=== PATIENT | male | born 1945 | race Caucasian/White ===

== ENCOUNTER → 2016-10-13 | Outpatient (CLI) | payer MEDICARE, OTHER ==
[~2016-10-13] MED LIST: AMIODARONE 200200 MG PO; AMLODIPINE BESY10 MG PO; AMLODIPINE10 MG PO; ASPIRIN 81MG TA81 MG PO; BACTRIM DS 8001 TAB PO; CHEWABLE ASPIRI81 MG PO; CIPROFLOXACIN500 MG PO; CLONIDINE 0.2M0.2 MG PO; CLONIDINE0.2 MG PO; CORICIDIN COUGH1 TAB PO; FERROUS SULFAT325 M2 PO; FLAGYL 500MG.500 MG PO; HYOSCYAMINE0.125 M1 PO; LABETALOL200 MG PO; LISINOPRIL40 MG PO; LOVASTATIN40 MG PO; METOPROLOL25 MG PO; NEXIUM40 MG PO; OPTIMUM VITAMIN1 TAB PO; PLAVIX75 M1 PO; PLAVIX75 MG PO; POTASSIUM CHLO20 ME2 PO; PROMETHAZINE HC25 M1 PO; RISPERDAL 0.50.5 MG NG; RISPERIDONE0.5 MG PO; TAMSULOSIN HYD0.4 MG PO; VISTARIL25 M1 PO; VITAMIN D1 TAB PO; WARFARIN SODIU7.5 MG PO; WARFARIN SODIUM5 MG PO; ZETIA10 MG PO
[2016-10-13 11:14] LABS: URINE BILIRUBIN - DIPSTICK NEGATIVE (NEG); URINE BLOOD NEGATIVE (NEG)
== END ==
LOC: LAB 10:41
PROVIDERS: Family Medicine
DX: N39.0 Urinary tract infection, site not specified (principal)

== ENCOUNTER → 2016-11-07 | Outpatient (CLI) | payer MEDICARE, OTHER ==
[2016-11-08 18:07] LABS: URINE BILIRUBIN - DIPSTICK NEGATIVE (NEG); URINE BLOOD TRACE-INTACT (NEG)
[2016-11-08 18:20] LABS: URINE SQUAMOUS CELLS OCC #/hpf (OCC)
== END ==
LOC: LAB 15:06
PROVIDERS: Family Medicine
DX: N39.0 Urinary tract infection, site not specified (principal)

== ENCOUNTER 2016-11-21 10:54 | Inpatient (IN) | payer MEDICARE, OTHER ==
[~2016-11-21] VITALS: Ht 195.6 cm; Wt 100.3 kg
[2016-11-21 10:55] VITALS: BP 123/90
--- NOTE | 2016-11-21 11:04 | Emergency Room Report ---
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 PT FAMILY REPORTED TO EMS PT HAS BEEN HAVING GENERALIZED WEAKNESS AND NOT MOVING AROUND MUCH NORMAL. 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 N Clinical Suspician of Infection? N Mental Status: 1 - Regular (Normal Baseline) Sepsis Risk:Possible Sepsis Risk Have you (or family members/close friends) recently traveled outside the [place]? N If Yes, where/when: Have you had exposure to infectious disease within the past month? N TB? Other? Specify: Comment History obtained from the patient and family. He is brought in by ambulance. Family states he was [facility] from a [facility] a week ago and was doing okay, ambulatory with assistance, until 2 days ago. Since then he has been very weak and complaining of pain and tenderness, pain with movement in his LEFT shoulder. The patient is a poor historian and inconsistent. He variously complains of pain in his LEFT shoulder, his back, and his LEFT lower quadrant of his abdomen which she calls "my side". Family says that yesterday he seemed to be having some trouble breathing, but seemed better today. In the emergency department they say he is again having some labored respirations. Home health nurse yesterday thought he might have a UTI and collected a urine specimen. Results not available yet. ALLERGIES Coded Allergies: No Known Allergies (07/18/15) Home Medications Active Scripts Ferrous Sulfate (Ferrous Sulfate 325MG) 325 MG PO BID #30 TAB Ref 4 Prov: 09/04/15 Lovastatin 40 MG PO QHS #30 TAB Ref 3 Prov: 09/04/15 ASPIRIN (Aspirin) 81 MG PO DAILY #30 TABLET Ref 2 Prov: 09/04/15 Reported Medications Clopidogrel Bisulfate (Plavix) 75 MG PO #30 Ref 2 Amlodipine Besylate 2.5 MG PO DAILY OXYCODONE HCL (Oxycodone Hydrochloride) 5 MG PO Q4HP PRN PAIN Acetaminophen (Acetaminophen Extra Strength) 1,000 MG PO Q6HP PRN PAIN Cyanocobalamin (Vitamin B-12) (B-12) 500 MCG PO DAILY Famotidine (Pepcid 20MG) 20 MG PO DAILY Metoprolol Tartrate 25 MG PO BID CHOLECALCIFEROL (VITAMIN D3) (Vitamin D) 1 TAB PO DAILY Metoprolol Tartrate (Metoprolol 25MG) 25 MG PO BID Furosemide (Lasix 40MG) 40 MG PO BID Metolazone (Metolazone 5MG Tablet) 5 MG PO DAILY POTASSIUM CHL (Potassium Chloride) 20 MEQ PO TID Risperidone (Risperdal 0.5 Mg Tablet) 0.5 MG PO BID Lorazepam (Ativan) 0.5 MG PO QID PRN ANXIETY Ezetimibe 10 MG PO QHS History Medical History General CAD? No Angina: Yes [place]: No Hypertension? Yes Hyperlipidemia? Yes CHF? No COPD? No Asthma? No Anemia? Yes GERD? Yes Hernia? No Thyroid Problems? Yes Hypothyroidism? No CVA? Yes Seizures? No Diabetes? No End Stage Renal Disease? No UTI? No Stones? No GB Disease: No Nephritic Syndrome? No Asplenia? No Hepatitis? No Sickle Cell Disease? No Arthritis? No Cataracts? Yes Glaucoma? No MRSA? No TB? No Cancer? No More? Yes Additional hx: SHARKO FOOT, AFIB Immunization Hx DT/Tetanus 5-10 YRS Flu REFUSES Pneumonia Refuses Surgical Hx Previous Surgery?Y RIGHT KNEE APPY DULCE CATARACTS CARDIAC CATH WITH STENT Family History Family Hx Diabetes No CAD No Hypertension Yes Hyperlipidemia No Cancer No TB No Social History Smoking Hx Smoker: Never Smoker Tobacco: No Packs/day N/A Alcohol Alcohol: No Review of Systems All Other Systems Reviewed and Negative Constitutional denies fever, malaise, weakness Respiratory shortness of breath Gastrointestinal abdominal pain Musculoskeletal see HPI, back pain, joint pain Physical Exam Vital Signs Vital Signs Date Time Temp Pulse Resp B/P Pulse O2 O2 Flow FiO2 Ox Delivery Rate 11/21 1429 97.4 110 20 141/85 94 11/21 1347 106 20 135/90 96 11/21 1245 103 20 132/81 96 11/21 1140 106 20 124/86 95 11/21 1055 97.8 103 20 123/90 94 General Appearance debilitated Eye Exam - bilateral eye normal exam, bilateral eye PERRL, bilateral eye EOMI Ear, Nose, Throat hearing grossly normal, normal ENT inspection Neck normal inspection, non-tender, supple, full range of motion Respiratory Status Yes: trachea midline, chest symmetrical, tender on palpation (LEFT). No: respiratory distress. Lung Sounds bilateral: normal breath sounds, lungs clear. Cardiovascular normal exam, regular rate/rhythm, no peripheral edema, no gallop, no JVD, no murmur, no rub, normal peripheral pulses Peripheral Pulses Pulses normal Yes Gastrointestinal normal bowel sounds, soft, no organomegaly, tenderness (mild generalized) Extremities tender LEFT shoulder. No erythema, edema, ecchymosis, or deformity. 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 No Results/Orders Laboratory Tests 11/21/16 1140: Lactic Acid 1.6 11/21/16 1055: Urine Color DK YELLOW, Urine Appearance TURBID, Urine pH 7.5, Ur Specific [place] 1.010, Urine Protein 1+ H, Urine Ketones NEGATIVE, Urine Blood 3+ H, Urine Nitrate POSITIVE H, Urine Bilirubin NEGATIVE, Urine Urobilinogen 4.0, Ur Leukocyte Esterase 1+ H, Urine RBC 20-50, Urine WBC 20-50, Ur Squamous Epith Cells 3-5, Urine Bacteria 4+, Urine Glucose NEGATIVE 11/21/16 1050: Creatine Kinase 32 L, CK-MB (CK-2) Rel Index 1.6, CK and CKMB Interp < 0.5, Troponin I < 0.02 11/21/16 1050: Sodium 134 L, Potassium 4.7, Chloride 100, Carbon Dioxide 27, BUN 41 H, Creatinine 1.5 H, Estimated Creat Clear 70, Estimated GFR (MDRD) 46, Glucose 108 H, Calcium 8.7, Total Bilirubin 1.5 H, AST 39 H, ALT 35, Alkaline Phosphatase 405 H, Total Protein 8.4 H, Albumin 2.0 L, Globulin 6.4 H, Albumin/Globulin Ratio 0.3 L, WBC 13.3 H, RBC 4.35 L, Hgb 11.1 L, Hct 37.8 L, MCV 86.9, RDW 17.2, Plt Count 267, MPV 7.3 L, Gran % 88.9 H, Gran # 11.9 H , Total Counted 100, Lymphocytes % 5.5 L, Monocytes % 5.3, Eosinophils % 0.1, Basophils % 0.2, Neutrophils 89 H, Band Neutrophils 2, Lymphocytes (Manual) 6 L, Lymphocytes # 0.7, Monocytes (Manual) 2, Monocytes # 0.7, Eosinophils # 0.0, Eosinophils # (Manual) 1, Basophils # 0.0, Platelet Estimate NORMAL, Hypochromasia 1+, Anisocytosis 1+, PUBS MCHC 29.3 L, MCH 25.5 L Current Medication Orders Sig/Oleg Start time Last Medication Dose Route Stop Time Status Admin Amlodipine Besylate 10 MG DAILY 11/22 0900 AC PO Aspirin 81 MG DAILY 11/22 09 AC PO Ceftriaxone Sodium 1 GM 0900 11/22 0900 AC Sodium Chloride 50 ML IV Clopidogrel Bisulfate 75 MG DAILY 11/22 0900 AC PO Ferrous Sulfate 325 MG BID 11/21 2099 AC PO Metoprolol Tartrate 25 MG BID 11/21 2100 AC PO Potassium Chloride 20 MEQ TID 11/21 2100 AC PO Risperidone 0.5 MG BID 11/21 2100 AC PO Ceftriaxone Sodium 1 GM 0900 11/21 1330 DC Sodium Chloride 50 ML IV Lorazepam 0.5 MG QIDP PRN 11/21 1330 AC PO Sodium Chloride 10 ML PRN PRN 11/21 1330 AC IV Influenza Virus 0.5 ML PRN PRN 11/21 1315 AC Vaccine Quadrival IM Nicotine 21 MG DAILYP PRN 11/21 1315 AC TD Sodium Chloride 1,000 ML .[id number] 11/21 1315 AC IV Ceftriaxone Sodium 0 .STK-MED ONE 11/21 1235 DC IV Sodium Chloride 50 ML .STK-MED ONE 11/21 1235 DC IV Ceftriaxone Sodium 1 GM ONCE ONE 11/21 1145 DC 11/21 Sodium Chloride 50 ML IV 11/21 1214 1237 Sodium Chloride 10 ML PRN PRN 11/21 1100 AC IV 11/22 1055 Orders Procedure Date/time Status CBC WITH AUTO DIFF 11/22 0600 Active BASIC METABOLIC PROFILE 11/22 0600 Active [id number] FAT/LO CHO/ALEENA 11/21 D Active Decision to admit 11/[address] ABD/PELVIS REQ 11/21 1129 Complete CULTURE, BLOOD 11/21 1116 Active LACTIC ACID 11/21 1116 Complete ELECTROCARDIOGRAM REQUEST 11/21 1103 Active CARDIAC ENZYMES 11/21 1103 Complete URINALYSIS/COMPLETE 11/21 1056 Complete IV SALINE LOCK 11/21 1055 Active CULTURE, URINE 11/21 1055 Active CBC WITH AUTO DIFF 11/21 1055 Complete CHEM 12 PROFILE 11/21 1055 Complete DIFFERENTIAL-WBC 11/21 1050 Complete ADMIT PATIENT 11/21 UNK Active 12 LEAD EKG-BESSON (INITIAL) 11/21 UNK Active OXYGEN REQUEST 11/21 UNK Active VITAL SIGNS 11/21 UNK Active 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 Negative for fracture, dislocation, or foreign body. Chest x-ray interpreted by Darius Hernandez M.D. poor inspiration, low lung volumes CT abdomen, pelvis Comment CT scan interpreted by radiologist: Cirrhosis, ascites, small effusions. Progress - 12:59 PM: I have discussed the case with Dr. Carrillo for Dr. Husain who agrees to admit the patient to the hospital. We discussed the patient's clinical information, including history, exam, laboratory and radiology results and ED course. Per hospital procedure, I will write temporary bridge inpatient orders on the patient. Specific orders requested by the admitting physician: Rocephin, normal saline at 75 mL per hour Departure Departure Disposition Still a Patient Clinical Impression Primary Impression: Pyelonephritis Secondary Impressions: Acute renal insufficiency Anasarca Cirrhosis Qualifiers: Hepatic cirrhosis type: unspecified hepatic cirrhosis Ascites presence: with ascites Qualified Code: K74.60 - Unspecified cirrhosis of liver Weakness Condition STABLE Referrals Harinder Husain MD (Family) ED Critical Care Critical Care No at [id number]
[2016-11-21 11:05] LABS: URINE BILIRUBIN - DIPSTICK NEGATIVE (NEG); URINE BLOOD 3+ (NEG)
[2016-11-21 11:08] LABS: LYMPH # 0.7 K/mm3 (0.7-4.5); LYMPH % 5.5 % (10-50)
[2016-11-21 11:15] LABS: HEMOGLOBIN 11.1 g/dL (14.1-18.0)
[2016-11-21] MEDS ORDERED: METOPROLOL 25 M25 MG PO (11:20)
[2016-11-21] MEDS ORDERED: LASIX 40MG. TAB40 MG PO (11:21)
[2016-11-21] MEDS ORDERED: METOLAZONE 5MG T5 MG PO (11:22)
[2016-11-21] MEDS ORDERED: POTASSIUM CHLO20 ME2 PO (11:23)
[2016-11-21] MEDS ORDERED: RISPERDAL 0.50.5 MG PO (11:25)
[2016-11-21] MEDS ORDERED: EZETIMIBE10 M1 PO (11:26)
[2016-11-21] MEDS ORDERED: ATIVAN GENERIC0.5 MG PO (11:26)
--- NOTE | 2016-11-21 11:41 | RADIOLOGY REPORT PS360 ---
[id number] [id number] HISTORY: Left shoulder pain PAINFUL TO TOUCH ORDERING PHYSICIAN: Darius Hernandez MD PATIENT AGE: 71 years COMPARISON: None FINDINGS: No fracture or dislocation. No lytic or blastic change. There is normal mineralization. The joint spaces are well-preserved. No significant degenerative/arthritic changes. No erosive changes evident. There is mild subacromial stenosis with narrowing of the subacromial space. IMPRESSION: No acute finding. Mild subacromial stenosis
--- NOTE | 2016-11-21 11:44 | RADIOLOGY REPORT PS360 ---
CHEST-PORTABLE HISTORY: weak ORDERING PHYSICIAN: Darius Hernandez MD PATIENT AGE: 71 years COMPARISON: 04/01/2016 FINDINGS: There are low lung volumes. Increased density is present in the lung bases and may be related to combination of low lung volumes with vascular crowding along with atelectasis and/or infiltrate. There is minimal blunting of the right CP angle. The remaining lungs are clear. No acute bony anomalies. IMPRESSION: Poor inspiration with vascular crowding in the lung bases with suspected atelectasis or infiltrate in the lung bases more prominent on the right with small right effusion
[2016-11-21 11:59] LABS: NEUTROPHILS 89 % (42-76)
--- NOTE | 2016-11-21 12:47 | RADIOLOGY REPORT PS360 ---
CT ABD PELVIS W/O CONTRAST CLINICAL INDICATION: Left lower quadrant pain with abdominal distention LLQ ABD PAIN ORDERING PHYSICIAN: Darius Hernandez MD PATIENT AGE: 71 years COMPARISON: 03-26 TECHNIQUE: Axial images obtained with sagittal and coronal reformats. PROCEDURE: Oral Contrast: None IV Contrast: None . FINDINGS: Lung base images show bilateral pleural effusions with bibasilar airspace disease right more extensive than left. There is cardiomegaly with coronary artery calcification There is prominent beam hardening artifact overlying the upper abdomen from the patient's arms. Study is limited secondary to lack of IV and oral contrast and due to motion artifact.. Cirrhotic appearing liver. Moderate amount of ascites in the abdomen and pelvis. Mild splenomegaly at 15 cm. No hydronephrosis or obstructing ureteral calculus. Unremarkable appearing pancreas. No obvious radio opaque gallstone. Atherosclerotic calcification involves the aorta and its branches. No evidence of aneurysm or acute retroperitoneal hemorrhage.. Urinary bladder decompressed with slightly thickened wall No intestinal obstruction or free air. No evidence of diverticulitis or appendicitis IMPRESSION: Cirrhosis with a moderate amount of ascites and mild splenomegaly.
[2016-11-21] MEDS ORDERED: AMLO2.5T PO (14:45)
[2016-11-21] MEDS ORDERED: ACETAMINOPHEN500 M5 PO (14:46)
[2016-11-21] MEDS ORDERED: OXYCODONE HYDROC5 MG PO (14:46)
[2016-11-21] MEDS ORDERED: B-12500 MC1 PO (14:47)
[2016-11-21] MEDS ORDERED: Pepcid20 MG PO (14:47)
[2016-11-21 15:11] VITALS: BP 132/70
[2016-11-21] MEDS ORDERED: METOPROLOL TART25 MG PO (15:33)
[2016-11-21] MEDS ORDERED: KLOR-CON M2020 MEQ PO (16:37)
--- NOTE | 2016-11-21 16:52 | HISTORY AND PHYSICAL REPORT ---
History and Physical ([facility]) Date of admission: 11/21/16 Chief complaint: AMS, Weakness, Left shoulder pain History: History of Present Illness: Mr. Wu is a 71yo male who was a patient at [facility] but recently left stating that being home made him feel better. His family called the office yesterday to report he was generally not feeling well. He was SOA and lethargic /confused and had some left arm pain. They were instructed to give him an extra dose of lasix and bring him to the ER if he was not any better. He presented to the ER today by ambulance. He had been ambulatory with assistance until 2 days ago when he became weak and could no longer walk. He is still c/o pain with movement in his LEFT shoulder. He also c/o some generalized abdominal pain. His breathing had improved slightly but according to the ER note, he began having labored breathing while in the ER and this has continued. The home health nurse had thought he may have a UTI and did a U/A yesterday but results are not back. He had a U/A in the ER and it appears he has a UTI. He was admitted for further evaluation and treatment. His POA also states that he had some facial drooping on the right yesterday and she was worried he was having a stroke, however that has improved today. Past Medical History: Medical History: CAD? No Angina: Yes VA: No Hypertension? Yes Hyperlipidemia? Yes CHF? Yes DVT? No PE? No COPD? No Asthma? No Anemia? Yes GERD? Yes Hernia? No Thyroid Problems? Yes Hypothyroidism? No CVA? No Seizures? No Diabetes? No Renal Insuffiency? No UTI? No Stones? No GB Disease: No Nephritic Syndrome? No Asplenia? No Hepatitis? No Sickle Cell Disease? No Arthritis? No Cataracts? Yes Glaucoma? No MRSA? No TB? No Anxiety? No Depression? No Cancer? No More? Yes Additional hx: 1. SHARKO FOOT 2. AFIB 3. TIA 4. MENTAL RETARDATION Surgical history: Previous Surgery?Y 1. RIGHT KNEE 2. APPENDECTOMY 3. DULCE CATARACTS 4. CARDIAC CATH WITH STENT 5. KNEE ASPIRATION 6. WISDOM TEETH 7. C-SCOPE 8. CARDIOVERSION X 2 9. RIGHT TKA 10. OPEN REDUCTION AND INTERNAL FIXATION OF RIGHT PERIPROSTHETIC PATELLAR FX Medications: Active Scripts Ferrous Sulfate (Ferrous Sulfate 325MG) 325 MG PO BID #30 TAB Ref 4 Prov: 09/04/15 Lovastatin 40 MG PO QHS #30 TAB Ref 3 Prov: 09/04/15 ASPIRIN (Aspirin) 81 MG PO DAILY #30 TABLET Ref 2 Prov: 09/04/15 Reported Medications Clopidogrel Bisulfate (Plavix) 75 MG PO #30 Ref 2 Amlodipine Besylate 2.5 MG PO DAILY OXYCODONE HCL (Oxycodone Hydrochloride) 5 MG PO Q4HP PRN PAIN Acetaminophen (Acetaminophen Extra Strength) 1,000 MG PO Q6HP PRN PAIN Cyanocobalamin (Vitamin B-12) (B-12) 500 MCG PO DAILY Famotidine (Pepcid 20MG) 20 MG PO DAILY Potassium Chloride (Klor-Con M20) 40 MEQ PO TID Metoprolol Tartrate 25 MG PO BID CHOLECALCIFEROL (VITAMIN D3) (Vitamin D) 1 TAB PO DAILY Furosemide (Lasix 40MG) 40 MG PO BID Metolazone (Metolazone 5MG Tablet) 5 MG PO DAILY Risperidone (Risperdal 0.5 Mg Tablet) 0.5 MG PO BID Lorazepam (Ativan) 0.5 MG PO QID PRN ANXIETY Ezetimibe 10 MG PO QHS Allergies: Coded Allergies: No Known Allergies (07/18/15) Family History: Family history: Postive for: CAD, HTN, cancer, stroke. Social History: Smoking Hx Tobacco: No Smoker: Never Smoker Type: N/A Packs/day: N/A Are you exposed to second hand No Alcohol: Alcohol: No Hx of Drug Use: Drug Use? No Review of Systems: Constitutional Positive for: fatigue, lethargy, malaise, weak. ENT No: nasal congestion, sore throat. Cardiovascular Positive for: edema. No: chest pain, palpitations. Respiratory Positive for: dyspnea on exertion, shortness of air. No: productive cough ( sputum), wheezing. GI Positive for: abdominal pain. No: diarrhea, nausea, vomitting. (male) No: frequency, hematuria. Neurological Positive for: confusion, weakness. No: headache, syncope. Musculoskeletal Positive for: joint pain (left shoulder). No: lumbar pain. Physical Exam: Vital signs: 1ST Vital Signs Result Date Time Pulse Ox 94 10/13 1055 B/P 123/90 11/21 1054 Temp 97.8 11/21 1054 Pulse 103 11/21 1054 Resp 20 11/21 1054 Exam: General appearance: lethargic, Able to answer questions but very drowsy, can follow some commands Eyes: EOM's w/normal ROM, PERRLA ENT: nose normal, pharynx normal, dry mucous membranes Neck: non-tender, full range of motion, supple Cardiovascular: irregularly irregular Respiratory: clear to auscultation, breathing is labored ABD: distended, BS present, diffusely ttp Extremities: 2+ pretibial edema bilaterally Musculoskeletal: equal muscle strength, motor intact, sensation intact, pain with palpation of the AC joint on the left and pain with flexion and extension of the shoulder Skin: jaundice, pale Neuro: lethargic, can answer questions and follow some commands, CN 2-12 intact, strength equal bilaterally Lab data: Labs: Laboratory Tests 11/21/16 1140: Lactic Acid 1.6 11/21/16 105: Urine Color DK YELLOW, Urine Appearance TURBID, Urine pH 7.5, Ur Specific [place] 1.010, Urine Protein 1+ H, Urine Ketones NEGATIVE, Urine Blood 3+ H, Urine Nitrate POSITIVE H, Urine Bilirubin NEGATIVE, Urine Urobilinogen 4.0, Ur Leukocyte Esterase 1+ H, Urine RBC 20-50, Urine WBC 20-50, Ur Squamous Epith Cells 3-5, Urine Bacteria 4+, Urine Glucose NEGATIVE 11/21/16 1050: Creatine Kinase 32 L, CK-MB (CK-2) Rel Index 1.6, CK and CKMB Interp < 0.5, Troponin I < 0.02 11/21/16 1050: Sodium 134 L, Potassium 4.7, Chloride 100, Carbon Dioxide 27, BUN 41 H, Creatinine 1.5 H, Estimated Creat Clear 70, Estimated GFR (MDRD) 46, Glucose 108 H, Calcium 8.7, Total Bilirubin 1.5 H, AST 39 H, ALT 35, Alkaline Phosphatase 405 H, Total Protein 8.4 H, Albumin 2.0 L, Globulin 6.4 H, Albumin/Globulin Ratio 0.3 L, WBC 13.3 H, RBC 4.35 L, Hgb 11.1 L, Hct 37.8 L, MCV 86.9, RDW 17.2, Plt Count 267, MPV 7.3 L, Gran % 88.9 H, Gran # 11.9 H , Total Counted 100, Lymphocytes % 5.5 L, Monocytes % 5.3, Eosinophils % 0.1, Basophils % 0.2, Neutrophils 89 H, Band Neutrophils 2, Lymphocytes (Manual) 6 L, Lymphocytes # 0.7, Monocytes (Manual) 2, Monocytes # 0.7, Eosinophils # 0.0, Eosinophils # (Manual) 1, Basophils # 0.0, Platelet Estimate NORMAL, Hypochromasia 1+, Anisocytosis 1+, PUBS MCHC 29.3 L, MCH 25.5 L Microbiology 11/21 1140 BLOOD: Anaerobic Blood Culture - RECD 11/21 1140 BLOOD: Aerobic Blood Culture - RECD 11/21 1140 BLOOD: Anaerobic Blood Culture - RECD 11/21 1140 BLOOD: Aerobic Blood Culture - RECD 11/21 1055 URINE CC: Urine Culture - RECD Radiology results: Results: Left Shoulder X-ray - No acute finding. Mild subacromial stenosis CXR - Poor inspiration with vascular crowding in the lung bases with suspected atelectasis or infiltrate in the lung bases more prominent on the right with small right effusion CT Abdomen/Pelvis Cirrhosis with a moderate amount of ascites and mild splenomegaly. Diagnosis(es): 1. Urinary tract infection Status: Acute 2. Acute renal insufficiency Status: Acute 3. Cirrhosis Status: Acute 4. Weakness Status: Acute 5. Liver failure Status: Acute 6. Elevated LFTs Status: Acute 7. Leukocytosis Status: Acute 8. Hyperbilirubinemia Status: Acute 9. Left shoulder pain Status: Acute 10. Essential hypertension Status: Chronic 11. Anemia Status: Chronic 12. Lower extremity edema Status: Chronic 13. Atrial fibrillation Status: Chronic Plan: Patient has been started on abx and IVF's. Will get a RUQ U/S and an amylase and lipase d/t new onset jaundice and cirrhosis. Will restart some of his home medications but will hold his cholesterol medication for now d/t elevated LFT's. Will await blood and urine cultures. (Leilani Clark) Diagnosis(es): 1. Urinary tract infection Status: Acute 2. Acute renal insufficiency Status: Acute 3. Cirrhosis Status: Acute 4. Weakness Status: Acute 5. Liver failure Status: Acute 6. Elevated LFTs Status: Acute 7. Leukocytosis Status: Acute 8. Hyperbilirubinemia Status: Acute 9. Left shoulder pain Status: Acute 10. Essential hypertension Status: Chronic 11. Anemia Status: Chronic 12. Lower extremity edema Status: Chronic 13. Atrial fibrillation Status: Chronic Plan: Patient seen and agree with above note. (Tanmay Carrillo MD) at 1651 at 1704
[2016-11-21 19:28] VITALS: BP 133/86
[2016-11-21 19:50] VITALS: BP 117/70
[2016-11-22] VITALS (8 sets, daily range): BP systolic 115–144; BP diastolic 70–96
[2016-11-22 06:34] LABS: LYMPH # 0.9 K/mm3 (0.7-4.5); LYMPH % 8.3 % (10-50)
[2016-11-22 06:48] LABS: HEMOGLOBIN 9.1 g/dL (14.1-18.0)
--- NOTE | 2016-11-22 07:46 | RADIOLOGY REPORT PS360 ---
US RUQ-(ABD LTD)1ORGAN/QUAD/FU HISTORY: jaundice, hyperbilirubinemia, cirrhosis new onset ORDERING PHYSICIAN: Harinder Husain MD PATIENT AGE: 71 years COMPARISON: None FINDINGS: PANCREAS:Not well delineated LIVER:Liver is small with some increased echogenicity. No focal liver lesion evident. RIGHT KIDNEY:No hydronephrosis. 2 cm cyst upper pole right kidney GALLBLADDER:No gallstones, gallbladder wall thickening, pericholecystic fluid, or biliary dilatation. Mild gallbladder distention. There is a moderate to large amount of ascites. IMPRESSION: 1. No evidence of cholelithiasis or biliary distention 2. Cirrhotic appearing liver with ascites
--- NOTE | 2016-11-22 08:20 | ACUTE CARE PROGRESS NOTE (QUA) ---
Progress Notes Subjective Date 11/22/16 Time 0815 Note Patient was agitated several times overnight. He received two doses of Lorazepam but really only calmed down after a family member was called in from home to sit with him. Patient is calm this morning and says he feels tired, ate a little of his breakfast. Objective Findings Laboratory Tests 11/22/16 0550: Sodium 137, Potassium 4.6, Chloride 104, Carbon Dioxide 25, BUN 39 H, Creatinine 1.3, Estimated Creat Clear 85, Estimated GFR (MDRD) 54, Glucose 107 H, Calcium 7.7 L, Total Bilirubin 1.0, AST 29, ALT 25, Alkaline Phosphatase 326 H, Total Protein 6.0 L, Albumin 1.5 L, Globulin 4.5 H, Albumin/Globulin Ratio 0.3 L, WBC 10.9 H, RBC 3.62 L, Hgb 9.1 L, Hct 31.1 L, MCV 85.9, RDW 17.4, Plt Count 199, MPV 7.7, Gran % 84.5 H, Gran # 9.2 H, Lymphocytes % 8.3 L, Monocytes % 6.9, Eosinophils % 0.1, Basophils % 0.2, Lymphocytes # 0.9, Monocytes # 0.8, Eosinophils # 0.0, Basophils # 0.0, PUBS MCHC 29.2 L, MCH 25.1 L 11/21/16 1140: Lactic Acid 1.6 11/21/16 1055: Urine Color DK YELLOW, Urine Appearance TURBID, Urine pH 7.5, Ur Specific [place]uit[place] 1.010, Urine Protein 1+ H, Urine Ketones NEGATIVE, Urine Blood 3+ H, Urine Nitrate POSITIVE H, Urine Bilirubin NEGATIVE, Urine Urobilinogen 4.0, Ur Leukocyte Esterase 1+ H, Urine RBC 20-50, Urine WBC 20-50, Ur Squamous Epith Cells 3-5, Urine Bacteria 4+, Urine Glucose NEGATIVE 11/21/16 1050: Creatine Kinase 32 L, CK-MB (CK-2) Rel Index 1.6, CK and CKMB Interp < 0.5, Troponin I < 0.02 11/21/16 1050: Amylase 41, Lipase 128 11/21/16 1050: Sodium 134 L, Potassium 4.7, Chloride 100, Carbon Dioxide 27, BUN 41 H, Creatinine 1.5 H, Estimated Creat Clear 70, Estimated GFR (MDRD) 46, Glucose 108 H, Calcium 8.7, Total Bilirubin 1.5 H, AST 39 H, ALT 35, Alkaline Phosphatase 405 H, Total Protein 8.4 H, Albumin 2.0 L, Globulin 6.4 H, Albumin/Globulin Ratio 0.3 L, WBC 13.3 H, RBC 4.35 L, Hgb 11.1 L, Hct 37.8 L, MCV 86.9, RDW 17.2, Plt Count 267, MPV 7.3 L, Gran % 88.9 H, Gran # 11.9 H , Total Counted 100, Lymphocytes % 5.5 L, Monocytes % 5.3, Eosinophils % 0.1, Basophils % 0.2, Neutrophils 89 H, Band Neutrophils 2, Lymphocytes (Manual) 6 L, Lymphocytes # 0.7, Monocytes (Manual) 2, Monocytes # 0.7, Eosinophils # 0.0, Eosinophils # (Manual) 1, Basophils # 0.0, Platelet Estimate NORMAL, Hypochromasia 1+, Anisocytosis 1+, PUBS MCHC 29.3 L, MCH 25.5 L Microbiology 11/21 1140 BLOOD: Anaerobic Blood Culture - RES 11/21 1140 BLOOD: Aerobic Blood Culture - RES 11/21 1140 BLOOD: Anaerobic Blood Culture - RES 11/21 1140 BLOOD: Aerobic Blood Culture - RES 11/21 1055 URINE CC: Urine Culture - RES Vital Signs Date Time Temp Pulse Resp B/P Pulse O2 O2 Flow FiO2 Ox Delivery Rate 11/22 0728 97.5 122 24 144/82 94 ROOM AIR 11/22 0349 97.5 106 28 117/70 95 ROOM AIR 11/22 0039 32 11/22 0010 97.3 66 32 123/93 94 ROOM AIR 11/21 2215 22 11/21 1950 97.5 106 28 117/70 95 11/21 1928 97.7 110 22 133/86 94 ROOM AIR 11/21 1511 113 11/21 1511 97.6 113 20 132/70 11/21 1511 98 ROOM AIR 11/21 1511 97.6 113 20 132/70 98 ROOM AIR 11/21 1429 97.4 110 20 141/85 94 11/21 1347 106 20 135/90 96 11/21 1245 103 20 132/81 96 11/21 1140 106 20 124/86 95 11/21 1055 97.8 103 20 123/90 94 Intake and Output 8 hours 11/22 0700 Intake Total 936 Output Total 100 Balance 836 Intake, IV 936 Output, Urine 100 Patient 260 lb Weight Last VS-Temp:97.5 B/P:144/82 Pulse:122 Resp:24 SaO2:94 ROOM AIR Last weight lbs:260 oz:6 K.104 Method:Bed Scales Exam General appearance: active, no acute distress Cardiovascular: irregular rate & rhythm Respiratory: clear to auscultation (anteriorly) ABD: normal bowel sounds, soft, no tenderness Reviewed: lab results (urine culture w/ bact. growth) Assessment/Plan Problem List 1. Urinary tract infection Status: Acute 2. Acute renal insufficiency Status: Acute 3. Cirrhosis Status: Acute 4. Weakness Status: Acute 5. Liver failure Status: Acute 6. Elevated LFTs Status: Acute 7. Leukocytosis Status: Acute 8. Hyperbilirubinemia Status: Acute 9. Left shoulder pain Status: Acute 10. Essential hypertension Status: Chronic 11. Anemia Status: Chronic 12. Lower extremity edema Status: Chronic 13. Atrial fibrillation Status: Chronic This inpt stay is expected to cross 2 MNs from start of care Yes Comments: Patient has improved since admission, continue current care, await culture results. at 0820
--- NOTE | 2016-11-22 13:31 | PHARMACY CLINIC NOTE ---
Patient Demographics Patient Demographics Admission date: 11/21/16 Date: 11/22/16 Time: 1330 Allergies Coded Allergies: No Known Allergies (07/18/15) HEIGHT- FT: 6 IN: 5.00 K.104 VTE General Information Labs: Laboratory Tests 11/22 0550 Hematology Hgb (14.1 - 18.0 g/dL) 9.1 L Hct (42.0 - 52.0 %) 31.1 L Plt Count (142 - 424 K/mm3) 199 Disclaimer The following section includes nursing documentation that has been pulled in for pharmacy review. Patient's VTE score: 2 Patient's VTE Risk: VERY LOW RISK Clinical trial participant? No VTE prophylaxis F 0371 VTE prophylaxis ordered? Yes Type of prophylaxis/treatment: ALFA at 7364
--- OUTSIDE RECORDS SUMMARY | 2016-11-22 19:24 | External Medical Summary Rpt ---
Author Author CHELY [facility] Organization [facility] Address Unknown Phone Unavailable Care Team Providers Care Squeak Rattle And Leak Repairer Name Role Phone NIKKI, (REF) PCP [phone] Encounter CHELY WEST [id number] Date(s): 04/02/16 - 04/22/16 [facility] [address] [place] [address]- Discharge Diagnosis: Osteoarthritis Discharge Disposition: IP Self Care / Home Attending Physician: JOCE MCGHEE MD-ORT Admitting Physician: RUBEN MARCIAL DO Referring Physician: JOCE MCGHEE MD-ORAdalberto Reason for Visit UNILATERAL PRIMARY OSTEOARTHRITIS, RIGHT KNEE Vital Signs Most recent 1 2 3 4 to oldest [Reference Range]: Temperature Oral Oral Oral Source (04/22/16 (04/22/16 (04/21/16 8:09 AM) 3:00 AM) 11:00 PM) Temperature Fahrenheit Fahrenheit Fahrenheit Mode (04/22/16 (04/22/16 (04/21/16 8:09 AM) 3:00 AM) 11:00 PM) Temperature, 98 Deg F 97.4 Deg F 97.5 Deg F Fahrenheit (04/22/16 (04/22/16 (04/21/16 [96.8-99.7 8:09 AM) 3:00 AM) 11:00 PM) Deg F] Clinical 36.3 Deg C 36.4 Deg C 36.7 Deg C Temperature, (04/22/16 (04/21/16 (04/21/16 C 3:00 AM) 11:00 PM) 8:00 PM) Pulse Method Pulse Non-Invasive Oximetry BP Device (04/21/16 (04/15/16 1:18 10:16 AM) PM) Pulse Source Radial, Left (04/21/16 10:16 AM) Pulse Rhythm Regular Irregular (04/21/16 (04/15/16 1:18 10:16 AM) PM) Heart Rate, 91 bpm 91 bpm 99 bpm 98 bpm Apical (04/22/16 (04/22/16 (04/21/16 (04/21/16 [60-100 bpm] 8:58 AM) 8:58 AM) 10:19 PM) 10:19 PM) Peripheral 82 bpm 71 bpm Pulse Rate (04/21/16 (04/15/16:18 [60-100 bpm] 10:16 AM) PM) Heart Rate 88 bpm 77 bpm 67 bpm Monitored (04/22/16 (04/22/16 (04/21/16 [60-100 bpm] 8:09 AM) 3:00 AM) 11:00 PM) Respiratory 16 16 16 Rate [14-20 Breaths/Min Breaths/Min Breaths/Min Breaths/Min] (04/22/16 (04/22/16 (04/21/16 8:09 AM) 3:00 AM) 11:00 PM) Blood Arm, right Arm, left Pressure upper upper Location (04/21/16 (04/15/16 1:18 10:16 AM) PM) Blood Non-Invasive Non-Invasive Pressure BP Device BP Device Source (04/21/16 (04/15/16:18 10:16 AM) PM) Blood Side, Right Sitting Pressure (04/21/16 (04/15/16:18 Position 10:16 AM) PM) Blood 161/93 mmHg 133/88 mmHg 127/73 mmHg Pressure *HI*(04/22/16 (04/22/16 (04/21/16 [90-140/60-9 8:09 AM) 3:00 AM) 11:00 PM) 0 mmHg] Mean 115 (04/21/16 101 (04/21/16 102 (04/21/16 Arterial 3:05 PM) 2:50 PM) 2:35 PM) Pressure (MAP)-BMDI Oxygen 97 % 100 % 100 % Saturation (04/22/16 (04/22/16 (04/21/16 [94-100 %] 8:09 AM) 3:00 AM) 11:00 PM) Oxygen Room air Room air Nasal Therapy Mode (04/22/16 (04/21/16 cannula 8:00 AM) 8:00 PM) (04/21/16 2:10 PM) Oxygen Flow 3 Liter/Min 10 Liter/Min 2 Liter/Min Rate (04/21/16 (04/21/16 (04/21/16 2:10 PM) 2:06 PM) 10:50 AM) Height Stated Stated Source (04/21/16 (04/15/16 1:18 10:16 AM) PM) Height Entry [place] Format (04/21/16 (04/15/16 1:18 10:16 AM) PM) Height/Lengt 75.5 Inch 75.5 Inch h CHILEAN (04/21/16 (04/15/16 1:18 10:16 AM) PM) CLINICALHEIG 191.77 cm 191.77 cm HT (04/21/16 (04/15/16 1:18 10:16 AM) PM) Weight Standing Standing Source scale scale (04/21/16 (04/15/16 1:18 10:16 AM) PM) Weight Entry [place] Format (04/21/16 (04/15/16 1:18 10:16 AM) PM) Weight 211 lb 216 lb Haitian lb (04/21/16 (04/15/16 1:18 10:16 AM) PM) CLINICALWEIG 95.91 kg 98.18 kg HT (04/21/16 (04/15/16 1:18 10:16 AM) PM) Body Surface 2.26 m2 2.28 m2 Area (BSA) (04/21/16 (04/15/16 1:18 10:16 AM) PM) Body Mass 26.1 kg/m2 26.7 kg/m2 Index *HI*(04/21/16 *HI*(04/15/16 [19.0-24.0 10:16 AM) 1:18 PM) kg/m2] [place] Body 85 kg 85 kg Weight (04/21/16 (04/15/16 1:18 10:16 AM) PM) Problem List Condition Effective Status Health Informant Dates Status Anemia(Confi Active rmed) CAD Active (coronary artery disease)(Con firmed) Knee pain, Active right(Confir med) Charcot's Active joint of foot (right)(Conf irmed) Chronic Active atrial fibrillation (Confirmed) Acid Active reflux(Confi rmed) HTN Active (hypertensio n)(Confirmed ) Elevated Active lipids(Confi rmed) Mental Active retardation( Confirmed) Osteoarthrit Active is(Confirmed )1 Hx: TIA Active (transient ischemic attack)(Conf irmed) 1right knee Osteoarthritis status post Right knee Arthoplasty Allergies, Adverse Reactions, Alerts No Known Allergies Medications acetaminophen (Tylenol 500 mg oral tablet)2 Tab, Oral, Every 6 Hours, As Needed, as needed for pain, Refills: 0 amLODIPine (amLODIPine 10 mg oral tablet) 1 Tab, Oral, Every Day, Refills: 0 aspirin (aspirin 81 mg oral tablet) 1 Tab, Oral, Every Day, Refills: 0 cholecalciferol (Vitamin D3 2000 intl units oral tablet)1 Tab, Oral, Every Day, Refills: 0 cloNIDine (cloNIDine 0.2 mg oral tablet) 0.5 Tab, Oral, Three Times A Day, Refills: 0 clopidogrel (Plavix 75 mg oral tablet) 1 Tab, Oral, Every Day, Refills: 0 cyanocobalamin (Vitamin B-12 500 mcg oral tablet)1 Tab, Oral, Every Day, Refills: 0 diphenhydrAMINE (Benadryl 25 mg oral tablet)0.5 Tab, Oral, At Bedtime, As Needed, Insomnia, Refills: 0 docusate (Colace 100 mg oral capsule) 1 Cap, Oral, Two Times A Day, Refills: 0 docusate-senna (Senokot S) 2 Tab, Oral, At Bedtime, Refills: 0 esomeprazole (NexIUM 40 mg oral delayed release capsule)1 Cap, Oral, Every Day, Refills: 0 ezetimibe (Zetia) 10 mg, Oral, At Bedtime, Refills: 0 ferrous sulfate (ferrous sulfate 325 mg (65 mg elemental iron) oral delayed release tablet)1 Tab, Oral, Two Times A Day, Refills: 0 gabapentin (gabapentin 300 mg oral capsule) 1 Cap, Oral, At Bedtime, Refills: 0 lisinopril (lisinopril 40 mg oral tablet) 0.5 Tab, Oral, Two Times A Day, Refills: 0 lovastatin (lovastatin 40 mg oral tablet) 1 Tab, Oral, At Bedtime, Refills: 0 metoprolol (Metoprolol Tartrate 25 mg oral tablet)0.5 Tab, Oral, Two Times A Day, Refills: 0 morphine (MS Contin 15 mg oral tablet, extended release)1 Tab, Oral, Interval Every 12 Hours, Refills: 0 multivitamin 1 Tab, Oral, Every Day, Refills: 0 oxyCODONE (oxyCODONE 5 mg oral tablet)1 Tab, Oral, Every 4 Hours, As Needed, Pain (Moderate 4-6), Refills: 0 risperiDONE (RisperDAL 0.5 mg oral tablet) 1 Tab, Oral, At Bedtime, Refills: 0 senna8.6 mg, Oral, At Bedtime, As Needed, Constipation, Refills: 0 sodium biphosphate-sodium phosphate (Fleet Enema)133 mL, Rectal, One Time Order, As Needed, Constipation, Refills: 0 Results GENERAL CHEMISTRY Most recent 1 2 to oldest [Reference Range]: Sodium Level 141 mmol/L 141 mmol/L [136-145 (04/22/16 4:14 AM) (04/21/16 4:23 PM) mmol/L] Potassium 4.2 mmol/L 3.6 mmol/L Level (04/22/16 4:14 AM) (04/21/16 4:23 PM) [3.5-5.1 mmol/L] Chloride 105 mmol/L 105 mmol/L Level (04/22/16 4:14 AM) (04/21/16 4:23 PM) [98-107 mmol/L] Carbon 26 mmol/L 23 mmol/L Dioxide (04/22/16 4:14 AM) (04/21/16 4:23 PM) Level [21-32 mmol/L] Anion Gap 14 17 [9-20] (04/22/16 4:14 AM) (04/21/16 4:23 PM) Glucose 139 mg/dL 150 mg/dL Level *HI* *HI* [74-106 (04/22/16 4:14 AM) (04/21/16 4:23 PM) mg/dL] Blood Urea 21 mg/dL 18 mg/dL Nitrogen *HI* (04/21/16 4:23 PM) [7-18 mg/dL] (04/22/16 4:14 AM) Creatinine 1.03 mg/dL 0.97 mg/dL Level (04/22/16 4:14 AM) (04/21/16 4:23 PM) [0.80-1.30 mg/dL] eGFR 86 mL/min/1.73m2 92 mL/min/1.73m2 [>=60 (04/22/16 4:14 AM) (04/21/16 4:23 PM) mL/min/1.73m 2] eGFR 71 mL/min/1.73m2 76 mL/min/1.73m2 NonAfrican (04/22/16 4:14 AM) (04/21/16 4:23 PM) [>=60 mL/min/1.73m 2] Bun/Creatini 20.4 18.6 ne *HI* (04/21/16 4:23 PM) [8.0-20.0] (04/22/16 4:14 AM) Calcium 8.8 mg/dL 8.9 mg/dL Level (04/22/16 4:14 AM) (04/21/16 4:23 PM) [8.5-10.1 mg/dL] HEMATOLOGY Most recent 1 2 to oldest [Reference Range]: Hgb 12.5 Gram/dL 13.6 Gram/dL [13.7-17.5 *LOW* *LOW* Gram/dL] (04/22/16 4:14 AM) (04/21/16 1:56 PM) Hct 38.8 % 41.4 % [40.1-51.0 *LOW* (04/21/16 1:56 PM) %] (04/22/16 4:14 AM) COAGULATION Most recent 1 2 to oldest [Reference Range]: PT [9.6-11.5 11.3 Second(s) Second(s)] (04/22/16 4:14 AM) INR 1.1 [0.9-1.1] (04/22/16 4:14 AM) BLOOD BANK Most recent 1 2 to oldest [Reference Range]: ABO/Rh A POS *Unknown* (04/21/16 9:59 AM) Antibody Negative ABSC Screen (04/21/16 9:59 AM) (Tube) Immunizations No data available for this section Procedures Procedure Date Related Body Site Diagnosis cardiac conversion 05/11 012 cardioversion 08/10 010 heart cath - insertion of 02/16/ coronary artery stent 10 bilateral cataract ext / IOL 2007 appendectomty colonscopy ext wisdom teeth right knee aspiration Social History Social History Response Type Smoking Status Never smoker; Second Hand Smoke Exposure No Assessment and Plan Extracted from: Title: Freetext Note Author: GUCCI BAKER Date: 04/22/16 Admit Date 04/21/2016 04:21Discharge Date No Discharge Date on RecordDischarge Activity Special Instructions - follow ortho recommendationsDischarge Diet Diabetic diet (carb controlled), Special Instructions - cardiac dietDischarge Follow Up JOCE MCGHEE - 05/09/2016 12:00Procedures Knee Total Joint Replacement (Checked In) 04/21/2016 12:30 PAT for Surgery (Checked In) 04/15/2016 13:00 Discharge Medications (23) Active amLODIPine 10 mg oral tablet 10 mg = 1 Tab, Oral, Daily aspirin 81 mg oral tablet 81 mg = 1 Tab, Oral, Daily Benadryl 25 mg oral tablet 12.5 mg = 0.5 Tab, PRN, Oral, At Bedtime cloNIDine 0.2 mg oral tablet 0.1 mg = 0.5 Tab, Oral, TID Colace 100 mg oral capsule 100 mg = 1 Cap, Oral, BID ferrous sulfate 325 mg (65 mg elemental iron) oral delayed release tablet 325 mg = 1 Tab, Oral, BID Fleet Enema 133 mL, PRN, Rectal, 1-Time gabapentin 300 mg oral capsule 300 mg = 1 Cap, Oral, At Bedtime lisinopril 40 mg oral tablet 20 mg = 0.5 Tab, Oral, BID lovastatin 40 mg oral tablet 40 mg = 1 Tab, Oral, At Bedtime Metoprolol Tartrate 25 mg oral tablet 12.5 mg = 0.5 Tab, Oral, BID MS Contin 15 mg oral tablet, extended release 15 mg = 1 Tab, Oral, [id number] multivitamin 1 Tab, Oral, Daily NexIUM 40 mg oral delayed release capsule 40 mg = 1 Cap, Oral, Daily oxyCODONE 5 mg oral tablet 5 mg = 1 Tab, PRN, Oral, Q4H Plavix 75 mg oral tablet 75 mg = 1 Tab, Oral, Daily RisperDAL 0.5 mg oral tablet 0.5 mg = 1 Tab, Oral, At Bedtime senna 8.6 mg, PRN, Oral, At Bedtime Senokot S 2 Tab, Oral, At Bedtime Tylenol 500 mg oral tablet 1,000 mg = 2 Tab, PRN, Oral, Q6H Vitamin B-12 500 mcg oral tablet 500 mcg = 1 Tab, Oral, Daily Vitamin D3 2000 intl units oral tablet 2,000 Int Units = 1 Tab, Oral, Daily Zetia 10 mg, Oral, At BedtimeDischarge DxSevere degenerative joint diseaseS/P Right Total Knee ArthroplastyRight knee painCAD (coronary artery disease)Chronic atrial fibrillationHT N (hypertension)Mental retardationGERDAnemiaHLPTIA (transient ischemic attack)Hospital course:Patient is a 71 year old gentleman who underwent right total knee arthoplasty. he tolerated procedure well. Pain medication dvt px and activity per ortho. His co-morbidities remained stable. His blood sugars in morning ar high indicating that he has impaired glucose tolerance. I discussed with patient and at bedside. He has had elevated sugars. He is on diet control. he is advised to be on diabetic cardiac diet. PCP to further follow up on this. Plan discussed with patient who verbalzised undersdtanding and agreed to it. he is doing good and finished his entire lunch. Right knee dressing is clean with no discharge.Time spent: 37 minutes Vitamin B-12 500 mcg oral tablet 500 mcg = 1 Tab, Oral, Daily Vitamin D3 2000 intl units oral tablet 2,000 Int Units = 1 Tab, Oral, Daily Zetia 10 mg, Oral, At Bedtime Discharge Dx Severe degenerative joint disease S/P Right Total Knee Arthroplasty Right knee pain CAD (coronary artery disease) Chronic atrial fibrillation HT N (hypertension) Mental retardation GERD Anemia HLP TIA (transient ischemic attack) Hospital course: Patient is a 71 year old gentleman who underwent right total knee arthoplasty. he tolerated procedure well. Pain medication dvt px and activity per ortho. His co-morbidities remained stable. His bloo d sugars in morning ar high indicating that he has impaired glucose tolerance. I discussed with patient and at bedside. He has had elevated sugars. He is on diet control. he is advised to be on diabetic cardiac diet. PCP to further follow up on this. Plan discussed with patient who verbalzised undersdtanding and agreed to it. he is doing good and finished his entire lunch. Right knee dressing is clean with no discharge. Time spent: 37 minutes Extracted from: Title: Pharmacy Note- Author: JACKELINE BROWN, Date: 04/22/16 Home Medications [facility] verified patient's allergies and home medication list with the patient and pharmacy records and are as follows:Home Medications (16) ActiveamLODIPine 10 mg oral tablet 10 mg = 1 Tab, Oral, Dailyaspirin 81 mg oral tablet 81 mg = 1 Tab, Oral, DailycloNIDine 0.2 mg oral tablet 0.1 mg = 0.5 Tab, Oral, TIDferrous sulfate 325 mg (65 mg elemental iron) oral delayed release tablet 325 mg = 1 Tab, Oral, BIDlisinopril 40 mg oral tablet 20 mg = 0.5 Tab, Oral, BIDlovastatin 40 mg oral tablet 40 mg = 1 Tab, Oral, At BedtimeMetoprolol Tartrate 25 mg oral tablet 12.5 mg = 0.5 Tab, Oral, BIDmultivitamin 1 Tab, Oral, DailyNexIUM 40 mg oral delayed release capsule 40 mg = 1 Cap, Oral, DailyPlavix 75 mg oral tablet 75 mg = 1 Tab, Oral, Dailypotassium chloride 20 mEq oral tablet, extended release 20 mEq = 1 Tab, Oral, DailyRisperDAL 0.5 mg oral tablet 0.5 mg = 1 Tab, Oral, At BedtimeTylenol 500 mg oral tablet 1,000 mg = 2 Tab, PRN, Oral, [id number] B-12 500 mcg oral tablet 500 mcg = 1 Tab, Oral, DailyVitamin D3 2000 intl units oral tablet 2,000 Int Units = 1 Tab, Oral, DailyZetia 10 mg, Oral, At BedtimeAllergies (1) ActiveReactionNo Known AllergiesNone DocumentedThJackeline smalls, BirdieD, MPH Zetia 10 mg, Oral, At Bedtime Allergies (1) ActiveReaction No Known AllergiesNone Documented Jackeline Dawn, BirdieD, MPH Extracted from: Title: Progress/SOAP Author: JODY, Date: 04/22/16 Note DOMINGA BISHOP Assessment/Plan Unilateral primary osteoarthritis, right kneeM17.11, Unilateral primary osteoarthritis, right kneeM17.11 1. SNF on discharge 2. OK for discharge once insurance approved 3. Strict use of the TUBS and Prone hangs on discharge, patient had large flexion contracture pre op Extracted from: Title: Ortho addendum Author: JODY, Date: 04/21/16 DOMINGA BISHOP Discharge Plan Discharge: SNF Procedure: Right TKA Complications: None DVT Prophylaxis: Resume home Plavix and ASA WB Status: WBAT Therapy goals: Hospital ROM Continue Shahrzad at home all times when not performing PT/HEP TID Prone Hangs, patient shown how to perform CPM machine 0-110 Goal- Knee flexion 110 degrees LINO F/U in clinic 2-3 weeks Discharge Instructions: 1)Elevate the knee and the entire lower extremity for as much as possible for 6 weeks and use ice liberally for 30 minutes 3-4 times a day. 2)Patient may shower on the 3rd day after surgery, but must keep the wound or dressing completely dry until saundra are removed. The patient should not take any soaking baths until 1 month after surgery. 3) Patient may bear as much weight as tolerated on the affected extremity. TUBS (passive exertion) exercises for 30 minutes TID are effective initially after surgery, but after the 1st week, the patient should progress to prone hangs to help with knee straightening postoperatively. 4) Patient will be on blood thinner for 4 to 6 weeks after surgery. The blood thinner may vary for each patient. 5) You may remove the MARIANGEL day after surgery and leave the incision uncovered if it is completely dry. PLEASE DO NOT REMOVE MESH PRINIO DRESSING. 6) An MARIANGEL wrap can be used to cover the wound to maintain compression and decrease swelling. 7) Call for wound drainage that is present beyond 7 days after surgery. 9) Motion is more important than strength or walking distance during the first 6 weeks after surgery. 10) Gabapentin 300 mg tabs,Oxycodone 5mg, Tramadol 59mg tabstabs will be used for postoperative pain control and should be weaned as the patient can tolerate . 9) Motion is more important than strength or walking distance during the first 6 weeks after surgery. 10) Gabapentin 300 mg tabs,Oxycodone 5mg, Tramadol 59mg tabstabs will be used for postoperative pain control and should be weaned as the patient can tolerate . Hospital Discharge Instructions Patient EducationLex_Dr. Mcghee TKA Discharge Instructions (Custom) Total Knee Replacement Total Knee Replacement, Care After
--- OUTSIDE RECORDS SUMMARY | 2016-11-22 19:24 | External Medical Summary Rpt ---
Author Author CHELY [facility] Organization [facility] Address Unknown Phone Unavailable Care Team Providers Care Tube Fitter Name Role Phone NIKKI, (REF) PCP [phone] Encounter CHELY WEST [id number] Date(s): 04/02/16 - 04/22/16 [facility] [address] [place] [address]- Discharge Diagnosis: Osteoarthritis Discharge Disposition: IP Self [...] (04/15/16 1:18 10:16 AM) PM) Height Entry [place] Format (04/21/16 (04/15/16 1:18 10:16 AM) PM) Height/Lengt 75.5 Inch 75.5 Inch h AUSTRIAN (04/21/16 (04/15/16 1:18 10:16 AM) PM) CLINICALHEIG 191.77 cm 191.77 cm HT (04/21/16 (04/15/16 1:18 10:16 AM) PM) Weight Standing Standing Source scale scale (04/21/16 (04/15/16 1:18 10:16 AM) PM) Weight Entry [place] Format (04/21/16 (04/15/16 1:18 10:16 AM) PM) Weight 211 lb 216 lb Thai lb (04/21/16 (04/15/16 1:18 10:16 AM) PM) CLINICALWEIG 95.91 kg 98.18 kg HT (04/21/16 (04/15/16 1:18 10:16 AM) PM) Body Surface 2.26 m2 2.28 m2 Area (BSA) (04/21/16 (04/15/16 1:18 10:16 AM) PM) Body Mass 26.1 kg/m2 26.7 kg/m2 Index *HI*(04/21/16 *HI*(04/15/16 [19.0-24.0 10:16 AM) 1:18 PM) kg/m2] [place] Body 85 kg 85 kg Weight (04/21/16 [...] release 15 mg = 1 Tab, Oral, [id number] multivitamin 1 Tab, Oral, Daily NexIUM 40 [...] Author: JACKELINE BROWN, Date: 04/22/16 Home Medications [facility] verified patient's allergies and home medication [...] 1,000 mg = 2 Tab, PRN, Oral, [id number] B-12 500 mcg oral tablet 500 mcg [...]
--- OUTSIDE RECORDS SUMMARY | 2016-11-22 19:25 | External Medical Summary Rpt ---
Author Author CHELY [facility] Organization [facility] Address Unknown Phone Unavailable Care Team Providers Care Knowledge Management Advisor Name Role Phone NIKKI, (REF) PCP [phone] Encounter CHELY [facility] [id number] Date(s): 05/22/16 - 05/27/16 [facility] [address] [place] [address]- [phone] Discharge Disposition: Inpatient Rehabilatation Facility Attending Physician: JOCE MCGHEE MD-ORAdalberto Admitting Physician: JOCE MCGHEE MD-ORT Referring Physician: JOCE MCGHEE MD-ORT Reason for Visit STIFFNESS OF RIGHT KNEE, NOT ELSEWHERE CLASSIFIED Vital Signs Most recent 1 2 3 to oldest [Reference Range]: Temperature Oral Axillary Axillary (05/26/16 Source (05/27/16 7:42 AM) (05/27/16 2:00 AM) 10:00 PM) Temperature Fahrenheit Fahrenheit Fahrenheit Mode (05/27/16 7:42 AM) (05/27/16 2:00 AM) (05/26/16 10:00 PM) Temperature, 97.7 Deg F 97.3 Deg F 97.4 Deg F Fahrenheit (05/27/16 7:42 AM) (05/27/16 2:00 AM) (05/26/16 10:00 [96.8-99.7 PM) Deg F] Clinical 36.5 Deg C 36.3 Deg C 36.3 Deg C Temperature, (05/27/16 7:42 AM) (05/27/16 2:00 AM) (05/26/16 10:00 C PM) Pulse Method Pulse Oximetry Pulse Oximetry Pulse Oximetry (05/26/16 4:20 PM) (05/26/16 12:43 (05/23/16 12:40 PM) PM) Pulse Source Radial, Right Radial, Left (05/26/16 12:43 (05/23/16 12:40 PM) PM) Pulse Rhythm Regular Regular (05/26/16 Regular (05/23/16 (05/26/16 4:20 PM) 12:43 PM) 12:40 PM) Heart Rate, 93 bpm 83 bpm 83 bpm Apical (05/27/16 8:39 AM) (05/26/16 8:24 PM) (05/26/16 8:42 AM) [60-100 bpm] Peripheral 91 bpm (05/26/16 60 bpm (05/23/16 Pulse Rate 12:43 PM) 12:40 PM) [60-100 bpm] Heart Rate 93 bpm 76 bpm 82 bpm (05/26/16 Monitored (05/27/16 7:42 AM) (05/27/16 2:00 AM) 10:00 PM) [60-100 bpm] Respiratory 16 Breaths/Min 16 Breaths/Min 16 Breaths/Min Rate [14-20 (05/27/16 7:42 AM) (05/27/16 2:00 AM) (05/26/16 10:00 Breaths/Min] PM) Blood Arm, right upper Arm, left upper Arm, right upper Pressure (05/26/16 4:20 PM) (05/26/16 12:43 (05/23/16 12:40 Location PM) PM) Blood Non-Invasive BP Non-Invasive BP Non-Invasive BP Pressure Device (05/26/16 Device (05/26/16 Device (05/23/16 Source 4:20 PM) 12:43 PM) 12:40 PM) Blood Sitting Side, Left Side, Right Pressure (05/26/16 4:20 PM) (05/26/16 12:43 (05/23/16 12:40 Position PM) PM) Blood 144/90 mmHg 136/82 mmHg 136/78 mmHg Pressure *HI* (05/27/16 2:00 AM) (05/26/16 10:00 [90-140/60-9 (05/27/16 7:42 AM) PM) 0 mmHg] Mean 108 104 96 Arterial (05/26/16 5:15 PM) (05/26/16 5:00 PM) (05/26/16 4:45 PM) Pressure (MAP)-BMDI Oxygen 94 % 100 % 100 % (05/26/16 Saturation (05/27/16 7:42 AM) (05/27/16 2:00 AM) 10:00 PM) [94-100 %] Oxygen Room air Room air (05/26/16 Nasal cannula Therapy Mode (05/27/16 2:00 AM) 10:00 PM) (05/26/16 7:04 PM) Oxygen Flow 2 Liter/Min 2 Liter/Min 2 Liter/Min Rate (05/26/16 6:00 PM) (05/26/16 5:15 PM) (05/26/16 5:00 PM) Height Stated Stated (05/23/16 Source (05/25/16 4:00 AM) 12:40 PM) Height Entry [place] (05/23/16 Format (05/25/16 4:00 AM) 12:40 PM) Height/Lengt 6 ft 6 ft (05/23/16 h, [place] (05/25/16 4:00 AM) 12:40 PM) (ft) Height/Lengt 4 Inch 4 Inch (05/23/16 h [place] (05/25/16 4:00 AM) 12:40 PM) CLINICALHEIG 193.04 cm 193.04 cm HT (05/25/16 4:00 AM) (05/23/16 12:40 PM) Weight Standing scale Source (05/23/16 12:40 PM) Weight Entry [place] (05/23/16 Format 12:40 PM) Weight 211 lb (05/23/16 Serbian lb 12:40 PM) CLINICALWEIG 95.91 kg (05/23/16 HT 12:40 PM) Body Surface 2.27 m2 (05/23/16 Area (BSA) 12:40 PM) Body Mass 25.7 kg/m2 Index *HI*(05/23/16 [19.0-24.0 12:40 PM) kg/m2] Routine Bed scale Weight (05/25/16 4:00 AM) Source Routine Metric Weight Entry (05/25/16 4:00 AM) Format Routine 96.4 kg Weight, (05/25/16 4:00 AM) Kilograms Routine 96.4 kg Weight (05/25/16 4:00 AM) Calculation Body Surface 2.27 m2 Area (BSA), (05/25/16 4:00 AM) Routine [facility] Body 86 kg (05/23/16 Weight 12:40 PM) Problem List Condition Effective Status Health [...] tablet)1 Tab, Oral, Every Day, Refills: 0 clopidogrel (Plavix 75 mg [...] 2 Tab, Oral, At Bedtime, Refills: 0 enoxaparin (enoxaparin 40 mg/0.4 mL injectable solution)0.4 mL, SubCutaneous , Every Day, 14 Day(s), Refills: 0Ordering provider: LUIZ RODRIGUEZ DO esomeprazole (NexIUM 40 mg oral delayed release capsule)1 Cap, Oral, Every Day, Refills: 0 ezetimibe (Zetia) 10 mg, Oral, At Bedtime, Refills: 0 ferrous sulfate (ferrous sulfate 325 mg (65 mg elemental iron) oral delayed release tablet)1 Tab, Oral, Two Times A Day, Refills: 0 lisinopril (lisinopril 40 mg oral tablet) 0.5 Tab, Oral, Two Times A Day, Refills: 0 lovastatin (lovastatin 40 mg oral tablet) 1 Tab, Oral, At Bedtime, Refills: 0 metoprolol (Metoprolol Tartrate 25 mg oral tablet)0.5 Tab, Oral, Two Times A Day, Refills: 0 multivitamin 1 Tab, Oral, Every Day, Refills: 0 oxyCODONE (oxyCODONE 5 mg oral capsule)1 Cap, Oral, Every 6 Hours, 5 Day(s), As Needed, as needed for pain, Refills: 0Ordering provider: LUIZ RODRIGUEZ DO oxyCODONE (oxyCODONE 5 mg oral tablet)1 Tab, Oral, Every 4 Hours, As Needed, Pain (Moderate 4-6), Refills: 0 risperiDONE (RisperDAL 0.5 mg oral tablet) 1 Tab, Oral, At Bedtime, Refills: 0 senna8.6 mg, Oral, At Bedtime, As Needed, Constipation, Refills: 0 sodium biphosphate-sodium phosphate (Fleet Enema)133 mL, Rectal, One Time Order, As Needed, Constipation, Refills: 0 Results GENERAL CHEMISTRY Most recent 1 2 3 to oldest [Reference Range]: Sodium Level 138 mmol/L 140 mmol/L 142 mmol/L [136-145 (05/27/16 4:34 AM) (05/26/16 4:03 AM) (05/25/16 2:48 AM) mmol/L] Potassium 4.1 mmol/L 3.8 mmol/L 3.9 mmol/L Level (05/27/16 4:34 AM) (05/26/16 4:03 AM) (05/25/16 2:48 AM) [3.5-5.1 mmol/L] Chloride 105 mmol/L 108 mmol/L 109 mmol/L Level (05/27/16 4:34 AM) *HI*(05/26/16 4:03 *HI*(05/25/16 2:48 [98-107 AM) AM) mmol/L] Carbon 23 mmol/L 26 mmol/L 24 mmol/L Dioxide (05/27/16 4:34 AM) (05/26/16 4:03 AM) (05/25/16 2:48 AM) Level [21-32 mmol/L] Anion Gap 14 (05/27/16 4:34 10 (05/26/16 4:03 13 (05/25/16 2:48 [9-20] AM) AM) AM) Glucose 141 mg/dL 89 mg/dL (05/26/16 95 mg/dL (05/25/16 Level *HI*(05/27/16 4:34 4:03 AM) 2:48 AM) [74-106 AM) mg/dL] Blood Urea 28 mg/dL 32 mg/dL 28 mg/dL Nitrogen *HI*(05/27/16 4:34 *HI*(05/26/16 4:03 *HI*(05/25/16 2:48 [7-18 mg/dL] AM) AM) AM) Creatinine 0.96 mg/dL 1.13 mg/dL 1.17 mg/dL Level (05/27/16 4:34 AM) (05/26/16 4:03 AM) (05/25/16 2:48 AM) [0.80-1.30 mg/dL] eGFR 93 mL/min/1.73m2 77 mL/min/1.73m2 74 mL/min/1.73m2 [>=60 (05/27/16 4:34 AM) (05/26/16 4:03 AM) (05/25/16 2:48 AM) mL/min/1.73m 2] eGFR 77 mL/min/1.73m2 64 mL/min/1.73m2 61 mL/min/1.73m2 NonAfrican (05/27/16 4:34 AM) (05/26/16 4:03 AM) (05/25/16 2:48 AM) [>=60 mL/min/1.73m 2] Bun/Creatini 29.2 *HI*(05/27/16 28.3 *HI*(05/26/16 23.9 *HI*(05/25/16 ne 4:34 AM) 4:03 AM) 2:48 AM) [8.0-20.0] (05/27/16 4:34 AM) (05/26/16 4:03 AM) (05/25/16 2:48 AM) Calcium 8.0 mg/dL 8.1 mg/dL 8.2 mg/dL Level *LOW*(05/27/16 *LOW*(05/26/16 *LOW*(05/25/16 [8.5-10.1 4:34 AM) 4:03 AM) 2:48 AM) mg/dL] HEMATOLOGY Most recent 1 2 3 to oldest [Reference Range]: WBC 3.9 K/uL (05/27/16 4.3 K/uL (05/26/16 3.5 K/uL [3.9-10.0 4:34 AM) 4:03 AM) *LOW*(05/24/16 K/uL] 4:35 AM) RBC 3.70 Million/uL 3.70 Million/uL 3.57 Million/uL [4.63-6.08 *LOW*(05/27/16 *LOW*(05/26/16 *LOW*(05/24/16 Million/uL] 4:34 AM) 4:03 AM) 4:35 AM) Hgb 10.9 Gram/dL 11.2 Gram/dL 10.9 Gram/dL [13.7-17.5 *LOW*(05/27/16 *LOW*(05/26/16 *LOW*(05/26/16 Gram/dL] 4:34 AM) 4:41 PM) 4:03 AM) Hct 34.4 % 35.5 % 34.3 % [40.1-51.0 *LOW*(05/27/16 *LOW*(05/26/16 *LOW*(05/26/16 %] 4:34 AM) 4:41 PM) 4:03 AM) MCV 93.0 fL (05/27/16 92.7 fL (05/26/16 94.4 fL (05/24/16 [79.0-94.8 4:34 AM) 4:03 AM) 4:35 AM) fL] MCH 29.5 pg (05/27/16 29.5 pg (05/26/16 29.1 pg (05/24/16 [25.6-32.2 4:34 AM) 4:03 AM) 4:35 AM) pg] MCHC 31.7 Gram/dL 31.8 Gram/dL 30.9 Gram/dL [32.2-36.5 *LOW*(05/27/16 *LOW*(05/26/16 *LOW*(05/24/16 Gram/dL] 4:34 AM) 4:03 AM) 4:35 AM) Platelet 182 K/uL (05/27/16 191 K/uL (05/26/16 200 K/uL (05/24/16 Count 4:34 AM) 4:03 AM) 4:35 AM) [163-369 K/uL] MPV 9.4 fL (05/27/16 9.6 fL (05/26/16 9.4 fL (05/24/16 [9.4-12.4 4:34 AM) 4:03 AM) 4:35 AM) fL] RDW 16.5 % 16.3 % 17.2 % [11.6-14.4 *HI*(05/27/16 4:34 *HI*(05/26/16 4:03 *HI*(05/24/16 4:35 %] AM) AM) AM) Neut % 77.1 % 63.3 % (05/26/16 59.0 % (05/24/16 [34.0-71.0 *HI*(05/27/16 4:34 4:03 AM) 4:35 AM) %] AM) Neut # 3.03 K/uL 2.72 K/uL 2.09 K/uL [1.56-6.13 (05/27/16 4:34 AM) (05/26/16 4:03 AM) (05/24/16 4:35 AM) K/uL] Lymph % 15.8 % 25.2 % (05/26/16 30.8 % (05/24/16 [19.0-53.0 *LOW*(05/27/16 4:03 AM) 4:35 AM) %] 4:34 AM) Lymph # 0.62 K/uL 1.08 K/uL 1.09 K/uL [1.18-3.74 *LOW*(05/27/16 *LOW*(05/26/16 *LOW*(05/24/16 K/uL] 4:34 AM) 4:03 AM) 4:35 AM) [place] % 7.1 % (05/27/16 9.1 % (05/26/16 8.2 % (05/24/16 [4.7-12.5 %] 4:34 AM) 4:03 AM) 4:35 AM) [place] # 0.28 K/uL 0.39 K/uL 0.29 K/uL [0.24-0.82 (05/27/16 4:34 AM) (05/26/16 4:03 AM) (05/24/16 4:35 AM) K/uL] Eos % 0.0 % 1.9 % (05/26/16 1.4 % (05/24/16 [1.0-7.0 %] *LOW*(05/27/16 4:03 AM) 4:35 AM) 4:34 AM) Eos # 0.00 K/uL 0.08 K/uL 0.05 K/uL [0.04-0.54 *LOW*(05/27/16 (05/26/16 4:03 AM) (05/24/16 4:35 AM) K/uL] 4:34 AM) Baso % 0.0 % (05/27/16 0.5 % (05/26/16 0.6 % (05/24/16 [0.0-1.0 %] 4:34 AM) 4:03 AM) 4:35 AM) Baso # 0.00 K/uL 0.02 K/uL 0.02 K/uL [0.01-0.08 *LOW*(05/27/16 (05/26/16 4:03 AM) (05/24/16 4:35 AM) K/uL] 4:34 AM) Slide Review No (05/27/16 4:34 No (05/26/16 4:03 No (05/24/16 4:35 AM) AM) AM) Immunizations No data available for this section Procedures Procedure Date Related Body Site Diagnosis R TKR Social History Social History Response Type Smoking Status Never smoker; Second Hand Smoke Exposure No Assessment and Plan Extracted from: Title: Ortho Author: ULI LIM, Date: 05/27/16 PA-C Assessment/Plan POD #1 s/p ORIF R Patella Fx, periprosthetic--Patient's pain is well controlled. cast c/d/i. Plan for d/c to facility today, please see d/c ortho addendum for instructions. Extracted from: Title: ALISE Robyn Author: LUIZ RODRIGUEZ Date: 05/26/16 Note A, DO Basic Information says he doing ok, no complaitns of pain today, cast removed No events overnight Review of SystemsConstitutional: No fever, No chills.Eye: No recent visual problem, No icterus, No blurring, No visual disturbances.Ear/Nose/Mouth/Throat: No decreased hearing, No sore throat.Respiratory: No shortness of breath, No cough.Cardiovascular: No chest pain, No palpitations, No syncope.Gastrointestinal: No nausea, No vomiting, No hematemesis.Genitourinary: No dysuria, No hematuria.Hematology/Lymphatics: No bleeding tendency, No swollen lymph glands.Endocrine: No cold intolerance, No heat intolerance.Musculoskeletal: No joint pain, No muscle pain.Integumentary: No rash, No pruritus, No breakdown.Neurologic: No confusion, No numbness.Psychiatric: No depression, Not delusional. Integumentary: No rash, No pruritus, No breakdown. Neurologic: No confusion, No numbness. Psychiatric: No depression, Not delusional. Health StatusAllergies:Allergic Reactions (Selected)No Known Allergies,Allergies (1) ActiveReactionNo Known AllergiesNone DocumentedCurrent medications: (Selected)Inpatient MedicationsOrderedBenadryl: 12.5 mg, Oral, At Bedtime, PRN: SleepBenadryl: 25 mg, Oral, Q4H, PRN: ItchingCeleBREX: 200 mg, Oral, [id number]: 100 mg, Oral, BIDDextrose 5% in Lactated Ringers Injection 1,000 mL: 75 mL/Hr, IntraVENousDulcolax Laxative: 10 mg, Rectal, 1-Time, PRN: ConstipationFleet Enema: 133 mL, Rectal, 1-Time, PRN: ConstipationLopressor: 12.5 mg, Oral, BIDLovenox: 30 mg, SubCutaneous, [id number]: 40 mg, Oral, DailyRisperDAL: 0.5 mg, Oral, At BedtimeSenokot S: 2 Tab, Oral, At BedtimeTylenol: 1,000 mg, Oral, [id number] D3: 2,000 Units, Oral, DailyZetia: 10 mg, Oral, At BedtimeZofran: 4 mg, IV Push, Q8H, PRN: NauseaamLODIPine: 10 mg, Oral, Dailyferrous sulfate: 325 mg, Oral, BIDgabapentin: 300 mg, Oral, At Bedtimelovastatin: 40 mg, Oral, At Bedtimemultivitamin: 1 Tab, Oral, Dailynaloxone: 0.1 mg, IV Push, Q5Min, PRN: OversedationoxyCODONE: 10 mg, Oral, Q4H, PRN: Pain (Severe 7-10)oxyCODONE: 5 mg, Oral, Q4H, PRN: Pain (Moderate 4-6)senna: 8.6 mg, Oral, At Bedtime, PRN: ConstipationtraMADol: 100 mg, Oral, Q6H, PRN: Pain (Mild 1-3)Documented MedicationsDocumentedBenadryl 25 mg oral tablet: 0.5 Tab, Oral, At Bedtime, PRN: Insomnia, 0 Refill(s)Colace 100 mg oral capsule: 1 Cap, Oral, BID, 0 Refill(s)Fleet Enema: 133 mL, Rectal, 1-Time, PRN: Constipation, 0 Refill(s)Metoprolol Tartrate 25 mg oral tablet: 0.5 Tab, Oral, BID, 30 Tab, 0 Refill(s)NexIUM 40 mg oral delayed release capsule: 1 Cap, Oral, Daily, 30 Cap, 0 Refill(s)Plavix 75 mg oral tablet: 1 Tab, Oral, Daily, 30 Tab, 0 Refill(s)RisperDAL 0.5 mg oral tablet: 1 Tab, Oral, At Bedtime, 0 Refill(s)Senokot S: 2 Tab, Oral, At Bedtime, 0 Refill(s)Tylenol 500 mg oral tablet: 2 Tab, Oral, Q6H, PRN: as needed for pain, 0 Refill(s)Vitamin B-12 500 mcg oral tablet: 1 Tab, Oral, Daily, 30 Tab, 0 Refill(s)Vitamin D3 2000 intl units oral tablet: 1 Tab, Oral, Daily, 0 Refill(s)Zetia: 10 mg, Oral, At Bedtime, 0 Refill(s)amLODIPine 10 mg oral tablet: 1 Tab, Oral, Daily, 30 Tab, 0 Refill(s)aspirin 81 mg oral tablet: 1 Tab, Oral, Daily, 30 Tab, 0 Refill(s)ferrous sulfate 325 mg (65 mg elemental iron) oral delayed release tablet: 1 Tab, Oral, BID, 0 Refill(s)lisinopril 40 mg oral tablet: 0.5 Tab, Oral, BID, 0 Refill(s)lovastatin 40 mg oral tablet: 1 Tab, Oral, At Bedtime, 30 Tab, 0 Refill(s)multivitamin: 1 Tab, Oral, Daily, 0 Refill(s)oxyCODONE 5 mg oral tablet: 1 Tab, Oral, Q4H, PRN: Pain (Moderate 4-6), 0 Refill(s)senna: 8.6 mg, Oral, At Bedtime, PRN: Constipation, 0 Refill(s),Medications (26) ActiveScheduled: (15)acetaminophen 500 mg tab 1,000 mg 2 Tab, Oral, [id number] 10 mg tab 10 mg 1 Tab, Oral, Dailycelecoxib 200 mg cap 200 mg 1 Cap, Oral, Q51PYltsfbgyoscdxxbnef 1,000 int unit tab 2,000 Units 2 Tab, Oral, Dailydocusate sodium 100 mg cap 100 mg 1 Cap, Oral, BIDenoxaparin 30 mg/0.3 ml inj 30 mg 0.3 mL, SubCutaneous, T46Fjhzqnvxxm 10 mg tab 10 mg 1 Tab, Oral, At Bedtimeferrous sulfate 325 mg EC tab 325 mg 1 Tab, Oral, BIDgabapentin 300 mg cap 300 mg 1 Cap, Oral, At Bedtimelovastatin 20 mg tab 40 mg 2 Tab, Oral, At Bedtimemetoprolol tartrate 25 mg tab 12.5 mg 0.5 Tab, Oral, BIDmultiple vitamin (Thera) tab 1 Tab, Oral, Dailypantoprazole EC 40 mg tab 40 mg 1 Tab, Oral, DailyrisperiDONE 0.25 mg tab 0.5 mg 2 Tab, Oral, At Bedtimesenna/docusate 8.6/50 mg tab 2 Tab, Oral, At BedtimeContinuous: (1)D5/LR 1,000 mL 1,000 mL, IntraVENous, 75 mL/HrPRN: (10)bisacodyl 10 mg supp 10 mg 1 Supp, Rectal, 1-TimediphenhydrAMINE 25 mg tab 25 mg 1 Tab, Oral, E9UjtlrhigtzlBYGIF 25 mg tab 12.5 mg 0.5 Tab, Oral, At BedtimeNa biphos-Na phos 19 g-7 g enema 133 mL, Rectal, 1-Timenaloxone 0.4 mg/1 mL inj 0.1 mg 0.25 mL, IV Push, V0Bapywhyddkbysl 4 mg/2 mL inj 4 mg 2 mL, IV Push, A7AmrwBFMXRM 5 mg tab 5 mg 1 Tab, Oral, U6UsccWEURLZ 5 mg tab 10 mg 2 Tab, Oral, R8Hdldra 8.6 mg tab 8.6 mg 1 Tab, Oral, At BedtimetraMADol 50 mg tab 100 mg 2 Tab, Oral, B8QOacqrtb list:MedicalAnemia / SNOMED CT 358875626 / ConfirmedCAD (coronary artery disease) / SNOMED CT 8179499568 / ConfirmedKnee pain, right / SNOMED CT 705681499 / ConfirmedCharcot's joint of foot (right) / SNOMED CT 1302611645 / ConfirmedChronic atrial fibrillation / SNOMED CT 9453835400 / ConfirmedAcid reflux / SNOMED CT 9872598605 / ConfirmedHTN (hypertension) / SNOMED CT 6071806734 / ConfirmedElevated lipids / SNOMED CT 029818068 / ConfirmedMental retardation / SNOMED CT 6804264876 / ConfirmedOsteoarthritis / SNOMED CT 1072953691 / Confirmedright knee Osteoarthritis status post Right knee ArthoplastyHx: TIA (transient ischemic attack) / SNOMED CT 248954841 / Confirmed,Active Problems (11)Acid reflux Anemia CAD (coronary artery disease) Charcot's joint of foot (right) Chronic atrial fibrillation Elevated lipids HTN (hypertension) Hx: TIA (transient ischemic attack) Knee pain, right Mental retardation Osteoarthritis Continuous: (1) D5/LR 1,000 mL 1,000 mL, IntraVENous, 75 mL/Hr PRN: (10) bisacodyl 10 mg supp 10 mg 1 Supp, Rectal, 1-Time diphenhydrAMINE 25 mg tab 25 mg 1 Tab, Oral, Q4H diphenhydrAMINE 25 mg tab 12.5 mg 0.5 Tab, Oral, At Bedtime Na biphos-Na phos 19 g-7 g enema 133 mL, Rectal, 1-Time naloxone 0.4 mg/1 mL inj 0.1 mg 0.25 mL, IV Push, Q5Min ondansetron 4 mg/2 mL inj 4 mg 2 mL, IV Push, Q8H oxyCODONE 5 mg tab 5 mg 1 Tab, Oral, Q4H oxyCODONE 5 mg tab 10 mg 2 Tab, Oral, Q4H senna 8.6 mg tab 8.6 mg 1 Tab, Oral, At Bedtime traMADol 50 mg tab 100 mg 2 Tab, Oral, Q6H Problem list: Medical Anemia / SNOMED CT 549454239 / Confirmed CAD (coronary artery disease) / SNOMED CT 5255816955 / Confirmed Knee pain, right / SNOMED CT 280568886 / Confirmed Charcot's joint of foot (right) / SNOMED CT 8182139759 / Confirmed Chronic atrial fibrillation / SNOMED CT 3960488101 / Confirmed Acid reflux / SNOMED CT 3940640416 / Confirmed HTN (hypertension) / SNOMED CT 0911393010 / Confirmed Elevated lipids / SNOMED CT 914221741 / Confirmed Mental retardation / SNOMED CT 5953074924 / Confirmed Osteoarthritis / SNOMED CT 1104113826 / Confirmed right knee Osteoarthritis status post Right knee Arthoplasty Hx: TIA (transient ischemic attack) / SNOMED CT 020023562 / Confirmed, Active Problems (11) Acid reflux Anemia CAD (coronary artery disease) Charcot's joint of foot (right) Chronic atrial fibrillation Elevated lipids HTN (hypertension) Hx: TIA (transient ischemic attack) Knee pain, right Mental retardation Osteoarthritis Physical ExaminationVS/MeasurementsVitals Signs (last 24 hrs) Last Charted Minimum MaximumTemp 97.5 (MAY 26 07:30)97.5 (MAY 26 07:30)97.6 (MAY 25 18:49)Apical HR 83 (MAY 26 08:42)83 (MAY 26 08:42)96 (MAY 25 21:19)Mon HR 83 (MAY 26 07:30)83 (MAY 26 07:30)96 (MAY 25 21:00)Resp Rate 18 (MAY 26 07:30)16 (MAY 25 18:49)18 (MAY 26 07:30)SBP 131 (MAY 26 07:30)116 (MAY 25 18:49)132 (MAY 25 21:00)DBP 76 (MAY 26 07:30)74 (MAY 25 18:49)82 (MAY 25 21:00)SpO2 97 (MAY 26 07:30)97 (MAY 26 07:30)100 (MAY 25 21:00)General: Alert and oriented, No acute distress.Eye: Extraocular movements are intact, Normal conjunctiva. Sclera: Not icteric.HENT: Normocephalic, Normal hearing, Oral mucosa is moist.Neck: Supple, Non-tender, No jugular venous distention, No lymphadenopathy.Respiratory: Lungs are clear to auscultation, Respirations are non-labored, Breath sounds are equal, Symmetrical chest wall expansion.Cardiovascular: Normal rate, Regular rhythm, No murmur, No gallop, Good pulses equal in all extremities, No edema.Gastrointestinal: Soft, Non-tender, Non-distended, Normal bowel sounds, No organomegaly.Genitourinary: No costovertebral angle tenderness.Lymphatics: No lymphadenopathy neck, axilla, groin.Musculoskeletal: Normal strength, No tenderness, No swelling, cast off, knee chlorprep, good pulses.Integumentary: Warm, [place], Moist, No rash.Neurologic: Alert, Oriented, No focal deficits, Cranial Nerves II-XII are grossly intact.Psychiatric: Cooperative, Appropriate mood & affect, Normal judgment. Review / ManagementResults review:Labs (Last four charted values)WBC 4.3(MAY 26)L 3.5(MAY 15)HB L 10.9(MAY 17)L 11.1(MAY 16)L 10.4(MAY 15)L 10.6(MAY 14)HCT L 34.3(MAY 17)L 35.5(MAY 16)L 33.7(MAY 15)L 33.6(MAY 14)Plt 191(MAY 17)200(MAY 15)Na 140(MAY 17)142(MAY 16)H 148(MAY 15)145(MAY 14)K 3.8(MAY 17)3.9(MAY 16)4.0(MAY 15)3.8(MAY 14)Cl H 108(MAY 17)H 109(MAY 16)H 112(MAY 15)H 110(MAY 14)CO2 26(MAY 17)24(MAY 16)27(MAY 15)27(MAY 14)BUN H 32(MAY 17)H 28(MAY 16)H 30(MAY 15)H 27(MAY 14)Cr 1.13(MAY 17)1.17(MAY 16)1.04(MAY 15)1.09(MAY 14)Glu R 89(MAY 17)95(MAY 16)97(MAY 15)H 121(MAY 14)Ca L 8.1(MAY 26)L 8.2(MAY 16)L 8.4(MAY 15)8.6(MAY 14), MAY 26 04:03 140 | H 108 | H 32 / 89 3.8 | 26 | 1.13 \\ MAY 26 04:03 \\ L 10.9 / 4.3 191 / L 34.3 \\, Radiology Results (Last 48 hours)[id number] -- 05/23/2016 06:42CT Knee RT WO (05/25/2016 16:33) Result: CT SCAN RIGHT KNEE 05/25/2016 8:00 AM HISTORY: Abnormal x-ray, acute right knee pain.COMPARISON: None.PROCEDURE: Axial images were obtained through the knee by computedtomography. Sagittal and coronal reconstruction images were performed.This study was performed with techniques to keep radiation doses as lowas reasonably achievable, (ALARA). Individualized dose reductiontechniques using automated exposure control or adjustment of mA and/orkV according to the patient size were employed.FINDINGS: Status post total knee arthroplasty. Vascular calcificationsare present. There is a minimally displaced acute fracture through theposterior medial distal femoral metaphysis. There is a comminuted acutefracture through the patella. A joint effusion is present. Metallicartifact limits detail.IMPRESSION: Acute comminuted patellar fracture.Acute medial distal femur fracture. . Radiology Results (Last 48 hours) [id number] -- 05/23/2016 06:42 CT Knee RT WO (05/25/2016 16:33) Result: CT SCAN RIGHT KNEE 05/25/2016 8:00 AM HISTORY: Abnormal x- ray, acute right knee pain.COMPARISON: None.PROCEDURE: Axial images were obtained through the knee by computedtomography . Sagittal and coronal reconstruction images were performed.This study was performed with techniques to keep radiation doses as lowas reasonably achievable , (ALARA). Individualized dose reductiontechn iques using automated exposure control or adjustment of mA and/orkV according to the patient size were employed.FINDINGS: Status post total knee arthroplasty. Vascular calcificationsare present. There is a minimally displaced acute fracture through theposterior medial distal femoral metaphysis. There is a comminuted acutefracture through the patella. A joint effusion is present. Metallicartifact l imits detail.IMPRESSION: Acute comminuted patellar fracture.Acute medial distal femur fracture. . Impression and Planright knee manipulation under anesthesiaOrthopedic surgery following, will be discharged to inpatient rehabilitation on Thursday in [place] / june reevaluate after surgery todaypatella fracturefound on ct scan yesterdayfor ORIF today / ortho followingParoxysmal atrial fibrillationcontinue Lopressor twice a day, currently normal sinus rhythmNot on anticoagulation at homeBenign essential hypertensioncontinue metoprolol, hold lisinopril for nowcontrolledGERDContinue ProtonixDVT prophylaxis per orthopedic surgery, Lovenox twice a dayGI prophylaxis ProtonixFull code27 minutes spent evaluation. Discussed with medical power of immigration attorney, cousin.Discussed with RN.Disposition: ORIF today, june still dc to SNF tomorrow Benign essential hypertension continue metoprolol, hold lisinopril for now controlled GERD Continue Protonix DVT prophylaxis per orthopedic surgery, Lovenox twice a day GI prophylaxis Protonix Full code 27 minutes spent evaluation. Discussed with medical power of immigration attorney, cousin. Discussed with RN. Disposition: ORIF today, may still dc to SNF tomorrow Extracted from: Title: Ortho Author: ULI LIM, Date: 05/26/16 PA-C Assessment/Plan POD3 s/p Right knee manipulation after TKA stiffness-- Patella fracture-- plan for ORIF by Dr. Mcghee. Patient has been NPO after midnight. Extracted from: Title: [facility] Progress Author: PHOEBE RODRIGUEZESSA Date: 05/25/16 Note A, DO Basic Informationhas no cmplaints other than stiffness in his leg, says the apin is well controlled with medications No events overnight No events overnight Review of SystemsConstitutional: No fever, No chills.Eye: No recent visual problem, No icterus, No blurring, No visual disturbances.Ear/Nose/Mouth/Throat: No decreased hearing, No sore throat.Respiratory: No shortness of breath, No cough.Cardiovascular: No chest pain, No palpitations, No syncope.Gastrointestinal: No nausea, No vomiting, No hematemesis.Genitourinary: No dysuria, No hematuria.Hematology/Lymphatics: No bleeding tendency, No swollen lymph glands.Endocrine: No cold intolerance, No heat intolerance.Musculoskeletal: No joint pain, No muscle pain.Integumentary: No rash, No pruritus, No breakdown.Neurologic: No confusion, No numbness.Psychiatric: No depression, Not delusional. Integumentary: No rash, No pruritus, No breakdown. Neurologic: No confusion, No numbness. Psychiatric: No depression, Not delusional. Health StatusAllergies:Allergic Reactions (Selected)No Known Allergies,Allergies (1) ActiveReactionNo Known AllergiesNone DocumentedCurrent medications: (Selected)Inpatient MedicationsOrderedBenadryl: 12.5 mg, Oral, At Bedtime, PRN: SleepBenadryl: 25 mg, Oral, Q4H, PRN: ItchingCeleBREX: 200 mg, Oral, X06VKzfRpgnyh: 100 mg, Oral, BIDDextrose 5% in Lactated Ringers Injection 1,000 mL: 75 mL/Hr, IntraVENousDulcolax Laxative: 10 mg, Rectal, 1-Time, PRN: ConstipationFleet Enema: 133 mL, Rectal, 1-Time, PRN: ConstipationLopressor: 12.5 mg, Oral, BIDLovenox: 30 mg, SubCutaneous, D30MAjxplkzr: 40 mg, Oral, DailyRisperDAL: 0.5 mg, Oral, At BedtimeSenokot S: 2 Tab, Oral, At BedtimeTylenol: 1,000 mg, Oral, I5VZkwRiivtkj D3: 2,000 Units, Oral, DailyZetia: 10 mg, Oral, At BedtimeZofran: 4 mg, IV Push, Q8H, PRN: NauseaamLODIPine: 10 mg, Oral, Dailyferrous sulfate: 325 mg, Oral, BIDgabapentin: 300 mg, Oral, At Bedtimelovastatin: 40 mg, Oral, At Bedtimemultivitamin: 1 Tab, Oral, Dailynaloxone: 0.1 mg, IV Push, Q5Min, PRN: OversedationoxyCODONE: 10 mg, Oral, Q4H, PRN: Pain (Severe 7-10)oxyCODONE: 5 mg, Oral, Q4H, PRN: Pain (Moderate 4-6)senna: 8.6 mg, Oral, At Bedtime, PRN: ConstipationtraMADol: 100 mg, Oral, Q6H, PRN: Pain (Mild 1-3)Documented MedicationsDocumentedBenadryl 25 mg oral tablet: 0.5 Tab, Oral, At Bedtime, PRN: Insomnia, 0 Refill(s)Colace 100 mg oral capsule: 1 Cap, Oral, BID, 0 Refill(s)Fleet Enema: 133 mL, Rectal, 1-Time, PRN: Constipation, 0 Refill(s)Metoprolol Tartrate 25 mg oral tablet: 0.5 Tab, Oral, BID, 30 Tab, 0 Refill(s)NexIUM 40 mg oral delayed release capsule: 1 Cap, Oral, Daily, 30 Cap, 0 Refill(s)Plavix 75 mg oral tablet: 1 Tab, Oral, Daily, 30 Tab, 0 Refill(s)RisperDAL 0.5 mg oral tablet: 1 Tab, Oral, At Bedtime, 0 Refill(s)Senokot S: 2 Tab, Oral, At Bedtime, 0 Refill(s)Tylenol 500 mg oral tablet: 2 Tab, Oral, Q6H, PRN: as needed for pain, 0 Refill(s)Vitamin B-12 500 mcg oral tablet: 1 Tab, Oral, Daily, 30 Tab, 0 Refill(s)Vitamin D3 2000 intl units oral tablet: 1 Tab, Oral, Daily, 0 Refill(s)Zetia: 10 mg, Oral, At Bedtime, 0 Refill(s)amLODIPine 10 mg oral tablet: 1 Tab, Oral, Daily, 30 Tab, 0 Refill(s)aspirin 81 mg oral tablet: 1 Tab, Oral, Daily, 30 Tab, 0 Refill(s)ferrous sulfate 325 mg (65 mg elemental iron) oral delayed release tablet: 1 Tab, Oral, BID, 0 Refill(s)lisinopril 40 mg oral tablet: 0.5 Tab, Oral, BID, 0 Refill(s)lovastatin 40 mg oral tablet: 1 Tab, Oral, At Bedtime, 30 Tab, 0 Refill(s)multivitamin: 1 Tab, Oral, Daily, 0 Refill(s)oxyCODONE 5 mg oral tablet: 1 Tab, Oral, Q4H, PRN: Pain (Moderate 4-6), 0 Refill(s)senna: 8.6 mg, Oral, At Bedtime, PRN: Constipation, 0 Refill(s),Medications (26) ActiveScheduled: (15)acetaminophen 500 mg tab 1,000 mg 2 Tab, Oral, O3KHvnegSXMBTizk 10 mg tab 10 mg 1 Tab, Oral, Dailycelecoxib 200 mg cap 200 mg 1 Cap, Oral, V84GBdaogrvksxftokwtbq 1,000 int unit tab 2,000 Units 2 Tab, Oral, Dailydocusate sodium 100 mg cap 100 mg 1 Cap, Oral, BIDenoxaparin 30 mg/0.3 ml inj 30 mg 0.3 mL, SubCutaneous, D17Mdjidsxoro 10 mg tab 10 mg 1 Tab, Oral, At Bedtimeferrous sulfate 325 mg EC tab 325 mg 1 Tab, Oral, BIDgabapentin 300 mg cap 300 mg 1 Cap, Oral, At Bedtimelovastatin 20 mg tab 40 mg 2 Tab, Oral, At Bedtimemetoprolol tartrate 25 mg tab 12.5 mg 0.5 Tab, Oral, BIDmultiple vitamin (Thera) tab 1 Tab, Oral, Dailypantoprazole EC 40 mg tab 40 mg 1 Tab, Oral, DailyrisperiDONE 0.25 mg tab 0.5 mg 2 Tab, Oral, At Bedtimesenna/docusate 8.6/50 mg tab 2 Tab, Oral, At BedtimeContinuous: (1)D5/LR 1,000 mL 1,000 mL, IntraVENous, 75 mL/HrPRN: (10)bisacodyl 10 mg supp 10 mg 1 Supp, Rectal, 1-TimediphenhydrAMINE 25 mg tab 25 mg 1 Tab, Oral, P0YmwizorhkcaHQNAU 25 mg tab 12.5 mg 0.5 Tab, Oral, At BedtimeNa biphos-Na phos 19 g-7 g enema 133 mL, Rectal, 1-Timenaloxone 0.4 mg/1 mL inj 0.1 mg 0.25 mL, IV Push, M0Nqcqibgrvxainy 4 mg/2 mL inj 4 mg 2 mL, IV Push, W5MuhvCOYCFG 5 mg tab 5 mg 1 Tab, Oral, Z8WraeWLMFPT 5 mg tab 10 mg 2 Tab, Oral, N5Vxphfg 8.6 mg tab 8.6 mg 1 Tab, Oral, At BedtimetraMADol 50 mg tab 100 mg 2 Tab, Oral, S5NYjpxivd list:MedicalAnemia / SNOMED CT 684993536 / ConfirmedCAD (coronary artery disease) / SNOMED CT 7499684376 / ConfirmedKnee pain, right / SNOMED CT 645010033 / ConfirmedCharcot's joint of foot (right) / SNOMED CT 4247482054 / ConfirmedChronic atrial fibrillation / SNOMED CT 9830047812 / ConfirmedAcid reflux / SNOMED CT 6800913542 / ConfirmedHTN (hypertension) / SNOMED CT 7853136097 / ConfirmedElevated lipids / SNOMED CT 762319353 / ConfirmedMental retardation / SNOMED CT 7630926429 / ConfirmedOsteoarthritis / SNOMED CT 8876959021 / Confirmedright knee Osteoarthritis status post Right knee ArthoplastyHx: TIA (transient ischemic attack) / SNOMED CT 609389892 / Confirmed,Active Problems (11)Acid reflux Anemia CAD (coronary artery disease) Charcot's joint of foot (right) Chronic atrial fibrillation Elevated lipids HTN (hypertension) Hx: TIA (transient ischemic attack) Knee pain, right Mental retardation Osteoarthritis Continuous: (1) D5/LR 1,000 mL 1,000 mL, IntraVENous, 75 mL/Hr PRN: (10) bisacodyl 10 mg supp 10 mg 1 Supp, Rectal, 1-Time diphenhydrAMINE 25 mg tab 25 mg 1 Tab, Oral, Q4H diphenhydrAMINE 25 mg tab 12.5 mg 0.5 Tab, Oral, At Bedtime Na biphos-Na phos 19 g-7 g enema 133 mL, Rectal, 1-Time naloxone 0.4 mg/1 mL inj 0.1 mg 0.25 mL, IV Push, Q5Min ondansetron 4 mg/2 mL inj 4 mg 2 mL, IV Push, Q8H oxyCODONE 5 mg tab 5 mg 1 Tab, Oral, Q4H oxyCODONE 5 mg tab 10 mg 2 Tab, Oral, Q4H senna 8.6 mg tab 8.6 mg 1 Tab, Oral, At Bedtime traMADol 50 mg tab 100 mg 2 Tab, Oral, Q6H Problem list: Medical Anemia / SNOMED CT 892710117 / Confirmed CAD (coronary artery disease) / SNOMED CT 5903528691 / Confirmed Knee pain, right / SNOMED CT 198901116 / Confirmed Charcot's joint of foot (right) / SNOMED CT 0585782798 / Confirmed Chronic atrial fibrillation / SNOMED CT 8547499774 / Confirmed Acid reflux / SNOMED CT 6914848087 / Confirmed HTN (hypertension) / SNOMED CT 4815413607 / Confirmed Elevated lipids / SNOMED CT 795771038 / Confirmed Mental retardation / SNOMED CT 8734698440 / Confirmed Osteoarthritis / SNOMED CT 5167030742 / Confirmed right knee Osteoarthritis status post Right knee Arthoplasty Hx: TIA (transient ischemic attack) / SNOMED CT 285135113 / Confirmed, Active Problems (11) Acid reflux Anemia CAD (coronary artery disease) Charcot's joint of foot (right) Chronic atrial fibrillation Elevated lipids HTN (hypertension) Hx: TIA (transient ischemic attack) Knee pain, right Mental retardation Osteoarthritis Physical ExaminationVS/MeasurementsVitals Signs (last 24 hrs) Last Charted Minimum MaximumTemp 97.4 (MAY 25 07:06)97.4 (MAY 25 07:06)98.0 (MAY 24 21:00)Apical HR 71 (MAY 25 08:46)71 (MAY 25 08:46)98 (MAY 24 21:51)Mon HR 87 (MAY 25 07:06)86 (MAY 25 00:00)98 (APR 15 21:00)Resp Rate 16 (MAY 25 07:06)16 (MAY 25 07:06)18 (MAY 24 15:00)SBP H 154 (MAY 25 07:06)138 (MAY 25 00:00)H 158 (MAY 24 15:00)DBP 89 (MAY 25 07:06)68 (MAY 24 15:00)89 (MAY 25 04:00)SpO2 99 (MAY 25 07:06)98 (MAY 24 21:00)99 (MAY 25 07:06)General: Alert and oriented, No acute distress.Eye: Extraocular movements are intact, Normal conjunctiva. Sclera: Not icteric.HENT: Normocephalic, Normal hearing, Oral mucosa is moist.Neck: Supple, Non-tender, No jugular venous distention, No lymphadenopathy.Respiratory: Lungs are clear to auscultation, Respirations are non-labored, Breath sounds are equal, Symmetrical chest wall expansion.Cardiovascular: Normal rate, Regular rhythm, No murmur, No gallop, Good pulses equal in all extremities, No edema.Gastrointestinal: Soft, Non-tender, Non-distended, Normal bowel sounds, No organomegaly.Genitourinary: No costovertebral angle tenderness.Lymphatics: No lymphadenopathy neck, axilla, groin.Musculoskeletal: Normal strength, No tenderness, No swelling, with right cast from above the knee to ankle, good pulses, wiggles toes.Integumentary: Warm, [place], Moist, No rash.Neurologic: Alert, Oriented, No focal deficits, Cranial Nerves II-XII are grossly intact.Psychiatric: Cooperative, Appropriate mood & affect, Normal judgment. Review / ManagementResults review:Labs (Last four charted values)WBC L 3.5(MAY 15)HB L 11.1(MAY 16)L 10.4(MAY 15)L 10.6(MAY 14)HCT L 35.5(MAY 16)L 33.7(MAY 15)L 33.6(MAY 14)Plt 200(MAY 15)Na 142(MAY 16)H 148(MAY 15)145(MAY 14)K 3.9(MAY 16)4.0(MAY 15)3.8(MAY 14)Cl H 109(MAY 16)H 112(MAY 15)H 110(MAY 14)CO2 24(MAY 16)27(MAY 15)27(MAY 14)BUN H 28(MAY 16)H 30(MAY 15)H 27(MAY 14)Cr 1.17(MAY 16)1.04(MAY 15)1.09(MAY 14)Glu R 95(MAY 16)97(MAY 15)H 121(MAY 14)Ca L 8.2(MAY 25)L 8.4(MAY 15)8.6(MAY 14), MAY 16 02:48 142 | H 109 | H 28 / 95 3.9 | 24 | 1.17 \\, Radiology Results (Last 48 hours)[id number] -- 05/23/2016 06:42CR Knee 1 or 2 Vws RT (05/23/2016 15:31) Result: Right kneeHISTORY: Right knee pain. Postoperative exam.FINDINGS:2 views of the right knee were obtained. The patient is status posttotal knee arthroplasty. Overlying cast limits the exam. There is anage-indeterminate inferior patellar fracture. The patella lies in asuperior location. There is a questionable fracture of the medialfemoral condyle.IMPRESSION:Postoperative and posttraumatic changes as above.Sarah, the patient's nurse, was notified of these findings at time ofdictation.Reviewed, interpreted, and dictated by Dr. Abdias MD.Transcribed by Tommy Martinez PA-C.I have personally viewed, interpreted and dictated the examination. Ihave read and agree with the above final transcribed report.CR Chest 1 Vw Portable (05/23/2016 18:54) Result: PORTABLE CHEST 05/23/2016 5:24 PM HISTORY: Atrial fibrillation.COMPARISON: None.FINDINGS: The heart is normal in size . The mediastinum isunremarkable . There is a right mid lung field nodule. There is nopneumothorax . The osseous structures are unremarkable . IMPRESSION: Nodular opacity as above. Follow-up to complete resolution recommended . Reviewed, interpreted, and dictated by Dr. Abdias M.D.Transcribed by RT Fawad (R) (R)I have personally viewed, interpreted and dictated the examination. Ihave read and agree with the above final transcribed report. . CR Chest 1 Vw Portable (05/23/2016 18:54) Result: PORTABLE CHEST 05/23/2016 5:24 PM HISTORY: Atrial fibrillation.COMPARISON: None.FINDINGS: The heart is normal in size . The mediastinum isunremarkable . There is a right mid lung field nodule. There is nopneumothorax . The osseous structures are unremarkable . IMPRESSION: Nodular opacity as above. Follow-up to complete resolution recommended . Reviewed, interpreted, and dictated by Dr. Abdias M.D.Transcribed by Annamaria Wren, RT (R) (R)I have personally viewed, interpreted and dictated the examination. Ihave read and agree with the above final transcribed report. . Impression and Planright knee manipulation under anesthesiaOrthopedic surgery following, [place] atrial fibrillationcontinue Lopressor twice a day, currently normal sinus rhythmNot on anticoagulation at homeBenign essential hypertensioncontinue metoprolol, hold lisinopril for nowcontrolledGERDContinue ProtonixDVT prophylaxis per orthopedic surgery, Lovenox twice a dayGI prophylaxis ProtonixFull code28 minutes spent evaluation. Discussed with medical power of immigration attorney, alejandro.Discussed with RN.Disposition: Awaiting rehabilitation placement, will likely be Thursday in [place]. ortho repeat xray knee today controlled GERD Continue Protonix DVT prophylaxis per orthopedic surgery, Lovenox twice a day GI prophylaxis Protonix Full code 28 minutes spent evaluation. Discussed with medical power of immigration attorneyalejandro. Discussed with RN. Disposition: Awaiting rehabilitation placement, will likely be Thursday in [place]. ortho repeat xray knee today Extracted from: Title: [facility] Author: LUIZ RODRIGUEZ Date: 05/24/16 Note A, DO Basic Informationdoing okay today, complains of some right leg pain and stiffness only from the castNo events overnight No events overnight Review of SystemsConstitutional: No fever, No chills.Eye: No recent visual problem, No icterus, No blurring, No visual disturbances.Ear/Nose/Mouth/Throat: No decreased hearing, No sore throat.Respiratory: No shortness of breath, No cough.Cardiovascular: No chest pain, No palpitations, No syncope.Gastrointestinal: No nausea, No vomiting, No hematemesis.Genitourinary: No dysuria, No hematuria.Hematology/Lymphatics: No bleeding tendency, No swollen lymph glands.Endocrine: No cold intolerance, No heat intolerance.Musculoskeletal: No joint pain, No muscle pain.Integumentary: No rash, No pruritus, No breakdown.Neurologic: No confusion, No numbness.Psychiatric: No depression, Not delusional. Integumentary: No rash, No pruritus, No breakdown. Neurologic: No confusion, No numbness. Psychiatric: No depression, Not delusional. Health StatusAllergies:Allergic Reactions (Selected)No Known Allergies,Allergies (1) ActiveReactionNo Known AllergiesNone DocumentedCurrent medications: (Selected)Inpatient MedicationsOrderedBenadryl: 12.5 mg, Oral, At Bedtime, PRN: SleepBenadryl: 25 mg, Oral, Q4H, PRN: ItchingCeleBREX: 200 mg, Oral, I34PDxcUzfvxu: 100 mg, Oral, BIDDextrose 5% in Lactated Ringers Injection 1,000 mL: 75 mL/Hr, IntraVENousDulcolax Laxative: 10 mg, Rectal, 1-Time, PRN: ConstipationFleet Enema: 133 mL, Rectal, 1-Time, PRN: ConstipationLovenox: 30 mg, SubCutaneous, X84KBeeinxkl: 40 mg, Oral, DailySenokot S: 2 Tab, Oral, At BedtimeTylenol: 1,000 mg, Oral, S2IFloDzlofi: 4 mg, IV Push, Q8H, PRN: Nauseadexamethasone: 10 mg, IV Push, 1-Timegabapentin: 300 mg, Oral, At Bedtimemetoclopramide: 5 mg, IV Push, Q4H, PRN: Nausea/Vomitingmultivitamin: 1 Tab, Oral, Dailynaloxone: 0.1 mg, IV Push, Q5Min, PRN: OversedationoxyCODONE: 10 mg, Oral, Q4H, PRN: Pain (Severe 7-10)oxyCODONE: 5 mg, Oral, Q4H, PRN: Pain (Moderate 4-6)senna: 8.6 mg, Oral, At Bedtime, PRN: ConstipationtraMADol: 100 mg, Oral, Q6H, PRN: Pain (Mild 1-3)Documented MedicationsDocumentedBenadryl 25 mg oral tablet: 0.5 Tab, Oral, At Bedtime, PRN: Insomnia, 0 Refill(s)Colace 100 mg oral capsule: 1 Cap, Oral, BID, 0 Refill(s)Fleet Enema: 133 mL, Rectal, 1-Time, PRN: Constipation, 0 Refill(s)Metoprolol Tartrate 25 mg oral tablet: 0.5 Tab, Oral, BID, 30 Tab, 0 Refill(s)NexIUM 40 mg oral delayed release capsule: 1 Cap, Oral, Daily, 30 Cap, 0 Refill(s)Plavix 75 mg oral tablet: 1 Tab, Oral, Daily, 30 Tab, 0 Refill(s)RisperDAL 0.5 mg oral tablet: 1 Tab, Oral, At Bedtime, 0 Refill(s)Senokot S: 2 Tab, Oral, At Bedtime, 0 Refill(s)Tylenol 500 mg oral tablet: 2 Tab, Oral, Q6H, PRN: as needed for pain, 0 Refill(s)Vitamin B-12 500 mcg oral tablet: 1 Tab, Oral, Daily, 30 Tab, 0 Refill(s)Vitamin D3 2000 intl units oral tablet: 1 Tab, Oral, Daily, 0 Refill(s)Zetia: 10 mg, Oral, At Bedtime, 0 Refill(s)amLODIPine 10 mg oral tablet: 1 Tab, Oral, Daily, 30 Tab, 0 Refill(s)aspirin 81 mg oral tablet: 1 Tab, Oral, Daily, 30 Tab, 0 Refill(s)ferrous sulfate 325 mg (65 mg elemental iron) oral delayed release tablet: 1 Tab, Oral, BID, 0 Refill(s)lisinopril 40 mg oral tablet: 0.5 Tab, Oral, BID, 0 Refill(s)lovastatin 40 mg oral tablet: 1 Tab, Oral, At Bedtime, 30 Tab, 0 Refill(s)multivitamin: 1 Tab, Oral, Daily, 0 Refill(s)oxyCODONE 5 mg oral tablet: 1 Tab, Oral, Q4H, PRN: Pain (Moderate 4-6), 0 Refill(s)senna: 8.6 mg, Oral, At Bedtime, PRN: Constipation, 0 Refill(s),Medications (21) ActiveScheduled: (9)acetaminophen 500 mg tab 1,000 mg 2 Tab, Oral, N9WEcikpnbfcscq 200 mg cap 200 mg 1 Cap, Oral, T48PIwfksauwzkmrlqxl 10 mg/1 mL inj 10 mg 1 mL, IV Push, 1-Timedocusate sodium 100 mg cap 100 mg 1 Cap, Oral, BIDenoxaparin 30 mg/0.3 ml inj 30 mg 0.3 mL, SubCutaneous, R50Wkbkfifdzzp 300 mg cap 300 mg 1 Cap, Oral, At Bedtimemultiple vitamin (Thera) tab 1 Tab, Oral, Dailypantoprazole EC 40 mg tab 40 mg 1 Tab, Oral, Dailysenna/docusate 8.6/50 mg tab 2 Tab, Oral, At BedtimeContinuous: (1)D5/LR 1,000 mL 1,000 mL, IntraVENous, 75 mL/HrPRN: (11)bisacodyl 10 mg supp 10 mg 1 Supp, Rectal, 1-TimediphenhydrAMINE 25 mg tab 25 mg 1 Tab, Oral, E7GjcwkkghwapWJONI 25 mg tab 12.5 mg 0.5 Tab, Oral, At Bedtimemetoclopramide 10 mg/2 mL inj 5 mg 1 mL, IV Push, Q4HNa biphos-Na phos 19 g-7 g enema 133 mL, Rectal, 1-Timenaloxone 0.4 mg/1 mL inj 0.1 mg 0.25 mL, IV Push, F0Tjfnjwddffebmh 4 mg/2 mL inj 4 mg 2 mL, IV Push, X7EnlfEDQOXU 5 mg tab 5 mg 1 Tab, Oral, S0RouhMFMWJE 5 mg tab 10 mg 2 Tab, Oral, Z3Ddaegy 8.6 mg tab 8.6 mg 1 Tab, Oral, At BedtimetraMADol 50 mg tab 100 mg 2 Tab, Oral, X5CKzkwkee list:MedicalAnemia / SNOMED CT 848649016 / ConfirmedCAD (coronary artery disease) / SNOMED CT 3852289368 / ConfirmedKnee pain, right / SNOMED CT 475749239 / ConfirmedCharcot's joint of foot (right) / SNOMED CT 6140371507 / ConfirmedChronic atrial fibrillation / SNOMED CT 2193676339 / ConfirmedAcid reflux / SNOMED CT 1131290543 / ConfirmedHTN (hypertension) / SNOMED CT 0861043365 / ConfirmedElevated lipids / SNOMED CT 053997017 / ConfirmedMental retardation / SNOMED CT 4577098010 / ConfirmedOsteoarthritis / SNOMED CT 3872618606 / Confirmedright knee Osteoarthritis status post Right knee ArthoplastyHx: TIA (transient ischemic attack) / SNOMED CT 901821284 / Confirmed,Active Problems (11)Acid reflux Anemia CAD (coronary artery disease) Charcot's joint of foot (right) Chronic atrial fibrillation Elevated lipids HTN (hypertension) Hx: TIA (transient ischemic attack) Knee pain, right Mental retardation Osteoarthritis diphenhydrAMINE 25 mg tab 12.5 mg 0.5 Tab, Oral, At Bedtime metoclopramide 10 mg/2 mL inj 5 mg 1 mL, IV Push, Q4H Na biphos-Na phos 19 g-7 g enema 133 mL, Rectal, 1-Time naloxone 0.4 mg/1 mL inj 0.1 mg 0.25 mL, IV Push, Q5Min ondansetron 4 mg/2 mL inj 4 mg 2 mL, IV Push, Q8H oxyCODONE 5 mg tab 5 mg 1 Tab, Oral, Q4H oxyCODONE 5 mg tab 10 mg 2 Tab, Oral, Q4H senna 8.6 mg tab 8.6 mg 1 Tab, Oral, At Bedtime traMADol 50 mg tab 100 mg 2 Tab, Oral, Q6H Problem list: Medical Anemia / SNOMED CT 621968543 / Confirmed CAD (coronary artery disease) / SNOMED CT 9578976490 / Confirmed Knee pain, right / SNOMED CT 014526301 / Confirmed Charcot's joint of foot (right) / SNOMED CT 7960963480 / Confirmed Chronic atrial fibrillation / SNOMED CT 0602753743 / Confirmed Acid reflux / SNOMED CT 3987440202 / Confirmed HTN (hypertension) / SNOMED CT 3897334731 / Confirmed Elevated lipids / SNOMED CT 313204109 / Confirmed Mental retardation / SNOMED CT 2861976387 / Confirmed Osteoarthritis / SNOMED CT 0947371613 / Confirmed right knee Osteoarthritis status post Right knee Arthoplasty Hx: TIA (transient ischemic attack) / SNOMED CT 687096248 / Confirmed, Active Problems (11) Acid reflux Anemia CAD (coronary artery disease) Charcot's joint of foot (right) Chronic atrial fibrillation Elevated lipids HTN (hypertension) Hx: TIA (transient ischemic attack) Knee pain, right Mental retardation Osteoarthritis Physical ExaminationVS/MeasurementsVitals Signs (last 24 hrs) Last Charted Minimum MaximumTemp 97.7 (MAY 24 15:00)97.7 (MAY 24 15:)98.0 (MAY 24 07:00)Mon HR 90 (MAY 24 15:)82 (MAY 24 03:01)101 (MAY 23 16:00)Resp Rate 18 (MAY 24 15:)16 (MAY 23 19:48)18 (MAY 23 16:00)SBP H 158 (MAY 24 15:)128 (MAY 24 03:01)H 158 (MAY 24 15:)DBP 68 (MAY 24 15:00)68 (MAY 24 15:00)H 94 (MAY 23 19:48)MAP 95 (MAY 23 23:24)95 (MAY 23 23:24)95 (MAY 23 23:24)SpO2 97 (MAY 24 03:01)97 (MAY 24 03:01)100 (MAY 23 16:00)General: Alert and oriented, No acute distress.Eye: Extraocular movements are intact, Normal conjunctiva. Sclera: Not icteric.HENT: Normocephalic, Normal hearing, Oral mucosa is moist.Neck: Supple, Non-tender, No jugular venous distention, No lymphadenopathy.Respiratory: Lungs are clear to auscultation, Respirations are non-labored, Breath sounds are equal, Symmetrical chest wall expansion.Cardiovascular: Normal rate, Regular rhythm, No murmur, No gallop, Good pulses equal in all extremities, No edema.Gastrointestinal: Soft, Non-tender, Non-distended, Normal bowel sounds, No organomegaly.Genitourinary: No costovertebral angle tenderness.Lymphatics: No lymphadenopathy neck, axilla, groin.Musculoskeletal: Normal strength, No tenderness, No swelling, with right cast from above the knee to ankle.Integumentary: Warm, [place], Moist, No rash.Neurologic: Alert, Oriented, No focal deficits, Cranial Nerves II-XII are grossly intact.Psychiatric: Cooperative, Appropriate mood & affect, Normal judgment. Review / ManagementResults review:Labs (Last four charted values)WBC L 3.5(MAY 24)HB L 10.4(MAY 24)L 10.6(MAY 23)HCT L 33.7(MAY 24)L 33.6(MAY 14)Plt 200(MAY 24)Na H 148(MAY 15)145(MAY 14)K 4.0(MAY 24)3.8(MAY 14)Cl H 112(MAY 24)H 110(MAY 14)CO2 27(MAY 24)27(MAY 14)BUN H 30(MAY 15)H 27(MAY 14)Cr 1.04(MAY 24)1.09(MAY 23)Glu R 97(MAY 24)H 121(MAY 23)Ca L 8.4(MAY 24)8.6(MAY 23), MAY 24 04:35 H 148 | H 112 | H 30 / 97 4.0 | 27 | 1.04 \\ MAY 24 04:35 \\ L 10.4 / L 3.5 200 / L 33.7 \\, Radiology Results (Last 48 hours)[id number] -- 05/23/2016 06:42CR Knee 1 or 2 Vws RT (05/23/2016 15:31) Result: Right kneeHISTORY: Right knee pain. Postoperative exam.FINDINGS:2 views of the right knee were obtained. The patient is status posttotal knee arthroplasty. Overlying cast limits the exam. There is anage-indeterminate inferior patellar fracture. The patella lies in asuperior location. There is a questionable fracture of the medialfemoral condyle.IMPRESSION:Postoperative and posttraumatic changes as above.Sarah, the patient's nurse, was notified of these findings at time ofdictation.Reviewed, interpreted, and dictated by Dr. Abdias MD.Transcribed by Tommy Martinez PA-C.I have personally viewed, interpreted and dictated the examination. Ihave read and agree with the above final transcribed report.CR Chest 1 Vw Portable (05/23/2016 18:54) Result: PORTABLE CHEST 05/23/2016 5:24 PM HISTORY: Atrial fibrillation.COMPARISON: None.FINDINGS: The heart is normal in size . The mediastinum isunremarkable . There is a right mid lung field nodule. There is nopneumothorax . The osseous structures are unremarkable . IMPRESSION: Nodular opacity as above. Follow-up to complete resolution recommended . Reviewed, interpreted, and dictated by Dr. Abdias M.D.Transcribed by RT Fawad (R) (R)I have personally viewed, interpreted and dictated the examination. Ihave read and agree with the above final transcribed report. . [id number] -- 05/23/2016 06:42 CR Knee 1 or 2 Vws RT (05/23/2016 15:31) Result: Right kneeHISTORY: Right knee pain. Postoperative exam.FINDINGS:2 views of the right knee were obtained. The patient is status posttotal knee arthroplasty. Overlying cast limits the exa m. There is anage-indeterminate inferior patellar fracture. The patella lies in asuperior location. There is a questionable fracture of the medialfemoral condyle.IMPRESSION:Postoperative and posttraum atic changes as above.Sarah, the patient's nurse, was notified of these findings at time ofdictation.Reviewed, interpreted, and dictated by Dr. Abdias MD.Transcribed by Tommy Martinez PA-C.I have per sonally viewed, interpreted and dictated the examination. Ihave read and agree with the above final transcribed report. CR Chest 1 Vw Portable (05/23/2016 18:54) Result: PORTABLE CHEST 05/23/2016 5:24 PM HISTORY: Atrial fibrillation.COMPARISON: None.FINDINGS: The heart is normal in size . The mediastinum isunremarkable . There is a right mid lung field nodule. There is nopneumothorax . The osseous structures are unremarkable . IMPRESSION: Nodular opacity as above. Follow-up to complete resolution recommended . Reviewed, interpreted, and dictated by Dr. Abdias M.D.Transcribed by RT Fawad (R) (R)I have personally viewed, interpreted and dictated the examination. Ihave read and agree with the above final transcribed report. . Impression and Planright knee manipulation under anesthesiaOrthopedic surgery following, will be discharged to inpatient rehabilitation on ThursdayParoxysmal atrial fibrillationrestart home medication Lopressor twice a day, currently normal sinus rhythmNot on anticoagulation at homeBenign essential hypertensionRestart metoprolol, hold lisinopril for nowGERDContinue ProtonixDVT prophylaxis per orthopedic surgery, Lovenox twice a dayGI prophylaxis ProtonixFull code30 minutes spent evaluation. Discussed with medical power of immigration attorney andalejandro.Discussed with case managementDisposition: Awaiting rehabilitation placement, will likely be Thursday in [place]. Restart metoprolol, hold lisinopril for now GERD Continue Protonix DVT prophylaxis per orthopedic surgery, Lovenox twice a day GI prophylaxis Protonix Full code 30 minutes spent evaluation. Discussed with medical power of immigration attorney andalejandro. Discussed with case management Disposition: Awaiting rehabilitation placement, will likely be Thursday in [place]. Extracted from: Title: Discharge Note Author: LUIZ RODRIGUEZ Date: 05/24/16 A, DO Discharge Plan [1] Discharge Plan Ortho Discharge Summary Addendum Discharge: Facility Procedure: ORIF Right Patella Fx Periprosthetic Complications: None DVT Prophylaxis: Continue home dose of Plavix in addition to Lovenox 40mg inj, 1qam for 2 weeks then resume ASA home dose WBStatus: TDWB with cast shoe PT Notes: Please use leg animal sitter to assist patient mobility F/U in clinic 2-3 weeks Discharge Instructions: 1)Elevate the knee and the entire lower extremity for as much as possible for 6 weeks and use ice liberally for 30 minutes 3-4 times a day. 2) Keep cast c/d/i 3) Lovenox 40mg injection for 2 weeks, then resume ASA home dose. Discharge Medications Home Medications (20) Active amLODIPine 10 mg oral tablet 10 mg = 1 Tab, Oral, Daily Benadryl 25 mg oral tablet 12.5 mg = 0.5 Tab, PRN, Oral, At Bedtime Colace 100 mg oral capsule 100 mg = 1 Cap, Oral, BID ferrous sulfate 325 mg (65 mg elemental iron) oral delayed release tablet 325 mg = 1 Tab, Oral, BID Fleet Enema 133 mL, PRN, Rectal, 1-Time lisinopril 40 mg oral tablet 20 mg = 0.5 Tab, Oral, BID lovastatin 40 mg oral tablet 40 mg = 1 Tab, Oral, At Bedtime Metoprolol Tartrate 25 mg oral tablet 12.5 mg = 0.5 Tab, Oral, BID multivitamin 1 Tab, Oral, Daily NexIUM 40 [...] Daily Zetia 10 mg, Oral, At Bedtime Lovenox 40mg inj, 1 qam Oxycodone 5mg tabs, 1 q6-8 PRN [2] No qualifying data available. Patient Discharge Condition Stable Discharge Disposition Rehabilitation in [facility] This discharge took 36 minutes. ferrous sulfate 325 mg (65 mg elemental iron) oral delayed release tablet 325 mg = 1 Tab, Oral, BID Fleet Enema 133 mL, PRN, Rectal, 1-Time lisinopril 40 mg oral tablet 20 mg = 0.5 Tab, Oral, BID lovastatin 40 mg oral tablet 40 mg = 1 Tab, Oral, At Bedtime Metoprolol Tartrate 25 mg oral tablet 12.5 mg = 0.5 Tab, Oral, BID multivitamin 1 Tab, Oral, Daily NexIUM 40 [...] Daily Zetia 10 mg, Oral, At Bedtime Lovenox 40mg inj, 1 qam Oxycodone 5mg tabs, 1 q6-8 PRN [2] No qualifying data available. Patient Discharge Condition Stable Discharge Disposition Rehabilitation in [facility] This discharge took 36 minutes. Hospital Discharge Instructions Patient EducationCast or Splint Care Hand Washing How and Where to Give Subcutaneous Enoxaparin Injections Patellar Dislocation Walker Use"
--- OUTSIDE RECORDS SUMMARY | 2016-11-22 19:25 | External Medical Summary Rpt ---
Author Author CHELY [facility] Organization [facility] Address Unknown Phone Unavailable Care Team Providers Care Analytic Programmer Name Role Phone NIKKI, (REF) PCP [phone] Encounter CHELY [facility] [id number] Date(s): 05/22/16 - 05/27/16 [facility] [address] [place] [address]- Discharge Disposition: Inpatient Rehabilatation Facility Attending Physician: [...] (05/25/16 4:00 AM) 12:40 PM) Height Entry Larue Larue (05/23/16 Format (05/25/16 4:00 AM) 12:40 PM) Height/Lengt 6 ft 6 ft (05/23/16 h, [place] (05/25/16 4:00 AM) 12:40 PM) (ft) Height/Lengt 4 Inch 4 Inch (05/23/16 h [place] (05/25/16 4:00 AM) 12:40 PM) CLINICALHEIG 193.04 cm 193.04 cm HT (05/25/16 4:00 AM) (05/23/16 12:40 PM) Weight Standing scale Source (05/23/16 12:40 PM) Weight Entry Larue (05/23/16 Format 12:40 PM) Weight 211 lb (05/23/16 Portuguese lb 12:40 PM) CLINICALWEIG 95.91 kg (05/23/16 [...] m2 Area (BSA), (05/25/16 4:00 AM) Routine Quinter Body 86 kg (05/23/16 Weight 12:40 PM) [...] needed for pain, Refills: 0Ordering provider: LUIZ RODRIGUZE DO oxyCODONE (oxyCODONE 5 mg oral tablet)1 [...] K/uL] 4:34 AM) 4:03 AM) 4:35 AM) Stephens % 7.1 % (05/27/16 9.1 % (05/26/16 8.2 % (05/24/16 [4.7-12.5 %] 4:34 AM) 4:03 AM) 4:35 AM) Stephens # 0.28 K/uL 0.39 K/uL 0.29 K/uL [...] Oral, Q4H, PRN: ItchingCeleBREX: 200 mg, Oral, F01IIroUrepjh: 100 mg, Oral, BIDDextrose 5% in Lactated Ringers Injection 1,000 mL: 75 mL/Hr, IntraVENousDulcolax Laxative: 10 mg, Rectal, 1-Time, PRN: ConstipationFleet Enema: 133 mL, Rectal, 1-Time, PRN: ConstipationLopressor: 12.5 mg, Oral, BIDLovenox: 30 mg, SubCutaneous, C74SVkyrzknd: 40 mg, Oral, DailyRisperDAL: 0.5 mg, Oral, At BedtimeSenokot S: 2 Tab, Oral, At BedtimeTylenol: 1,000 mg, Oral, K5DYwaQrgzeet D3: 2,000 Units, Oral, DailyZetia: 10 mg, [...] mg tab 1,000 mg 2 Tab, Oral, K5YBhzqfXWWBWyas 10 mg tab 10 mg 1 Tab, Oral, Dailycelecoxib 200 mg cap 200 mg 1 Cap, Oral, R59QMzckwyosfhnfovclif 1,000 int unit tab 2,000 Units 2 Tab, Oral, Dailydocusate sodium 100 mg cap 100 mg 1 Cap, Oral, BIDenoxaparin 30 mg/0.3 ml inj 30 mg 0.3 mL, SubCutaneous, Z38Kuduopyowb 10 mg tab 10 mg 1 Tab, [...] mg tab 25 mg 1 Tab, Oral, K0KpysmugrypiSNEDL 25 mg tab 12.5 mg 0.5 Tab, Oral, At BedtimeNa biphos-Na phos 19 g-7 g enema 133 mL, Rectal, 1-Timenaloxone 0.4 mg/1 mL inj 0.1 mg 0.25 mL, IV Push, V0Fqpixiqqzvyozy 4 mg/2 mL inj 4 mg 2 mL, IV Push, I7GvulKHJQTQ 5 mg tab 5 mg 1 Tab, Oral, H0MwzkYXIUFT 5 mg tab 10 mg 2 Tab, Oral, A8Lyeltg 8.6 mg tab 8.6 mg 1 Tab, Oral, At BedtimetraMADol 50 mg tab 100 mg 2 Tab, Oral, T3KWjgiwcf list:MedicalAnemia / SNOMED CT 011441890 / ConfirmedCAD (coronary artery disease) / SNOMED CT 7540372407 / ConfirmedKnee pain, right / SNOMED CT 548096156 / ConfirmedCharcot's joint of foot (right) / SNOMED CT 9614510345 / ConfirmedChronic atrial fibrillation / SNOMED CT 0945313040 / ConfirmedAcid reflux / SNOMED CT 7250991139 / ConfirmedHTN (hypertension) / SNOMED CT 0214657838 / ConfirmedElevated lipids / SNOMED CT 125546318 / ConfirmedMental retardation / SNOMED CT 6154479387 / ConfirmedOsteoarthritis / SNOMED CT 3694132273 / Confirmedright knee Osteoarthritis status post Right knee ArthoplastyHx: TIA (transient ischemic attack) / SNOMED CT 712918370 / Confirmed,Active Problems (11)Acid reflux Anemia CAD [...] Problem list: Medical Anemia / SNOMED CT 116897862 / Confirmed CAD (coronary artery disease) / SNOMED CT 4484664751 / Confirmed Knee pain, right / SNOMED CT 853230424 / Confirmed Charcot's joint of foot (right) / SNOMED CT 1812354793 / Confirmed Chronic atrial fibrillation / SNOMED CT 7885861502 / Confirmed Acid reflux / SNOMED CT 2257993845 / Confirmed HTN (hypertension) / SNOMED CT 7541483088 / Confirmed Elevated lipids / SNOMED CT 352039554 / Confirmed Mental retardation / SNOMED CT 9975187435 / Confirmed Osteoarthritis / SNOMED CT 6243168496 / Confirmed right knee Osteoarthritis status post Right knee Arthoplasty Hx: TIA (transient ischemic attack) / SNOMED CT 264738234 / Confirmed, Active Problems (11) Acid reflux [...] cast off, knee chlorprep, good pulses.Integumentary: Warm, [place], Moist, No rash.Neurologic: Alert, Oriented, No focal [...] L 34.3 \\, Radiology Results (Last 48 hours)[id number] -- 05/23/2016 06:42CT Knee RT WO (05/25/2016 [...] fracture. . Radiology Results (Last 48 hours) [id number] -- 05/23/2016 06:42 CT Knee RT WO [...] discharged to inpatient rehabilitation on Thursday in [place] / june reevaluate after surgery todaypatella fracturefound on ct scan yesterdayfor ORIF today / ortho followingParoxysmal atrial fibrillationcontinue Lopressor twice a day, currently normal sinus rhythmNot on anticoagulation at homeBenign essential hypertensioncontinue metoprolol, hold lisinopril for nowcontrolledGERDContinue ProtonixDVT prophylaxis per orthopedic surgery, Lovenox twice a dayGI prophylaxis ProtonixFull code27 minutes spent evaluation. Discussed with medical power of associate attorney, cousin.Discussed with RN.Disposition: ORIF today, june still dc to SNF tomorrow Benign essential hypertension continue metoprolol, hold lisinopril for now controlled GERD Continue Protonix DVT prophylaxis per orthopedic surgery, Lovenox twice a day GI prophylaxis Protonix Full code 27 minutes spent evaluation. Discussed with medical power of associate attorney, cousin. Discussed with RN. Disposition: ORIF [...] Oral, Q4H, PRN: ItchingCeleBREX: 200 mg, Oral, B84NAhbAkraox: 100 mg, Oral, BIDDextrose 5% in Lactated Ringers Injection 1,000 mL: 75 mL/Hr, IntraVENousDulcolax Laxative: 10 mg, Rectal, 1-Time, PRN: ConstipationFleet Enema: 133 mL, Rectal, 1-Time, PRN: ConstipationLopressor: 12.5 mg, Oral, BIDLovenox: 30 mg, SubCutaneous, U51WJaewfkod: 40 mg, Oral, DailyRisperDAL: 0.5 mg, Oral, At BedtimeSenokot S: 2 Tab, Oral, At BedtimeTylenol: 1,000 mg, Oral, K0OFliLbqfjnl D3: 2,000 Units, Oral, DailyZetia: 10 mg, [...] mg tab 1,000 mg 2 Tab, Oral, G1WPqmigNMNNAbna 10 mg tab 10 mg 1 Tab, Oral, Dailycelecoxib 200 mg cap 200 mg 1 Cap, Oral, D93UZtlbuqlodnbajbydoa 1,000 int unit tab 2,000 Units 2 Tab, Oral, Dailydocusate sodium 100 mg cap 100 mg 1 Cap, Oral, BIDenoxaparin 30 mg/0.3 ml inj 30 mg 0.3 mL, SubCutaneous, O08Dhmvybbdvg 10 mg tab 10 mg 1 Tab, [...] mg tab 25 mg 1 Tab, Oral, J0ImzmnvajfmcIAHWC 25 mg tab 12.5 mg 0.5 Tab, Oral, At BedtimeNa biphos-Na phos 19 g-7 g enema 133 mL, Rectal, 1-Timenaloxone 0.4 mg/1 mL inj 0.1 mg 0.25 mL, IV Push, Z3Isonbziqeryxly 4 mg/2 mL inj 4 mg 2 mL, IV Push, R6XcqnIGZPXA 5 mg tab 5 mg 1 Tab, Oral, M5WmqnKUTWQW 5 mg tab 10 mg 2 Tab, Oral, G1Shvgkn 8.6 mg tab 8.6 mg 1 Tab, Oral, At BedtimetraMADol 50 mg tab 100 mg 2 Tab, Oral, H4ENvraivk list:MedicalAnemia / SNOMED CT 433273955 / ConfirmedCAD (coronary artery disease) / SNOMED CT 0454897204 / ConfirmedKnee pain, right / SNOMED CT 886696719 / ConfirmedCharcot's joint of foot (right) / SNOMED CT 7242604199 / ConfirmedChronic atrial fibrillation / SNOMED CT 2005909118 / ConfirmedAcid reflux / SNOMED CT 5672354798 / ConfirmedHTN (hypertension) / SNOMED CT 2939911454 / ConfirmedElevated lipids / SNOMED CT 716224094 / ConfirmedMental retardation / SNOMED CT 1255580527 / ConfirmedOsteoarthritis / SNOMED CT 9173905452 / Confirmedright knee Osteoarthritis status post Right knee ArthoplastyHx: TIA (transient ischemic attack) / SNOMED CT 480633691 / Confirmed,Active Problems (11)Acid reflux Anemia CAD [...] Problem list: Medical Anemia / SNOMED CT 077450618 / Confirmed CAD (coronary artery disease) / SNOMED CT 4362247247 / Confirmed Knee pain, right / SNOMED CT 418578840 / Confirmed Charcot's joint of foot (right) / SNOMED CT 6806641511 / Confirmed Chronic atrial fibrillation / SNOMED CT 3248695165 / Confirmed Acid reflux / SNOMED CT 4346564158 / Confirmed HTN (hypertension) / SNOMED CT 3750630263 / Confirmed Elevated lipids / SNOMED CT 786526169 / Confirmed Mental retardation / SNOMED CT 2585759209 / Confirmed Osteoarthritis / SNOMED CT 8141515070 / Confirmed right knee Osteoarthritis status post Right knee Arthoplasty Hx: TIA (transient ischemic attack) / SNOMED CT 239992292 / Confirmed, Active Problems (11) Acid reflux [...] to ankle, good pulses, wiggles toes.Integumentary: Warm, [place], Moist, No rash.Neurologic: Alert, Oriented, No focal [...] | 1.17 \\, Radiology Results (Last 48 hours)[id number] -- 05/23/2016 06:42CR Knee 1 or 2 [...] [place] atrial fibrillationcontinue Lopressor twice a day, currently normal sinus rhythmNot on anticoagulation at homeBenign essential hypertensioncontinue metoprolol, hold lisinopril for nowcontrolledGERDContinue ProtonixDVT prophylaxis per orthopedic surgery, Lovenox twice a dayGI prophylaxis ProtonixFull code28 minutes spent evaluation. Discussed with medical power of associate attorney, alejandro.Discussed with RN.Disposition: Awaiting rehabilitation placement, will likely be Thursday in [place]. ortho repeat xray knee today controlled GERD Continue Protonix DVT prophylaxis per orthopedic surgery, Lovenox twice a day GI prophylaxis Protonix Full code 28 minutes spent evaluation. Discussed with medical power of associate attorneyalejandro. Discussed with RN. Disposition: Awaiting rehabilitation placement, will likely be Thursday in [place]. ortho repeat xray knee today Extracted from: [...] Oral, Q4H, PRN: ItchingCeleBREX: 200 mg, Oral, K10IMnmSlfjun: 100 mg, Oral, BIDDextrose 5% in Lactated Ringers Injection 1,000 mL: 75 mL/Hr, IntraVENousDulcolax Laxative: 10 mg, Rectal, 1-Time, PRN: ConstipationFleet Enema: 133 mL, Rectal, 1-Time, PRN: ConstipationLovenox: 30 mg, SubCutaneous, K25JZbiznfue: 40 mg, Oral, DailySenokot S: 2 Tab, Oral, At BedtimeTylenol: 1,000 mg, Oral, Y2WOzrAzytry: 4 mg, IV Push, Q8H, PRN: Nauseadexamethasone: [...] mg tab 1,000 mg 2 Tab, Oral, B4BDcddqragfwcx 200 mg cap 200 mg 1 Cap, Oral, N07MBtnwleyzjejyygyy 10 mg/1 mL inj 10 mg 1 mL, IV Push, 1-Timedocusate sodium 100 mg cap 100 mg 1 Cap, Oral, BIDenoxaparin 30 mg/0.3 ml inj 30 mg 0.3 mL, SubCutaneous, S67Mjankqrrmft 300 mg cap 300 mg 1 Cap, Oral, At Bedtimemultiple vitamin (Thera) tab 1 Tab, Oral, Dailypantoprazole EC 40 mg tab 40 mg 1 Tab, Oral, Dailysenna/docusate 8.6/50 mg tab 2 Tab, Oral, At BedtimeContinuous: (1)D5/LR 1,000 mL 1,000 mL, IntraVENous, 75 mL/HrPRN: (11)bisacodyl 10 mg supp 10 mg 1 Supp, Rectal, 1-TimediphenhydrAMINE 25 mg tab 25 mg 1 Tab, Oral, N3AzutzjbyecaREOGH 25 mg tab 12.5 mg 0.5 Tab, Oral, At Bedtimemetoclopramide 10 mg/2 mL inj 5 mg 1 mL, IV Push, Q4HNa biphos-Na phos 19 g-7 g enema 133 mL, Rectal, 1-Timenaloxone 0.4 mg/1 mL inj 0.1 mg 0.25 mL, IV Push, D8Vpmwnkreylctjn 4 mg/2 mL inj 4 mg 2 mL, IV Push, D5KjebHGQXEU 5 mg tab 5 mg 1 Tab, Oral, M9RjniCPPTXR 5 mg tab 10 mg 2 Tab, Oral, N9Mtbxsl 8.6 mg tab 8.6 mg 1 Tab, Oral, At BedtimetraMADol 50 mg tab 100 mg 2 Tab, Oral, M3WOwjfkfk list:MedicalAnemia / SNOMED CT 980947019 / ConfirmedCAD (coronary artery disease) / SNOMED CT 8236651120 / ConfirmedKnee pain, right / SNOMED CT 558491909 / ConfirmedCharcot's joint of foot (right) / SNOMED CT 1006835437 / ConfirmedChronic atrial fibrillation / SNOMED CT 1313986941 / ConfirmedAcid reflux / SNOMED CT 0292386706 / ConfirmedHTN (hypertension) / SNOMED CT 3873720884 / ConfirmedElevated lipids / SNOMED CT 913955705 / ConfirmedMental retardation / SNOMED CT 6573667136 / ConfirmedOsteoarthritis / SNOMED CT 6417579431 / Confirmedright knee Osteoarthritis status post Right knee ArthoplastyHx: TIA (transient ischemic attack) / SNOMED CT 911786309 / Confirmed,Active Problems (11)Acid reflux Anemia CAD [...] Problem list: Medical Anemia / SNOMED CT 582574099 / Confirmed CAD (coronary artery disease) / SNOMED CT 6173945055 / Confirmed Knee pain, right / SNOMED CT 225440936 / Confirmed Charcot's joint of foot (right) / SNOMED CT 6705697153 / Confirmed Chronic atrial fibrillation / SNOMED CT 7322755170 / Confirmed Acid reflux / SNOMED CT 9466665630 / Confirmed HTN (hypertension) / SNOMED CT 5156252408 / Confirmed Elevated lipids / SNOMED CT 136237289 / Confirmed Mental retardation / SNOMED CT 7306440919 / Confirmed Osteoarthritis / SNOMED CT 4072001954 / Confirmed right knee Osteoarthritis status post Right knee Arthoplasty Hx: TIA (transient ischemic attack) / SNOMED CT 410370370 / Confirmed, Active Problems (11) Acid reflux [...] from above the knee to ankle.Integumentary: Warm, [place], Moist, No rash.Neurologic: Alert, Oriented, No focal [...] L 33.7 \\, Radiology Results (Last 48 hours)[id number] -- 05/23/2016 06:42CR Knee 1 or 2 [...] with the above final transcribed report. . [id number] -- 05/23/2016 06:42 CR Knee 1 or [...] spent evaluation. Discussed with medical power of associate attorney andalejandro.Discussed with case managementDisposition: Awaiting rehabilitation placement, will likely be Thursday in [place]. Restart metoprolol, hold lisinopril for now GERD Continue Protonix DVT prophylaxis per orthopedic surgery, Lovenox twice a day GI prophylaxis Protonix Full code 30 minutes spent evaluation. Discussed with medical power of associate attorney andalejandro. Discussed with case management Disposition: Awaiting rehabilitation placement, will likely be Thursday in [place]. Extracted from: Title: Discharge Note Author: LUIZ RODRIGUEZ Date: 05/24/16 A, DO Discharge Plan [1] Discharge Plan Ortho Discharge Summary Addendum Discharge: Facility Procedure: ORIF Right Patella Fx Periprosthetic Complications: None DVT Prophylaxis: Continue home dose of Plavix in addition to Lovenox 40mg inj, 1qam for 2 weeks then resume ASA home dose WBStatus: TDWB with cast shoe PT Notes: Please use leg consulting business developer to assist patient mobility F/U in clinic [...] Discharge Condition Stable Discharge Disposition Rehabilitation in [facility] This discharge took 36 minutes. ferrous sulfate [...] Discharge Condition Stable Discharge Disposition Rehabilitation in [facility] This discharge took 36 minutes. Hospital Discharge Instructions Patient EducationCast or Splint Care Hand Washing How and Where to Give Subcutaneous Enoxaparin Injections Patellar Dislocation Walker Use"
--- OUTSIDE RECORDS SUMMARY | 2016-11-22 19:25 | External Medical Summary Rpt ---
Author Author CHELY [facility] Organization [facility] Address Unknown Phone Unavailable Care Team Providers Care Career Technical Counselor Name Role Phone NIKKI, (REF) PCP [phone] Encounter CHELY [facility] [id number] Date(s): 07/24/16 - 08/04/16 [facility] [address] [place] [address]- [phone] Discharge Disposition: OP Self Care or Home Attending Physician: JOCE TODD MD-ORAdalberto Admitting Physician: JOCE TODD MD-ORT Referring Physician: JOCE TODD MD-ORT Reason for Visit XXXXX Vital Signs No data available for this section Problem List Condition Effective Status Health Informant [...] Order, As Needed, Constipation, Refills: 0 Results No data available for this section Immunizations No data available for this section Procedures No data available for this section Social History Social History Response Type Smoking Status Never smoker; Second Hand Smoke Exposure No Assessment and Plan No data available for this section Hospital Discharge Instructions No data available for this section
--- OUTSIDE RECORDS SUMMARY | 2016-11-22 19:25 | External Medical Summary Rpt ---
Author Author CHELY [facility] Organization [facility] Address Unknown Phone Unavailable Care Team Providers Care Photographer Portrait Name Role Phone NIKKI, (REF) PCP [phone] Encounter CHELY WE[facility] [id number] Date(s): 07/24/16 - 08/04/16 [facility] [address] [place] [address]- Discharge Disposition: OP Self Care or Home [...]
--- OUTSIDE RECORDS SUMMARY | 2016-11-22 19:27 | External Medical Summary Rpt | CCD ---
Demographics Preferred Language Greenlandic Marital Status Unknown Synagogue Affiliation Unknown Race Unknown Ethnic Group Unknown Author Author , AURELIA DEL VALLE Address Unknown Phone Immunization No patient found.
--- OUTSIDE RECORDS SUMMARY | 2016-11-22 19:27 | External Medical Summary Rpt | CCD ---
Demographics Preferred Language Malian Marital Status Unknown Sabianism Affiliation Unknown Race Unknown Ethnic Group Unknown Author Author , AURELIA DEL VALLE Address Unknown Phone Immunization No patient found.
--- OUTSIDE RECORDS SUMMARY | 2016-11-22 19:27 | External Medical Summary Rpt | CCD ---
Author Author [facility] Address Unknown Phone Unavailable Purpose Continuity of Care Document - through 2016
--- OUTSIDE RECORDS SUMMARY | 2016-11-22 19:27 | External Medical Summary Rpt | CCD ---
Author Author , ELIGIO Organization ELIGIO Address Unknown Phone [email or web address] Care Team Providers Care Business Unit Director Name Role Phone Anne Traore APRN, Unavailable Unavailable Anne Husain MD, Unavailable Unavailable Harinder Husain MD Purpose Continuity of Care Document - 05-03-2012 through 2016 Problems Code Diagnosis DOS Provider Status [id number] Headache [facility] [id number] Cervicogeni [facility] 401.9 [facility]-induce [facility] [id number] Anxiety [facility] 729.82 Leg cramp [facility] 780.2 Syncope [facility] I10 [facility] I95.9 HYPOTENSION , UNSPECIFIED M79.671 PAIN IN RIGHT FOOT R07.9 CHEST PAIN, UNSPECIFIED R42 DIZZINESS AND GIDDINESS W19.XXXA UNSPECIFIED FALL, INITIAL ENCOUNTER Z01.818 ENCOUNTER FOR OTHER PREPROCEDUR AL EXAMINATION 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 Allergies, Adverse Reactions, Alerts Type Drug Allergy Adverse Reaction to Substance Substance Reaction Severity No Known Allergies - Unknown Mild Nka Medications Na ND Rx Da Fi Fi Am Da Di Ph RX Ph St me C No te ll ll ou ys ag ar # ys at rm s nt no ma ic us Or Da si cy ia de te s n re d PA 00 03 0 No CE 24 -2 RO 50 6- Lo NE 14 20 ng 70 13 er 20 1 0 Ac MG ti ve TA BL ET 63 03 0 No PI 73 -2 RI 90 6- Lo N 43 20 ng 81 40 13 er 1 MG Ac ti CH ve EW AB LE TA BL ET PL 63 03 0 No AV 65 -2 IX 31 6- Lo 17 20 ng 75 10 13 er 3 MG Ac ti TA ve BL ET AM 51 03 0 No LO 07 -2 DI 90 6- Lo PI 45 20 ng NE 12 13 er 0 BE Ac SY ti LA ve TE 5 MG TA B SO 00 03 0 No DI 40 -2 UM 97 5- Lo 98 20 ng CH 30 13 er LO 9 RI Ac DE ti ve 0. 9% SO DANAE TI ON Fe 00 03 1 No rr 18 -2 ou 24 5- Lo s 02 20 ng Johnson 88 13 er lf 9 at Ac e ti 32 ve 5M G Ta bl et RI 50 03 1 No SP 45 -2 ER 80 5- Lo DA 30 20 ng L 20 13 er 0. 1 5 Ac MG ti ve TA BL ET CL 51 03 1 No ON 07 -2 ID 90 5- Lo IN 29 20 ng E 92 13 er HC 0 L Ac 0. ti 1 ve MG TA BL ET Po 00 03 1 No ta 24 -2 ss 50 5- Lo iu 05 20 ng m 80 13 er Ch 1 lo Ac ri ti de ve 20 ME Q Ta bl e Vital Signs 05-04-2012 17:45 Name Value Interpretat Reference Comment ion Range Body 98.4 [degF] Temperature BP 79 mm[Hg] Diastolic BP Systolic 161 mm[Hg] Heart 70 /min Rate/Pulse Respiratory 20 /min Rate 05-04-2012 15:20 Name Value Interpretat Reference Comment ion Range O2% 99 % 05-03-2012 14:10 Name Value Interpretat Reference Comment ion Range Height 182.88 cm Weight 106.397 kg Measured 05-03-2012 10:08 Name Value Interpretat Reference Comment ion Range Body 98.0 [degF] Temperature BP 51 mm[Hg] Diastolic BP Systolic 91 mm[Hg] Heart 56 /min Rate/Pulse O2% 99 % Respiratory 20 /min Rate Weight 0 [oz_av] Measured Results Labs Lab Lab Date Result Refere Interp Status Commen Order Detail nces retati t Range on Urinalysis dipstick W Reflex Microscopic panel in Urine (11-21-2016 10:55) Bacteri 4+ O complet a 017 ed [Presen 10:55 ce] in Urine sedimen t by Light microsc opy Erythro 20-50 0 complet cytes 017 ed [Presen 10:55 ce] in Urine sedimen t by Light microsc opy Epithel 10-13-2 3-5 OCC complet ial 017 ed cells.s 10:55 quamous [Presen ce] in Urine sedimen t by Microsc opy high power field Leukocy 20-50 O complet kelley 017 wbc/hpf ed [#/volu 10:55 me] in Urine Urinalysis dipstick W Reflex Microscopic panel in Urine (11-21-2016 10:55) Appeara TURBID CLEAR complet nce of 017 ed Urine 10:55 Bilirub NEGATIV NEG complet in 017 E ed [Presen 10:55 ce] in Urine by Test strip Erythro 3+ NEG Abnorma complet cytes 017 l ed [Presen 10:55 ce] in Urine Color DK YELLOW complet of 017 YELLOW ed Urine 10:55 Ketones NEGATIV NEG complet 017 E ed [Presen 10:55 ce] in Urine by Automat ed test strip Mucus 1+ NEG Abnorma complet [Presen 017 l ed ce] in 10:55 Urine sedimen t by Light microsc opy Nitrite POSITIV NEG Abnorma complet 017 E l ed [Presen 10:55 ce] in Urine by Test strip Urobili 4.0 NEG complet nogen 017 ed [Presen 10:55 ce] in Urine by Test strip Differential panel, method unspecified - (11-21-2016 10:50) Anisocy 1+ complet tosis 017 ed [Presen 10:50 ce] in Blood Hypochr 1+ complet omia 017 ed [Presen 10:50 ce] in Blood LYMPH 6 % 10% - Low complet 017 50% ed 10:50 Platele NORMAL complet ts 017 ed [Presen 10:50 ce] in Blood by Light microsc opy Urinalysis dipstick W Reflex Microscopic panel in Urine (11-07-2016) Bacteri 2+ O complet a 017 ed [Presen ce] in Urine sedimen t by Light microsc opy Calcium 2+ NONE complet 017 ed oxalate crystal s [Presen ce] in Urine sedimen t by Light microsc opy Hyaline 3-5 NONE complet casts 017 ed [Presen ce] in Urine sedimen t by Light microsc opy Erythro OCC 0 complet cytes 017 ed [Presen ce] in Urine sedimen t by Light microsc opy Epithel OCC OCC complet ial 017 ed cells.s quamous [Presen ce] in Urine sedimen t by Microsc opy high power field Leukocy 10-20 O complet kelley 017 wbc/hpf ed [#/volu me] in Urine Urinalysis dipstick W Reflex Microscopic panel in Urine (11-07-2016) Appeara SL CLEAR complet nce of 017 CLOUDY ed Urine Bilirub NEGATIV NEG complet in 017 E ed [Presen ce] in Urine by Test strip Erythro TRACE-I NEG complet cytes 017 NTACT ed [Presen ce] in Urine Color YELLOW YELLOW complet of 017 ed Urine Ketones NEGATIV NEG complet 017 E ed [Presen ce] in Urine by Automat ed test strip Mucus TRACE NEG Abnorma complet [Presen 017 l ed ce] in Urine sedimen t by Light microsc opy Nitrite NEGATIV NEG complet 017 E ed [Presen ce] in Urine by Test strip Urobili 0.2 NEG complet nogen 017 ed [Presen ce] in Urine by Test strip Urinalysis dipstick W Reflex Microscopic panel in Urine (10-13-2016 05:15) Bacteri 1+ O complet a 017 ed [Presen 05:15 ce] in Urine sedimen t by Light microsc opy Hyaline 3-5 NONE complet casts 017 ed [Presen 05:15 ce] in Urine sedimen t by Light microsc opy Leukocy 3-5 O complet kelley 017 wbc/hpf ed [#/volu 05:15 me] in Urine Urinalysis dipstick W Reflex Microscopic panel in Urine (10-13-2016 05:15) Appeara 09-04-2 CLEAR CLEAR complet nce of 017 ed Urine 05:15 Bilirub --2 NEGATIV NEG complet in 017 E ed [Presen 05:15 ce] in Urine by Test strip Erythro 10-13- NEGATIV NEG complet cytes 017 E ed [Presen 05:15 ce] in Urine Color 10-13-2 YELLOW YELLOW complet of 017 ed Urine 05:15 Ketones 10-13-2 NEGATIV NEG complet 017 E ed [Presen 05:15 ce] in Urine by Automat ed test strip Mucus NEGATIV NEG complet [Presen 017 E ed ce] in 05:15 Urine sedimen t by Light microsc opy Nitrite NEGATIV NEG complet 017 E ed [Presen 05:15 ce] in Urine by Test strip Urobili 10-13-2 0.2 NEG complet nogen 017 ed [Presen 05:15 ce] in Urine by Test strip URINALYSIS/COMPLETE (05-04-2012 09:10) URINE 05-04-2 YELLOW YELLOW complet COLOR 013 ed 09:10 URINE --2 CLEAR CLEAR complet APPEARA 013 ed NCE 09:10 URINE -26-2 NEGATIV NEG complet GLUCOSE 013 E ed - 09:10 DIPSTIC K URINE -26-2 NEGATIV NEG complet BILIRUB 013 E ed IN - 09:10 DIPSTIC K URINE -26-2 NEGATIV NEG complet KETONE 013 E mg/dL ed 09:10 URINE -26-2 1.020 1.005-1 complet SPECIFI 013 UNK .030 ed C 09:10 GRAVITY URINE -26-2 NEGATIV NEG complet BLOOD 013 E ed 09:10 URINE -26-2 6.0 UNK 5.0-8.5 complet PH 013 ed 09:10 URINE 03-26-2 NEGATIV NEG complet PROTEIN 013 E mg/dL ed - 09:10 DIPSTIC K URINE 03-26-2 0.2 NEG complet UROBILI 013 E.U./dL ed NOGEN - 09:10 DIPSTIC K URINE 03-26-2 NEGATIV NEG complet NITRATE 013 E ed - 09:10 DIPSTIC K URINE 03-26-2 NEGATIV NEG complet LEUK 013 E ed ESTERAS 09:10 E URINE 03-26-2 OCC 0 complet RBC 013 rbc/hpf ed 09:10 URINE OCC OCC complet SQUAMOU 013 #/hpf ed S CELLS 09:10 BASIC METABOLIC PANEL (05-04-2012 06:30) Glucose 92 74-106 complet 013 mg/dL ed Bld-mCn 06:30 c BUN 17 7-18 complet Bld-mCn 013 mg/dL ed c 06:30 Creat 1.1 0.8-1.3 complet SerPl-m 013 mg/dL ed Cnc 06:30 ESTIMAT 95 50-200 complet ED 013 ML/MIN ed CREATIN 06:30 INE CLEARAN CE GFR 66 Greater complet (ESTIMA 013 ML/MIN than ed ALFA) 06:30 60 Sodium 141 136-145 complet SerPl-s 013 mmoL/L ed Cnc 06:30 Potassi 3.4 3.5-5.1 complet um 013 mmoL/L ed SerPl-s 06:30 Cnc Chlorid 108 98-107 complet e 013 mmoL/L ed SerPl-s 06:30 Cnc CO2 27 21.0-32 complet SerPl-s 013 mmoL/L .0 ed Cnc 06:30 Calcium 7.9 8.5-10. complet 013 mg/dL 1 ed SerPl-m 06:30 Cnc CBC with AUTO DIFF (05-04-2012 06:30) WBC # 05-04-2 4.6 4.8-10. complet Bld 013 K/MM3 8 ed Auto 06:30 RBC # 05-04-2 3.75 4.6-6.2 complet Bld 013 M/mm3 ed Auto 06:30 Hgb 11.3 14.1-18 complet Bld-mCn 013 g/dL .0 ed c 06:30 Hct Fr 34.5 % 42.0-52 complet Bld 013 .0 ed 06:30 MCV RBC 92.2 fl 82.2-97 complet 013 .8 ed 06:30 MCH RBC 30.2 pg 27-31.2 complet Qn 013 ed Auto 06:30 MEAN 03-26-2 32.8 31.8-35 complet CORPUSC 013 g/dl .4 ed ULAR 06:30 HGB CONC RDW RBC 05-04-2 16.2 % 11.5-17 complet Auto 013 .5 ed 06:30 Platele -26-2 244 142-424 complet t Bld 013 K/mm3 ed Ql 06:30 Manual MEAN 05-04-2 7.2 fl 7.4-10. complet PLATELE 013 4 ed T 06:30 VOLUME Granulo 05-04-2 70.0 % 37.0-80 complet cytes 013 .0 ed Fr Bld 06:30 Auto LYMPH % 05-04-2 22.6 % 10-50 complet 013 ed 06:30 Monocyt 05-04-2 6.1 % 1.7-9.3 complet es Fr 013 ed Bld 06:30 Auto Eosinop --2 0.8 % 0.1-12. complet hil Fr 013 0 ed Bld 06:30 Auto Basophi 05-04-2 0.5 % 0.1-2.0 complet ls Fr 013 ed Bld 06:30 Auto Granulo -26-2 3.2 1.3-8.0 complet cytes # 013 K/mm3 ed Bld 06:30 Auto Lymphoc 05-04-2 1.0 0.7-4.5 complet ytes Fr 013 K/mm3 ed Bld 06:30 Auto Monocyt --2 0.3 0.1-1.0 complet es # 013 K/mm3 ed Bld 06:30 Auto Eosinop -26-2 0.0 0.0-0.4 complet hil # 013 K/mm3 ed Bld 06:30 Auto Basophi 03-26-2 0.0 0-0.2 complet ls # 013 K/MM3 ed Bld 06:30 Auto COMPREHENSIVE METABOLIC PANEL (05-03-2012 10:30) Glucose 05-03- 113 74-106 complet 013 mg/dL ed Bld-mCn 10:30 c BUN 05-03-2 22 7-18 complet Bld-mCn 013 mg/dL ed c 10:30 Creat 05-03-2 1.4 0.8-1.3 complet SerPl-m 013 mg/dL ed Cnc 10:30 GFR 05-03-2 50 Greater complet (ESTIMA 013 ML/MIN than ed ALFA) 10:30 60 Sodium 05-03- 140 136-145 complet SerPl-s 013 mmoL/L ed Cnc 10:30 Potassi 05-03-2 4.1 3.5-5.1 complet um 013 mmoL/L ed SerPl-s 10:30 Cnc Chlorid 05-03- 107 98-107 complet e 013 mmoL/L ed SerPl-s 10:30 Cnc CO2 05-03-2 28 21.0-32 complet SerPl-s 013 mmoL/L .0 ed Cnc 10:30 Calcium 05-03-2 7.9 8.5-10. complet 013 mg/dL 1 ed SerPl-m 10:30 Cnc Prot 05-03-2 5.4 6.4-8.2 complet SerPl-m 013 gm/dL ed Cnc 10:30 Albumin 05-03-2 2.8 3.4-5.0 complet 013 gm/dL ed SerPl-m 10:30 Cnc Globuli 05-03-2 2.6 1.3-3.2 complet n 013 gm/dL ed Ser-mCn 10:30 c Albumin 05-03-2 1.1 UNK 1.1-1.8 complet /Glob 013 ed SerPl-m 10:30 Rto Bilirub 05-03-2 0.8 0.2-1.0 complet 013 mg/dL ed SerPl-m 10:30 Cnc AST 05-03-2 19 U/L 15-37 complet SerPl-c 013 ed Cnc 10:30 ALT 05-03-2 37 U/L 30-65 complet SerPl-c 013 ed Cnc 10:30 ALP 05-03-2 144 U/L 50-136 complet SerPl-c 013 ed Cnc 10:30 BNP Bld-mCnc (05-03-2012 10:30) BNP 05-03-2 44 0-100 complet Bld-mCn 013 pg/mL ed c 10:30 CBC with AUTO DIFF (05-03-2012 10:30) WBC # 03-25-2 6.3 4.8-10. complet Bld 013 K/MM3 8 ed Auto 10:30 RBC # 05-03-2 3.82 4.6-6.2 complet Bld 013 M/mm3 ed Auto 10:30 Hgb 03-25-2 11.4 14.1-18 complet Bld-mCn 013 g/dL .0 ed c 10:30 Hct Fr 03-25-2 35.2 % 42.0-52 complet Bld 013 .0 ed 10:30 MCV RBC 03-25-2 92.2 fl 82.2-97 complet 013 .8 ed 10:30 MCH RBC 03-25-2 29.8 pg 27-31.2 complet Qn 013 ed Auto 10:30 MEAN 03-25-2 32.4 31.8-35 complet CORPUSC 013 g/dl .4 ed ULAR 10:30 HGB CONC RDW RBC -25-2 16.2 % 11.5-17 complet Auto 013 .5 ed 10:30 Platele 03-25-2 263 142-424 complet t Bld 013 K/mm3 ed Ql 10:30 Manual MEAN 03-25-2 7.1 fl 7.4-10. complet PLATELE 013 4 ed T 10:30 VOLUME Granulo 03-25-2 80.3 % 37.0-80 complet cytes 013 .0 ed Fr Bld 10:30 Auto LYMPH % 03-25-2 12.6 % 10-50 complet 013 ed 10:30 Monocyt 03-25-2 6.2 % 1.7-9.3 complet es Fr 013 ed Bld 10:30 Auto Eosinop 03-25-2 0.2 % 0.1-12. complet hil Fr 013 0 ed Bld 10:30 Auto Basophi 03-25-2 0.7 % 0.1-2.0 complet ls Fr 013 ed Bld 10:30 Auto Granulo 03-25-2 5.0 1.3-8.0 complet cytes # 013 K/mm3 ed Bld 10:30 Auto Lymphoc 03-25-2 0.8 0.7-4.5 complet ytes Fr 013 K/mm3 ed Bld 10:30 Auto Monocyt 03-25-2 0.4 0.1-1.0 complet es # 013 K/mm3 ed Bld 10:30 Auto Eosinop 03-25-2 0.0 0.0-0.4 complet hil # 013 K/mm3 ed Bld 10:30 Auto Basophi 03-25-2 0.0 0-0.2 complet ls # 013 K/MM3 ed Bld 10:30 Auto Encounters Encounter Start End Date Code Location Performer Type Date Inpatient FRANCIE Husain ([place]) 3 10:17 3 17:50 [facility]
--- OUTSIDE RECORDS SUMMARY | 2016-11-22 19:27 | External Medical Summary Rpt | CCD ---
Author Author , ELIGIO Organization ELIGIO Address Unknown Phone [email or web address] Care Team Providers Care Set Up Machinist Name Role Phone Anne Traore APRN, Unavailable Unavailable Anne Husain MD, Unavailable Unavailable Harinder Husain MD Purpose Continuity of Care Document - 05-03-2012 through 2016 Problems Code Diagnosis DOS Provider Status [id number] Headache [facility] [id number] Cervicogeni [facility] 401.9 [facility]ential [place] [facility] 458.8 [facility]-ind[facility] [id number] Anxiety [facility] 729.82 Leg cramp [facility] 780.2 Syncope [facility] I10 ESSENTIAL (PRIMARY) [facility] I95.9 HYPOTENSION , UNSPECIFIED M79.671 PAIN IN RIGHT FOOT R07.9 CHEST PAIN, UNSPECIFIED R42 DIZZINESS AND GIDDINESS W19.XXXA UNSPECIFIED FALL, INITIAL ENCOUNTER Z01.818 ENCOUNTER FOR OTHER PREPROCEDUR AL EXAMINATION 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 9% SO ADNAE TI ON Fe 00 03 1 No [...] [place]ANCIE Husain ([place]) 3 10:17 3 17:50 [facility]
--- OUTSIDE RECORDS SUMMARY | 2016-11-22 19:28 | External Medical Summary Rpt ---
Author Author ELIG[employer] Coleman, [employer] Address Unknown Phone Unavailable Results Lactate [Moles/volume] in Blood Observa Value Referen Units Interpr Notes Date tion ce etation Range Lactate 0.4 - 2.0 mmol/L Normal No Nov 21 [Moles/vo informati 2017 lume] in on in 11:40 AM Blood source data Urinalysis dipstick W Reflex Microscopic panel in Urine Observa Value Referen Units Interpr Notes Date tion ce etation Range Appeara TURBID CLEAR No No No Nov 21 nce of informa informa informa 2016 Urine tion in tion in tion in 10:55 source source source AM data data data Bacteri 4+ O No No No Nov 21 a informa informa informa 2016 [Presen tion in tion in tion in 10:55 ce] in source source source AM Urine data data data sedimen t by Light microsc opy Bilirub NEGATIV NEG No No No Nov 21 in E informa informa informa 2016 [Presen tion in tion in tion in 10:55 ce] in source source source AM Urine data data data by Test strip Erythro 3+ NEG No Abnorma No Nov 21 cytes informa l informa 2016 [Presen tion in tion in 10:55 ce] in source source AM Urine data data Color DK YELLOW No No No Nov 21 of YELLOW informa informa informa 2016 Urine tion in tion in tion in 10:55 source source source AM data data data Glucose NEG No No No Nov 21 [Mass/vol informati informati informati 2016 ume] in on in on in on in 10:55 AM Urine by source source source Test data data data strip Ketones NEGATIV NEG mg/dL No No Nov 21 E informa informa 2016 [Presen tion in tion in 10:55 ce] in source source AM Urine data data by Automat ed test strip Mucus 1+ NEG No Abnorma No Nov 21 [Presen informa l informa 2016 ce] in tion in tion in 10:55 Urine source source AM sedimen data data t by Light microsc opy Nitrite POSITIV NEG No Abnorma No Nov 21 E informa l informa 2016 [Presen tion in tion in 10:55 ce] in source source AM Urine data data by Test strip pH of 5.0 - 8.5 No Normal No Nov 21 Urine informati informati 2017 on in on in 10:55 AM source source data data Protein NEG mg/dL High No Nov 21 [Mass/vol informati 2017 ume] in on in 10:55 AM Urine by source Automated data test strip Erythro 20-50 0 rbc/hpf No No Nov 21 cytes informa informa 2016 [Presen tion in tion in 10:55 ce] in source source AM Urine data data sedimen t by Light microsc opy Specific 1.005 - No Normal No Nov 21 gravity 1.030 informati informati 2016 of Urine on in on in 10:55 AM source source data data Epithel 3-5 OCC #/hpf No No Nov 21 ial informa informa 2017 cells.s tion in tion in 10:55 quamous source source AM data data [Presen ce] in Urine sedimen t by Microsc opy high power field Urobili 4.0 NEG E.U./dL No No Nov 21 nogen informa informa 2016 [Presen tion in tion in 10:55 ce] in source source AM Urine data data by Test strip Leukocy [20 O wbc/hpf No No Nov 21 kelley wbc/hpf informa informa 2016 [#/volu ; 50 tion in tion in 10:55 me] in wbc/hpf source source AM Urine ] data data Urinalysis dipstick W Reflex Microscopic panel in Urine Observa Value Referen Units Interpr Notes Date tion ce etation Range Appeara TURBID CLEAR No No No Nov 21 nce of informa informa informa 2016 Urine tion in tion in tion in 10:55 source source source AM data data data Bilirub NEGATIV NEG No No No Nov 21 in E informa informa informa 2016 [Presen tion in tion in tion in 10:55 ce] in source source source AM Urine data data data by Test strip Erythro 3+ NEG No Abnorma No Nov 21 cytes informa l informa 2016 [Presen tion in tion in 10:55 ce] in source source AM Urine data data Color DK YELLOW No No No Nov 21 of YELLOW informa informa informa 2016 Urine tion in tion in tion in 10:55 source source source AM data data data Glucose NEG No No No Nov 21 [Mass/vol informati informati informati 2016 ume] in on in on in on in 10:55 AM Urine by source source source Test data data data strip Ketones NEGATIV NEG mg/dL No No Nov 21 E informa informa 2016 [Presen tion in tion in 10:55 ce] in source source AM Urine data data by Automat ed test strip Mucus 1+ NEG No Abnorma No Nov 21 [Presen informa l informa 2016 ce] in tion in tion in 10:55 Urine source source AM sedimen data data t by Light microsc opy Nitrite POSITIV NEG No Abnorma No Nov 21 E informa l informa 2016 [Presen tion in tion in 10:55 ce] in source source AM Urine data data by Test strip pH of 5.0 - 8.5 No Normal No Nov 21 Urine informati informati 2016 on in on in 10:55 AM source source data data Protein NEG mg/dL High No Nov 21 [Mass/vol informati 2016 ume] in on in 10:55 AM Urine by source Automated data test strip Specific 1.005 - No Normal No Nov 21 gravity 1.030 informati inform2016 of Urine on in on in 10:55 AM source source data data Urobili 4.0 NEG E.U./dL No No Nov 21 nogen informa informa 2016 [Presen tion in tion in 10:55 ce] in source source AM Urine data data by Test strip CBC W Auto Differential panel in Blood Observa Value Referen Units Interpr Notes Date tion ce etation Range Basophils 0 - 0.2 K/MM3 Normal No Nov 212016 [#/volume on in 10:50 AM ] in source Blood by data Automated count Basophils 0.1 - 2.0 % Normal No Nov 21 /100 inform 2017 leukocyte on in 10:50 AM s in source Blood by data Automated count Eosinophi 0.0 - 0.4 K/mm3 Normal No Nov 21 ls informati 2017 [#/volume on in 10:50 AM ] in source Blood by data Automated count Eosinophi 0.1 - % Normal No Nov 21 ls/100 12.0 inform2016 leukocyte on in 10:50 AM s in source Blood by data Automated count Granulocy 1.3 - 8.0 K/mm3 High No Nov 21 kelley inform2016 [#/volume on in 10:50 AM ] in source Blood by data Automated count Granulocy 37.0 - % High No Nov 21 kelley/100 80.0 inform2016 leukocyte on in 10:50 AM s in source Blood by data Automated count Hematocri 42.0 - % Low No Nov 21 t [Volume 52.0 informati 2016 on in 10:50 AM Fraction] source of Blood data Hemoglobi 14.1 - g/dL Low No Nov 21 n 18.0 2016 [Mass/vol on in 10:50 AM ume] in source Blood data Lymphocyt 0.7 - 4.5 K/mm3 Normal No Nov 21 es 2016 [#/volume on in 10:50 AM ] in source Unspecifi data ed specimen by Automated count Lymphocyt 10 - 50 % Low No Nov 21 es 2016 [#/volume on in 10:50 AM ] in source Unspecifi data ed specimen by Automated count Erythrocy 27 - 31.2 pg Low No Nov 21 te mean 2016 corpuscul on in 10:50 AM ar source hemoglobi data n [Entitic mass] Erythrocy 31.8 - g/dl Low No Nov 21 te mean 35.4 2016 corpuscul on in 10:50 AM ar source hemoglobi data n concentra tion [Mass/vol ume] by Automated count Erythrocy 82.2 - fl Normal No Nov 21 te mean 97.8 2016 corpuscul on in 10:50 AM ar volume source [Entitic data volume] by Automated count Monocytes 0.1 - 1.0 K/mm3 Normal No Nov [id number] [#/volume on in 10:50 AM ] in source Blood by data Automated count Monocytes 1.7 - 9.3 % Normal No Nov 21 / inform2016 leukocyte on in 10:50 AM s in source Blood by data Automated count Platelet 7.4 - fl Low No Nov 21 mean 10.4 inform2016 volume on in 10:50 AM [Entitic source volume] data in Blood by Automated count Platelets 142 - 424 K/mm3 No No Nov 21 informati informati 2016 [#/volume on in on in 10:50 AM ] in source source Blood data data Erythrocy 4.6 - 6.2 M/mm3 Low No Nov 21 kelley 2016 [#/volume on in 10:50 AM ] in source Amniotic data fluid Erythrocy 11.5 - % Normal No Nov 21 te 17.5 2016 distribut on in 10:50 AM ion width source [Entitic data volume] by Automated count Leukocyte 4.8 - K/MM3 High No Nov 21 s 10.8 inform2016 [#/volume on in 10:50 AM ] in source Blood data Differential panel, method unspecified - Observa Value Referen Units Interpr Notes Date tion ce etation Range Anisocy 1+ No No No No Nov 21 tosis informa informa informa informa 2016 [Presen tion in tion in tion in tion in 10:50 ce] in source source source source AM Blood data data data data Neutrophi 0 - 8 % Normal No Nov 21 ls.band 2016 form/100 on in 10:50 AM leukocyte source s in data Blood by Automated count Eosinophi 0 - 3 % Normal No Nov 21 ls/100 2016 leukocyte on in 10:50 AM s in source Blood by data Manual count Hypochr 1+ No No No No Nov 21 omia informa informa informa informa 2016 [Presen tion in tion in tion in tion in 10:50 ce] in source source source source AM Blood data data data data LYMPH 6 10 - 50 % Low No Nov 21 inform2016 tion in 10:50 source AM data Monocytes 2 - 9 % Normal No Nov 21 /100 2016 leukocyte on in 10:50 AM s in source Blood by data Automated count Platele NORMAL No No No No Nov 21 ts informa informa informa informa 2016 [Presen tion in tion in tion in tion in 10:50 ce] in source source source source AM Blood data data data data by Light microsc opy Neutrophi 42 - 76 % High No Nov 21 ls 2016 [#/volume on in 10:50 AM ] in source Blood by data Automated count Cells No #CELLS No No Oct 13 Counted informati informati informati 2016 Total [#] on in on in on in 10:50 AM in Blood source source source data data data Comprehensive metabolic 2000 panel in Serum or Plasma Observa Value Referen Units Interpr Notes Date tion ce etation Range Albumin/G 1.1 - 1.8 No Low No Nov 13 lobulin informati informati 2016 [Mass on in on in 10:50 AM ratio] in source source Serum or data data Plasma Albumin 3.4 - 5.0 gm/dL Low No Nov 21 [Mass/vol informati 2016 ume] in on in 10:50 AM Serum or source Plasma data Alkaline 46 - 116 U/L High No Nov 21 phosphata informati 2016 se on in 10:50 AM [Enzymati source c data activity/ volume] in Serum or Plasma Bilirubin 0.2 - 1.0 mg/dL High No Nov 21 .total informati 2016 [Mass/vol on in 10:50 AM ume] in source Serum or data Plasma Urea 7 - 18 mg/dL High No Nov 21 nitrogen informati 2016 [Mass/vol on in 10:50 AM ume] in source Serum or data Plasma Calcium 8.5 - mg/dL Normal No Nov 21 [Mass/vol 10.1 informati 2016 ume] in on in 10:50 AM Serum or source Plasma data Chloride 98 - 107 mmoL/L Normal No Nov 21 [Moles/vo informati 2016 lume] in on in 10:50 AM Serum or source Plasma data Carbon 21.0 - mmoL/L Normal No Nov 21 dioxide, 32.0 informati 2016 total on in 10:50 AM [Moles/vo source lume] in data Serum or Plasma Creatinin 0.70 - mg/dL High No Nov 21 e 1.30 informati 2016 [Mass/vol on in 10:50 AM ume] in source Serum or data Plasma Creatinin 50 - 200 ML/MIN Normal No Nov 21 e renal informati 2016 clearance on in 10:50 AM source predicted data by Cockcroft -Gault formula Estimated >60 ML/MIN No REFERENCE Nov 13 informati RANGE: 2017 glomerula on in >60 10:50 AM r source ML/MIN/1. filtratio data 73 SQUARE n rate METERSIf (GF this patient is -A merican, then multiply theresult by 1.210. Globulin 1.3 - 3.2 gm/dL High No Nov 21 [Mass/vol informati 2016 ume] in on in 10:50 AM Serum source data Glucose 74 - 106 mg/dL High No Nov 21 [Mass/vol informati 2016 ume] in on in 10:50 AM Serum or source Plasma data Potassium 3.5 - 5.1 mmoL/L Normal No Nov 21 inform2016 [Moles/vo on in 10:50 AM lume] in source Serum or data Plasma Sodium 136 - 145 mmoL/L Low No Nov 21 [Moles/vo informati 2016 lume] in on in 10:50 AM Serum or source Plasma data Aspartate 15 - 37 U/L High No Nov 21 inform2016 aminotran on in 10:50 AM sferase source [Enzymati data c activity/ volume] in Serum or Plasma Alanine 12 - 78 U/L Normal No Nov 21 aminotran inform2016 sferase on in 10:50 AM [Enzymati source c data activity/ volume] in Serum or Plasma Protein 6.4 - 8.2 gm/dL High No Nov 21 [Mass/vol informati 2016 ume] in on in 10:50 AM Serum or source Plasma data Urinalysis dipstick W Reflex Microscopic panel in Urine Observa Value Referen Units Interpr Notes Date tion ce etation Range Appeara SL CLEAR No No No Nov 07 nce of CLOUDY informa informa informa 2017 Urine tion in tion in tion in source source source data data data Bacteri 2+ O No No No Nov 07 a informa informa informa 2016 [Presen tion in tion in tion in ce] in source source source Urine data data data sedimen t by Light microsc opy Bilirub NEGATIV NEG No No No Nov 07 in E informa informa informa 2016 [Presen tion in tion in tion in ce] in source source source Urine data data data by Test strip Erythro TRACE-I NEG No No No Nov 07 cytes NTACT informa informa informa 2016 [Presen tion in tion in tion in ce] in source source source Urine data data data Calcium 2+ NONE #/hpf No No Nov 07 informa informa 2017 oxalate tion in tion in source source crystal data data s [Presen ce] in Urine sedimen t by Light microsc opy Color YELLOW YELLOW No No No Nov 07 of informa informa informa 2017 Urine tion in tion in tion in source source source data data data Glucose NEG No No No Nov 07 [Mass/vol informati informati informati 2017 ume] in on in on in on in Urine by source source source Test data data data strip Hyaline 3-5 NONE #/lpf No No Nov 07 casts informa informa 2016 [Presen tion in tion in ce] in source source Urine data data sedimen t by Light microsc opy Ketones NEGATIV NEG mg/dL No No Nov 07 E informa informa 2017 [Presen tion in tion in ce] in source source Urine data data by Automat ed test strip Mucus TRACE NEG No Abnorma No Nov 07 [Presen informa l informa 2016 ce] in tion in tion in Urine source source sedimen data data t by Light microsc opy Nitrite NEGATIV NEG No No No Nov 07 E informa informa informa 2016 [Presen tion in tion in tion in ce] in source source source Urine data data data by Test strip pH of 5.0 - 8.5 No Normal No Nov 07 Urine informati informati 2017 on in on in source source data data Protein NEG mg/dL No No Nov 07 [Mass/vol informati informati 2016 ume] in on in on in Urine by source source Automated data data test strip Erythro OCC 0 rbc/hpf No No Nov 07 cytes informa informa 2016 [Presen tion in tion in ce] in source source Urine data data sedimen t by Light microsc opy Specific 1.005 - No Normal No Nov 07 gravity 1.030 informati informati 2017 of Urine on in on in source source data data Epithel OCC OCC #/hpf No No Nov 07 ial informa informa 2017 cells.s tion in tion in quamous source source data data [Presen ce] in Urine sedimen t by Microsc opy high power field Urobili 0.2 NEG E.U./dL No No Nov 07 nogen informa informa 2017 [Presen tion in tion in ce] in source source Urine data data by Test strip Leukocy [10 O wbc/hpf No No Nov 07 kel[place] wbc/hpf informa informa 2017 [#/volu ; 20 tion in tion in me] in wbc/hpf source source Urine ] data data Urinalysis dipstick W Reflex Microscopic panel in Urine Observa Value Referen Units Interpr Notes Date tion ce etation Range Appeara SL CLEAR No No No Sep 29 nce of CLOUDY informa informa informa 2017 Urine tion in tion in tion in source source source data data data Bilirub NEGATIV NEG No No No Nov 07 in E informa informa informa 2016 [Presen tion in tion in tion in ce] in source source source Urine data data data by Test strip Erythro TRACE-I NEG No No No Nov 07 cytes NTACT informa informa informa 2016 [Presen tion in tion in tion in ce] in source source source Urine data data data Color YELLOW YELLOW No No No Nov 07 of informa informa informa 2017 Urine tion in tion in tion in source source source data data data Glucose NEG No No No Nov 07 [Mass/vol informati informati informati 2017 ume] in on in on in on in Urine by source source source Test data data data strip Ketones NEGATIV NEG mg/dL No No Nov 07 E informa informa 2016 [Presen tion in tion in ce] in source source Urine data data by Automat ed test strip Mucus TRACE NEG No Abnorma No Nov 07 [Presen informa l informa 2016 ce] in tion in tion in Urine source source sedimen data data t by Light microsc opy Nitrite NEGATIV NEG No No No Nov 07 E informa informa informa 2016 [Presen tion in tion in tion in ce] in source source source Urine data data data by Test strip pH of 5.0 - 8.5 No Normal No Sep Urine informati informati 2017 on in on in source source data data Protein NEG mg/dL No No Sep 29 [Mass/vol informati informati 2017 ume] in on in on in Urine by source source Automated data data test strip Specific 1.005 - No Normal No Sep 29 gravity 1.030 informati informati 2017 of Urine on in on in source source data data Urobili 0.2 NEG E.U./dL No No Nov 07 nogen informa informa 2017 [Presen tion in tion in ce] in source source Urine data data by Test strip Urinalysis dipstick W Reflex Microscopic panel in Urine Observa Value Referen Units Interpr Notes Date tion ce etation Range Appeara CLEAR CLEAR No No No Sep 4 nce of informa informa informa 2017 Urine tion in tion in tion in 5:15 AM source source source data data data Bacteri 1+ O No No No Sep 4 a informa informa informa 2016 [Presen tion in tion in tion in 5:15 AM ce] in source source source Urine data data data sedimen t by Light microsc opy Bilirub NEGATIV NEG No No No Sep 4 in E informa informa informa 2016 [Presen tion in tion in tion in 5:15 AM ce] in source source source Urine data data data by Test strip Erythro NEGATIV NEG No No No Sep 4 cytes E informa informa informa 2016 [Presen tion in tion in tion in 5:15 AM ce] in source source source Urine data data data Color YELLOW YELLOW No No No Sep 4 of informa informa informa 2017 Urine tion in tion in tion in 5:15 AM source source source data data data Glucose NEG No No No Sep 4 [Mass/vol informati informati informati 2017 5:15 ume] in on in on in on in AM Urine by source source source Test data data data strip Hyaline 3-5 NONE #/lpf No No Sep 4 casts informa informa 2016 [Presen tion in tion in 5:15 AM ce] in source source Urine data data sedimen t by Light microsc opy Ketones NEGATIV NEG mg/dL No No Sep 4 E informa informa 2017 [Presen tion in tion in 5:15 AM ce] in source source Urine data data by Automat ed test strip Mucus NEGATIV NEG No No No Sep 4 [Presen E informa informa informa 2016 ce] in tion in tion in tion in 5:15 AM Urine source source source sedimen data data data t by Light microsc opy Nitrite NEGATIV NEG No No No Sep 4 E informa informa informa 2017 [Presen tion in tion in tion in 5:15 AM ce] in source source source Urine data data data by Test strip pH of 5.0 - 8.5 No Normal No Sep 4 Urine informati informati 2017 5:15 on in on in AM source source data data Protein NEG mg/dL No No Sep 4 [Mass/vol informati informati 2017 5:15 ume] in on in on in AM Urine by source source Automated data data test strip Specific 1.005 - No Normal No Sep 4 gravity 1.030 informati informati 2017 5:15 of Urine on in on in AM source source data data Urobili 0.2 NEG E.U./dL No No Sep 4 nogen informa informa 2017 [Presen tion in tion in 5:15 AM ce] in source source Urine data data by Test strip Leukocy [3 O wbc/hpf No No Sep 4 k[place] wbc/hpf informa informa 2017 [#/volu ; 5 tion in tion in 5:15 AM me] in wbc/hpf source source Urine ] data data Urinalysis dipstick W Reflex Microscopic panel in Urine Observa Value Referen Units Interpr Notes Date tion ce etation Range Appeara CLEAR CLEAR No No No Sep 4 nce of informa informa informa 2017 Urine tion in tion in tion in 5:15 AM source source source data data data Bilirub NEGATIV NEG No No No Sep 4 in E informa informa informa 2017 [Presen tion in tion in tion in 5:15 AM ce] in source source source Urine data data data by Test strip Erythro NEGATIV NEG No No No Sep 4 cytes E informa informa informa 2017 [Presen tion in tion in tion in 5:15 AM ce] in source source source Urine data data data Color YELLOW YELLOW No No No Sep 4 of informa informa informa 2017 Urine tion in tion in tion in 5:15 AM source source source data data data Glucose NEG No No No Sep 4 [Mass/vol informati informati informati 2017 5:15 ume] in on in on in on in AM Urine by source source source Test data data data strip Ketones NEGATIV NEG mg/dL No No Sep 4 E informa informa 2017 [Presen tion in tion in 5:15 AM ce] in source source Urine data data by Automat ed test strip Mucus NEGATIV NEG No No No Sep 4 [Presen E informa informa informa 2017 ce] in tion in tion in tion in 5:15 AM Urine source source source sedimen data data data t by Light microsc opy Nitrite NEGATIV NEG No No No Sep 4 E informa informa informa 2016 [Presen tion in tion in tion in 5:15 AM ce] in source source source Urine data data data by Test strip pH of 5.0 - 8.5 No Normal No Sep 4 Urine informati informati 2017 5:15 on in on in AM source source data data Protein NEG mg/dL No No Sep 4 [Mass/vol informati informati 2017 5:15 ume] in on in on in AM Urine by source source Automated data data test strip Specific 1.005 - No Normal No Sep 4 gravity 1.030 informati informati 2017 5:15 of Urine on in on in AM source source data data Urobili 0.2 NEG E.U./dL No No Sep 4 nogen informa informa 2016 [Presen tion in tion in 5:15 AM ce] in source source Urine data data by Test strip
[2016-11-23 03:57] VITALS: BP 139/84
[2016-11-23 07:50] VITALS: BP 122/86
--- NOTE | 2016-11-23 10:51 | ACUTE CARE PROGRESS NOTE (QUA) ---
Progress Notes Subjective Date 11/23/16 Time 1047 Note Patient had a better night last night, was much less agitated. Objective Findings Laboratory Tests 11/22/16 0550: Sodium 137, Potassium 4.6, Chloride 104, Carbon Dioxide 25, BUN 39 H, Creatinine 1.3, Estimated Creat Clear 85, Estimated GFR (MDRD) 54, Glucose 107 H, Calcium 7.7 L, Total Bilirubin 1.0, AST 29, ALT 25, Alkaline Phosphatase 326 H, Total Protein 6.0 L, Albumin 1.5 L, Globulin 4.5 H, Albumin/Globulin Ratio 0.3 L, WBC 10.9 H, RBC 3.62 L, Hgb 9.1 L, Hct 31.1 L, MCV 85.9, RDW 17.4, Plt Count 199, MPV 7.7, Gran % 84.5 H, Gran # 9.2 H, Lymphocytes % 8.3 L, Monocytes % 6.9, Eosinophils % 0.1, Basophils % 0.2, Lymphocytes # 0.9, Monocytes # 0.8, Eosinophils # 0.0, Basophils # 0.0, PUBS MCHC 29.2 L, MCH 25.1 L 11/21/16 1140: Lactic Acid 1.6 11/21/16 1055: Urine Color DK YELLOW, Urine Appearance TURBID, Urine pH 7.5, Ur Specific [place] 1.010, Urine Protein 1+ H, Urine Ketones NEGATIVE, Urine Blood 3+ H, Urine Nitrate POSITIVE H, Urine Bilirubin NEGATIVE, Urine Urobilinogen 4.0, Ur Leukocyte Esterase 1+ H, Urine RBC 20-50, Urine WBC 20-50, Ur Squamous Epith Cells 3-5, Urine Bacteria 4+, Urine Glucose NEGATIVE 11/21/16 1050: Creatine Kinase 32 L, CK-MB (CK-2) Rel Index 1.6, CK and CKMB Interp < 0.5, Troponin I < 0.02 11/21/16 1050: Amylase 41, Lipase 128 11/21/16 1050: Sodium 134 L, Potassium 4.7, Chloride 100, Carbon Dioxide 27, BUN 41 H, Creatinine 1.5 H, Estimated Creat Clear 70, Estimated GFR (MDRD) 46, Glucose 108 H, Calcium 8.7, Total Bilirubin 1.5 H, AST 39 H, ALT 35, Alkaline Phosphatase 405 H, Total Protein 8.4 H, Albumin 2.0 L, Globulin 6.4 H, Albumin/Globulin Ratio 0.3 L, WBC 13.3 H, RBC 4.35 L, Hgb 11.1 L, Hct 37.8 L, MCV 86.9, RDW 17.2, Plt Count 267, MPV 7.3 L, Gran % 88.9 H, Gran # 11.9 H , Total Counted 100, Lymphocytes % 5.5 L, Monocytes % 5.3, Eosinophils % 0.1, Basophils % 0.2, Neutrophils 89 H, Band Neutrophils 2, Lymphocytes (Manual) 6 L, Lymphocytes # 0.7, Monocytes (Manual) 2, Monocytes # 0.7, Eosinophils # 0.0, Eosinophils # (Manual) 1, Basophils # 0.0, Platelet Estimate NORMAL, Hypochromasia 1+, Anisocytosis 1+, PUBS MCHC 29.3 L, MCH 25.5 L Microbiology Date/Time Procedure - Status Source Growth 11/21 114 Anaerobic Blood Culture - COMP BLOOD STAPHYLOCOCCUS AUREUS 11/21 1140 Aerobic Blood Culture - COMP BLOOD STAPHYLOCOCCUS AUREUS 11/21 1140 Anaerobic Blood Culture - COMP BLOOD STAPHYLOCOCCUS AUREUS 11/21 1140 Aerobic Blood Culture - COMP BLOOD STAPHYLOCOCCUS AUREUS 11/21 1055 Urine Culture - COMP URINE CC ESCHERICHIA COLI Vital Signs Date Time Temp Pulse Resp B/P Pulse O2 O2 Flow FiO2 Ox Delivery Rate 11/23 0834 98.2 75 22 122/86 93 11/23 0750 98.2 75 22 122/86 93 ROOM AIR 11/23 0357 99.3 120 22 139/84 95 ROOM AIR 11/22 2355 98.6 114 26 138/76 94 ROOM AIR 11/22 2131 98.2 124 28 115/96 94 11/22 1957 98.2 124 28 115/96 94 ROOM AIR 11/22 1538 97.7 90 20 123/84 94 ROOM AIR 11/22 1133 97.7 105 22 141/83 95 ROOM AIR I&O Past 24 Hrs-ending at 0700 11/23 0700 Intake Total 2752 Output Total Balance 2752 Last VS-Temp:98.2 B/P:122/86 Pulse:75 Resp:22 SaO2:93 ROOM AIR Last weight lbs:261 oz:9 K.643 Method:Bed Scales Exam General appearance: no acute distress Cardiovascular: irregular rate & rhythm Respiratory: clear to auscultation (anterior) Extremities: edema (bilateral lower) Reviewed: lab results (blood & urine Cx abnormal), radiology report (RUQ US c/w cirhhosis&ascities) Assessment/Plan Problem List 1. E. coli UTI Status: Acute 2. Staphylococcus aureus bacteremia without sepsis Status: Acute 3. Acute renal insufficiency Status: Acute 4. Cirrhosis Status: Acute 5. Weakness Status: Acute 6. Liver failure Status: Acute 7. Elevated LFTs Status: Acute 8. Leukocytosis Status: Acute 9. Hyperbilirubinemia Status: Acute 10. Left shoulder pain Status: Acute 11. Essential hypertension Status: Chronic 12. Anemia Status: Chronic 13. Lower extremity edema Status: Chronic 14. Atrial fibrillation Status: Chronic This inpt stay is expected to cross 2 MNs from start of care Yes Comments: Patient has improved, will likely need at least 10 days of antibiotics due to bacteremia, will discuss IV access, possible PICC line tomorrow. at 1059
[2016-11-23 11:47] VITALS: BP 140/87
[2016-11-23 15:39] VITALS: BP 130/70
[2016-11-23 19:51] VITALS: BP 124/78
[2016-11-24] VITALS (8 sets, daily range): BP systolic 111–141; BP diastolic 60–89
[2016-11-24 07:24] LABS: HEMOGLOBIN 9.5 g/dL (14.1-18.0); LYMPH # 1.2 K/mm3 (0.7-4.5); LYMPH % 11.6 % (10-50)
--- NOTE | 2016-11-24 09:09 | ACUTE CARE PROGRESS NOTE (QUA) ---
Progress Notes Subjective Date 11/24/16 Time 0740 Note Family at bedside and state that he is just about the same; did eat breakfast; has been sleeping most of the time patient has stated that he hurts all over Objective Findings Laboratory Tests 11/24/16 0620: Sodium 136, Potassium 4.2, Chloride 106, Carbon Dioxide 22, BUN 39 H, Creatinine 1.1, Estimated Creat Clear 102, Estimated GFR (MDRD) 66, Glucose 112 H, Calcium 7.9 L, Total Bilirubin 1.1 H, AST 42 H, ALT 34, Alkaline Phosphatase 443 H, Total Protein 6.7, Albumin 1.4 L, Globulin 5.3 H, Albumin/ Globulin Ratio 0.3 L, WBC 10.4, RBC 3.70 L, Hgb 9.5 L, Hct 32.3 L, MCV 87.3, RDW 17.1, Plt Count 268, MPV 7.8, Gran % 76.8, Gran # 8.0, Lymphocytes % 11.6, Monocytes % 10.8 H, Eosinophils % 0.5, Basophils % 0.1, Lymphocytes # 1.2, Monocytes # 1.1 H, Eosinophils # 0.1, Basophils # 0.0, PUBS MCHC 29.4 L, MCH 25.6 L Vital Signs Date Time Temp Pulse Resp B/P Pulse O2 O2 Flow FiO2 Ox Delivery Rate 11/24 0738 97.5 68 20 111/60 95 ROOM AIR 11/24 0400 98.0 121 22 140/89 96 ROOM AIR 11/24 0009 98.6 104 24 127/68 96 ROOM AIR 11/24 2111 98.5 98 22 124/78 98 11/23 2109 98.5 98 22 11/23 195 101.9 118 28 124/78 98 ROOM AIR 11/23 1539 97.2 109 22 130/70 96 ROOM AIR 11/23 1147 97.7 117 22 140/87 96 ROOM AIR Current Medications Acetaminophen 0 .STK-MED ONE PO (DCr) Guaifenesin/Dextromethorphan 0 .STK-MED ONE .ROUTE (DC) Acetaminophen 0 .STK-MED ONE PO (DCr) Amlodipine Besylate 2.5 MG DAILY PO Aspirin 81 MG DAILY PO Ceftriaxone Sodium 1 GM 0900 IV Sodium Chloride 50 ML Clopidogrel Bisulfate 75 MG DAILY PO Famotidine 20 MG DAILY PO Guaifenesin/Dextromethorphan 10 ML Q4HP PRN PO Ferrous Sulfate 325 MG BID PO Metoprolol Tartrate 25 MG BID PO Potassium Chloride 20 MEQ TID PO Risperidone 0.5 MG BID PO Acetaminophen 500 MG Q4HP PRN PO (CKDr) Lorazepam 0.5 MG QIDP PRN PO Sodium Chloride 10 ML PRN PRN IV Influenza Virus Vaccine Quadrival 0.5 ML PRN PRN IM Sodium Chloride 1,000 ML .[id number] IV 11/23 1500 11/23 2300 11/24 0700 Intake Total 480 1094 930 Output Total Balance 480 1094 930 Intake, IV 854 930 Intake, Oral 480 240 Output, Stool Patient 262 lb 266 lb Weight Last VS-Temp:97.5 B/P:111/60 Pulse:68 Resp:20 SaO2:95 ROOM AIR Last weight lbs:266 oz:7 K.854 Method:Bed Scales Exam General appearance: no acute distress, lethargic Cardiovascular: irregularly irregular Respiratory: clear to auscultation (bilat anterior and posterior) ABD: no tenderness, bowel sounds present, distended Extremities: bilateral leg edema Skin: scattered ecchymosis on bilateral arms with few abrasions; skin is intact on buttocks Neuro: opens his eyes with stimulation and yells out with turning and sitting up Assessment/Plan Problem List 1. E. coli UTI Status: Acute 2. Staphylococcus aureus bacteremia without sepsis Status: Acute 3. Acute renal insufficiency Status: Acute 4. Cirrhosis Status: Acute 5. Weakness Status: Acute 6. Liver failure Status: Acute 7. Elevated LFTs Status: Acute 8. Leukocytosis Status: Acute 9. Hyperbilirubinemia Status: Acute 10. Left shoulder pain Status: Acute 11. Essential hypertension Status: Chronic 12. Anemia Status: Chronic 13. Lower extremity edema Status: Chronic 14. Atrial fibrillation Status: Chronic Patient condition fair Plan: continue current care This inpt stay is expected to cross 2 MNs from start of care Yes (Anne Traore APRN) Subjective Date 11/24/16 Assessment/Plan Problem List 1. E. coli UTI Status: Acute 2. Staphylococcus aureus bacteremia without sepsis Status: Acute 3. Acute renal insufficiency Status: Acute 4. Cirrhosis Status: Acute 5. Weakness Status: Acute 6. Elevated LFTs Status: Acute 7. Leukocytosis Status: Acute 8. Left shoulder pain Status: Acute 9. Essential hypertension Status: Chronic 10. Anemia Status: Chronic 11. Lower extremity edema Status: Chronic 12. Atrial fibrillation Status: Chronic 13. Ascites Plan: Pt seen examined examined. Not very responsive. Will consult Dr. Lloyd in regard to his cirrhosis and ascites. Continue Rocephin for E. coli UTI and Staph bacteremia. (Harinder Husain MD) at 0908 at [phone]
--- NOTE | 2016-11-24 13:04 | CONSULT NOTE ---
Dr. Lloyd' Consult History: History of Present Illness: Consult for cirrhosis/ascites. Mr. Wu is a 71 year old male with some mental /learning delay. He recently had extensive knee surgery and subsequently and extended rehab at [facility]-way facility. The pt had decline with AMS and was brought to ED at [facility] on the and was found to have E. Coli UTI. He was also found to have positive blood cultures for Staff. The pt had an elevated Alk Phos of >400 as well as marked ascites seen on non-contrast CT. He did have radiology evidence of cirrhosis and spleenomegaly. This was not previously known to PCP. The pt's bilirubin is 1.1 and PTL are 263. The pt has normal ast/alt. He is not able to answer questions completely, however, this is his baseline. He has no known history of ETOH use. He is currently on Rocephin for UTI and additional agents are being added by PCP for positive Staff blood cultures. Past Medical History: Medical History: CAD? No Angina: Yes CO: No Hypertension? Yes Hyperlipidemia? Yes CHF? Yes DVT? No PE? No COPD? No Asthma? No Anemia? Yes GERD? Yes Hernia? No Thyroid Problems? Yes Hypothyroidism? No CVA? No Seizures? No Diabetes? No Renal Insuffiency? No UTI? No Stones? No GB Disease: No Nephritic Syndrome? No Asplenia? No Hepatitis? No Sickle Cell Disease? No Arthritis? No Cataracts? Yes Glaucoma? No MRSA? No TB? No Anxiety? No Depression? No Cancer? No More? Yes Additional hx: 1. SHARKO FOOT 2. AFIB 3. TIA 4. MENTAL RETARDATION Surgical history: Previous Surgery?Y RIGHT KNEE APPY DULCE CATARACTS CARDIAC CATH WITH STENT Medications: Active Scripts Ferrous Sulfate (Ferrous Sulfate 325MG) 325 MG PO BID #30 TAB Ref 4 Prov: 09/04/15 Lovastatin 40 MG PO QHS #30 TAB Ref 3 Prov: 09/04/15 ASPIRIN (Aspirin) 81 MG PO DAILY #30 TABLET Ref 2 Prov: 09/04/15 Reported Medications Clopidogrel Bisulfate (Plavix) 75 MG PO DAILY #30 TAB Ref 2 Metolazone (Metolazone 5MG Tablet) 5 MG PO DAILY Amlodipine Besylate 2.5 MG PO DAILY Cyanocobalamin (Vitamin B-12) (B-12) 500 MCG PO DAILY Famotidine (Pepcid 20MG) 20 MG PO DAILY Metoprolol Tartrate 25 MG PO BID Potassium Chloride (Klor-Con M20) 40 MEQ PO TID OXYCODONE HCL (Oxycodone Hydrochloride) 5 MG PO Q4HP PRN PAIN Acetaminophen (Acetaminophen Extra Strength) 1,000 MG PO Q6HP PRN PAIN CHOLECALCIFEROL (VITAMIN D3) (Vitamin D) 1 TAB PO DAILY Furosemide (Lasix 40MG) 40 MG PO BID Risperidone (Risperdal 0.5 Mg Tablet) 0.5 MG PO BID Lorazepam (Ativan) 0.5 MG PO QID PRN ANXIETY Ezetimibe 10 MG PO QHS Allergies: Coded Allergies: No Known Allergies (07/18/15) Family History: Family history: Postive for: unknown. Social History: Smoking Hx Tobacco: No Smoker: Never Smoker Type: N/A Packs/day: N/A Are you exposed to second hand No Alcohol: Alcohol: No Hx of Drug Use: Drug Use? No Physical Exam: Vital signs: 1ST Vital Signs Result Date Time Pulse Ox 94 11/21 1055 B/P 123/90 11/21 1055 Temp 97.8 11/21 1055 Pulse 103 11/21 1055 Resp 20 11/21 1055 O2 Delivery ROOM AIR 11/21 1511 Exam: General appearance: alert, no acute distress Eyes: normal exam ENT: normal exam Neck: normal inspection Cardiovascular: no JVD, no ectopics, regular rate & rhythm Respiratory: good air movement, normal breath sounds ABD: soft, distended, firm, other ([place]ym[place] generalized ) Extremities: moves all, edema Musculoskeletal: normal exam Skin: dry, intact Neuro: alert, other (mental delay ) Lab data: Labs: Laboratory Tests 11/24/16 0620: Sodium 136, Potassium 4.2, Chloride 106, Carbon Dioxide 22, BUN 39 H, Creatinine 1.1, Estimated Creat Clear 102, Estimated GFR (MDRD) 66, Glucose 112 H, Calcium 7.9 L, Total Bilirubin 1.1 H, AST 42 H, ALT 34, Alkaline Phosphatase 443 H, Total Protein 6.7, Albumin 1.4 L, Globulin 5.3 H, Albumin/ Globulin Ratio 0.3 L, WBC 10.4, RBC 3.70 L, Hgb 9.5 L, Hct 32.3 L, MCV 87.3, RDW 17.1, Plt Count 268, MPV 7.8, Gran % 76.8, Gran # 8.0, Lymphocytes % 11.6, Monocytes % 10.8 H, Eosinophils % 0.5, Basophils % 0.1, Lymphocytes # 1.2, Monocytes # 1.1 H, Eosinophils # 0.1, Basophils # 0.0, PUBS MCHC 29.4 L, MCH 25.6 L Diagnosis(es): 1. E. coli UTI Status: Acute 2. Staphylococcus aureus bacteremia without sepsis Status: Acute 3. Acute renal insufficiency Status: Acute 4. Cirrhosis Status: Acute 5. Weakness Status: Acute 6. Liver failure Status: Acute 7. Elevated LFTs Status: Acute 8. Leukocytosis Status: Acute 9. Hyperbilirubinemia Status: Acute 10. Left shoulder pain Status: Acute 11. Essential hypertension Status: Chronic 12. Anemia Status: Chronic 13. Lower extremity edema Status: Chronic 14. Atrial fibrillation Status: Chronic Plan: 1.) Ascites/ new dx Cirrhosis - given positive blood clultures will order u/s guided paracentesis with Albumin replacement and cytology/gramstain/culture. Will get labs including autoimmune/ viral hepatology markers as well as Alk Phos Isoenzyme/GGT. - If Ammonia elevated recommend pt be started on Lactulose - f/u in office when pt stable for further evaluation of chronic liver condition. (GAGAN DICKEY APRN) Diagnosis(es): 1. E. coli UTI Status: Acute 2. Staphylococcus aureus bacteremia without sepsis Status: Acute 3. Acute renal insufficiency Status: Acute 4. Cirrhosis Status: Acute 5. Weakness Status: Acute 6. Liver failure Status: Acute 7. Elevated LFTs Status: Acute 8. Leukocytosis Status: Acute 9. Hyperbilirubinemia Status: Acute 10. Left shoulder pain Status: Acute 11. Essential hypertension Status: Chronic 12. Anemia Status: Chronic 13. Lower extremity edema Status: Chronic 14. Atrial fibrillation Status: Chronic Plan: Cirrhosis with decompensation and ascites. I would recommend large-volume paracentesis with the repletion of albumin subsequently. I would also begin spironolactone 100 mg daily with sodium restriction. The patient's platelet count is normal. Does have mild anemia. There is no clinical evidence of spontaneous bacterial peritonitis. I would like for him to have additional serologic workup to evaluate for his cholestatic liver disease (elevated alkaline phosphatase/bilirubin) which will include antinuclear antibody, smooth muscle antibody, antimitochondrial antibody, angiotensin-converting enzyme level /MARIANGEL level. I would obtain hepatic fibrotic markers. His ammonia level is low normal. Would consider endoscopy at a later date when he is more clinically stable to exclude esophageal varices. The patient is anemic. (ARIEL LLOYD) at 0429
[2016-11-25] VITALS (8 sets, daily range): BP systolic 130–149; BP diastolic 76–99
--- NOTE | 2016-11-25 08:01 | ACUTE CARE PROGRESS NOTE (QUA) ---
See Addendum Progress Notes Subjective Date 11/25/16 Time 0755 Note Slept well after Toradol; NPO for paracentesis this AM; Did eat well yesterday ; ??UOP Spoke with Radiology and procedure to be done this AM in radiology. Objective Findings Laboratory Tests 11/24/16 1330: GGT 147 H 11/24/16 1330: Ammonia 17 L, PT 12.5 H, INR 1.16 H Vital Signs Date Time Temp Pulse Resp B/P Pulse O2 O2 Flow FiO2 Ox Delivery Rate 11/25 07 97.8 113 20 146/99 98 ROOM AIR 11/25 0400 98.0 100 20 130/76 95 ROOM AIR 11/25 0310 20 11/25 0030 98.0 89 20 141/81 96 ROOM AIR 11/24 2020 98.0 89 20 141/81 96 11/24 1942 98.5 112 20 141/87 95 ROOM AIR 11/24 1536 98.1 117 20 140/77 97 ROOM AIR 11/24 1213 97.8 74 22 123/71 95 ROOM AIR 11/24 1051 97.5 68 20 111/60 95 Current Medications Sodium Chloride 10 ML PRN PRN IV Ketorolac Tromethamine 0 .STK-MED ONE .ROUTE (DC) Ketorolac Tromethamine 30 MG ONCE ONE IV (DC) Acetaminophen 0 .STK-MED ONE PO (DCr) Guaifenesin/Dextromethorphan 0 .STK-MED ONE .ROUTE (DC) Acetaminophen 0 .STK-MED ONE PO (DCr) Amlodipine Besylate 2.5 MG DAILY PO Aspirin 81 MG DAILY PO Ceftriaxone Sodium 1 GM 0900 IV Sodium Chloride 50 ML Clopidogrel Bisulfate 75 MG DAILY PO Famotidine 20 MG DAILY PO Guaifenesin/Dextromethorphan 10 ML Q4HP PRN PO Ferrous Sulfate 325 MG BID PO Metoprolol Tartrate 25 MG BID PO Potassium Chloride 20 MEQ TID PO Risperidone 0.5 MG BID PO Acetaminophen 500 MG Q4HP PRN PO (CKDr) Lorazepam 0.5 MG QIDP PRN PO Sodium Chloride 10 ML PRN PRN IV Influenza Virus Vaccine Quadrival 0.5 ML PRN PRN IM Sodium Chloride 1,000 ML .[id number] IV (DC) 11/24 1500 11/24 2300 11/25 0700 Intake Total 363 926 3094 Output Total 100 Balance 358 002 6968 Intake, IV 1683 Intake, Oral 360 480 Output, Urine 100 Patient 271 lb Weight Last VS-Temp:97.8 B/P:146/99 Pulse:113 Resp:20 SaO2:98 ROOM AIR Last weight lbs:270 oz:9 K.725 Method:Bed Scales Exam General appearance: slept through exam Cardiovascular: irregularly irregular Respiratory: clear to auscultation (anteriorly) ABD: more distended; tight Extremities: increase in leg edema; edema of left arm Neuro: sleeping; awakened easily with movement of leg Assessment/Plan Problem List 1. E. coli UTI Status: Acute 2. Staphylococcus aureus bacteremia without sepsis Status: Acute 3. Acute renal insufficiency Status: Acute 4. Cirrhosis Status: Acute 5. Weakness Status: Acute 6. Elevated LFTs Status: Acute 7. Leukocytosis Status: Acute 8. Left shoulder pain Status: Acute 9. Essential hypertension Status: Chronic 10. Anemia Status: Chronic 11. Lower extremity edema Status: Chronic 12. Atrial fibrillation Status: Chronic 13. Ascites Patient condition Guarded Plan: continue current care, to have paracentesis today; PICC line to be placed; spironolactone initiated This inpt stay is expected to cross 2 MNs from start of care Yes (Anne Traore APRN) Subjective Date 11/25/16 Time 0849 Assessment/Plan Problem List 1. E. coli UTI Status: Acute 2. Staphylococcus aureus bacteremia without sepsis Status: Acute 3. Acute renal insufficiency Status: Acute 4. Cirrhosis Status: Acute 5. Ascites 6. Weakness Status: Acute 7. Elevated LFTs Status: Acute 8. Leukocytosis Status: Acute 9. Left shoulder pain Status: Acute 10. Essential hypertension Status: Chronic 11. Anemia Status: Chronic 12. Lower extremity edema Status: Chronic 13. Atrial fibrillation Status: Chronic Plan: Pt seen and examined. He is a bit more alert today. GI consult noted and appreciated. Concur with above assessment and plan. (Harinder Husain MD) at 0844 at 0851
[2016-11-25 08:45] LABS: Immunoglobulin A, Qn 703 mg/dL (61-437); Immunoglobulin G, Qn 1984 mg/dL (700-1600); Immunoglobulin M, Qn 48 mg/dL (15-143)
--- NOTE | 2016-11-25 08:50 | ACUTE CARE PROGRESS NOTE (QUA) ---
Progress Notes Subjective Date 11/25/16 Time 0850 Assessment/Plan Problem List 1. E. coli UTI Status: Acute 2. Staphylococcus aureus bacteremia without sepsis Status: Acute 3. Acute renal insufficiency Status: Acute 4. Cirrhosis Status: Acute 5. Weakness Status: Acute 6. Elevated LFTs Status: Acute 7. Leukocytosis Status: Acute 8. Left shoulder pain Status: Acute 9. Essential hypertension Status: Chronic 10. Anemia Status: Chronic 11. Lower extremity edema Status: Chronic 12. Atrial fibrillation Status: Chronic 13. Ascites This inpt stay is expected to cross 2 MNs from start of care Yes Antibiotic Stewardship (2) Current Culture Results Microbiology 11/21 1140 BLOOD: Anaerobic Blood Culture - COMP STAPHYLOCOCCUS AUREUS 11/21 1140 BLOOD: Aerobic Blood Culture - COMP STAPHYLOCOCCUS AUREUS 11/21 1055 URINE CC: Urine Culture - COMP ESCHERICHIA COLI Infxn that will respond? Yes Right drug,dose,and route? Yes More targeted antbx? No at 0850
[2016-11-25 09:38] LABS: HBsAg Screen Negative (Negative); Hep A Ab, IgM Negative (Negative); Hep B Core Ab, IgM Negative (Negative); Hep C Virus Ab <0.1 (0.0-0.9)
--- NOTE | 2016-11-25 11:35 | RADIOLOGY REPORT PS360 ---
CHEST PORTABLE-PICC PLACEMENT 1111 hours CLINICAL INDICATION: Reposition PICC line REPOSITION ORDERING PHYSICIAN: Harinder Husain MD PATIENT AGE: 71 years COMPARISON: Same day exam FINDINGS: PICC line has been repositioned. The tip is now in good position in the cavoatrial region. Cardiomegaly with pulmonary venous congestion along with right-sided pneumonia and loculated pleural effusion in the right lung base. There are old right-sided rib fractures. IMPRESSION: Good placement of PICC line. CHF with right-sided pneumonia and right effusion
--- NOTE | 2016-11-25 11:37 | RADIOLOGY REPORT PS360 ---
CHEST PORTABLE-PICC PLACEMENT CLINICAL INDICATION: PICC LINE INSERTION ORDERING PHYSICIAN: Harinder Husain MD PATIENT AGE: 71 years COMPARISON: 11/21/2016 FINDINGS: Right upper extremity PICC line has been inserted. The line is curled in the brachial region. The tip is in the subclavian area. There is cardiomegaly with pulmonary venous congestion the low lung volumes with increasing consolidation in the right lung base and probable loculated right pleural effusion. IMPRESSION: PICC line is curled in the brachial area with the tip in the subclavian region. Increasing right lower lobe consolidation/collapse with small right effusion
[2016-11-25 12:36] LABS: Actin (Smooth Muscle) Antibody 7 Units (0-19); Mitochondrial (M2) Antibody <20.0 Units (0.0-20.0)
[2016-11-25 13:20] LABS: URINE BLOOD 3+ (NEG)
[2016-11-25 13:26] LABS: URINE BILIRUBIN - DIPSTICK NEGATIVE (NEG)
[2016-11-25 14:40] LABS: ACE 26 U/L (14-82); Bone Fraction: 50 % (12-68); Intestinal Frac.: 0 % (0-18); Liver Fraction: 50 % (13-88)
[2016-11-26 03:38] VITALS: BP 130/86
[2016-11-26 06:30] LABS: HEMOGLOBIN 9.7 g/dL (14.1-18.0); LYMPH # 1.1 K/mm3 (0.7-4.5); LYMPH % 10.2 % (10-50)
[2016-11-26 08:00] VITALS: BP 115/89
--- NOTE | 2016-11-26 08:25 | CONSULT NOTE ---
Pharmacokinetic Consult Date of consult: 11/26/16 Time of consult: 822 Referring provider: DR. JORDAN Reason for consult: VANCOMYCIN DOSING Allergies: Coded Allergies: No Known Allergies (07/18/15) Home Medications: Active Scripts Ferrous Sulfate (Ferrous Sulfate 325MG) 325 MG PO BID #30 TAB Ref 4 Prov: 09/04/15 Lovastatin 40 MG PO QHS #30 TAB Ref 3 Prov: 09/04/15 ASPIRIN (Aspirin) 81 MG PO DAILY #30 TABLET Ref 2 Prov: 09/04/15 Reported Medications Clopidogrel Bisulfate (Plavix) 75 MG PO DAILY #30 TAB Ref 2 Metolazone (Metolazone 5MG Tablet) 5 MG PO DAILY Amlodipine Besylate 2.5 MG PO DAILY Cyanocobalamin (Vitamin B-12) (B-12) 500 MCG PO DAILY Famotidine (Pepcid 20MG) 20 MG PO DAILY Metoprolol Tartrate 25 MG PO BID Potassium Chloride (Klor-Con M20) 40 MEQ PO TID OXYCODONE HCL (Oxycodone Hydrochloride) 5 MG PO Q4HP PRN PAIN Acetaminophen (Acetaminophen Extra Strength) 1,000 MG PO Q6HP PRN PAIN CHOLECALCIFEROL (VITAMIN D3) (Vitamin D) 1 TAB PO DAILY Furosemide (Lasix 40MG) 40 MG PO BID Risperidone (Risperdal 0.5 Mg Tablet) 0.5 MG PO BID Lorazepam (Ativan) 0.5 MG PO QID PRN ANXIETY Ezetimibe 10 MG PO QHS Height (feet): 6 Height (inches): 5.00 Medical History: CAD? No Angina: Yes PA: No Hypertension? Yes Hyperlipidemia? Yes CHF? Yes DVT? No PE? No COPD? No Asthma? No Anemia? Yes GERD? Yes Hernia? No Thyroid Problems? Yes Hypothyroidism? No CVA? No Seizures? No Diabetes? No Renal Insuffiency? No UTI? No Stones? No GB Disease: No Nephritic Syndrome? No Asplenia? No Hepatitis? No Sickle Cell Disease? No Arthritis? No Cataracts? Yes Glaucoma? No MRSA? No TB? No Anxiety? No Depression? No Cancer? No More? Yes Additional hx: 1. SHARKO FOOT 2. AFIB 3. TIA 4. MENTAL RETARDATION Labs: Laboratory Tests 11/26/16 0604: Sodium 138, Potassium 4.7, Chloride 108 H, Carbon Dioxide 24, BUN 42 H, Creatinine 1.2, Estimated Creat Clear 95, Estimated GFR (MDRD) 59, Glucose 103, Calcium 8.1 L, Total Bilirubin 1.1 H, AST 39 H, ALT 36, Alkaline Phosphatase 467 H, Total Protein 6.9, Albumin 1.3 L, Globulin 5.6 H, Albumin/Globulin Ratio 0.2 L, WBC 10.6, RBC 3.83 L, Hgb 9.7 L, Hct 33.4 L, MCV 87.2, RDW 16.9 , Plt Count 357, MPV 8.2, Gran % 80.3 H, Gran # 8.5 H, Lymphocytes % 10.2, Monocytes % 8.8, Eosinophils % 0.4, Basophils % 0.2, Lymphocytes # 1.1, Monocytes # 0.9, Eosinophils # 0.1, Basophils # 0.0, PUBS MCHC 28.9 L, MCH 25.2 L 11/25/161304: Urine Color DK YELLOW, Urine Appearance CLOUDY, Urine pH 5.5, Ur Specific [place] >= 1.030, Urine Protein TRACE H, Urine Ketones NEGATIVE, Urine Blood 3+ H, Urine Nitrate NEGATIVE, Urine Bilirubin NEGATIVE, Urine Urobilinogen 4.0, Ur Leukocyte Esterase NEGATIVE, Urine RBC 5-10, Urine WBC 3-5, Ur Squamous Epith Cells NONE, Urine Bacteria 4+, Hyaline Casts 5-10, Urine Mucus 2+, Urine Glucose NEGATIVE Microbiology 11/25 1304 URINE CATH: Urine Culture - CAN Cancelled: @DUPLICATE ORDERS 11/25 1304 URINE CATH: Urine Culture - CAN Cancelled: @DUPLICATE ORDERS 11/25 1304 URINE CATH: Urine Culture - CAN Cancelled: @DUPLICATE ORDERS 11/25 1304 URINE CATH: Urine Culture - CAN Cancelled: @DUPLICATE ORDERS 11/25 1304 URINE CATH: Urine Culture - CAN Cancelled: @DUPLICATE ORDERS 11/25 1304 URINE CATH: Urine Culture - CAN Cancelled: @DUPLICATE ORDERS 11/25 1304 URINE CATH: Urine Culture - CAN Cancelled: @DUPLICATE ORDERS 11/25 1304 URINE CATH: Urine Culture - CAN Cancelled: @DUPLICATE ORDERS 11/25 1304 URINE CATH: Urine Culture - CAN Cancelled: @DUPLICATE ORDERS 10/17 1305 URINE CATH: Urine Culture - CAN Cancelled: @DUPLICATE ORDERS 11/25 1305 URINE CATH: Urine Culture - CAN Cancelled: @DUPLICATE ORDERS 11/25 1305 URINE CATH: Urine Culture - CAN Cancelled: @DUPLICATE ORDERS 11/25 1305 URINE CATH: Urine Culture - RES Problem List: 1. Staphylococcus aureus bacteremia without sepsis Acute Plan: BASED ON PATIENT FACTORS, RECOMMEND VANCOMYCIN 2 GM IV Q12H. WILL OBTAIN VANCOMYCIN TROUGH LEVEL TOMORROW MORNING PRIOR TO 4TH DOSE. PHARMACY WILL FOLLOW DAILY AND ADJUST APPROPRIATE. at 0884
--- NOTE | 2016-11-26 08:39 | ACUTE CARE PROGRESS NOTE (QUA) ---
Progress Notes Subjective Date 11/26/16 Time 0740 Note has been restless; yelling out more frequently; asked for his nerve pill; would not eat yesterday; was nauseated but did not vomit;Verdin in place; states his abdomen hurts; has leg cramps Objective Findings Laboratory Tests 11/26/16 0604: Sodium 138, Potassium 4.7, Chloride 108 H, Carbon Dioxide 24, BUN 42 H, Creatinine 1.2, Estimated Creat Clear 95, Estimated GFR (MDRD) 59, Glucose 103, Calcium 8.1 L, Total Bilirubin 1.1 H, AST 39 H, ALT 36, Alkaline Phosphatase 467 H, Total Protein 6.9, Albumin 1.3 L, Globulin 5.6 H, Albumin/Globulin Ratio 0.2 L, WBC 10.6, RBC 3.83 L, Hgb 9.7 L, Hct 33.4 L, MCV 87.2, RDW 16.9 , Plt Count 357, MPV 8.2, Gran % 80.3 H, Gran # 8.5 H, Lymphocytes % 10.2, Monocytes % 8.8, Eosinophils % 0.4, Basophils % 0.2, Lymphocytes # 1.1, Monocytes # 0.9, Eosinophils # 0.1, Basophils # 0.0, PUBS MCHC 28.9 L, MCH 25.2 L 11/25/16 1305: Urine Color DK YELLOW, Urine Appearance CLOUDY, Urine pH 5.5, Ur Specific [place] >= 1.030, Urine Protein TRACE H, Urine Ketones NEGATIVE, Urine Blood 3+ H, Urine Nitrate NEGATIVE, Urine Bilirubin NEGATIVE, Urine Urobilinogen 4.0, Ur Leukocyte Esterase NEGATIVE, Urine RBC 5-10, Urine WBC 3-5, Ur Squamous Epith Cells NONE, Urine Bacteria 4+, Hyaline Casts 5-10, Urine Mucus 2+, Urine Glucose NEGATIVE Microbiology 11/25 1304 URINE CATH: Urine Culture - CAN Cancelled: @DUPLICATE ORDERS 11/25 1304 URINE CATH: Urine Culture - CAN Cancelled: @DUPLICATE ORDERS 11/25 1304 URINE CATH: Urine Culture - CAN Cancelled: @DUPLICATE ORDERS 11/25 1304 URINE CATH: Urine Culture - CAN Cancelled: @DUPLICATE ORDERS 11/25 1304 URINE CATH: Urine Culture - CAN Cancelled: @DUPLICATE ORDERS 11/25 1304 URINE CATH: Urine Culture - CAN Cancelled: @DUPLICATE ORDERS 11/25 130 URINE CATH: Urine Culture - CAN Cancelled: @DUPLICATE ORDERS 11/25 130 URINE CATH: Urine Culture - CAN Cancelled: @DUPLICATE ORDERS 11/25 130 URINE CATH: Urine Culture - CAN Cancelled: @DUPLICATE ORDERS 11/25 130 URINE CATH: Urine Culture - CAN Cancelled: @DUPLICATE ORDERS 11/25 130 URINE CATH: Urine Culture - CAN Cancelled: @DUPLICATE ORDERS 11/25 130 URINE CATH: Urine Culture - CAN Cancelled: @DUPLICATE ORDERS 11/25 130 URINE CATH: Urine Culture - RES Vital Signs Date Time Temp Pulse Resp B/P Pulse O2 O2 Flow FiO2 Ox Delivery Rate 11/26 0338 98.4 154 28 130/86 95 ROOM AIR 11/25 2353 98.0 85 18 140/86 95 ROOM AIR 11/25 2209 19 11/25 1958 98.2 80 19 143/91 97 ROOM AIR 11/25 1915 98.2 80 19 143/91 97 11/25 1503 22 11/25 1132 97.7 120 22 149/91 96 ROOM AIR Current Medications Levofloxacin/Dextrose 150 ML 1300 IV Lorazepam 0 .STK-MED ONE .ROUTE (DC) Vancomycin HCl 2,000 MG Q12H IV Sodium Chloride 250 ML Ondansetron HCl 0 .STK-MED ONE .ROUTE (DC) Sodium Chloride 100 ML .STK-MED ONE IV (DC) Piperacillin Sod/Tazobactam Sod 0 .STK-MED ONE .ROUTE (DC) Piperacillin Sod/Tazobactam Sod 4.5 GM Q6 IV Sodium Chloride 100 ML Lorazepam 0 .STK-MED ONE .ROUTE (DC) Levalbuterol HCl 1.25 MG TIDRT INH Vancomycin HCl 2,000 MG ONCE ONE IV (DC) Sodium Chloride 500 ML Sodium Chloride 250 ML .STK-MED ONE IV (DC) Vancomycin HCl 0 .STK-MED ONE .ROUTE (DC) Miscellaneous Information 1 EACH CONSULT PHARMACY * (DC) Levofloxacin/Dextrose 150 ML DAILY IV (DC) Ondansetron HCl 4 MG Q6HP PRN IV Ondansetron HCl 0 .STK-MED ONE .ROUTE (DC) Lorazepam 0 .STK-MED ONE .ROUTE (DC) Furosemide 40 MG ONCE ONE IV (DC) Sodium Chloride 25 ML .STK-MED ONE IV (DC) Spironolactone 100 MG DAILY PO Sodium Chloride 10 ML PRN PRN IV Amlodipine Besylate 2.5 MG DAILY PO Aspirin 81 MG DAILY PO (DC) Ceftriaxone Sodium 1 GM 0900 IV (DC) Sodium Chloride 50 ML Clopidogrel Bisulfate 75 MG DAILY PO (DC) Famotidine 20 MG DAILY PO Guaifenesin/Dextromethorphan 10 ML Q4HP PRN PO Ferrous Sulfate 325 MG BID PO Metoprolol Tartrate 25 MG BID PO Potassium Chloride 20 MEQ TID PO Risperidone 0.5 MG BID PO Acetaminophen 500 MG Q4HP PRN PO (CKDr) Lorazepam 0.5 MG QIDP PRN PO Sodium Chloride 10 ML PRN PRN IV Influenza Virus Vaccine Quadrival 0.5 ML PRN PRN IM 11/25 1500 11/25 2300 11/26 0700 Intake Total 548 240 Output Total 500 1000 Balance 548 -260 -1000 Intake, IV 548 Intake, Oral 240 Output, Urine 500 1000 Patient 270 lb Weight Last VS-Temp:98.4 B/P:130/86 Pulse:154 Resp:28 SaO2:95 ROOM AIR Last weight lbs:270 oz:5 K.612 Method:Bed Scales Exam General appearance: awake and answers questions Cardiovascular: irregularly irregular Respiratory: lungs sound clear posteriorly ABD: bowel sounds present, very distended and tight Extremities: bilateral leg edema; left arm is edematous Assessment/Plan Problem List 1. E. coli UTI Status: Acute 2. Staphylococcus aureus bacteremia without sepsis Status: Acute 3. Acute renal insufficiency Status: Acute 4. Cirrhosis Status: Acute 5. Ascites 6. Weakness Status: Acute 7. Elevated LFTs Status: Acute 8. Leukocytosis Status: Acute 9. Left shoulder pain Status: Acute 10. Essential hypertension Status: Chronic 11. Anemia Status: Chronic 12. Lower extremity edema Status: Chronic 13. Atrial fibrillation Status: Chronic Patient condition Guarded Plan: continue current care, plan for paracentesis in the AM. Management of pain and anxiety This inpt stay is expected to cross 2 MNs from start of care Yes (Anne Traore APRN) Subjective Date 11/26/16 Time 0936 Assessment/Plan Problem List 1. HCAP (healthcare-associated pneumonia) 2. CHF (congestive heart failure) 3. E. coli UTI Status: Acute 4. Staphylococcus aureus bacteremia without sepsis Status: Acute 5. Acute renal insufficiency Status: Acute 6. Cirrhosis Status: Acute 7. Ascites 8. Weakness Status: Acute 9. Elevated LFTs Status: Acute 10. Left shoulder pain Status: Acute 11. Essential hypertension Status: Chronic 12. Anemia Status: Chronic 13. Lower extremity edema Status: Chronic 14. Atrial fibrillation Status: Chronic Plan: Pt seen and examined. Somnolent but arouses and responds to questions. Antibiotic regimen changed last evening. Scheduled for paracentesis tomorrow. Labs pending. (Harinder Husain MD) at 0839 at 0939
[2016-11-26 11:54] VITALS: BP 133/72
[2016-11-26 15:36] VITALS: BP 128/91
[2016-11-26 19:59] VITALS: BP 121/77
[2016-11-26 23:49] VITALS: BP 145/96
[2016-11-27] VITALS (13 sets, daily range): BP systolic 105–154; BP diastolic 63–96
--- NOTE | 2016-11-27 08:16 | ACUTE CARE PROGRESS NOTE (QUA) ---
Progress Notes Subjective Date 11/27/16 Time 0813 Note Pt states he is not feeling well today. He did not sleep well last night. He states he is hungry this am but can't have food. He is having pain in his entire abdomen and he is SOA. Objective Findings Last VS-Temp:98.0 B/P:141/84 Pulse:73 Resp:20 SaO2:93 ROOM AIR Last weight lbs:274 oz:7 K.483 Method:Bed Scales Laboratory Tests 11/27/16 0728: Vancomycin Trough 24.6 H Exam General appearance: Pt does not appear to feel well, he is dyspneic at rest Cardiovascular: irregularly irregular, tachycardia Respiratory: clear to auscultation ABD: distended, very tight, diffusely ttp Extremities: edema of the bilateral lower and upper extremities Assessment/Plan Problem List 1. HCAP (healthcare-associated pneumonia) 2. CHF (congestive heart failure) 3. E. coli UTI Status: Acute 4. Staphylococcus aureus bacteremia without sepsis Status: Acute 5. Acute renal insufficiency Status: Acute 6. Cirrhosis Status: Acute 7. Ascites 8. Weakness Status: Acute 9. Elevated LFTs Status: Acute 10. Left shoulder pain Status: Acute 11. Essential hypertension Status: Chronic 12. Anemia Status: Chronic 13. Lower extremity edema Status: Chronic 14. Atrial fibrillation Status: Chronic Plan: Patient supposed to be having a paracentesis today. Will continue abx for pneumonia. This inpt stay is expected to cross 2 MNs from start of care Yes (Leilani Clark) Subjective Date 11/27/16 Assessment/Plan Problem List 1. HCAP (healthcare-associated pneumonia) 2. CHF (congestive heart failure) 3. E. coli UTI Status: Acute 4. Staphylococcus aureus bacteremia without sepsis Status: Acute 5. Acute renal insufficiency Status: Acute 6. Cirrhosis Status: Acute 7. Ascites 8. Weakness Status: Acute 9. Elevated LFTs Status: Acute 10. Left shoulder pain Status: Acute 11. Essential hypertension Status: Chronic 12. Anemia Status: Chronic 13. Lower extremity edema Status: Chronic 14. Atrial fibrillation Status: Chronic Plan: Pt seen and examined. He is a bit more alert today but same complaint of abdominal pain. He is to have large volume paracentesis today. (Harinder Husain MD) at 0815 at 2498
--- NOTE | 2016-11-27 10:53 | CONSULT NOTE ---
Pharmacokinetic Consult Date of consult: 11/27/16 Time of consult: 1048 Referring provider: DR. JORDAN Reason for consult: VANCOMYCIN TROUGH LEVEL Allergies: Coded Allergies: No Known Allergies (07/18/15) Home Medications: Active Scripts Ferrous Sulfate (Ferrous Sulfate 325MG) 325 MG PO BID #30 TAB Ref 4 Prov: 09/04/15 Lovastatin 40 MG PO QHS #30 TAB Ref 3 Prov: 09/04/15 ASPIRIN (Aspirin) 81 MG PO DAILY #30 TABLET Ref 2 Prov: 09/04/15 Reported Medications Clopidogrel Bisulfate (Plavix) 75 MG PO DAILY #30 TAB Ref 2 Metolazone (Metolazone 5MG Tablet) 5 MG PO DAILY Amlodipine Besylate 2.5 MG PO DAILY Cyanocobalamin (Vitamin B-12) (B-12) 500 MCG PO DAILY Famotidine (Pepcid 20MG) 20 MG PO DAILY Metoprolol Tartrate 25 MG PO BID Potassium Chloride (Klor-Con M20) 40 MEQ PO TID OXYCODONE HCL (Oxycodone Hydrochloride) 5 MG PO Q4HP PRN PAIN Acetaminophen (Acetaminophen Extra Strength) 1,000 MG PO Q6HP PRN PAIN CHOLECALCIFEROL (VITAMIN D3) (Vitamin D) 1 TAB PO DAILY Furosemide (Lasix 40MG) 40 MG PO BID Risperidone (Risperdal 0.5 Mg Tablet) 0.5 MG PO BID Lorazepam (Ativan) 0.5 MG PO QID PRN ANXIETY Ezetimibe 10 MG PO QHS Height (feet): 6 Height (inches): 5.00 Medical History: CAD? No Angina: Yes [place]: No Hypertension? Yes Hyperlipidemia? Yes CHF? Yes DVT? No PE? No COPD? No Asthma? No Anemia? Yes GERD? Yes Hernia? No Thyroid Problems? Yes Hypothyroidism? No CVA? No Seizures? No Diabetes? No Renal Insuffiency? No UTI? No Stones? No GB Disease: No Nephritic Syndrome? No Asplenia? No Hepatitis? No Sickle Cell Disease? No Arthritis? No Cataracts? Yes Glaucoma? No MRSA? No TB? No Anxiety? No Depression? No Cancer? No More? Yes Additional hx: 1. SHARKO FOOT 2. AFIB 3. TIA 4. MENTAL RETARDATION Labs: Laboratory Tests 11/27/16 0728: Vancomycin Trough 24.6 H Problem List: 1. HCAP (healthcare-associated pneumonia) Plan: BASED ON VANCOMYCIN TROUGH LEVEL, RECOMMEND HOLDING DOSE THIS MORNING. WILL RE- CHECK TROUGH LEVEL TONIGHT AND CHANGE INTERVAL TO VANCOMYCIN 2 GM IV Q18H IF TROUGH LEVEL < 20 MCG/ML. PHARMACY WILL CONTINUE TO MONITOR DAILY AND ADJUST APPROPRIATE. at 6506
[2016-11-27 12:55] LABS: BODY FLUID RBC < 10 /mm3; BODY FLUID WBC 145 MM
[2016-11-27 14:09] LABS: BODY FLUID MONONUCLEAR 54 %; BODY FLUID POLY 46 %
--- NOTE | 2016-11-27 15:57 | RADIOLOGY REPORT PS360 ---
US BIOPSY OR PARACENTESIS HISTORY: cirrhosis/ascites ORDERING PHYSICIAN: Harinder Husain MD PATIENT AGE: 71 years COMPARISON: None PROCEDURE: Following obtaining informed consent and after appropriate Time out, under aseptic conditions and local anesthesia with 1% buffered lidocaine using sonographic guidance a 4 Indonesian one-step catheter was inserted into the largest pocket of fluid localized in the right lower quadrant. Approximately 8000 cc of Serosanguineous fluid was drained. Small volume of is fluid was sent to the lab for analysis. The patient tolerated the procedure well with no immediate complications. IMPRESSION: Successful sonographic guided paracentesis without complication
[2016-11-28] VITALS (8 sets, daily range): BP systolic 120–146; BP diastolic 78–92
--- NOTE | 2016-11-28 08:20 | ACUTE CARE PROGRESS NOTE (QUA) ---
Progress Notes Subjective Date 11/28/16 Time 0815 Note Pt had a paracentesis yesterday and they were able to remove 8L of fluid. His family member states already this am his abdomen looks like it is starting to distend again. The patient denies any pain. He ate only a small amount and was awake a lot through the night. He still has not had a BM. Objective Findings Last VS-Temp:98.5 B/P:146/81 Pulse:129 Resp:24 SaO2:95 ROOM AIR Last weight lbs:256 oz:9 K.375 Method:Bed Scales Laboratory Tests 11/27/16 1925: Vancomycin Trough 17.3 H 11/27/16 1200: Fluid Source ABDOMEN, Fluid WBC 145, Fluid RBC < 10, Fluid Diff Comment COMMENT, Fluid Mononuclear Cell 54, Fl Polymorphonucl Cell 46 Microbiology 11/27 1200 PER FLD: Body Fluid Culture - RES 11/27 1200 PER FLD: Gram Stain - RES Exam General appearance: awake, no acute distress, able to answer questions Cardiovascular: irregularly irregular Respiratory: still dyspneic but improved from yesterday, diminished breath sounds ABD: distended, diffusely ttp Extremities: leg edema bilaterally Assessment/Plan Problem List 1. HCAP (healthcare-associated pneumonia) 2. CHF (congestive heart failure) 3. E. coli UTI Status: Acute 4. Staphylococcus aureus bacteremia without sepsis Status: Acute 5. Acute renal insufficiency Status: Acute 6. Cirrhosis Status: Acute 7. Ascites 8. Weakness Status: Acute 9. Elevated LFTs Status: Acute 10. Left shoulder pain Status: Acute 11. Essential hypertension Status: Chronic 12. Anemia Status: Chronic 13. Lower extremity edema Status: Chronic 14. Atrial fibrillation Status: Chronic Plan: Will get a CXR and have PT see the patient. Will start on medication for constipation. This inpt stay is expected to cross 2 MNs from start of care Yes (Leilani Clark) Subjective Date 11/28/16 Time 0828 Assessment/Plan Problem List 1. HCAP (healthcare-associated pneumonia) 2. CHF (congestive heart failure) 3. E. coli UTI Status: Acute 4. Staphylococcus aureus bacteremia without sepsis Status: Acute 5. Acute renal insufficiency Status: Acute 6. Cirrhosis Status: Acute 7. Ascites 8. Weakness Status: Acute 9. Elevated LFTs Status: Acute 10. Left shoulder pain Status: Acute 11. Essential hypertension Status: Chronic 12. Anemia Status: Chronic 13. Lower extremity edema Status: Chronic 14. Atrial fibrillation Status: Chronic Plan: He is more alert. Lungs sound better. Abdomen is tender around paracentesis site. Still has some ascites. No BM. Will repeat CXR, obtain PT eval. (Harinder Husain MD) at 0825 at 0814
--- NOTE | 2016-11-28 08:26 | ACUTE CARE PROGRESS NOTE (QUA) ---
Progress Notes Subjective Date 11/28/16 Time 0825 Assessment/Plan Problem List 1. HCAP (healthcare-associated pneumonia) 2. CHF (congestive heart failure) 3. E. coli UTI Status: Acute 4. Staphylococcus aureus bacteremia without sepsis Status: Acute 5. Acute renal insufficiency Status: Acute 6. Cirrhosis Status: Acute 7. Ascites 8. Weakness Status: Acute 9. Elevated LFTs Status: Acute 10. Left shoulder pain Status: Acute 11. Essential hypertension Status: Chronic 12. Anemia Status: Chronic 13. Lower extremity edema Status: Chronic 14. Atrial fibrillation Status: Chronic This inpt stay is expected to cross 2 MNs from start of care Yes Antibiotic Stewardship (2) Current Culture Results Microbiology 11/27 1200 PER FLD: Body Fluid Culture - RES 11/27 1200 PER FLD: Gram Stain - RES 11/21 1140 BLOOD: Anaerobic Blood Culture - COMP STAPHYLOCOCCUS AUREUS 11/21 1140 BLOOD: Aerobic Blood Culture - COMP STAPHYLOCOCCUS AUREUS 11/21 1055 URINE CC: Urine Culture - COMP ESCHERICHIA COLI Infxn that will respond? Yes Right drug,dose,and route? Yes (EMPIRIC THERAPY) More targeted antbx? No (NO SPUTUM CULTURES AT THIS SH[facility]) at 0825
--- NOTE | 2016-11-28 09:26 | CONSULT NOTE ---
Pharmacokinetic Consult Date of consult: 11/28/16 Time of consult: 920 Referring provider: DR. JORDAN Reason for consult: VANCOMYCIN TROUGH LEVEL Allergies: Coded Allergies: No Known Allergies (07/18/15) Home Medications: Active Scripts Ferrous Sulfate (Ferrous Sulfate 325MG) 325 MG PO BID #30 TAB Ref 4 Prov: 09/04/15 Lovastatin 40 MG PO QHS #30 TAB Ref 3 Prov: 09/04/15 ASPIRIN (Aspirin) 81 MG PO DAILY #30 TABLET Ref 2 Prov: 09/04/15 Reported Medications Clopidogrel Bisulfate (Plavix) 75 MG PO DAILY #30 TAB Ref 2 Metolazone (Metolazone 5MG Tablet) 5 MG PO DAILY Amlodipine Besylate 2.5 MG PO DAILY Cyanocobalamin (Vitamin B-12) (B-12) 500 MCG PO DAILY Famotidine (Pepcid 20MG) 20 MG PO DAILY Metoprolol Tartrate 25 MG PO BID Potassium Chloride (Klor-Con M20) 40 MEQ PO TID OXYCODONE HCL (Oxycodone Hydrochloride) 5 MG PO Q4HP PRN PAIN Acetaminophen (Acetaminophen Extra Strength) 1,000 MG PO Q6HP PRN PAIN CHOLECALCIFEROL (VITAMIN D3) (Vitamin D) 1 TAB PO DAILY Furosemide (Lasix 40MG) 40 MG PO BID Risperidone (Risperdal 0.5 Mg Tablet) 0.5 MG PO BID Lorazepam (Ativan) 0.5 MG PO QID PRN ANXIETY Ezetimibe 10 MG PO QHS Height (feet): 6 Height (inches): 5.00 Medical History: CAD? No Angina: Yes [place]: No Hypertension? Yes Hyperlipidemia? Yes CHF? Yes DVT? No PE? No COPD? No Asthma? No Anemia? Yes GERD? Yes Hernia? No Thyroid Problems? Yes Hypothyroidism? No CVA? No Seizures? No Diabetes? No Renal Insuffiency? No UTI? No Stones? No GB Disease: No Nephritic Syndrome? No Asplenia? No Hepatitis? No Sickle Cell Disease? No Arthritis? No Cataracts? Yes Glaucoma? No MRSA? No TB? No Anxiety? No Depression? No Cancer? No More? Yes Additional hx: 1. SHARKO FOOT 2. AFIB 3. TIA 4. MENTAL RETARDATION Labs: Laboratory Tests 10/19/17 1925: Vancomycin Trough 17.3 H 11/27/16 1200: Fluid Source ABDOMEN, Fluid WBC 145, Fluid RBC < 10, Fluid Diff Comment COMMENT, Fluid Mononuclear Cell 54, Fl Polymorphonucl Cell 46 Microbiology 11/27 1200 SPUTUM: Sputum Culture - ORD 11/27 1200 SPUTUM: Gram Stain - ORD 11/27 1200 PER FLD: Body Fluid Culture - ORD 11/27 1200 PER FLD: Organism ID (Sequencing 2)(SILVER) - ORD 11/27 1200 PER FLD: Body Fluid Culture - RES 11/27 1200 PER FLD: Gram Stain - RES Problem List: 1. HCAP (healthcare-associated pneumonia) Plan: BASED ON PATIENT FACTORS AND VANCOMYCIN TROUGH LEVEL OF 17.3, RECOMMEND CONTINUING CURRENT DOSE OF VANCOMYCIN 2,000MG EVERY 18 HOURS. PHARMACY WILL CONTINUE TO MONITOR AND ADJUST DOSE APPROPRIATE. at 2011
--- NOTE | 2016-11-28 11:12 | RADIOLOGY REPORT PS360 ---
CHEST-PORTABLE HISTORY: pneumonia ORDERING PHYSICIAN: Harinder Husain MD PATIENT AGE: 71 years COMPARISON: 11/25/2016 FINDINGS: Cardiomegaly. PICC line remains present with the tip in region of the SVC. Consolidation is present in the right perihilar region and right lower lobe with loculated effusion/atelectatic change in the right lung base medially. Pleural effusion with pleural thickening noted laterally. Right hemidiaphragm is elevated. Patchy density is present in the left lung base may be due to atelectasis and/or infiltrate. IMPRESSION: Overall no significant change right-sided pneumonia with left lower lobe atelectasis or pneumonia and right-sided effusion with volume loss. CHF has shown some improvement..
[2016-11-28 12:36] LABS: Albumin, Body Fluid 0.5 g/dL (.); Protein, Body Fluid 1.7 g/dL (.)
[2016-11-29] VITALS (21 sets, daily range): BP systolic 91–151; BP diastolic 60–87
--- NOTE | 2016-11-29 07:50 | ACUTE CARE PROGRESS NOTE (QUA) ---
See Addendum Progress Notes Subjective Date 11/29/16 Time 0741 Note Noted with increased respirations and increased heart rate through the night. Did not sleep much. Yells out frequently but no specific complaints. Objective Findings Laboratory Tests 11/29/16 0620: Creatine Kinase 16 L, CK-MB (CK-2) Rel Index 3.1, CK and CKMB Interp 0.5, Troponin I < 0.02 Microbiology 11/29 234 SPUTUM: Sputum Culture - RES 11/29 234 SPUTUM: Gram Stain - RES Last VS-Temp:97.2 B/P:151/87 Pulse:154 Resp:34 SaO2:96 ROOM AIR Last weight lbs:256 oz:9 K.375 Method:Bed Scales Exam General appearance: awake, speech garbled Cardiovascular: irregular rhythm, tachycardic Respiratory: tachypneic, diminished BS in bases with bilateral rales and wheezes ABD: soft, soft, distended, NT Extremities: 1+ PTE to mid calves Assessment/Plan Problem List 1. HCAP (healthcare-associated pneumonia) 2. CHF (congestive heart failure) 3. E. coli UTI Status: Acute 4. Staphylococcus aureus bacteremia without sepsis Status: Acute 5. Acute renal insufficiency Status: Acute 6. Cirrhosis Status: Acute 7. Ascites 8. Weakness Status: Acute 9. Elevated LFTs Status: Acute 10. Left shoulder pain Status: Acute 11. Essential hypertension Status: Chronic 12. Anemia Status: Chronic 13. Lower extremity edema Status: Chronic 14. Atrial fibrillation Status: Chronic 15. Uncontrolled atrial fibrillation Plan: Resume Lasix. Start Cardizem bolus and drip. This inpt stay is expected to cross 2 MNs from start of care Yes at 0750
--- NOTE | 2016-11-29 10:28 | CONSULT NOTE ---
Pharmacokinetic Consult Date of consult: 11/29/16 Time of consult: 1024 Referring provider: DR. JORDAN Reason for consult: VANCOMYCIN TROUGH LEVEL Allergies: Coded Allergies: No Known Allergies (07/18/15) Home Medications: Active Scripts Ferrous Sulfate (Ferrous Sulfate 325MG) 325 MG PO BID #30 TAB Ref 4 Prov: 09/04/15 Lovastatin 40 MG PO QHS #30 TAB Ref 3 Prov: 09/04/15 ASPIRIN (Aspirin) 81 MG PO DAILY #30 TABLET Ref 2 Prov: 09/04/15 Reported Medications Clopidogrel Bisulfate (Plavix) 75 MG PO DAILY #30 TAB Ref 2 Metolazone (Metolazone 5MG Tablet) 5 MG PO DAILY Amlodipine Besylate 2.5 MG PO DAILY Cyanocobalamin (Vitamin B-12) (B-12) 500 MCG PO DAILY Famotidine (Pepcid 20MG) 20 MG PO DAILY Metoprolol Tartrate 25 MG PO BID Potassium Chloride (Klor-Con M20) 40 MEQ PO TID OXYCODONE HCL (Oxycodone Hydrochloride) 5 MG PO Q4HP PRN PAIN Acetaminophen (Acetaminophen Extra Strength) 1,000 MG PO Q6HP PRN PAIN CHOLECALCIFEROL (VITAMIN D3) (Vitamin D) 1 TAB PO DAILY Furosemide (Lasix 40MG) 40 MG PO BID Risperidone (Risperdal 0.5 Mg Tablet) 0.5 MG PO BID Lorazepam (Ativan) 0.5 MG PO QID PRN ANXIETY Ezetimibe 10 MG PO QHS Height (feet): 6 Height (inches): 5.00 Medical History: CAD? No Angina: Yes PR: No Hypertension? Yes Hyperlipidemia? Yes CHF? Yes DVT? No PE? No COPD? No Asthma? No Anemia? Yes GERD? Yes Hernia? No Thyroid Problems? Yes Hypothyroidism? No CVA? No Seizures? No Diabetes? No Renal Insuffiency? No UTI? No Stones? No GB Disease: No Nephritic Syndrome? No Asplenia? No Hepatitis? No Sickle Cell Disease? No Arthritis? No Cataracts? Yes Glaucoma? No MRSA? No TB? No Anxiety? No Depression? No Cancer? No More? Yes Additional hx: 1. SHARKO FOOT 2. AFIB 3. TIA 4. MENTAL RETARDATION Labs: Laboratory Tests 11/29/16 0915: Creatinine 1.4 H, Estimated Creat Clear 77, Estimated GFR (MDRD) 50, Vancomycin Trough 25.1 H 11/29/16 0620: Creatine Kinase 16 L, CK-MB (CK-2) Rel Index 3.1, CK and CKMB Interp 0.5, Troponin I < 0.02 Microbiology 11/29 234 SPUTUM: Sputum Culture - RES 11/29 234 SPUTUM: Gram Stain - RES Problem List: 1. HCAP (healthcare-associated pneumonia) Plan: BASED ON VANCOMYCIN TROUGH LEVEL, RECOMMEND HOLDING DOSE TODAY. SRCR HAS INCREASED FROM 1.2 TO 1.4 MG/DL AND TROUGH LEVEL HAS INCREASED FROM 17.3 TO 25.1 MCG/ML. RECOMMEND CHANGING DOSE AND INTERVAL TO VANCOMYCIN 1750 MG IV Q24H BEGINNING TOMORROW MORNING AFTER RE-CHECKING VANCOMYCIN TROUGH LEVEL. at [id number]
[2016-11-30] VITALS (19 sets, daily range): BP systolic 86–145; BP diastolic 59–96
[2016-11-30 06:56] LABS: HEMOGLOBIN 9.3 g/dL (14.1-18.0); LYMPH # 0.9 K/mm3 (0.7-4.5); LYMPH % 7.2 % (10-50)
--- NOTE | 2016-11-30 08:38 | ACUTE CARE PROGRESS NOTE (QUA) ---
Progress Notes Subjective Date 11/30/16 Time 0830 Note Has remained in controlled A-fib since starting IV Cardizem. Still yells out frequently when family is not present. Sleeps intermittently. Ate a little better yesterday. Objective Findings Laboratory Tests 11/30/16 0630: Sodium 140, Potassium 4.6, Chloride 108 H, Carbon Dioxide 27, BUN 37 H, Creatinine 1.3, Estimated Creat Clear 83, Estimated GFR (MDRD) 54, Glucose 115 H, Calcium 8.6, WBC 12.8 H, RBC 3.67 L, Hgb 9.3 L, Hct 32.5 L, MCV 88.4, RDW 17.4, Plt Count 383, MPV 7.5, Gran % 76.2, Gran # 9.7 H, Lymphocytes % 7.2 L, Monocytes % 15.8 H, Eosinophils % 0.6, Basophils % 0.2, Lymphocytes # 0.9, Monocytes # 2.0 H, Eosinophils # 0.1, Basophils # 0.0, PUBS MCHC 28.6 L, MCH 25.3 L, Vancomycin Trough 19.3 H 11/29/16 0915: Creatinine 1.4 H, Estimated Creat Clear 77, Estimated GFR (MDRD) 50, Vancomycin Trough 25.1 H Last VS-Temp:97.9 B/P:115/60 Pulse:93 Resp:22 SaO2:99 OXYGEN Last weight lbs:255 oz:5 K.808 Method:Bed Scales Exam General appearance: drowsy but answers questions. Cardiovascular: irregularly irregular Respiratory: diminshes BS in right lower lung. BB rales. No wheezes ABD: distended but soft. Still draining significant amount of fluid from paracentesis site. Extremities: trace PTE Skin: crural rash Reviewed: medications, vital signs, lab results, nursing notes Assessment/Plan Problem List 1. HCAP (healthcare-associated pneumonia) 2. CHF (congestive heart failure) 3. E. coli UTI Status: Acute 4. Staphylococcus aureus bacteremia without sepsis Status: Acute 5. Acute renal insufficiency Status: Acute 6. Cirrhosis Status: Acute 7. Ascites 8. Weakness Status: Acute 9. Elevated LFTs Status: Acute 10. Left shoulder pain Status: Acute 11. Essential hypertension Status: Chronic 12. Anemia Status: Chronic 13. Lower extremity edema Status: Chronic 14. Atrial fibrillation Status: Chronic 15. Uncontrolled atrial fibrillation Plan: Switch to po Cardizem. Conitnue current antibiotics. Sputum culture pending. GI consult f/u tomorrow. This inpt stay is expected to cross 2 MNs from start of care Yes at 0837
--- NOTE | 2016-11-30 09:12 | CONSULT NOTE ---
Pharmacokinetic Consult Date of consult: 11/30/16 Time of consult: 907 Referring provider: DR. JORDAN Reason for consult: VANCOMYCIN TROUGH LEVEL Allergies: Coded Allergies: No Known Allergies (07/18/15) Home Medications: Active Scripts Ferrous Sulfate (Ferrous Sulfate 325MG) 325 MG PO BID #30 TAB Ref 4 Prov: 09/04/15 Lovastatin 40 MG PO QHS #30 TAB Ref 3 Prov: 09/04/15 ASPIRIN (Aspirin) 81 MG PO DAILY #30 TABLET Ref 2 Prov: 09/04/15 Reported Medications Clopidogrel Bisulfate (Plavix) 75 MG PO DAILY #30 TAB Ref 2 Metolazone (Metolazone 5MG Tablet) 5 MG PO DAILY Amlodipine Besylate 2.5 MG PO DAILY Cyanocobalamin (Vitamin B-12) (B-12) 500 MCG PO DAILY Famotidine (Pepcid 20MG) 20 MG PO DAILY Metoprolol Tartrate 25 MG PO BID Potassium Chloride (Klor-Con M20) 40 MEQ PO TID OXYCODONE HCL (Oxycodone Hydrochloride) 5 MG PO Q4HP PRN PAIN Acetaminophen (Acetaminophen Extra Strength) 1,000 MG PO Q6HP PRN PAIN CHOLECALCIFEROL (VITAMIN D3) (Vitamin D) 1 TAB PO DAILY Furosemide (Lasix 40MG) 40 MG PO BID Risperidone (Risperdal 0.5 Mg Tablet) 0.5 MG PO BID Lorazepam (Ativan) 0.5 MG PO QID PRN ANXIETY Ezetimibe 10 MG PO QHS Height (feet): 6 Height (inches): 5.00 Medical History: CAD? No Angina: Yes [place]: No Hypertension? Yes Hyperlipidemia? Yes CHF? Yes DVT? No PE? No COPD? No Asthma? No Anemia? Yes GERD? Yes Hernia? No Thyroid Problems? Yes Hypothyroidism? No CVA? No Seizures? No Diabetes? No Renal Insuffiency? No UTI? No Stones? No GB Disease: No Nephritic Syndrome? No Asplenia? No Hepatitis? No Sickle Cell Disease? No Arthritis? No Cataracts? Yes Glaucoma? No MRSA? No TB? No Anxiety? No Depression? No Cancer? No More? Yes Additional hx: 1. SHARKO FOOT 2. AFIB 3. TIA 4. MENTAL RETARDATION Labs: Laboratory Tests 11/30/16 0630: Sodium 140, Potassium 4.6, Chloride 108 H, Carbon Dioxide 27, BUN 37 H, Creatinine 1.3, Estimated Creat Clear 83, Estimated GFR (MDRD) 54, Glucose 115 H, Calcium 8.6, WBC 12.8 H, RBC 3.67 L, Hgb 9.3 L, Hct 32.5 L, MCV 88.4, RDW 17.4, Plt Count 383, MPV 7.5, Gran % 76.2, Gran # 9.7 H, Lymphocytes % 7.2 L, Monocytes % 15.8 H, Eosinophils % 0.6, Basophils % 0.2, Lymphocytes # 0.9, Monocytes # 2.0 H, Eosinophils # 0.1, Basophils # 0.0, PUBS MCHC 28.6 L, MCH 25.3 L, Vancomycin Trough 19.3 H 11/29/16 0915: Creatinine 1.4 H, Estimated Creat Clear 77, Estimated GFR (MDRD) 50, Vancomycin Trough 25.1 H Problem List: 1. HCAP (healthcare-associated pneumonia) Plan: BASED ON VANCOMYCIN TROUGH LEVEL, RECOMMEND VANCOMYCIN 1750 MG IV Q48H STARTING AT 1400 TODAY. PHARMACY WILL CONTINUE TO MONITOR DAILY. at 0911
[2016-12-01] VITALS (11 sets, daily range): BP systolic 93–137; BP diastolic 57–84
[2016-12-01 05:06] LABS: HEMOGLOBIN 9.6 g/dL (14.1-18.0); LYMPH # 1.7 K/mm3 (0.7-4.5); LYMPH % 11.1 % (10-50)
[2016-12-01 05:30] LABS: NEUTROPHILS 85 % (42-76)
--- NOTE | 2016-12-01 08:08 | ACUTE CARE PROGRESS NOTE (QUA) ---
See Addendum Progress Notes Subjective Date 12/01/16 Time 0745 Note Per nursing: some intermittent restlessness during the night; + loose stool; low BP; increase in HR during the night and given extra dose of Metoprolol after which HR decreased Per family: has not been eating well; did sit on the bedside once; attends not very wet Per patient: denies pain and SOB; not hungry. Increase in WBC's Objective Findings Laboratory Tests 12/01/16 0420: Sodium 140, Potassium 4.8, Chloride 107, Carbon Dioxide 26, BUN 37 H, Creatinine 1.2, Estimated Creat Clear 90, Estimated GFR (MDRD) 59, Glucose 101, Calcium 8.4 L, Total Bilirubin 0.8, AST 25, ALT 26, Alkaline Phosphatase 348 H , Total Protein 6.1 L, Albumin 1.4 L, Globulin 4.7 H, Albumin/Globulin Ratio 0.3 L, WBC 15.0 H, RBC 3.79 L, Hgb 9.6 L, Hct 33.3 L, MCV 87.9, RDW 17.4, Plt Count 371, MPV 7.6, Gran % 72.3, Gran # 10.9 H, Total Counted 100, Lymphocytes % 11.1, Monocytes % 15.9 H, Eosinophils % 0.4, Basophils % 0.2, Neutrophils 85 H, Band Neutrophils 4, Lymphocytes (Manual) 8 L, Lymphocytes # 1.7, Monocytes (Manual) 3, Monocytes # 2.4 H, Eosinophils # 0.1, Basophils # 0.0, Platelet Estimate NORMAL, Polychromasia 1+, Hypochromasia 2+, Poikilocytosis SL., Anisocytosis 1+, PUBS MCHC 28.8 L, MCH 25.3 L Vital Signs Date Time Temp Pulse Resp B/P Pulse O2 O2 Flow FiO2 Ox Delivery Rate 12/01 0640 2 12/01 0546 2 12/01 0546 98 OXYGEN 12/01 0500 2 12/01 0500 97.2 116 22 137/84 99 OXYGEN 2 12/01 0457 22 12/01 0400 97.2 118 24 93/68 100 2 12/01 0300 121 22 112/80 95 OXYGEN 2 12/01 0256 2 12/01 0200 2 12/01 0100 2 12/01 010 97.5 101 22 112/66 99 OXYGEN 2 12/01 0000 2 12/01 0000 121 20 110/82 99 OXYGEN 2 11/30 2305 2 11/300 114 22 134/87 100 OXYGEN 2 11/30 2133 22 11/30 2129 2 11/30 2129 2 11/30 2100 99 22 115/80 100 OXYGEN 2 12/01 2003 97.9 105 22 112/71 100 2 11/30 2000 97.9 105 22 112/71 100 OXYGEN 2 11/30 1900 97.6 101 22 140/79 99 OXYGEN 2 11/30 1842 2 11/30 1800 97.7 94 22 86/60 94 OXYGEN 2 11/30 1700 97.6 92 22 113/65 94 OXYGEN 2 11/30 1500 97.6 95 22 120/77 94 OXYGEN 2 11/30 1305 94 OXYGEN 2 11/30 1300 2 11/30 1300 97.6 97 22 104/65 99 OXYGEN 2 11/30 1100 97.7 84 22 113/69 99 OXYGEN 2 11/30 0900 2 11/30 0900 97.6 78 22 93/59 99 OXYGEN 2 11/30 0900 97.6 79 22 93/59 99 2 11/30 0819 22 11/30 0800 97.6 107 22 126/74 99 OXYGEN 2 Current Medications Polyethylene Glycol 17 GM PRN PRN PO (UNV) Lorazepam 0 .STK-MED ONE .ROUTE (DC) Metoprolol Tartrate 0 .STK-MED ONE .ROUTE (DC) Metoprolol Tartrate 25 MG ONCE ONE PO (DC) Lorazepam 0 .STK-MED ONE .ROUTE (DC) Vancomycin HCl 1,750 MG Q48H IV Sodium Chloride 250 ML Diltiazem HCl 60 MG Q6H6 PO Lorazepam 0 .STK-MED ONE .ROUTE (DC) Vancomycin HCl 1,750 MG Q24H IV (DC) Sodium Chloride 250 ML Furosemide 40 MG BIDL IV (DC) Diltiazem HCl 100 MG .Q10H IV (DC) Sodium Chloride 100 ML Polyethylene Glycol 17 GM DAILY PO (DC) Bisacodyl 10 MG DAILYP PRN PO Piperacillin Sod/Tazobactam Sod 4.5 GM Q6 IV Sodium Chloride 100 ML Levalbuterol HCl 1.25 MG TIDRT INH Ondansetron HCl 4 MG Q6HP PRN IV Spironolactone 100 MG DAILY PO Sodium Chloride 10 ML PRN PRN IV Amlodipine Besylate 2.5 MG DAILY PO Famotidine 20 MG DAILY PO Guaifenesin/Dextromethorphan 10 ML Q4HP PRN PO Ferrous Sulfate 325 MG BID PO Metoprolol Tartrate 25 MG BID PO Potassium Chloride 20 MEQ TID PO Risperidone 0.5 MG BID PO Acetaminophen 500 MG Q4HP PRN PO (CKDr) Lorazepam 0.5 MG QIDP PRN PO Sodium Chloride 10 ML PRN PRN IV Influenza Virus Vaccine Quadrival 0.5 ML PRN PRN IM 11/30 1500 11/30 2300 12/01 0700 Intake Total 960 440 Output Total 1250 Balance 960 -810 Intake, IV 200 Intake, Oral 960 240 Output, Other 1250 Output, Stool Patient 252 lb Weight Last VS-Temp:97.2 B/P:137/84 Pulse:116 Resp:22 SaO2:98 OXYGEN Last weight lbs:252 oz:2 K.362 Method:Bed Scales Exam General appearance: alert, awakened during the exam; answers questions appropriately; assisted with turning and did not moan ENT: dry mucous membranes Cardiovascular: irregularly irregular, At fib noted on monitor with V rate 90 -100; 110 with movement Respiratory: clear to auscultation (bilat anterior and posterior), better air movement; Increase in RR with any activity ABD: soft, bowel sounds present, distended, continues to drain large amount of fluid into bag Extremities: much less leg edema Skin: dry Neuro: alert Assessment/Plan Problem List 1. HCAP (healthcare-associated pneumonia) 2. CHF (congestive heart failure) 3. E. coli UTI Status: Acute 4. Staphylococcus aureus bacteremia without sepsis Status: Acute 5. Acute renal insufficiency Status: Acute 6. Cirrhosis Status: Acute 7. Ascites 8. Weakness Status: Acute 9. Elevated LFTs Status: Acute 10. Left shoulder pain Status: Acute 11. Essential hypertension Status: Chronic 12. Anemia Status: Chronic 13. Lower extremity edema Status: Chronic 14. Atrial fibrillation Status: Chronic 15. Uncontrolled atrial fibrillation 16. Debility 17. Hypotension Status: Acute Patient condition Guarded Plan: make medication changes, discussed with Candy about knee brace to keep right knee straight; she will call orthopedic about this and will leave off for now; will make Miralax prn due to loose stools; lasix DC for now due to low BP. Make O2 prn; O2 sats 94 and > without This inpt stay is expected to cross 2 MNs from start of care Yes (Anne Traore APRN) Subjective Date 12/01/16 Assessment/Plan Problem List 1. HCAP (healthcare-associated pneumonia) 2. CHF (congestive heart failure) 3. E. coli UTI Status: Acute 4. Staphylococcus aureus bacteremia without sepsis Status: Acute 5. Acute renal insufficiency Status: Acute 6. Cirrhosis Status: Acute 7. Ascites 8. Weakness Status: Acute 9. Elevated LFTs Status: Acute 10. Left shoulder pain Status: Acute 11. Essential hypertension Status: Chronic 12. Anemia Status: Chronic 13. Lower extremity edema Status: Chronic 14. Atrial fibrillation Status: Chronic 15. Uncontrolled atrial fibrillation 16. Debility 17. Hypotension Status: Acute Plan: Pt seen and examined this AM. Clinically looks about the same. HR controlled for the most part. BS still diminished in right lung. Abdomen distended but soft and NT. Still leaking peritoneal fluid from previous puncture site. GI to f/u today. Will repeat CXR and check Echo. (Harinder Husain MD) at 0807 at 2130
--- NOTE | 2016-12-01 12:04 | CONSULT NOTE ---
Dr. Lloyd' Consult History: History of Present Illness: f/u Cirrhosis. Pt is a 71 year old male admitted last week with E. Coli UTI and advanced lethergy/malaise. He was found to have cirrhosis which was unknown per CT imaging. The pt did have evident Ascites and Paracentisis was preformed on with 8 L removed, however, no albumin was given despite specific orders by myself and radiologist. The pt has rapidly reaccumulated and is actually "draining" from puncture site. The pt does have pedal edema and has developed Hospital acquired PNA and is on numerous IV ABX. The pt liver work up was neg for viral or autoimmune hepatitis. He did have elevated IgG/IgA levels. Past Medical History: Medical History: CAD? No Angina: Yes [place]: No Hypertension? Yes Hyperlipidemia? Yes CHF? Yes DVT? No PE? No COPD? No Asthma? No Anemia? Yes GERD? Yes Hernia? No Thyroid Problems? Yes Hypothyroidism? No CVA? No Seizures? No Diabetes? No Renal Insuffiency? No UTI? No Stones? No GB Disease: No Nephritic Syndrome? No Asplenia? No Hepatitis? No Sickle Cell Disease? No Arthritis? No Cataracts? Yes Glaucoma? No MRSA? No TB? No Anxiety? No Depression? No Cancer? No More? Yes Additional hx: 1. SHARKO FOOT 2. AFIB 3. TIA 4. MENTAL RETARDATION Surgical history: Previous Surgery?Y RIGHT KNEE APPY DULCE CATARACTS CARDIAC CATH WITH STENT Medications: Active Scripts Ferrous Sulfate (Ferrous Sulfate 325MG) 325 MG PO BID #30 TAB Ref 4 Prov: 09/04/15 Lovastatin 40 MG PO QHS #30 TAB Ref 3 Prov: 09/04/15 ASPIRIN (Aspirin) 81 MG PO DAILY #30 TABLET Ref 2 Prov: 09/04/15 Reported Medications Clopidogrel Bisulfate (Plavix) 75 MG PO DAILY #30 TAB Ref 2 Metolazone (Metolazone 5MG Tablet) 5 MG PO DAILY Amlodipine Besylate 2.5 MG PO DAILY Cyanocobalamin (Vitamin B-12) (B-12) 500 MCG PO DAILY Famotidine (Pepcid 20MG) 20 MG PO DAILY Metoprolol Tartrate 25 MG PO BID Potassium Chloride (Klor-Con M20) 40 MEQ PO TID OXYCODONE HCL (Oxycodone Hydrochloride) 5 MG PO Q4HP PRN PAIN Acetaminophen (Acetaminophen Extra Strength) 1,000 MG PO Q6HP PRN PAIN CHOLECALCIFEROL (VITAMIN D3) (Vitamin D) 1 TAB PO DAILY Furosemide (Lasix 40MG) 40 MG PO BID Risperidone (Risperdal 0.5 Mg Tablet) 0.5 MG PO BID Lorazepam (Ativan) 0.5 MG PO QID PRN ANXIETY Ezetimibe 10 MG PO QHS Allergies: Coded Allergies: No Known Allergies (07/18/15) Family History: Family history: Postive for: unknown. Social History: Smoking Hx Tobacco: No Smoker: Never Smoker Type: N/A Packs/day: N/A Are you exposed to second hand No Alcohol: Alcohol: No Hx of Drug Use: Drug Use? No Physical Exam: Vital signs: 1ST Vital Signs Result Date Time Pulse Ox 94 11/21 1055 B/P 123/90 11/21 1055 Temp 97.8 11/21 1055 Pulse 103 11/21 1055 Resp 20 11/21 1055 O2 Delivery ROOM AIR 11/21 1511 O2 Flow Rate 2 11/29 0249 Exam: General appearance: normal appearance, alert Eyes: normal exam ENT: normal exam Neck: normal inspection Cardiovascular: tachycardia Respiratory: diminished breath sounds, rhonchi ABD: distended Extremities: edema Musculoskeletal: normal exam Skin: normal exam Neuro: normal exam Lab data: Labs: Laboratory Tests 12/01/16 0420: Sodium 140, Potassium 4.8, Chloride 107, Carbon Dioxide 26, BUN 37 H, Creatinine 1.2, Estimated Creat Clear 90, Estimated GFR (MDRD) 59, Glucose 101, Calcium 8.4 L, Total Bilirubin 0.8, AST 25, ALT 26, Alkaline Phosphatase 348 H , Total Protein 6.1 L, Albumin 1.4 L, Globulin 4.7 H, Albumin/Globulin Ratio 0.3 L, WBC 15.0 H, RBC 3.79 L, Hgb 9.6 L, Hct 33.3 L, MCV 87.9, RDW 17.4, Plt Count 371, MPV 7.6, Gran % 72.3, Gran # 10.9 H, Total Counted 100, Lymphocytes % 11.1, Monocytes % 15.9 H, Eosinophils % 0.4, Basophils % 0.2, Neutrophils 85 H, Band Neutrophils 4, Lymphocytes (Manual) 8 L, Lymphocytes # 1.7, Monocytes (Manual) 3, Monocytes # 2.4 H, Eosinophils # 0.1, Basophils # 0.0, Platelet Estimate NORMAL, Polychromasia 1+, Hypochromasia 2+, Poikilocytosis SL., Anisocytosis 1+, PUBS MCHC 28.8 L, MCH 25.3 L Diagnosis(es): 1. HCAP (healthcare-associated pneumonia) 2. CHF (congestive heart failure) 3. E. coli UTI Status: Acute 4. Staphylococcus aureus bacteremia without sepsis Status: Acute 5. Acute renal insufficiency Status: Acute 6. Cirrhosis Status: Acute 7. Ascites 8. Weakness Status: Acute 9. Elevated LFTs Status: Acute 10. Left shoulder pain Status: Acute 11. Essential hypertension Status: Chronic 12. Anemia Status: Chronic 13. Lower extremity edema Status: Chronic 14. Atrial fibrillation Status: Chronic 15. Uncontrolled atrial fibrillation 16. Debility 17. Hypotension Status: Acute Plan: 1.) Cirrhosis -Decompensated; Pt is currently under treatment for PNA and UTI, Will assist with recommendation for Lasix 40mg BID and Spironolactone 100mg daily. Repeat Paracentisis WITH ALBUMIN REPLACEMENT IF MORE THAN 4L REMOVED. Will f/u when pt stable as an outpt. His mortality at this time given numerous health concerns is very high. He has normal AST/ALT but Alk phos remains elevated at 348. This may be due to drug injury or other etiology, however, full evaluation will be deferred until pt is stable and off ABX (GAGAN DICKEY APRN) Diagnosis(es): 1. HCAP (healthcare-associated pneumonia) 2. CHF (congestive heart failure) 3. E. coli UTI Status: Acute 4. Staphylococcus aureus bacteremia without sepsis Status: Acute 5. Acute renal insufficiency Status: Acute 6. Cirrhosis Status: Acute 7. Ascites 8. Weakness Status: Acute 9. Elevated LFTs Status: Acute 10. Left shoulder pain Status: Acute 11. Essential hypertension Status: Chronic 12. Anemia Status: Chronic 13. Lower extremity edema Status: Chronic 14. Atrial fibrillation Status: Chronic 15. Uncontrolled atrial fibrillation 16. Debility 17. Hypotension Status: Acute Plan: The patient is in acute/chronic liver failure with decompensation. I would treat symptomatically and continue large volume paracentesis as long as his renal function permits. He is not a candidate for corticosteroids. Overall, his short and long-term/mortality is very high. (ARIEL LLOYD) at 1204 at [id number]
--- NOTE | 2016-12-01 14:14 | RADIOLOGY REPORT PS360 ---
CHEST-PORTABLE HISTORY: f/u pneumonia Patient Age: 71 years: Male Ordering Physician: Harinder Husain MD TECHNIQUE: AP portable upright chest COMPARISON :11/28/2016 upright chest FINDINGS Chest rotated the left slightly distorts the chest Right pleural effusion has progressed. This large right pleural effusion yields Significant Decreased volume of remaining aerated lung on right. Progressiveatelectasis results from the these changes. Additional Airspace disease and atelectasis, particularly evident at the are which now partially obscures right hemidiaphragm. Left lung appears fairly stable with mild atelectasis left lung base left upper lung finn clear. Mild cardiomegaly. No additional vascular congestion or overt CHF. court monitor leads to place Right PICC line again noted. IMPRESSION: Significant progression of pleural effusion at the right chest Large right pleural effusion Resultant significant decrease volume of remaining aerated right lung. Progressive airspace disease & atelectasis right lung-most pronounced at the RLL,. This now obscuring right hemidiaphragm Mild cardiomegaly.
--- NOTE | 2016-12-01 14:14 | RADIOLOGY REPORT PS360 ---
CHEST-PORTABLE HISTORY: f/u pneumonia Patient Age: 71 years: Male Ordering Physician: Harinder Husain MD TECHNIQUE: AP portable upright chest COMPARISON :11/28/2016 upright chest FINDINGS Chest rotated the left slightly distorts the chest Right pleural effusion has progressed. This large right pleural effusion yields Significant Decreased volume of remaining aerated lung on right. Progressiveatelectasis results from the these changes. Additional Airspace disease and atelectasis, particularly evident at the are which now partially obscures right hemidiaphragm. Left lung appears fairly stable with mild atelectasis left lung base left upper lung finn clear. Mild cardiomegaly. No additional vascular congestion or overt CHF. patient safety attendant leads to place Right PICC line again noted. IMPRESSION: Significant progression of pleural effusion at the right chest Large right pleural effusion Resultant significant decrease volume of remaining aerated right lung. Progressive airspace disease & atelectasis right lung-most pronounced at the RLL,. This now obscuring right hemidiaphragm Mild cardiomegaly.
--- NOTE | 2016-12-01 19:13 | RADIOLOGY REPORT PS360 ---
PROCEDURE: 2-D M-mode and color Doppler study INDICATIONS FOR THE TEST: Chest pain COPD Heart Murmur Tobacco Smoking Palpitations Fatigue Syncope Edema+ Hypertension+Diabetes Mellitus Rheumatic Fever SOB+WILLIS Obesity Hyperlipidemia+ Family History HD Additional History CHF, CIRRHOSIS, STENT, PERICARDIAL EFFUSION 2014, PARACENTESIS 11/27/16. PATIENT INFORMATION HEIGHT: 70 WEIGHT:252 GENDER: Male B/P:137/84 2-D/M-MODE INTERPRETATION: 2-D MEASUREMENTS OBSERVED VALUES IN CMS Right Ventricular Dimension (RVDd) 3.8 Interventricular Septum (Thickness)(IVsd) 1.8 Left Ventricular Internal Dimensions(LVIDd) 5.1 Left Ventricular Posterior Wall (Thickness)(LVPWd) 1.4 Aortic Root 3.8 Aortic Cusp Separation 1.7 Left Atrial Dimensions (LAD) 5.3 2D 1. Left atrium is moderately enlarged, left ventricle is normal size, there is mild concentric left ventricular hypertrophy, visually estimated ejection fraction approximately 40%, left ventricle is globally hypokinetic, there is abnormal septal motion. 2. The right atrium and right ventricle are moderately enlarged, contractility of the right ventricle is mildly reduced. 3. The aortic valve is thickened and calcified, leaflet leaflet continue to display mobility. 4. The mitral and tricuspid valve leaflets are thickened. 5. The pulmonic valve is poorly visualized. 6. There is trivial pericardial effusion noted. DOPPLER INTERROGATION: Doppler interrogation of the aortic, mitral and tricuspid valvular presence of mild mitral and tricuspid regurgitation, calculated right ventricular systolic pressure is 47 mmHg consistent with moderate pulmonary hypertension, mild aortic insufficiency is also seen. CONCLUSION: 1. Moderate biatrial enlargement, normal left ventricular size, mild concentric left ventricular hypertrophy, visually estimated ejection fraction approximately 40%, there is abnormal septal motion. 2. Moderately enlarged right ventricle with mild reduced contractility. 3. Thickened and calcified aortic valve without Doppler evidence of significant aortic stenosis, there is mild aortic insufficiency present. 4. Mild mitral and tricuspid regurgitation, calculated right ventricular systolic pressure 47 mmHg consistent with moderate pulmonary hypertension. 5. Trivial pericardial effusion noted.
[2016-12-02] VITALS (19 sets, daily range): BP systolic 94–129; BP diastolic 52–89
--- NOTE | 2016-12-02 07:43 | ACUTE CARE PROGRESS NOTE (QUA) ---
Progress Notes Subjective Date 12/02/16 Time 0729 Note Per patient-did not sleep well last night ; SOB; denies pain Per nursing notes-SOB during the night ; had extra dose 80mg lasix IV. large amount drainage from paracentesis site; NPO for repeat today; incontinent of urine; weight loss noted; had addition loose stool; eating poorly. GI note reviewed. Will receive additional Albumen today. CXR with large right pleural effusion Objective Findings Vital Signs Date Time Temp Pulse Resp B/P Pulse O2 O2 Flow FiO2 Ox Delivery Rate 12/02 0603 2 12/02 0603 95 OXYGEN 2 12/02 0430 97 22 117/65 92 ROOM AIR 12/02 0337 22 12/02 0013 98.0 98 22 125/78 93 ROOM AIR 12/01 2358 24 12/01 1929 97.7 98 24 110/68 93 12/01 192 97.7 98 24 110/68 93 ROOM AIR 12/01 1910 2 12/01 1910 92 ROOM AIR 12/01 1600 97.8 102 22 119/84 95 12/01 1400 102 22 119/84 95 ROOM AIR 12/01 1323 97 OXYGEN 2 12/01 1200 113 20 116/76 100 ROOM AIR 12/01 1000 104 20 104/69 97 OXYGEN 2 12/01 0915 2 12/01 0801 97.8 98 22 124/57 98 OXYGEN 2 12/01 0801 97.8 98 22 124/57 98 2 Current Medications Vancomycin HCl 1,750 MG Q48H IV (UNV) Sodium Chloride 250 ML Amlodipine Besylate 2.5 MG DAILY PO (UNV) Famotidine 20 MG DAILY PO (UNV) Spironolactone 100 MG DAILY PO (UNV) Furosemide 40 MG BIDL PO (UNV) Furosemide 80 MG ONCE ONE IV (DC) Furosemide 0 .STK-MED ONE .ROUTE (DC) Piperacillin Sod/Tazobactam Sod 4.5 GM Q6 IV (UNV) Sodium Chloride 100 ML Ferrous Sulfate 325 MG BID PO (UNV) Metoprolol Tartrate 25 MG BID PO (UNV) Potassium Chloride 20 MEQ TID PO (UNV) Risperidone 0.5 MG BID PO (UNV) Levalbuterol HCl 1.25 MG TIDRT INH (UNV) Acetaminophen 500 MG Q4HP PRN PO (UNVr) Bisacodyl 10 MG DAILYP PRN PO (UNV) Diltiazem HCl 60 MG Q6H6 PO (UNV) Guaifenesin/Dextromethorphan 10 ML Q4HP PRN PO (UNV) Influenza Virus Vaccine Quadrival 0.5 ML PRN PRN IM (UNV) Lorazepam 0.5 MG QIDP PRN PO (UNV) Ondansetron HCl 4 MG Q6HP PRN IV (UNV) Polyethylene Glycol 17 GM DAILYP PRN PO (UNV) Sodium Chloride 10 ML PRN PRN IV (UNV) Sodium Chloride 10 ML PRN PRN IV (UNV) Furosemide 40 MG BIDL PO (DC) Guaifenesin/Dextromethorphan 0 .STK-MED ONE .ROUTE (DC) Polyethylene Glycol 17 GM DAILYP PRN PO (DC) Vancomycin HCl 1,750 MG Q48H IV Sodium Chloride 250 ML Diltiazem HCl 60 MG Q6H6 PO (DC) Furosemide 40 MG BIDL IV (DC) Polyethylene Glycol 17 GM DAILY PO (DC) Bisacodyl 10 MG DAILYP PRN PO (DC) Piperacillin Sod/Tazobactam Sod 4.5 GM Q6 IV (DC) Sodium Chloride 100 ML Levalbuterol HCl 1.25 MG TIDRT INH (DC) Ondansetron HCl 4 MG Q6HP PRN IV (DC) Spironolactone 100 MG DAILY PO (DC) Sodium Chloride 10 ML PRN PRN IV (DC) Amlodipine Besylate 2.5 MG DAILY PO (DC) Famotidine 20 MG DAILY PO (DC) Guaifenesin/Dextromethorphan 10 ML Q4HP PRN PO (DC) Ferrous Sulfate 325 MG BID PO (DC) Metoprolol Tartrate 25 MG BID PO (DC) Potassium Chloride 20 MEQ TID PO (DC) Risperidone 0.5 MG BID PO (DC) Acetaminophen 500 MG Q4HP PRN PO (DCr) Lorazepam 0.5 MG QIDP PRN PO (DC) Sodium Chloride 10 ML PRN PRN IV (DC) Influenza Virus Vaccine Quadrival 0.5 ML PRN PRN IM (DC) 12/01 1500 12/01 2300 12/02 0700 Intake Total 120 340 220 Output Total 1100 480 Balance 120 -760 -260 Intake, IV 220 220 Intake, Oral 120 120 Output, Other 1100 480 Output, Urine Patient 245 lb Weight Last VS-Temp:98.0 B/P:117/65 Pulse:97 Resp:22 SaO2:95 ROOM AIR Last weight lbs:245 oz:7 K.329 Method:Bed Scales 12/01/16 CXR IMPRESSION: Significant progression of pleural effusion at the right chest Large right pleural effusion Resultant significant decrease volume of remaining aerated right lung. Progressive airspace disease & atelectasis right lung-most pronounced at the RLL,. This now obscuring right hemidiaphragm 12/01/16 ECHO CONCLUSION: 1. Moderate biatrial enlargement, normal left ventricular size, mild concentric left ventricular hypertrophy, visually estimated ejection fraction approximately 40%, there is abnormal septal motion. 2. Moderately enlarged right ventricle with mild reduced contractility. 3. Thickened and calcified aortic valve without Doppler evidence of significant aortic stenosis, there is mild aortic insufficiency present. 4. Mild mitral and tricuspid regurgitation, calculated right ventricular systolic pressure 47 mmHg consistent with moderate pulmonary hypertension. 5. Trivial pericardial effusion noted. Exam General appearance: alert, Breathing appears easier with HOB elevated Cardiovascular: irregularly irregular Respiratory: very diminished BS on the right ABD: soft, no tenderness, bowel sounds present, draining fluid from puncture site into bag Genitourinary: incontinent of urine Extremities: legs are soft with decreased edema; some edema of the feet. left arm edema is minimal Neuro: alert, speaking softly but can understand Assessment/Plan Problem List 1. HCAP (healthcare-associated pneumonia) 2. CHF (congestive heart failure) 3. E. coli UTI Status: Acute 4. Staphylococcus aureus bacteremia without sepsis Status: Acute 5. Acute renal insufficiency Status: Acute 6. Cirrhosis Status: Acute 7. Ascites 8. Weakness Status: Acute 9. Elevated LFTs Status: Acute 10. Left shoulder pain Status: Acute 11. Essential hypertension Status: Chronic 12. Anemia Status: Chronic 13. Lower extremity edema Status: Chronic 14. Atrial fibrillation Status: Chronic 15. Uncontrolled atrial fibrillation 16. Debility 17. Hypotension Status: Acute Patient condition Guarded Plan: for paracentesis and will receive additional albumen; will continue ABX and diuresis; will discuss pleural effusion with Dr. Husain This inpt stay is expected to cross 2 MNs from start of care Yes (Anne Traore APRN) Subjective Date 12/03/16 Assessment/Plan Problem List 1. HCAP (healthcare-associated pneumonia) 2. CHF (congestive heart failure) 3. E. coli UTI Status: Acute 4. Staphylococcus aureus bacteremia without sepsis Status: Acute 5. Acute renal insufficiency Status: Acute 6. Cirrhosis Status: Acute 7. Ascites 8. Weakness Status: Acute 9. Elevated LFTs Status: Acute 10. Left shoulder pain Status: Acute 11. Essential hypertension Status: Chronic 12. Anemia Status: Chronic 13. Lower extremity edema Status: Chronic 14. Atrial fibrillation Status: Chronic 15. Uncontrolled atrial fibrillation 16. Debility 17. Hypotension Status: Acute 18. Pleural effusion on right 19. Bradycardia Plan: Pt seen and examined. Concur with above assessment and plan. (Harinder Husain MD) at 0742 at 0893
--- NOTE | 2016-12-02 15:38 | CONSULT NOTE ---
Pharmacokinetic Consult Date of consult: 12/02/16 Time of consult: 1536 Referring provider: DR. JORDAN Reason for consult: VANCOMYCIN TROUGH LEVEL Allergies: Coded Allergies: No Known Allergies (07/18/15) Home Medications: Active Scripts Ferrous Sulfate (Ferrous Sulfate 325MG) 325 MG PO BID #30 TAB Ref 4 Prov: 09/04/15 Lovastatin 40 MG PO QHS #30 TAB Ref 3 Prov: 09/04/15 ASPIRIN (Aspirin) 81 MG PO DAILY #30 TABLET Ref 2 Prov: 09/04/15 Reported Medications Clopidogrel Bisulfate (Plavix) 75 MG PO DAILY #30 TAB Ref 2 Metolazone (Metolazone 5MG Tablet) 5 MG PO DAILY Amlodipine Besylate 2.5 MG PO DAILY Cyanocobalamin (Vitamin B-12) (B-12) 500 MCG PO DAILY Famotidine (Pepcid 20MG) 20 MG PO DAILY Metoprolol Tartrate 25 MG PO BID Potassium Chloride (Klor-Con M20) 40 MEQ PO TID OXYCODONE HCL (Oxycodone Hydrochloride) 5 MG PO Q4HP PRN PAIN Acetaminophen (Acetaminophen Extra Strength) 1,000 MG PO Q6HP PRN PAIN CHOLECALCIFEROL (VITAMIN D3) (Vitamin D) 1 TAB PO DAILY Furosemide (Lasix 40MG) 40 MG PO BID Risperidone (Risperdal 0.5 Mg Tablet) 0.5 MG PO BID Lorazepam (Ativan) 0.5 MG PO QID PRN ANXIETY Ezetimibe 10 MG PO QHS Height (feet): 6 Height (inches): 5.00 Medical History: CAD? No Angina: Yes SD: No Hypertension? Yes Hyperlipidemia? Yes CHF? Yes DVT? No PE? No COPD? No Asthma? No Anemia? Yes GERD? Yes Hernia? No Thyroid Problems? Yes Hypothyroidism? No CVA? No Seizures? No Diabetes? No Renal Insuffiency? No UTI? No Stones? No GB Disease: No Nephritic Syndrome? No Asplenia? No Hepatitis? No Sickle Cell Disease? No Arthritis? No Cataracts? Yes Glaucoma? No MRSA? No TB? No Anxiety? No Depression? No Cancer? No More? Yes Additional hx: 1. SHARKO FOOT 2. AFIB 3. TIA 4. MENTAL RETARDATION Labs: Laboratory Tests 12/02/16 1330: Vancomycin Trough 14.0 H Problem List: 1. HCAP (healthcare-associated pneumonia) Plan: BASED ON VANCOMYCIN TROUGH LEVEL AND PATIENT FACTORS, RECOMMEND CONTINUING VANCOMYCIN 1750 MG IV Q48H. PHARMACY WILL CONTINUE TO MONITOR AND ADJUST APPROPRIATE. at [phone]
[2016-12-03] VITALS (14 sets, daily range): BP systolic 80–116; BP diastolic 47–70
[2016-12-03 07:09] LABS: HEMOGLOBIN 9.1 g/dL (14.1-18.0); LYMPH # 1.1 K/mm3 (0.7-4.5); LYMPH % 8.2 % (10-50)
--- NOTE | 2016-12-03 08:00 | RADIOLOGY REPORT PS360 ---
US BIOPSY OR PARACENTESIS HISTORY: Ascites with probable breathing and abdominal distention ORDERING PHYSICIAN: Harinder Husain MD PATIENT AGE: 71 years COMPARISON: None PROCEDURE: Following obtaining informed consent and after appropriate Time out, under aseptic conditions and local anesthesia with 1% buffered lidocaine using sonographic guidance a 4 Polish one-step catheter was inserted into the largest pocket of fluid localized in the right lower quadrant. Approximately 6200 mL of Serosanguineous fluid was drained. The patient tolerated the procedure well without evidence of immediate complication. IMPRESSION: Successful sonographic guided paracentesis without complication
--- NOTE | 2016-12-03 08:26 | ACUTE CARE PROGRESS NOTE (QUA) ---
Progress Notes Subjective Date 12/03/16 Time 0808 Note States he is not doing well this AM; He is having pain cross his anterior chest and states is breathing is not good; he also states his abdomen is hurting; he is not hungry Weight decrease noted with high of 274 and low today at 230; Creatinine slightly elevted at 1.4. Nursing reports: low BP; brief decrease in HR Objective Findings Laboratory Tests 12/03/16 0630: Sodium 137, Potassium 5.0, Chloride 105, Carbon Dioxide 26, BUN 37 H, Creatinine 1.4 H, Estimated Creat Clear 69, Estimated GFR (MDRD) 50, Glucose 118 H, Calcium 8.1 L, WBC 12.9 H, RBC 3.56 L, Hgb 9.1 L, Hct 31.4 L, MCV 88.0, RDW 18.1 H, Plt Count 323, MPV 7.6, Gran % 74.1, Gran # 9.6 H, Lymphocytes % 8.2 L, Monocytes % 16.9 H, Eosinophils % 0.4, Basophils % 0.3, Lymphocytes # 1.1, Monocytes # 2.2 H, Eosinophils # 0.1, Basophils # 0.0, PUBS MCHC 29.1 L, MCH 25.6 L 12/02/16 1330: Vancomycin Trough 14.0 H Vital Signs Date Time Temp Pulse Resp B/P Pulse O2 O2 Flow FiO2 Ox Delivery Rate 12/03 0650 2 12/03 0619 2 12/03 0604 2 12/03 0604 96 OXYGEN 2 12/03 0500 2 12/03 0340 2 12/03 0340 97.5 80 23 116/69 95 OXYGEN 2 12/03 0300 2 12/02 2354 97.5 82 22 112/70 94 ROOM AIR 12/02 2034 2 12/02 1950 97.8 85 22 122/89 92 ROOM AIR 12/02 1924 97.8 78 25 122/89 95 12/02 1532 96.8 69 20 96/59 100 ROOM AIR 12/02 1530 98.4 59 22 96/59 95 ROOM AIR 12/02 1526 32 16 95/52 12/02 1500 72 20 111/62 96 ROOM AIR 12/02 1430 98.4 79 20 124/75 96 ROOM AIR 12/02 1400 104 20 129/85 95 ROOM AIR 12/02 1330 98.0 90 22 105/67 95 ROOM AIR 12/02 1315 98.1 99 20 119/67 97 OXYGEN 2 12/02 1300 98.1 88 20 116/88 97 OXYGEN 2 12/02 1245 98.2 88 20 101/58 99 OXYGEN 2 12/02 1228 18 12/02 1200 98.1 104 22 105/61 96 OXYGEN 2 12/02 1128 97.6 92 18 109/73 96 OXYGEN 2 12/02 1016 97.9 101 20 124/75 100 Current Medications Diltiazem HCl 60 MG Q8 PO Bacitracin/Polymyxin B Sulfate 0.9 GM ONCE ONE TP (DC) Lidocaine HCl 10 ML ONCE ONE IJ (DC) Sodium Bicarbonate 4 ML ONCE ONE IJ (DC) Vancomycin HCl 1,750 MG Q48H IV Sodium Chloride 250 ML Albumin Human 7 GM ONCE ONE IV (DC) Acetaminophen 0 .STK-MED ONE PO (DCr) Guaifenesin/Dextromethorphan 0 .STK-MED ONE .ROUTE (DC) Lorazepam 0 .STK-MED ONE .ROUTE (DC) Amlodipine Besylate 2.5 MG DAILY PO (DC) Famotidine 20 MG DAILY PO Nystatin 0 QID TP Spironolactone 100 MG DAILY PO Furosemide 40 MG BIDL PO Piperacillin Sod/Tazobactam Sod 4.5 GM Q6 IV Sodium Chloride 100 ML Ferrous Sulfate 325 MG BID PO Metoprolol Tartrate 25 MG BID PO Potassium Chloride 20 MEQ TID PO Risperidone 0.5 MG BID PO Levalbuterol HCl 1.25 MG TIDRT INH Acetaminophen 500 MG Q4HP PRN PO (CKDr) Bisacodyl 10 MG DAILYP PRN PO Diltiazem HCl 60 MG Q6H6 PO (DC) Guaifenesin/Dextromethorphan 10 ML Q4HP PRN PO Influenza Virus Vaccine Quadrival 0.5 ML PRN PRN IM Lorazepam 0.5 MG QIDP PRN PO Ondansetron HCl 4 MG Q6HP PRN IV Polyethylene Glycol 17 GM DAILYP PRN PO Sodium Chloride 10 ML PRN PRN IV Sodium Chloride 10 ML PRN PRN IV Vancomycin HCl 1,750 MG Q48H IV (DC) Sodium Chloride 250 ML 12/02 1500 12/02 2300 12/03 0700 Intake Total 360 710 Output Total Balance 360 710 Intake, IV 350 Intake, Oral 360 360 Output, Stool Patient 230 lb Weight Last VS-Temp:97.5 B/P:116/69 Pulse:80 Resp:23 SaO2:96 OXYGEN Last weight lbs:230 oz:2 K.383 Method:Bed Scales Paracentesis 12/02/16 HISTORY: Ascites with probable breathing and abdominal distention ORDERING PHYSICIAN: Harinder Husain MD PATIENT AGE: 71 years COMPARISON: None PROCEDURE: Following obtaining informed consent and after appropriate Time out, under aseptic conditions and local anesthesia with 1% buffered lidocaine using sonographic guidance a 4 Norwegian one-step catheter was inserted into the largest pocket of fluid localized in the right lower quadrant. Approximately 6200 mL of Serosanguineous fluid was drained. The patient tolerated the procedure well without evidence of immediate complication. IMPRESSION: Successful sonographic guided paracentesis without complication Exam General appearance: alert, answers questions appropriately Cardiovascular: irregularly irregular, monitor showing At Fib with V rate in 80's; rhythm strips show low v rate in 30's Respiratory: diminished BS on the right, chest is TTP across entire anterior chest wall ABD: soft, no tenderness, bowel sounds present, less distention Extremities: bilateral leg edema > on the left Neuro: alert Reviewed: medications, vital signs, lab results, radiology report, nursing notes Assessment/Plan Problem List 1. HCAP (healthcare-associated pneumonia) 2. CHF (congestive heart failure) 3. E. coli UTI Status: Acute 4. Staphylococcus aureus bacteremia without sepsis Status: Acute 5. Acute renal insufficiency Status: Acute 6. Cirrhosis Status: Acute 7. Ascites 8. Weakness Status: Acute 9. Elevated LFTs Status: Acute 10. Left shoulder pain Status: Acute 11. Essential hypertension Status: Chronic 12. Anemia Status: Chronic 13. Lower extremity edema Status: Chronic 14. Atrial fibrillation Status: Chronic 15. Uncontrolled atrial fibrillation 16. Debility 17. Hypotension Status: Acute 18. Pleural effusion on right 19. Bradycardia Patient condition Guarded Plan: continue current care, thoracentesis planned for today This inpt stay is expected to cross 2 MNs from start of care Yes (Anne Traore APRN) Subjective Date 12/03/16 Time 0900 Assessment/Plan Problem List 1. HCAP (healthcare-associated pneumonia) 2. CHF (congestive heart failure) 3. E. coli UTI Status: Acute 4. Staphylococcus aureus bacteremia without sepsis Status: Acute 5. Acute renal insufficiency Status: Acute 6. Cirrhosis Status: Acute 7. Ascites 8. Weakness Status: Acute 9. Elevated LFTs Status: Acute 10. Left shoulder pain Status: Acute 11. Essential hypertension Status: Chronic 12. Anemia Status: Chronic 13. Lower extremity edema Status: Chronic 14. Atrial fibrillation Status: Chronic 15. Uncontrolled atrial fibrillation 16. Debility 17. Hypotension Status: Acute 18. Pleural effusion on right 19. Bradycardia Plan: Pt seen and examined. He is not as alert today. Last dose of Ativan was around noon yesterday. He is scheduled for thoracentesis today. Has had some bradycardia and parameters added to medication administration. Possible discharge to [facility] tomorrow. Discussed detention prognosis with family and possibility of Hospice Care. (Harinder Husain MD) at 0825 at 0904
[2016-12-03 13:55] LABS: BODY FLUID MONONUCLEAR 49 %; BODY FLUID POLY 51 %; BODY FLUID RBC 41 /mm3; BODY FLUID WBC 1433 MM
--- NOTE | 2016-12-03 14:03 | RADIOLOGY REPORT PS360 ---
CHEST-PORTABLE HISTORY: Follow-up thoracentesis THORACENTESIS ORDERING PHYSICIAN: Harinder Husain MD PATIENT AGE: 71 years COMPARISON: Prior exam from the same day FINDINGS: There is generalized artifact on the patient's right side. There is been marked interval decrease in size of the right pleural effusion. There may be a tiny apical pneumothorax. This is somewhat difficult to evaluate due to the overlying artifact. There is consolidation in the right lung base with small residual pleural effusion. Right upper extremity PICC line remains in place. The left lung is clear. IMPRESSION: 1. Marked interval reduction in the right pleural effusion with possible tiny apical pneumothorax. 2. Right lower lobe pneumonia/volume loss.
--- NOTE | 2016-12-03 14:29 | RADIOLOGY REPORT PS360 ---
CHEST-PORTABLE HISTORY: Pneumonia with pleural effusion POSSIBLE THORCENTITIS ORDERING PHYSICIAN: Harinder Husain MD PATIENT AGE: 71 years COMPARISON: 12/01/2016 FINDINGS: There is a large right pleural effusion with moderate opacification of the right lung. Right upper extremity PICC line is present with the tip in region of the superior vena cava. Large right effusion may be slightly larger when compared to the previous study. Left lung is clear. IMPRESSION: Large right pleural effusion with underlying parenchymal opacification
--- NOTE | 2016-12-03 14:42 | RADIOLOGY REPORT PS360 ---
US THORACENTESIS HISTORY: RT PLEURAL EFFUSION ORDERING PHYSICIAN: Harinder Husain MD PATIENT AGE: 71 years COMPARISON: None Right chest wall ultrasound: Ultrasound confirms presence of the large nonloculated right pleural effusion. The area was marked posteriorly at the maximum amount fluid. PROCEDURE: Following obtaining informed consent and after appropriate Time out, under aseptic conditions and local anesthesia with 1% buffered lidocaine using sonographic guidance a 4 Mongolian one-step catheter was inserted into the right lower chest posteriorly. There was free flow of serosanguineous fluid which was sent to the lab for analysis. Approximately 2200 cc of fluid was aspirated into vacuum bottles. Patient then moved causing kinking off of the catheter. There was a moderate amount fluid still left. An additional stick was performed at the next interspace down and an additional 2 L of fluid was withdrawn. Approximately 4200 of Serosanguineous fluid was drained. The patient tolerated the procedure well and left the radiology suite in stable condition. Post thoracentesis radiographs showed marked decrease in the amount of the right pleural effusion with questionable tiny right apical pneumothorax IMPRESSION: Successful sonographic guided right thoracentesis as described above with possible right apical pneumothorax. Follow-up chest x-ray to be performed
--- NOTE | 2016-12-03 16:19 | RADIOLOGY REPORT PS360 ---
CHEST-PORTABLE HISTORY: POST THORACENTESIS ORDERING PHYSICIAN: Harinder Husain MD PATIENT AGE: 71 years COMPARISON: Same day FINDINGS: Cardiomegaly without failure. Consolidation is present in the right lower lobe consistent with pneumonia with small effusion. PIC line remains in place. There is a small right apical pneumothorax measuring approximate 1 cm with. This may be slightly larger compared to the same day 4 hours earlier but could be related to the positioning. IMPRESSION: 1. Small right apical pneumothorax less than 10% of the total lung volume. 2. Right lower lobe consolidation with small right effusion
--- NOTE | 2016-12-03 16:59 | ACUTE CARE PROGRESS NOTE (QUA) ---
Progress Notes Subjective Date 12/03/16 Time 1656 Note discussed thoracentesis with DR. Ahn; 4200cc of fluid removed; about 10% pneumothorax; Dr. Ahn felt he would be OK tonight and to get CXR in AM and prn. Order placed Assessment/Plan Problem List 1. HCAP (healthcare-associated pneumonia) 2. CHF (congestive heart failure) 3. E. coli UTI Status: Acute 4. Staphylococcus aureus bacteremia without sepsis Status: Acute 5. Acute renal insufficiency Status: Acute 6. Cirrhosis Status: Acute 7. Ascites 8. Weakness Status: Acute 9. Elevated LFTs Status: Acute 10. Left shoulder pain Status: Acute 11. Essential hypertension Status: Chronic 12. Anemia Status: Chronic 13. Lower extremity edema Status: Chronic 14. Atrial fibrillation Status: Chronic 15. Uncontrolled atrial fibrillation 16. Debility 17. Hypotension Status: Acute 18. Pleural effusion on right 19. Bradycardia This inpt stay is expected to cross 2 MNs from start of care Yes (Anne Traore APRN) Assessment/Plan Problem List 1. HCAP (healthcare-associated pneumonia) 2. CHF (congestive heart failure) 3. E. coli UTI Status: Acute 4. Staphylococcus aureus bacteremia without sepsis Status: Acute 5. Acute renal insufficiency Status: Acute 6. Cirrhosis Status: Acute 7. Ascites 8. Weakness Status: Acute 9. Elevated LFTs Status: Acute 10. Left shoulder pain Status: Acute 11. Essential hypertension Status: Chronic 12. Anemia Status: Chronic 13. Lower extremity edema Status: Chronic 14. Atrial fibrillation Status: Chronic 15. Uncontrolled atrial fibrillation 16. Debility 17. Hypotension Status: Acute 18. Pleural effusion on right 19. Bradycardia (Harinder Husain MD) at 1658 at 0817
[2016-12-04 00:10] VITALS: BP 104/62
[2016-12-04 03:43] VITALS: BP 103/61
--- NOTE | 2016-12-04 07:06 | RADIOLOGY REPORT PS360 ---
CHEST-PORTABLE HISTORY: Pneumonia, follow-up pneumothorax, pleural effusion 10% pneumo after thoracentesis ORDERING PHYSICIAN: Harinder Husain MD PATIENT AGE: 71 years COMPARISON: 12/03/2016 FINDINGS: Cardiomegaly without failure. Right upper extremity PICC line remains in place.. Right lower lobe pneumonia once again noted and may be slightly worse. Small right apical pneumothorax once again suspected but appears smaller compared to the previous exam only 5 mm in width at the lung apex. The left lung is clear.. No acute bony abnormalities. IMPRESSION: 1. Worsening right lower lobe pneumonia with small right effusion. 2. Decrease in size of right apical pneumothorax
[2016-12-04 08:00] VITALS: BP 107/59
--- NOTE | 2016-12-04 08:10 | ACUTE CARE PROGRESS NOTE (QUA) ---
Progress Notes Subjective Date 12/04/16 Time 0805 Note Pt states he feels "woozy" today. He denies any pain. He had 4 L drained off of his lung yesterday. He states his breathing is a little better. He says he didn't sleep. Objective Findings Last VS-Temp:98.2 B/P:103/61 Pulse:92 Resp:20 SaO2:97 OXYGEN Last weight lbs:221 oz:2 K.301 Method:Bed Scales Laboratory Tests 12/03/16 1245: Fluid Source RIGHT LUNG, Fluid WBC 1433, Fluid RBC 41, Fluid Diff Comment COMMENT, Fluid Mononuclear Cell 49, Fl Polymorphonucl Cell 51 Microbiology 12/03 124 THOR FLD: Gram Stain - COMP 12/03 124 THOR FLD: Body Fluid Culture - RECD 12/03 115 THOR FLD: Organism ID (Sequencing 2)(SILVER) - CAN Cancelled: @WRONG TEST ORDERED Exam General appearance: awake, drowsy but can answer questions Cardiovascular: irregularly irregular Respiratory: diminished breath sounds on the right with faint rales, better air movement on the left ABD: still distended but not as firm, no ttp, BS present Extremities: trace pretibial edema bilaterally Reviewed: CXR - worsening RLL pneumonia with effusion, improved pneumothorax on the right Assessment/Plan Problem List 1. HCAP (healthcare-associated pneumonia) 2. CHF (congestive heart failure) 3. E. coli UTI Status: Acute 4. Staphylococcus aureus bacteremia without sepsis Status: Acute 5. Acute renal insufficiency Status: Acute 6. Cirrhosis Status: Acute 7. Ascites 8. Weakness Status: Acute 9. Elevated LFTs Status: Acute 10. Left shoulder pain Status: Acute 11. Essential hypertension Status: Chronic 12. Anemia Status: Chronic 13. Lower extremity edema Status: Chronic 14. Atrial fibrillation Status: Chronic 15. Uncontrolled atrial fibrillation 16. Debility 17. Hypotension Status: Acute 18. Pleural effusion on right 19. Bradycardia Plan: Will discuss further care with Dr. Husain. This inpt stay is expected to cross 2 MNs from start of care Yes (Leilani Clark) Subjective Date 12/04/16 Assessment/Plan Problem List 1. HCAP (healthcare-associated pneumonia) 2. CHF (congestive heart failure) 3. E. coli UTI Status: Acute 4. Staphylococcus aureus bacteremia without sepsis Status: Acute 5. Acute renal insufficiency Status: Acute 6. Cirrhosis Status: Acute 7. Ascites 8. Weakness Status: Acute 9. Elevated LFTs Status: Acute 10. Left shoulder pain Status: Acute 11. Essential hypertension Status: Chronic 12. Anemia Status: Chronic 13. Lower extremity edema Status: Chronic 14. Atrial fibrillation Status: Chronic 15. Uncontrolled atrial fibrillation 16. Debility 17. Hypotension Status: Acute 18. Pleural effusion on right 19. Bradycardia 20. S/P thoracentesis Plan: Pt seen and examined. Procedures completed. Pneumothorax is stable and improved. He can be discharged to [place] today and will complete 2 more days of antibiotics for his pneumonia. Will initiate PT, OT and arrange outpt f /u with Dr. Lloyd in 2 weeks (Harinder Husain MD) at 0823 at 1800
[2016-12-04] MEDS ORDERED: LASIX 40MG. TAB40 MG PO (08:43)
[2016-12-04] MEDS ORDERED: NYSTATIN TO30 GM/BOT TP (08:44)
[2016-12-04] MEDS ORDERED: FAMOTIDINE20 MG PO (08:45)
[2016-12-04] MEDS ORDERED: ALDACTONE100 MG PO (08:47)
[2016-12-04] MEDS ORDERED: [UNRECOGNIZED DRUG - OTHER] OR (08:48)
[2016-12-04] MEDS ORDERED: KLOR-CON M2020 MEQ PO (08:49)
[2016-12-04] MEDS ORDERED: AMERINET CHOICE1 PD4 IV (08:51)
--- NOTE | 2016-12-04 08:57 | DISCHARGE SUMMARY STANDARD ---
Discharge Summary (FCA2) Date of admission: 11/21/16 Date of discharge: 12/04/16 Problem List: 1. HCAP (healthcare-associated pneumonia) 2. CHF (congestive heart failure) 3. E. coli UTI 4. Staphylococcus aureus bacteremia without sepsis 5. Acute renal insufficiency 6. Cirrhosis 7. Ascites 8. Weakness 9. Elevated LFTs 10. Left shoulder pain 11. Essential hypertension 12. Anemia 13. Lower extremity edema 14. Atrial fibrillation 15. Uncontrolled atrial fibrillation 16. Debility 17. Hypotension 18. Pleural effusion on right 19. Bradycardia 20. S/P thoracentesis History of present illness: Mr. Wu is a 71yo male who was a patient at [facility] but recently left stating that being home made him feel better. His family called the office to report he was generally not feeling well. He was SOA and lethargic/confused and had some left arm pain. They were instructed to give him an extra dose of lasix and bring him to the ER if he was not any better. He presented to the ER by ambulance. He had been ambulatory with assistance until 2 days prior when he became weak and could no longer walk. He was still c/o pain with movement in his LEFT shoulder. He also c/o some generalized abdominal pain. His breathing had improved slightly but according to the ER note, he began having labored breathing while in the ER and this had continued. The home health nurse had thought he may have a UTI and did a U/A but results were not back. He had a U/A in the ER and it appeared he had a UTI. He was admitted for further evaluation and treatment. His POA also stated that he had some facial drooping on the right and she was worried he was having a stroke, however that had improved by admission. Exam on admission: General appearance: lethargic, Able to answer questions but very drowsy, can follow some commands Eyes: EOM's w/normal ROM, PERRLA ENT: nose normal, pharynx normal, dry mucous membranes Neck: non-tender, full range of motion, supple Cardiovascular: irregularly irregular Respiratory: clear to auscultation, breathing is labored ABD: distended, BS present, diffusely ttp Extremities: 2+ pretibial edema bilaterally Musculoskeletal: equal muscle strength, motor intact, sensation intact, pain with palpation of the AC joint on the left and pain with flexion and extension of the shoulder Skin: jaundice, pale Neuro: lethargic, can answer questions and follow some commands, CN 2-12 intact, strength equal bilaterally Hospital Course: The patient had a left shoulder X-ray that showed only mild subacromial stenosis. He had a CXR that showed poor inspiration with vascular crowding in the lung bases with suspected atelectasis or infiltrate in the lung bases more prominent on the right with small right effusion. He had a CT of the abdomen and pelvis showing cirrhosis with a moderate amount of ascites and mild splenomegaly. He was started on abx and IVF's. A RUQ U/S and an amylase and lipase were ordered d/t new onset jaundice and cirrhosis. Some of his home medications were restarted but his cholesterol medication was held d/t elevated LFT's. Blood and urine cultures were ordered. His RUQ U/S showed cirrhosis and ascites. His blood cx was positive for Staph Aureus and his urine cx was positive for E. Coli. He was started on rocephin. Dr. Lloyd was consulted d/ t the liver disease. They recommended a paracentesis with albumin replacement and the addition of spironolactone. He had 8 Liters removed with the paracentesis, however the site continued to leak peritoneal fluid. He had to have a repeat paracentesis and they removed 6 liters of fluid and he had albumin replacement again. His HR began increasing as did his respirations. He had to be started on a cardizem drip d/t uncontrolled afib. This controlled his afib and he was switched to PO cardizem. He had a echo showing moderate biatrial enlargement, normal left ventricular size, mild concentric left ventricular hypertrophy, and a visually estimated ejection fraction of approximately 40%. He had a moderately enlarged right ventricle with mild reduced contractility, a thickened and calcified aortic valve without Doppler evidence of significant aortic stenosis and mild aortic insufficiency. He also had moderate pulmonary hypertension and a trivial pericardial effusion noted. He had a repeat CXR showing an increase in his right pleural effusion. He had to have a thoracentesis and they were able to remove 4200mL. He had a small pneumothorax but on a repeat CXR, this was improving and only a small effusion was left. His pneumonia was still present. He was stable to be discharged back to [facility] on IV abx. He will need to be monitored closely. He will need a CBC and CMP in 5 days and will need both PT and OT. Discharge medications: Stop taking the following medications: Lovastatin (Lovastatin) 40 MG TABLET ORAL AT BEDTIME NIGHTLY Qty = 30 Metolazone (Metolazone 5MG Tablet) 5 MG TABLET ORAL DAILY Ezetimibe (Ezetimibe) 10 MG TABLET ORAL AT BEDTIME NIGHTLY Amlodipine Besylate (Amlodipine Besylate) 2.5 MG TABLET ORAL DAILY OXYCODONE HCL (Oxycodone Hydrochloride) 5 MG TABLET ORAL EVERY 4 HOURS NEEDED as needed for PAIN Continue taking these medications: Clopidogrel Bisulfate (Plavix) 75 MG TABLET 75 MILLIGRAM ORAL DAILY Qty = 30 CHOLECALCIFEROL (VITAMIN D3) (Vitamin D) 2,000 UNIT TABLET 1 TABLET ORAL DAILY Ferrous Sulfate (Ferrous Sulfate 325MG) 325 MG TABLET 325 MILLIGRAM ORAL TWICE A DAY Qty = 30 ASPIRIN (Aspirin) 81 MG TAB.CHEW 81 MILLIGRAM ORAL DAILY Qty = 30 Risperidone (Risperdal 0.5 Mg Tablet) 0.5 MG TABLET 0.5 MILLIGRAM ORAL TWICE A DAY Lorazepam (Ativan) 0.5 MG TABLET 0.5 MILLIGRAM ORAL FOUR TIMES A DAY as needed for ANXIETY Acetaminophen (Acetaminophen Extra Strength) 500 MG TABLET 1,000 MILLIGRAM ORAL EVERY 6 HOURS NEEDED as needed for PAIN Cyanocobalamin (Vitamin B-12) (B-12) 500 MCG TABLET 500 MICROGRAM ORAL DAILY Famotidine (Pepcid 20MG) 20 MG TABLET 20 MILLIGRAM ORAL DAILY Metoprolol Tartrate (Metoprolol Tartrate) 25 MG TABLET 25 MILLIGRAM ORAL TWICE A DAY Start taking the following new medications: NYSTATIN (Nystatin Topical Powder 30GM) 30 GM POWDER 0 GRAM TOPICAL FOUR TIMES A DAY Qty = 1 Refills = 2 Famotidine (Famotidine) 20 MG TABLET 20 MILLIGRAM ORAL DAILY Qty = 30 Refills = 2 Spironolactone (Aldactone 100MG) 100 MG TABLET 100 MILLIGRAM ORAL DAILY Qty = 30 Refills = 2 Diltiazem Hcl (Cardizem Generic 60MG Tab) 60 MG TABLET 60 MILLIGRAM BY MOUTH THREE TIMES A DAY Qty = 90 Refills = 2 PIPERACILLIN SODIUM/TAZOBACTAM (Zosyn 3.375 Gram Vial) 3.375 GRAM VIAL 1 POWDER SOLUTION INTRAVEN EVERY 6 HRS-(07/21/07/21) Days = 2 No Refills The following medications have been changed: Old: Furosemide (Lasix 40MG) 40 MG TABLET 40 MILLIGRAM ORAL TWICE A DAY New: Furosemide (Lasix 40MG) 40 MG TABLET 40 MILLIGRAM ORAL DAILY Qty = 30 Old: Potassium Chloride (Klor-Con M20) 20 MEQ TAB.ER.PRT 40 Milliequivalent ORAL THREE TIMES A DAY New: Potassium Chloride (Klor-Con M20) 20 MEQ TAB.ER.PRT 40 Milliequivalent ORAL TWICE A DAY Qty = 60 Disposition: F/U with: Harinder Husain MD Follow up: at [facility] Comments, Specifics r/t O2, Equipment, Antibiotics, etc: arrange ambulance transfer Care Management Consult for: DISCHARGE PLANNING Activity: Use assistive device Diet: No Added Salt Discharge to: [facility] Specify Nsg Home: [facility] at 1036
[2016-12-04 09:00] VITALS: BP 107/59
[2016-12-04 10:39] LABS: Protein, Body Fluid 1.8 g/dL (.)
[2016-12-04 12:00] VITALS: BP 101/67
== END 2016-12-04 14:00 | DRG 441 ==
LOC: ER 10:54 → 2ND 13:02
PROVIDERS: Emergency Medicine; Family Medicine; Internal Medicine Gastroenterology
PROC: 0W993ZZ Drainage of Right Pleural Cavity, Percutaneous Approach (ICD-10-PCS; principal; 2016-11-27)
PROC: 0W993ZZ Drainage of Right Pleural Cavity, Percutaneous Approach (ICD-10-PCS; 2016-12-03)
PROC: 0W9G3ZZ Drainage of Peritoneal Cavity, Percutaneous Approach (ICD-10-PCS; 2016-12-03)
DX: K72.00 Acute and subacute hepatic failure without coma (principal); J18.9 Pneumonia, unspecified organism; J90 Pleural effusion, not elsewhere classified; R78.81 Bacteremia; R18.8 Other ascites; B95.61 Methicillin susceptible Staphylococcus aureus infection as the cause of diseases classified elsewhere; I48.91 Unspecified atrial fibrillation; K74.60 Unspecified cirrhosis of liver; N39.0 Urinary tract infection, site not specified; J95.811 Postprocedural pneumothorax; Z95.5 Presence of coronary angioplasty implant and graft; I10 Essential (primary) hypertension; B96.20 Unspecified Escherichia coli [E. coli] as the cause of diseases classified elsewhere; R45.1 Restlessness and agitation; K72.10 Chronic hepatic failure without coma
CPT/HCPCS: C1751; J2405; J2543; J3370; P9047

== ENCOUNTER 2016-12-13 22:56 | Inpatient (IN) | payer MEDICARE, OTHER ==
[~2016-12-13] VITALS: Ht 195.6 cm; Wt 92.6 kg
[~2016-12-13 22:56] MED LIST changes: +ACETAMINOPHEN500 M5 PO; +ALDACTONE100 MG PO; +AMERINET CHOICE1 PD4 IV; +AMLO2.5T PO; +ATIVAN GENERIC0.5 MG PO; +B-12500 MC1 PO; +EZETIMIBE10 M1 PO; +FAMOTIDINE20 MG PO; +KLOR-CON M2020 MEQ PO; +LASIX 40MG. TAB40 MG PO; +METOLAZONE 5MG T5 MG PO; +METOPROLOL 25 M25 MG PO; +METOPROLOL TART25 MG PO; +NYSTATIN TO30 GM/BOT TP; +OXYCODONE HYDROC5 MG PO; +Pepcid20 MG PO; +RISPERDAL 0.50.5 MG PO; +[UNRECOGNIZED DRUG - OTHER] OR
[2016-12-13 22:57] VITALS: BP 180/109
--- OUTSIDE RECORDS SUMMARY | 2016-12-13 23:24 | External Medical Summary Rpt | CCD ---
Author Author , ELIGIO DEL VALLE Address Unknown Phone [email or web address] Care Team Providers Care Radio Assembler Name Role Phone Anne Traore APRN, Unavailable Unavailable Anne Husain MD, Unavailable Unavailable Harinder Husain MD Purpose Continuity of Care Document - 05-03-2012 through 2016 Problems Code Diagnosis DOS Provider Status [id number] Headache [facility] [id number] Cervicogeni [facility] 401.9 Essential [facility] 458.8 Drug-induce [facility] [id number] Anxiety [facility] 729.82 Leg cramp [facility] 780.2 Syncope [facility] Allergies, Adverse Reactions, Alerts Type Drug Allergy [...] Order Detail nces retati t Range on Cell count + diff body fluid (12-03-2016 12:45) BODY COMMENT complet FLUID 017 ed DIFF 12:45 COMMEN Comment: VOLUME: 3850 mL Comment: CLARITY: BLOODY Comment: VISCOSITY: NORMAL Body = 49 % complet fluid 017 ed monocyt 12:45 e count Manual = 51 % complet body 017 ed fluid 12:45 segment ed neutrop hils/ Body = 41 complet fluid 017 /mm3 ed erythro 12:45 cytes count Specime RIGHT complet n 017 LUNG ed source 12:45 RIGHT identif LUNG L ication of body f Body = 1433 complet fluid 017 MM ed leukocy 12:45 te (WBC) count Protein, body fluid, total (12-03-2016 12:45) Protein = 1.8 . complet , body 017 g/dL ed fluid, 12:45 total Comment: Comment: : Peritoneal : Pleural : Synovial : Comment: : : :_ : Comment: : : Transudate : Exudate : : Comment: : : : :_ : Comment: : Not Estab. : <3 g/dL : >3 g/dL : <2.5 g/dL : Comment: : : : :_ : Comment: Comment: The method performance specifications have not been Comment: established for this test in body fluid. The test result Comment: should be integrated into the clinical context for Comment: interpretation. Comment: The method performance specifications have not been Comment: established for this test in body fluid. The test result Comment: should be integrated into the clinical context for Comment: interpretation. Comment: Performed at: [facility] Comment: [id number], [place] [phone] Comment: Event Technician: Salvador Martínez PhD, Phone: [phone] Body fluid glucose assay (12-03-2016 12:45) Body = 98 . complet fluid 017 mg/dL ed glucose 12:45 assay Comment: Comment: : Peritoneal : Pleural : Synovial : Comment: : : :_ : Comment: : : Transudate : Exudate : : Comment: : : : :_ : Comment: : Not Estab. : Equal to simultaneously drawn plasma : Comment: : : : Comment: Comment: The method performance specifications have not been Comment: established for this test in body fluid. The test result Comment: should be integrated into clinical context for Comment: interpretation. Comment: The reference intervals and other method performance Comment: specifications have not been established for this test. The Comment: test result should be integrated into the clinical context Comment: for interpretation. Cell count & Differential panel in Body fluid (12-03-2016 12:45) BODY COMMENT complet FLUID 017 ed DIFF 12:45 COMMEN Specime RIGHT complet n 017 LUNG ed source 12:45 [Identi fier] of Body fluid CBC w auto diff (12-03-2016 06:30) Automat = 0.0 0-0.2 complet ed 017 K/MM3 ed blood 06:30 basophi l count (count/ vo Baso % = 0.3 % 0.1-2.0 complet 017 ed 06:30 Automat = 0.1 0.0-0.4 complet ed 017 K/mm3 ed blood 06:30 eosinop hil count Automat = 0.4 % 0.1-12. complet ed 017 0 ed blood 06:30 eosinop hils/10 0 leukocy t Blood = 9.6 1.3-8.0 complet granulo 017 K/mm3 ed cytes 06:30 automat ed count (numb Granulo = 74.1 37.0-80 complet cyte 017 % .0 ed percent 06:30 age Blood = 31.4 42.0-52 complet hematoc 017 % .0 ed rit 06:30 (volume fractio n) Blood = 9.1 14.1-18 complet hemoglo 017 g/dL .0 ed bin 06:30 measure ment (mass/v olum Absolut = 1.1 0.7-4.5 complet e 017 K/mm3 ed lymphoc 06:30 yte count Lymphoc = 8.2 % 10-50 complet yte 017 ed count, 06:30 blood, automat ed Mean = 25.6 27-31.2 complet corpusc 017 pg ed ular 06:30 hemoglo bin (MCH) determ Automat = 29.1 31.8-35 complet ed 017 g/dl .4 ed erythro 06:30 cyte mean corpusc ular h Automat = 88.0 82.2-97 complet ed 017 fl .8 ed erythro 06:30 cyte mean corpusc ular v Absolut = 2.2 0.1-1.0 complet e 017 K/mm3 ed monocyt 06:30 e count Dixie % = 16.9 1.7-9.3 complet 017 % ed 06:30 Automat = 7.6 7.4-10. complet ed 017 fl 4 ed blood 06:30 platele t mean volume austyn Blood = 323 142-424 complet platele 017 K/mm3 ed t count 06:30 Red = 3.56 4.6-6.2 complet blood 017 M/mm3 ed cell 06:30 count Automat = 18.1 11.5-17 complet ed 017 % .5 ed erythro 06:30 cyte distrib ution width Blood = 12.9 4.8-10. complet leukocy 017 K/MM3 8 ed kelley 06:30 count (number /volume ) Vancomycin trough (12-02-2016 13:30) Comment: COLLECTED BY NURSE FROM PICC Vancomy = 14.0 5.0-10. complet meghan 017 mcg/mL 0 ed trough 13:30 CBC w auto diff (12-01-2016 04:20) Automat = 87.9 82.2-97 complet ed 017 fl .8 ed erythro 04:20 cyte mean corpusc ular v Absolut = 2.4 0.1-1.0 complet e 017 K/mm3 ed monocyt 04:20 e count Dixie % = 15.9 1.7-9.3 complet 017 % ed 04:20 Automat 2 = 7.6 7.4-10. complet ed 017 fl 4 ed blood 04:20 platele t mean volume austyn Blood = 371 142-424 complet platele 017 K/mm3 ed t count 04:20 Red = 3.79 4.6-6.2 complet blood 017 M/mm3 ed cell 04:20 count Automat = 17.4 11.5-17 complet ed 017 % .5 ed erythro 04:20 cyte distrib ution width Blood 12-01- = 15.0 4.8-10. complet leukocy 017 K/MM3 8 ed kelley 04:20 count (number /volume ) Mean = 25.3 27-31.2 complet corpusc 017 pg ed ular 04:20 hemoglo bin (MCH) determ Automat 12-01-2 = 0.0 0-0.2 complet ed 017 K/MM3 ed blood 04:20 basophi l count (count/ vo Baso % = 0.2 % 0.1-2.0 complet 017 ed 04:20 Automat 12-01-2 = 0.1 0.0-0.4 complet ed 017 K/mm3 ed blood 04:20 eosinop hil count Automat 2 = 0.4 % 0.1-12. complet ed 017 0 ed blood 04:20 eosinop hils/10 0 leukocy t Blood = 10.9 1.3-8.0 complet granulo 017 K/mm3 ed cytes 04:20 automat ed count (numb Granulo = 72.3 37.0-80 complet cyte 017 % .0 ed percent 04:20 age Blood = 33.3 42.0-52 complet hematoc 017 % .0 ed rit 04:20 (volume fractio n) Blood = 9.6 14.1-18 complet hemoglo 017 g/dL .0 ed bin 04:20 measure ment (mass/v olum Absolut = 1.7 0.7-4.5 complet e 017 K/mm3 ed lymphoc 04:20 yte count Lymphoc = 11.1 10-50 complet yte 017 % ed count, 04:20 blood, automat ed Automat = 28.8 31.8-35 complet ed 017 g/dl .4 ed erythro 04:20 cyte mean corpusc ular h Differential panel, method unspecified - (12-01-2016 04:20) Blood 1+ 1+ L complet anisocy 017 ed tosis 04:20 detecti on Automat = 4 % 0-8 complet ed 017 ed blood 04:20 band neutrop hil percent a Hypochr 2+ 2+ L complet omatic 017 ed red 04:20 blood cell detecti on LYMPH 8 % 10-50 complet 017 ed 04:20 Monocyt = 3 % 2-9 complet e % 017 ed 04:20 Platele NORMAL complet t 017 NORMAL ed estimat 04:20 L e Blood SL. SL. complet poikilo 017 L ed cytosis 04:20 detecti on by light Blood 1+ 1+ L complet polychr 017 ed omasia 04:20 detecti on by light m Neutrop = 85 % 42-76 complet hil 017 ed count 04:20 Blood = 100 complet total 017 #CELLS ed cell 04:20 count Comprehensive metabolic panel (12-01-2016 04:20) Serum 12-01-2 = 0.3 1.1-1.8 complet or 017 ed plasma 04:20 albumin /globul in mass ra Serum = 1.4 3.4-5.0 complet or 017 gm/dL ed plasma 04:20 albumin measure ment (mas Serum = 348 46-116 complet or 017 U/L ed plasma 04:20 alkalin e phospha tase austyn Serum = 0.8 0.2-1.0 complet or 017 mg/dL ed plasma 04:20 total bilirub in measure m Serum = 37 7-18 complet or 017 mg/dL ed plasma 04:20 urea nitroge n measure men Serum = 8.4 8.5-10. complet or 017 mg/dL 1 ed plasma 04:20 calcium measure ment (mas Serum = 107 98-107 complet or 017 mmoL/L ed plasma 04:20 chlorid e measure ment (mo Carbon = 26 21.0-32 complet dioxide 017 mmoL/L .0 ed 04:20 measure ment Serum = 1.2 0.70-1. complet or 017 mg/dL 30 ed plasma 04:20 creatin ine measure ment ( Estimat = 90 50-200 complet ion of 017 ML/MIN ed creatin 04:20 ine renal clearan ce Estimat = 59 >60 complet ed 017 ML/MIN ed glomeru 04:20 lar filtrat ion rate (GF Comment: REFERENCE RANGE: >60 ML/MIN/1.73 SQUARE METERS Comment: If this patient is -Malian, then multiply the Comment: result by 1.210. Serum 12-01-2 = 4.7 1.3-3.2 complet globuli 017 gm/dL ed n 04:20 measure ment (mass/v olume) Serum = 101 74-106 complet or 017 mg/dL ed plasma 04:20 glucose measure ment (mas Serum = 4.8 3.5-5.1 complet potassi 017 mmoL/L ed um 04:20 measure ment Serum 12-01-2 = 140 136-145 complet sodium 017 mmoL/L ed measure 04:20 ment Serum = 25 15-37 complet or 017 U/L ed plasma 04:20 asparta te aminotr ansfera ALT = 26 12-78 complet (SGPT) 017 U/L ed ser/wolfgang 04:20 s Protein = 6.1 6.4-8.2 complet total 017 gm/dL ed ser/wolfgang 04:20 s Differential panel, method unspecified - (12-01-2016 04:20) Anisocy 1+ complet tosis 017 ed [Presen 04:20 ce] in Blood Hypochr 2+ complet omia 017 ed [Presen 04:20 ce] in Blood LYMPH 8 % 10% - Low complet 017 50% ed 04:20 Platele NORMAL complet ts 017 ed [Presen 04:20 ce] in Blood by Light microsc opy Poikilo SL. complet cytosis 017 ed 04:20 [Presen ce] in Blood by Light microsc opy Polychr 1+ complet omasia 017 ed [Presen 04:20 ce] in Blood by Light microsc opy CBC w auto diff (11-30-2016 06:30) Baso % = 0.2 % 0.1-2.0 complet 017 ed 06:30 Automat = 0.0 0-0.2 complet ed 017 K/MM3 ed blood 06:30 basophi l count (count/ vo Automat = 0.1 0.0-0.4 complet ed 017 K/mm3 ed blood 06:30 eosinop hil count Automat = 0.6 % 0.1-12. complet ed 017 0 ed blood 06:30 eosinop hils/10 0 leukocy t Blood = 9.7 1.3-8.0 complet granulo 017 K/mm3 ed cytes 06:30 automat ed count (numb Granulo = 76.2 37.0-80 complet cyte 017 % .0 ed percent 06:30 age Blood = 32.5 42.0-52 complet hematoc 017 % .0 ed rit 06:30 (volume fractio n) Blood = 9.3 14.1-18 complet hemoglo 017 g/dL .0 ed bin 06:30 measure ment (mass/v olum Absolut = 0.9 0.7-4.5 complet e 017 K/mm3 ed lymphoc 06:30 yte count Lymphoc = 7.2 % 10-50 complet yte 017 ed count, 06:30 blood, automat ed Mean = 25.3 27-31.2 complet corpusc 017 pg ed ular 06:30 hemoglo bin (MCH) determ Automat = 28.6 31.8-35 complet ed 017 g/dl .4 ed erythro 06:30 cyte mean corpusc ular h Automat = 88.4 82.2-97 complet ed 017 fl .8 ed erythro 06:30 cyte mean corpusc ular v Absolut = 2.0 0.1-1.0 complet e 017 K/mm3 ed monocyt 06:30 e count Dixie % = 15.8 1.7-9.3 complet 017 % ed 06:30 Automat = 7.5 7.4-10. complet ed 017 fl 4 ed blood 06:30 platele t mean volume austyn Blood = 383 142-424 complet platele 017 K/mm3 ed t count 06:30 Red = 3.67 4.6-6.2 complet blood 017 M/mm3 ed cell 06:30 count Automat = 17.4 11.5-17 complet ed 017 % .5 ed erythro 06:30 cyte distrib ution width Blood = 12.8 4.8-10. complet leukocy 017 K/MM3 8 ed kelley 06:30 count (number /volume ) Basic metabolic panel (11-30-2016 06:30) Serum = 37 7-18 complet or 017 mg/dL ed plasma 06:30 urea nitroge n measure men Serum = 8.6 8.5-10. complet or 017 mg/dL 1 ed plasma 06:30 calcium measure ment (mas Serum 2 = 108 98-107 complet or 017 mmoL/L ed plasma 06:30 chlorid e measure ment (mo Carbon 2 = 27 21.0-32 complet dioxide 017 mmoL/L .0 ed 06:30 measure ment Serum 11-30-2 = 1.3 0.70-1. complet or 017 mg/dL 30 ed plasma 06:30 creatin ine measure ment ( Estimat 2 = 83 50-200 complet ion of 017 ML/MIN ed creatin 06:30 ine renal clearan ce Estimat = 54 >60 complet ed 017 ML/MIN ed glomeru 06:30 lar filtrat ion rate (GF Comment: REFERENCE RANGE: >60 ML/MIN/1.73 SQUARE METERS Comment: If this patient is -Malian, then multiply the Comment: result by 1.210. Serum = 115 74-106 complet or 017 mg/dL ed plasma 06:30 glucose measure ment (mas Serum = 4.6 3.5-5.1 complet potassi 017 mmoL/L ed um 06:30 measure ment Serum 2 = 140 136-145 complet sodium 017 mmoL/L ed measure 06:30 ment Vancomycin trough (11-30-2016 06:30) Vancomy --2 = 19.3 5.0-10. complet meghan 017 mcg/mL 0 ed trough 06:30 Comment: CALLED TO Jeff MILLARD [facility] 11/30/16 0725 Vancomycin trough (11-29-2016 09:15) Vancomy --2 = 25.1 5.0-10. complet meghan 017 mcg/mL 0 ed trough 09:15 Comment: Comment: RESULTS CALLED TO PHARMACIST: CHE 11/29/16 0932 Comment: Russell Mondragon CREATININE (11-29-2016 09:15) Serum 11-29-2 = 1.4 0.70-1. complet or 017 mg/dL 30 ed plasma 09:15 creatin ine measure ment ( Estimat = 77 50-200 complet ion of 017 ML/MIN ed creatin 09:15 ine renal clearan ce Estimat = 50 >60 complet ed 017 ML/MIN ed glomeru 09:15 lar filtrat ion rate (GF Comment: REFERENCE RANGE: >60 ML/MIN/1.73 SQUARE METERS Comment: If this patient is -Malian, then multiply the Comment: result by 1.210. Cardiac enzymes (11-29-2016 06:20) Serum = 3.1 0-4.0 complet or 017 U/L ed plasma 06:20 creatin e kinase MB (CK-M Serum = 0.5 0.0-3.6 complet or 017 ng/mL ed plasma 06:20 creatin e kinase MB measu Serum = 16 39-308 complet or 017 U/L ed plasma 06:20 creatin e kinase measure m Serum < 0.02 0.00-0. complet or 017 ng/mL 06 ed plasma 06:20 troponi n i.cardi ac measu Sputum culture (11-29-2016 02:35) Comment: Collected by nurse? Y Comment: Hold specimen in OE? N Sputum LARGE complet culture 017 AMOUNT ed 02:35 OF YEAST ISOLATE D. PLEASE CONTACT LAB IF Sputum FURTHER complet culture 017 ID ed 02:35 REQUIRE D. LAB WILL HOLD YEAST FOR 5 DAYS. Sputum [id number] complet culture 017 5 Yeast ed 02:35 SCT Y YEAST L Bacteria identified in Sputum by Culture (11-29-2016 02:35) Bacteri LARGE complet a 017 AMOUNT ed identif 02:35 OF ied in YEAST Sputum ISOLATE by D. Culture PLEASE CONTACT LAB IF Bacteri FURTHER complet a 017 ID ed identif 02:35 REQUIRE ied in D. LAB Sputum WILL by HOLD Culture YEAST FOR 5 DAYS. Bacteri Yeast complet a 017 ed identif 02:35 ied in Sputum by Culture Cell count + diff body fluid (11-27-2016 12:00) Comment: COMMENTS TO TIME RECORDER: ascites BODY COMMENT complet FLUID 017 ed DIFF 12:00 COMMEN Comment: TOTAL VOL: 8060mL Comment: CLARITY: CLEAR Comment: VISCOSITY: NORMAL Body = 54 % complet fluid 017 ed monocyt 12:00 e count Manual = 46 % complet body 017 ed fluid 12:00 segment ed neutrop hils/ Body < 10 complet fluid 017 /mm3 ed erythro 12:00 cytes count Specime ABDOMEN complet n 017 ed source 12:00 ABDOMEN identif L ication of body f Body = 145 complet fluid 017 MM ed leukocy 12:00 te (WBC) count Body fluid albumin measurement (mass/vol (11-27-2016 12:00) Comment: COMMENTS TO TIME RECORDER: ascites Body = 0.5 . complet fluid 017 g/dL ed albumin 12:00 measure ment (mass/v ol Comment: Comment: : Peritoneal : Pleural : Synovial : Comment: : : :_ : Comment: : : Transudate : Exudate : : Comment: : : : :_ : Comment: : Not Estab. : Not Estab. : Not Estab.: Not Estab. : Comment: : : : :_ : Comment: Comment: The method performance specifications have not been Comment: established for this test in body fluid. The test result Comment: should be integrated into the clinical context for Comment: interpretation. Comment: The reference intervals and other method performance Comment: specifications have not been established for this test. The Comment: test result should be integrated into the clinical context Comment: for interpretation. Protein, body fluid, total (11-27-2016 12:00) Comment: COMMENTS TO TIME RECORDER: ascites Protein = 1.7 . complet , body 017 g/dL ed fluid, 12:00 total Comment: Comment: : Peritoneal : Pleural : Synovial : Comment: : : :_ : Comment: : : Transudate : Exudate : : Comment: : : : :_ : Comment: : Not Estab. : <3 g/dL : >3 g/dL : <2.5 g/dL : Comment: : : : :_ : Comment: Comment: The method performance specifications have not been Comment: established for this test in body fluid. The test result Comment: should be integrated into the clinical context for Comment: interpretation. Comment: The method performance specifications have not been Comment: established for this test in body fluid. The test result Comment: should be integrated into the clinical context for Comment: interpretation. Comment: Performed at: [facility] Comment: [id number], [place] [id number] Comment: Event Technician: Salvador Martínez PhD, Phone: [phone] Body fluid glucose assay (11-27-2016 12:00) Comment: COMMENTS TO TIME RECORDER: ascites Body = 123 . complet fluid 017 mg/dL ed glucose 12:00 assay Comment: Comment: : Peritoneal : Pleural : Synovial : Comment: : : :_ : Comment: : : Transudate : Exudate : : Comment: : : : :_ : Comment: : Not Estab. : Equal to simultaneously drawn plasma : Comment: : : : Comment: Comment: The method performance specifications have not been Comment: established for this test in body fluid. The test result Comment: should be integrated into clinical context for Comment: interpretation. Comment: The reference intervals and other method performance Comment: specifications have not been established for this test. The Comment: test result should be integrated into the clinical context Comment: for interpretation. Vancomycin trough (11-27-2016 07:28) Vancomy = 24.6 5.0-10. complet meghan 017 mcg/mL 0 ed trough 07:28 Comment: RESULTS CALLED TO PHARMACIST: BRAYDEN Escamilla Comment: 11/27/16 0809 Edgardo Polanco Comprehensive metabolic panel (11-26-2016 06:04) Serum 10-2 = 39 15-37 complet or 017 U/L ed plasma 06:04 asparta te aminotr ansfera Serum 11-26-2 = 138 136-145 complet sodium 017 mmoL/L ed measure 06:04 ment Serum 2 = 4.7 3.5-5.1 complet potassi 017 mmoL/L ed um 06:04 measure ment Serum 11-26-2 = 103 74-106 complet or 017 mg/dL ed plasma 06:04 glucose measure ment (mas Serum 10-18-2 = 5.6 1.3-3.2 complet globuli 017 gm/dL ed n 06:04 measure ment (mass/v olume) Estimat = 59 >60 complet ed 017 ML/MIN ed glomeru 06:04 lar filtrat ion rate (GF Comment: REFERENCE RANGE: >60 ML/MIN/1.73 SQUARE METERS Comment: If this patient is -[place], then multiply the Comment: result by 1.210. Estimat = 95 50-200 complet ion of 017 ML/MIN ed creatin 06:04 ine renal clearan ce Serum = 1.2 0.70-1. complet or 017 mg/dL 30 ed plasma 06:04 creatin ine measure ment ( Carbon = 24 21.0-32 complet dioxide 017 mmoL/L .0 ed 06:04 measure ment Serum = 108 98-107 complet or 017 mmoL/L ed plasma 06:04 chlorid e measure ment (mo Serum = 8.1 8.5-10. complet or 017 mg/dL 1 ed plasma 06:04 calcium measure ment (mas Serum = 42 7-18 complet or 017 mg/dL ed plasma 06:04 urea nitroge n measure men Serum = 1.1 0.2-1.0 complet or 017 mg/dL ed plasma 06:04 total bilirub in measure m Serum = 467 46-116 complet or 017 U/L ed plasma 06:04 alkalin e phospha tase austyn Serum = 1.3 3.4-5.0 complet or 017 gm/dL ed plasma 06:04 albumin measure ment (mas Serum = 0.2 1.1-1.8 complet or 017 ed plasma 06:04 albumin /globul in mass ra ALT = 36 12-78 complet (SGPT) 017 U/L ed ser/wolfgang 06:04 s Protein = 6.9 6.4-8.2 complet total 017 gm/dL ed ser/wolfgang 06:04 s CBC w auto diff (11-26-2016 06:04) Baso % = 0.2 % 0.1-2.0 complet 017 ed 06:04 Blood 2 = 10.6 4.8-10. complet leukocy 017 K/MM3 8 ed kelley 06:04 count (number /volume ) Automat = 16.9 11.5-17 complet ed 017 % .5 ed erythro 06:04 cyte distrib ution width Red = 3.83 4.6-6.2 complet blood 017 M/mm3 ed cell 06:04 count Blood = 357 142-424 complet platele 017 K/mm3 ed t count 06:04 Automat = 8.2 7.4-10. complet ed 017 fl 4 ed blood 06:04 platele t mean volume austyn Dixie % = 8.8 % 1.7-9.3 complet 017 ed 06:04 Absolut = 0.9 0.1-1.0 complet e 017 K/mm3 ed monocyt 06:04 e count Automat = 87.2 82.2-97 complet ed 017 fl .8 ed erythro 06:04 cyte mean corpusc ular v Automat = 28.9 31.8-35 complet ed 017 g/dl .4 ed erythro 06:04 cyte mean corpusc ular h Mean = 25.2 27-31.2 complet corpusc 017 pg ed ular 06:04 hemoglo bin (MCH) determ Lymphoc = 10.2 10-50 complet yte 017 % ed count, 06:04 blood, automat ed Absolut = 1.1 0.7-4.5 complet e 017 K/mm3 ed lymphoc 06:04 yte count Blood = 9.7 14.1-18 complet hemoglo 017 g/dL .0 ed bin 06:04 measure ment (mass/v olum Blood = 33.4 42.0-52 complet hematoc 017 % .0 ed rit 06:04 (volume fractio n) Granulo = 80.3 37.0-80 complet cyte 017 % .0 ed percent 06:04 age Blood = 8.5 1.3-8.0 complet granulo 017 K/mm3 ed cytes 06:04 automat ed count (numb Automat = 0.4 % 0.1-12. complet ed 017 0 ed blood 06:04 eosinop hils/10 0 leukocy t Automat = 0.1 0.0-0.4 complet ed 017 K/mm3 ed blood 06:04 eosinop hil count Automat = 0.0 0-0.2 complet ed 017 K/MM3 ed blood 06:04 basophi l count (count/ vo Urinalysis with microscopy (11-25-2016 13:05) Comment: Collected by nurse? Y Comment: Hold specimen in OE? N Urine NEGATIV NEG complet total 017 E ed bilirub 13:05 NEGATIV in E L detecti on by test Comment: BILIRUBIN CONFIRMED WITH ICTOTEST:NEGATIVE Urine CLOUDY CLEAR complet appeara 017 CLOUDY ed nce 13:05 L determi nation Urine 3 - 5 O complet leukocy 017 wbc/hpf ed kelley 13:05 count (number /volume ) Urine 4.0 4.0 NEG complet urobili 017 L ed nogen 13:05 E.U./dL detecti on by test str [place] NONE OCC complet s 017 NONE L ed epithel 13:05 #/hpf ial cells detecti on in u Urine > = 1.005-1 complet specifi 017 1.030 .030 ed c 13:05 gravity measure ment Erythro 5-10 0 complet cytes 017 5-10 L ed detecti 13:05 rbc/hpf on in urine sedimen t Urine = TRACE NEG complet protein 017 mg/dL ed 13:05 measure ment by automat ed t Urine = 5.5 5.0-8.5 complet pH 017 ed 13:05 Urine NEGATIV NEG complet nitrite 017 E ed 13:05 NEGATIV detecti E L on by test strip Mucus 2+ 2+ L NONE complet detecti 017 ed on in 13:05 urine sedimen t by lig Mucus NEGATIV NEG complet detecti 017 E ed on in 13:05 NEGATIV urine E L sedimen t by lig Urine NEGATIV NEG complet ketones 017 E ed 13:05 NEGATIV detecti E L on by mg/dL automat ed kelley Hyaline 5-10 NONE complet casts 017 5-10 L ed detecti 13:05 #/lpf on in urine sedimen Glucose = NEG complet ur 017 NEGATIV ed test 13:05 E strip Urine DK YELLOW complet color 017 YELLOW ed 13:05 DK YELLOW L Urine 3+ 3+ L NEG complet blood 017 ed detecti 13:05 on Bacteri 4+ 4+ L O complet a 017 ed detecti 13:05 on in urine sedimen t by MARIANGEL (11-24-2016 13:30) Comment: COMMENTS TO TIME RECORDER: COLLECTED BY PHYSICIAN MARIANGEL = 26 14-82 complet 017 U/L ed 13:30 Comment: Performed at: [facility] Comment: [id number], [place] [id number] Comment: Event Technician: Salvador Martínez PhD, Phone: [phone] Serum or plasma actin IgG antibody assay (11-24-2016 13:30) Comment: COMMENTS TO TIME RECORDER: COLLECTED BY PHYSICIAN Serum = 7 0-19 complet or 017 Units ed plasma 13:30 actin IgG antibod y assay Comment: Negative 0 - 19 Comment: Weak positive 20 - 30 Comment: Moderate to strong positive >30 Comment: Comment: Actin Antibodies are found in 52-85% of patients with Comment: autoimmune hepatitis or chronic active hepatitis and Comment: in 22% of patients with primary biliary cirrhosis. M2 mitochondrial IgG ab (11-24-2016 13:30) Comment: COMMENTS TO TIME RECORDER: COLLECTED BY PHYSICIAN M2 < 20.0 0.0-20. complet mitocho 017 Units 0 ed ndrial 13:30 IgG ab Comment: Negative 0.0 - 20.0 Comment: Equivocal 20.1 - 24.9 Comment: Positive >24.9 Comment: Comment: Mitochondrial (M2) Antibodies are found in 90-96% of Comment: patients with primary biliary cirrhosis. Comment: Performed at: [facility] Comment: [id number], [place] [id number] Comment: Event Technician: Salvador Martínez PhD, Phone: [phone] Quantitative serum IgM measurement (11-24-2016 13:30) Comment: COMMENTS TO TIME RECORDER: COLLECTED BY PHYSICIAN Quantit = 48 15-143 complet ative 017 mg/dL ed serum 13:30 IgM measure ment Comment: Performed at: [facility] Comment: [id number], [place] [id number] Comment: Event Technician: Salvador Martínez PhD, Phone: [phone] Serum or plasma IgG measurement (mass/vo (11-24-2016 13:30) Comment: COMMENTS TO TIME RECORDER: COLLECTED BY PHYSICIAN Serum = 1984 700-160 complet or 017 mg/dL 0 ed plasma 13:30 IgG measure ment (mass/v o Serum IgA antibody assay (11-24-2016 13:30) Comment: COMMENTS TO TIME RECORDER: COLLECTED BY PHYSICIAN Serum = 703 61-437 complet IgA 017 mg/dL ed antibod 13:30 y assay Hepatitis B profile (11-24-2016 13:30) Comment: COMMENTS TO TIME RECORDER: COLLECTED BY PHYSICIAN Hepatit Negativ Negativ complet is A 017 e e ed IgM 13:30 Negativ e L Serum Negativ Negativ complet hepatit 017 e e ed is B 13:30 Negativ virus e L surface antigen Serum < 0.1 0.0-0.9 complet or 017 ed plasma 13:30 hepatit is C virus antibo Comment: INFCE Result Units: s/co ratio Comment: Negative: < 0.8 Comment: Indeterminate: 0.8 - 0.9 Comment: Positive: > 0.9 Comment: Comment: The CDC recommends that a positive HCV antibody result Comment: be followed up with a HCV Nucleic Acid Amplification Comment: test ([id number]). Comment: Performed at: [facility] Comment: [id number], [place] [id number] Comment: Event Technician: Salvador Martínez PhD, Phone: [phone] HBcAb Negativ Negativ complet IgM 017 e e ed 13:30 Negativ e L Alk Phos Isoenzyme (11-24-2016 13:30) Serum = 438 39-117 complet or 017 IU/L ed plasma 13:30 alkalin e phospha tase austyn Comment: Performed at: [facility] Comment: [id number], [place] [id number] Comment: Event Technician: Salvador Martínez PhD, Phone: [phone] Serum = 50 % 13-88 complet or 017 ed plasma 13:30 liver alkalin e phospha ta Serum = 0 % 0-18 complet or 017 ed plasma 13:30 intesti nal alkalin e phos Comment: Performed at: [facility] Comment: [id number], [place] [id number] Comment: Event Technician: Salvador Martínez PhD, Phone: [phone] Serum = 50 % 12-68 complet or 017 ed plasma 13:30 bone alkalin e phospha tas Whole blood INR measurement (11-24-2016 13:30) Comment: COMMENTS TO TIME RECORDER: COLLECTED BY PHYSICIAN Comment: IS PATIENT ON ANTICOAGULANTS? N Prothro = 12.5 9.4-11. complet mbin 017 SECONDS 8 ed time 13:30 (PT) in platele t poor p Whole = 1.16 0.9-1.1 complet blood 017 ed INR 13:30 measure ment Comment: INDICATION INR RANGE Comment: Comment: THERAPY FOR DVT, PE, ATRIAL FIB; 2.0 - 3.0 Comment: PROPHYLAXIS FOR VTE Comment: Comment: THERAPY FOR MECHANICAL HEART 2.5 - 3.5 Comment: VALVE; PREVENTION OF SYSTEMIC Comment: EMBOLISM SECONDARY TO AMI Ammonia measurement (11-24-2016 13:30) Comment: COMMENTS TO TIME RECORDER: COLLECTED BY PHYSICIAN Ammonia = 17 19-54 complet 017 umoL/L ed measure 13:30 ment Gamma glutamyl transferase (GGT) measure (11-24-2016 13:30) Gamma = 147 15-85 complet glutamy 017 U/L ed l 13:30 transfe rase (GGT) measure Comprehensive metabolic panel (11-24-2016 06:20) Serum = 106 98-107 complet or 017 mmoL/L ed plasma 06:20 chlorid e measure ment (mo Protein = 6.7 6.4-8.2 complet total 017 gm/dL ed ser/wolfgang 06:20 s ALT = 34 12-78 complet (SGPT) 017 U/L ed ser/wolfgang 06:20 s Serum = 42 15-37 complet or 017 U/L ed plasma 06:20 asparta te aminotr ansfera Serum = 136 136-145 complet sodium 017 mmoL/L ed measure 06:20 ment Serum = 4.2 3.5-5.1 complet potassi 017 mmoL/L ed um 06:20 measure ment Serum = 112 74-106 complet or 017 mg/dL ed plasma 06:20 glucose measure ment (mas Serum = 5.3 1.3-3.2 complet globuli 017 gm/dL ed n 06:20 measure ment (mass/v olume) Estimat = 66 >60 complet ed 017 ML/MIN ed glomeru 06:20 lar filtrat ion rate (GF Comment: REFERENCE RANGE: >60 ML/MIN/1.73 SQUARE METERS Comment: If this patient is -[place], then multiply the Comment: result by 1.210. Estimat = 102 50-200 complet ion of 017 ML/MIN ed creatin 06:20 ine renal clearan ce Serum = 1.1 0.70-1. complet or 017 mg/dL 30 ed plasma 06:20 creatin ine measure ment ( Carbon = 22 21.0-32 complet dioxide 017 mmoL/L .0 ed 06:20 measure ment Serum = 7.9 8.5-10. complet or 017 mg/dL 1 ed plasma 06:20 calcium measure ment (mas Serum = 39 7-18 complet or 017 mg/dL ed plasma 06:20 urea nitroge n measure men Serum = 1.1 0.2-1.0 complet or 017 mg/dL ed plasma 06:20 total bilirub in measure m Serum = 443 46-116 complet or 017 U/L ed plasma 06:20 alkalin e phospha tase austyn Serum = 1.4 3.4-5.0 complet or 017 gm/dL ed plasma 06:20 albumin measure ment (mas Serum = 0.3 1.1-1.8 complet or 017 ed plasma 06:20 albumin /globul in mass ra CBC w auto diff (11-24-2016 06:20) Blood = 10.4 4.8-10. complet leukocy 017 K/MM3 8 ed kelley 06:20 count (number /volume ) Automat = 17.1 11.5-17 complet ed 017 % .5 ed erythro 06:20 cyte distrib ution width Red = 3.70 4.6-6.2 complet blood 017 M/mm3 ed cell 06:20 count Blood = 268 142-424 complet platele 017 K/mm3 ed t count 06:20 Automat = 7.8 7.4-10. complet ed 017 fl 4 ed blood 06:20 platele t mean volume austyn Dixie % = 10.8 1.7-9.3 complet 017 % ed 06:20 Absolut = 1.1 0.1-1.0 complet e 017 K/mm3 ed monocyt 06:20 e count Automat = 87.3 82.2-97 complet ed 017 fl .8 ed erythro 06:20 cyte mean corpusc ular v Automat = 29.4 31.8-35 complet ed 017 g/dl .4 ed erythro 06:20 cyte mean corpusc ular h Mean = 25.6 27-31.2 complet corpusc 017 pg ed ular 06:20 hemoglo bin (MCH) determ Lymphoc = 11.6 10-50 complet yte 017 % ed count, 06:20 blood, automat ed Absolut = 1.2 0.7-4.5 complet e 017 K/mm3 ed lymphoc 06:20 yte count Blood = 9.5 14.1-18 complet hemoglo 017 g/dL .0 ed bin 06:20 measure ment (mass/v olum Blood = 32.3 42.0-52 complet hematoc 017 % .0 ed rit 06:20 (volume fractio n) Granulo = 76.8 37.0-80 complet cyte 017 % .0 ed percent 06:20 age Blood = 8.0 1.3-8.0 complet granulo 017 K/mm3 ed cytes 06:20 automat ed count (numb Automat = 0.5 % 0.1-12. complet ed 017 0 ed blood 06:20 eosinop hils/10 0 leukocy t Automat = 0.1 0.0-0.4 complet ed 017 K/mm3 ed blood 06:20 eosinop hil count Baso % = 0.1 % 0.1-2.0 complet 017 ed 06:20 Automat = 0.0 0-0.2 complet ed 017 K/MM3 ed blood 06:20 basophi l count (count/ vo Gram negative automated antibiotic susceptibility test (11-23-2016 08:25) Clindam 10-15-2 <= 0.25 complet ycin 017 ug/ml ed suscept 08:25 ibility test by minimum inhibit ory concent ration Vancomy 10-15-2 = 1 complet meghan 017 ug/ml ed suscept 08:25 ibility test by minimum inhibit ory concent ration Tetracy 10-15-2 <= 1 complet see 017 ug/ml ed suscept 08:25 ibility test by minimum inhibit ory concent ration Trimeth 10-15-2 <= 10 complet oprim/s 017 ug/ml ed ulfamet 08:25 hoxazol e suscept ibility test by minimum inhibit ory concent ration Rifampi 10-15-2 <= 0.5 complet n 017 ug/ml ed suscept 08:25 ibility test by minimum inhibit ory concent ration Penicil 10-15-2 >= 0.5 complet sukhwinder G 017 ug/ml ed suscept 08:25 ibility test by minimum inhibit ory concent ration Oxacill 10-15-2 <= 0.25 complet in 017 ug/ml ed suscept 08:25 ibility test by minimum inhibit ory concent ration Levoflo 10-15-2 <= 0.12 complet xacin 017 ug/ml ed suscept 08:25 ibility test by minimum inhibit ory concent ration Gentami 10-15-2 <= 0.5 complet meghan 017 ug/ml ed suscept 08:25 ibility test by minimum inhibit ory concent ration Nitrofu 10-15-2 <= 16 complet rantoin 017 ug/ml ed 08:25 suscept ibility test by minimum inhibit ory concent ration Erythro 10-15-2 = 0.5 complet mycin 017 ug/ml ed suscept 08:25 ibility test by minimum inhibit ory concent ration Gram negative automated antibiotic susceptibility test (11-23-2016 08:24) Vancomy 10-15-2 = 1 complet meghan 017 ug/ml ed suscept 08:24 ibility test by minimum inhibit ory concent ration Tetracy 10-15-2 <= 1 complet see 017 ug/ml ed suscept 08:24 ibility test by minimum inhibit ory concent ration Trimeth 10-15-2 <= 10 complet oprim/s 017 ug/ml ed ulfamet 08:24 hoxazol e suscept ibility test by minimum inhibit ory concent ration Rifampi 10-15-2 <= 0.5 complet n 017 ug/ml ed suscept 08:24 ibility test by minimum inhibit ory concent ration Penicil 10-15-2 >= 0.5 complet sukhwinder G 017 ug/ml ed suscept 08:24 ibility test by minimum inhibit ory concent ration Oxacill 10-15-2 <= 0.25 complet in 017 ug/ml ed suscept 08:24 ibility test by minimum inhibit ory concent ration Levoflo 10-15-2 <= 0.12 complet xacin 017 ug/ml ed suscept 08:24 ibility test by minimum inhibit ory concent ration Gentami 10-15-2 <= 0.5 complet meghan 017 ug/ml ed suscept 08:24 ibility test by minimum inhibit ory concent ration Nitrofu 10-15-2 <= 16 complet rantoin 017 ug/ml ed 08:24 suscept ibility test by minimum inhibit ory concent ration Erythro 10-15-2 = 0.5 complet mycin 017 ug/ml ed suscept 08:24 ibility test by minimum inhibit ory concent ration Clindam 10-15-2 <= 0.25 complet ycin 017 ug/ml ed suscept 08:24 ibility test by minimum inhibit ory concent ration Antibiotic sensitivity studies (11-23-2016 08:22) Piperac 10-15-2 <= 4 complet illin/t 017 ug/ml ed azobact 08:22 am suscept ibility test by minimum inhibit ory concent ration Tobramy 10-15-2 <= 1 complet meghan 017 ug/ml ed suscept 08:22 ibility test by minimum inhibit ory concent ration Ampicil 10-15-2 <= 2 complet sukhwinder/sul 017 ug/ml ed bactam 08:22 suscept ibility test by minimum inhibit ory concent ration Levoflo 10-15-2 <= 0.12 complet xacin 017 ug/ml ed suscept 08:22 ibility test by minimum inhibit ory concent ration Imipene 10-15-2 <= 0.25 complet m 017 ug/ml ed suscept 08:22 ibility test by minimum inhibit ory concent ration Gentami 10-15-2 <= 1 complet meghan 017 ug/ml ed suscept 08:22 ibility test by minimum inhibit ory concent ration Nitrofu 10-15-2 <= 16 complet rantoin 017 ug/ml ed 08:22 suscept ibility test by minimum inhibit ory concent ration Cefepim 10-15-2 <= 1 complet e 017 ug/ml ed suscept 08:22 ibility test by minimum inhibit ory concent ration Ertapen 10-15-2 <= 0.5 complet em 017 ug/ml ed suscept 08:22 ibility test by minimum inhibit ory concent ration Extende 10-15-2 = ug/ml complet d 017 ed spectru 08:22 m beta lactama se (ESBL) produci ng bacteri a suscept ibility test by minimum inhibit ory Cefazol 10-15-2 <= 4 complet in 017 ug/ml ed suscept 08:22 ibility test by minimum inhibit ory concent ration Ceftria 10-15-2 <= 1 complet xone 017 ug/ml ed suscept 08:22 ibility test by minimum inhibit ory concent ration Ceftazi 10-15-2 <= 1 complet dime/po 017 ug/ml ed tassium 08:22 clavula todd suscept ibility test by minimum inhibit ory concent ration Amoxici -15-2 = 4 complet llin/cl 017 ug/ml ed avulana 08:22 te suscept ibility test by minimum inhibit ory concent ration Ampicil -15-2 <= 2 complet sukhwinder 017 ug/ml ed suscept 08:22 ibility test by minimum inhibit ory concent ration Trimeth 10-15-2 <= 20 complet oprim/s 017 ug/ml ed ulfamet 08:22 hoxazol e suscept ibility test by minimum inhibit ory concent ration Comprehensive metabolic panel (11-22-2016 05:50) Protein = 6.0 6.4-8.2 complet total 017 gm/dL ed ser/wolfgang 05:50 s ALT = 25 12-78 complet (SGPT) 017 U/L ed ser/wolfgang 05:50 s Serum = 29 15-37 complet or 017 U/L ed plasma 05:50 asparta te aminotr ansfera Serum = 137 136-145 complet sodium 017 mmoL/L ed measure 05:50 ment Serum = 4.6 3.5-5.1 complet potassi 017 mmoL/L ed um 05:50 measure ment Serum = 107 74-106 complet or 017 mg/dL ed plasma 05:50 glucose measure ment (mas Serum = 4.5 1.3-3.2 complet globuli 017 gm/dL ed n 05:50 measure ment (mass/v olume) Estimat = 54 >60 complet ed 017 ML/MIN ed glomeru 05:50 lar filtrat ion rate (GF Comment: REFERENCE RANGE: >60 ML/MIN/1.73 SQUARE METERS Comment: If this patient is -[place], then multiply the Comment: result by 1.210. Estimat = 85 50-200 complet ion of 017 ML/MIN ed creatin 05:50 ine renal clearan ce Serum = 1.3 0.70-1. complet or 017 mg/dL 30 ed plasma 05:50 creatin ine measure ment ( Carbon = 25 21.0-32 complet dioxide 017 mmoL/L .0 ed 05:50 measure ment Serum = 104 98-107 complet or 017 mmoL/L ed plasma 05:50 chlorid e measure ment (mo Serum = 7.7 8.5-10. complet or 017 mg/dL 1 ed plasma 05:50 calcium measure ment (mas Serum = 0.3 1.1-1.8 complet or 017 ed plasma 05:50 albumin /globul in mass ra Serum = 39 7-18 complet or 017 mg/dL ed plasma 05:50 urea nitroge n measure men Serum = 1.0 0.2-1.0 complet or 017 mg/dL ed plasma 05:50 total bilirub in measure m Serum = 326 46-116 complet or 017 U/L ed plasma 05:50 alkalin e phospha tase austyn Serum = 1.5 3.4-5.0 complet or 017 gm/dL ed plasma 05:50 albumin measure ment (mas CBC w auto diff (11-22-2016 05:50) Blood = 10.9 4.8-10. complet leukocy 017 K/MM3 8 ed kelley 05:50 count (number /volume ) Automat = 17.4 11.5-17 complet ed 017 % .5 ed erythro 05:50 cyte distrib ution width Red = 3.62 4.6-6.2 complet blood 017 M/mm3 ed cell 05:50 count Blood = 199 142-424 complet platele 017 K/mm3 ed t count 05:50 Automat = 7.7 7.4-10. complet ed 017 fl 4 ed blood 05:50 platele t mean volume austyn Dixie % = 6.9 % 1.7-9.3 complet 017 ed 05:50 Absolut = 0.8 0.1-1.0 complet e 017 K/mm3 ed monocyt 05:50 e count Automat = 85.9 82.2-97 complet ed 017 fl .8 ed erythro 05:50 cyte mean corpusc ular v Automat = 29.2 31.8-35 complet ed 017 g/dl .4 ed erythro 05:50 cyte mean corpusc ular h Mean = 25.1 27-31.2 complet corpusc 017 pg ed ular 05:50 hemoglo bin (MCH) determ Lymphoc = 8.3 % 10-50 complet yte 017 ed count, 05:50 blood, automat ed Absolut = 0.9 0.7-4.5 complet e 017 K/mm3 ed lymphoc 05:50 yte count Blood = 9.1 14.1-18 complet hemoglo 017 g/dL .0 ed bin 05:50 measure ment (mass/v olum Blood = 31.1 42.0-52 complet hematoc 017 % .0 ed rit 05:50 (volume fractio n) Granulo = 84.5 37.0-80 complet cyte 017 % .0 ed percent 05:50 age Blood = 9.2 1.3-8.0 complet granulo 017 K/mm3 ed cytes 05:50 automat ed count (numb Automat = 0.1 % 0.1-12. complet ed 017 0 ed blood 05:50 eosinop hils/10 0 leukocy t Automat = 0.0 0.0-0.4 complet ed 017 K/mm3 ed blood 05:50 eosinop hil count Baso % = 0.2 % 0.1-2.0 complet 017 ed 05:50 Automat = 0.0 0-0.2 complet ed 017 K/MM3 ed blood 05:50 basophi l count (count/ vo Aerobic bacterial blood culture (11-21-2016 11:40) Comment: Is patient on antibiotics? N Aerobic RESULTS complet 017 CALLED ed bacteri 11:40 TO: Horace Prabhakar blood RN culture 7 4000 Paul Jenkins Blood lactic acid measurement (moles/vol (11-21-2016 11:40) Blood = 1.6 0.4-2.0 complet lactic 017 mmol/L ed acid 11:40 measure ment (moles/ vol Blood anaerobic culture (11-21-2016 11:40) Comment: Is patient on antibiotics? N Blood [id number] complet anaerob 017 ed ic 11:40 Staphyl culture ococcus aureus SCT SAUR STAPHYL OCOCCUS AUREUS L Blood RESULTS complet anaerob 017 CALLED ed ic 11:40 TO: culture DERRICK.CAC H 7 [id number] Sourav Mondragon Blood REFER complet anaerob 017 TO ed ic 11:40 AEROBIC culture BLOOD CULTURE Blood RESULTS complet anaerob 017 : ed ic 11:40 culture Aerobic bacterial blood culture (11-21-2016 11:40) Comment: Is patient on antibiotics? N Aerobic [id number] complet 017 ed bacteri 11:40 Staphyl al ococcus blood aureus culture SCT SAUR STAPHYL OCOCCUS AUREUS L Aerobic RESULTS complet 017 CALLED ed bacteri 11:40 TO: K al HUGH blood RN culture 7 [id number] Paul Jenkins Aerobic RESULTS complet 017 : ed bacteri 11:40 STAPHYL al OCOCCUS blood AUREUS culture Urine culture (11-21-2016 10:55) Urine [id number] complet culture 017 07 ed 10:55 Escheri anne coli SCT EC ESCHERI ANNE COLI L Urinalysis with microscopy (11-21-2016 10:55) Urine 20 - 50 O complet leukocy 017 ed kelley 10:55 wbc/hpf count (number /volume ) Urine 4.0 4.0 NEG complet urobili 017 L ed nogen 10:55 E.U./dL detecti on by test str Squamou 3-5 3-5 OCC complet s 017 L ed epithel 10:55 #/hpf ial cells detecti on in u Urine = 1.010 1.005-1 complet specifi 017 .030 ed c 10:55 gravity measure ment Erythro 20-50 0 complet cytes 017 20-50 L ed detecti 10:55 on in rbc/hpf urine sedimen t Urine 1 + NEG complet protein 017 mg/dL ed 10:55 measure ment by automat ed t Urine = 7.5 5.0-8.5 complet pH 017 ed 10:55 Urine POSITIV NEG complet nitrite 017 E ed 10:55 POSITIV detecti E L on by test strip Mucus 1+ 1+ L NEG complet detecti 017 ed on in 10:55 urine sedimen t by lig Urine NEGATIV NEG complet ketones 017 E ed 10:55 NEGATIV detecti E L on by mg/dL automat ed kelley Glucose = NEG complet ur 017 NEGATIV ed test 10:55 E strip Urine DK YELLOW complet color 017 YELLOW ed 10:55 DK YELLOW L Urine 3+ 3+ L NEG complet blood 017 ed detecti 10:55 on Urine NEGATIV NEG complet total 017 E ed bilirub 10:55 NEGATIV in E L detecti on by test Bacteri 4+ 4+ L O complet a 017 ed detecti 10:55 on in urine sedimen t by Urine TURBID CLEAR complet appeara 017 TURBID ed nce 10:55 L determi nation Urinalysis dipstick W Reflex Microscopic panel in Urine (11-21-2016 10:55) Bacteri 4+ O complet a 017 ed [Presen 10:55 ce] in Urine sedimen t by Light microsc opy Erythro 20-50 0 complet cytes 017 ed [Presen 10:55 ce] in Urine sedimen t by Light microsc opy Epithel 3-5 OCC complet ial 017 ed cells.s [...] 10:55 ce] in Urine by Test strip Lipase measurement (11-21-2016 10:50) Comment: COMMENTS TO TIME RECORDER: PLEASE USE BLOOD ALREADY DRAWN Lipase = 128 73-393 complet measure 017 U/L ed ment 10:50 Amylase ser/plas (11-21-2016 10:50) Comment: COMMENTS TO TIME RECORDER: PLEASE USE BLOOD ALREADY DRAWN Amylase = 41 25-115 complet 017 U/L ed ser/wolfgang 10:50 s Differential panel, method unspecified - (11-21-2016 10:50) Blood 1+ 1+ L complet anisocy 017 ed tosis 10:50 detecti on Blood = 100 complet total 017 #CELLS ed cell 10:50 count Neutrop = 89 % 42-76 complet hil 017 ed count 10:50 Platele NORMAL complet t 017 NORMAL ed estimat 10:50 L e Monocyt = 2 % 2-9 complet e % 017 ed 10:50 LYMPH 6 % 10-50 complet 017 ed 10:50 Hypochr 1+ 1+ L complet omatic 017 ed red 10:50 blood cell detecti on Manual = 1 % 0-3 complet blood 017 ed eosinop 10:50 hils/10 0 leukocy kelley Automat = 2 % 0-8 complet ed 017 ed blood 10:50 band neutrop hil percent a CBC w auto diff (11-21-2016 10:50) Blood = 13.3 4.8-10. complet leukocy 017 K/MM3 8 ed kelley 10:50 count (number /volume ) Automat = 17.2 11.5-17 complet ed 017 % .5 ed erythro 10:50 cyte distrib ution width Red = 4.35 4.6-6.2 complet blood 017 M/mm3 ed cell 10:50 count Blood = 267 142-424 complet platele 017 K/mm3 ed t count 10:50 Automat = 7.3 7.4-10. complet ed 017 fl 4 ed blood 10:50 platele t mean volume austyn Dixie % = 5.3 % 1.7-9.3 complet 017 ed 10:50 Absolut = 0.7 0.1-1.0 complet e 017 K/mm3 ed monocyt 10:50 e count Automat = 86.9 82.2-97 complet ed 017 fl .8 ed erythro 10:50 cyte mean corpusc ular v Automat = 29.3 31.8-35 complet ed 017 g/dl .4 ed erythro 10:50 cyte mean corpusc ular h Mean = 25.5 27-31.2 complet corpusc 017 pg ed ular 10:50 hemoglo bin (MCH) determ Lymphoc = 5.5 % 10-50 complet yte 017 ed count, 10:50 blood, automat ed Absolut = 0.7 0.7-4.5 complet e 017 K/mm3 ed lymphoc 10:50 yte count Blood = 11.1 14.1-18 complet hemoglo 017 g/dL .0 ed bin 10:50 measure ment (mass/v olum Blood = 37.8 42.0-52 complet hematoc 017 % .0 ed rit 10:50 (volume fractio n) Granulo = 88.9 37.0-80 complet cyte 017 % .0 ed percent 10:50 age Blood = 11.9 1.3-8.0 complet granulo 017 K/mm3 ed cytes 10:50 automat ed count (numb Automat = 0.1 % 0.1-12. complet ed 017 0 ed blood 10:50 eosinop hils/10 0 leukocy t Automat = 0.0 0.0-0.4 complet ed 017 K/mm3 ed blood 10:50 eosinop hil count Baso % = 0.2 % 0.1-2.0 complet 017 ed 10:50 Automat = 0.0 0-0.2 complet ed 017 K/MM3 ed blood 10:50 basophi l count (count/ vo Cardiac enzymes (11-21-2016 10:50) Serum < 0.02 0.00-0. complet or 017 ng/mL 06 ed plasma 10:50 troponi n i.cardi ac measu Serum = 32 39-308 complet or 017 U/L ed plasma 10:50 creatin e kinase measure m Serum < 0.5 0.0-3.6 complet or 017 ng/mL ed plasma 10:50 creatin e kinase MB measu Serum = 1.6 0-4.0 complet or 017 U/L ed plasma 10:50 creatin e kinase MB (CK-M Comprehensive metabolic panel (11-21-2016 10:50) Protein = 8.4 6.4-8.2 complet total 017 gm/dL ed ser/wolfgang 10:50 s ALT = 35 12-78 complet (SGPT) 017 U/L ed ser/wolfgang 10:50 s Serum = 39 15-37 complet or 017 U/L ed plasma 10:50 asparta te aminotr ansfera Serum = 134 136-145 complet sodium 017 mmoL/L ed measure 10:50 ment Serum = 4.7 3.5-5.1 complet potassi 017 mmoL/L ed um 10:50 measure ment Serum = 108 74-106 complet or 017 mg/dL ed plasma 10:50 glucose measure ment (mas Serum = 6.4 1.3-3.2 complet globuli 017 gm/dL ed n 10:50 measure ment (mass/v olume) Estimat = 46 >60 complet ed 017 ML/MIN ed glomeru 10:50 lar filtrat ion rate (GF Comment: REFERENCE RANGE: >60 ML/MIN/1.73 SQUARE METERS Comment: If this patient is -[place], then multiply the Comment: result by 1.210. Estimat = 70 50-200 complet ion of 017 ML/MIN ed creatin 10:50 ine renal clearan ce Serum = 1.5 0.70-1. complet or 017 mg/dL 30 ed plasma 10:50 creatin ine measure ment ( Carbon = 27 21.0-32 complet dioxide 017 mmoL/L .0 ed 10:50 measure ment Serum = 100 98-107 complet or 017 mmoL/L ed plasma 10:50 chlorid e measure ment (mo Serum = 8.7 8.5-10. complet or 017 mg/dL 1 ed plasma 10:50 calcium measure ment (mas Serum = 41 7-18 complet or 017 mg/dL ed plasma 10:50 urea nitroge n measure men Serum = 1.5 0.2-1.0 complet or 017 mg/dL ed plasma 10:50 total bilirub in measure m Serum = 405 46-116 complet or 017 U/L ed plasma 10:50 alkalin e phospha tase austyn Serum = 2.0 3.4-5.0 complet or 017 gm/dL ed plasma 10:50 albumin measure ment (mas Serum = 0.3 1.1-1.8 complet or 017 ed plasma 10:50 albumin /globul in mass ra Differential panel, method unspecified - (11-21-2016 10:50) [...] sedimen t by Light microsc opy Hyaline --2 3-5 NONE complet casts 017 ed [Presen 05:15 ce] in Urine sedimen t by Light microsc opy Leukocy --2 3-5 O complet kelley 017 wbc/hpf ed [#/volu 05:15 me] in Urine Urinalysis dipstick W Reflex Microscopic panel in Urine (10-13-2016 05:15) Appeara 10-13-2 CLEAR CLEAR complet nce of 017 ed Urine 05:15 Bilirub 10-13-2 NEGATIV NEG complet in 017 E ed [Presen 05:15 ce] in Urine by Test strip Erythro NEGATIV NEG complet cytes 017 E ed [Presen 05:15 ce] in Urine Color 10-13- YELLOW YELLOW complet of 017 ed Urine 05:15 Ketones NEGATIV NEG complet 017 E ed [Presen 05:15 ce] in Urine by Automat ed test strip Mucus NEGATIV NEG complet [Presen 017 E ed ce] in 05:15 Urine sedimen t by Light microsc opy Nitrite 10-13-2 NEGATIV NEG complet 017 E ed [Presen 05:15 ce] in Urine by Test strip Urobili 10-13-2 0.2 NEG complet nogen 017 ed [Presen 05:15 ce] in Urine by Test strip URINALYSIS/COMPLETE (05-04-2012 09:10) URINE -26-2 YELLOW YELLOW complet COLOR 013 ed 09:10 [...] complet BLOOD 013 E ed 09:10 URINE --2 6.0 UNK 5.0-8.5 complet PH 013 ed 09:10 URINE 05-04-2 NEGATIV NEG complet PROTEIN 013 E mg/dL ed - 09:10 DIPSTIC K URINE 05-04-2 0.2 NEG complet UROBILI 013 E.U./dL ed NOGEN - 09:10 DIPSTIC K URINE 05-04-2 NEGATIV NEG complet NITRATE 013 E ed - 09:10 DIPSTIC K URINE 05-04-2 NEGATIV NEG complet LEUK 013 E ed ESTERAS 09:10 E URINE 05-04-2 OCC 0 complet RBC 013 rbc/hpf ed 09:10 URINE 05-04-2 OCC OCC complet SQUAMOU 013 #/hpf ed S CELLS 09:10 BASIC METABOLIC PANEL (05-04-2012 06:30) Glucose 92 74-106 complet 013 mg/dL ed Bld-mCn 06:30 c BUN 05-04-2 17 7-18 complet Bld-mCn 013 mg/dL ed c 06:30 Creat 2 1.1 0.8-1.3 complet SerPl-m 013 mg/dL ed Cnc 06:30 ESTIMAT 05-04-2 95 50-200 complet ED 013 ML/MIN ed CREATIN 06:30 INE CLEARAN CE GFR 2 66 Greater complet (ESTIMA 013 ML/MIN than ed ALFA) 06:30 60 Sodium 05-04- 141 136-145 complet SerPl-s 013 mmoL/L ed Cnc 06:30 Potassi 3.4 3.5-5.1 complet um 013 mmoL/L ed SerPl-s 06:30 Cnc Chlorid 108 98-107 complet e 013 mmoL/L ed SerPl-s 06:30 Cnc CO2 05-04-2 27 21.0-32 complet SerPl-s 013 mmoL/L .0 ed Cnc 06:30 Calcium 05-04-2 7.9 8.5-10. complet 013 mg/dL 1 ed SerPl-m 06:30 Cnc CBC with AUTO DIFF (05-04-2012 06:30) WBC # 05-04-2 4.6 4.8-10. complet Bld 013 K/MM3 8 ed Auto 06:30 RBC # 05-04-2 3.75 4.6-6.2 complet Bld 013 M/mm3 ed Auto 06:30 Hgb 03-26-2 11.3 14.1-18 complet Bld-mCn 013 g/dL .0 ed c 06:30 Hct Fr 05-04-2 34.5 % 42.0-52 complet Bld 013 .0 ed 06:30 MCV RBC 05-04-2 92.2 fl 82.2-97 complet 013 .8 ed 06:30 MCH RBC 05-04-2 30.2 pg 27-31.2 complet Qn 013 ed Auto 06:30 MEAN 05-04-2 32.8 31.8-35 complet CORPUSC 013 g/dl .4 ed ULAR 06:30 HGB CONC RDW RBC 05-04-2 16.2 % 11.5-17 complet Auto 013 .5 ed 06:30 Platele 05-04-2 244 142-424 complet t Bld 013 K/mm3 ed Ql 06:30 Manual MEAN 05-04-2 7.2 fl 7.4-10. complet PLATELE 013 4 ed T 06:30 VOLUME Granulo 05-04-2 70.0 % 37.0-80 complet cytes 013 .0 ed Fr Bld 06:30 Auto LYMPH % -26-2 22.6 % 10-50 complet 013 ed 06:30 Monocyt -26-2 6.1 % 1.7-9.3 complet es Fr 013 ed Bld 06:30 Auto Eosinop 03-26-2 0.8 % 0.1-12. complet hil Fr 013 0 ed Bld 06:30 Auto Basophi 03-26-2 0.5 % 0.1-2.0 complet ls Fr 013 ed Bld 06:30 Auto Granulo 03-26-2 3.2 1.3-8.0 complet cytes # 013 K/mm3 ed Bld 06:30 Auto Lymphoc 03-26-2 1.0 0.7-4.5 complet ytes Fr 013 K/mm3 ed Bld 06:30 Auto Monocyt 03-26-2 0.3 0.1-1.0 complet es # 013 K/mm3 ed Bld 06:30 Auto Eosinop 03-26-2 0.0 0.0-0.4 complet hil # 013 K/mm3 ed Bld 06:30 Auto Basophi 03-26-2 0.0 0-0.2 complet ls # 013 K/MM3 ed Bld 06:30 Auto COMPREHENSIVE METABOLIC PANEL (05-03-2012 10:30) Glucose 113 74-106 complet 013 mg/dL ed Bld-mCn 10:30 c BUN 22 7-18 complet Bld-mCn 013 mg/dL ed c 10:30 Creat 1.4 0.8-1.3 complet SerPl-m 013 mg/dL ed Cnc 10:30 GFR 50 Greater complet (ESTIMA 013 ML/MIN than ed ALFA) 10:30 60 Sodium 140 136-145 complet SerPl-s 013 mmoL/L ed Cnc 10:30 Potassi 4.1 3.5-5.1 complet um 013 mmoL/L ed SerPl-s 10:30 Cnc Chlorid 107 98-107 complet e 013 mmoL/L ed SerPl-s 10:30 Cnc CO2 28 21.0-32 complet SerPl-s 013 mmoL/L .0 ed Cnc 10:30 Calcium 7.9 8.5-10. complet 013 mg/dL 1 ed SerPl-m 10:30 Cnc Prot 5.4 6.4-8.2 complet SerPl-m 013 gm/dL ed Cnc 10:30 Albumin 2.8 3.4-5.0 complet 013 gm/dL ed SerPl-m 10:30 Cnc Globuli 2.6 1.3-3.2 complet n 013 gm/dL ed Ser-mCn 10:30 c Albumin 05-03-2 1.1 UNK 1.1-1.8 complet /Glob 013 ed SerPl-m 10:30 Rto Bilirub 0.8 0.2-1.0 complet 013 mg/dL ed SerPl-m 10:30 Cnc AST 19 U/L 15-37 complet SerPl-c 013 ed Cnc 10:30 ALT 37 U/L 30-65 complet SerPl-c 013 ed Cnc 10:30 ALP 144 U/L 50-136 complet SerPl-c 013 ed Cnc 10:30 BNP Bld-mCnc (05-03-2012 10:30) BNP 03-25-2 44 0-100 complet Bld-mCn 013 pg/mL ed c 10:30 CBC with AUTO DIFF (05-03-2012 10:30) WBC # 03-25-2 6.3 4.8-10. complet Bld 013 K/MM3 8 ed Auto 10:30 RBC # 03-25-2 3.82 4.6-6.2 complet Bld 013 M/mm3 ed Auto 10:30 Hgb 03-25-2 11.4 14.1-18 complet Bld-mCn 013 g/dL .0 ed c 10:30 Hct Fr -25-2 35.2 % 42.0-52 complet Bld 013 .0 ed 10:30 MCV RBC 03-25-2 92.2 fl 82.2-97 complet 013 .8 ed 10:30 MCH RBC -25-2 29.8 pg 27-31.2 complet Qn 013 ed Auto 10:30 MEAN 03-25-2 32.4 31.8-35 complet CORPUSC 013 g/dl .4 ed ULAR 10:30 HGB CONC RDW RBC -25-2 16.2 % 11.5-17 complet Auto 013 .5 ed 10:30 Platele -25-2 263 142-424 complet t Bld 013 K/mm3 ed Ql 10:30 Manual MEAN -25-2 7.1 fl 7.4-10. complet PLATELE 013 4 [...] 013 K/mm3 ed Bld 10:30 Auto Monocyt 05-03-2 0.4 0.1-1.0 complet es # 013 K/mm3 ed Bld 10:30 Auto Eosinop 2 0.0 0.0-0.4 complet hil # 013 K/mm3 ed Bld 10:30 Auto Basophi 0.0 0-0.2 complet ls # 013 K/MM3 ed Bld 10:30 Auto Encounters Encounter Start End Date Code Location Performer Type Date Inpatient IMP Leroy Rodrigue ([place]) 3 10:17 3 17:50 [facility], [place]
--- OUTSIDE RECORDS SUMMARY | 2016-12-13 23:24 | External Medical Summary Rpt | CCD ---
Author Author , ELIGIO DEL VALLE Address Unknown Phone [email or web address] Care Team Providers Care Camera Maker Name Role Phone Anne Traore APRN, Unavailable Unavailable Anne Husain MD, Unavailable Unavailable Harinder Husain MD Purpose Continuity of Care Document - 05-03-2012 through 2016 Problems Code Diagnosis DOS Provider Status [id number] Headache [facility] [id number] Cervicogeni [facility] 401.9 Essential [facility] 458.8 Drug-induce [facility] [id number] Anxiety [facility] 729.82 Leg cramp [facility] 780.2 Syncope [facility] Allergies, Adverse Reactions, Alerts Type Drug [...] context for Comment: interpretation. Comment: Performed at: [facility] Comment: [address] [place], [place] [id number] Comment: Human Resources Trainer: Salvador Martínez PhD, Phone: [phone] Body fluid glucose assay (12-03-2016 12:45) Body [...] 017 K/mm3 ed monocyt 06:30 e count Ector % = 16.9 1.7-9.3 complet 017 % [...] 017 K/mm3 ed monocyt 04:20 e count Ector % = 15.9 1.7-9.3 complet 017 % [...] SQUARE METERS Comment: If this patient is -[place], then multiply the Comment: result by 1.210. [...] 017 K/mm3 ed monocyt 06:30 e count Ector % = 15.8 1.7-9.3 complet 017 % [...] SQUARE METERS Comment: If this patient is -[place], then multiply the Comment: result by 1.210. [...] trough 06:30 Comment: CALLED TO Jeff MILLARD [facility] 11/30/16 0725 Vancomycin trough (11-29-2016 09:15) Vancomy [...] SQUARE METERS Comment: If this patient is -[place], then multiply the Comment: result by 1.210. [...] WILL HOLD YEAST FOR 5 DAYS. Sputum [id number] complet culture 017 5 Yeast ed 02:35 [...] body fluid (11-27-2016 12:00) Comment: COMMENTS TO WORK COUNSELOR: ascites BODY COMMENT complet FLUID 017 ed [...] measurement (mass/vol (11-27-2016 12:00) Comment: COMMENTS TO WORK COUNSELOR: ascites Body = 0.5 . complet fluid [...] fluid, total (11-27-2016 12:00) Comment: COMMENTS TO WORK COUNSELOR: ascites Protein = 1.7 . complet , [...] context for Comment: interpretation. Comment: Performed at: [facility] Comment: [address], [place] [id number] Comment: Human Resources Trainer: Salvador Martínez PhD, Phone: [phone] Body fluid glucose assay (11-27-2016 12:00) Comment: COMMENTS TO WORK COUNSELOR: ascites Body = 123 . complet fluid [...] SQUARE METERS Comment: If this patient is -[place], then multiply the Comment: result by 1.210. [...] 6.9 6.4-8.2 complet total 017 gm/dL ed ser/woflgang 06:04 s CBC w auto diff (11-26-2016 [...] blood 06:04 platele t mean volume austyn Ector % = 8.8 % 1.7-9.3 complet 017 [...] by MARIANGEL (11-24-2016 13:30) Comment: COMMENTS TO WORK COUNSELOR: COLLECTED BY PHYSICIAN MARIANGEL = 26 14-82 complet 017 U/L ed 13:30 Comment: Performed at: [facility] Comment: [address], [place] [id number] Comment: Human Resources Trainer: Salvador Martínez PhD, Phone: [phone] Serum or plasma actin IgG antibody assay (11-24-2016 13:30) Comment: COMMENTS TO WORK COUNSELOR: COLLECTED BY PHYSICIAN Serum = 7 0-19 [...] IgG ab (11-24-2016 13:30) Comment: COMMENTS TO WORK COUNSELOR: COLLECTED BY PHYSICIAN M2 < 20.0 0.0-20. complet mitocho 017 Units 0 ed ndrial 13:30 IgG ab Comment: Negative 0.0 - 20.0 Comment: Equivocal 20.1 - 24.9 Comment: Positive >24.9 Comment: Comment: Mitochondrial (M2) Antibodies are found in 90-96% of Comment: patients with primary biliary cirrhosis. Comment: Performed at: [facility] Comment: [address], [place] [id number] Comment: Human Resources Trainer: Salvador Martínez PhD, Phone: [phone] Quantitative serum IgM measurement (11-24-2016 13:30) Comment: COMMENTS TO WORK COUNSELOR: COLLECTED BY PHYSICIAN Quantit = 48 15-143 complet ative 017 mg/dL ed serum 13:30 IgM measure ment Comment: Performed at: [facility] Comment: [address], [place] [id number] Comment: Human Resources Trainer: Salvador Martínez PhD, Phone: [phone] Serum or plasma IgG measurement (mass/vo (11-24-2016 13:30) Comment: COMMENTS TO WORK COUNSELOR: COLLECTED BY PHYSICIAN Serum = 1984 700-160 complet or 017 mg/dL 0 ed plasma 13:30 IgG measure ment (mass/v o Serum IgA antibody assay (11-24-2016 13:30) Comment: COMMENTS TO WORK COUNSELOR: COLLECTED BY PHYSICIAN Serum = 703 61-437 complet IgA 017 mg/dL ed antibod 13:30 y assay Hepatitis B profile (11-24-2016 13:30) Comment: COMMENTS TO WORK COUNSELOR: COLLECTED BY PHYSICIAN Hepatit Negativ Negativ complet [...] a HCV Nucleic Acid Amplification Comment: test ([id number]). Comment: Performed at: [facility] Comment: [address], [place] [id number] Comment: Human Resources Trainer: Salvador Martínez PhD, Phone: [phone] HBcAb Negativ Negativ complet IgM 017 e e ed 13:30 Negativ e L Alk Phos Isoenzyme (11-24-2016 13:30) Serum = 438 39-117 complet or 017 IU/L ed plasma 13:30 alkalin e phospha tase austyn Comment: Performed at: [facility] Comment: [address], [place] [id number] Comment: Human Resources Trainer: Salvador Martínez PhD, Phone: [phone] Serum = 50 % 13-88 complet or 017 ed plasma 13:30 liver alkalin e phospha ta Serum = 0 % 0-18 complet or 017 ed plasma 13:30 intesti nal alkalin e phos Comment: Performed at: [facility] Comment: [address] [place], [place] [id number] Comment: Human Resources Trainer: Salvador Martínez PhD, Phone: [phone] Serum = 50 % 12-68 complet or 017 ed plasma 13:30 bone alkalin e phospha tas Whole blood INR measurement (11-24-2016 13:30) Comment: COMMENTS TO WORK COUNSELOR: COLLECTED BY PHYSICIAN Comment: IS PATIENT ON [...] Ammonia measurement (11-24-2016 13:30) Comment: COMMENTS TO WORK COUNSELOR: COLLECTED BY PHYSICIAN Ammonia = 17 19-54 [...] SQUARE METERS Comment: If this patient is -[place], then multiply the Comment: result by 1.210. [...] blood 06:20 platele t mean volume austyn Ector % = 10.8 1.7-9.3 complet 017 % [...] SQUARE METERS Comment: If this patient is -[place], then multiply the Comment: result by 1.210. [...] blood 05:50 platele t mean volume austyn Ector % = 6.9 % 1.7-9.3 complet 017 [...] TO: Horace Prabhakar blood RN culture 7 5630 Paul Jenkins Blood lactic acid measurement (moles/vol (11-21-2016 11:40) Blood = 1.6 0.4-2.0 complet lactic 017 mmol/L ed acid 11:40 measure ment (moles/ vol Blood anaerobic culture (11-21-2016 11:40) Comment: Is patient on antibiotics? N Blood [id number] complet anaerob 017 ed ic 11:40 Staphyl [...] Comment: Is patient on antibiotics? N Aerobic [id number] complet 017 ed bacteri 11:40 Staphyl al ococcus blood aureus culture SCT SAUR STAPHYL OCOCCUS AUREUS L Aerobic RESULTS complet 017 CALLED ed bacteri 11:40 TO: K al HUGH blood RN culture 7 0455 Paul Jenkins Aerobic RESULTS complet 017 : ed bacteri 11:40 STAPHYL al OCOCCUS blood AUREUS culture Urine culture (11-21-2016 10:55) Urine [id number] complet culture 017 07 ed 10:55 Escheri [...] Lipase measurement (11-21-2016 10:50) Comment: COMMENTS TO WORK COUNSELOR: PLEASE USE BLOOD ALREADY DRAWN Lipase = 128 73-393 complet measure 017 U/L ed ment 10:50 Amylase ser/plas (11-21-2016 10:50) Comment: COMMENTS TO WORK COUNSELOR: PLEASE USE BLOOD ALREADY DRAWN Amylase = [...] blood 10:50 platele t mean volume austyn Ector % = 5.3 % 1.7-9.3 complet 017 [...] SQUARE METERS Comment: If this patient is -[place], then multiply the Comment: result by 1.210. [...] Leroy Rodrigue ([place]) 3 10:17 3 17:50 [facility]
--- OUTSIDE RECORDS SUMMARY | 2016-12-13 23:25 | External Medical Summary Rpt | CCD ---
Demographics Preferred Language Niuean Marital Status Unknown Pentecostal Affiliation Unknown Race Unknown Ethnic Group Unknown Author Author , AURELIA DEL VALLE Address Unknown Phone Immunization Unable to retrieve immunization data due to connection failure with Immunization Registry. Please try again later.
--- OUTSIDE RECORDS SUMMARY | 2016-12-13 23:25 | External Medical Summary Rpt | CCD ---
Demographics Preferred Language [place] Marital Status Unknown Shinto Affiliation Unknown Race Unknown Ethnic Group Unknown Author Author , AURELIA DEL VALLE Address Unknown Phone Immunization Unable to retrieve immunization data due to connection failure with Immunization Registry. Please try again later.
--- OUTSIDE RECORDS SUMMARY | 2016-12-13 23:27 | External Medical Summary Rpt ---
Author Author ELIGIO Cee, ELIG[employer] Organization [employer] Address Unknown Phone Unavailable Results Protein [Mass/volume] in Body fluid Observa Value Referen Units Interpr Notes Date tion ce etation Range Protein . g/dL No Dec 03 [Mass/vol informati 2016 e] in on in 12:45 PM Body source fluid data __: Peritonea l : Pleural : Synovial :: :_ :___ ____:: : Transudat e : Exudate : :: :_ __: :___ ____:: Not Estab. : <3 g/dL : >3 g/dL : <2.5 g/dL :: :_ __: :___ ____:The method performan ce specifica tions have not beenestab lished for this test in body fluid. The test resultsho uld be integrate d into the clinical context forinterp retation. The method performan ce specifica tions have not beenestab lished for this test in body fluid. The test resultsho uld be integrate d into the clinical context forinterp retation. Performed at: - [facility] [id number] [place], [place] [id number] [place]: Salvador Martínez PhD, Phone: [phone] Glucose [Mass/volume] in Body fluid Observa Value Referen Units Interpr Notes Date tion ce etation Range Glucose . mg/dL No Dec 03 [Mass/vol informati 2016 ume] in on in 12:45 PM Body source fluid data __: Peritonea l : Pleural : Synovial :: :_ :___ ____:: : Transudat e : Exudate : :: :_ __: :___ ____:: Not Estab. : Equal to simultane ously drawn plasma :: :_ ____:The method performan ce specifica tions have not beenestab lished for this test in body fluid. The test resultsho uld be integrate d into clinical context forinterp retation. The reference intervals and other method performan cespecifi cations have not been establish ed for this test. Thetest result should be integrate d into the clinical contextfo r interpret ation. Cell count & Differential panel in Body fluid Observa Value Referen Units Interpr Notes Date tion ce etation Range BODY COMMENT No No No VOLUME: Dec 03 FLUID informa informa informa 3850 2016 DIFF tion in tion in tion in mLCLARI 12:45 COMMEN source source source TY: PM data data data BLOODYV ISCOSIT Y: NORMAL Monocytes No % No No Nov 25 informati informati informati 2016 [#/volume on in on in on in 12:45 PM ] in Body source source source fluid data data data Neutrophi No % No No Dec 03 ls.segmen informati informati informati 2017 ekaterina/100 on in on in on in 12:45 PM leukocyte source source source s in Body data data data fluid by Manual count Erythrocy No /mm3 No No Nov 25 kelley informati informati informati 2016 [#/volume on in on in on in 12:45 PM ] in Body source source source fluid data data data Specime RIGHT No No No No Dec 03 n LUNG informa informa informa informa 2017 source tion in tion in tion in tion in 12:45 [Identi source source source source PM fier] data data data data of Body fluid Leukocyte No MM No No Dec 03 s informati informati informati 2016 [#/volume on in on in on in 12:45 PM ] in Body source source source fluid data data data Basic metabolic panel in Blood Observa Value Referen Units Interpr Notes Date tion ce etation Range Urea 7 - 18 mg/dL High No Oct 25 nitrogen informati 2017 6:30 [Mass/vol on in AM ume] in source Serum or data Plasma Calcium 8.5 - mg/dL Low No Oct 25 [Mass/vol 10.1 informati 2017 6:30 ume] in on in AM Serum or source Plasma data Chloride 98 - 107 mmoL/L Normal No Oct 25 [Moles/vo informati 2017 6:30 lume] in on in AM Serum or source Plasma data Carbon 21.0 - mmoL/L Normal No Oct 25 dioxide, 32.0 informati 2017 6:30 total on in AM [Moles/vo source lume] in data Serum or Plasma Creatinin 0.70 - mg/dL High No Oct 25 e 1.30 informati 2017 6:30 [Mass/vol on in AM ume] in source Serum or data Plasma Creatinin 50 - 200 ML/MIN Normal No Oct 25 e renal informati 2017 6:30 clearance on in AM source predicted data by Cockcroft -Gault formula Estimated >60 ML/MIN No REFERENCE Oct 25 informati RANGE: 2017 6:30 glomerula on in >60 AM r source ML/MIN/1. filtratio data 73 SQUARE n rate METERSIf (GF this patient is -A merican, then multiply theresult by 1.210. Glucose 74 - 106 mg/dL High No Dec 03 [Mass/vol informati 2016 6:30 ume] in on in AM Serum or source Plasma data Potassium 3.5 - 5.1 mmoL/L Normal No Dec 03 inform2016 6:30 [Moles/vo on in AM lume] in source Serum or data Plasma Sodium 136 - 145 mmoL/L Normal No Dec 03 [Moles/vo informati 2016 6:30 lume] in on in AM Serum or source Plasma data CBC W Auto Differential panel in Blood Observa Value Referen Units Interpr Notes Date tion ce etation Range Basophils 0 - 0.2 K/MM3 Normal No Dec 03 inform2016 6:30 [#/volume on in AM ] in source Blood by data Automated count Basophils 0.1 - 2.0 % Normal No Dec 03 informati 2016 6:30 leukocyte on in AM s in source Blood by data Automated count Eosinophi 0.0 - 0.4 K/mm3 Normal No Dec 03 ls informati 2016 6:30 [#/volume on in AM ] in source Blood by data Automated count Eosinophi 0.1 - % Normal No Dec 03 ls/100 12.0 informati 2016 6:30 leukocyte on in AM s in source Blood by data Automated count Granulocy 1.3 - 8.0 K/mm3 High No Dec 03 kelley informati 2016 6:30 [#/volume on in AM ] in source Blood by data Automated count Granulocy 37.0 - % Normal No Dec 03 kelley/100 80.0 informati 2016 6:30 leukocyte on in AM s in source Blood by data Automated count Hematocri 42.0 - % Low No Dec 03 t [Volume 52.0 informati 2016 6:30 on in AM Fraction] source of Blood data Hemoglobi 14.1 - g/dL Low No Dec 03 n 18.0 informati 2016 6:30 [Mass/vol on in AM ume] in source Blood data Lymphocyt 0.7 - 4.5 K/mm3 Normal No Dec 03 es informati 2016 6:30 [#/volume on in AM ] in source Unspecifi data ed specimen by Automated count Lymphocyt 10 - 50 % Low No Dec 03 es informati 2016 6:30 [#/volume on in AM ] in source Unspecifi data ed specimen by Automated count Erythrocy 27 - 31.2 pg Low No Dec 03 te mean informati 2016 6:30 corpuscul on in AM ar source hemoglobi data n [Entitic mass] Erythrocy 31.8 - g/dl Low No Dec 03 te mean 35.4 informati 2017 6:30 corpuscul on in AM ar source hemoglobi data n concentra tion [Mass/vol ume] by Automated count Erythrocy 82.2 - fl Normal No Dec 03 te mean 97.8 informati 2016 6:30 corpuscul on in AM ar volume source [Entitic data volume] by Automated count Monocytes 0.1 - 1.0 K/mm3 High No Dec 03 informati 2016 6:30 [#/volume on in AM ] in source Blood by data Automated count Monocytes 1.7 - 9.3 % High No Dec 03 /100 informati 2017 6:30 leukocyte on in AM s in source Blood by data Automated count Platelet 7.4 - fl Normal No Dec 03 mean 10.4 informati 2017 6:30 volume on in AM [Entitic source volume] data in Blood by Automated count Platelets 142 - 424 K/mm3 Normal No Dec 03 informati 2016 6:30 [#/volume on in AM ] in source Blood data Erythrocy 4.6 - 6.2 M/mm3 Low No Dec 03 kelley informati 2017 6:30 [#/volume on in AM ] in source Amniotic data fluid Erythrocy 11.5 - % High No Dec 03 te 17.5 informati 2016 6:30 distribut on in AM ion width source [Entitic data volume] by Automated count Leukocyte 4.8 - K/MM3 High No Dec 03 s 10.8 informati 2016 6:30 [#/volume on in AM ] in source Blood data Vancomycin [Mass/volume] in Serum or Plasma --trough Observa Value Referen Units Interpr Notes Date tion ce etation Range COLLECTED BY NURSE FROM PICC Vancomyci 5.0 - mcg/mL High No Nov 24 n 10.0 informati 2016 1:30 [Mass/vol on in PM ume] in source Serum or data Plasma --trough CBC W Auto Differential panel in Blood Observa Value Referen Units Interpr Notes Date tion ce etation Range Basophils 0 - 0.2 K/MM3 Normal No Dec 01 informati 2016 4:20 [#/volume on in AM ] in source Blood by data Automated count Basophils 0.1 - 2.0 % Normal No Dec 01 /100 informati 2016 4:20 leukocyte on in AM s in source Blood by data Automated count Eosinophi 0.0 - 0.4 K/mm3 Normal No Dec 01 ls informati 2016 4:20 [#/volume on in AM ] in source Blood by data Automated count Eosinophi 0.1 - % Normal No Dec 01 ls/100 12.0 informati 2016 4:20 leukocyte on in AM s in source Blood by data Automated count Granulocy 1.3 - 8.0 K/mm3 High No Dec 01 kelley informati 2016 4:20 [#/volume on in AM ] in source Blood by data Automated count Granulocy 37.0 - % Normal No Dec 01 kelley/100 80.0 informati 2016 4:20 leukocyte on in AM s in source Blood by data Automated count Hematocri 42.0 - % Low No Dec 01 t [Volume 52.0 informati 2016 4:20 on in AM Fraction] source of Blood data Hemoglobi 14.1 - g/dL Low No Dec 01 n 18.0 informati 2016 4:20 [Mass/vol on in AM ume] in source Blood data Lymphocyt 0.7 - 4.5 K/mm3 Normal No Dec 01 es informati 2016 4:20 [#/volume on in AM ] in source Unspecifi data ed specimen by Automated count Lymphocyt 10 - 50 % Normal No Dec 01 es informati 2016 4:20 [#/volume on in AM ] in source Unspecifi data ed specimen by Automated count Erythrocy 27 - 31.2 pg Low No Dec 01 te mean informati 2016 4:20 corpuscul on in AM ar source hemoglobi data n [Entitic mass] Erythrocy 31.8 - g/dl Low No Dec 01 te mean 35.4 informati 2016 4:20 corpuscul on in AM ar source hemoglobi data n concentra tion [Mass/vol ume] by Automated count Erythrocy 82.2 - fl Normal No Dec 01 te mean 97.8 informati 2016 4:20 corpuscul on in AM ar volume source [Entitic data volume] by Automated count Monocytes 0.1 - 1.0 K/mm3 High No Dec 01 informati 2016 4:20 [#/volume on in AM ] in source Blood by data Automated count Monocytes 1.7 - 9.3 % High No Dec 01 / informati 2016 4:20 leukocyte on in AM s in source Blood by data Automated count Platelet 7.4 - fl Normal No Dec 01 mean 10.4 informati 2016 4:20 volume on in AM [Entitic source volume] data in Blood by Automated count Platelets 142 - 424 K/mm3 Normal No Dec 01 informati 2016 4:20 [#/volume on in AM ] in source Blood data Erythrocy 4.6 - 6.2 M/mm3 Low No Dec 01 kelley informati 2016 4:20 [#/volume on in AM ] in source Amniotic data fluid Erythrocy 11.5 - % Normal No Dec 01 te 17.5 informati 2016 4:20 distribut on in AM ion width source [Entitic data volume] by Automated count Leukocyte 4.8 - K/MM3 High No Dec 01 s 10.8 informati 2016 4:20 [#/volume on in AM ] in source Blood data Differential panel, method unspecified - Observa Value Referen Units Interpr Notes Date tion ce etation Range Anisocy 1+ No No No No Dec 01 tosis informa informa informa informa 2016 [Presen tion in tion in tion in tion in 4:20 AM ce] in source source source source Blood data data data data Neutrophi 0 - 8 % Normal No Dec 01 ls.band informati 2016 4:20 form/100 on in AM leukocyte source s in data Blood by Automated count Hypochr 2+ No No No No Dec 01 omia informa informa informa informa 2016 [Presen tion in tion in tion in tion in 4:20 AM ce] in source source source source Blood data data data data LYMPH 8 10 - 50 % Low No Dec 01 informa 2016 tion in 4:20 AM source data Monocytes 2 - 9 % Normal No Dec 01 informati 2016 4:20 leukocyte on in AM s in source Blood by data Automated count Platele NORMAL No No No No Dec 01 ts informa informa informa informa 2016 [Presen tion in tion in tion in tion in 4:20 AM ce] in source source source source Blood data data data data by Light microsc opy Poikilo SL. No No No No Dec 01 cytosis informa informa informa informa 2017 tion in tion in tion in tion in 4:20 AM [Presen source source source source ce] in data data data data Blood by Light microsc opy Polychr 1+ No No No No Dec 01 omasia informa informa informa informa 2016 [Presen tion in tion in tion in tion in 4:20 AM ce] in source source source source Blood data data data data by Light microsc opy Neutrophi 42 - 76 % High No Dec 01 ls informati 2016 4:20 [#/volume on in AM ] in source Blood by data Automated count Cells No #CELLS No No Dec 01 Counted informati informati informati 2016 4:20 Total [#] on in on in on in AM in Blood source source source data data data Comprehensive metabolic 2000 panel in Serum or Plasma Observa Value Referen Units Interpr Notes Date tion ce etation Range Albumin/G 1.1 - 1.8 No Low No Dec 01 lobulin informati informati 2016 4:20 [Mass on in on in AM ratio] in source source Serum or data data Plasma Albumin 3.4 - 5.0 gm/dL Low No Dec 01 [Mass/vol informati 2016 4:20 ume] in on in AM Serum or source Plasma data Alkaline 46 - 116 U/L High No Dec 01 phosphata informati 2017 4:20 se on in AM [Enzymati source c data activity/ volume] in Serum or Plasma Bilirubin 0.2 - 1.0 mg/dL Normal No Dec 01 .total informati 2016 4:20 [Mass/vol on in AM ume] in source Serum or data Plasma Urea 7 - 18 mg/dL High No Dec 01 nitrogen informati 2016 4:20 [Mass/vol on in AM ume] in source Serum or data Plasma Calcium 8.5 - mg/dL Low No Dec 01 [Mass/vol 10.1 informati 2017 4:20 ume] in on in AM Serum or source Plasma data Chloride 98 - 107 mmoL/L Normal No Dec 01 [Moles/vo informati 2017 4:20 lume] in on in AM Serum or source Plasma data Carbon 21.0 - mmoL/L Normal No Dec 01 dioxide, 32.0 informati 2016 4:20 total on in AM [Moles/vo source lume] in data Serum or Plasma Creatinin 0.70 - mg/dL Normal No Dec 01 e 1.30 informati 2016 4:20 [Mass/vol on in AM ume] in source Serum or data Plasma Creatinin 50 - 200 ML/MIN Normal No Dec 01 e renal informati 2016 4:20 clearance on in AM source predicted data by Cockcroft -Gault formula Estimated >60 ML/MIN No REFERENCE Dec 01 informati RANGE: 2017 4:20 glomerula on in >60 AM r source ML/MIN/1. filtratio data 73 SQUARE n rate METERSIf (GF this patient is -A merican, then multiply theresult by 1.210. Globulin 1.3 - 3.2 gm/dL High No Dec 01 [Mass/vol informati 2016 4:20 ume] in on in AM Serum source data Glucose 74 - 106 mg/dL Normal No Dec 01 [Mass/vol informati 2016 4:20 ume] in on in AM Serum or source Plasma data Potassium 3.5 - 5.1 mmoL/L Normal No Dec 01 informati 2016 4:20 [Moles/vo on in AM lume] in source Serum or data Plasma Sodium 136 - 145 mmoL/L Normal No Dec 01 [Moles/vo informati 2016 4:20 lume] in on in AM Serum or source Plasma data Aspartate 15 - 37 U/L Normal No Dec 01 informati 2016 4:20 aminotran on in AM sferase source [Enzymati data c activity/ volume] in Serum or Plasma Alanine 12 - 78 U/L Normal No Dec 01 aminotran informati 2016 4:20 sferase on in AM [Enzymati source c data activity/ volume] in Serum or Plasma Protein 6.4 - 8.2 gm/dL Low No Dec 01 [Mass/vol informati 2016 4:20 ume] in on in AM Serum or source Plasma data Basic metabolic panel in Blood Observa Value Referen Units Interpr Notes Date tion ce etation Range Urea 7 - 18 mg/dL High No Nov 30 nitrogen informati 2016 6:30 [Mass/vol on in AM ume] in source Serum or data Plasma Calcium 8.5 - mg/dL Normal No Nov 30 [Mass/vol 10.1 informati 2017 6:30 ume] in on in AM Serum or source Plasma data Chloride 98 - 107 mmoL/L High No Nov 30 [Moles/vo informati 2016 6:30 lume] in on in AM Serum or source Plasma data Carbon 21.0 - mmoL/L Normal No Nov 30 dioxide, 32.0 informati 2017 6:30 total on in AM [Moles/vo source lume] in data Serum or Plasma Creatinin 0.70 - mg/dL Normal No Nov 30 e 1.30 informati 2017 6:30 [Mass/vol on in AM ume] in source Serum or data Plasma Creatinin 50 - 200 ML/MIN Normal No Nov 30 e renal informati 2017 6:30 clearance on in AM source predicted data by Cockcroft -Gault formula Estimated >60 ML/MIN No REFERENCE Nov 30 informati RANGE: 2017 6:30 glomerula on in >60 AM r source ML/MIN/1. filtratio data 73 SQUARE n rate METERSIf (GF this patient is -A merican, then multiply theresult by 1.210. Glucose 74 - 106 mg/dL High No Nov 30 [Mass/vol informati 2016 6:30 ume] in on in AM Serum or source Plasma data Potassium 3.5 - 5.1 mmoL/L Normal No Nov 30 informati 2016 6:30 [Moles/vo on in AM lume] in source Serum or data Plasma Sodium 136 - 145 mmoL/L Normal No Nov 30 [Moles/vo informati 2016 6:30 lume] in on in AM Serum or source Plasma data Vancomycin [Mass/volume] in Serum or Plasma --trough Observa Value Referen Units Interpr Notes Date tion ce etation Range Vancomyci 5.0 - mcg/mL High CALLED TO Nov 30 n 10.0 L 2017 6:30 [Mass/vol FREEMAN AM ume] in [facility] Serum or 11/30/16 Plasma 0725 JS --trough CBC W Auto Differential panel in Blood Observa Value Referen Units Interpr Notes Date tion ce etation Range Basophils 0 - 0.2 K/MM3 Normal No Nov 30 informati 2016 6:30 [#/volume on in AM ] in source Blood by data Automated count Basophils 0.1 - 2.0 % Normal No Nov 30 informati 2017 6:30 leukocyte on in AM s in source Blood by data Automated count Eosinophi 0.0 - 0.4 K/mm3 Normal No Nov 30 ls informati 2016 6:30 [#/volume on in AM ] in source Blood by data Automated count Eosinophi 0.1 - % Normal No Nov 30 ls/100 12.0 informati 2017 6:30 leukocyte on in AM s in source Blood by data Automated count Granulocy 1.3 - 8.0 K/mm3 High No Nov 30 kelley informati 2016 6:30 [#/volume on in AM ] in source Blood by data Automated count Granulocy 37.0 - % Normal No Nov 30 kelley/100 80.0 informati 2017 6:30 leukocyte on in AM s in source Blood by data Automated count Hematocri 42.0 - % Low No Nov 30 t [Volume 52.0 informati 2016 6:30 on in AM Fraction] source of Blood data Hemoglobi 14.1 - g/dL Low No Nov 30 n 18.0 informati 2016 6:30 [Mass/vol on in AM ume] in source Blood data Lymphocyt 0.7 - 4.5 K/mm3 Normal No Nov 30 es informati 2017 6:30 [#/volume on in AM ] in source Unspecifi data ed specimen by Automated count Lymphocyt 10 - 50 % Low No Nov 30 es informati 2017 6:30 [#/volume on in AM ] in source Unspecifi data ed specimen by Automated count Erythrocy 27 - 31.2 pg Low No Nov 30 te mean informati 2017 6:30 corpuscul on in AM ar source hemoglobi data n [Entitic mass] Erythrocy 31.8 - g/dl Low No Nov 30 te mean 35.4 informati 2017 6:30 corpuscul on in AM ar source hemoglobi data n concentra tion [Mass/vol ume] by Automated count Erythrocy 82.2 - fl Normal No Nov 30 te mean 97.8 informati 2017 6:30 corpuscul on in AM ar volume source [Entitic data volume] by Automated count Monocytes 0.1 - 1.0 K/mm3 High No Nov 30 informati 2017 6:30 [#/volume on in AM ] in source Blood by data Automated count Monocytes 1.7 - 9.3 % High No Nov 30 /100 informati 2016 6:30 leukocyte on in AM s in source Blood by data Automated count Platelet 7.4 - fl Normal No Nov 30 mean 10.4 informati 2016 6:30 volume on in AM [Entitic source volume] data in Blood by Automated count Platelets 142 - 424 K/mm3 Normal No Nov 30 informati 2017 6:30 [#/volume on in AM ] in source Blood data Erythrocy 4.6 - 6.2 M/mm3 Low No Nov 30 kelley informati 2016 6:30 [#/volume on in AM ] in source Amniotic data fluid Erythrocy 11.5 - % Normal No Nov 30 te 17.5 informati 2017 6:30 distribut on in AM ion width source [Entitic data volume] by Automated count Leukocyte 4.8 - K/MM3 High No Nov 30 s 10.8 informati 2017 6:30 [#/volume on in AM ] in source Blood data CREATININE Observa Value Referen Units Interpr Notes Date tion ce etation Range Creatinin 0.70 - mg/dL High No Nov 29 e 1.30 informati 2016 9:15 [Mass/vol on in AM ume] in source Serum or data Plasma Creatinin 50 - 200 ML/MIN Normal No Nov 29 e renal informati 2016 9:15 clearance on in AM source predicted data by Cockcroft -Gault formula Estimated >60 ML/MIN No REFERENCE Nov 29 informati RANGE: 2017 9:15 glomerula on in >60 AM r source ML/MIN/1. filtratio data 73 SQUARE n rate METERSIf (GF this patient is -A merican, then multiply theresult by 1.210. Vancomycin [Mass/volume] in Serum or Plasma --trough Observa Value Referen Units Interpr Notes Date tion ce etation Range Vancomyci 5.0 - mcg/mL High RESULTS Nov 29 n 10.0 CALLED TO 2017 9:15 [Mass/vol AM ume] in PHARMACIS Serum or T: CHE Plasma 11/29/16 --trough [id number] Mondragon Bacteria identified in Sputum by Culture Observa Value Referen Units Interpr Notes Date tion ce etation Range Collected by nurse? Y Hold specimen in OE? N Bacteri LARGE No No No No Nov 29 a AMOUNT informa informa informa informa 2016 identif OF tion in tion in tion in tion in 2:35 AM ied in YEAST source source source source Sputum ISOLATE data data data data by D. Culture PLEASE CONTACT LAB IF Bacteri FURTHER No No No No Nov 29 a ID informa informa informa informa 2016 identif REQUIRE tion in tion in tion in tion in 2:35 AM ied in D. LAB source source source source Sputum WILL data data data data by HOLD Culture YEAST FOR 5 DAYS. Bacteri Yeast No No No No Nov 29 a informa informa informa informa 2017 identif tion in tion in tion in tion in 2:35 AM ied in source source source source Sputum data data data data by Culture Vancomycin [Mass/volume] in Serum or Plasma --trough Observa Value Referen Units Interpr Notes Date ti ce etation Range COMMENTS TO DOLL EYE SETTER: CALL PHARMACIST TEASEL GIG OPERATOR WITH LEVEL Vancomyci 5.0 - mcg/mL High No Nov 27 n 10.0 informati 2016 7:25 [Mass/vol on in PM ume] in source Serum or data Plasma --trough Albumin [Mass/volume] in Body fluid Observa Value Referen Units Interpr Notes Date ti ce etation Range COMMENTS TO DOLL EYE SETTER: ascites Albumin . g/dL No Nov 27 [Mass/vol informati 2016 ume] in on in 12:00 PM Body source fluid data __: Peritonea l : Pleural : Synovial :: :_ :___ ____:: : Transudat e : Exudate : :: :_ __: :___ ____:: Not Estab. : Not Estab. : Not Estab.: Not Estab. :: :_ __: :___ ____:The method performan ce specifica tions have not beenestab lished for this test in body fluid. The test resultsho uld be integrate d into the clinical context forinterp retation. The reference intervals and other method performan cespecifi cations have not been establish ed for this test. Thetest result should be integrate d into the clinical contextfo r interpret ation. Protein [Mass/volume] in Body fluid Observa Value Referen Units Interpr Notes Date tion ce etation Range COMMENTS TO DOLL EYE SETTER: ascites Protein . g/dL No Nov 27 [Mass/vol informati 2016 ume] in on in 12:00 PM Body source fluid data __: Peritonea l : Pleural : Synovial :: :_ :___ ____:: : Transudat e : Exudate : :: :_ __: :___ ____:: Not Estab. : <3 g/dL : >3 g/dL : <2.5 g/dL :: :_ __: :___ ____:The method performan ce specifica tions have not beenestab lished for this test in body fluid. The test resultsho uld be integrate d into the clinical context forinterp retation. The method performan ce specifica tions have not beenestab lished for this test in body fluid. The test resultsho uld be integrate d into the clinical context forinterp retation. Performed at: [facility] [id number] [place], [place] [id number] [place]: Salvador Martínez PhD, Phone: [phone] Glucose [Mass/volume] in Body fluid Observa Value Referen Units Interpr Notes Date tion ce etation Range COMMENTS TO DOLL EYE SETTER: ascites Glucose . mg/dL No Nov 27 [Mass/vol informati 2016 ume] in on in 12:00 PM Body source fluid data __: Peritonea l : Pleural : Synovial :: :_ :___ ____:: : Transudat e : Exudate : :: :_ __: :___ ____:: Not Estab. : Equal to simultane ously drawn plasma :: :_ ____:The method performan ce specifica tions have not beenestab lished for this test in body fluid. The test resultsho uld be integrate d into clinical context forinterp retation. The reference intervals and other method performan cespecifi cations have not been establish ed for this test. Thetest result should be integrate d into the clinical contextfo r interpret ation. Vancomycin [Mass/volume] in Serum or Plasma --trough Observa Value Referen Units Interpr Notes Date tion ce etation Range Vancomyci 5.0 - mcg/mL High RESULTS Nov 27 n 10.0 CALLED TO 2017 7:28 [Mass/vol AM ume] in PHARMACIS Serum or T: Plasma BRAYDEN --trough L. 7 0809 Gaby Polanco Comprehensive metabolic 2000 panel in Serum or Plasma Observa Value Referen Units Interpr Notes Date tion ce etation Range Albumin/G 1.1 - 1.8 No Low No Nov 18 lobulin informati informati 2017 6:04 [Mass on in on in AM ratio] in source source Serum or data data Plasma Albumin 3.4 - 5.0 gm/dL Low No Nov 18 [Mass/vol informati 2017 6:04 ume] in on in AM Serum or source Plasma data Alkaline 46 - 116 U/L High No Nov 18 phosphata informati 2017 6:04 se on in AM [Enzymati source c data activity/ volume] in Serum or Plasma Bilirubin 0.2 - 1.0 mg/dL High No Nov 18 .total informati 2017 6:04 [Mass/vol on in AM ume] in source Serum or data Plasma Urea 7 - 18 mg/dL High No Nov 18 nitrogen informati 2017 6:04 [Mass/vol on in AM ume] in source Serum or data Plasma Calcium 8.5 - mg/dL Low No Nov 18 [Mass/vol 10.1 informati 2017 6:04 ume] in on in AM Serum or source Plasma data Chloride 98 - 107 mmoL/L High No Nov 18 [Moles/vo informati 2017 6:04 lume] in on in AM Serum or source Plasma data Carbon 21.0 - mmoL/L Normal No Nov 18 dioxide, 32.0 informati 2017 6:04 total on in AM [Moles/vo source lume] in data Serum or Plasma Creatinin 0.70 - mg/dL Normal No Oct 18 e 1.30 informati 2017 6:04 [Mass/vol on in AM ume] in source Serum or data Plasma Creatinin 50 - 200 ML/MIN Normal No Nov 18 e renal informati 2017 6:04 clearance on in AM source predicted data by Cockcroft -Gault formula Estimated >60 ML/MIN No REFERENCE Oct 18 informati RANGE: 2017 6:04 glomerula on in >60 AM r source ML/MIN/1. filtratio data 73 SQUARE n rate METERSIf (GF this patient is -A merican, then multiply theresult by 1.210. Globulin 1.3 - 3.2 gm/dL High No Nov 26 [Mass/vol informati 2016 6:04 ume] in on in AM Serum source data Glucose 74 - 106 mg/dL Normal No Nov 26 [Mass/vol informati 2016 6:04 ume] in on in AM Serum or source Plasma data Potassium 3.5 - 5.1 mmoL/L Normal No Nov 262016 6:04 [Moles/vo on in AM lume] in source Serum or data Plasma Sodium 136 - 145 mmoL/L Normal No Nov 26 [Moles/vo informati 2016 6:04 lume] in on in AM Serum or source Plasma data Aspartate 15 - 37 U/L High No Nov 26 inform2016 6:04 aminotran on in AM sferase source [Enzymati data c activity/ volume] in Serum or Plasma Alanine 12 - 78 U/L Normal No Nov 26 aminotran informati 2016 6:04 sferase on in AM [Enzymati source c data activity/ volume] in Serum or Plasma Protein 6.4 - 8.2 gm/dL Normal No Nov 26 [Mass/vol informati 2016 6:04 ume] in on in AM Serum or source Plasma data CBC W Auto Differential panel in Blood Observa Value Referen Units Interpr Notes Date tion ce etation Range Basophils 0 - 0.2 K/MM3 Normal No Nov 262016 6:04 [#/volume on in AM ] in source Blood by data Automated count Basophils 0.1 - 2.0 % Normal No Nov 26 /100 informati 2017 6:04 leukocyte on in AM s in source Blood by data Automated count Eosinophi 0.0 - 0.4 K/mm3 Normal No Nov 26 ls informati 2016 6:04 [#/volume on in AM ] in source Blood by data Automated count Eosinophi 0.1 - % Normal No Nov 26 ls/100 12.0 informati 2016 6:04 leukocyte on in AM s in source Blood by data Automated count Granulocy 1.3 - 8.0 K/mm3 High No Nov 26 kelley informati 2017 6:04 [#/volume on in AM ] in source Blood by data Automated count Granulocy 37.0 - % High No Nov 18 kelley/100 80.0 informati 2017 6:04 leukocyte on in AM s in source Blood by data Automated count Hematocri 42.0 - % Low No Nov 18 t [Volume 52.0 informati 2017 6:04 on in AM Fraction] source of Blood data Hemoglobi 14.1 - g/dL Low No Nov 18 n 18.0 informati 2017 6:04 [Mass/vol on in AM ume] in source Blood data Lymphocyt 0.7 - 4.5 K/mm3 Normal No Nov 18 es informati 2017 6:04 [#/volume on in AM ] in source Unspecifi data ed specimen by Automated count Lymphocyt 10 - 50 % Normal No Nov 18 es informati 2017 6:04 [#/volume on in AM ] in source Unspecifi data ed specimen by Automated count Erythrocy 27 - 31.2 pg Low No Nov 18 te mean informati 2017 6:04 corpuscul on in AM ar source hemoglobi data n [Entitic mass] Erythrocy 31.8 - g/dl Low No Nov 18 te mean 35.4 informati 2017 6:04 corpuscul on in AM ar source hemoglobi data n concentra tion [Mass/vol ume] by Automated count Erythrocy 82.2 - fl Normal No Nov 18 te mean 97.8 informati 2017 6:04 corpuscul on in AM ar volume source [Entitic data volume] by Automated count Monocytes 0.1 - 1.0 K/mm3 Normal No Nov 18 informati 2017 6:04 [#/volume on in AM ] in source Blood by data Automated count Monocytes 1.7 - 9.3 % Normal No Oct 18 /100 informati 2017 6:04 leukocyte on in AM s in source Blood by data Automated count Platelet 7.4 - fl Normal No Nov 18 mean 10.4 informati 2017 6:04 volume on in AM [Entitic source volume] data in Blood by Automated count Platelets 142 - 424 K/mm3 No No Nov 18 informati informati 2017 6:04 [#/volume on in on in AM ] in source source Blood data data Erythrocy 4.6 - 6.2 M/mm3 Low No Nov 18 kelley informati 2017 6:04 [#/volume on in AM ] in source Amniotic data fluid Erythrocy 11.5 - % Normal No Oct 18 te 17.5 informati 2017 6:04 distribut on in AM ion width source [Entitic data volume] by Automated count Leukocyte 4.8 - K/MM3 Normal No Nov 26 s 10.8 informati 2016 6:04 [#/volume on in AM ] in source Blood data Alk Phos Isoenzyme Observa Value Referen Units Interpr Notes Date tion ce etation Range Alkaline 12 - 68 % No No Nov 24 phosphata informati informati 2017 1:30 se.bone/A on in on in PM lkaline source source phosphata data data se.total in Serum or Plasma Alkaline 0 - 18 % No Performed Nov 24 phosphata informati at: CB 2017 1:30 se.intest on in - [facility] PM inal/Radha source line data [id number] phosphata [address], in Serum [place], or Plasma [place] [id number] Spe[place] Fisher: Salvador Martínez PhD, Phone: [phone] Alkaline 13 - 88 % No No Nov 24 phosphata informati informati 2017 1:30 se.liver/ on in on in PM Alkaline source source phosphata data data se.total in Serum or Plasma Alkaline 39 - 117 IU/L High Performed Nov 24 phosphata at: CB 2016 1:30 se - [facility] PM [Enzymati c [id number] activity/ [address] volume] Road, in Serum [place], or Plasma [place] [id number] [place] Fisher: Salvador Martínez PhD, Phone: [phone] INR in Blood by Coagulation assay Observa Value Referen Units Interpr Notes Date tion ce etation Range COMMENTS TO DOLL EYE SETTER: COLLECTED BY PHYSICIAN IS PATIENT ON ANTICOAGULANTS? N INR in 0.9 - 1.1 No High INDICATIO Nov 24 Blood by informati N 2017 1:30 Coagulati on in PM on assay source INR data RANGETHER APY FOR DVT, PE, ATRIAL FIB; 2.0 - 3.0PROPHY LAXIS FOR VTETHERAP Y FOR MECHANICA L HEART 2.5 - 3.5VALVE; PREVENTIO N OF SYSTEMICE MBOLISM SECONDARY TO AMI Prothromb 9.4 - SECONDS High No Nov 24 in time 11.8 informati 2017 1:30 (PT) in on in PM Platelet source poor data plasma by Coagulati on assay Ammonia [Mass/volume] in Unspecified specimen Observa Value Referen Units Interpr Notes Date tion ce etation Range COMMENTS TO DOLL EYE SETTER: COLLECTED BY PHYSICIAN Ammonia 19 - 54 umoL/L Low No Nov 24 [Mass/vol informati 2017 1:30 ume] in on in PM Unspecifi source ed data specimen Gamma glutamyl transferase [Enzymatic activity/volume] in Serum or Plasma Observa Value Referen Units Interpr Notes Date tion ce etation Range Gamma 15 - 85 U/L High No Nov 24 glutamyl informati 2017 1:30 transfera on in PM se source [Enzymati data c activity/ volume] in Serum or Plasma Comprehensive metabolic 2000 panel in Serum or Plasma Observa Value Referen Units Interpr Notes Date tion ce etation Range Albumin/G 1.1 - 1.8 No Low No Nov 24 lobulin informati informati 2017 6:20 [Mass on in on in AM ratio] in source source Serum or data data Plasma Albumin 3.4 - 5.0 gm/dL Low No Nov 24 [Mass/vol informati 2016 6:20 ume] in on in AM Serum or source Plasma data Alkaline 46 - 116 U/L High No Nov 24 phosphata informati 2017 6:20 se on in AM [Enzymati source c data activity/ volume] in Serum or Plasma Bilirubin 0.2 - 1.0 mg/dL High No Nov 24 .total informati 2017 6:20 [Mass/vol on in AM ume] in source Serum or data Plasma Urea 7 - 18 mg/dL High No Nov 24 nitrogen informati 2017 6:20 [Mass/vol on in AM ume] in source Serum or data Plasma Calcium 8.5 - mg/dL Low No Nov 24 [Mass/vol 10.1 informati 2017 6:20 ume] in on in AM Serum or source Plasma data Chloride 98 - 107 mmoL/L Normal No Nov 24 [Moles/vo informati 2017 6:20 lume] in on in AM Serum or source Plasma data Carbon 21.0 - mmoL/L Normal No Nov 16 dioxide, 32.0 informati 2017 6:20 total on in AM [Moles/vo source lume] in data Serum or Plasma Creatinin 0.70 - mg/dL Normal No Nov 16 e 1.30 informati 2017 6:20 [Mass/vol on in AM ume] in source Serum or data Plasma Creatinin 50 - 200 ML/MIN Normal No Oct 16 e renal informati 2016 6:20 clearance on in AM source predicted data by Cockcroft -Gault formula Estimated >60 ML/MIN No REFERENCE Nov 24 informati RANGE: 2017 6:20 glomerula on in >60 AM r source ML/MIN/1. filtratio data 73 SQUARE n rate METERSIf (GF this patient is -A merican, then multiply theresult by 1.210. Globulin 1.3 - 3.2 gm/dL High No Nov 24 [Mass/vol informati 2016 6:20 ume] in on in AM Serum source data Glucose 74 - 106 mg/dL High No Nov 16 [Mass/vol informati 2016 6:20 ume] in on in AM Serum or source Plasma data Potassium 3.5 - 5.1 mmoL/L Normal No Nov 24 informati 2016 6:20 [Moles/vo on in AM lume] in source Serum or data Plasma Sodium 136 - 145 mmoL/L Normal No Nov 24 [Moles/vo informati 2016 6:20 lume] in on in AM Serum or source Plasma data Aspartate 15 - 37 U/L High No Nov 24 informati 2016 6:20 aminotran on in AM sferase source [Enzymati data c activity/ volume] in Serum or Plasma Alanine 12 - 78 U/L No No Nov 24 aminotran informati informati 2016 6:20 sferase on in on in AM [Enzymati source source c data data activity/ volume] in Serum or Plasma Protein 6.4 - 8.2 gm/dL Normal No Nov 24 [Mass/vol informati 2016 6:20 ume] in on in AM Serum or source Plasma data CBC W Auto Differential panel in Blood Observa Value Referen Units Interpr Notes Date tion ce etation Range Basophils 0 - 0.2 K/MM3 Normal No Nov 24 informati 2016 6:20 [#/volume on in AM ] in source Blood by data Automated count Basophils 0.1 - 2.0 % Normal No Nov 24 informati 2016 6:20 leukocyte on in AM s in source Blood by data Automated count Eosinophi 0.0 - 0.4 K/mm3 Normal No Nov 24 ls informati 2016 6:20 [#/volume on in AM ] in source Blood by data Automated count Eosinophi 0.1 - % Normal No Nov 24 ls/100 12.0 informati 2017 6:20 leukocyte on in AM s in source Blood by data Automated count Granulocy 1.3 - 8.0 K/mm3 Normal No Nov 16 kelley informati 2017 6:20 [#/volume on in AM ] in source Blood by data Automated count Granulocy 37.0 - % Normal No Nov 16 kelley/100 80.0 informati 2017 6:20 leukocyte on in AM s in source Blood by data Automated count Hematocri 42.0 - % Low No Nov 24 t [Volume 52.0 informati 2017 6:20 on in AM Fraction] source of Blood data Hemoglobi 14.1 - g/dL Low No Nov 24 n 18.0 informati 2017 6:20 [Mass/vol on in AM ume] in source Blood data Lymphocyt 0.7 - 4.5 K/mm3 Normal No Nov 24 es informati 2017 6:20 [#/volume on in AM ] in source Unspecifi data ed specimen by Automated count Lymphocyt 10 - 50 % Normal No Nov 24 es informati 2016 6:20 [#/volume on in AM ] in source Unspecifi data ed specimen by Automated count Erythrocy 27 - 31.2 pg Low No Nov 16 te mean informati 2017 6:20 corpuscul on in AM ar source hemoglobi data n [Entitic mass] Erythrocy 31.8 - g/dl Low No Nov 24 te mean 35.4 informati 2017 6:20 corpuscul on in AM ar source hemoglobi data n concentra tion [Mass/vol ume] by Automated count Erythrocy 82.2 - fl Normal No Nov 24 te mean 97.8 informati 2017 6:20 corpuscul on in AM ar volume source [Entitic data volume] by Automated count Monocytes 0.1 - 1.0 K/mm3 High No Nov 16 informati 2017 6:20 [#/volume on in AM ] in source Blood by data Automated count Monocytes 1.7 - 9.3 % High No Nov 16 /100 informati 2017 6:20 leukocyte on in AM s in source Blood by data Automated count Platelet 7.4 - fl Normal No Nov 16 mean 10.4 informati 2017 6:20 volume on in AM [Entitic source volume] data in Blood by Automated count Platelets 142 - 424 K/mm3 No No Nov 16 informati informati 2017 6:20 [#/volume on in on in AM ] in source source Blood data data Erythrocy 4.6 - 6.2 M/mm3 Low No Nov 16 kelley informati 2016 6:20 [#/volume on in AM ] in source Amniotic data fluid Erythrocy 11.5 - % Normal No Nov 16 te 17.5 informati 2016 6:20 distribut on in AM ion width source [Entitic data volume] by Automated count Leukocyte 4.8 - K/MM3 Normal No Nov 16 s 10.8 informati 2016 6:20 [#/volume on in AM ] in source Blood data CBC W Auto Differential panel in Blood Observa Value Referen Units Interpr Notes Date tion ce etation Range Basophils 0 - 0.2 K/MM3 Normal No Nov 14 informati 2016 5:50 [#/volume on in AM ] in source Blood by data Automated count Basophils 0.1 - 2.0 % Normal No Nov 14 /100 informati 2016 5:50 leukocyte on in AM s in source Blood by data Automated count Eosinophi 0.0 - 0.4 K/mm3 Normal No Nov 14 ls informati 2016 5:50 [#/volume on in AM ] in source Blood by data Automated count Eosinophi 0.1 - % Normal No Nov 22 ls/100 12.0 informati 2016 5:50 leukocyte on in AM s in source Blood by data Automated count Granulocy 1.3 - 8.0 K/mm3 High No Nov 14 kelley informati 2016 5:50 [#/volume on in AM ] in source Blood by data Automated count Granulocy 37.0 - % High No Nov 14 kelley/100 80.0 informati 2016 5:50 leukocyte on in AM s in source Blood by data Automated count Hematocri 42.0 - % Low No Nov 14 t [Volume 52.0 informati 2016 5:50 on in AM Fraction] source of Blood data Hemoglobi 14.1 - g/dL Low No Nov 14 n 18.0 informati 2016 5:50 [Mass/vol on in AM ume] in source Blood data Lymphocyt 0.7 - 4.5 K/mm3 Normal No Nov 14 es informati 2016 5:50 [#/volume on in AM ] in source Unspecifi data ed specimen by Automated count Lymphocyt 10 - 50 % Low No Nov 14 es informati 2016 5:50 [#/volume on in AM ] in source Unspecifi data ed specimen by Automated count Erythrocy 27 - 31.2 pg Low No Oct 14 te mean informati 2016 5:50 corpuscul on in AM ar source hemoglobi data n [Entitic mass] Erythrocy 31.8 - g/dl Low No Oct 14 te mean 35.4 informati 2016 5:50 corpuscul on in AM ar source hemoglobi data n concentra tion [Mass/vol ume] by Automated count Erythrocy 82.2 - fl Normal No Nov 14 te mean 97.8 informati 2016 5:50 corpuscul on in AM ar volume source [Entitic data volume] by Automated count Monocytes 0.1 - 1.0 K/mm3 Normal No Oct 14 informati 2016 5:50 [#/volume on in AM ] in source Blood by data Automated count Monocytes 1.7 - 9.3 % Normal No Oct 14 /100 informati 2016 5:50 leukocyte on in AM s in source Blood by data Automated count Platelet 7.4 - fl Normal No Nov 14 mean 10.4 informati 2016 5:50 volume on in AM [Entitic source volume] data in Blood by Automated count Platelets 142 - 424 K/mm3 No No Nov 14 informati informati 2016 5:50 [#/volume on in on in AM ] in source source Blood data data Erythrocy 4.6 - 6.2 M/mm3 Low No Nov 14 kelley informati 2017 5:50 [#/volume on in AM ] in source Amniotic data fluid Erythrocy 11.5 - % Normal No Nov 14 te 17.5 informati 2016 5:50 distribut on in AM ion width source [Entitic data volume] by Automated count Leukocyte 4.8 - K/MM3 High No Nov 14 s 10.8 informati 2016 5:50 [#/volume on in AM ] in source Blood data Comprehensive metabolic 2000 panel in Serum or Plasma Observa Value Referen Units Interpr Notes Date tion ce etation Range Albumin/G 1.1 - 1.8 No Low No Nov 14 lobulin informati informati 2016 5:50 [Mass on in on in AM ratio] in source source Serum or data data Plasma Albumin 3.4 - 5.0 gm/dL Low No Nov 14 [Mass/vol informati 2016 5:50 ume] in on in AM Serum or source Plasma data Alkaline 46 - 116 U/L High No Nov 14 phosphata informati 2017 5:50 se on in AM [Enzymati source c data activity/ volume] in Serum or Plasma Bilirubin 0.2 - 1.0 mg/dL Normal No Oct 14 .total informati 2016 5:50 [Mass/vol on in AM ume] in source Serum or data Plasma Urea 7 - 18 mg/dL High No Oct 14 nitrogen informati 2016 5:50 [Mass/vol on in AM ume] in source Serum or data Plasma Calcium 8.5 - mg/dL Low No Oct 14 [Mass/vol 10.1 informati 2016 5:50 ume] in on in AM Serum or source Plasma data Chloride 98 - 107 mmoL/L Normal No Oct 14 [Moles/vo informati 2016 5:50 lume] in on in AM Serum or source Plasma data Carbon 21.0 - mmoL/L Normal No Oct 14 dioxide, 32.0 informati 2016 5:50 total on in AM [Moles/vo source lume] in data Serum or Plasma Creatinin 0.70 - mg/dL Normal No Oct 14 e 1.30 informati 2016 5:50 [Mass/vol on in AM ume] in source Serum or data Plasma Creatinin 50 - 200 ML/MIN Normal No Nov 14 e renal informati 2016 5:50 clearance on in AM source predicted data by Cockcroft -Gault formula Estimated >60 ML/MIN No REFERENCE Oct 14 informati RANGE: 2017 5:50 glomerula on in >60 AM r source ML/MIN/1. filtratio data 73 SQUARE n rate METERSIf (GF this patient is -A merican, then multiply theresult by 1.210. Globulin 1.3 - 3.2 gm/dL High No Oct 14 [Mass/vol informati 2016 5:50 ume] in on in AM Serum source data Glucose 74 - 106 mg/dL High No Nov 14 [Mass/vol informati 2016 5:50 ume] in on in AM Serum or source Plasma data Potassium 3.5 - 5.1 mmoL/L Normal No Oct 14 informati 2016 5:50 [Moles/vo on in AM lume] in source Serum or data Plasma Sodium 136 - 145 mmoL/L Normal No Oct 14 [Moles/vo informati 2017 5:50 lume] in on in AM Serum or source Plasma data Aspartate 15 - 37 U/L No No Oct 14 informati informati 2016 5:50 aminotran on in on in AM sferase source source [Enzymati data data c activity/ volume] in Serum or Plasma Alanine 12 - 78 U/L No No Nov 22 aminotran informati informati 2016 5:50 sferase on in on in AM [Enzymati source source c data data activity/ volume] in Serum or Plasma Protein 6.4 - 8.2 gm/dL Low No Nov 22 [Mass/vol informati 2016 5:50 ume] in on in AM Serum or source Plasma data Lactate [Moles/volume] in Blood Observa Value Referen Units Interpr Notes Date tion ce etation Range Lactate 0.4 - 2.0 mmol/L Normal No Nov 21 [Moles/vo informati 2016 lume] in on in 11:40 AM Blood [...] Nov 21 nce of informa informa informa 2017 Urine [...] Nov 21 of YELLOW informa informa informa 2017 Urine tion in [...] AM Urine data data by Test strip Amylase [Enzymatic activity/volume] in Serum or Plasma Observa Value Referen Units Interpr Notes Date tion ce etation Range COMMENTS TO DOLL EYE SETTER: PLEASE USE BLOOD ALREADY DRAWN Amylase 25 - 115 U/L Normal No Nov 21 [Enzymati informati 2016 c on in 10:50 AM activity/ source volume] data in Serum or Plasma Lipase [Enzymatic activity/volume] in Serum or Plasma Observa Value Referen Units Interpr Notes Date tion ce etation Range COMMENTS TO DOLL EYE SETTER: PLEASE USE BLOOD ALREADY DRAWN Lipase 73 - 393 U/L Normal No Nov 21 [Enzymati 2016 c on in 10:50 AM activity/ source volume] data in Serum or Plasma CBC W Auto Differential panel in Blood Observa Value Referen Units Interpr Notes Date tion ce etation Range Basophils 0 - 0.2 K/MM3 Normal No Nov [id number] [#/volume on in 10:50 AM ] in source Blood by data Automated count Basophils 0.1 - 2.0 % Normal No Nov 21 /2016 leukocyte on in 10:50 AM s in source Blood by data Automated count Eosinophi 0.0 - 0.4 K/mm3 Normal No Nov 21 ls 2016 [#/volume on in 10:50 AM ] in source Blood by data Automated count Eosinophi 0.1 - % Normal No Nov 21 ls/100 12.0 2016 leukocyte on in 10:50 AM s in source Blood by data Automated count Granulocy 1.3 - 8.0 K/mm3 High No Nov 21 kelley 2016 [#/volume on in 10:50 AM ] in source Blood by data Automated count Granulocy 37.0 - % High No Nov 21 kelley/100 80.0 2016 leukocyte on in 10:50 AM s in source Blood by data Automated count Hematocri 42.0 - % Low No Nov 21 t [Volume 52.0 2016 on in 10:50 AM Fraction] source [...] - 9.3 % Normal No Nov 21 /2016 leukocyte on in 10:50 AM s in source Blood by data Automated count Platelet 7.4 - fl Low No Nov 21 mean 10.4 2016 volume on in 10:50 AM [Entitic source volume] data in Blood by Automated count Platelets 142 - 424 K/mm3 No No Nov 21ati 2016 [#/volume on in on in 10:50 [...] K/MM3 High No Nov 21 s 10.8 2016 [#/volume on in 10:50 AM ] [...] - 50 % Low No Nov 21 informa 2016 tion in 10:50 source AM data Monocytes 2 - 9 % Normal No Nov 13 /100 inform2016 leukocyte on in 10:50 AM s [...] 76 % High No Nov 21 ls informati 2016 [#/volume on in 10:50 AM ] in source Blood by data Automated count Cells No #CELLS No No Nov 21 Counted informati informati inform2016 Total [#] on in on in on in 10:50 AM in Blood source source source data data data Comprehensive metabolic 2000 panel in Serum or Plasma Observa Value Referen Units Interpr Notes Date tion ce etation Range Albumin/G 1.1 - 1.8 No Low No Nov 21 lobulin informati inform2016 [Mass on in on in 10:50 AM ratio] in source source Serum or data data Plasma Albumin 3.4 - 5.0 gm/dL Low No Nov 21 [Mass/vol inform2016 ume] in on in 10:50 AM Serum or source Plasma data Alkaline 46 - 116 U/L High No Nov 21 phosphata 2016 se on in 10:50 AM [Enzymati source c data activity/ volume] in Serum or Plasma Bilirubin 0.2 - 1.0 mg/dL High No Nov 21 .total inform2016 [Mass/vol on in 10:50 AM ume] in source Serum or data Plasma Urea 7 - 18 mg/dL High No Nov 21 nitrogen inform2016 [Mass/vol on in 10:50 AM ume] in source Serum or data Plasma Calcium 8.5 - mg/dL Normal No Nov 21 [Mass/vol 10.1 informati 2016 ume] in on in 10:50 AM Serum or source Plasma data Chloride 98 - 107 mmoL/L Normal No Nov 21 [Moles/vo inform2016 lume] in on in 10:50 AM Serum [...] ML/MIN Normal No Nov 21 e renal inform2016 clearance on in 10:50 AM source predicted data by Cockcroft -Gault formula Estimated >60 ML/MIN No REFERENCE Nov 21 informati RANGE: 2017 glomerula on in >60 [...] 3.5 - 5.1 mmoL/L Normal No Nov [id number] [Moles/vo on in 10:50 AM lume] in source Serum or data Plasma Sodium 136 - 145 mmoL/L Low No Nov 21 [Moles/vo informati 2016 lume] in on in 10:50 AM Serum or source Plasma data Aspartate 15 - 37 U/L High No Nov [id number] aminotran on in 10:50 AM sferase source [Enzymati data c activity/ volume] in Serum or Plasma Alanine 12 - 78 U/L Normal No Nov 21 aminotran 2016 sferase on in 10:50 AM [Enzymati source [...] Nov 07 in E informa informa informa 2017 [Presen tion in tion in tion in ce] in source source source Urine data data data by Test strip Erythro TRACE-I NEG No No No Nov 07 cytes NTACT informa informa informa 2017 [Presen tion in [...] No No Nov 07 casts informa informa 2017 [Presen tion in tion [...] No No Nov 07 [Mass/vol informati informati 2017 ume] in on in on in Urine by source source Automated data data test strip Erythro OCC 0 rbc/hpf No No Nov 07 cytes informa informa 2017 [Presen tion in tion [...] Nitrite NEGATIV NEG No No No Sep 29 E informa informa informa 2017 [Presen tion in tion in tion in ce] in source source source Urine data data data by Test strip pH of 5.0 - 8.5 No Normal No Sep 29 Urine informati informati 2017 on in on [...] Urobili 0.2 NEG E.U./dL No No Sep 29 nogen informa informa 2017 [Presen tion in [...] No Sep 4 a informa informa informa 2017 [Presen tion in [...] No No Sep 4 casts informa informa 2017 [Presen tion in tion [...] No Sep 4 [Mass/vol informati informati informati 2016 5:15 ume] in on in on in on in AM Urine by source source source Test data data data strip Ketones NEGATIV NEG mg/dL No No Sep 4 E informa informa 2016 [Presen tion in [...] No No Sep 4 [Mass/vol informati informati 2016 5:15 ume] in on in on in AM Urine by source source Automated data data test strip Specific 1.005 - No Normal No Sep 4 gravity 1.030 informati informati 2016 5:15 of Urine on in on in AM source source data data Urobili 0.2 NEG E.U./dL No No Sep 4 nogen informa informa 2017 [Presen tion in tion in 5:15 AM ce] in source source Urine data data by Test strip
--- OUTSIDE RECORDS SUMMARY | 2016-12-13 23:27 | External Medical Summary Rpt ---
Author Author ELIGIO Cee, [employer] Address Unknown Phone Unavailable [...] context forinterp retation. Performed at: - [facility] [id number] [place], [place] [id number] Sap Bw Architect: Salvador Martínez PhD, Phone: [phone] Glucose [Mass/volume] in Body fluid Observa [...] 6:30 [Mass/vol FREEMAN AM ume] in [facility] Serum or 11/30/16 Plasma 0725 JS --trough [...] Date ti ce etation Range COMMENTS TO ENVIRONMENTAL PROGRAMS MANAGER: CALL PHARMACIST PUBLIC DEFENDER WITH LEVEL Vancomyci 5.0 - mcg/mL High No Nov 27 n 10.0 informati 2016 7:25 [Mass/vol on in PM ume] in source Serum or data Plasma --trough Albumin [Mass/volume] in Body fluid Observa Value Referen Units Interpr Notes Date ti ce etation Range COMMENTS TO ENVIRONMENTAL PROGRAMS MANAGER: ascites Albumin . g/dL No Nov 27 [...] Date tion ce etation Range COMMENTS TO ENVIRONMENTAL PROGRAMS MANAGER: ascites Protein . g/dL No Nov 27 [...] the clinical context forinterp retation. Performed at: [place] [id number] [address] [place], [place] [id number] Sap Bw Architect: Salvador Martínez PhD, Phone: [phone] Glucose [Mass/volume] in Body fluid Observa Value Referen Units Interpr Notes Date tion ce etation Range COMMENTS TO ENVIRONMENTAL PROGRAMS MANAGER: ascites Glucose . mg/dL No Nov 27 [...] - [facility] PM inal/Radha source line data [id number] phosphata [address], in Serum Kh[place], or [place] [id number] Sap Bw Architect: Salvador Martínez PhD, Phone: [phone] Alkaline 13 - 88 % No No Nov 24 phosphata informati informati 2017 1:30 se.liver/ on in on in PM Alkaline source source phosphata data data se.total in Serum or Plasma Alkaline 39 - 117 IU/L High Performed Nov 24 phosphata at: CB 2016 1:30 se - [facility] PM [Enzymati c [id number] activity/ [address]] [address], in Serum Khai, or [place] [id number] Sap Bw Architect: Salvador Martínez PhD, Phone: [phone] INR in Blood by Coagulation assay Observa Value Referen Units Interpr Notes Date tion ce etation Range COMMENTS TO ENVIRONMENTAL PROGRAMS MANAGER: COLLECTED BY PHYSICIAN IS PATIENT ON ANTICOAGULANTS? [...] Date tion ce etation Range COMMENTS TO ENVIRONMENTAL PROGRAMS MANAGER: COLLECTED BY PHYSICIAN Ammonia 19 - 54 [...] Date tion ce etation Range COMMENTS TO ENVIRONMENTAL PROGRAMS MANAGER: PLEASE USE BLOOD ALREADY DRAWN Amylase 25 - 115 U/L Normal No Nov 21 [Enzymati informati 2016 c on in 10:50 AM activity/ source volume] data in Serum or Plasma Lipase [Enzymatic activity/volume] in Serum or Plasma Observa Value Referen Units Interpr Notes Date tion ce etation Range COMMENTS TO ENVIRONMENTAL PROGRAMS MANAGER: PLEASE USE BLOOD ALREADY DRAWN Lipase 73 [...]
[2016-12-13 23:55] LABS: LYMPH # 1.2 K/mm3 (0.7-4.5); LYMPH % 12.1 % (10-50)
[2016-12-13 23:58] LABS: HEMOGLOBIN 10.5 g/dL (14.1-18.0)
--- NOTE | 2016-12-14 00:39 | Emergency Room Report ---
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 N Clinical Suspician of Infection? Y Mental Status: 2 - Mildly Altered Sepsis Risk:Severe Sepsis Risk Have you (or family members/close friends) recently traveled outside the [place]? N If Yes, where/when: Have you had exposure to infectious disease within the past month? N TB? Other? Specify: Source patient, RN notes reviewed, family, EMS, detention records, old records Exam Limitations clinical condition Comment pt sent from [facility] for eval of increased sob and chest pain- no fever or hemoptysis Cardiac Chest Pain Chest pain indicative of cardiac No Timing/Duration this evening Severity moderate ALLERGIES Coded Allergies: No Known Allergies (07/18/15) Home Medications Active Scripts Ferrous Sulfate (Ferrous Sulfate 325MG) 325 MG PO BID #30 TAB Ref 4 Prov: 09/04/15 ASPIRIN (Aspirin) 81 MG PO DAILY #30 TABLET Ref 2 Prov: 09/04/15 Furosemide (Lasix 40MG) 40 MG PO DAILY #30 TAB Ref 3 Prov: 12/04/16 NYSTATIN (Nystatin Topical Powder 30GM) 0 GM TP QID #1 POW Ref 2 Prov: 12/04/16 Famotidine 20 MG PO DAILY #30 TAB Ref 2 Prov: 12/04/16 Spironolactone (Aldactone 100MG) 100 MG PO DAILY #30 TAB Ref 2 Prov: 12/04/16 Diltiazem Hcl (Cardizem Generic 60MG Tab) 60 MG OR TID #90 TAB Ref 2 Prov: 12/04/16 Potassium Chloride (Klor-Con M20) 40 MEQ PO BID #60 TAB Ref 2 Prov: 12/04/16 PIPERACILLIN SODIUM/TAZOBACTAM (Zosyn 3.375 Gram Vial) 1 PDS IV Q6H6 2 Days Prov: 12/04/16 Reported Medications Clopidogrel Bisulfate (Plavix) 75 MG PO DAILY #30 TAB Ref 2 Cyanocobalamin (Vitamin B-12) (B-12) 500 MCG PO DAILY Famotidine (Pepcid 20MG) 20 MG PO DAILY Metoprolol Tartrate 25 MG PO BID Acetaminophen (Acetaminophen Extra Strength) 1,000 MG PO Q6HP PRN PAIN CHOLECALCIFEROL (VITAMIN D3) (Vitamin D) 1 TAB PO DAILY Risperidone (Risperdal 0.5 Mg Tablet) 0.5 MG PO BID Lorazepam (Ativan) 0.5 MG PO QID PRN ANXIETY History Medical History General CAD? No Angina: Yes [place]: No Hypertension? Yes Hyperlipidemia? Yes CHF? Yes DVT? No PE? No COPD? No Asthma? No Anemia? Yes GERD? Yes Hernia? No Thyroid Problems? Yes Hypothyroidism? No CVA? No Seizures? No Diabetes? No Renal Insuffiency? No End Stage Renal Disease? No UTI? No Stones? No GB Disease: No Nephritic Syndrome? No Asplenia? No Hepatitis? No Sickle Cell Disease? No Arthritis? No Cataracts? Yes Glaucoma? No MRSA? No TB? No Anxiety? No Depression? No Cancer? No More? Yes Additional hx: 1. SHARKO FOOT 2. AFIB 3. TIA 4. MENTAL RETARDATION Immunization Hx DT/Tetanus > 10 Years Ago Flu 2016-17FSN Pneumonia Received In Past Surgical Hx Previous Surgery?Y RIGHT KNEE APPY DULCE CATARACTS CARDIAC CATH WITH STENT Family History Family Hx Diabetes No CAD No Hypertension Yes Hyperlipidemia No Cancer No TB No Social History Smoking Hx Smoker: Never Smoker Tobacco: No Type Cigarettes Packs/day N/A Alcohol Alcohol: No Drugs none Review of Systems All Other Systems Reviewed and Negative Constitutional denies fever Eyes denies drainage ENT denies: ear discharge, epistaxis, throat pain. Respiratory see HPI, cough, shortness of breath Cardiovascular see HPI, chest pain, denies palpitations, denies syncope Gastrointestinal denies abdominal pain, denies diarrhea, denies vomiting Genitourinary denies: dysuria, frequency, hesitancy, hematuria. Musculoskeletal denies back pain, denies joint pain, denies neck pain Skin denies rash Psychiatric/Neurological denies headache, denies seizure Physical Exam Vital Signs Vital Signs Date Time Temp Pulse Resp B/P Pulse O2 O2 Flow FiO2 Ox Delivery Rate 12/14 0131 97.5 64 22 95/74 95 12/14 0014 97.5 72 24 142/94 94 12/13 2256 99.2 144 40 180/109 94 3 - WBC >12,000 or <4,000 or 10% bands? 2 or more SIRS Criteria Met? B/P:/ MAP:132 Creatinine >2.0? UA output<0.5ml/kg/hr for 2 hrs? Platelet count >100,000? Lactate >2.0mmol/1? INR >1.2 or PTT > than 60 sec? Evidence of Organ Dysfunction? Provider documented clinical suspician of infection? Y Sepsis Criteria Count: 3 Sepsis Risk: Severe Sepsis Risk General Appearance no apparent distress Eye Exam - bilateral eye PERRL, bilateral eye EOMI Ear, Nose, Throat no focal changes Neck non-tender Respiratory Status No: respiratory distress. Lung Sounds right: decreased breath sounds. Cardiovascular regular rate/rhythm, systolic murmur Peripheral Pulses Pulses normal Yes Gastrointestinal soft, no organomegaly, no pulsatile mass, no guarding, no rebound Extremities no calf tenderness, pedal edema Strength 3 Lower Ext (L), 3 Lower Ext (R), 4 Upper Ext (L), 4 Upper Ext (R) Neurologic no focal changes Reflexes Reflexes normal No Mental status normal mood/affect Skin intact Medical Decision Making LABS/Meds/Orders Pt receiving controlled substance in ED? No Results/Orders Laboratory Tests 12/13/162334: Lactic Acid 1.5 12/13/162334: Sodium 134 L, Potassium 5.9 H, Chloride 102, Carbon Dioxide 27, BUN 34 H, Creatinine 1.5 H, Estimated Creat Clear 73, Estimated GFR (MDRD) 46, Glucose 119 H, Calcium 8.7, Total Bilirubin 0.6, AST 47 H, ALT 37, Alkaline Phosphatase 530 H, B-Natriuretic Peptide 402 H, Total Protein 7.4, Albumin 1.4 L, Globulin 6.0 H, Albumin/Globulin Ratio 0.2 L, WBC 10.3, RBC 4.12 L, Hgb 10.5 L, Hct 35.8 L, MCV 86.8, RDW 18.9 H, Plt Count 311, MPV 7.1 L, Gran % 73.6, Gran # 7.6, Lymphocytes % 12.1, Monocytes % 12.1 H, Eosinophils % 1.3, Basophils % 0.9, Lymphocytes # 1.2, Monocytes # 1.3 H, Eosinophils # 0.1, Basophils # 0.1, PUBS MCHC 29.3 L, MCH 25.4 L Orders Procedure Date/time Status Decision to admit 12/14 140 Active ELECTROCARDIOGRAM REQUEST 12/13 2342 Active CHEST-PORTABLE 12/13 2342 Active CULTURE, BLOOD 12/13 2342 Active LACTIC ACID 12/13 2342 Complete CBC WITH AUTO DIFF 12/13 2342 Complete CHEM 12 PROFILE 12/13 2342 Complete BRAIN NATRIURETIC PEPTIDE 12/13 2342 Complete CM/EKG 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 ST/Twave chgs XRAY/CT/US XRAY/CT/US XRAY chest XR interpretation by reviewed by me Xray Results abnormal (effusion) Departure Departure Time of Disposition 0109 Disposition Still a Patient Clinical Impression Primary Impression: Pleural effusion Secondary Impressions: A-fib Qualifiers: Atrial fibrillation type: chronic Qualified Code: I48.2 - Chronic atrial fibrillation Anemia Qualifiers: Anemia type: unspecified type Qualified Code: D64.9 - Anemia, unspecified Cirrhosis Qualifiers: Hepatic cirrhosis type: unspecified hepatic cirrhosis Ascites presence: with ascites Qualified Code: K74.60 - Unspecified cirrhosis of liver Hyperkalemia Renal insufficiency Condition STABLE Referrals Rodrigue LLOYD,Harinder Agrawal (Family) discussed with dr katty BRAND Critical Care Critical Care No at 0201
--- OUTSIDE RECORDS SUMMARY | 2016-12-14 01:00 | External Medical Summary Rpt | CCD ---
Demographics Preferred Language Fijian Marital Status Unknown Restorationist Affiliation Unknown Race Unknown Ethnic Group Unknown Author Author , AURELIA DEL VALLE Address Unknown Phone Immunization Unable to retrieve immunization data due to connection failure with Immunization Registry. Please try again later.
--- OUTSIDE RECORDS SUMMARY | 2016-12-14 01:00 | External Medical Summary Rpt | CCD ---
Demographics Preferred Language Guyanese Marital Status Unknown Presybeterian Affiliation Unknown Race Unknown Ethnic Group Unknown Author Author , AURELIA DEL VALLE Address Unknown Phone Immunization Unable to retrieve immunization data due to connection failure with Immunization Registry. Please try again later.
--- OUTSIDE RECORDS SUMMARY | 2016-12-14 01:03 | External Medical Summary Rpt ---
Author Author ELIG[employer] Coleman, [employer] Organization [employer] Address Unknown Phone Unavailable Results Lactate [Moles/volume] in Blood Observa Value Referen Units Interpr Notes Date tion ce etation Range Lactate 0.4 - 2.0 mmol/L Normal No Dec 13 [Moles/vo informati 2016 lume] in on in 11:35 PM Blood source data CBC W Auto Differential panel in Blood Observa Value Referen Units Interpr Notes Date tion ce etation Range Basophils 0 - 0.2 K/MM3 Normal No Dec 132016 [#/volume on in 11:35 PM ] in source Blood by data Automated count Basophils 0.1 - 2.0 % Normal No Dec 13 /100 2016 leukocyte on in 11:35 PM s in source Blood by data Automated count Eosinophi 0.0 - 0.4 K/mm3 Normal No Dec 13 ls 2016 [#/volume on in 11:35 PM ] in source Blood by data Automated count Eosinophi 0.1 - % Normal No Dec 13 ls/100 12.0 2016 leukocyte on in 11:35 PM s in source Blood by data Automated count Granulocy 1.3 - 8.0 K/mm3 Normal No Dec 13 kelley 2016 [#/volume on in 11:35 PM ] in source Blood by data Automated count Granulocy 37.0 - % Normal No Dec 13 kelley/100 80.0 2016 leukocyte on in 11:35 PM s in source Blood by data Automated count Hematocri 42.0 - % Low No Dec 13 t [Volume 52.0 2016 on in 11:35 PM Fraction] source of Blood data Hemoglobi 14.1 - g/dL Low No Dec 13 n 18.0 2016 [Mass/vol on in 11:35 PM ume] in source Blood data Lymphocyt 0.7 - 4.5 K/mm3 Normal No Dec 13 es 2016 [#/volume on in 11:35 PM ] in source Unspecifi data ed specimen by Automated count Lymphocyt 10 - 50 % Normal No Dec 4 es 2016 [#/volume on in 11:35 PM ] in source Unspecifi data ed specimen by Automated count Erythrocy 27 - 31.2 pg Low No Dec 13 te mean 2016 corpuscul on in 11:35 PM ar source hemoglobi data n [Entitic mass] Erythrocy 31.8 - g/dl Low No Dec 13 te mean 35.4 2016 corpuscul on in 11:35 PM ar source hemoglobi data n concentra tion [Mass/vol ume] by Automated count Erythrocy 82.2 - fl Normal No Dec 13 te mean 97.8 2016 corpuscul on in 11:35 PM ar volume source [Entitic data volume] by Automated count Monocytes 0.1 - 1.0 K/mm3 High No Dec 132016 [#/volume on in 11:35 PM ] in source Blood by data Automated count Monocytes 1.7 - 9.3 % High No Dec 13 /100 2016 leukocyte on in 11:35 PM s in source Blood by data Automated count Platelet 7.4 - fl Low No Dec 13 mean 10.4 2016 volume on in 11:35 PM [Entitic source volume] data in Blood by Automated count Platelets 142 - 424 K/mm3 Normal No Dec 132016 [#/volume on in 11:35 PM ] in source Blood data Erythrocy 4.6 - 6.2 M/mm3 Low No Dec 13 kelley 2016 [#/volume on in 11:35 PM ] in source Amniotic data fluid Erythrocy 11.5 - % High No Dec 13 te 17.5 2016 distribut on in 11:35 PM ion width source [Entitic data volume] by Automated count Leukocyte 4.8 - K/MM3 Normal No Dec 13 s 10.8 2016 [#/volume on in 11:35 PM ] in source Blood data Protein [Mass/volume] in Body fluid Observa Value Referen Units Interpr Notes Date tion ce etation Range Protein . g/dL No Dec 03 [Mass/vol informati 2016 ume] [...] the clinical context forinterp retation. Performed at: [address] [id number] Senior Salesforce Developer: Salvador Martínez PhD, Phone: [phone] Glucose [Mass/volume] in Body fluid Observa Value Referen Units Interpr Notes Date tion ce etation Range Glucose . mg/dL No Nov 25 [Mass/vol informati 2016 ume] in on in [...] Y: NORMAL Monocytes No % No No Dec 03 informati informati informati 2016 [#/volume on in on in on in 12:45 PM ] in Body source source source fluid data data data Neutrophi No % No No Dec 03 ls.segmen informati informati informati 2016 ekaterina/100 on in on in on in 12:45 PM leukocyte source source source s in Body data data data fluid by Manual count Erythrocy No /mm3 No No Dec 03 kelley informati informati informati 2016 [#/volume on [...] Body fluid Leukocyte No MM No No Nov 25 s informati informati informati 2016 [#/volume on in on in on in 12:45 PM ] in Body source source source fluid data data data Basic metabolic panel in Blood Observa Value Referen Units Interpr Notes Date tion ce etation Range Urea 7 - 18 mg/dL High No Dec 03 nitrogen informati 2016 6:30 [Mass/vol on in AM ume] in source Serum or data Plasma Calcium 8.5 - mg/dL Low No Nov 25 [Mass/vol 10.1 informati 2016 6:30 ume] in on in AM Serum or source Plasma data Chloride 98 - 107 mmoL/L Normal No Dec 03 [Moles/vo informati 2016 6:30 lume] in on in AM Serum or source Plasma data Carbon 21.0 - mmoL/L Normal No Dec 03 dioxide, 32.0 informati 2017 6:30 total on in AM [Moles/vo source lume] in data Serum or Plasma Creatinin 0.70 - mg/dL High No Nov 25 e 1.30 informati 2017 6:30 [Mass/vol on in AM ume] in source Serum or data Plasma Creatinin 50 - 200 ML/MIN Normal No Nov 25 e renal informati 2017 6:30 clearance on in AM source predicted data by Cockcroft -Gault formula Estimated >60 ML/MIN No REFERENCE Oct 25 informati RANGE: 2017 6:30 glomerula on in >60 AM r source ML/MIN/1. filtratio data 73 SQUARE n rate METERSIf (GF this patient is -A merican, then multiply theresult by 1.210. Glucose 74 - 106 mg/dL High No Nov 25 [Mass/vol informati 2017 6:30 ume] in on in AM Serum or source Plasma data Potassium 3.5 - 5.1 mmoL/L Normal No Nov 25 informati 2016 6:30 [Moles/vo on in AM lume] in source Serum or data Plasma Sodium 136 - 145 mmoL/L Normal No Nov 25 [Moles/vo informati 2017 6:30 lume] in on in AM Serum or source Plasma data CBC W Auto Differential panel in Blood Observa Value Referen Units Interpr Notes Date ti ce etation Range Basophils 0 - 0.2 K/MM3 Normal No Dec 03 informati 2017 6:30 [#/volume on in AM ] in source Blood by data Automated count Basophils 0.1 - 2.0 % Normal No Dec 03 /100 informati 2017 6:30 leukocyte on in AM s in source Blood by data Automated count Eosinophi 0.0 - 0.4 K/mm3 Normal No Dec 03 ls informati 2016 6:30 [#/volume on in AM ] in source Blood by data Automated count Eosinophi 0.1 - % Normal No Dec 03 ls/100 12.0 informati 2017 6:30 leukocyte on in AM s in source Blood by data Automated count Granulocy 1.3 - 8.0 K/mm3 High No Dec 03 kelley informati 2016 6:30 [#/volume on in AM ] in source Blood by data Automated count Granulocy 37.0 - % Normal No Dec 03 kelely/100 80.0 informati 2016 6:30 leukocyte on in AM s in source Blood by data Automated count Hematocri 42.0 - % Low No Dec 03 t [Volume 52.0 informati 2017 6:30 on in AM Fraction] source of Blood data Hemoglobi 14.1 - g/dL Low No Dec 03 n 18.0 informati 2017 6:30 [Mass/vol on in AM ume] in source Blood data Lymphocyt 0.7 - 4.5 K/mm3 Normal No Dec 03 es informati 2017 6:30 [#/volume on in AM ] in source Unspecifi data ed specimen by Automated count Lymphocyt 10 - 50 % Low No Dec 03 es informati 2017 6:30 [#/volume on in AM ] in source Unspecifi data ed specimen by Automated count Erythrocy 27 - 31.2 pg Low No Dec 03 te mean informati 2017 6:30 corpuscul on [...] - 9.3 % High No Dec 03 informati 2016 6:30 leukocyte on in AM s in source Blood by data Automated count Platelet 7.4 - fl Normal No Dec 03 mean 10.4 informati 2016 6:30 volume on in AM [Entitic source volume] data in Blood by Automated count Platelets 142 - 424 K/mm3 Normal No Dec 03 inform2016 6:30 [#/volume on in AM ] in source Blood data Erythrocy 4.6 - 6.2 M/mm3 Low No Dec 03 kelley informati 2016 6:30 [...] PICC Vancomyci 5.0 - mcg/mL High No Dec 02 n 10.0 informati 2016 1:30 [Mass/vol on in PM ume] in source Serum or data Plasma --trough CBC W Auto Differential panel in Blood Observa Value Referen Units Interpr Notes Date tion ce etation Range Basophils 0 - 0.2 K/MM3 Normal No Dec 01 inform2016 4:20 [#/volume on in AM ] in source Blood by data Automated count Basophils 0.1 - 2.0 % Normal No Dec 01 informati 2016 [...] K/mm3 Normal No Dec 01 es informati 2017 4:20 [#/volume on in AM ] in [...] No Dec 01 te mean 35.4 informati 2017 4:20 corpuscul on in AM ar source hemoglobi data n concentra tion [Mass/vol ume] by Automated count Erythrocy 82.2 - fl Normal No Dec 01 te mean 97.8 informati 2017 4:20 corpuscul on in AM ar volume source [Entitic data volume] by Automated count Monocytes 0.1 - 1.0 K/mm3 High No Dec 01 informati 2017 4:20 [#/volume on in AM ] in source Blood by data Automated count Monocytes 1.7 - 9.3 % High No Dec 01 /100 informati 2017 4:20 leukocyte on in AM s in [...] Normal No Dec 01 te 17.5 informati 2017 4:20 distribut on in AM ion width source [Entitic data volume] by Automated count Leukocyte 4.8 - K/MM3 High No Nov 23 s 10.8 informati 2016 4:20 [#/volume on [...] % Normal No Dec 01 ls.band informati 2017 4:20 form/100 on in AM leukocyte source [...] Monocytes 2 - 9 % Normal No Oct 23 /100 informati 2016 4:20 leukocyte on in [...] Dec 01 cytosis informa informa informa informa 2016 tion in tion in tion in tion [...] No Dec 01 Counted informati informati informati 2017 4:20 Total [#] on in on in on in AM in Blood source source source data data data Comprehensive metabolic 2000 panel in Serum or Plasma Observa Value Referen Units Interpr Notes Date tion ce etation Range Albumin/G 1.1 - 1.8 No Low No Oct 23 lobulin informati informati 2017 4:20 [Mass on in on in AM ratio] in source source Serum or data data Plasma Albumin 3.4 - 5.0 gm/dL Low No Nov 23 [Mass/vol informati 2017 4:20 ume] in on in AM Serum or source Plasma data Alkaline 46 - 116 U/L High No Nov 23 phosphata informati 2017 4:20 se on in AM [Enzymati source c data activity/ volume] in Serum or Plasma Bilirubin 0.2 - 1.0 mg/dL Normal No Dec 01 .total informati 2017 4:20 [Mass/vol on in AM ume] in [...] Normal No Dec 01 dioxide, 32.0 informati 2017 4:20 total on in AM [Moles/vo source lume] in data Serum or Plasma Creatinin 0.70 - mg/dL Normal No Oct 23 e 1.30 informati 2017 4:20 [Mass/vol on in AM ume] in source Serum or data Plasma Creatinin 50 - 200 ML/MIN Normal No Oct 23 e renal informati 2017 4:20 clearance on in AM source predicted data by Cockcroft -Gault formula Estimated >60 ML/MIN No REFERENCE Oct 23 informati RANGE: 2017 4:20 glomerula on in >60 AM r source ML/MIN/1. filtratio data 73 SQUARE n rate METERSIf (GF this patient is -A merican, then multiply theresult by 1.210. Globulin 1.3 - 3.2 gm/dL High No Oct 23 [Mass/vol informati 2017 4:20 ume] in on in [...] mmoL/L High No Nov 30 [Moles/vo informati 2017 6:30 lume] in on [...] mmoL/L Normal No Nov 30 [Moles/vo informati 2017 6:30 lume] in on in AM Serum or source Plasma data Vancomycin [Mass/volume] in Serum or Plasma --trough Observa Value Referen Units Interpr Notes Date tion ce etation Range Vancomyci 5.0 - mcg/mL High CALLED TO Nov 30 n 10.0 L 2017 6:30 [Mass/vol FREEMAN AM ume] in [facility] Serum or 11/30/16 Plasma 0725 JS --trough [...] Normal No Nov 30 ls/100 12.0 informati 2016 6:30 leukocyte on in AM s in source Blood by data Automated count Granulocy 1.3 - 8.0 K/mm3 High No Nov 30 kelley informati 2016 6:30 [#/volume on in AM ] in source Blood by data Automated count Granulocy 37.0 - % Normal No Nov 30 kelley/100 80.0 informati 2016 6:30 leukocyte on in AM s in source Blood by data Automated count Hematocri 42.0 - % Low No Nov 30 t [Volume 52.0 informati 2016 6:30 on in AM Fraction] source of Blood data Hemoglobi 14.1 - g/dL Low No Nov 30 n 18.0 informati 2017 6:30 [Mass/vol on in AM [...] % High No Nov 30 /100 informati 2017 6:30 leukocyte on in AM s in source Blood by data Automated count Platelet 7.4 - fl Normal No Nov 30 mean 10.4 informati 2017 6:30 volume on in AM [Entitic source volume] data in Blood by Automated count Platelets 142 - 424 K/mm3 Normal No Nov 30 informati 2017 6:30 [#/volume on in AM ] in source Blood data Erythrocy 4.6 - 6.2 M/mm3 Low No Nov 30 kelley informati 2017 6:30 [#/volume on in AM ] in source Amniotic data fluid Erythrocy 11.5 - % Normal No Nov 30 te 17.5 informati 2017 6:30 distribut on in AM ion width source [Entitic data volume] by Automated count Leukocyte 4.8 - K/MM3 High No Nov 30 s 10.8 informati 2016 6:30 [#/volume on [...] Nov 29 a informa informa informa informa 2016 identif tion in tion in tion in tion in 2:35 AM ied in source source source source Sputum data data data data by Culture Vancomycin [Mass/volume] in Serum or Plasma --trough Observa Value Referen Units Interpr Notes Date tion ce etation Range COMMENTS TO HAND CLERICAL VERIFIER: CALL 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 g/dL No Nov 27 [...] Date tion ce etation Range COMMENTS TO HAND CLERICAL VERIFIER: ascites Protein . g/dL No Nov 27 [...] the clinical context forinterp retation. Performed at: [facility] [address] [id number] Senior Salesforce Developer: Salvador Martínez PhD, Phone: [phone] Glucose [Mass/volume] in Body fluid Observa Value Referen Units Interpr Notes Date tion ce etation Range COMMENTS TO HAND CLERICAL VERIFIER: ascites Glucose . mg/dL No Nov 27 [...] 1.1 - 1.8 No Low No Nov 26 lobulin informati informati 2016 6:04 [Mass on in on in AM ratio] in source source Serum or data data Plasma Albumin 3.4 - 5.0 gm/dL Low No Nov 26 [Mass/vol informati 2016 6:04 ume] in on in AM Serum or source Plasma data Alkaline 46 - 116 U/L High No Oct 18 phosphata informati 2017 6:04 se on in AM [Enzymati source c data activity/ volume] in Serum or Plasma Bilirubin 0.2 - 1.0 mg/dL High No Oct 18 .total informati 2017 6:04 [Mass/vol on in AM ume] in source Serum or data Plasma Urea 7 - 18 mg/dL High No Oct 18 nitrogen informati 2017 6:04 [Mass/vol on in AM ume] in source Serum or data Plasma Calcium 8.5 - mg/dL Low No Oct 18 [Mass/vol 10.1 informati 2017 6:04 ume] in on in AM Serum or source Plasma data Chloride 98 - 107 mmoL/L High No Oct 18 [Moles/vo informati 2017 6:04 lume] in on in AM Serum or source Plasma data Carbon 21.0 - mmoL/L Normal No Oct 18 dioxide, 32.0 informati 2017 6:04 total on in AM [Moles/vo source lume] in data Serum or Plasma Creatinin 0.70 - mg/dL Normal No Oct 18 e 1.30 informati 2017 6:04 [Mass/vol on in AM ume] in source Serum or data Plasma Creatinin 50 - 200 ML/MIN Normal No Oct 18 e renal informati 2017 6:04 clearance on in AM source predicted data by Cockcroft -Gault formula Estimated >60 ML/MIN No REFERENCE Oct 18 informati RANGE: 2017 6:04 glomerula on in >60 AM r source ML/MIN/1. filtratio data 73 SQUARE n rate METERSIf (GF this patient is -A merican, then multiply theresult by 1.210. Globulin 1.3 - 3.2 gm/dL High No Oct 18 [Mass/vol informati 2017 6:04 ume] in on in AM Serum source data Glucose 74 - 106 mg/dL Normal No Oct 18 [Mass/vol informati 2017 6:04 ume] in on in AM Serum or source Plasma data Potassium 3.5 - 5.1 mmoL/L Normal No Oct 18 informati 2017 6:04 [Moles/vo on in AM lume] in source Serum or data Plasma Sodium 136 - 145 mmoL/L Normal No Oct 18 [Moles/vo informati 2017 6:04 lume] in on in AM Serum or source Plasma data Aspartate 15 - 37 U/L High No Nov 26 informati 2016 6:04 aminotran on in AM sferase source [...] 0 - 0.2 K/MM3 Normal No Nov 26 informati 2016 6:04 [#/volume on in AM ] in source Blood by data Automated count Basophils 0.1 - 2.0 % Normal No Nov 26 / informati 2016 6:04 leukocyte on in AM [...] K/mm3 High No Nov 26 kelley informati 2016 6:04 [#/volume on in AM ] in source Blood by data Automated count Granulocy 37.0 - % High No Nov 26 kelley/100 80.0 informati 2016 6:04 leukocyte on in AM s in source Blood by data Automated count Hematocri 42.0 - % Low No Nov 26 t [Volume 52.0 informati 2016 6:04 on in AM Fraction] source of Blood data Hemoglobi 14.1 - g/dL Low No Nov 26 n 18.0 informati 2016 6:04 [Mass/vol on in AM ume] in source Blood data Lymphocyt 0.7 - 4.5 K/mm3 Normal No Nov 26 es informati 2016 6:04 [#/volume on in AM ] in source Unspecifi data ed specimen by Automated count Lymphocyt 10 - 50 % Normal No Nov 26 es informati 2016 6:04 [#/volume on in AM [...] 1.0 K/mm3 Normal No Nov 18 informati 2016 6:04 [#/volume on in AM ] in source Blood by data Automated count Monocytes 1.7 - 9.3 % Normal No Nov 18 /100 informati 2017 6:04 leukocyte on in AM s in source Blood by data Automated count Platelet 7.4 - fl Normal No Nov 18 mean 10.4 informati 2016 6:04 volume on in AM [Entitic source [...] Erythrocy 11.5 - % Normal No Nov 18 te 17.5 informati 2017 6:04 distribut on in AM ion width source [Entitic data volume] by Automated count Leukocyte 4.8 - K/MM3 Normal No Nov 18 s 10.8 informati 2016 6:04 [#/volume on in AM ] in source Blood data Alk Phos Isoenzyme Observa Value Referen Units Interpr Notes Date tion ce etation Range Alkaline 12 - 68 % No No Nov 16 phosphata informati informati 2017 1:30 se.bone/A on in on in PM lkaline source source phosphata data data se.total in Serum or Plasma Alkaline 0 - 18 % No Performed Nov 24 phosphata informati at: CB 2017 1:30 se.intest on in - [facility] PM inal/Radha source line data [id number] phosphata [address], in Serum Khai, or Plasma [place] [id number] Senior Salesforce Developer: Salvador Martínez PhD, Phone: [phone] Alkaline 13 - 88 % No No Nov 24 phosphata informati informati 2017 1:30 se.liver/ on in on in PM Alkaline source source phosphata data data se.total in Serum or Plasma Alkaline 39 - 117 IU/L High Performed Nov 24 phosphata at: CB 2017 1:30 se - [facility] PM [Enzymati c [id number] activity/ [address] volume] Road, in Serum [place], or [place] [id number] Senior Salesforce Developer: Salvador Martínez PhD, Phone: [phone] INR in Blood by Coagulation assay Observa Value Referen Units Interpr Notes Date tion ce etation Range COMMENTS TO HAND CLERICAL VERIFIER: COLLECTED BY PHYSICIAN IS PATIENT ON ANTICOAGULANTS? [...] Date tion ce etation Range COMMENTS TO HAND CLERICAL VERIFIER: COLLECTED BY PHYSICIAN Ammonia 19 - 54 umoL/L Low No Nov 24 [Mass/vol informati 2017 1:30 ume] in on in PM Unspecifi source ed data specimen Gamma glutamyl transferase [Enzymatic activity/volume] in Serum or Plasma Observa Value Referen Units Interpr Notes Date tion ce etation Range Gamma 15 - 85 U/L High No Nov 24 glutamyl informati 2016 1:30 transfera on in PM se source [Enzymati data c activity/ volume] in Serum or Plasma Comprehensive metabolic 2000 panel in Serum or Plasma Observa Value Referen Units Interpr Notes Date tion ce etation Range Albumin/G 1.1 - 1.8 No Low No Nov 24 lobulin informati informati 2016 6:20 [Mass on in on in AM ratio] in source source Serum or data data Plasma Albumin 3.4 - 5.0 gm/dL Low No Nov 16 [Mass/vol informati 2017 6:20 ume] in on in AM Serum or source Plasma data Alkaline 46 - 116 U/L High No Nov 16 phosphata informati 2017 6:20 se on in AM [Enzymati source c data activity/ volume] in Serum or Plasma Bilirubin 0.2 - 1.0 mg/dL High No Nov 16 .total informati 2017 6:20 [Mass/vol on in AM ume] in source Serum or data Plasma Urea 7 - 18 mg/dL High No Nov 16 nitrogen informati 2017 6:20 [Mass/vol on in AM ume] in source Serum or data Plasma Calcium 8.5 - mg/dL Low No Nov 16 [Mass/vol 10.1 informati 2017 6:20 ume] in on in AM Serum or source Plasma data Chloride 98 - 107 mmoL/L Normal No Nov 16 [Moles/vo informati 2016 6:20 lume] in on [...] 50 - 200 ML/MIN Normal No Nov 16 e renal informati 2017 6:20 clearance on in AM source predicted data by Cockcroft -Gault formula Estimated >60 ML/MIN No REFERENCE Nov 16 informati RANGE: 2017 6:20 glomerula on in >60 AM r source ML/MIN/1. filtratio data 73 SQUARE n rate METERSIf (GF this patient is -A merican, then multiply theresult by 1.210. Globulin 1.3 - 3.2 gm/dL High No Nov 16 [Mass/vol informati 2017 6:20 ume] in on in AM Serum source data Glucose 74 - 106 mg/dL High No Nov 16 [Mass/vol informati 2016 6:20 ume] in on in AM Serum or source Plasma data Potassium 3.5 - 5.1 mmoL/L Normal No Oct 16 informati 2017 6:20 [Moles/vo on in AM lume] in [...] - 2.0 % Normal No Nov 24 / informati 2016 6:20 leukocyte on in AM s in source Blood by data Automated count Eosinophi 0.0 - 0.4 K/mm3 Normal No Nov 24 ls informati 2016 6:20 [#/volume on in AM ] in source Blood by data Automated count Eosinophi 0.1 - % Normal No Nov 24 ls/100 12.0 informati 2016 6:20 leukocyte on in AM s in source Blood by data Automated count Granulocy 1.3 - 8.0 K/mm3 Normal No Nov 24 kelley informati 2016 6:20 [#/volume on in AM ] in source Blood by data Automated count Granulocy 37.0 - % Normal No Nov 24 kelley/100 80.0 informati 2016 6:20 leukocyte on in AM s in source Blood by data Automated count Hematocri 42.0 - % Low No Nov 24 t [Volume 52.0 informati 2016 6:20 on in AM Fraction] source of Blood data Hemoglobi 14.1 - g/dL Low No Nov 24 n 18.0 informati 2016 6:20 [Mass/vol on in AM ume] in source Blood data Lymphocyt 0.7 - 4.5 K/mm3 Normal No Nov 24 es informati 2017 6:20 [#/volume on in AM ] in source Unspecifi data ed specimen by Automated count Lymphocyt 10 - 50 % Normal No Nov 16 es informati 2017 6:20 [#/volume on in AM ] in source Unspecifi data ed specimen by Automated count Erythrocy 27 - 31.2 pg Low No Nov 16 te mean informati 2016 6:20 corpuscul on in AM ar source [...] 1.0 K/mm3 High No Nov 16 informati 2016 6:20 [#/volume on in AM ] in source Blood by data Automated count Monocytes 1.7 - 9.3 % High No Nov 16 /100 informati 2017 6:20 leukocyte on in AM s in source Blood by data Automated count Platelet 7.4 - fl Normal No Nov 24 mean 10.4 informati 2017 6:20 volume on [...] Eosinophi 0.1 - % Normal No Nov 14 ls/100 12.0 informati 2016 5:50 leukocyte on [...] Hemoglobi 14.1 - g/dL Low No Nov 22 n 18.0 informati 2016 5:50 [Mass/vol on in AM ume] in source Blood data Lymphocyt 0.7 - 4.5 K/mm3 Normal No Nov 14 es informati 2016 5:50 [#/volume on in AM ] in source Unspecifi data ed specimen by Automated count Lymphocyt 10 - 50 % Low No Nov 14 es inform2016 5:50 [#/volume on in AM ] in source Unspecifi data ed specimen by Automated count Erythrocy 27 - 31.2 pg Low No Nov 14 te mean informati 2016 5:50 corpuscul on in AM ar source hemoglobi data n [Entitic mass] Erythrocy 31.8 - g/dl Low No Nov 14 te mean 35.4 informati 2016 5:50 corpuscul on in AM ar source hemoglobi data n concentra tion [Mass/vol ume] by Automated count Erythrocy 82.2 - fl Normal No Nov 14 te mean 97.8 informati 2016 5:50 corpuscul on in AM ar volume source [Entitic data volume] by Automated count Monocytes 0.1 - 1.0 K/mm3 Normal No Nov 14 informati 2016 5:50 [#/volume on in AM ] in source Blood by data Automated count Monocytes 1.7 - 9.3 % Normal No Oct 14 /100 informati 2017 5:50 leukocyte on in AM s in source Blood by data Automated count Platelet 7.4 - fl Normal No Nov 14 mean 10.4 informati 2016 5:50 volume on in AM [Entitic source volume] data in Blood by Automated count Platelets 142 - 424 K/mm3 No No Oct 14 informati informati 2017 5:50 [#/volume on in on in AM ] in source source Blood data data Erythrocy 4.6 - 6.2 M/mm3 Low No Nov 14 kelley informati 2016 5:50 [#/volume on in AM ] in source Amniotic data fluid Erythrocy 11.5 - % Normal No Nov 14 te 17.5 informati 2017 5:50 distribut on in AM ion width [...] U/L High No Nov 14 phosphata informati 2016 5:50 se on in AM [Enzymati source c data activity/ volume] in Serum or Plasma Bilirubin 0.2 - 1.0 mg/dL Normal No Nov 14 .total informati 2016 5:50 [Mass/vol on in AM ume] in source Serum or data Plasma Urea 7 - 18 mg/dL High No Nov 14 nitrogen informati 2016 5:50 [Mass/vol on in AM ume] in source Serum or data Plasma Calcium 8.5 - mg/dL Low No Nov 14 [Mass/vol 10.1 informati 2016 5:50 ume] in on in AM Serum or source Plasma data Chloride 98 - 107 mmoL/L Normal No Nov 14 [Moles/vo informati 2016 5:50 lume] in on in AM Serum or source Plasma data Carbon 21.0 - mmoL/L Normal No Nov 14 dioxide, 32.0 informati 2016 5:50 total on in AM [Moles/vo source lume] in data Serum or Plasma Creatinin 0.70 - mg/dL Normal No Nov 14 e 1.30 informati 2016 5:50 [Mass/vol on in AM ume] in source Serum or data Plasma Creatinin 50 - 200 ML/MIN Normal No Nov 22 e renal informati 2016 5:50 clearance on in AM source predicted data by Cockcroft -Gault formula Estimated >60 ML/MIN No REFERENCE Nov 14 informati RANGE: 2016 5:50 glomerula on in >60 AM r source ML/MIN/1. filtratio data 73 SQUARE n rate METERSIf (GF this patient is -A merican, then multiply theresult by 1.210. Globulin 1.3 - 3.2 gm/dL High No Nov 14 [Mass/vol informati 2016 5:50 ume] in on in AM Serum source data Glucose 74 - 106 mg/dL High No Nov 14 [Mass/vol informati 2016 5:50 ume] in on in AM Serum or source Plasma data Potassium 3.5 - 5.1 mmoL/L Normal No Nov 14 inform2016 5:50 [Moles/vo on in AM lume] in source Serum or data Plasma Sodium 136 - 145 mmoL/L Normal No Nov 14 [Moles/vo informati 2016 5:50 lume] in on in AM Serum or source Plasma data Aspartate 15 - 37 U/L No No Nov 14 informati informati 2016 5:50 aminotran on in on in AM sferase source source [Enzymati data data c activity/ volume] in Serum or Plasma Alanine 12 - 78 U/L No No Nov 14 aminotran informati informati 2016 5:50 sferase on in on in AM [Enzymati source source c data data activity/ volume] in Serum or Plasma Protein 6.4 - 8.2 gm/dL Low No Nov 14 [Mass/vol informati 2016 5:50 ume] in on in AM Serum or source Plasma data Lactate [Moles/volume] in Blood Observa Value Referen Units Interpr Notes Date tion ce etation Range Lactate 0.4 - 2.0 mmol/L Normal No Nov 13 [Moles/vo informati 2016 lume] in on in [...] No No Nov 21 cytes informa informa 2017 [Presen tion in tion in 10:55 ce] in source source AM Urine data data sedimen t by Light microsc opy Specific 1.005 - No Normal No Nov 21 gravity 1.030 informati informati 2017 of Urine on in on in 10:55 [...] Date ti ce etation Range COMMENTS TO HAND CLERICAL VERIFIER: PLEASE USE BLOOD ALREADY DRAWN Amylase 25 - 115 U/L Normal No Nov 21 [Enzymati informati 2016 c on in 10:50 AM activity/ source volume] data in Serum or Plasma Lipase [Enzymatic activity/volume] in Serum or Plasma Observa Value Referen Units Interpr Notes Date ce etation Range COMMENTS TO HAND CLERICAL VERIFIER: PLEASE USE BLOOD ALREADY DRAWN Lipase 73 - 393 U/L Normal No Nov 21 [Enzymati informati 2016 c on in 10:50 AM activity/ source volume] data in Serum or Plasma CBC W Auto Differential panel in Blood Observa Value Referen Units Interpr Notes Date ti ce etation Range Basophils 0 - 0.2 K/MM3 Normal No Nov 21 inform2016 [#/volume on in 10:50 AM ] [...] g/dL Low No Nov 21 n 18.0 inform2016 [Mass/vol on in 10:50 AM ume] in source Blood data Lymphocyt 0.7 - 4.5 K/mm3 Normal No Nov 21 es inform2016 [#/volume on in 10:50 AM ] [...] 1.7 - 9.3 % Normal No Nov 212016 leukocyte on in 10:50 AM s in source Blood by data Automated count Platelet 7.4 - fl Low No Nov 21 mean 10.4 inform2016 volume on in 10:50 AM [Entitic source volume] data in Blood by Automated count Platelets 142 - 424 K/mm3 No No Nov 21 informati 2016 [#/volume on in on in [...] 10 - 50 % Low No Nov 212016 tion in 10:50 source AM data Monocytes [...] No #CELLS No No Nov 21 Counted ati ati 2016 Total [#] on in on in on in 10:50 AM in Blood source source source data data data Comprehensive metabolic 2000 panel in Serum or Plasma Observa Value Referen Units Interpr Notes Date tion ce etation Range Albumin/G 1.1 - 1.8 No Low No Nov 21 lobulin informati informati 2016 [Mass on in [...] Normal No Nov 21 e renal informati 2017 clearance on in 10:50 AM source predicted data by Cockcroft -Gault formula Estimated >60 ML/MIN No REFERENCE Nov 13 informati RANGE: 2017 glomerula on in >60 10:50 AM r source ML/MIN/1. filtratio data 73 SQUARE n rate METERSIf (GF this patient is -A merican, then multiply theresult by 1.210. Globulin 1.3 - 3.2 gm/dL High No Nov 13 [Mass/vol informati 2016 ume] in on in [...] 07 nce of CLOUDY informa informa informa 2016 Urine tion in [...] No Nov 07 gravity 1.030 informati informati 2016 of Urine on in on in source source data data Epithel OCC OCC #/hpf No No Oct 29 ial informa informa 2017 cells.s tion in tion in quamous source source data data [Presen ce] in Urine sedimen t by Microsc opy high power field Urobili 0.2 NEG E.U./dL No No Sep nogen informa informa 2017 [Presen tion in tion in ce] in source source Urine data data by Test strip Leukocy [10 O wbc/hpf No No Sep 29 kelley wbc/hpf informa informa 2017 [#/volu ; [...] No Nov 07 of informa informa informa 2016 Urine tion [...]
--- OUTSIDE RECORDS SUMMARY | 2016-12-14 01:03 | External Medical Summary Rpt ---
[...] the clinical context forinterp retation. Performed at: [address] [id number] Intermediate Project Manager: Salvador Martínez PhD, Phone: [phone] Glucose [Mass/volume] in Body fluid Observa [...] ume] in [facility] Serum or 11/30/16 Plasma 0725 JS --trough [...] Date tion ce etation Range COMMENTS TO SOUBRETTE: CALL PHARMACIST SEMICONDUCTOR WAFERS TESTER WITH LEVEL Vancomyci 5.0 - mcg/mL High No Nov 27 n 10.0 informati 2017 7:25 [Mass/vol on in PM ume] in source Serum or data Plasma --trough Albumin [Mass/volume] in Body fluid Observa Value Referen Units Interpr Notes Date tion ce etation Range COMMENTS TO SOUBRETTE: ascites Albumin . g/dL No Nov 27 [...] Date tion ce etation Range COMMENTS TO SOUBRETTE: ascites Protein . g/dL No Nov 27 [...] the clinical context forinterp retation. Performed at: [facility] [address] [id number] Intermediate Project Manager: Salvador Martínez PhD, Phone: [phone] Glucose [Mass/volume] in Body fluid Observa Value Referen Units Interpr Notes Date tion ce etation Range COMMENTS TO SOUBRETTE: ascites Glucose . mg/dL No Nov 27 [...] - [facility] PM inal/Radha source line data [id number] phosphata [address], in Serum Khai, or Plasma [place] [id number] Intermediate Project Manager: Salvador Martínez PhD, Phone: [phone] Alkaline 13 - 88 % No No Nov 24 phosphata informati informati 2017 1:30 se.liver/ on in on in PM Alkaline source source phosphata data data se.total in Serum or Plasma Alkaline 39 - 117 IU/L High Performed Nov 24 phosphata at: CB 2017 1:30 se - [facility] PM [Enzymati c [id number] activity/ [address]] Road, in Serum Khai, or Plasma [place] [id number] Intermediate Project Manager: Salvador Martínez PhD, Phone: [phone] INR in Blood by Coagulation assay Observa Value Referen Units Interpr Notes Date tion ce etation Range COMMENTS TO SOUBRETTE: COLLECTED BY PHYSICIAN IS PATIENT ON ANTICOAGULANTS? [...] Date tion ce etation Range COMMENTS TO SOUBRETTE: COLLECTED BY PHYSICIAN Ammonia 19 - 54 [...] Date ti ce etation Range COMMENTS TO SOUBRETTE: PLEASE USE BLOOD ALREADY DRAWN Amylase 25 - 115 U/L Normal No Nov 21 [Enzymati informati 2016 c on in 10:50 AM activity/ source volume] data in Serum or Plasma Lipase [Enzymatic activity/volume] in Serum or Plasma Observa Value Referen Units Interpr Notes Date ce etation Range COMMENTS TO SOUBRETTE: PLEASE USE BLOOD ALREADY DRAWN Lipase 73 [...]
--- OUTSIDE RECORDS SUMMARY | 2016-12-14 01:59 | External Medical Summary Rpt | CCD ---
Author Author , ELIGIO Organization ELIGIO Address Unknown Phone [email or web address] Care Team Providers Care Stock Pitcher Name Role Phone Anne Traore APRN, Unavailable Unavailable Anne Husain MD, Unavailable Unavailable Harinder Husain MD Purpose Continuity of Care Document - 05-03-2012 through 2016 Problems Code Diagnosis DOS Provider Status [id number] Headache [facility] [id number] [facility] 401.9 [facility]-induce [facility] [id number] Anxiety [facility] 729.82 Leg cramp [facility] 780.2 Syncope [facility] I10 ESSENTIAL (PRIMARY) [facility] I95.9 HYPOTENSION , UNSPECIFIED K74.60 UNSPECIFIED CIRRHOSIS OF LIVER M79.671 PAIN IN RIGHT FOOT N12 TUBULO-INTE RSTITIAL NEPHRITIS, NOT SPCF ACUTE OR CHRONIC N28.9 DISORDER OF KIDNEY AND URETER, UNSPECIFIED R07.9 CHEST PAIN, UNSPECIFIED R42 DIZZINESS AND GIDDINESS R60.1 GENERALIZED EDEMA W19.XXXA UNSPECIFIED FALL, INITIAL ENCOUNTER Z01.818 ENCOUNTER FOR OTHER PREPROCEDUR AL EXAMINATION 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 Comment: Performed at: [facility] Comment: [id number], [place] [id number] Comment: Prison Guard Supervisor: Salvador Martínez PhD, Phone: [phone] Body fluid glucose assay (12-03-2016 12:45) Body [...] 017 K/mm3 ed monocyt 06:30 e count Mcdowell % = 16.9 1.7-9.3 complet 017 % [...] w auto diff (12-01-2016 04:20) Automat = 0.0 0-0.2 complet ed 017 K/MM3 ed blood 04:20 basophi l count (count/ vo Baso % = 0.2 % 0.1-2.0 complet 017 ed 04:20 Automat = 0.1 0.0-0.4 complet ed 017 K/mm3 ed blood 04:20 eosinop hil count Automat = 0.4 % [...] % ed count, 04:20 blood, automat ed Mean = 25.3 27-31.2 complet corpusc 017 pg ed ular 04:20 hemoglo bin ([facility]) determ Automat = 28.8 31.8-35 complet ed 017 g/dl .4 ed erythro 04:20 cyte mean corpusc ular h Automat = 87.9 82.2-97 complet ed 017 fl .8 ed erythro 04:20 cyte mean corpusc ular v Absolut = 2.4 0.1-1.0 complet e 017 K/mm3 ed monocyt 04:20 e count Mcdowell % = 15.9 1.7-9.3 complet 017 % ed 04:20 Automat = 7.6 7.4-10. complet ed 017 fl 4 ed blood 04:20 platele t mean volume austyn Blood = 371 142-424 complet platele 017 K/mm3 ed t count 04:20 Red = 3.79 4.6-6.2 complet blood 017 M/mm3 ed cell 04:20 count Automat = 17.4 11.5-17 complet ed 017 % .5 ed erythro 04:20 cyte distrib ution width Blood = 15.0 4.8-10. complet leukocy 017 K/MM3 8 ed kelley 04:20 count (number /volume ) Differential panel, method unspecified - (12-01-2016 04:20) Blood 12-01-2 1+ 1+ L complet anisocy 017 ed tosis 04:20 detecti on Automat = 4 % 0-8 complet ed 017 ed blood 04:20 band neutrop hil percent a Hypochr 10-23-2 2+ 2+ L complet omatic 017 ed [...] count Comprehensive metabolic panel (12-01-2016 04:20) Serum = 0.3 1.1-1.8 complet or 017 [...] SQUARE METERS Comment: If this patient is -[place], then multiply the Comment: result by 1.210. Serum = 4.7 1.3-3.2 complet globuli 017 gm/dL ed n 04:20 measure ment (mass/v olume) Serum = 101 74-106 complet or 017 mg/dL ed plasma 04:20 glucose measure ment (mas Serum = 4.8 3.5-5.1 complet potassi 017 mmoL/L ed um 04:20 measure ment Serum = 140 136-145 complet sodium 017 mmoL/L ed measure 04:20 ment Serum = 25 15-37 complet or 017 U/L ed plasma 04:20 asparta te aminotr ansfera ALT = 26 12-78 complet (SGPT) 017 U/L ed ser/wolfgang 04:20 s Protein = 6.1 6.4-8.2 complet total 017 gm/dL ed ser/wolfgang 04:20 s Differential panel, method unspecified - (12-01-2016 04:20) Anisocy 2 1+ complet tosis 017 ed [Presen 04:20 [...] % 0.1-2.0 complet 017 ed 06:30 Automat 2 = 0.0 0-0.2 complet ed 017 K/MM3 [...] 017 K/mm3 ed monocyt 06:30 e count Mcdowell % = 15.8 1.7-9.3 complet 017 % ed 06:30 Automat = 7.5 7.4-10. complet ed 017 fl 4 ed blood 06:30 platele t mean volume austyn Blood 10-22-2 = 383 142-424 complet platele 017 K/mm3 ed t count 06:30 Red = 3.67 4.6-6.2 complet blood 017 M/mm3 ed cell 06:30 count Automat = 17.4 11.5-17 complet ed 017 % .5 ed erythro 06:30 cyte distrib ution width Blood 11-30-2 = 12.8 4.8-10. complet leukocy 017 K/MM3 8 ed kelley 06:30 count (number /volume ) Basic metabolic panel (11-30-2016 06:30) Serum 11-30-2 = 37 7-18 complet or 017 mg/dL ed plasma 06:30 urea nitroge n measure men Serum = 8.6 8.5-10. complet or 017 mg/dL 1 ed plasma 06:30 calcium measure ment (mas Serum = 108 98-107 complet or 017 mmoL/L ed plasma 06:30 chlorid e measure ment (mo Carbon = 27 21.0-32 complet dioxide 017 mmoL/L .0 ed 06:30 measure ment Serum = 1.3 0.70-1. complet or 017 mg/dL 30 ed plasma 06:30 creatin ine measure ment ( Estimat = 83 50-200 complet ion of 017 ML/MIN ed creatin 06:30 ine renal clearan ce Estimat = 54 >60 complet ed 017 ML/MIN ed glomeru 06:30 lar filtrat ion rate (GF Comment: REFERENCE RANGE: >60 ML/MIN/1.73 SQUARE METERS Comment: If this patient is -[place], then multiply the Comment: result by 1.210. Serum = 115 74-106 complet or 017 mg/dL ed plasma 06:30 glucose measure ment (mas Serum = 4.6 3.5-5.1 complet potassi 017 mmoL/L ed um 06:30 measure ment Serum = 140 136-145 complet sodium 017 mmoL/L ed measure 06:30 ment Vancomycin trough (11-30-2016 06:30) Vancomy --2 = 19.3 5.0-10. complet meghan 017 mcg/mL 0 ed trough 06:30 Comment: CALLED TO Jeff MILLARD [facility] 11/30/16 0725 JS CREATININE (11-29-2016 09:15) Serum = 1.4 0.70-1. complet or 017 mg/dL 30 ed plasma 09:15 creatin ine measure ment ( Estimat = 77 50-200 complet ion of 017 ML/MIN ed creatin 09:15 ine renal clearan ce Estimat = 50 >60 complet ed 017 ML/MIN ed glomeru 09:15 lar filtrat ion rate (GF Comment: REFERENCE RANGE: >60 ML/MIN/1.73 SQUARE METERS Comment: If this patient is -[place], then multiply the Comment: result by 1.210. Vancomycin trough (11-29-2016 09:15) Vancomy = 25.1 5.0-10. complet meghan 017 mcg/mL 0 ed trough 09:15 Comment: Comment: RESULTS CALLED TO PHARMACIST: CHE 11/29/16 0932 Comment: Russell Mondragon Cardiac enzymes (11-29-2016 06:20) Serum = 3.1 [...] WILL HOLD YEAST FOR 5 DAYS. Sputum [id number] complet culture 017 5 Yeast ed 02:35 [...] body fluid (11-27-2016 12:00) Comment: COMMENTS TO REAR LOAD TRUCK DRIVER: ascites BODY COMMENT complet FLUID 017 ed [...] measurement (mass/vol (11-27-2016 12:00) Comment: COMMENTS TO REAR LOAD TRUCK DRIVER: ascites Body = 0.5 . complet fluid [...] fluid, total (11-27-2016 12:00) Comment: COMMENTS TO REAR LOAD TRUCK DRIVER: ascites Protein = 1.7 . complet , [...] interpretation. Comment: Performed at: [facility] Comment: [id number], [place] [id number] Comment: Prison Guard Supervisor: Salvador Martínez PhD, Phone: [phone] Body fluid glucose assay (11-27-2016 12:00) Comment: COMMENTS TO REAR LOAD TRUCK DRIVER: ascites Body = 123 . complet fluid [...] Polanco Comprehensive metabolic panel (11-26-2016 06:04) Serum 11-26-2 = 39 15-37 complet or 017 U/L ed plasma 06:04 asparta te aminotr ansfera ALT = 36 12-78 complet (SGPT) 017 U/L ed ser/wolfgang 06:04 s Protein = 6.9 6.4-8.2 complet total 017 gm/dL ed ser/wolfgang 06:04 s Serum = 138 136-145 complet sodium 017 mmoL/L ed measure 06:04 ment Serum = 4.7 3.5-5.1 complet potassi 017 mmoL/L ed um 06:04 measure ment Serum = 103 74-106 complet or 017 mg/dL ed plasma 06:04 glucose measure ment (mas Serum = 5.6 1.3-3.2 complet globuli 017 gm/dL ed n 06:04 measure ment (mass/v olume) Estimat = 59 >60 complet ed 017 ML/MIN ed glomeru 06:04 lar filtrat ion rate (GF Comment: REFERENCE RANGE: >60 ML/MIN/1.73 SQUARE METERS Comment: If this patient is -[place], then multiply the Comment: result by 1.210. Estimat = 95 50-200 complet ion of 017 ML/MIN ed creatin 06:04 ine renal clearan ce Serum = 1.2 0.70-1. complet or 017 mg/dL 30 ed plasma 06:04 creatin ine measure ment ( Carbon = 24 21.0-32 complet dioxide 017 mmoL/L .0 ed 06:04 measure ment Serum 2 = 108 98-107 complet or 017 mmoL/L ed plasma 06:04 chlorid e measure ment (mo Serum 2 = 8.1 8.5-10. complet or 017 mg/dL [...] plasma 06:04 albumin /globul in mass ra CBC w auto diff (11-26-2016 06:04) Baso % = 0.2 % 0.1-2.0 complet 017 ed 06:04 Blood = 10.6 4.8-10. complet leukocy 017 K/MM3 [...] blood 06:04 platele t mean volume austyn Mcdowell % = 8.8 % 1.7-9.3 complet 017 [...] ial cells detecti on in u Urine 11-25-2 > = 1.005-1 complet specifi 017 1.030 .030 ed c 13:05 gravity measure ment Erythro 11-25- 5-10 0 complet cytes 017 5-10 L ed detecti 13:05 rbc/hpf on in urine sedimen t Urine 11-25- = TRACE NEG complet protein 017 mg/dL [...] on by mg/dL automat ed kelley Hyaline 11-25- 5-10 NONE complet casts 017 5-10 L [...] by MARIANGEL (11-24-2016 13:30) Comment: COMMENTS TO REAR LOAD TRUCK DRIVER: COLLECTED BY PHYSICIAN MARIANGEL = 26 14-82 complet 017 U/L ed 13:30 Comment: Performed at: [facility] Comment: [id number], [place] [id number] Comment: Prison Guard Supervisor: Salvador Martínez PhD, Phone: [phone] Whole blood INR measurement (11-24-2016 13:30) Comment: COMMENTS TO REAR LOAD TRUCK DRIVER: COLLECTED BY PHYSICIAN Comment: IS PATIENT ON ANTICOAGULANTS? N Prothro 10-16-2 = 12.5 9.4-11. complet mbin 017 SECONDS [...] Ammonia measurement (11-24-2016 13:30) Comment: COMMENTS TO REAR LOAD TRUCK DRIVER: COLLECTED BY PHYSICIAN Ammonia = 17 19-54 complet 017 umoL/L ed measure 13:30 ment Gamma glutamyl transferase (GGT) measure (11-24-2016 13:30) Gamma = 147 15-85 complet glutamy 017 U/L ed l 13:30 transfe rase (GGT) measure Serum or plasma actin IgG antibody assay (11-24-2016 13:30) Comment: COMMENTS TO REAR LOAD TRUCK DRIVER: COLLECTED BY PHYSICIAN Serum = 7 0-19 [...] IgG ab (11-24-2016 13:30) Comment: COMMENTS TO REAR LOAD TRUCK DRIVER: COLLECTED BY PHYSICIAN M2 < 20.0 0.0-20. complet mitocho 017 Units 0 ed ndrial 13:30 IgG ab Comment: Negative 0.0 - 20.0 Comment: Equivocal 20.1 - 24.9 Comment: Positive >24.9 Comment: Comment: Mitochondrial (M2) Antibodies are found in 90-96% of Comment: patients with primary biliary cirrhosis. Comment: Performed at: [facility] Comment: [address], [place] [id number] Comment: Prison Guard Supervisor: Salvador Martínez PhD, Phone: [phone] Quantitative serum IgM measurement (11-24-2016 13:30) Comment: COMMENTS TO REAR LOAD TRUCK DRIVER: COLLECTED BY PHYSICIAN Quantit = 48 15-143 complet ative 017 mg/dL ed serum 13:30 IgM measure ment Comment: Performed at: [facility] Comment: [address], [place] [id number] Comment: Prison Guard Supervisor: Salvador Martínez PhD, Phone: [phone] Serum or plasma IgG measurement (mass/vo (11-24-2016 13:30) Comment: COMMENTS TO REAR LOAD TRUCK DRIVER: COLLECTED BY PHYSICIAN Serum = 1984 700-160 complet or 017 mg/dL 0 ed plasma 13:30 IgG measure ment (mass/v o Serum IgA antibody assay (11-24-2016 13:30) Comment: COMMENTS TO REAR LOAD TRUCK DRIVER: COLLECTED BY PHYSICIAN Serum = 703 61-437 complet IgA 017 mg/dL ed antibod 13:30 y assay Hepatitis B profile (11-24-2016 13:30) Comment: COMMENTS TO REAR LOAD TRUCK DRIVER: COLLECTED BY PHYSICIAN Hepatit Negativ Negativ complet [...] a HCV Nucleic Acid Amplification Comment: test ([id number]). Comment: Performed at: [facility] Comment: [id number], [place] [id number] Comment: Prison Guard Supervisor: Salvador Martínez PhD, Phone: [phone] HBcAb Negativ Negativ complet IgM 017 e e ed 13:30 Negativ e L Alk Phos Isoenzyme (11-24-2016 13:30) Serum = 438 39-117 complet or 017 IU/L ed plasma 13:30 alkalin e phospha tase austyn Comment: Performed at: [facility] Comment: [id number], [place] [id number] Comment: Prison Guard Supervisor: Salvador Martínez PhD, Phone: [phone] Serum 11-24- = 50 % 13-88 complet or 017 ed plasma 13:30 liver alkalin e phospha ta Serum = 0 % 0-18 complet or 017 ed plasma 13:30 intesti nal alkalin e phos Comment: Performed at: [facility] Comment: [id number], [place] [id number] Comment: Prison Guard Supervisor: Salvador Martínez PhD, Phone: [phone] Serum = 50 % 12-68 complet or 017 ed plasma 13:30 bone alkalin e phospha tas Comprehensive metabolic panel (11-24-2016 06:20) Serum = [...] SQUARE METERS Comment: If this patient is -[place], then multiply the Comment: result by 1.210. [...] blood 06:20 platele t mean volume austyn Mcdowell % = 10.8 1.7-9.3 complet 017 % [...] automated antibiotic susceptibility test (11-23-2016 08:25) Clindam <= 0.25 complet ycin 017 ug/ml ed [...] by minimum inhibit ory concent ration Amoxici 10-15-2 = 4 complet llin/cl 017 ug/ml ed avulana 08:22 te suscept ibility test by minimum inhibit ory concent ration Ampicil 10-15-2 <= 2 complet sukhwinder 017 ug/ml ed suscept 08:22 ibility test by minimum inhibit ory concent ration Trimeth 10-15-2 <= 20 complet oprim/s 017 ug/ml ed ulfamet 08:22 hoxazol e suscept ibility test by minimum inhibit ory concent ration Comprehensive metabolic panel (11-22-2016 05:50) Protein --2 = 6.0 6.4-8.2 complet total 017 gm/dL ed ser/wolfgang 05:50 s ALT = 25 12-78 complet (SGPT) 017 U/L ed ser/wolfgang 05:50 s Serum 11-22-2 = 29 15-37 complet or 017 U/L [...] SQUARE METERS Comment: If this patient is -[place], then multiply the Comment: result by 1.210. [...] blood 05:50 platele t mean volume austyn Mcdowell % = 6.9 % 1.7-9.3 complet 017 [...] % 0.1-2.0 complet 017 ed 05:50 Automat 11-22-2 = 0.0 0-0.2 complet ed 017 K/MM3 ed blood 05:50 basophi l count (count/ vo Blood anaerobic culture (11-21-2016 11:40) Comment: Is patient on antibiotics? N Blood [id number] complet anaerob 017 ed ic 11:40 Staphyl culture ococcus aureus SCT SAUR STAPHYL OCOCCUS AUREUS L Blood RESULTS complet anaerob 017 CALLED ed ic 11:40 TO: culture [email or web address].CAC H 7 0828 Giancarlo,Sourav chard Blood REFER complet anaerob 017 TO ed ic 11:40 AEROBIC culture BLOOD CULTURE Blood RESULTS complet anaerob 017 : ed ic 11:40 culture Aerobic bacterial blood culture (11-21-2016 11:40) Comment: Is patient on antibiotics? N Aerobic [id number] complet 017 ed bacteri 11:40 Staphyl al ococcus blood aureus culture SCT SAUR STAPHYL OCOCCUS AUREUS L Aerobic RESULTS complet 017 CALLED ed bacteri 11:40 TO: Dominique Prabhakar blood RN culture 7 0455 Paul Jenkins Aerobic RESULTS complet 017 : ed bacteri 11:40 STAPHYL al OCOCCUS blood AUREUS culture Aerobic bacterial blood culture (11-21-2016 11:40) Comment: Is patient on antibiotics? N Aerobic RESULTS complet 017 CALLED ed bacteri 11:40 TO: KJohanne Prabhakar blood RN culture 7 0450 Paul Jenkins Blood lactic acid measurement (moles/vol (11-21-2016 11:40) Blood = 1.6 0.4-2.0 complet lactic 017 mmol/L ed acid 11:40 measure ment (moles/ vol Urine culture (11-21-2016 10:55) Urine [id number] complet culture 017 07 ed 10:55 Escheri [...] Microscopic panel in Urine (11-21-2016 10:55) Bacteri 10-13-2 4+ O complet a 017 ed [Presen [...] blood 10:50 platele t mean volume austyn Mcdowell % = 5.3 % 1.7-9.3 complet 017 [...] MB (CK-M Comprehensive metabolic panel (11-21-2016 10:50) Serum = 1.5 0.2-1.0 complet or 017 mg/dL ed plasma 10:50 total bilirub in measure m Serum = 405 46-116 complet or 017 U/L ed plasma 10:50 alkalin e phospha tase austyn Serum = 2.0 3.4-5.0 complet or 017 gm/dL ed plasma 10:50 albumin measure ment (mas Serum = 0.3 1.1-1.8 complet or 017 ed plasma 10:50 albumin /globul in mass ra Protein = 8.4 6.4-8.2 complet total 017 [...] SQUARE METERS Comment: If this patient is -[place], then multiply the Comment: result by 1.210. [...] plasma 10:50 urea nitroge n measure men Lipase measurement (11-21-2016 10:50) Comment: COMMENTS TO REAR LOAD TRUCK DRIVER: PLEASE USE BLOOD ALREADY DRAWN Lipase = 128 73-393 complet measure 017 U/L ed ment 10:50 Amylase ser/plas (11-21-2016 10:50) Comment: COMMENTS TO REAR LOAD TRUCK DRIVER: PLEASE USE BLOOD ALREADY DRAWN Amylase = [...] high power field Leukocy 10-20 O complet kelely 017 wbc/hpf ed [#/volu me] in Urine Urinalysis dipstick W Reflex Microscopic panel in Urine (11-07-2016) Appeara SL CLEAR complet nce of 017 CLOUDY ed Urine Bilirub NEGATIV NEG complet in 017 E ed [Presen ce] in Urine by Test strip Erythro 09-29-2 TRACE-I NEG complet cytes 017 NTACT ed [...] Microscopic panel in Urine (10-13-2016 05:15) Appeara CLEAR CLEAR complet nce of 017 ed Urine 05:15 Bilirub NEGATIV NEG complet in 017 E ed [Presen 05:15 ce] in Urine by Test strip Erythro NEGATIV NEG complet cytes 017 E ed [Presen 05:15 ce] in Urine Color YELLOW YELLOW complet [...] YELLOW complet COLOR 013 ed 09:10 URINE 05-04-2 CLEAR CLEAR complet APPEARA 013 ed NCE 09:10 URINE --2 NEGATIV NEG complet GLUCOSE 013 E ed - 09:10 DIPSTIC K URINE -26-2 NEGATIV NEG complet BILIRUB 013 E ed IN - 09:10 DIPSTIC K URINE -26-2 NEGATIV NEG complet KETONE 013 E mg/dL ed 09:10 URINE --2 1.020 1.005-1 complet SPECIFI 013 UNK .030 ed C 09:10 GRAVITY URINE 05-04-2 NEGATIV NEG complet BLOOD 013 E ed 09:10 URINE 05-04-2 6.0 UNK 5.0-8.5 complet PH 013 ed 09:10 URINE --2 NEGATIV NEG complet PROTEIN 013 E mg/dL ed - 09:10 DIPSTIC K URINE --2 0.2 NEG complet UROBILI 013 E.U./dL ed NOGEN - 09:10 DIPSTIC K URINE 05-04-2 NEGATIV NEG complet NITRATE 013 E ed - 09:10 DIPSTIC K URINE -26-2 NEGATIV NEG complet LEUK 013 E ed ESTERAS 09:10 E URINE 05-04-2 OCC 0 complet RBC 013 rbc/hpf ed 09:10 URINE 05-04-2 OCC OCC complet SQUAMOU 013 #/hpf ed S CELLS 09:10 BASIC METABOLIC PANEL (05-04-2012 06:30) Glucose 05-04-2 92 74-106 complet 013 mg/dL ed Bld-mCn 06:30 c BUN 05-04-2 17 7-18 complet Bld-mCn 013 mg/dL ed c 06:30 Creat 05-04-2 1.1 0.8-1.3 complet SerPl-m 013 mg/dL ed Cnc 06:30 ESTIMAT 05-04-2 95 50-200 complet ED 013 ML/MIN ed CREATIN 06:30 INE CLEARAN CE GFR 05-04-2 66 Greater complet (ESTIMA 013 ML/MIN than ed ALFA) 06:30 60 Sodium 05-04-2 141 136-145 complet SerPl-s 013 mmoL/L ed Cnc 06:30 Potassi 05-04-2 3.4 3.5-5.1 complet um 013 mmoL/L ed SerPl-s 06:30 Cnc Chlorid 05-04-2 108 98-107 complet e 013 mmoL/L ed SerPl-s 06:30 Cnc CO2 05-04-2 27 21.0-32 complet SerPl-s 013 mmoL/L .0 ed Cnc 06:30 Calcium 05-04-2 7.9 8.5-10. complet 013 mg/dL 1 ed SerPl-m 06:30 Cnc CBC with AUTO DIFF (05-04-2012 06:30) WBC # 03-26-2 4.6 4.8-10. complet Bld 013 K/MM3 8 ed Auto 06:30 RBC # 26-2 3.75 4.6-6.2 complet Bld 013 M/mm3 ed Auto 06:30 Hgb --2 11.3 14.1-18 complet Bld-mCn 013 g/dL .0 [...] 013 4 ed T 06:30 VOLUME Granulo --2 70.0 % 37.0-80 complet cytes 013 .0 ed Fr Bld 06:30 Auto LYMPH % --2 22.6 % 10-50 complet 013 ed 06:30 Monocyt --2 6.1 % 1.7-9.3 complet es Fr 013 ed Bld 06:30 Auto Eosinop 05-04-2 0.8 % 0.1-12. complet hil Fr 013 0 ed Bld 06:30 Auto Basophi 05-04-2 0.5 % 0.1-2.0 complet ls Fr 013 ed Bld 06:30 Auto Granulo 05-04-2 3.2 1.3-8.0 complet cytes # 013 K/mm3 ed Bld 06:30 Auto Lymphoc 05-04-2 1.0 0.7-4.5 complet ytes Fr 013 K/mm3 ed Bld 06:30 Auto Monocyt 05-04-2 0.3 0.1-1.0 complet es # 013 K/mm3 ed Bld 06:30 Auto Eosinop 05-04-2 0.0 0.0-0.4 complet hil # 013 K/mm3 ed Bld 06:30 Auto Basophi 05-04-2 0.0 0-0.2 complet ls # 013 K/MM3 [...] SerPl-s 013 mmoL/L ed Cnc 10:30 Potassi 2 4.1 3.5-5.1 complet um 013 mmoL/L ed SerPl-s 10:30 Cnc Chlorid 05-03-2 107 98-107 complet e 013 mmoL/L ed SerPl-s 10:30 Cnc CO2 05-03-2 28 21.0-32 complet SerPl-s 013 mmoL/L .0 ed Cnc 10:30 Calcium 05-03-2 7.9 8.5-10. complet 013 mg/dL 1 ed SerPl-m 10:30 Cnc Prot 05-03-2 5.4 6.4-8.2 complet SerPl-m 013 gm/dL ed Cnc 10:30 Albumin 05-03-2 2.8 3.4-5.0 complet 013 gm/dL ed SerPl-m 10:30 Cnc Globuli 03-25-2 2.6 1.3-3.2 complet n 013 gm/dL ed Ser-mCn 10:30 c Albumin -25-2 1.1 UNK 1.1-1.8 complet /Glob 013 ed SerPl-m 10:30 Rto Bilirub -25-2 0.8 0.2-1.0 complet 013 mg/dL ed SerPl-m 10:30 Cnc AST -25-2 19 U/L 15-37 complet SerPl-c 013 ed Cnc 10:30 ALT -25-2 37 U/L 30-65 complet SerPl-c 013 ed Cnc 10:30 ALP -25-2 144 U/L 50-136 complet SerPl-c 013 ed [...] ed ULAR 10:30 HGB CONC RDW RBC 03-25-2 16.2 % 11.5-17 complet Auto 013 .5 [...] Location Performer Type Date Inpatient IMP Leroy Te[place] ([place]) 3 10:17 3 17:50 [facility]
--- OUTSIDE RECORDS SUMMARY | 2016-12-14 01:59 | External Medical Summary Rpt | CCD ---
Author Author , ELIGIO Organization ELIGIO Address Unknown Phone [email or web address] Care Team Providers Care Cook Roast Name Role Phone Anne Traore APRN, Unavailable Unavailable Anne Husain MD, Unavailable Unavailable Harinder Husain MD Purpose Continuity of Care Document - 05-03-2012 through 2016 Problems Code Diagnosis DOS Provider Status [id number] Headache [facility] [id number] Cervicogeni [facility] 401.9 [facility]ential [place] [facility] 458.8 Drug-induce [facility] [id number] Anxiety [facility] 729.82 Leg cramp [facility] 780.2 Syncope [facility] I10 ESSENTIAL (PRIMARY) [facility] I95.9 HYPOTENSION , UNSPECIFIED K74.60 UNSPECIFIED CIRRHOSIS OF LIVER M79.671 PAIN IN RIGHT FOOT N12 TUBULO-INTE RSTITIAL NEPHRITIS, NOT SPCF ACUTE OR CHRONIC N28.9 DISORDER OF KIDNEY AND URETER, UNSPECIFIED R07.9 CHEST PAIN, UNSPECIFIED R42 DIZZINESS AND GIDDINESS R60.1 GENERALIZED EDEMA W19.XXXA UNSPECIFIED FALL, INITIAL ENCOUNTER Z01.818 ENCOUNTER FOR OTHER PREPROCEDUR AL EXAMINATION Z79.01 PHYSIOGNOMIST (CURRENT) USE OF ANTICOAGULA NTS Allergies, Adverse [...] context for Comment: interpretation. Comment: Performed at: [facility] Comment: [address], [place] [id number] Comment: Special Services Coordinator: Salvador Martínez PhD, Phone: [phone] Body fluid glucose assay (12-03-2016 12:45) Body [...] 017 K/mm3 ed monocyt 06:30 e count Brown % = 16.9 1.7-9.3 complet 017 % [...] 017 K/mm3 ed monocyt 04:20 e count Brown % = 15.9 1.7-9.3 complet 017 % [...] SQUARE METERS Comment: If this patient is -Bangladeshi, then multiply the Comment: result by 1.210. [...] 017 K/mm3 ed monocyt 06:30 e count Brown % = 15.8 1.7-9.3 complet 017 % [...] 4.8-10. complet leukocy 017 K/MM3 8 ed kleley 06:30 count (number /volume ) Basic metabolic [...] SQUARE METERS Comment: If this patient is -Bangladeshi, then multiply the Comment: result by 1.210. [...] trough 06:30 Comment: CALLED TO Jeff MILLARD [facility] 11/30/16 0725 JS CREATININE (11-29-2016 09:15) Serum [...] SQUARE METERS Comment: If this patient is -Bangladeshi, then multiply the Comment: result by 1.210. [...] WILL HOLD YEAST FOR 5 DAYS. Sputum [id number] complet culture 017 5 Yeast ed 02:35 [...] body fluid (11-27-2016 12:00) Comment: COMMENTS TO PIGS FEET CLEANER: ascites BODY COMMENT complet FLUID 017 ed [...] measurement (mass/vol (11-27-2016 12:00) Comment: COMMENTS TO PIGS FEET CLEANER: ascites Body = 0.5 . complet fluid [...] fluid, total (11-27-2016 12:00) Comment: COMMENTS TO PIGS FEET CLEANER: ascites Protein = 1.7 . complet , [...] context for Comment: interpretation. Comment: Performed at: [facility] Comment: [address], [place] [id number] Comment: Special Services Coordinator: Salvador Martínez PhD, Phone: [phone] Body fluid glucose assay (11-27-2016 12:00) Comment: COMMENTS TO PIGS FEET CLEANER: ascites Body = 123 . complet fluid [...] SQUARE METERS Comment: If this patient is -Bangladeshi, then multiply the Comment: result by 1.210. [...] blood 06:04 platele t mean volume austyn Brown % = 8.8 % 1.7-9.3 complet 017 [...] by MARIANGEL (11-24-2016 13:30) Comment: COMMENTS TO PIGS FEET CLEANER: COLLECTED BY PHYSICIAN MARIANGEL = 26 14-82 complet 017 U/L ed 13:30 Comment: Performed at: [facility] Comment: [address], [place] [id number] Comment: Special Services Coordinator: Salvador Martínez PhD, Phone: [phone] Whole blood INR measurement (11-24-2016 13:30) Comment: COMMENTS TO PIGS FEET CLEANER: COLLECTED BY PHYSICIAN Comment: IS PATIENT ON [...] Ammonia measurement (11-24-2016 13:30) Comment: COMMENTS TO PIGS FEET CLEANER: COLLECTED BY PHYSICIAN Ammonia = 17 19-54 complet 017 umoL/L ed measure 13:30 ment Gamma glutamyl transferase (GGT) measure (11-24-2016 13:30) Gamma = 147 15-85 complet glutamy 017 U/L ed l 13:30 transfe rase (GGT) measure Serum or plasma actin IgG antibody assay (11-24-2016 13:30) Comment: COMMENTS TO PIGS FEET CLEANER: COLLECTED BY PHYSICIAN Serum = 7 0-19 [...] IgG ab (11-24-2016 13:30) Comment: COMMENTS TO PIGS FEET CLEANER: COLLECTED BY PHYSICIAN M2 < 20.0 0.0-20. complet mitocho 017 Units 0 ed ndrial 13:30 IgG ab Comment: Negative 0.0 - 20.0 Comment: Equivocal 20.1 - 24.9 Comment: Positive >24.9 Comment: Comment: Mitochondrial (M2) Antibodies are found in 90-96% of Comment: patients with primary biliary cirrhosis. Comment: Performed at: [facility] Comment: [address], [place] [id number] Comment: Special Services Coordinator: Salvador Martínez PhD, Phone: [phone] Quantitative serum IgM measurement (11-24-2016 13:30) Comment: COMMENTS TO PIGS FEET CLEANER: COLLECTED BY PHYSICIAN Quantit = 48 15-143 complet ative 017 mg/dL ed serum 13:30 IgM measure ment Comment: Performed at: [facility] Comment: [address], [place] [id number] Comment: Special Services Coordinator: Salvador Martínez PhD, Phone: [phone] Serum or plasma IgG measurement (mass/vo (11-24-2016 13:30) Comment: COMMENTS TO PIGS FEET CLEANER: COLLECTED BY PHYSICIAN Serum = 1984 700-160 complet or 017 mg/dL 0 ed plasma 13:30 IgG measure ment (mass/v o Serum IgA antibody assay (11-24-2016 13:30) Comment: COMMENTS TO PIGS FEET CLEANER: COLLECTED BY PHYSICIAN Serum = 703 61-437 complet IgA 017 mg/dL ed antibod 13:30 y assay Hepatitis B profile (11-24-2016 13:30) Comment: COMMENTS TO PIGS FEET CLEANER: COLLECTED BY PHYSICIAN Hepatit Negativ Negativ complet [...] a HCV Nucleic Acid Amplification Comment: test ([id number]). Comment: Performed at: [facility] Comment: [address], [place] [id number] Comment: Special Services Coordinator: Salvador Martínez PhD, Phone: [phone] HBcAb Negativ Negativ complet IgM 017 e e ed 13:30 Negativ e L Alk Phos Isoenzyme (11-24-2016 13:30) Serum = 438 39-117 complet or 017 IU/L ed plasma 13:30 alkalin e phospha tase austyn Comment: Performed at: [facility] Comment: [address], [place] [phone] Comment: Special Services Coordinator: Salvador Martínez PhD, Phone: [phone] Serum 11-24- = 50 % 13-88 complet or 017 ed plasma 13:30 liver alkalin e phospha ta Serum = 0 % 0-18 complet or 017 ed plasma 13:30 intesti nal alkalin e phos Comment: Performed at: [facility] Comment: [address], [place] [id number] Comment: Special Services Coordinator: Salvador Martínez PhD, Phone: [phone] Serum = 50 % 12-68 complet or [...] SQUARE METERS Comment: If this patient is -Bangladeshi, then multiply the Comment: result by 1.210. [...] blood 06:20 platele t mean volume austyn Brown % = 10.8 1.7-9.3 complet 017 % [...] SQUARE METERS Comment: If this patient is -Bangladeshi, then multiply the Comment: result by 1.210. [...] blood 05:50 platele t mean volume austyn Brown % = 6.9 % 1.7-9.3 complet 017 [...] Comment: Is patient on antibiotics? N Blood [id number] complet anaerob 017 ed ic 11:40 Staphyl [...] Comment: Is patient on antibiotics? N Aerobic [id number] complet 017 ed bacteri 11:40 Staphyl al [...] (moles/ vol Urine culture (11-21-2016 10:55) Urine [id number] complet culture 017 07 ed 10:55 Escheri [...] blood 10:50 platele t mean volume austyn Brown % = 5.3 % 1.7-9.3 complet 017 [...] SQUARE METERS Comment: If this patient is -Bangladeshi, then multiply the Comment: result by 1.210. [...] Lipase measurement (11-21-2016 10:50) Comment: COMMENTS TO PIGS FEET CLEANER: PLEASE USE BLOOD ALREADY DRAWN Lipase = 128 73-393 complet measure 017 U/L ed ment 10:50 Amylase ser/plas (11-21-2016 10:50) Comment: COMMENTS TO PIGS FEET CLEANER: PLEASE USE BLOOD ALREADY DRAWN Amylase = [...] Leroy Teixeiraeet ([place]) 3 10:17 3 17:50 [facility]
[2016-12-14 02:45] VITALS: BP 105/77
[2016-12-14 02:51] VITALS: BP 105/77
[2016-12-14] MEDS ORDERED: SULFACETAMIDE S15 M1 OP (04:00)
[2016-12-14] MEDS ORDERED: HALOPERIDOL 5MG.5 MG OR (04:05)
[2016-12-14] MEDS ORDERED: SCALACORT29.6 ML TP (04:07)
[2016-12-14] MEDS ORDERED: IPRATROPIUM BROM3 M2 IH (04:10)
[2016-12-14 07:21] LABS: HEMOGLOBIN 10.1 g/dL (14.1-18.0)
[2016-12-14 08:00] VITALS: BP 120/60
--- NOTE | 2016-12-14 08:13 | PHARMACY CLINIC NOTE ---
Patient Demographics Patient Demographics Admission date: 12/14/16 Date: 12/14/16 Time: 0812 Allergies Coded Allergies: No Known Allergies (07/18/15) HEIGHT- FT: 6 IN: 5.00 K.869 VTE General Information Labs: Laboratory Tests 12/14 12/13 0640 2335 Hematology Hgb (14.1 - 18.0 g/dL) 10.1 L 10.5 L Hct (42.0 - 52.0 %) 34.3 L 35.8 L Plt Count (142 - 424 K/mm3) 253 311 Disclaimer The following section includes nursing documentation that has been pulled in for pharmacy review. Patient's VTE score: 6 Patient's VTE Risk: MOD RISK Clinical trial participant? No VTE prophylaxis NQF 0371 VTE prophylaxis ordered? Yes Type of prophylaxis/treatment: ALFA at 0812
--- NOTE | 2016-12-14 08:20 | HISTORY AND PHYSICAL REPORT ---
History and Physical (FCA) Date of admission: 12/14/16 Chief complaint: Chest pain History: History of Present Illness: Mr. Wu was just discharged from [facility] last week following treatment for pneumonia and cirrhosis with decompensation. During that admission he underwent thoracentesis x1 and paracentesis x2. He was sent back to the emergency room last night from [place] when he complained of chest pain and seemed to be more short of breath. When he arrived in the emergency room he seemed to be quite anxious and dyspneic. He was worked up and his laboratory data was unremarkable except for his potassium being elevated. Repeat chest x-ray appeared to show some reaccumulation of the right pleural effusion. His white count was normal. His oxygen saturation was normal. He was admitted for observation. Once his family arrived, he calmed down and his respirations eased. Family thinks a lot of his symptoms last evening were due to anxiety. Past Medical History: Medical History: CAD? Yes (S/p stent 2009) Angina: No HI: No Hypertension? Yes Hyperlipidemia? Yes CHF? Yes DVT? No PE? No COPD? No Asthma? No Anemia? Yes GERD? Yes GI Bleed? Yes (presumed small bowel) Hernia? No Thyroid Problems? No Hypothyroidism? No CVA? No Seizures? No Diabetes? No Renal Insuffiency? Yes UTI? No Stones? No GB Disease: No Nephritic Syndrome? No Asplenia? No Hepatitis? No Sickle Cell Disease? No Arthritis? No Cataracts? Yes Glaucoma? No MRSA? No TB? No Anxiety? Yes Depression? No Cancer? No More? Yes Additional hx: 1. SHARKO FOOT 2. AFIB 3. TIA 4. MENTAL RETARDATION Additional medical history: Mental retardation. Cirrhosis of liver Surgical history: Previous Surgery?Y RIGHT KNEE APPY DULCE CATARACTS CARDIAC CATH WITH STENT Medications: Active Scripts Ferrous Sulfate (Ferrous Sulfate 325MG) 325 MG PO BID #30 TAB Ref 4 Prov: 09/04/15 ASPIRIN (Aspirin) 81 MG PO DAILY #30 TABLET Ref 2 Prov: 09/04/15 Furosemide (Lasix 40MG) 40 MG PO DAILY #30 TAB Ref 3 Prov: 12/04/16 NYSTATIN (Nystatin Topical Powder 30GM) 0 GM TP QID #1 POW Ref 2 Prov: 12/04/16 Famotidine 20 MG PO DAILY #30 TAB Ref 2 Prov: 12/04/16 Spironolactone (Aldactone 100MG) 100 MG PO DAILY #30 TAB Ref 2 Prov: 12/04/16 Diltiazem Hcl (Cardizem Generic 60MG Tab) 60 MG OR TID #90 TAB Ref 2 Prov: 12/04/16 Potassium Chloride (Klor-Con M20) 40 MEQ PO BID #60 TAB Ref 2 Prov: 12/04/16 Reported Medications Clopidogrel Bisulfate (Plavix) 75 MG PO DAILY #30 TAB Ref 2 Cyanocobalamin (Vitamin B-12) (B-12) 500 MCG PO DAILY Metoprolol Tartrate 25 MG PO BID Acetaminophen (Acetaminophen Extra Strength) 1,000 MG PO Q6HP PRN PAIN SULFACETAMIDE 10% SOLN (Sulfacetamide Sodium 10% Ophth Soln) 1 DROP OP QID Haloperidol (Haloperidol 5MG. Tablet) 5 MG OR QHS Hydrocortisone (Scalacort) 30 ML TP BID IPRATROPIUM/ALBUTEROL SULFATE (Iprat-Albut 0.5-3(2.5) MG/3 Ml) 3 ML IH TID CHOLECALCIFEROL (VITAMIN D3) (Vitamin D) 1 TAB PO DAILY Risperidone (Risperdal 0.5 Mg Tablet) 0.5 MG PO BID Lorazepam (Ativan) 0.5 MG PO QID PRN ANXIETY Allergies: Coded Allergies: No Known Allergies (07/18/15) Family History: Family history: Postive for: CAD. Social History: Smoking Hx Tobacco: No Smoker: Never Smoker Type: N/A Packs/day: N/A Are you exposed to second hand No Alcohol: Alcohol: No Hx of Drug Use: Drug Use? No Patien't marital status is: single Patient's support system is: excellent Review of Systems: Patient unresponsive? No Constitutional Positive for: weak. ENT No: ear ache, nose bleed, nasal congestion, sore throat. Cardiovascular Positive for: WILLIS, chest pain. No: edema, palpitations. Respiratory Positive for: dyspnea on exertion, shortness of air, non-productive. No: hemoptysis. GI Positive for: abdominal pain. No: constipation, diarrhea, melena, vomitting. (male) No: frequency, urgency. Skin No: bruising, itching, rash. Neurological No: change in LOC, confusion, headache, slurred speech, syncope. Immune/allergy No: hives, itching. Eyes No: blurry vision, vision loss. Musculoskeletal No: extremity pain, extremity swelling, joint pain. Heme No: bleeding, bruising. Endocrine No: cold intolerance. Psychiatric Positive for: anxious. Physical Exam: Vital signs: 1ST Vital Signs Result Date Time Pulse Ox 94 12/13 2256 B/P 180/109 12/13 2256 O2 Flow Rate 3 12/13 2256 Temp 99.2 12/13 2256 Pulse 144 12/13 2256 Resp 40 12/13 2256 O2 Delivery OXYGEN 12/14 250 Exam: General appearance: alert, no acute distress Eyes: anicteric ENT: mucous membranes moist Neck: no carotid bruit, supple Cardiovascular: heart tones distant, irregularly irregular Respiratory: diminished breath sounds right lung ABD: slightly distended but soft with bowel sounds present. Mild diffuse tenderness. Apparent ascites noted. Extremities: moves all, warm, decreased range of motion of knees Skin: dry, normal color, warm Neuro: no focal deficit Lab data: Labs: Laboratory Tests 12/14/16 0640: Sodium 135 L, Potassium 5.2 H, Chloride 103, Carbon Dioxide 26, BUN 35 H, Creatinine 1.5 H, Estimated Creat Clear 56, Estimated GFR (MDRD) 46, Glucose 128 H, Calcium 8.8, WBC 7.3, RBC 3.95 L, Hgb 10.1 L, Hct 34.3 L, MCV 86.8, RDW 18.9 H, Plt Count 253, MPV 7.3 L, Gran % 73.2, Gran # 5.4, Lymphocytes % 14.0, Monocytes % 11.7 H, Eosinophils % 0.2, Basophils % 0.8, Lymphocytes # 1.0 , Monocytes # 0.9, Eosinophils # 0.0, Basophils # 0.1, PUBS MCHC 29.5 L, MCH 25.6 L 12/13/165: Lactic Acid 1.5 12/13/162334: Sodium 134 L, Potassium 5.9 H, Chloride 102, Carbon Dioxide 27, BUN 34 H, Creatinine 1.5 H, Estimated Creat Clear 73, Estimated GFR (MDRD) 46, Glucose 119 H, Calcium 8.7, Total Bilirubin 0.6, AST 47 H, ALT 37, Alkaline Phosphatase 530 H, B-Natriuretic Peptide 402 H, Total Protein 7.4, Albumin 1.4 L, Globulin 6.0 H, Albumin/Globulin Ratio 0.2 L, WBC 10.3, RBC 4.12 L, Hgb 10.5 L, Hct 35.8 L, MCV 86.8, RDW 18.9 H, Plt Count 311, MPV 7.1 L, Gran % 73.6, Gran # 7.6, Lymphocytes % 12.1, Monocytes % 12.1 H, Eosinophils % 1.3, Basophils % 0.9, Lymphocytes # 1.2, Monocytes # 1.3 H, Eosinophils # 0.1, Basophils # 0.1, PUBS MCHC 29.3 L, MCH 25.4 L Microbiology 12/13 2334 BLOOD: Anaerobic Blood Culture - RECD 12/13 2334 BLOOD: Aerobic Blood Culture - RECD 12/13 2334 BLOOD: Anaerobic Blood Culture - RECD 12/13 2334 BLOOD: Aerobic Blood Culture - RECD Diagnosis(es): 1. Pleural effusion on right 2. Chest pain 3. Anxiety Status: Chronic 4. Essential hypertension Status: Chronic 5. Cirrhosis Status: Acute 6. Ascites 7. Weakness Status: Acute 8. Chronic atrial fibrillation Plan: He is admitted for observation of his respiratory status. Repeat chest x-ray pending today to compare with previous x-ray and see if his pleural effusion is rapidly reaccumulating. May need to consider repeat thoracentesis. His aspirin and Plavix will be held anticipating a possible procedure. Will continue remainder of his medications. at 1156
--- NOTE | 2016-12-14 09:09 | RADIOLOGY REPORT PS360 ---
CHEST-PORTABLE HISTORY: pleural effusion Patient Age: 71 years: Male Ordering Physician: Harinder Husain MD TECHNIQUE: AP portable CXR COMPARISON :12/13/2016 & 12/04/2016. FINDINGS PICC line enters from right. . Tip at SVC. Prominent right pleural effusion is similar to yesterday CXR, but is significant change significantly from 12/04/2016 CXR.. The pleural fluid has replaced the pneumothorax Today Prominent pleural fluid the right lung] including fluid along the lateral right chest & overlying apex as well as medial to the right upper lobe. . Fluid also seen at right base extending over right hemidiaphragm associated with the long-standing consolidation at right lung base Overall findings yield significant volume loss right lung which may have progressed even suggested. Today's technique is slightly different making but certainly no improvement and if anything slight progression of features. . Left lung clear unremarkable. Cardiomegaly noted. Tortuous aorta. IMPRESSION Findings similar to yesterday's study with prominent pleural effusion on right surrounding the right lung. With airspace disease and consolidation at right midlung and right base. Features yield volume loss of the underlying aerated lung on right Stable to perhaps Perhaps minor incremental progression overall findings since yesterday. Left lung clear. Cardiomegaly.
--- NOTE | 2016-12-14 09:13 | RADIOLOGY REPORT PS360 ---
CHEST-PORTABLE HISTORY: pleural effusion Patient Age: 71 years: Male Ordering Physician: Harinder Husain MD TECHNIQUE: AP portable CXR COMPARISON :12/04/2016. FINDINGS PICC line enters from right. . Tip at SVC. Good position Prominent right pleural effusion has developed with significant change since from 12/04/2016 CXR.. The now generous pleural fluid has not only replaced the pneumothorax but has additionally filled the pleural space .. Today Prominent pleural fluid surrounds right lung] including fluid along the lateral right chest & overlying apex as well as medial to the right upper lobe. . Fluid also seen at right base extending over right hemidiaphragm associated with the long-standing consolidation at right lung base. Features only obscure the right hemidiaphragm and partially obscure right heart border. Overall findings progressive volume loss right lung.. . Left lung clear unremarkable. Cardiomegaly noted. Tortuous aorta. IMPRESSION Findings similar to yesterday's study with prominent pleural effusion on right surrounding the right lung. With airspace disease and consolidation at right midlung and right base. Features yield volume loss of the underlying aerated lung on right Stable to perhaps Perhaps minor incremental progression overall findings since yesterday. Left lung clear. Cardiomegaly
[2016-12-14 15:44] VITALS: BP 106/63
[2016-12-14 19:36] VITALS: BP 124/75
[2016-12-15 04:24] VITALS: BP 108/72
[2016-12-15 07:28] LABS: HEMOGLOBIN 9.8 g/dL (14.1-18.0); LYMPH # 1.2 K/mm3 (0.7-4.5); LYMPH % 8.7 % (10-50)
[2016-12-15 08:08] VITALS: BP 111/70
--- NOTE | 2016-12-15 09:27 | ACUTE CARE PROGRESS NOTE (QUA) ---
Progress Notes Subjective Date 12/15/16 Time 0925 Note No new complaints today. Patient is sleeping, spoke with his setter/career technical counselor. Objective Findings Laboratory Tests 12/15/16 0710: Sodium 134 L, Potassium 4.4, Chloride 103, Carbon Dioxide 27, BUN 35 H, Creatinine 1.6 H, Estimated Creat Clear 52, Estimated GFR (MDRD) 43, Glucose 93 , Calcium 8.4 L, WBC 13.9 H, RBC 3.80 L, Hgb 9.8 L, Hct 33.0 L, MCV 86.8, RDW 18.8 H, Plt Count 255, MPV 7.5, Gran % 74.6, Gran # 10.4 H, Lymphocytes % 8.7 L, Monocytes % 15.5 H, Eosinophils % 0.8, Basophils % 0.4, Lymphocytes # 1.2, Monocytes # 2.2 H, Eosinophils # 0.1, Basophils # 0.1, PUBS MCHC 29.6 L, MCH 25.7 L Vital Signs Date Time Temp Pulse Resp B/P Pulse O2 O2 Flow FiO2 Ox Delivery Rate 12/15 0808 97.9 97 16 111/70 99 OXYGEN 12/15 0640 2 12/15 0628 2 12/15 0521 2 12/15 0424 2 12/15 0424 97.6 82 18 108/72 99 OXYGEN 2 12/15 0305 2 12/15 0303 91 ROOM AIR 12/15 0228 2 12/15 0129 2 12/15 0030 2 12/14 2301 2 12/14 2159 2 12/14 2130 2 12/14 193 2 12/14 193 2 12/14 193 97.8 89 18 124/75 100 2 12/14 193 97.8 89 18 124/75 100 OXYGEN 2 12/14 1850 2 12/14 1700 2 12/14 1551 2 12/14 1544 98.3 70 20 106/63 97 OXYGEN 12/14 1300 2 12/14 1100 2 I&O Past 24 Hrs-ending at 0700 12/15 0700 Intake Total 480 Output Total Balance 480 Last VS-Temp:97.9 B/P:111/70 Pulse:97 Resp:16 SaO2:99 OXYGEN Last weight lbs:198 oz:2 K.869 Method:Bed Scales Exam General appearance: sleeping, awakens to voice. Cardiovascular: regular rate & rhythm ABD: normal bowel sounds, soft, no tenderness Assessment/Plan Problem List 1. Pleural effusion on right 2. Chest pain 3. Anxiety Status: Chronic 4. Essential hypertension Status: Chronic 5. Cirrhosis Status: Acute 6. Ascites 7. Weakness Status: Acute 8. Chronic atrial fibrillation This inpt stay is expected to cross 2 MNs from start of care Yes Comments: Recheck CXR today. at 8272
--- NOTE | 2016-12-15 13:08 | RADIOLOGY REPORT PS360 ---
CHEST-PORTABLE HISTORY: Follow-up pleural effusion/pneumonia PLEURAL EFFUSION ORDERING PHYSICIAN: Harinder Husain MD PATIENT AGE: 71 years COMPARISON: 12/14/2016 FINDINGS: Cardiomegaly without failure.. Moderate sized right pleural effusion with right-sided consolidation with volume loss once again noted not significant changed. PICC line remains in place. Left lung remains clear. There are old right sixth and seventh rib fractures. IMPRESSION: Overall no change right-sided pleural effusion with pneumonia and right-sided volume loss.
[2016-12-15 16:30] VITALS: BP 100/62
[2016-12-15 20:00] VITALS: BP 105/55
[2016-12-16 04:04] VITALS: BP 101/63
[2016-12-16 07:45] VITALS: BP 109/73
[2016-12-16 08:31] LABS: HEMOGLOBIN 9.1 g/dL (14.1-18.0); LYMPH # 1.1 K/mm3 (0.7-4.5); LYMPH % 12.1 % (10-50)
[2016-12-16 10:13] LABS: NEUTROPHILS 73 % (42-76)
--- NOTE | 2016-12-16 13:11 | RADIOLOGY REPORT PS360 ---
LOWER LEG-LT HISTORY: Pain ORDERING PHYSICIAN: Harinder Husain MD PATIENT AGE: 71 years COMPARISON: None FINDINGS: There are severe osteoarthritic changes of the knee including all 3 compartments. Generalized vascular calcifications are present. No fracture or dislocation. No lytic or blastic change. There is generalized osteopenia IMPRESSION: Severe osteoarthritis of the left knee with generalized osteopenia otherwise negative left lower extremity
[2016-12-16] MEDS ORDERED: SUDOGEST30 MG PO (13:25)
[2016-12-16] MEDS ORDERED: BENZONATATE100 MG PO (13:27)
[2016-12-16] MEDS ORDERED: GUAIFENESIN DM118 ML PO (13:27)
--- NOTE | 2016-12-16 13:29 | DISCHARGE SUMMARY STANDARD ---
Discharge Summary ([facility]CA2) Date of admission: 12/15/16 Date of discharge: 12/16/16 Problem List: 1. Pleural effusion on right 2. Chest pain 3. Anxiety 4. Essential hypertension 5. Cirrhosis 6. Ascites 7. Weakness 8. Chronic atrial fibrillation History of present illness: Mr. Wu was just discharged from [facility] last week following treatment for pneumonia and cirrhosis with decompensation. During that admission he underwent thoracentesis x1 and paracentesis x2. He was sent back to the emergency room thid time from [place] when he complained of chest pain and seemed to be more short of breath. When he arrived in the emergency room he seemed to be quite anxious and dyspneic. He was worked up and his laboratory data was unremarkable except for his potassium being elevated. Repeat chest x-ray appeared to show some reaccumulation of the right pleural effusion. His white count was normal. His oxygen saturation was normal. He was admitted for observation. Once his family arrived, he calmed down and his respirations eased. Family thinks a lot of his symptoms were due to anxiety. Hospital Course: He was admitted for observation. He had no further respiratory distress during the admission but has developed a bit more cough which is mostly nonproductive. Serial chest x-rays showed a slight accumulation of his previous pleural effusion but was stable during the admission and was not deemed significant to risk another thoracentesis. He has persistent consolidation of the RLL from his previous pneumonia as well as atelectasis from his pleural effusion. Will conitnue on aerosols. He has remained afebrile. His white count did elevate one day to 13,000 but the day of discharge was back down to normal. He has had persistent complaint of pain in left lower extremity with movement. Clinical exam was unremarkable other than degenerative joint disease of the left knee. An x-ray was obtained of the lower leg and showed the severe arthritis of his knee but nothing acute Laboratory data this visit: Laboratory Tests 12/13/16 2335: B-Natriuretic Peptide 402 12/13/16 2335: Lactic Acid 1.5 12/16/16 0637: Sodium 134, Potassium 4.5, Chloride 102, Carbon Dioxide 28, BUN 38, Creatinine 1.6, Estimated Creat Clear 54, Estimated GFR (MDRD) 43, Glucose 86, Calcium 8.1, Total Bilirubin 0.4, AST 42, ALT 37, Alkaline Phosphatase 453, Total Protein 6.3 , Albumin 1.2, Globulin 5.1, Albumin/Globulin Ratio 0.2, WBC 9.0, RBC 3.55, Hgb 9.1, Hct 31.5, MCV 88.7, RDW 18.4, Plt Count 215, MPV 7.7, Gran % 63.5, Gran # 5.7, Total Counted 100, Lymphocytes % 12.1, Monocytes % 21.5, Eosinophils % 2.0, Basophils % 0.9, Neutrophils 73, Lymphocytes (Manual) 9, Lymphocytes # 1.1, Monocytes (Manual) 17, Monocytes # 1.9, Eosinophils # 0.2, Basophils # 0.1, Basophils # (Manual) 1, Platelet Estimate NORMAL, Hypochromasia 1+, PUBS MCHC 28.7, MCH 25.5 Imaging: MPRESSION Findings similar to yesterday's study with prominent pleural effusion on right surrounding the right lung. With airspace disease and consolidation at right midlung and right base. Features yield volume loss of the underlying aerated lung on right Stable to perhaps Perhaps minor incremental progression overall findings since yesterday. Left lung clear. Cardiomegaly. Discharge medications: Stop taking the following medications: SULFACETAMIDE 10% SOLN (Sulfacetamide Sodium 10% Ophth Soln) 15 ML DROPS OPHTHALMIC FOUR TIMES A DAY Continue taking these medications: Clopidogrel Bisulfate (Plavix) 75 MG TABLET 75 MILLIGRAM ORAL DAILY Qty = 30 CHOLECALCIFEROL (VITAMIN D3) (Vitamin D) 2,000 UNIT TABLET 1 TABLET ORAL DAILY Ferrous Sulfate (Ferrous Sulfate 325MG) 325 MG TABLET 325 MILLIGRAM ORAL TWICE A DAY Qty = 30 ASPIRIN (Aspirin) 81 MG TAB.CHEW 81 MILLIGRAM ORAL DAILY Qty = 30 Risperidone (Risperdal 0.5 Mg Tablet) 0.5 MG TABLET 0.5 MILLIGRAM ORAL TWICE A DAY Lorazepam (Ativan) 0.5 MG TABLET 0.5 MILLIGRAM ORAL FOUR TIMES A DAY as needed for ANXIETY Acetaminophen (Acetaminophen Extra Strength) 500 MG TABLET 1,000 MILLIGRAM ORAL EVERY 6 HOURS NEEDED as needed for PAIN Cyanocobalamin (Vitamin B-12) (B-12) 500 MCG TABLET 500 MICROGRAM ORAL DAILY Metoprolol Tartrate (Metoprolol Tartrate) 25 MG TABLET 25 MILLIGRAM ORAL TWICE A DAY NYSTATIN (Nystatin Topical Powder 30GM) 30 GM POWDER 0 GRAM TOPICAL FOUR TIMES A DAY Qty = 1 Famotidine (Famotidine) 20 MG TABLET 20 MILLIGRAM ORAL DAILY Qty = 30 Furosemide (Lasix 40MG) 40 MG TABLET 40 MILLIGRAM ORAL DAILY Qty = 30 Spironolactone (Aldactone 100MG) 100 MG TABLET 100 MILLIGRAM ORAL DAILY Qty = 30 Diltiazem Hcl (Cardizem Generic 60MG Tab) 60 MG TABLET 60 MILLIGRAM BY MOUTH THREE TIMES A DAY Qty = 90 Potassium Chloride (Klor-Con M20) 20 MEQ TAB.ER.PRT 40 Milliequivalent ORAL TWICE A DAY Qty = 60 Haloperidol (Haloperidol 5MG. Tablet) 5 MG TABLET 5 MILLIGRAM BY MOUTH AT BEDTIME NIGHTLY Hydrocortisone (Scalacort) 29.6 ML LOTION 30 MILLILITER TOPICAL TWICE A DAY IPRATROPIUM/ALBUTEROL SULFATE (Iprat-Albut 0.5-3(2.5) MG/3 Ml) 3 ML AMPUL.NEB 3 MILLILITER INHALATION THREE TIMES A DAY Start taking the following new medications: PSEUDOEPHEDRINE HCL (Sudogest 30MG) 30 MG TABLET 30 MILLIGRAM ORAL THREE TIMES A DAY Qty = 30 No Refills GUAIFENESIN/DEXTROMETHORPHAN (Tussin Dm Cough Syrup) 120 ML SYRUP 10 MILLILITER ORAL EVERY 6 HOURS NEEDED as needed for COUGH Qty = 240 No Refills BENZONATATE (Benzonatate) 100 MG CAPSULE 100 MILLIGRAM ORAL FOUR TIMES A DAY NEEDED as needed for COUGH Qty = 30 No Refills Disposition: He is felt to be stable for discharge back to [facility]. Medications will be as outlined above. Will continue attempts at physical therapy although historically has not been very motivated. He has a pending appointment with Dr. Lloyd regarding his cirrhosis. at [id number]
[2016-12-16 15:58] VITALS: BP 92/54
== END 2016-12-16 16:30 | DRG 188 ==
LOC: ER 22:56 → 2ND 12-14 01:44
PROVIDERS: Emergency Medicine; Family Medicine
DX: J90 Pleural effusion, not elsewhere classified (principal); I48.2 Chronic atrial fibrillation; K74.60 Unspecified cirrhosis of liver; I10 Essential (primary) hypertension; Z95.5 Presence of coronary angioplasty implant and graft; I25.10 Atherosclerotic heart disease of native coronary artery without angina pectoris; M17.12 Unilateral primary osteoarthritis, left knee
CPT/HCPCS: G0378

== ENCOUNTER 2016-12-27 16:52 | Inpatient (IN) | payer OTHER, MEDICARE ==
[2016-12-27] VITALS (7 sets, daily range): BP systolic 87–142; BP diastolic 7–67
[~2016-12-27] VITALS: Ht 195.6 cm; Wt 97.1 kg
[~2016-12-27 16:52] MED LIST changes: +BENZONATATE100 MG PO; +GUAIFENESIN DM118 ML PO; +HALOPERIDOL 5MG.5 MG OR; +IPRATROPIUM BROM3 M2 IH; +SCALACORT29.6 ML TP; +SUDOGEST30 MG PO; +SULFACETAMIDE S15 M1 OP
--- OUTSIDE RECORDS SUMMARY | 2016-12-27 17:23 | External Medical Summary Rpt | CCD ---
Author Author , ELIGIO Organization ELIGIO Address Unknown Phone [email or web address] Care Team Providers Care Vocational Instructor Name Role Phone Anne Traore APRN, Unavailable Unavailable Anne Husain MD, Unavailable Unavailable Harinder Husain MD Purpose Continuity of Care Document - 05-03-2012 through 2016 Problems Code Diagnosis DOS Provider Status [id number] Headache [facility] [id number] Cervicogeni [facility] 401.9 Essential [place] hypertensio [facility] 458.8 Drug-induce [facility] [id number] Anxiety [facility] 729.82 Leg cramp [facility] 780.2 Syncope [facility] D64.9 ANEMIA, UNSPECIFIED E87.5 HYPERKALEMI A I10 ESSENTIAL (PRIMARY) HYPERTENSIO N I48.91 UNSPECIFIED ATRIAL FIBRILLATIO N I95.9 HYPOTENSION , UNSPECIFIED J90 PLEURAL EFFUSION, NOT ELSEWHERE CLASSIFIED K74.60 UNSPECIFIED CIRRHOSIS OF LIVER M79.671 PAIN IN RIGHT FOOT N12 TUBULO-INTE RSTITIAL NEPHRITIS, NOT SPCF ACUTE OR CHRONIC N28.9 DISORDER OF KIDNEY AND URETER, UNSPECIFIED R07.9 CHEST PAIN, UNSPECIFIED R42 DIZZINESS AND GIDDINESS R60.1 GENERALIZED EDEMA W19.XXXA UNSPECIFIED FALL, INITIAL ENCOUNTER Z01.818 ENCOUNTER FOR OTHER PREPROCEDUR AL EXAMINATION 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 NTS Allergies, Adverse [...] Order Detail nces retati t Range on Comprehensive metabolic panel (12-16-2016 06:37) Serum = 42 15-37 complet or 017 U/L ed plasma 06:37 asparta te aminotr ansfera ALT = 37 12-78 complet (SGPT) 017 U/L ed ser/wolfgang 06:37 s Protein = 6.3 6.4-8.2 complet total 017 gm/dL ed ser/wolfgang 06:37 s Serum = 0.2 1.1-1.8 complet or 017 ed plasma 06:37 albumin /globul in mass ra Serum = 1.2 3.4-5.0 complet or 017 gm/dL ed plasma 06:37 albumin measure ment (mas Serum = 453 46-116 complet or 017 U/L ed plasma 06:37 alkalin e phospha tase austyn Serum = 0.4 0.2-1.0 complet or 017 mg/dL ed plasma 06:37 total bilirub in measure m Serum = 38 7-18 complet or 017 mg/dL ed plasma 06:37 urea nitroge n measure men Serum = 8.1 8.5-10. complet or 017 mg/dL 1 ed plasma 06:37 calcium measure ment (mas Serum = 102 98-107 complet or 017 mmoL/L ed plasma 06:37 chlorid e measure ment (mo Carbon = 28 21.0-32 complet dioxide 017 mmoL/L .0 ed 06:37 measure ment Serum = 1.6 0.70-1. complet or 017 mg/dL 30 ed plasma 06:37 creatin ine measure ment ( Estimat = 54 50-200 complet ion of 017 ML/MIN ed creatin 06:37 ine renal clearan ce Estimat = 43 >60 complet ed 017 ML/MIN ed glomeru 06:37 lar filtrat ion rate (GF Comment: REFERENCE RANGE: >60 ML/MIN/1.73 SQUARE METERS Comment: If this patient is -[place], then multiply the Comment: result by 1.210. Serum = 5.1 1.3-3.2 complet globuli 017 gm/dL ed n 06:37 measure ment (mass/v olume) Serum = 86 74-106 complet or 017 mg/dL ed plasma 06:37 glucose measure ment (mas Serum = 4.5 3.5-5.1 complet potassi 017 mmoL/L ed um 06:37 measure ment Serum = 134 136-145 complet sodium 017 mmoL/L ed measure 06:37 ment CBC w auto diff (12-16-2016 06:37) Mean = 25.5 27-31.2 complet corpusc 017 pg ed ular 06:37 hemoglo bin (MCH) determ Automat = 28.7 31.8-35 complet ed 017 g/dl .4 ed erythro 06:37 cyte mean corpusc ular h Automat = 88.7 82.2-97 complet ed 017 fl .8 ed erythro 06:37 cyte mean corpusc ular v Absolut = 1.9 0.1-1.0 complet e 017 K/mm3 ed monocyt 06:37 e count [place] % = 21.5 1.7-9.3 complet 017 % ed 06:37 Automat = 7.7 7.4-10. complet ed 017 fl 4 ed blood 06:37 platele t mean volume austyn Blood = 215 142-424 complet platele 017 K/mm3 ed t count 06:37 Red = 3.55 4.6-6.2 complet blood 017 M/mm3 ed cell 06:37 count Automat = 18.4 11.5-17 complet ed 017 % .5 ed erythro 06:37 cyte distrib ution width Blood = 9.0 4.8-10. complet leukocy 017 K/MM3 8 ed kelley 06:37 count (number /volume ) Automat = 0.1 0-0.2 complet ed 017 K/MM3 ed blood 06:37 basophi l count (count/ vo Baso % = 0.9 % 0.1-2.0 complet 017 ed 06:37 Automat = 0.2 0.0-0.4 complet ed 017 K/mm3 ed blood 06:37 eosinop hil count Automat = 2.0 % 0.1-12. complet ed 017 0 ed blood 06:37 eosinop hils/10 0 leukocy t Blood = 5.7 1.3-8.0 complet granulo 017 K/mm3 ed cytes 06:37 automat ed count (numb Granulo = 63.5 37.0-80 complet cyte 017 % .0 ed percent 06:37 age Blood = 31.5 42.0-52 complet hematoc 017 % .0 ed rit 06:37 (volume fractio n) Blood = 9.1 14.1-18 complet hemoglo 017 g/dL .0 ed bin 06:37 measure ment (mass/v olum Absolut = 1.1 0.7-4.5 complet e 017 K/mm3 ed lymphoc 06:37 yte count Lymphoc = 12.1 10-50 complet yte 017 % ed count, 06:37 blood, automat ed Differential panel, method unspecified - (12-16-2016 06:37) Basophi = 1 % 0-1 complet l % 017 ed 06:37 Hypochr 1+ 1+ L complet omatic 017 ed red 06:37 blood cell detecti on Neutrop = 73 % 42-76 complet hil 017 ed count 06:37 Blood = 100 complet total 017 #CELLS ed cell 06:37 count LYMPH 9 % 10-50 complet 017 ed 06:37 Monocyt = 17 % 2-9 complet e % 017 ed 06:37 Platele NORMAL complet t 017 NORMAL ed estimat 06:37 L e Differential panel, method unspecified - (12-16-2016 06:37) Hypochr 1+ complet omia 017 ed [Presen 06:37 ce] in Blood LYMPH 9 % 10% - Low complet 017 50% ed 06:37 Platele NORMAL complet ts 017 ed [Presen 06:37 ce] in Blood by Light microsc opy CBC w auto diff (12-15-2016 07:10) Automat = 0.1 0-0.2 complet ed 017 K/MM3 ed blood 07:10 basophi l count (count/ vo Baso % = 0.4 % 0.1-2.0 complet 017 ed 07:10 Automat = 0.1 0.0-0.4 complet ed 017 K/mm3 ed blood 07:10 eosinop hil count Automat = 0.8 % 0.1-12. complet ed 017 0 ed blood 07:10 eosinop hils/10 0 leukocy t Blood = 10.4 1.3-8.0 complet granulo 017 K/mm3 ed cytes 07:10 automat ed count (numb Granulo = 74.6 37.0-80 complet cyte 017 % .0 ed percent 07:10 age Blood = 33.0 42.0-52 complet hematoc 017 % .0 ed rit 07:10 (volume fractio n) Blood = 9.8 14.1-18 complet hemoglo 017 g/dL .0 ed bin 07:10 measure ment (mass/v olum Absolut = 1.2 0.7-4.5 complet e 017 K/mm3 ed lymphoc 07:10 yte count Automat = 18.8 11.5-17 complet ed 017 % .5 ed erythro 07:10 cyte distrib ution width Blood = 13.9 4.8-10. complet leukocy 017 K/MM3 8 ed kelley 07:10 count (number /volume ) Lymphoc = 8.7 % 10-50 complet yte 017 ed count, 07:10 blood, automat ed Mean = 25.7 27-31.2 complet corpusc 017 pg ed ular 07:10 hemoglo bin (MCH) determ Automat = 29.6 31.8-35 complet ed 017 g/dl .4 ed erythro 07:10 cyte mean corpusc ular h Automat = 86.8 82.2-97 complet ed 017 fl .8 ed erythro 07:10 cyte mean corpusc ular v Absolut = 2.2 0.1-1.0 complet e 017 K/mm3 ed monocyt 07:10 e count [place] % = 15.5 1.7-9.3 complet 017 % ed 07:10 Automat 2 = 7.5 7.4-10. complet ed 017 fl 4 ed blood 07:10 platele t mean volume austyn Blood = 255 142-424 complet platele 017 K/mm3 ed t count 07:10 Red = 3.80 4.6-6.2 complet blood 017 M/mm3 ed cell 07:10 count Basic metabolic panel (12-15-2016 07:10) Serum 2 = 35 7-18 complet or 017 mg/dL ed plasma 07:10 urea nitroge n measure men Serum = 8.4 8.5-10. complet or 017 mg/dL 1 ed plasma 07:10 calcium measure ment (mas Serum = 103 98-107 complet or 017 mmoL/L ed plasma 07:10 chlorid e measure ment (mo Carbon = 27 21.0-32 complet dioxide 017 mmoL/L .0 ed 07:10 measure ment Serum 2 = 1.6 0.70-1. complet or 017 mg/dL 30 ed plasma 07:10 creatin ine measure ment ( Estimat = 52 50-200 complet ion of 017 ML/MIN ed creatin 07:10 ine renal clearan ce Estimat = 43 >60 complet ed 017 ML/MIN ed glomeru 07:10 lar filtrat ion rate (GF Comment: REFERENCE RANGE: >60 ML/MIN/1.73 SQUARE METERS Comment: If this patient is -[place], then multiply the Comment: result by 1.210. Serum = 93 74-106 complet or 017 mg/dL ed plasma 07:10 glucose measure ment (mas Serum 2 = 4.4 3.5-5.1 complet potassi 017 mmoL/L ed um 07:10 measure ment Serum = 134 136-145 complet sodium 017 mmoL/L ed measure 07:10 ment CBC w auto diff (12-14-2016 06:40) Automat = 0.1 0-0.2 complet ed 017 K/MM3 ed blood 06:40 basophi l count (count/ vo Baso % = 0.8 % 0.1-2.0 complet 017 ed 06:40 Automat = 0.0 0.0-0.4 complet ed 017 K/mm3 ed blood 06:40 eosinop hil count Automat = 0.2 % 0.1-12. complet ed 017 0 ed blood 06:40 eosinop hils/10 0 leukocy t Blood = 5.4 1.3-8.0 complet granulo 017 K/mm3 ed cytes 06:40 automat ed count (numb Granulo = 73.2 37.0-80 complet cyte 017 % .0 ed percent 06:40 age Blood = 34.3 42.0-52 complet hematoc 017 % .0 ed rit 06:40 (volume fractio n) Blood = 10.1 14.1-18 complet hemoglo 017 g/dL .0 ed bin 06:40 measure ment (mass/v olum Absolut = 1.0 0.7-4.5 complet e 017 K/mm3 ed lymphoc 06:40 yte count Lymphoc = 14.0 10-50 complet yte 017 % ed count, 06:40 blood, automat ed Mean = 25.6 27-31.2 complet corpusc 017 pg ed ular 06:40 hemoglo bin (MCH) determ Automat = 29.5 31.8-35 complet ed 017 g/dl .4 ed erythro 06:40 cyte mean corpusc ular h Automat = 86.8 82.2-97 complet ed 017 fl .8 ed erythro 06:40 cyte mean corpusc ular v Absolut = 0.9 0.1-1.0 complet e 017 K/mm3 ed monocyt 06:40 e count [place] % = 11.7 1.7-9.3 complet 017 % ed 06:40 Automat = 7.3 7.4-10. complet ed 017 fl 4 ed blood 06:40 platele t mean volume austyn Blood = 253 142-424 complet platele 017 K/mm3 ed t count 06:40 Red = 3.95 4.6-6.2 complet blood 017 M/mm3 ed cell 06:40 count Automat = 18.9 11.5-17 complet ed 017 % .5 ed erythro 06:40 cyte distrib ution width Blood = 7.3 4.8-10. complet leukocy 017 K/MM3 8 ed kelley 06:40 count (number /volume ) Basic metabolic panel (12-14-2016 06:40) Serum = 35 7-18 complet or 017 mg/dL ed plasma 06:40 urea nitroge n measure men Serum = 8.8 8.5-10. complet or 017 mg/dL 1 ed plasma 06:40 calcium measure ment (mas Serum = 103 98-107 complet or 017 mmoL/L ed plasma 06:40 chlorid e measure ment (mo Carbon = 26 21.0-32 complet dioxide 017 mmoL/L .0 ed 06:40 measure ment Serum = 1.5 0.70-1. complet or 017 mg/dL 30 ed plasma 06:40 creatin ine measure ment ( Estimat = 56 50-200 complet ion of 017 ML/MIN ed creatin 06:40 ine renal clearan ce Estimat = 46 >60 complet ed 017 ML/MIN ed glomeru 06:40 lar filtrat ion rate (GF Comment: REFERENCE RANGE: >60 ML/MIN/1.73 SQUARE METERS Comment: If this patient is -[place], then multiply the Comment: result by 1.210. Serum = 128 74-106 complet or 017 mg/dL ed plasma 06:40 glucose measure ment (mas Serum = 5.2 3.5-5.1 complet potassi 017 mmoL/L ed um 06:40 measure ment Serum = 135 136-145 complet sodium 017 mmoL/L ed measure 06:40 ment Blood lactic acid measurement (moles/vol (12-13-2016 23:35) Blood = 1.5 0.4-2.0 complet lactic 017 mmol/L ed acid 23:35 measure ment (moles/ vol Brain natriuretic peptide (12-13-2016 23:35) Brain 2 = 402 0-100 complet natriur 017 pg/mL ed etic 23:35 peptide Comprehensive metabolic panel (12-13-2016 23:35) Serum = 0.2 1.1-1.8 complet or 017 ed plasma 23:35 albumin /globul in mass ra Serum = 1.4 3.4-5.0 complet or 017 gm/dL ed plasma 23:35 albumin measure ment (mas Serum = 530 46-116 complet or 017 U/L ed plasma 23:35 alkalin e phospha tase austyn Serum = 0.6 0.2-1.0 complet or 017 mg/dL ed plasma 23:35 total bilirub in measure m Serum = 34 7-18 complet or 017 mg/dL ed plasma 23:35 urea nitroge n measure men Serum = 8.7 8.5-10. complet or 017 mg/dL 1 ed plasma 23:35 calcium measure ment (mas Serum = 102 98-107 complet or 017 mmoL/L ed plasma 23:35 chlorid e measure ment (mo Carbon = 27 21.0-32 complet dioxide 017 mmoL/L .0 ed 23:35 measure ment Serum = 1.5 0.70-1. complet or 017 mg/dL 30 ed plasma 23:35 creatin ine measure ment ( Estimat = 73 50-200 complet ion of 017 ML/MIN ed creatin 23:35 ine renal clearan ce Estimat = 46 >60 complet ed 017 ML/MIN ed glomeru 23:35 lar filtrat ion rate (GF Comment: REFERENCE RANGE: >60 ML/MIN/1.73 SQUARE METERS Comment: If this patient is -[place], then multiply the Comment: result by 1.210. Serum = 6.0 1.3-3.2 complet globuli 017 gm/dL ed n 23:35 measure ment (mass/v olume) Serum = 119 74-106 complet or 017 mg/dL ed plasma 23:35 glucose measure ment (mas Serum = 5.9 3.5-5.1 complet potassi 017 mmoL/L ed um 23:35 measure ment Comment: SERUM NOT HEMOLYZED Serum = 134 136-145 complet sodium 017 mmoL/L ed measure 23:35 ment Serum = 47 15-37 complet or 017 U/L ed plasma 23:35 asparta te aminotr ansfera ALT = 37 12-78 complet (SGPT) 017 U/L ed ser/wolfgang 23:35 s Protein = 7.4 6.4-8.2 complet total 017 gm/dL ed ser/wolfgang 23:35 s CBC w auto diff (12-13-2016 23:35) Automat = 0.1 0-0.2 complet ed 017 K/MM3 ed blood 23:35 basophi l count (count/ vo Baso % = 0.9 % 0.1-2.0 complet 017 ed 23:35 Automat = 0.1 0.0-0.4 complet ed 017 K/mm3 ed blood 23:35 eosinop hil count Automat = 1.3 % 0.1-12. complet ed 017 0 ed blood 23:35 eosinop hils/10 0 leukocy t Blood = 7.6 1.3-8.0 complet granulo 017 K/mm3 ed cytes 23:35 automat ed count (numb Granulo = 73.6 37.0-80 complet cyte 017 % .0 ed percent 23:35 age Blood = 35.8 42.0-52 complet hematoc 017 % .0 ed rit 23:35 (volume fractio n) Blood = 10.5 14.1-18 complet hemoglo 017 g/dL .0 ed bin 23:35 measure ment (mass/v olum Absolut 11-04-2 = 1.2 0.7-4.5 complet e 017 K/mm3 ed lymphoc 23:35 yte count Lymphoc = 12.1 10-50 complet yte 017 % ed count, 23:35 blood, automat ed Mean = 25.4 27-31.2 complet corpusc 017 pg ed ular 23:35 hemoglo bin (MCH) determ Automat = 29.3 31.8-35 complet ed 017 g/dl .4 ed erythro 23:35 cyte mean corpusc ular h Automat = 86.8 82.2-97 complet ed 017 fl .8 ed erythro 23:35 cyte mean corpusc ular v Absolut = 1.3 0.1-1.0 complet e 017 K/mm3 ed monocyt 23:35 e count [place] % = 12.1 1.7-9.3 complet 017 % ed 23:35 Automat = 7.1 7.4-10. complet ed 017 fl 4 ed blood 23:35 platele t mean volume austyn Blood = 311 142-424 complet platele 017 K/mm3 ed t count 23:35 Red = 4.12 4.6-6.2 complet blood 017 M/mm3 ed cell 23:35 count Automat = 18.9 11.5-17 complet ed 017 % .5 ed erythro 23:35 cyte distrib ution width Blood = 10.3 4.8-10. complet leukocy 017 K/MM3 8 ed kelley 23:35 count (number /volume ) Cell count + diff body fluid (12-03-2016 [...] context for Comment: interpretation. Comment: Performed at: [facility] Comment: [id number], [place] [id number] Comment: [employer] Teacher: Salvador Martínez PhD, Phone: [phone] Body fluid glucose assay (12-03-2016 12:45) Body [...] 017 K/mm3 ed monocyt 06:30 e count [place] % = 16.9 1.7-9.3 complet 017 % ed 06:30 Automat = 7.6 7.4-10. complet ed 017 fl 4 ed blood 06:30 platele t mean volume austyn Blood = 323 142-424 complet platele 017 K/mm3 ed t count 06:30 Red = 3.56 4.6-6.2 complet blood 017 M/mm3 ed cell 06:30 count Automat 2 = 18.1 11.5-17 complet ed 017 % [...] 017 K/mm3 ed monocyt 04:20 e count [place] % = 15.9 1.7-9.3 complet 017 % [...] ed kelley 04:20 count (number /volume ) Automat = 28.8 31.8-35 complet ed 017 g/dl .4 ed erythro 04:20 cyte mean corpusc ular h Mean = 25.3 27-31.2 complet corpusc 017 pg ed ular 04:20 hemoglo bin (MCH) determ Lymphoc = 11.1 10-50 complet yte 017 % ed count, 04:20 blood, automat ed Absolut = 1.7 0.7-4.5 complet e 017 K/mm3 ed lymphoc 04:20 yte count Blood = 9.6 14.1-18 complet hemoglo 017 g/dL .0 ed bin 04:20 measure ment (mass/v olum Blood = 33.3 42.0-52 complet hematoc 017 % .0 ed rit 04:20 (volume fractio n) Granulo = 72.3 37.0-80 complet cyte 017 % .0 ed percent 04:20 age Blood = 10.9 1.3-8.0 complet granulo 017 K/mm3 ed cytes 04:20 automat ed count (numb Automat = 0.4 % 0.1-12. complet ed 017 0 ed blood 04:20 eosinop hils/10 0 leukocy t Automat = 0.1 0.0-0.4 complet ed 017 K/mm3 ed blood 04:20 eosinop hil count Baso % = 0.2 % 0.1-2.0 complet 017 ed 04:20 Automat = 0.0 0-0.2 complet ed 017 K/MM3 ed blood 04:20 basophi l count (count/ vo Differential panel, method unspecified - (12-01-2016 04:20) [...] 04:20 count Comprehensive metabolic panel (12-01-2016 04:20) Protein = 6.1 6.4-8.2 complet total 017 gm/dL ed ser/wolfgang 04:20 s ALT = 26 12-78 complet (SGPT) 017 U/L ed ser/wolfgang 04:20 s Serum = 25 15-37 complet or 017 U/L ed plasma 04:20 asparta te aminotr ansfera Serum = 140 136-145 complet sodium 017 mmoL/L ed measure 04:20 ment Serum = 4.8 3.5-5.1 complet potassi 017 mmoL/L ed um 04:20 measure ment Serum = 101 74-106 complet or 017 mg/dL ed plasma 04:20 glucose measure ment (mas Serum = 4.7 1.3-3.2 complet globuli 017 gm/dL ed n 04:20 measure ment (mass/v olume) Estimat = 59 >60 complet ed 017 ML/MIN ed glomeru 04:20 lar filtrat ion rate (GF Comment: REFERENCE RANGE: >60 ML/MIN/1.73 SQUARE METERS Comment: If this patient is -[place], then multiply the Comment: result by 1.210. Estimat = 90 50-200 complet ion of 017 ML/MIN ed creatin 04:20 ine renal clearan ce Serum = 1.2 0.70-1. complet or 017 mg/dL 30 ed plasma 04:20 creatin ine measure ment ( Carbon = 26 21.0-32 complet dioxide 017 mmoL/L .0 ed 04:20 measure ment Serum = 107 98-107 complet or 017 mmoL/L ed plasma 04:20 chlorid e measure ment (mo Serum = 8.4 8.5-10. complet or 017 mg/dL 1 ed plasma 04:20 calcium measure ment (mas Serum = 37 7-18 complet or 017 mg/dL ed plasma 04:20 urea nitroge n measure men Serum = 0.8 0.2-1.0 complet or 017 mg/dL ed plasma 04:20 total bilirub in measure m Serum = 348 46-116 complet or 017 U/L ed plasma 04:20 alkalin e phospha tase austyn Serum = 1.4 3.4-5.0 complet or 017 gm/dL ed plasma 04:20 albumin measure ment (mas Serum = 0.3 1.1-1.8 complet or 017 ed plasma 04:20 albumin /globul in mass ra Differential panel, method unspecified - (12-01-2016 04:20) [...] ce] in Blood by Light microsc opy Basic metabolic panel (11-30-2016 06:30) Serum = 140 136-145 complet sodium 017 mmoL/L ed measure 06:30 ment Serum = 4.6 3.5-5.1 complet potassi 017 mmoL/L ed um 06:30 measure ment Serum = 115 74-106 complet or 017 mg/dL ed plasma 06:30 glucose measure ment (mas Estimat = 54 >60 complet ed 017 ML/MIN ed glomeru 06:30 lar filtrat ion rate (GF Comment: REFERENCE RANGE: >60 ML/MIN/1.73 SQUARE METERS Comment: If this patient is -[place], then multiply the Comment: result by 1.210. Estimat = 83 50-200 complet ion of 017 ML/MIN ed creatin 06:30 ine renal clearan ce Serum = 1.3 0.70-1. complet or 017 mg/dL 30 ed plasma 06:30 creatin ine measure ment ( Carbon = 27 21.0-32 complet dioxide 017 mmoL/L .0 ed 06:30 measure ment Serum = 108 98-107 complet or 017 mmoL/L ed plasma 06:30 chlorid e measure ment (mo Serum = 8.6 8.5-10. complet or 017 mg/dL 1 ed plasma 06:30 calcium measure ment (mas Serum = 37 7-18 complet or 017 mg/dL ed plasma 06:30 urea nitroge n measure men CBC w auto diff (11-30-2016 06:30) Blood = 12.8 4.8-10. complet leukocy 017 K/MM3 8 ed kelley 06:30 count (number /volume ) Automat = 17.4 11.5-17 complet ed 017 % .5 ed erythro 06:30 cyte distrib ution width Red = 3.67 4.6-6.2 complet blood 017 M/mm3 ed cell 06:30 count Blood = 383 142-424 complet platele 017 K/mm3 ed t count 06:30 Automat = 7.5 7.4-10. complet ed 017 fl 4 ed blood 06:30 platele t mean volume austyn [place] % = 15.8 1.7-9.3 complet 017 % ed 06:30 Absolut = 2.0 0.1-1.0 complet e 017 K/mm3 ed monocyt 06:30 e count Automat = 88.4 82.2-97 complet ed 017 fl .8 ed erythro 06:30 cyte mean corpusc ular v Automat = 28.6 31.8-35 complet ed 017 g/dl .4 ed erythro 06:30 cyte mean corpusc ular h Mean = 25.3 27-31.2 complet corpusc 017 pg ed ular 06:30 hemoglo bin (MCH) determ Lymphoc = 7.2 % 10-50 complet yte 017 ed count, 06:30 blood, automat ed Absolut = 0.9 0.7-4.5 complet e 017 K/mm3 ed lymphoc 06:30 yte count Blood = 9.3 14.1-18 complet hemoglo 017 g/dL .0 ed bin 06:30 measure ment (mass/v olum Blood = 32.5 42.0-52 complet hematoc 017 % .0 ed rit 06:30 (volume fractio n) Granulo = 76.2 37.0-80 complet cyte 017 % .0 ed percent 06:30 age Blood = 9.7 1.3-8.0 complet granulo 017 K/mm3 ed cytes 06:30 automat ed count (numb Automat = 0.6 % 0.1-12. complet ed 017 0 ed blood 06:30 eosinop hils/10 0 leukocy t Automat = 0.1 0.0-0.4 complet ed 017 K/mm3 ed blood 06:30 eosinop hil count Automat = 0.0 0-0.2 complet ed 017 K/MM3 ed blood 06:30 basophi l count (count/ vo Baso % = 0.2 % 0.1-2.0 complet 017 ed 06:30 Vancomycin trough (11-30-2016 06:30) Vancomy 11-30-2 = 19.3 5.0-10. complet meghan 017 mcg/mL 0 ed trough 06:30 Comment: CALLED TO Jeff MILLARD [facility] 11/30/16 0725 JS CREATININE (11-29-2016 [...] SQUARE METERS Comment: If this patient is -[place], then multiply the Comment: result by 1.210. Vancomycin trough (11-29-2016 09:15) Vancomy = 25.1 5.0-10. complet meghan 017 mcg/mL 0 ed trough 09:15 Comment: Comment: RESULTS CALLED TO PHARMACIST: CHE 11/29/16 0932 Comment: Russell Mondragon Cardiac enzymes (11-29-2016 06:20) Serum = 16 39-308 complet or 017 U/L ed plasma 06:20 creatin e kinase measure m Serum = 0.5 0.0-3.6 complet or 017 ng/mL ed plasma 06:20 creatin e kinase MB measu Serum = 3.1 0-4.0 complet or 017 U/L ed plasma 06:20 creatin e kinase MB (CK-M Serum < 0.02 0.00-0. complet or 017 [...] WILL HOLD YEAST FOR 5 DAYS. Sputum [id number] complet culture 017 5 Yeast ed 02:35 [...] identif 02:35 ied in Sputum by Culture Body fluid glucose assay (11-27-2016 12:00) Comment: COMMENTS TO COMBAT SYSTEMS OFFICER: ascites Body = 123 . complet fluid [...] fluid, total (11-27-2016 12:00) Comment: COMMENTS TO COMBAT SYSTEMS OFFICER: ascites Protein = 1.7 . complet , [...] context for Comment: interpretation. Comment: Performed at: [facility] Comment: [id number], [place] [id number] Comment: [employer] Teacher: Salvador Martínez PhD, Phone: [phone] Body fluid albumin measurement (mass/vol (11-27-2016 12:00) Comment: COMMENTS TO COMBAT SYSTEMS OFFICER: ascites Body = 0.5 . complet fluid [...] clinical context Comment: for interpretation. Cell count + diff body fluid (11-27-2016 12:00) Comment: COMMENTS TO COMBAT SYSTEMS OFFICER: ascites BODY COMMENT complet FLUID 017 ed [...] MM ed leukocy 12:00 te (WBC) count Vancomycin trough (11-27-2016 07:28) Vancomy = 24.6 5.0-10. complet meghan 017 mcg/mL 0 ed trough 07:28 Comment: RESULTS CALLED TO PHARMACIST: BRAYDEN Escamilla Comment: 11/27/16 0809 Edgardo Polanco Comprehensive metabolic panel (11-26-2016 06:04) Protein = 6.9 6.4-8.2 complet total 017 gm/dL ed ser/wolfgang 06:04 s ALT = 36 12-78 complet (SGPT) 017 U/L ed ser/wolfgang 06:04 s Serum = 39 15-37 complet or 017 U/L ed plasma 06:04 asparta te aminotr ansfera Serum 11-26-2 = 138 136-145 complet sodium 017 mmoL/L ed measure 06:04 ment Serum 11-26-2 = 4.7 3.5-5.1 complet potassi 017 mmoL/L ed um 06:04 measure ment Serum 11-26-2 = 103 74-106 complet or 017 mg/dL ed plasma 06:04 glucose measure ment (mas Serum 2 = 5.6 1.3-3.2 complet globuli 017 gm/dL ed n 06:04 measure ment (mass/v olume) Estimat 11-26-2 = 59 >60 complet ed 017 ML/MIN ed glomeru 06:04 lar filtrat ion rate (GF Comment: REFERENCE RANGE: >60 ML/MIN/1.73 SQUARE METERS Comment: If this patient is -[place], then multiply the Comment: result by 1.210. Estimat 2 = 95 50-200 complet ion of 017 ML/MIN ed creatin 06:04 ine renal clearan ce Serum 2 = 1.2 0.70-1. complet or 017 mg/dL 30 ed plasma 06:04 creatin ine measure ment ( Carbon = 24 21.0-32 complet dioxide 017 mmoL/L .0 ed 06:04 measure ment Serum 11-26-2 = 108 98-107 complet or 017 mmoL/L ed plasma 06:04 chlorid e measure ment (mo Serum 2 = 8.1 8.5-10. complet or 017 mg/dL 1 ed plasma 06:04 calcium measure ment (mas Serum 2 = 42 7-18 complet or 017 mg/dL ed plasma 06:04 urea nitroge n measure men Serum 11-26-2 = 1.1 0.2-1.0 complet or 017 mg/dL ed plasma 06:04 total bilirub in measure m Serum 11-26- = 467 46-116 complet or 017 U/L ed plasma 06:04 alkalin e phospha tase [place] Serum 11-26-2 = 1.3 3.4-5.0 complet or 017 gm/dL ed plasma 06:04 albumin measure ment (mas Serum 11-26-2 = 0.2 1.1-1.8 complet or 017 ed plasma 06:04 albumin /globul in mass ra CBC w auto diff (11-26-2016 06:04) Baso % = 0.2 % 0.1-2.0 complet 017 ed 06:04 Blood 11-26-2 = 10.6 4.8-10. complet leukocy 017 K/MM3 [...] blood 06:04 platele t mean volume [place] % = 8.8 % 1.7-9.3 complet 017 [...] E L on by test strip Mucus 11-25- 2+ 2+ L NONE complet detecti 017 ed on in 13:05 urine sedimen t by lig Mucus 11-25- NEGATIV NEG complet detecti 017 E ed on in 13:05 NEGATIV urine E L sedimen t by lig Urine 11-25- NEGATIV NEG complet ketones 017 E ed [...] 13:05 on in urine sedimen t by Hepatitis B profile (11-24-2016 13:30) Comment: COMMENTS TO COMBAT SYSTEMS OFFICER: COLLECTED BY PHYSICIAN Hepatit Negativ Negativ complet [...] a HCV Nucleic Acid Amplification Comment: test (643615). Comment: Performed at: [facility] Comment: [address], [place] [id number] Comment: Forest Products Teacher: Salvador Martínez PhD, Phone: [phone] HBcAb Negativ Negativ complet IgM 017 e e ed 13:30 Negativ e L Alk Phos Isoenzyme (10-16-2017 13:30) Serum = 438 39-117 complet or 017 IU/L ed plasma 13:30 alkalin e phospha tase austyn Comment: Performed at: [facility] Comment: [address], [place] [id number] Comment: Forest Products Teacher: Salvador Martínez PhD, Phone: [phone] Serum = 50 % 13-88 complet or 017 ed plasma 13:30 liver alkalin e phospha ta Serum = 0 % 0-18 complet or 017 ed plasma 13:30 intesti nal alkalin e phos Comment: Performed at: [facility] Comment: [address], [place] [id number] Comment: Forest Products Teacher: Salvador Martínez PhD, Phone: [phone] Serum = 50 % 12-68 complet or 017 ed plasma 13:30 bone alkalin e phospha tas Whole blood INR measurement (11-24-2016 13:30) Comment: COMMENTS TO COMBAT SYSTEMS OFFICER: COLLECTED BY PHYSICIAN Comment: IS PATIENT ON [...] Ammonia measurement (11-24-2016 13:30) Comment: COMMENTS TO COMBAT SYSTEMS OFFICER: COLLECTED BY PHYSICIAN Ammonia = 17 19-54 complet 017 umoL/L ed measure 13:30 ment Gamma glutamyl transferase (GGT) measure (11-24-2016 13:30) Gamma = 147 15-85 complet glutamy 017 U/L ed l 13:30 transfe rase (GGT) measure Serum or plasma actin IgG antibody assay (11-24-2016 13:30) Comment: COMMENTS TO COMBAT SYSTEMS OFFICER: COLLECTED BY PHYSICIAN Serum = 7 0-19 [...] IgG ab (11-24-2016 13:30) Comment: COMMENTS TO COMBAT SYSTEMS OFFICER: COLLECTED BY PHYSICIAN M2 < 20.0 0.0-20. complet mitocho 017 Units 0 ed ndrial 13:30 IgG ab Comment: Negative 0.0 - 20.0 Comment: Equivocal 20.1 - 24.9 Comment: Positive >24.9 Comment: Comment: Mitochondrial (M2) Antibodies are found in 90-96% of Comment: patients with primary biliary cirrhosis. Comment: Performed at: [facility] Comment: [address], [place] [id number] Comment: Forest Products Teacher: Salvador Martínez PhD, Phone: [phone] Quantitative serum IgM measurement (11-24-2016 13:30) Comment: COMMENTS TO COMBAT SYSTEMS OFFICER: COLLECTED BY PHYSICIAN Quantit = 48 15-143 complet ative 017 mg/dL ed serum 13:30 IgM measure ment Comment: Performed at: [facility] Comment: [address], [place] [id number] Comment: Forest Products Teacher: Salvador Martínez PhD, Phone: [phone] Serum or plasma IgG measurement (mass/vo (11-24-2016 13:30) Comment: COMMENTS TO COMBAT SYSTEMS OFFICER: COLLECTED BY PHYSICIAN Serum = 1984 700-160 complet or 017 mg/dL 0 ed plasma 13:30 IgG measure ment (mass/v o Serum IgA antibody assay (11-24-2016 13:30) Comment: COMMENTS TO COMBAT SYSTEMS OFFICER: COLLECTED BY PHYSICIAN Serum = 703 61-437 complet IgA 017 mg/dL ed antibod 13:30 y assay MARIANGEL (11-24-2016 13:30) Comment: COMMENTS TO COMBAT SYSTEMS OFFICER: COLLECTED BY PHYSICIAN MARIANGEL = 26 14-82 complet 017 U/L ed 13:30 Comment: Performed at: [facility] Comment: [address], [place] [id number] Comment: Forest Products Teacher: Salvador Martínez PhD, Phone: [phone] Comprehensive metabolic panel (11-24-2016 06:20) Serum = [...] SQUARE METERS Comment: If this patient is -[place], then multiply the Comment: result by 1.210. [...] blood 06:20 platele t mean volume austyn [place] % = 10.8 1.7-9.3 complet 017 % [...] % 0.1-2.0 complet 017 ed 06:20 Automat 11-24- = 0.0 0-0.2 complet ed 017 K/MM3 [...] test by minimum inhibit ory concent ration CBC w auto diff (11-22-2016 05:50) Blood [...] blood 05:50 platele t mean volume austyn [place] % = 6.9 % 1.7-9.3 complet 017 [...] blood 05:50 basophi l count (count/ vo Comprehensive metabolic panel (11-22-2016 05:50) Protein = [...] SQUARE METERS Comment: If this patient is -[place], then multiply the Comment: result by 1.210. [...] gm/dL ed plasma 05:50 albumin measure ment ([facility] Blood anaerobic culture (11-21-2016 11:40) Comment: Is patient on antibiotics? N Blood [id number] complet anaerob 017 ed ic 11:40 Staphyl [...] Comment: Is patient on antibiotics? N Aerobic [id number] complet 017 ed bacteri 11:40 Staphyl al [...] complet 017 CALLED ed bacteri 11:40 TO: DominiqueJohanne Prabhakar blood RN culture 7 0450 [facility] Jenkins Blood lactic acid measurement (moles/vol (11-21-2016 11:40) Blood = 1.6 0.4-2.0 complet lactic 017 mmol/L ed acid 11:40 measure ment (moles/ vol Urine culture (11-21-2016 10:55) Urine [id number] complet culture 017 07 ed 10:55 Escheri [...] ed c 10:55 gravity measure ment Erythro -- 20-50 0 complet cytes 017 20-50 L ed detecti 10:55 on in rbc/hpf urine sedimen t Urine 1 + NEG complet protein 017 mg/dL ed 10:55 measure ment by automat ed t Urine 2 = 7.5 5.0-8.5 complet pH 017 ed [...] Microscopic panel in Urine (11-21-2016 10:55) Bacteri 11-21- 4+ O complet a 017 ed [Presen 10:55 ce] in Urine sedimen t by Light microsc opy Erythro 11-21- 20-50 0 complet cytes 017 ed [Presen 10:55 ce] in Urine sedimen t by Light microsc opy Epithel 3-5 OCC complet ial 017 ed cells.s 10:55 quamous [Presen ce] in Urine sedimen t by Microsc opy high power field Leukocy 11-21- 20-50 O complet kelley 017 wbc/hpf ed [...] Lipase measurement (11-21-2016 10:50) Comment: COMMENTS TO COMBAT SYSTEMS OFFICER: PLEASE USE BLOOD ALREADY DRAWN Lipase = 128 73-393 complet measure 017 U/L ed ment 10:50 Amylase ser/plas (11-21-2016 10:50) Comment: COMMENTS TO COMBAT SYSTEMS OFFICER: PLEASE USE BLOOD ALREADY DRAWN Amylase = [...] red 10:50 blood cell detecti on Manual 10-13-2 = 1 % 0-3 complet blood 017 [...] blood 10:50 platele t mean volume austyn [place] % = 5.3 % 1.7-9.3 complet 017 [...] SQUARE METERS Comment: If this patient is -[place], then multiply the Comment: result by 1.210. [...] plasma 10:50 urea nitroge n measure men Differential panel, method unspecified - (11-21-2016 10:50) [...] sedimen t by Light microsc opy Hyaline 10-13- 3-5 NONE complet casts 017 ed [Presen 05:15 ce] in Urine sedimen t by Light microsc opy Leukocy 10-13- 3-5 O complet kelley 017 wbc/hpf ed [...] complet APPEARA 013 ed NCE 09:10 URINE 05-04-2 NEGATIV NEG complet GLUCOSE 013 E ed - 09:10 DIPSTIC K URINE 05-04-2 NEGATIV NEG complet BILIRUB 013 E ed IN - 09:10 DIPSTIC K URINE 05-04-2 NEGATIV NEG complet KETONE 013 E mg/dL ed 09:10 URINE 05-04-2 1.020 1.005-1 complet SPECIFI 013 UNK .030 [...] K/MM3 8 ed Auto 06:30 RBC # 03-26-2 3.75 4.6-6.2 complet Bld 013 M/mm3 ed Auto 06:30 Hgb 03-26-2 11.3 14.1-18 complet Bld-mCn 013 g/dL .0 ed c 06:30 Hct Fr 05-04-2 34.5 % 42.0-52 complet Bld 013 .0 ed 06:30 MCV RBC --2 92.2 fl 82.2-97 complet 013 .8 ed 06:30 MCH RBC -26-2 30.2 pg 27-31.2 complet Qn 013 ed Auto 06:30 MEAN 03-26-2 32.8 31.8-35 complet CORPUSC 013 g/dl .4 ed ULAR 06:30 HGB CONC RDW RBC 26-2 16.2 % 11.5-17 complet Auto 013 .5 ed 06:30 Platele -26-2 244 142-424 complet t Bld 013 K/mm3 ed Ql 06:30 Manual MEAN 05-04-2 7.2 fl 7.4-10. complet PLATELE 013 4 ed T 06:30 VOLUME Granulo 03-26-2 70.0 % 37.0-80 complet cytes 013 .0 ed Fr Bld 06:30 Auto LYMPH % 03-26-2 22.6 % 10-50 complet 013 ed 06:30 Monocyt 03-26-2 6.1 % 1.7-9.3 complet es Fr 013 [...] Auto COMPREHENSIVE METABOLIC PANEL (05-03-2012 10:30) Glucose 05-03-2 113 74-106 complet 013 mg/dL ed Bld-mCn 10:30 c BUN 05-03-2 22 7-18 complet Bld-mCn 013 mg/dL ed c 10:30 Creat 05-03-2 1.4 0.8-1.3 complet SerPl-m 013 mg/dL ed Cnc 10:30 GFR 05-03-2 50 Greater complet (ESTIMA 013 ML/MIN than ed ALFA) 10:30 60 Sodium 05-03-2 140 136-145 complet SerPl-s 013 mmoL/L ed [...] complet SerPl-c 013 ed Cnc 10:30 ALP 03-25-2 144 U/L 50-136 complet SerPl-c 013 ed [...] 013 K/mm3 ed Bld 10:30 Auto Lymphoc 2 0.8 0.7-4.5 complet ytes Fr 013 K/mm3 ed Bld 10:30 Auto Monocyt 2 0.4 0.1-1.0 complet es # 013 K/mm3 ed Bld 10:30 Auto Eosinop 0.0 0.0-0.4 complet hil # 013 K/mm3 ed Bld 10:30 Auto Basophi 0.0 0-0.2 complet ls # 013 K/MM3 ed Bld 10:30 Auto Encounters Encounter Start End Date Code Location Performer Type Date Inpatient IMP Leroy Husain ([place]) 3 10:17 3 17:50 [facility] ([place], [place])
--- OUTSIDE RECORDS SUMMARY | 2016-12-27 17:23 | External Medical Summary Rpt | CCD ---
Author Author , ELIGIO Organization ELIGIO Address Unknown Phone [email or web address] Care Team Providers Care Mini Bar Attendant Name Role Phone Anne Traore APRN, Unavailable Unavailable Anne Husain MD, Unavailable Unavailable Harinder Husain MD Purpose Continuity of Care Document - 05-03-2012 through 2016 Problems Code Diagnosis DOS Provider Status [id number] Headache [facility] [id number] Cervicogeni [facility] 401.9 Essential [place] hypertensio [facility] 458.8 Drug-induce [facility] [id number] Anxiety [facility] 729.82 [...] ENCOUNTER FOR OTHER PREPROCEDUR AL EXAMINATION Z79.01 AGENT (CURRENT) USE OF ANTICOAGULA NTS Allergies, Adverse [...] SQUARE METERS Comment: If this patient is -Dutch, then multiply the Comment: result by 1.210. [...] 017 K/mm3 ed monocyt 06:37 e count [place] % = 21.5 1.7-9.3 complet 017 % [...] 017 K/mm3 ed monocyt 07:10 e count [place] % = 15.5 1.7-9.3 complet 017 % [...] SQUARE METERS Comment: If this patient is -Dutch, then multiply the Comment: result by 1.210. [...] 017 K/mm3 ed monocyt 06:40 e count [place] % = 11.7 1.7-9.3 complet 017 % [...] SQUARE METERS Comment: If this patient is -Dutch, then multiply the Comment: result by 1.210. [...] SQUARE METERS Comment: If this patient is -Dutch, then multiply the Comment: result by 1.210. [...] 017 K/mm3 ed monocyt 23:35 e count [place] % = 12.1 1.7-9.3 complet 017 % [...] context for Comment: interpretation. Comment: Performed at: [facility] Comment: [address], [place] [id number] Comment: Construction Scheduler: Salvador Martínez PhD, Phone: [phone] Body fluid glucose assay (12-03-2016 12:45) Body [...] 017 K/mm3 ed monocyt 06:30 e count [place] % = 16.9 1.7-9.3 complet 017 % [...] 017 K/mm3 ed monocyt 04:20 e count [place] % = 15.9 1.7-9.3 complet 017 % [...] SQUARE METERS Comment: If this patient is -Dutch, then multiply the Comment: result by 1.210. [...] SQUARE METERS Comment: If this patient is -Dutch, then multiply the Comment: result by 1.210. [...] blood 06:30 platele t mean volume austyn [place] % = 15.8 1.7-9.3 complet 017 % [...] trough 06:30 Comment: CALLED TO Jeff MILLARD [facility] 11/30/16 0725 JS CREATININE (11-29-2016 09:15) [...] SQUARE METERS Comment: If this patient is -Dutch, then multiply the Comment: result by 1.210. [...] WILL HOLD YEAST FOR 5 DAYS. Sputum [id number] complet culture 017 5 Yeast ed 02:35 [...] glucose assay (11-27-2016 12:00) Comment: COMMENTS TO HOOF TRIMMER: ascites Body = 123 . complet fluid [...] fluid, total (11-27-2016 12:00) Comment: COMMENTS TO HOOF TRIMMER: ascites Protein = 1.7 . complet , [...] context for Comment: interpretation. Comment: Performed at: [facility] Comment: [address], [place] [id number] Comment: Construction Scheduler: Salvador Martínez PhD, Phone: [phone] Body fluid albumin measurement (mass/vol (11-27-2016 12:00) Comment: COMMENTS TO HOOF TRIMMER: ascites Body = 0.5 . complet fluid [...] body fluid (11-27-2016 12:00) Comment: COMMENTS TO HOOF TRIMMER: ascites BODY COMMENT complet FLUID 017 ed [...] SQUARE METERS Comment: If this patient is -Dutch, then multiply the Comment: result by 1.210. [...] blood 06:04 platele t mean volume austyn [place] % = 8.8 % 1.7-9.3 complet 017 [...] B profile (11-24-2016 13:30) Comment: COMMENTS TO HOOF TRIMMER: COLLECTED BY PHYSICIAN Hepatit Negativ Negativ complet [...] a HCV Nucleic Acid Amplification Comment: test ([id number]). Comment: Performed at: [facility] Comment: [address], [place] [id number] Comment: Construction Scheduler: Salvador Martínez PhD, Phone: [phone] HBcAb Negativ Negativ complet IgM 017 e e ed 13:30 Negativ e L Alk Phos Isoenzyme (10-16-2017 13:30) Serum = 438 39-117 complet or 017 IU/L ed plasma 13:30 alkalin e phospha tase austyn Comment: Performed at: [facility] Comment: [address], [place] [id number] Comment: Construction Scheduler: Salvador Martínez PhD, Phone: [phone] Serum = 50 % 13-88 complet or 017 ed plasma 13:30 liver alkalin e phospha ta Serum = 0 % 0-18 complet or 017 ed plasma 13:30 intesti nal alkalin e phos Comment: Performed at: [facility] Comment: [address], [place] [id number] Comment: Construction Scheduler: Salvador Martínez PhD, Phone: [phone] Serum = 50 % 12-68 complet or 017 ed plasma 13:30 bone alkalin e phospha tas Whole blood INR measurement (11-24-2016 13:30) Comment: COMMENTS TO HOOF TRIMMER: COLLECTED BY PHYSICIAN Comment: IS PATIENT ON [...] Ammonia measurement (11-24-2016 13:30) Comment: COMMENTS TO HOOF TRIMMER: COLLECTED BY PHYSICIAN Ammonia = 17 19-54 complet 017 umoL/L ed measure 13:30 ment Gamma glutamyl transferase (GGT) measure (11-24-2016 13:30) Gamma = 147 15-85 complet glutamy 017 U/L ed l 13:30 transfe rase (GGT) measure Serum or plasma actin IgG antibody assay (11-24-2016 13:30) Comment: COMMENTS TO HOOF TRIMMER: COLLECTED BY PHYSICIAN Serum = 7 0-19 [...] IgG ab (11-24-2016 13:30) Comment: COMMENTS TO HOOF TRIMMER: COLLECTED BY PHYSICIAN M2 < 20.0 0.0-20. complet mitocho 017 Units 0 ed ndrial 13:30 IgG ab Comment: Negative 0.0 - 20.0 Comment: Equivocal 20.1 - 24.9 Comment: Positive >24.9 Comment: Comment: Mitochondrial (M2) Antibodies are found in 90-96% of Comment: patients with primary biliary cirrhosis. Comment: Performed at: [facility] Comment: [address], [place] [id number] Comment: Construction Scheduler: Salvador Martínez PhD, Phone: [phone] Quantitative serum IgM measurement (11-24-2016 13:30) Comment: COMMENTS TO HOOF TRIMMER: COLLECTED BY PHYSICIAN Quantit = 48 15-143 complet ative 017 mg/dL ed serum 13:30 IgM measure ment Comment: Performed at: [facility] Comment: [address], [place] [id number] Comment: Construction Scheduler: Salvador Martínez PhD, Phone: [phone] Serum or plasma IgG measurement (mass/vo (11-24-2016 13:30) Comment: COMMENTS TO HOOF TRIMMER: COLLECTED BY PHYSICIAN Serum = 1986 700-160 complet or 017 mg/dL 0 ed plasma 13:30 IgG measure ment (mass/v o Serum IgA antibody assay (11-24-2016 13:30) Comment: COMMENTS TO HOOF TRIMMER: COLLECTED BY PHYSICIAN Serum = 703 61-437 complet IgA 017 mg/dL ed antibod 13:30 y assay MARIANGEL (11-24-2016 13:30) Comment: COMMENTS TO HOOF TRIMMER: COLLECTED BY PHYSICIAN MARIANGEL = 26 14-82 complet 017 U/L ed 13:30 Comment: Performed at: [facility] Comment: [address], [place] [id number] Comment: Construction Scheduler: Salvador Martínez PhD, Phone: [phone] Comprehensive metabolic panel (11-24-2016 06:20) Serum = [...] SQUARE METERS Comment: If this patient is -Dutch, then multiply the Comment: result by 1.210. [...] blood 06:20 platele t mean volume austyn [place] % = 10.8 1.7-9.3 complet 017 % [...] blood 05:50 platele t mean volume austyn [place] % = 6.9 % 1.7-9.3 complet 017 [...] SQUARE METERS Comment: If this patient is -Dutch, then multiply the Comment: result by 1.210. [...] gm/dL ed plasma 05:50 albumin measure ment ([facility] Blood anaerobic culture (11-21-2016 11:40) Comment: Is patient on antibiotics? N Blood [id number] complet anaerob 017 ed ic 11:40 Staphyl [...] Comment: Is patient on antibiotics? N Aerobic [id number] complet 017 ed bacteri 11:40 Staphyl al [...] (moles/ vol Urine culture (11-21-2016 10:55) Urine [id number] complet culture 017 07 ed 10:55 Escheri [...] Lipase measurement (11-21-2016 10:50) Comment: COMMENTS TO HOOF TRIMMER: PLEASE USE BLOOD ALREADY DRAWN Lipase = 128 73-393 complet measure 017 U/L ed ment 10:50 Amylase ser/plas (11-21-2016 10:50) Comment: COMMENTS TO HOOF TRIMMER: PLEASE USE BLOOD ALREADY DRAWN Amylase = [...] blood 10:50 platele t mean volume austyn [place] % = 5.3 % 1.7-9.3 complet 017 [...] SQUARE METERS Comment: If this patient is -Dutch, then multiply the Comment: result by 1.210. [...] Leroy Husain ([place]) 3 10:17 3 17:50 [facility] [place] [facility]
--- OUTSIDE RECORDS SUMMARY | 2016-12-27 17:25 | External Medical Summary Rpt | CCD ---
Demographics Preferred Language Tongan Marital Status Unknown Uatsdin Affiliation Unknown Race Unknown Ethnic Group Unknown Author Author , AURELIA DEL VALLE Address Unknown Phone Immunization No patient found.
--- OUTSIDE RECORDS SUMMARY | 2016-12-27 17:25 | External Medical Summary Rpt | CCD ---
Demographics Preferred Language [place] Island[place] Marital Status Unknown Confucianist Affiliation Unknown Race Unknown Ethnic Group Unknown Author Author , AURELIA DEL VALLE Address Unknown Phone Immunization No patient found.
--- OUTSIDE RECORDS SUMMARY | 2016-12-27 17:28 | External Medical Summary Rpt ---
Author Author [employer], [employer] Organization [employer] Address Unknown Phone Unavailable Results CBC W Auto Differential panel in Blood Observa Value Referen Units Interpr Notes Date tion ce etation Range Basophils 0 - 0.2 K/MM3 Normal No Dec 16 informati 2017 6:37 [#/volume on in AM ] in source Blood by data Automated count Basophils 0.1 - 2.0 % Normal No Dec 16 /100 informati 2017 6:37 leukocyte on in AM s in source Blood by data Automated count Eosinophi 0.0 - 0.4 K/mm3 Normal No Dec 16 ls informati 2017 6:37 [#/volume on in AM ] in source Blood by data Automated count Eosinophi 0.1 - % Normal No Dec 16 ls/100 12.0 informati 2017 6:37 leukocyte on in AM s in source Blood by data Automated count Granulocy 1.3 - 8.0 K/mm3 Normal No Dec 16 kelley informati 2017 6:37 [#/volume on in AM ] in source Blood by data Automated count Granulocy 37.0 - % Normal No Dec 16 kelley/100 80.0 informati 2017 6:37 leukocyte on in AM s in source Blood by data Automated count Hematocri 42.0 - % Low No Dec 16 t [Volume 52.0 informati 2017 6:37 on in AM Fraction] source of Blood data Hemoglobi 14.1 - g/dL Low No Dec 16 n 18.0 informati 2017 6:37 [Mass/vol on in AM ume] in source Blood data Lymphocyt 0.7 - 4.5 K/mm3 Normal No Dec 16 es informati 2017 6:37 [#/volume on in AM ] in source Unspecifi data ed specimen by Automated count Lymphocyt 10 - 50 % Normal No Dec 16 es informati 2017 6:37 [#/volume on in AM ] in source Unspecifi data ed specimen by Automated count Erythrocy 27 - 31.2 pg Low No Dec 16 te mean informati 2017 6:37 corpuscul on in AM ar source hemoglobi data n [Entitic mass] Erythrocy 31.8 - g/dl Low No Dec 16 te mean 35.4 informati 2017 6:37 corpuscul on in AM ar source hemoglobi data n concentra tion [Mass/vol ume] by Automated count Erythrocy 82.2 - fl Normal No Dec 16 te mean 97.8 informati 2016 6:37 corpuscul on in AM ar volume source [Entitic data volume] by Automated count Monocytes 0.1 - 1.0 K/mm3 High No Dec 16 informati 2016 6:37 [#/volume on in AM ] in source Blood by data Automated count Monocytes 1.7 - 9.3 % High No Dec 16 informati 2016 6:37 leukocyte on in AM s in source Blood by data Automated count Platelet 7.4 - fl Normal Dec 16 mean 10.4 informati 2016 6:37 volume on in AM [Entitic source volume] data in Blood by Automated count Platelets 142 - 424 K/mm3 Normal No Dec 16 informati 2016 6:37 [#/volume on in AM ] in source Blood data Erythrocy 4.6 - 6.2 M/mm3 Low No Dec 16 kelley informati 2017 6:37 [#/volume on in AM ] in source Amniotic data fluid Erythrocy 11.5 - % High No Dec 16 te 17.5 informati 2016 6:37 distribut on in AM ion width source [Entitic data volume] by Automated count Leukocyte 4.8 - K/MM3 No Dec 16 s 10.8 informati informati 2017 6:37 [#/volume on in on in AM ] in source source Blood data data Differential panel, method unspecified - Observa Value Referen Units Interpr Notes Date tion ce etation Range Basophils 0 - 1 % Normal No Dec 16 informati 2017 6:37 leukocyte on in AM s in source Blood by data Automated count Hypochr 1+ No No No Dec 16 omia informa informa informa informa 2016 [Presen tion in tion in tion in tion in 6:37 AM ce] in source source source source Blood data data data data LYMPH 9 10 - 50 % Low Dec 16 inform2016 tion in 6:37 AM source data Monocytes 2 - 9 % High No Dec 16 informati 2017 6:37 leukocyte on in AM s in source Blood by data Automated count Platele NORMAL No No No No Dec 16 ts informa informa informa informa 2016 [Presen tion in tion in tion in tion in 6:37 AM ce] in source source source source Blood data data data data by Light microsc opy Neutrophi 42 - 76 % Normal No Dec 16 ls informati 2016 6:37 [#/volume on in AM ] in source Blood by data Automated count Cells No #CELLS No No Dec 16 Counted informati informati informati 2016 6:37 Total [#] on in on in on in AM in Blood source source source data data data Comprehensive metabolic 2000 panel in Serum or Plasma Observa Value Referen Units Interpr Notes Date tion ce etation Range Albumin/G 1.1 - 1.8 No Low No Dec 16 lobulin informati informati 2016 6:37 [Mass on in on in AM ratio] in source source Serum or data data Plasma Albumin 3.4 - 5.0 gm/dL Low Dec 16 [Mass/vol informati 2017 6:37 ume] in on in AM Serum or source Plasma data Alkaline 46 - 116 U/L High No Dec 16 phosphata informati 2017 6:37 se on in AM [Enzymati source c data activity/ volume] in Serum or Plasma Bilirubin 0.2 - 1.0 mg/dL Normal No Dec 16 .total informati 2016 6:37 [Mass/vol on in AM ume] in source Serum or data Plasma Urea 7 - 18 mg/dL High No Dec 16 nitrogen informati 2017 6:37 [Mass/vol on in AM ume] in source Serum or data Plasma Calcium 8.5 - mg/dL Low Dec 16 [Mass/vol 10.1 informati 2017 6:37 ume] in on in AM Serum or source Plasma data Chloride 98 - 107 mmoL/L Normal No Dec 16 [Moles/vo informati 2017 6:37 lume] in on in AM Serum or source Plasma data Carbon 21.0 - mmoL/L Normal No Dec 16 dioxide, 32.0 informati 2017 6:37 total on in AM [Moles/vo source lume] in data Serum or Plasma Creatinin 0.70 - mg/dL High No Dec 16 e 1.30 informati 2017 6:37 [Mass/vol on in AM ume] in source Serum or data Plasma Creatinin 50 - 200 ML/MIN Normal No Dec 7 e renal informati 2017 6:37 clearance on in AM source predicted data by Cockcroft -Gault formula Estimated >60 ML/MIN No REFERENCE Dec 16 informati RANGE: 2017 6:37 glomerula on in >60 AM r source ML/MIN/1. filtratio data 73 SQUARE n rate METERSIf (GF this patient is -A merican, then multiply theresult by 1.210. Globulin 1.3 - 3.2 gm/dL High No Dec 16 [Mass/vol informati 2016 6:37 ume] in on in AM Serum source data Glucose 74 - 106 mg/dL Normal No Dec 16 [Mass/vol informati 2016 6:37 ume] in on in AM Serum or source Plasma data Potassium 3.5 - 5.1 mmoL/L Normal No Dec 16 informati 2016 6:37 [Moles/vo on in AM lume] in source Serum or data Plasma Sodium 136 - 145 mmoL/L Low No Dec 16 [Moles/vo informati 2016 6:37 lume] in on in AM Serum or source Plasma data Aspartate 15 - 37 U/L High No Dec 16 informati 2017 6:37 aminotran on in AM sferase source [Enzymati data c activity/ volume] in Serum or Plasma Alanine 12 - 78 U/L Normal No Dec 16 aminotran informati 2016 6:37 sferase on in AM [Enzymati source c data activity/ volume] in Serum or Plasma Protein 6.4 - 8.2 gm/dL Low No Dec 16 [Mass/vol informati 2016 6:37 ume] in on in AM Serum or source Plasma data Basic metabolic panel in Blood Observa Value Referen Units Interpr Notes Date tion ce etation Range Urea 7 - 18 mg/dL High No Dec 15 nitrogen informati 2016 7:10 [Mass/vol on in AM ume] in source Serum or data Plasma Calcium 8.5 - mg/dL Low No Dec 15 [Mass/vol 10.1 informati 2016 7:10 ume] in on in AM Serum or source Plasma data Chloride 98 - 107 mmoL/L Normal No Dec 15 [Moles/vo informati 2016 7:10 lume] in on in AM Serum or source Plasma data Carbon 21.0 - mmoL/L Normal No Dec 15 dioxide, 32.0 informati 2016 7:10 total on in AM [Moles/vo source lume] in data Serum or Plasma Creatinin 0.70 - mg/dL High No Dec 15 e 1.30 informati 2016 7:10 [Mass/vol on in AM ume] in source Serum or data Plasma Creatinin 50 - 200 ML/MIN Normal No Dec 15 e renal informati 2016 7:10 clearance on in AM source predicted data by Cockcroft -Gault formula Estimated >60 ML/MIN No REFERENCE Dec 15 informati RANGE: 2016 7:10 glomerula on in >60 AM r source ML/MIN/1. filtratio data 73 SQUARE n rate METERSIf (GF this patient is -A merican, then multiply theresult by 1.210. Glucose 74 - 106 mg/dL Normal No Dec 15 [Mass/vol informati 2016 7:10 ume] in on in AM Serum or source Plasma data Potassium 3.5 - 5.1 mmoL/L Normal No Dec 15 inform2016 7:10 [Moles/vo on in AM lume] in source Serum or data Plasma Sodium 136 - 145 mmoL/L Low No Dec 15 [Moles/vo informati 2016 7:10 lume] in on in AM Serum or source Plasma data CBC W Auto Differential panel in Blood Observa Value Referen Units Interpr Notes Date tion ce etation Range Basophils 0 - 0.2 K/MM3 Normal No Dec 15 inform2016 7:10 [#/volume on in AM ] in source Blood by data Automated count Basophils 0.1 - 2.0 % Normal No Dec 15 informati 2016 7:10 leukocyte on in AM s in source Blood by data Automated count Eosinophi 0.0 - 0.4 K/mm3 Normal No Dec 15 ls informati 2016 7:10 [#/volume on in AM ] in source Blood by data Automated count Eosinophi 0.1 - % Normal No Dec 15 ls/100 12.0 informati 2016 7:10 leukocyte on in AM s in source Blood by data Automated count Granulocy 1.3 - 8.0 K/mm3 High No Dec 15 kelley informati 2016 7:10 [#/volume on in AM ] in source Blood by data Automated count Granulocy 37.0 - % Normal No Dec 15 kelley/100 80.0 informati 2016 7:10 leukocyte on in AM s in source Blood by data Automated count Hematocri 42.0 - % Low No Nov 6 t [Volume 52.0 informati 2017 7:10 on in AM Fraction] source of Blood data Hemoglobi 14.1 - g/dL Low No Nov 6 n 18.0 informati 2017 7:10 [Mass/vol on in AM ume] in source Blood data Lymphocyt 0.7 - 4.5 K/mm3 Normal No Nov 6 es informati 2017 7:10 [#/volume on in AM ] in source Unspecifi data ed specimen by Automated count Lymphocyt 10 - 50 % Low No Nov 6 es informati 2017 7:10 [#/volume on in AM ] in source Unspecifi data ed specimen by Automated count Erythrocy 27 - 31.2 pg Low No Nov 6 te mean informati 2017 7:10 corpuscul on in AM ar source hemoglobi data n [Entitic mass] Erythrocy 31.8 - g/dl Low No Nov 6 te mean 35.4 informati 2017 7:10 corpuscul on in AM ar source hemoglobi data n concentra tion [Mass/vol ume] by Automated count Erythrocy 82.2 - fl Normal No Nov 6 te mean 97.8 informati 2017 7:10 corpuscul on in AM ar volume source [Entitic data volume] by Automated count Monocytes 0.1 - 1.0 K/mm3 High No Nov 6 informati 2017 7:10 [#/volume on in AM ] in source Blood by data Automated count Monocytes 1.7 - 9.3 % High No Nov 6 /100 informati 2017 7:10 leukocyte on in AM s in source Blood by data Automated count Platelet 7.4 - fl Normal No Nov 6 mean 10.4 informati 2017 7:10 volume on in AM [Entitic source volume] data in Blood by Automated count Platelets 142 - 424 K/mm3 Normal No Nov 6 informati 2017 7:10 [#/volume on in AM ] in source Blood data Erythrocy 4.6 - 6.2 M/mm3 Low No Nov 6 kelley informati 2017 7:10 [#/volume on in AM ] in source Amniotic data fluid Erythrocy 11.5 - % High No Nov 6 te 17.5 informati 2017 7:10 distribut on in AM ion width source [Entitic data volume] by Automated count Leukocyte 4.8 - K/MM3 High No Nov 6 s 10.8 informati 2016 7:10 [#/volume on in AM ] in source Blood data Basic metabolic panel in Blood Observa Value Referen Units Interpr Notes Date tion ce etation Range Urea 7 - 18 mg/dL High No Dec 14 nitrogen informati 2016 6:40 [Mass/vol on in AM ume] in source Serum or data Plasma Calcium 8.5 - mg/dL Normal No Dec 14 [Mass/vol 10.1 informati 2016 6:40 ume] in on in AM Serum or source Plasma data Chloride 98 - 107 mmoL/L Normal No Dec 14 [Moles/vo informati 2016 6:40 lume] in on in AM Serum or source Plasma data Carbon 21.0 - mmoL/L Normal No Dec 14 dioxide, 32.0 informati 2016 6:40 total on in AM [Moles/vo source lume] in data Serum or Plasma Creatinin 0.70 - mg/dL High No Dec 14 e 1.30 informati 2016 6:40 [Mass/vol on in AM ume] in source Serum or data Plasma Creatinin 50 - 200 ML/MIN Normal No Dec 14 e renal informati 2016 6:40 clearance on in AM source predicted data by Cockcroft -Gault formula Estimated >60 ML/MIN No REFERENCE Dec 14 informati RANGE: 2017 6:40 glomerula on in >60 AM r source ML/MIN/1. filtratio data 73 SQUARE n rate METERSIf (GF this patient is -A merican, then multiply theresult by 1.210. Glucose 74 - 106 mg/dL High No Dec 14 [Mass/vol informati 2016 6:40 ume] in on in AM Serum or source Plasma data Potassium 3.5 - 5.1 mmoL/L High No Dec 14 informati 2016 6:40 [Moles/vo on in AM lume] in source Serum or data Plasma Sodium 136 - 145 mmoL/L Low No Dec 14 [Moles/vo informati 2016 6:40 lume] in on in AM Serum or source Plasma data CBC W Auto Differential panel in Blood Observa Value Referen Units Interpr Notes Date tion ce etation Range Basophils 0 - 0.2 K/MM3 Normal No Dec 14 informati 2016 6:40 [#/volume on in AM ] in source Blood by data Automated count Basophils 0.1 - 2.0 % Normal No Nov 5 /100 informati 2017 6:40 leukocyte on in AM s in source Blood by data Automated count Eosinophi 0.0 - 0.4 K/mm3 Normal No Nov 5 ls informati 2016 6:40 [#/volume on in AM ] in source Blood by data Automated count Eosinophi 0.1 - % Normal No Nov 5 ls/100 12.0 informati 2016 6:40 leukocyte on in AM s in source Blood by data Automated count Granulocy 1.3 - 8.0 K/mm3 Normal No Nov 5 kelley informati 2016 6:40 [#/volume on in AM ] in source Blood by data Automated count Granulocy 37.0 - % Normal No Nov 5 kelley/100 80.0 informati 2017 6:40 leukocyte on in AM s in source Blood by data Automated count Hematocri 42.0 - % Low No Dec 5 t [Volume 52.0 informati 2017 6:40 on in AM Fraction] source of Blood data Hemoglobi 14.1 - g/dL Low No Dec 5 n 18.0 informati 2017 6:40 [Mass/vol on in AM ume] in source Blood data Lymphocyt 0.7 - 4.5 K/mm3 Normal No Nov 5 es informati 2017 6:40 [#/volume on in AM ] in source Unspecifi data ed specimen by Automated count Lymphocyt 10 - 50 % Normal No Nov 5 es informati 2017 6:40 [#/volume on in AM ] in source Unspecifi data ed specimen by Automated count Erythrocy 27 - 31.2 pg Low No Nov 5 te mean informati 2017 6:40 corpuscul on in AM ar source hemoglobi data n [Entitic mass] Erythrocy 31.8 - g/dl Low No Nov 5 te mean 35.4 informati 2017 6:40 corpuscul on in AM ar source hemoglobi data n concentra tion [Mass/vol ume] by Automated count Erythrocy 82.2 - fl Normal No Nov 5 te mean 97.8 informati 2017 6:40 corpuscul on in AM ar volume source [Entitic data volume] by Automated count Monocytes 0.1 - 1.0 K/mm3 Normal No Nov 5 informati 2017 6:40 [#/volume on in AM ] in source Blood by data Automated count Monocytes 1.7 - 9.3 % High No Nov 5 /100 informati 2016 6:40 leukocyte on in AM s in source Blood by data Automated count Platelet 7.4 - fl Low No Dec 5 mean 10.4 inform2016 6:40 volume on in AM [Entitic source volume] data in Blood by Automated count Platelets 142 - 424 K/mm3 Normal No Dec 5 inform2016 6:40 [#/volume on in AM ] in source Blood data Erythrocy 4.6 - 6.2 M/mm3 Low No Dec 5 kelley informati 2016 6:40 [#/volume on in AM ] in source Amniotic data fluid Erythrocy 11.5 - % High No Dec 14 te 17.5 informati 2016 6:40 distribut on in AM ion width source [Entitic data volume] by Automated count Leukocyte 4.8 - K/MM3 No Dec 14 s 10.8 informati informati 2016 6:40 [#/volume on in on in AM ] in source source Blood data data Natriutietic peptide B [Mass/volume] in Serum or Plasma Observa Value Referen Units Interpr Notes Date tion ce etation Range Natriutie 0 - 100 pg/mL High No Dec 13 tic 2017 peptide B on in 11:35 PM source [Mass/vol data ume] in Serum or Plasma Comprehensive metabolic 2000 panel in Serum or Plasma Observa Value Referen Units Interpr Notes Date tion ce etation Range Albumin/G 1.1 - 1.8 No Low No Dec 4 lobulin informati inform2016 [Mass on in on in 11:35 PM ratio] in source source Serum or data data Plasma Albumin 3.4 - 5.0 gm/dL Low No Dec 13 [Mass/vol informati 2016 ume] in on in 11:35 PM Serum or source Plasma data Alkaline 46 - 116 U/L High No Dec 13 phosphata inform2016 se on in 11:35 PM [Enzymati source c data activity/ volume] in Serum or Plasma Bilirubin 0.2 - 1.0 mg/dL Normal No Dec 13 .total informati 2016 [Mass/vol on in 11:35 PM ume] in source Serum or data Plasma Urea 7 - 18 mg/dL High No Dec 13 nitrogen informati 2016 [Mass/vol on in 11:35 PM ume] in source Serum or data Plasma Calcium 8.5 - mg/dL Normal No Dec 13 [Mass/vol 10.1 informati 2016 ume] in on in 11:35 PM Serum or source Plasma data Chloride 98 - 107 mmoL/L Normal No Dec 13 [Moles/vo informati 2016 lume] in on in 11:35 PM Serum or source Plasma data Carbon 21.0 - mmoL/L Normal No Dec 13 dioxide, 32.0 informati 2017 total on in 11:35 PM [Moles/vo source lume] in data Serum or Plasma Creatinin 0.70 - mg/dL High No Dec 13 e 1.30 informati 2017 [Mass/vol on in 11:35 PM ume] in source Serum or data Plasma Creatinin 50 - 200 ML/MIN Normal No Dec 13 e renal informati 2017 clearance on in 11:35 PM source predicted data by Cockcroft -Gault formula Estimated >60 ML/MIN No REFERENCE Dec 13 informati RANGE: 2017 glomerula on in >60 11:35 PM r source ML/MIN/1. filtratio data 73 SQUARE n rate METERSIf (GF this patient is -A merican, then multiply theresult by 1.210. Globulin 1.3 - 3.2 gm/dL High No Dec 13 [Mass/vol informati 2016 ume] in on in 11:35 PM Serum source data Glucose 74 - 106 mg/dL High No Dec 13 [Mass/vol informati 2016 ume] in on in 11:35 PM Serum or source Plasma data Potassium 3.5 - 5.1 mmoL/L High SERUM NOT Dec 13 2016 [Moles/vo HEMOLYZED 11:35 PM lume] in Serum or Plasma Sodium 136 - 145 mmoL/L Low No Dec 13 [Moles/vo informati 2017 lume] in on in 11:35 PM Serum or source Plasma data Aspartate 15 - 37 U/L High No Dec [id number] aminotran on in 11:35 PM sferase source [Enzymati data c activity/ volume] in Serum or Plasma Alanine 12 - 78 U/L Normal No Dec 13 aminotran 2016 sferase on in 11:35 PM [Enzymati source c data activity/ volume] in Serum or Plasma Protein 6.4 - 8.2 gm/dL Normal No Dec 13 [Mass/vol informati 2017 ume] in on in 11:35 PM Serum or source Plasma data Lactate [Moles/volume] in Blood Observa Value Referen Units Interpr Notes Date tion ce etation Range Lactate 0.4 - 2.0 mmol/L Normal No Dec 4 [Moles/vo 2016 lume] in on in 11:35 PM Blood source data CBC W Auto Differential panel in Blood Observa Value Referen Units Interpr Notes Date tion ce etation Range Basophils 0 - 0.2 K/MM3 Normal No Dec 4 2016 [#/volume on in 11:35 PM ] in source Blood by data Automated count Basophils 0.1 - 2.0 % Normal No Nov 4 /100 inform2016 leukocyte on in 11:35 PM s in source Blood by data Automated count Eosinophi 0.0 - 0.4 K/mm3 Normal No Dec 4 ls 2016 [#/volume on in 11:35 PM ] in source Blood by data Automated count Eosinophi 0.1 - % Normal No Dec 4 ls/100 12.0 2016 leukocyte on in 11:35 PM s in source Blood by data Automated count Granulocy 1.3 - 8.0 K/mm3 Normal No Dec 4 kelley 2016 [#/volume on in 11:35 PM ] in source Blood by data Automated count Granulocy 37.0 - % Normal No Dec 4 kelley/100 80.0 2016 leukocyte on in 11:35 PM s in source Blood by data Automated count Hematocri 42.0 - % Low No Dec 4 t [Volume 52.0 2016 on in 11:35 PM Fraction] source of Blood data Hemoglobi 14.1 - g/dL Low No Dec 4 n 18.0 2016 [Mass/vol on in 11:35 PM ume] in source Blood data Lymphocyt 0.7 - 4.5 K/mm3 Normal No Dec 4 es 2016 [#/volume on in 11:35 PM ] in source Unspecifi data ed specimen by Automated count Lymphocyt 10 - 50 % Normal No Dec 4 es 2016 [#/volume on in 11:35 PM ] in source Unspecifi data ed specimen by Automated count Erythrocy 27 - 31.2 pg Low No Dec 4 te mean 2016 corpuscul on in 11:35 PM ar source hemoglobi data n [Entitic mass] Erythrocy 31.8 - g/dl Low No Dec 4 te mean 35.4 2016 corpuscul on in 11:35 PM ar source hemoglobi data n concentra tion [Mass/vol ume] by Automated count Erythrocy 82.2 - fl Normal No Dec 13 te mean 97.8 2016 corpuscul on in 11:35 PM ar volume source [Entitic data volume] by Automated count Monocytes 0.1 - 1.0 K/mm3 High No Dec 4 inform2016 [#/volume on in 11:35 PM ] in source Blood by data Automated count Monocytes 1.7 - 9.3 % High No Dec 4 /100 informati 2016 leukocyte on in 11:35 PM s in source Blood by data Automated count Platelet 7.4 - fl Low No Dec 13 mean 10.4 informati 2016 volume on in 11:35 PM [Entitic source volume] data in Blood by Automated count Platelets 142 - 424 K/mm3 Normal No Dec 4 inform2016 [#/volume on in 11:35 PM ] in source Blood data Erythrocy 4.6 - 6.2 M/mm3 Low No Dec 13 kelley inform2016 [#/volume on in 11:35 PM ] in source Amniotic data fluid Erythrocy 11.5 - % High No Dec 13 te 17.5 inform2016 distribut on in 11:35 PM ion width source [Entitic data volume] by Automated count Leukocyte 4.8 - K/MM3 Normal Dec 13 s 10.8 inform2016 [#/volume on in 11:35 PM ] in [...] the clinical context forinterp retation. Performed at: [address] [id number] [employer] Assistant: Salvador Martínez PhD, Phone: [phone] Glucose [Mass/volume] in Body fluid Observa [...] mg/dL High No Dec 03 nitrogen informati 2017 6:30 [Mass/vol on in AM ume] in source Serum or data Plasma Calcium 8.5 - mg/dL Low No Dec 03 [Mass/vol 10.1 informati 2016 6:30 ume] in on in AM Serum or source Plasma data Chloride 98 - 107 mmoL/L Normal No Dec 03 [Moles/vo informati 2016 6:30 lume] in on in AM Serum or source Plasma data Carbon 21.0 - mmoL/L Normal No Dec 03 dioxide, 32.0 informati 2016 6:30 total on in AM [Moles/vo source lume] in data Serum or Plasma Creatinin 0.70 - mg/dL High No Dec 03 e 1.30 informati 2016 6:30 [Mass/vol on in AM ume] in source Serum or data Plasma Creatinin 50 - 200 ML/MIN Normal No Dec 03 e renal informati 2016 6:30 clearance on in AM source predicted data by Cockcroft -Gault formula Estimated >60 ML/MIN No REFERENCE Dec 03 informati RANGE: 2017 6:30 glomerula on in >60 AM r source ML/MIN/1. filtratio data 73 SQUARE n rate METERSIf (GF this patient is -A merican, then multiply theresult by 1.210. Glucose 74 - 106 mg/dL High No Dec 03 [Mass/vol informati 2016 6:30 ume] in on in AM Serum or source Plasma data Potassium 3.5 - 5.1 mmoL/L Normal No Dec 03 informati 2016 6:30 [Moles/vo on in AM [...] 0.2 K/MM3 Normal No Dec 03 informati 2016 6:30 [...] K/mm3 High No Dec 03 kelley informati 2017 6:30 [#/volume on in AM ] in source Blood by data Automated count Granulocy 37.0 - % Normal No Dec 03 kelley/100 80.0 informati 2017 6:30 leukocyte on [...] No Dec 03 te mean 35.4 informati 2016 6:30 corpuscul on in AM ar source hemoglobi data n concentra tion [Mass/vol ume] by Automated count Erythrocy 82.2 - fl Normal No Dec 03 te mean 97.8 informati 2016 6:30 corpuscul on in AM ar volume source [Entitic data volume] by Automated count Monocytes 0.1 - 1.0 K/mm3 High No Dec 03 informati 2017 6:30 [#/volume [...] - 2.0 % Normal No Dec 01 / informati 2016 4:20 [...] Low No Dec 01 n 18.0 informati 2017 4:20 [Mass/vol on in AM [...] Low No Dec 01 te mean informati 2017 4:20 corpuscul on in AM [...] Normal No Dec 01 mean 10.4 informati 2017 4:20 volume on in AM [Entitic source volume] data in Blood by Automated count Platelets 142 - 424 K/mm3 Normal No Dec 01 informati 2017 4:20 [#/volume on in AM ] in source Blood data Erythrocy 4.6 - 6.2 M/mm3 Low No Dec 01 kelley informati 2017 4:20 [#/volume on in AM [...] gm/dL Low No Dec 01 [Mass/vol informati 2017 4:20 ume] in on [...] mg/dL High No Dec 01 nitrogen informati 2017 4:20 [Mass/vol on in AM [...] Normal No Dec 01 e 1.30 informati 2017 4:20 [Mass/vol on in AM ume] in source Serum or data Plasma Creatinin 50 - 200 ML/MIN Normal No Dec 01 e renal informati 2017 4:20 clearance on [...] gm/dL High No Dec 01 [Mass/vol informati 2017 4:20 ume] in on in AM Serum source data Glucose 74 - 106 mg/dL Normal No Dec 01 [Mass/vol informati 2017 4:20 ume] in on in AM Serum or source Plasma data Potassium 3.5 - 5.1 mmoL/L Normal No Oct 23 informati 2017 4:20 [Moles/vo on in AM lume] in source Serum or data Plasma Sodium 136 - 145 mmoL/L Normal No Oct [Moles/vo informati 2017 4:20 lume] in on in AM Serum or source Plasma data Aspartate 15 - 37 U/L Normal No Dec 01 informati 2017 4:20 aminotran on in AM sferase source [Enzymati data c activity/ volume] in Serum or Plasma Alanine 12 - 78 U/L Normal No Dec 01 aminotran informati 2017 4:20 sferase on in AM [Enzymati source c data activity/ volume] in Serum or Plasma Protein 6.4 - 8.2 gm/dL Low No Dec 01 [Mass/vol informati 2017 4:20 ume] in on [...] mg/dL High No Nov 30 [Mass/vol informati 2017 6:30 ume] in on in AM Serum or source Plasma data Potassium 3.5 - 5.1 mmoL/L Normal No Nov 30 informati 2017 6:30 [Moles/vo on in AM lume] in [...] 6:30 [Mass/vol FREEMAN AM ume] in [facility] Serum or 11/30/16 Plasma 0725 JS --trough CBC W Auto Differential panel in Blood Observa Value Referen Units Interpr Notes Date tion ce etation Range Basophils 0 - 0.2 K/MM3 Normal No Nov 30 informati 2016 6:30 [#/volume on in AM ] in source Blood by data Automated count Basophils 0.1 - 2.0 % Normal No Nov 30 informati 2016 6:30 leukocyte on in AM [...] K/mm3 Normal No Nov 30 es informati 2016 6:30 [#/volume on in [...] Monocytes 1.7 - 9.3 % High No Oct 22 /100 informati 2017 6:30 leukocyte on in [...] Leukocyte 4.8 - K/MM3 High No Nov 22 s 10.8 informati 2016 6:30 [#/volume on in AM ] in source Blood data CREATININE Observa Value Referen Units Interpr Notes Date tion ce etation Range Creatinin 0.70 - mg/dL High No Nov 29 e 1.30 informati 2017 9:15 [Mass/vol on in AM ume] in source Serum or data Plasma Creatinin 50 - 200 ML/MIN Normal No Nov 29 e renal informati 2017 9:15 clearance on in AM source predicted [...] RESULTS Nov 29 n 10.0 CALLED TO 2016 9:15 [Mass/vol AM ume] in PHARMACIS Serum or T: CHE Plasma 11/29/16 --trough [id number] alonzo Bacteria identified in Sputum by Culture Observa [...] Date tion ce etation Range COMMENTS TO TRANSLATOR AND INTERPRETER: CALL PHARMACIST NSH TEACHER WITH LEVEL Vancomyci 5.0 - mcg/mL High No Nov 27 n 10.0 informati 2016 7:25 [Mass/vol on in PM ume] in source Serum or data Plasma --trough Albumin [Mass/volume] in Body fluid Observa Value Referen Units Interpr Notes Date tion ce etation Range COMMENTS TO TRANSLATOR AND INTERPRETER: ascites Albumin . g/dL No Nov 27 [...] Date tion ce etation Range COMMENTS TO TRANSLATOR AND INTERPRETER: ascites Protein . g/dL No Nov 27 [...] the clinical context forinterp retation. Performed at: [facility] [id number] Vector Control Assistant: Salvador Martínez PhD, Phone: [phone] Glucose [Mass/volume] in Body fluid Observa Value Referen Units Interpr Notes Date tion ce etation Range COMMENTS TO TRANSLATOR AND INTERPRETER: ascites Glucose . mg/dL No Nov 27 [Mass/vol informati 2016 [facility]] in on in 12:00 PM Body source [...] gm/dL Low No Nov 26 [Mass/vol informati 2017 6:04 ume] in on in AM Serum or source Plasma data Alkaline 46 - 116 U/L High No Nov 26 phosphata informati 2016 6:04 se on in AM [Enzymati source c data activity/ volume] in Serum or Plasma Bilirubin 0.2 - 1.0 mg/dL High No Nov 26 .total informati 2017 6:04 [Mass/vol on in AM ume] in source Serum or data Plasma Urea 7 - 18 mg/dL High No Nov 26 nitrogen informati 2016 6:04 [Mass/vol on in AM ume] in source Serum or data Plasma Calcium 8.5 - mg/dL Low No Nov 18 [Mass/vol 10.1 informati 2017 6:04 ume] in on in AM Serum or source Plasma data Chloride 98 - 107 mmoL/L High No Nov 18 [Moles/vo informati 2016 6:04 lume] in on in AM Serum or source Plasma data Carbon 21.0 - mmoL/L Normal No Nov 18 dioxide, 32.0 informati 2017 6:04 total on in AM [Moles/vo source lume] in data Serum or Plasma Creatinin 0.70 - mg/dL Normal No Nov 18 e 1.30 informati 2017 6:04 [Mass/vol on in AM ume] in source Serum or data Plasma Creatinin 50 - 200 ML/MIN Normal No Nov 18 e renal informati 2017 6:04 clearance on in AM source predicted data by Cockcroft -Gault formula Estimated >60 ML/MIN No REFERENCE Nov 18 informati RANGE: 2017 6:04 glomerula on in >60 AM r source ML/MIN/1. filtratio data 73 SQUARE n rate METERSIf (GF this patient is -A merican, then multiply theresult by 1.210. Globulin 1.3 - 3.2 gm/dL High No Nov 18 [Mass/vol informati 2016 6:04 ume] in on in AM Serum source data Glucose 74 - 106 mg/dL Normal No Nov 18 [Mass/vol informati 2016 6:04 ume] in on in AM Serum or source Plasma data Potassium 3.5 - 5.1 mmoL/L Normal No Nov 18 informati 2016 6:04 [Moles/vo on in AM lume] in source Serum or data Plasma Sodium 136 - 145 mmoL/L Normal No Nov 18 [Moles/vo informati 2017 6:04 lume] in on in AM Serum or source Plasma data Aspartate 15 - 37 U/L High No Nov 18 informati 2017 6:04 aminotran on in AM sferase source [Enzymati data c activity/ volume] in Serum or Plasma Alanine 12 - 78 U/L Normal No Nov 18 aminotran informati 2017 6:04 sferase on in AM [Enzymati source c data activity/ volume] in Serum or Plasma Protein 6.4 - 8.2 gm/dL Normal No Nov 18 [Mass/vol informati 2016 6:04 ume] in on in AM Serum or source Plasma data CBC W Auto Differential panel in Blood Observa Value Referen Units Interpr Notes Date tion ce etation Range Basophils 0 - 0.2 K/MM3 Normal No Nov 18 informati 2016 6:04 [#/volume on in AM ] in source Blood by data Automated count Basophils 0.1 - 2.0 % Normal No Oct 18 /100 informati 2017 6:04 leukocyte on in AM s in source Blood by data Automated count Eosinophi 0.0 - 0.4 K/mm3 Normal No Nov 18 ls informati 2016 6:04 [#/volume on in AM ] in source Blood by data Automated count Eosinophi 0.1 - % Normal No Nov 18 ls/100 12.0 informati 2017 6:04 leukocyte on in AM s in source Blood by data Automated count Granulocy 1.3 - 8.0 K/mm3 High No Nov 18 kelley informati 2017 6:04 [#/volume on in AM ] in source Blood by data Automated count Granulocy 37.0 - % High No Nov 18 kelley/100 80.0 informati 2016 6:04 leukocyte on [...] K/mm3 Normal No Nov 18 es informati 2016 6:04 [#/volume on in AM ] in source Unspecifi data ed specimen by Automated count Lymphocyt 10 - 50 % Normal No Nov 18 es informati 2016 6:04 [#/volume on in [...] No Nov 18 te mean 97.8 informati 2016 6:04 corpuscul on in AM ar volume source [Entitic data volume] by Automated count Monocytes 0.1 - 1.0 K/mm3 Normal No Nov 18 informati 2016 6:04 [#/volume on in AM ] in source Blood by data Automated count Monocytes 1.7 - 9.3 % Normal No Nov 18 /100 informati 2016 6:04 leukocyte on in AM s in source Blood by data Automated count Platelet 7.4 - fl Normal No Nov 18 mean 10.4 informati 2016 6:04 volume on in AM [Entitic source volume] data in Blood by Automated count Platelets 142 - 424 K/mm3 No No Nov 18 informati informati 2016 6:04 [#/volume on in on in AM ] in source source Blood data data Erythrocy 4.6 - 6.2 M/mm3 Low No Nov 26 kelley informati 2016 6:04 [#/volume on in AM ] in source Amniotic data fluid Erythrocy 11.5 - % Normal No Nov 26 te 17.5 informati 2016 6:04 distribut on in AM ion width [...] - [facility] PM inal/Radha source line data [id number] [address]ata [address], in Serum [place], or [place] [id number] Vector Control Assistant: Salvador Martínez PhD, Phone: [phone] Alkaline 13 - 88 % No No Nov 24 phosphata informati informati 2017 1:30 se.liver/ on in on in PM Alkaline source source phosphata data data se.total in Serum or Plasma Alkaline 39 - 117 IU/L High Performed Nov 24 phosphata at: CB 2017 1:30 se - [facility] PM [Enzymati c [id number] activity/ 0 [address] volume] Road, in Serum [place], or [place] [id number] Vector Control Assistant: Salvador Martínez PhD, Phone: [phone] INR in Blood by Coagulation assay Observa Value Referen Units Interpr Notes Date tion ce etation Range COMMENTS TO TRANSLATOR AND INTERPRETER: COLLECTED BY PHYSICIAN IS PATIENT ON ANTICOAGULANTS? [...] Date tion ce etation Range COMMENTS TO TRANSLATOR AND INTERPRETER: COLLECTED BY PHYSICIAN Ammonia 19 - 54 umoL/L Low No Nov 24 [Mass/vol informati 2016 1:30 ume] in on in PM Unspecifi [...] 0.2 - 1.0 mg/dL High No Oct 16 .total informati 2017 6:20 [Mass/vol on [...] mmoL/L Normal No Nov 16 [Moles/vo informati 2017 6:20 lume] in on [...] Normal No Nov 16 e renal informati 2016 6:20 clearance [...] gm/dL High No Nov 16 [Mass/vol informati 2016 6:20 ume] in on in AM Serum source data Glucose 74 - 106 mg/dL High No Nov 16 [Mass/vol informati 2016 6:20 ume] in on in AM Serum or source Plasma data Potassium 3.5 - 5.1 mmoL/L Normal No Nov 16 informati 2017 6:20 [Moles/vo on in AM lume] in source Serum or data Plasma Sodium 136 - 145 mmoL/L Normal No Oct 16 [Moles/vo informati 2017 6:20 lume] in on in AM Serum or source Plasma data Aspartate 15 - 37 U/L High No Nov 16 informati 2017 6:20 aminotran on in AM sferase source [Enzymati data c activity/ volume] in Serum or Plasma Alanine 12 - 78 U/L No No Oct 16 aminotran informati informati 2017 6:20 sferase on in on in AM [...] - 2.0 % Normal No Nov 24 /100 informati 2017 6:20 leukocyte on in [...] K/mm3 Normal No Nov 24 es informati 2016 6:20 [#/volume on in AM ] in source Unspecifi data ed specimen by Automated count Lymphocyt 10 - 50 % Normal No Nov 24 es informati 2016 6:20 [#/volume on in AM ] in source Unspecifi data ed specimen by Automated count Erythrocy 27 - 31.2 pg Low No Nov 24 te mean informati 2016 6:20 corpuscul on in AM ar source hemoglobi data n [Entitic mass] Erythrocy 31.8 - g/dl Low No Nov 16 te mean 35.4 inform2016 6:20 corpuscul on in AM ar source hemoglobi data n concentra tion [Mass/vol ume] by Automated count Erythrocy 82.2 - fl Normal No Nov 16 te mean 97.8 inform2016 6:20 corpuscul on in AM ar volume source [Entitic data volume] by Automated count Monocytes 0.1 - 1.0 K/mm3 High No Nov 16 inform2016 6:20 [#/volume on in AM ] in source Blood by data Automated count Monocytes 1.7 - 9.3 % High No Nov 24 /100 informati 2016 6:20 leukocyte on in AM s in source Blood by data Automated count Platelet 7.4 - fl Normal No Nov 24 mean 10.4 informati 2016 6:20 volume on in AM [Entitic source volume] data in Blood by Automated count Platelets 142 - 424 K/mm3 No No Nov 16 informati informati 2016 6:20 [#/volume on in on in AM ] in source source Blood data data Erythrocy 4.6 - 6.2 M/mm3 Low No Nov 16 kelley informati 2016 6:20 [#/volume on in AM ] in source Amniotic data fluid Erythrocy 11.5 - % Normal No Nov 24 te 17.5 informati 2016 6:20 distribut on [...] 0 - 0.2 K/MM3 Normal No Nov 22 informati 2016 5:50 [#/volume on in AM ] in source Blood by data Automated count Basophils 0.1 - 2.0 % Normal No Nov 22 informati 2016 5:50 leukocyte on in AM [...] pg Low No Nov 14 te mean inform2016 5:50 corpuscul on in AM ar source [...] K/mm3 No No Nov 14 informati informati 2017 5:50 [#/volume on in on in AM ] in source source Blood data data Erythrocy 4.6 - 6.2 M/mm3 Low No Oct 14 kelley informati 2017 5:50 [#/volume on in AM ] in source Amniotic data fluid Erythrocy 11.5 - % Normal No Oct 14 te 17.5 informati 2017 5:50 distribut on in AM ion width source [Entitic data volume] by Automated count Leukocyte 4.8 - K/MM3 High No Oct 14 s 10.8 informati 2017 5:50 [#/volume on in AM ] in source Blood data Comprehensive metabolic 2000 panel in Serum or Plasma Observa Value Referen Units Interpr Notes Date tion ce etation Range Albumin/G 1.1 - 1.8 No Low No Oct 14 lobulin informati informati 2016 5:50 [Mass on in on in AM ratio] in source source Serum or data data Plasma Albumin 3.4 - 5.0 gm/dL Low No Oct 14 [Mass/vol informati 2016 5:50 ume] in on in AM Serum or source Plasma data Alkaline 46 - 116 U/L High No Oct 14 phosphata informati 2016 5:50 se on [...] Normal No Oct 14 dioxide, 32.0 informati 2017 5:50 total on in AM [Moles/vo source lume] in data Serum or Plasma Creatinin 0.70 - mg/dL Normal No Oct 14 e 1.30 informati 2017 5:50 [Mass/vol on in AM ume] in source Serum or data Plasma Creatinin 50 - 200 ML/MIN Normal No Oct 14 e renal informati 2017 5:50 clearance on in AM source predicted data by Cockcroft -Gault formula Estimated >60 ML/MIN No REFERENCE Oct 14 informati RANGE: 2016 5:50 glomerula on [...] 3.5 - 5.1 mmoL/L Normal No Nov 222016 5:50 [Moles/vo on in AM lume] in source Serum or data Plasma Sodium 136 - 145 mmoL/L Normal No Nov 14 [Moles/vo informati 2016 5:50 lume] in on in AM Serum or source Plasma data Aspartate 15 - 37 U/L No No Nov 22 informati informati 2016 5:50 aminotran on in [...] Appeara TURBID CLEAR No No No Nov 13 nce of informa informa informa 2016 Urine [...] NEG mg/dL High No Nov 21 [Mass/vol 2016 ume] in on in 10:55 AM Urine by source Automated data test strip Specific 1.005 - No Normal No Nov 21 gravity 1.030 2016 of Urine on in on in 10:55 AM source source data data Urobili 4.0 NEG E.U./dL No No Nov 21 nogen informa informa 2016 [Presen tion in tion in 10:55 ce] in source source AM Urine data data by Test strip Amylase [Enzymatic activity/volume] in Serum or Plasma Observa Value Referen Units Interpr Notes Date tion ce etation Range COMMENTS TO TRANSLATOR AND INTERPRETER: PLEASE USE BLOOD ALREADY DRAWN Amylase 25 - 115 U/L Normal No Nov 21 [Enzymati 2016 c on in 10:50 AM activity/ source volume] data in Serum or Plasma Lipase [Enzymatic activity/volume] in Serum or Plasma Observa Value Referen Units Interpr Notes Date ti ce etation Range COMMENTS TO TRANSLATOR AND INTERPRETER: PLEASE USE BLOOD ALREADY DRAWN Lipase 73 - 393 U/L Normal No Nov 21 [Enzymati inform2016 c on in 10:50 AM activity/ source volume] data in Serum or Plasma CBC W Auto Differential panel in Blood Observa Value Referen Units Interpr Notes Date ti ce etation Range Basophils 0 - 0.2 K/MM3 Normal No Nov [id number] [#/volume on in 10:50 AM ] in source Blood by data Automated count Basophils 0.1 - 2.0 % Normal No Nov [id number] leukocyte on [...] 37.0 - % High No Nov 21 [email or web address] 80.0 2016 leukocyte on in 10:50 AM [...] 50 % Low No Nov 21 es inform2016 [#/volume on [...] - 9.3 % Normal No Nov 21 /100 2016 [...] 6.2 M/mm3 Low No Nov 21 kelley inform2016 [#/volume on in 10:50 AM ] in source Amniotic data fluid Erythrocy 11.5 - % Normal No Nov 21 te 17.5 2016 distribut on in 10:50 AM ion width source [Entitic data volume] by Automated count Leukocyte 4.8 - K/MM3 High No Nov 13 s 10.8 informati 2016 [#/volume on in 10:50 AM [...] 8 % Normal No Nov 21 ls.band informati 2016 form/100 on in 10:50 AM leukocyte source s in data Blood by Automated count Eosinophi 0 - 3 % Normal No Nov 21 ls/100 inform2016 leukocyte on in 10:50 AM s [...] 9 % Normal No Nov 21 /100 inform2016 leukocyte on in 10:50 AM s in source Blood by data Automated count Platele NORMAL No No No No Nov 21 ts informa informa informa inform2016 [Presen tion in tion in tion in tion in 10:50 ce] in source source source source AM Blood data data data data by Light microsc opy Neutrophi 42 - 76 % High No Nov 21 ls 2016 [#/volume on in 10:50 AM ] in source Blood by data Automated count Cells No #CELLS No No Nov 21 Counted informati informati 2016 Total [#] on in on in on in 10:50 AM in Blood source source source data data data Comprehensive metabolic 2000 panel in Serum or Plasma Observa Value Referen Units Interpr Notes Date tion ce etation Range Albumin/G 1.1 - 1.8 No Low No Nov 21 lobulin informati 2016 [Mass on in on in 10:50 AM ratio] in source source Serum or data data Plasma Albumin 3.4 - 5.0 gm/dL Low No Nov 21 [Mass/vol informati 2017 ume] in on in 10:50 AM Serum or source Plasma data Alkaline 46 - 116 U/L High No Nov 13 phosphata informati 2017 se on in 10:50 AM [Enzymati source c data activity/ volume] in Serum or Plasma Bilirubin 0.2 - 1.0 mg/dL High No Nov 13 .total informati 2016 [Mass/vol on in 10:50 AM ume] in source Serum or data Plasma Urea 7 - 18 mg/dL High No Nov 13 nitrogen informati 2017 [Mass/vol on in 10:50 AM ume] in [...] Carbon 21.0 - mmoL/L Normal No Nov 13 dioxide, 32.0 informati 2016 total on in [...] 74 - 106 mg/dL High No Nov 13 [Mass/vol informati 2017 ume] in on in 10:50 AM Serum or source Plasma data Potassium 3.5 - 5.1 mmoL/L Normal No Oct 13 informati 2017 [Moles/vo on in 10:50 AM lume] in source Serum or data Plasma Sodium 136 - 145 mmoL/L Low No Nov 13 [Moles/vo informati 2017 lume] in on in 10:50 AM Serum [...] No No Nov 07 nogen informa informa 2016 [Presen tion in tion in ce] in source source Urine data data by Test strip Leukocy [10 O wbc/hpf No No Sep kelley wbc/hpf informa informa 2017 [#/volu ; [...] strip Erythro TRACE-I NEG No No No Sep cytes NTACT informa informa informa 2016 [Presen tion in tion in tion in ce] in source source source Urine data data data Color YELLOW YELLOW No No No Sep of informa informa informa 2017 Urine tion in tion in tion in source source source data data data Glucose NEG No No No Sep [Mass/vol informati informati informati 2017 ume] in on in on in on in Urine by source source source Test data data data strip Ketones NEGATIV NEG mg/dL No No Sep E informa informa 2016 [Presen tion in tion in ce] in source source Urine data data by Automat ed test strip Mucus TRACE NEG No Abnorma No Sep [Presen informa l informa 2016 ce] in tion in tion in Urine source source sedimen data data t by Light microsc opy Nitrite NEGATIV NEG No No No Sep E informa informa informa 2016 [Presen tion [...] No No Sep 29 nogen informa informa 2016 [Presen tion in [...] No Sep 4 kelley wbc/hpf informa informa 2016 [#/volu ; 5 tion in tion in [...]
--- OUTSIDE RECORDS SUMMARY | 2016-12-27 17:28 | External Medical Summary Rpt ---
[...] the clinical context forinterp retation. Performed at: [address] [id number] Handler: Salvador Martínez PhD, Phone: [phone] Glucose [Mass/volume] in Body fluid Observa [...] Date tion ce etation Range COMMENTS TO METAL OFF BEARER: CALL PHARMACIST HAND MOUNTER WITH LEVEL Vancomyci 5.0 - mcg/mL High No Nov 27 n 10.0 informati 2016 7:25 [Mass/vol on in PM ume] in source Serum or data Plasma --trough Albumin [Mass/volume] in Body fluid Observa Value Referen Units Interpr Notes Date tion ce etation Range COMMENTS TO METAL OFF BEARER: ascites Albumin . g/dL No Nov 27 [...] Date tion ce etation Range COMMENTS TO METAL OFF BEARER: ascites Protein . g/dL No Nov 27 [...] the clinical context forinterp retation. Performed at: [facility] [id number] K9 Handler: Salvador Martínez PhD, Phone: [phone] Glucose [Mass/volume] in Body fluid Observa Value Referen Units Interpr Notes Date tion ce etation Range COMMENTS TO METAL OFF BEARER: ascites Glucose . mg/dL No Nov 27 [Mass/vol informati 2016 [facility]] in on in 12:00 PM Body [...] - [facility] PM inal/Radha source line data [id number] [address]ata [address], in Serum [place], or [place] [id number] [id number] Handler: Salvador Matrínez PhD, Phone: [phone] Alkaline 13 - 88 % No No Nov 24 phosphata informati informati 2017 1:30 se.liver/ on in on in PM Alkaline source source phosphata data data se.total in Serum or Plasma Alkaline 39 - 117 IU/L High Performed Nov 24 phosphata at: CB 2017 1:30 se - [facility] PM [Enzymati c [id number] activity/ 0 [address] volume] Road, in Serum [place], or [place] [id number] [id number] Handler: Salvador Martínez PhD, Phone: [phone] INR in Blood by Coagulation assay Observa Value Referen Units Interpr Notes Date tion ce etation Range COMMENTS TO METAL OFF BEARER: COLLECTED BY PHYSICIAN IS PATIENT ON ANTICOAGULANTS? [...] Date tion ce etation Range COMMENTS TO METAL OFF BEARER: COLLECTED BY PHYSICIAN Ammonia 19 - 54 [...] Date tion ce etation Range COMMENTS TO METAL OFF BEARER: PLEASE USE BLOOD ALREADY DRAWN Amylase 25 - 115 U/L Normal No Nov 21 [Enzymati 2016 c on in 10:50 AM activity/ source volume] data in Serum or Plasma Lipase [Enzymatic activity/volume] in Serum or Plasma Observa Value Referen Units Interpr Notes Date ti ce etation Range COMMENTS TO METAL OFF BEARER: PLEASE USE BLOOD ALREADY DRAWN Lipase 73 [...]
[2016-12-27 18:01] LABS: LYMPH # 1.1 K/mm3 (0.7-4.5); LYMPH % 4.5 % (10-50)
[2016-12-27 18:02] LABS: HEMOGLOBIN 11.5 g/dL (14.1-18.0)
[2016-12-27 18:14] LABS: BUN 53 mg/dL (7-18)
[2016-12-27 18:15] LABS: GFR (ESTIMATED) 23 ML/MIN (>60); NEUTROPHILS 89 % (42-76)
--- NOTE | 2016-12-27 18:36 | RADIOLOGY REPORT PS360 ---
CT HEAD WITHOUT CONTRAST CT BONE WINDOWS included ORDERING PHYSICIAN : Cecil Sanches MD PATIENT AGE: 71 years GENDER: Male PROCEDURE: 2 sets of axial images headwithout contrast were obtained through the head due to the patient's of motion. HISTORY: AMS altered mental status. Patient confused and yelling throughout scan COMPARISON: Previous CT head 03/28/1949 FINDINGS: A between the 2 sets of of axial images through the head, there is no no acute intracranial findings. No hemorrhage. . No subdural nor extra-axial collection. No mass effect or mass lesion Diffuse cerebral atrophy which seems to progressed even since 2014. Deep white matter small vessel ischemic changes most evident periventricular region. 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 This is unchanged since 2015 CT abdomen 2013 MRI.. No territorial infarct.. Minimal physiologic calcification of basal ganglia is stable.. The mild dilatation of lateral ventricles reflect the cerebral atrophy. Posterior fossa unchanged. CP angles clear. IACs normal symmetric. Mastoid air cells unremarkable. Visualized portions of the paranasal sinuses clear. Skull intact. IMPRESSION: No acute intracranial findings. No significant change since 2014 CT head without contrast. Cerebral atrophy with chronic small vessel deep white matter changes. Stable old lacunar at the right periventricular region.
[2016-12-27 18:37] LABS: AEROMONAS NOT DETECTED (NOT DETECTE); ASTROVIRUS NOT DETECTED (NOT DETECTE); CYCLOSPORA CAYETANENSIS NOT DETECTED (NOT DETECTE); E COLI O157 NOT DETECTED (NOT DETECTE); ENTEROAGGREGATIVE E COLI NOT DETECTED (NOT DETECTE); ENTEROPATHOGENIC E COLI NOT DETECTED (NOT DETECTE); ENTEROTOXIGENIC E COLI NOT DETECTED (NOT DETECTE); NOROVIRUS NOT DETECTED (NOT DETECTE); SAPOVIRUS NOT DETECTED (NOT DETECTE); SHIGA-LIKE TOXIN PROD. E COLI NOT DETECTED (NOT DETECTE); SHIGELLA/ENTEROINVASIVE E COLI NOT DETECTED (NOT DETECTE); VIBRIO CHOLERAE NOT DETECTED (NOT DETECTE)
--- NOTE | 2016-12-27 18:57 | Emergency Room Report ---
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 N Clinical Suspician of Infection? N Mental Status: 1 - Regular (Normal Baseline) Sepsis Risk:Low Sepsis Risk Have you (or family members/close friends) recently traveled outside the [place]? N If Yes, where/when: Have you had exposure to infectious disease within the past month? TB? Other? Specify: Patient was brought in for yelling more than normal the family states they have made multiple attempts to sedate him at the [facility] with Haldol and Ativan and has been unsuccessful. He state the patient is usually noncommunicative the last time he told him something was that he had whole body aches several days ago. Patient has been recurrently [facility] at the [facility] which is unusual for him the family denies any cough nausea vomiting has had diarrhea/loose stools. Story of present illness is limited secondary to patient's mental status he does not verbally respond to me ALLERGIES Coded Allergies: No Known Allergies (12/27/16) Home Medications Active Scripts Ferrous Sulfate (Ferrous Sulfate 325MG) 325 MG PO BID #30 TAB Ref 4 Prov: 09/04/15 ASPIRIN (Aspirin) 81 MG PO DAILY #30 TABLET Ref 2 Prov: 09/04/15 Furosemide (Lasix 40MG) 40 MG PO DAILY #30 TAB Ref 3 Prov: 12/04/16 NYSTATIN (Nystatin Topical Powder 30GM) 0 GM TP QID #1 POW Ref 2 Prov: 12/04/16 Famotidine 20 MG PO DAILY #30 TAB Ref 2 Prov: 12/04/16 Spironolactone (Aldactone 100MG) 100 MG PO DAILY #30 TAB Ref 2 Prov: 12/04/16 Diltiazem Hcl (Cardizem Generic 60MG Tab) 60 MG OR TID #90 TAB Ref 2 Prov: 12/04/16 Potassium Chloride (Klor-Con M20) 40 MEQ PO BID #60 TAB Ref 2 Prov: 12/04/16 PSEUDOEPHEDRINE HCL (Sudogest 30MG) 30 MG PO TID #30 TAB Prov: 12/16/16 GUAIFENESIN/DEXTROMETHORPHAN (Tussin Dm Cough Syrup) 10 ML PO Q6HP PRN COUGH #240 ML Prov: 12/16/16 BENZONATATE (Benzonatate) 100 MG PO QIDP PRN COUGH #30 CAPSULE Prov: 12/16/16 Reported Medications Clopidogrel Bisulfate (Plavix) 75 MG PO DAILY #30 TAB Ref 2 Cyanocobalamin (Vitamin B-12) (B-12) 500 MCG PO DAILY Metoprolol Tartrate 25 MG PO BID Acetaminophen (Acetaminophen Extra Strength) 1,000 MG PO Q6HP PRN PAIN Haloperidol (Haloperidol 5MG. Tablet) 5 MG OR QHS Hydrocortisone (Scalacort) 30 ML TP BID IPRATROPIUM/ALBUTEROL SULFATE (Iprat-Albut 0.5-3(2.5) MG/3 Ml) 3 ML IH TID CHOLECALCIFEROL (VITAMIN D3) (Vitamin D) 1 TAB PO DAILY Risperidone (Risperdal 0.5 Mg Tablet) 0.5 MG PO BID Lorazepam (Ativan) 0.5 MG PO QID PRN ANXIETY History Medical History General CAD? Yes Angina: No CO: No Hypertension? Yes Hyperlipidemia? Yes CHF? Yes DVT? No PE? No COPD? No Asthma? No Anemia? Yes GERD? Yes GI Bleed? Yes Hernia? No Thyroid Problems? No Hypothyroidism? No CVA? No Seizures? No Diabetes? No Renal Insuffiency? Yes End Stage Renal Disease? No UTI? No Stones? No GB Disease: No Nephritic Syndrome? No Asplenia? No Hepatitis? No Sickle Cell Disease? No Arthritis? No Cataracts? Yes Glaucoma? No MRSA? No TB? No Anxiety? Yes Depression? No Cancer? No More? Yes Additional hx: 1. SHARKO FOOT 2. AFIB 3. TIA 4. MENTAL RETARDATION Immunization Hx Ped.Immunizations UTD Yes DT/Tetanus > 10 Years Ago Flu Refused Pneumonia Received In Past Surgical Hx Previous Surgery?Y RIGHT KNEE APPY DULCE CATARACTS CARDIAC CATH WITH STENT Family History Family Hx Diabetes No CAD No Hypertension Yes Hyperlipidemia No Cancer No TB No Social History Smoking Hx Smoker: Never Smoker Tobacco: No Type N/A Packs/day N/A Are you/the child exposed to second-hand smoke: No Alcohol Alcohol: No Review of Systems All Other Systems Reviewed and Negative Comment Review of systems Limited secondary to patient's mental status Physical Exam Vital Signs Vital Signs Date Time Temp Pulse Resp B/P Pulse O2 O2 Flow FiO2 Ox Delivery Rate 12/279 97.9 88 22 142/7 96 General Appearance: Nontoxic Head: Normocephalic, without obvious abnormality, atraumatic. Eyes: conjunctiva/corneas clear ENT: Mucous membranes dry. Neck: No jugular venous distention. Cardiac: regular rate and rhythm Lungs: Diminished rhonchi to auscultation bilaterally Abdomen: Nontender, Nondistended, positive bowel sounds, no rebound : No CVA tenderness Extremities: no edema Musculoskeletal: No chest wall tenderness Skin: No rashes or lesions to exposed skin. Neurologic: Alert. No gross focal deficits Psychiatric: flat to agitated affect (Verónica LLOYD, [place]) General Appearance fatigued Respiratory Status No: respiratory distress. Cardiovascular no JVD Neurologic alert Medical Decision Making LABS/Meds/Orders Pt receiving controlled substance in ED? No Comment 7pm wilbur Carrillo MD accepts, dw lactic, cr,dw bnp, wbc, cxr, ct abdomen pending. desires ns 100 hour for now. 739 had rechecked ordered ekg. afib rvr. ER electrocardiogram read by myself rate 177 atrial fibrillation with rapid ventricular response here is 114 QT corrected 477 some LEFT axis deviation besides with atrial fibrillation rapid ventricular response and nonspecific electrocardiogram ER electrocardiogram read by myself as a rate of 1 8188 atrial fibrillation with rapid ventricular response nonspecific electrocardiogram otherwise IMPRESSION 1. Increasing now large right pleural effusion., since 11/21/2016. This increased volume right chest shifts the heart leftward.. Compression atelectasis & consolidation more pronounced at right RLL as well. . Recommend PA and lateral chest to further evaluate this feature Prior Left pleural effusion & LLL airspace disease has regressed since 11/21/1969. Left pleural effusion has resolved only Only minor residual infiltrate LLL 2. Cirrhotic liver-with diffuse ascites throughout abdomen & pelvis.. Moderate amount ascites-but There is been Decreased overall volume of ascites abdomen & pelvis since 11/21/2016. . 3. Prominent edematous appearing wall thickening large bowel most evident at right & transverse colon; and lesser degree left colon, & rectosigmoid. Suspect developing colitis- most likely infectious colitis, ( but noting the extensive atherosclerotic calcifications & disease-difficult to exclude ischemic change). 4. Distended gallbladder. No gallstones evident no ductal dilatation . Consider gallbladder ultrasound in follow-up if significant elevated phosphatase along with the elevated LFTs <Electronically signed by Ricardo Roman MD in [facility]> 12/27/16 [address] Carrillo the multiple findings, atrial fibrillation with rapid ventricular response of distended gallbladder, the colitis, desires IV Flagyl added on. I discussed with the family member in depth that the patient is critically ill and may not survive this as we try to treat one thing we may make the other condition worse. Results/Orders Laboratory Tests 12/27/161833: Stl Aeromonas (PCR) Pending, Stl Cyclospora species Pending, Stool Rotavirus ( PCR) Pending, Stool Astrovirus (PCR) Pending, Stool Campylobacter PCR Pending, Stool Cryptosporidium PCR Pending, Stl E. histolytica PCR Pending, Stool Giardia Lamblia PCR Pending, Stl P. shigelloides PCR Pending, Stool Sapovirus (PCR) Pending, Stool Vibrio (PCR) Pending, Stl Vibrio cholerae PCR Pending, Stl Norovirus GI/GII PCR Pending, Adenovirus (PCR) Pending, C. difficile Tox (PCR) Pending, E. coli (PCR) Pending, Salmonella (PCR) Pending, Yersinia (PCR) Pending , Urine Color YELLOW, Urine Appearance SL CLOUDY, Urine pH 5.0, Ur Specific [place] 1.025, Urine Protein NEGATIVE, Urine Ketones NEGATIVE, Urine Blood 3+ H , Urine Nitrate NEGATIVE, Urine Bilirubin NEGATIVE, Urine Urobilinogen 0.2, Ur Leukocyte Esterase NEGATIVE, Urine RBC TNTC, Amorphous Sediment 3+, Urine Glucose NEGATIVE 12/27/161744: Lipase 53 L 12/27/161744: Lactic Acid 2.3 H 12/27/161744: Ammonia 33 12/27/161744: Sodium 135 L, Potassium 5.0, Chloride 103, Carbon Dioxide 25, BUN 53 H, Creatinine 2.7 H, Estimated GFR (MDRD) 23, Glucose 113 H, Calcium 8.8, Total Bilirubin 0.9, AST 20, ALT 20, Alkaline Phosphatase 310 H, Troponin I 0.04, B- Natriuretic Peptide 521 H, Total Protein 7.3, Albumin 1.6 L, Globulin 5.7 H, Albumin/Globulin Ratio 0.3 L, WBC 23.0 *H, RBC 4.38 L, Hgb 11.5 L, Hct 37.5 L, MCV 85.6, RDW 18.1 H, Plt Count 278, MPV 7.4, Gran % 79.9, Gran # 18.4 H, Total Counted 100, Lymphocytes % 4.5 L, Monocytes % 15.1 H, Eosinophils % 0.2, Basophils % 0.3, Neutrophils 89 H, Band Neutrophils 5, Lymphocytes (Manual) 4 L, Lymphocytes # 1.1, Monocytes (Manual) 2, Monocytes # 3.5 H, Eosinophils # 0.0, Basophils # 0.1, Platelet Estimate NORMAL, PUBS MCHC 30.4 L, MCH 26.1 L Current Medication Orders Sig/Oleg Start time Last Medication Dose Route Stop Time Status Admin Piperacillin Sod/ 3.375 GM ONCE ONE 12/27 1830 DC 12/27 Tazobactam Sod IV 12/27 1859 1913 Sodium Chloride 50 ML Sodium Chloride 1,000 ML .Q1H1M 12/27 1830 CAN IV 12/27 1930 Sodium Chloride 10 ML PRN PRN 12/27 1830 DC IV 12/28 1822 Sodium Chloride 1,000 ML .Q10H 12/27 1830 AC IV 12/28 0624 Sodium Chloride 10 ML PRN PRN 12/27 1830 AC IV 12/28 1824 Hydromorphone HCl 1 MG ONCE ONE 12/27 1745 DC 12/27 IV 12/27 1746 1900 Ondansetron HCl 4 MG 12/27 1745 UNi IV Orders Procedure Date/time Status DIET-NOTHING BY MOUTH 12/28 B Active DIARRHEA PANEL, PCR 12/27 1824 Active URINARY CATHETER INSERT 12/27 1821 Active CULTURE, BLOOD 12/27 1821 Active LACTIC ACID 12/27 1821 Complete DIFFERENTIAL-WBC 12/[address] ABD/PELVIS REQ 12/[address] HEAD REQ 11/18 1732 Complete CHEST-PORTABLE 12/27 173 Active URINALYSIS/COMPLETE 12/27 173 Complete TROPONIN I 12/27 173 Complete LIPASE 12/27 173 Complete CBC WITH AUTO DIFF 12/27 173 Complete CHEM 12 PROFILE 12/27 173 Complete BRAIN NATRIURETIC PEPTIDE 12/27 173 Complete AMMONIA 12/27 1732 Complete Departure Departure Time of Disposition 1855 Disposition Still a Patient Clinical Impression Primary Impression: Altered mental state Qualifiers: Altered mental status type: unspecified Qualified Code: R41.82 - Altered mental status, unspecified Secondary Impressions: Acute kidney injury Atrial fibrillation with rapid ventricular response Colitis Pneumonia Qualifiers: Pneumonia type: due to unspecified organism Laterality: right Lung location: lower lobe of lung Qualified Code: J18.1 - Lobar pneumonia, unspecified organism Condition STABLE ED Critical Care Critical Care Yes Time spent 30-74 min Vital system(s) involved: Circulatory Failure, Central Nervous System, Metabolic Failure, Renal Failure I was present at bedside for Coordinating pt's care, Interpreting EKGs/Strips , During my initial exam, Reviewing lab results, Reviewing old records, Discussing pt condition, For re-examinations, Examining radiographs at 1958
[2016-12-27 18:58] LABS: URINE BILIRUBIN - DIPSTICK NEGATIVE (NEG); URINE BLOOD 3+ (NEG)
--- OUTSIDE RECORDS SUMMARY | 2016-12-27 19:01 | External Medical Summary Rpt | CCD ---
Author Author , ELIGIO Organization ELIGIO Address Unknown Phone [email or web address] Care Team Providers Care Contact Lens Lathe Operator Name Role Phone Anne Traore APRN, Unavailable Unavailable Anne Husain MD, Unavailable Unavailable Harinder Husain MD Purpose Continuity of Care Document - 05-03-2012 through 2016 Problems Code Diagnosis DOS Provider Status [id number] Headache [facility] [id number] Cervicogeni [facility] [address] [place] hypertensio [facility] 458.8 Drug-induce [facility] [id number] Anxiety [facility] 729.82 Leg cramp [facility] 780.2 Syncope [facility] D64.9 ANEMIA, UNSPECIFIED E87.5 HYPERKALEMI A I10 [...] ENCOUNTER FOR OTHER PREPROCEDUR AL EXAMINATION 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 complet leukocy 017 K/MM3 8 ed kelley 17:45 count (number /volume ) Automat = 0.1 0-0.2 complet ed 017 K/MM3 ed blood 17:45 basophi l count (count/ vo Baso % = 0.3 % 0.1-2.0 complet 017 ed 17:45 Automat = 0.0 0.0-0.4 complet ed 017 K/mm3 ed blood 17:45 eosinop hil count Automat = 0.2 % 0.1-12. complet ed 017 0 ed blood 17:45 eosinop hils/10 0 leukocy t Blood = 18.4 1.3-8.0 complet granulo 017 K/mm3 ed cytes 17:45 automat ed count (numb Granulo = 79.9 37.0-80 complet cyte 017 % .0 ed percent 17:45 age Blood = 37.5 42.0-52 complet hematoc 017 % .0 ed rit 17:45 (volume fractio n) Blood = 11.5 14.1-18 complet hemoglo 017 g/dL .0 ed bin 17:45 measure ment (mass/v olum Absolut = 1.1 0.7-4.5 complet e 017 K/mm3 ed lymphoc 17:45 yte count Lymphoc = 4.5 % 10-50 complet yte 017 ed count, 17:45 blood, automat ed Mean 11-18-2 = 26.1 27-31.2 complet corpusc 017 pg ed ular 17:45 hemoglo bin (MCH) determ Automat = 30.4 31.8-35 complet ed 017 g/dl .4 ed erythro 17:45 cyte mean corpusc ular h Automat = 85.6 82.2-97 complet ed 017 fl .8 ed erythro 17:45 cyte mean corpusc ular v Absolut = 3.5 0.1-1.0 complet e 017 K/mm3 ed monocyt 17:45 e count Anson % 2 = 15.1 1.7-9.3 complet 017 % ed 17:45 Automat 2 = 7.4 7.4-10. complet ed 017 fl 4 ed blood 17:45 platele t mean volume austyn Differential panel, method unspecified - (12-27-2016 17:45) Automat 12-27-2 = 5 % 0-8 complet ed 017 ed blood 17:45 band neutrop hil percent a LYMPH 4 % 10-50 complet 017 ed 17:45 Monocyt = 2 % 2-9 complet e % 017 ed 17:45 Platele NORMAL complet t 017 NORMAL ed estimat 17:45 L e Neutrop = 89 % 42-76 complet hil 017 ed count 17:45 Blood = 100 complet total 017 #CELLS ed cell 17:45 count Ammonia measurement (12-27-2016 17:45) Ammonia 12-27-2 = 33 19-54 complet 017 umoL/L ed measure 17:45 ment Brain natriuretic peptide (12-27-2016 17:45) Brain 12-27-2 = 521 0-100 complet natriur 017 pg/mL ed etic 17:45 peptide Comprehensive metabolic panel (12-27-2016 17:45) Serum 12-27-2 = 0.3 1.1-1.8 complet or 017 ed plasma 17:45 albumin /globul in mass ra Serum 12-27-2 = 1.6 3.4-5.0 complet or 017 gm/dL ed plasma 17:45 albumin measure ment (mas Serum 12-27-2 = 310 46-116 complet or 017 U/L ed plasma 17:45 alkalin e phospha tase austyn Serum 2 = 0.9 0.2-1.0 complet or 017 mg/dL ed plasma 17:45 total bilirub in measure m Serum = 53 7-18 complet or 017 mg/dL ed plasma 17:45 urea nitroge n measure men Serum 12-27-2 = 8.8 8.5-10. complet or 017 mg/dL 1 ed plasma 17:45 calcium measure ment (mas Serum = 103 98-107 complet or 017 mmoL/L ed plasma 17:45 chlorid e measure ment (mo Carbon = 25 21.0-32 complet dioxide 017 mmoL/L .0 ed 17:45 measure ment Serum = 2.7 0.70-1. complet or 017 mg/dL 30 ed plasma 17:45 creatin ine measure ment ( Estimat = 23 >60 complet ed 017 ML/MIN ed glomeru 17:45 lar filtrat ion rate (GF Comment: REFERENCE RANGE: >60 ML/MIN/1.73 SQUARE METERS Comment: If this patient is -Bruneian, then multiply the Comment: result by 1.210. Serum = 5.7 1.3-3.2 complet globuli 017 gm/dL ed n 17:45 measure ment (mass/v olume) Serum = 113 74-106 complet or 017 mg/dL ed plasma 17:45 glucose measure ment (mas Serum = 5.0 3.5-5.1 complet potassi 017 mmoL/L ed um 17:45 measure ment Serum = 135 136-145 complet sodium 017 mmoL/L ed measure 17:45 ment Serum = 20 15-37 complet or 017 U/L ed plasma 17:45 asparta te aminotr ansfera ALT = 20 12-78 complet (SGPT) 017 U/L ed ser/wolfgang 17:45 s Protein = 7.3 6.4-8.2 complet total 017 gm/dL ed ser/wolfgang 17:45 s Serum or plasma troponin i.cardiac measu (12-27-2016 17:45) Serum 12-27-2 = 0.04 0.00-0. complet or 017 ng/mL 06 ed plasma 17:45 troponi n i.cardi ac measu Differential panel, method unspecified - (12-27-2016 17:45) LYMPH 4 % 10% - Low complet 017 50% ed 17:45 Platele NORMAL complet ts 017 ed [Presen 17:45 ce] in Blood by Light microsc opy Comprehensive metabolic panel (12-16-2016 06:37) Serum = 0.2 1.1-1.8 complet or 017 [...] SQUARE METERS Comment: If this patient is -Bruneian, then multiply the Comment: result by 1.210. Serum = 5.1 1.3-3.2 complet globuli 017 gm/dL ed n 06:37 measure ment (mass/v olume) Serum = 86 74-106 complet or 017 mg/dL ed plasma 06:37 glucose measure ment (mas Serum = 4.5 3.5-5.1 complet potassi 017 mmoL/L ed um 06:37 measure ment Serum = 134 136-145 complet sodium 017 mmoL/L ed measure 06:37 ment Serum = 42 15-37 complet or 017 U/L ed plasma 06:37 asparta te aminotr ansfera ALT = 37 12-78 complet (SGPT) 017 U/L ed ser/wolfgang 06:37 s Protein = 6.3 6.4-8.2 complet total 017 gm/dL ed ser/wolfgang 06:37 s CBC w auto diff (12-16-2016 06:37) Blood = 31.5 42.0-52 complet hematoc 017 % .0 ed rit 06:37 (volume fractio n) Blood = 9.1 14.1-18 complet hemoglo 017 g/dL .0 ed bin 06:37 measure ment (mass/v olum Absolut = 1.1 0.7-4.5 complet e 017 K/mm3 ed lymphoc 06:37 yte count Lymphoc = 12.1 10-50 complet yte 017 % ed count, 06:37 blood, automat ed Mean = 25.5 27-31.2 complet corpusc 017 pg ed ular 06:37 hemoglo bin (MCH) determ Automat = 28.7 31.8-35 complet ed 017 g/dl .4 ed erythro 06:37 cyte mean corpusc ular h Automat = 88.7 82.2-97 complet ed 017 fl .8 ed erythro 06:37 cyte mean corpusc ular v Absolut = 1.9 0.1-1.0 complet e 017 K/mm3 ed monocyt 06:37 e count Anson % = 21.5 1.7-9.3 complet 017 % [...] 017 % .0 ed percent 06:37 age Differential panel, method unspecified - (12-16-2016 06:37) [...] 017 K/mm3 ed monocyt 07:10 e count Anson % = 15.5 1.7-9.3 complet 017 % ed 07:10 Automat = 7.5 7.4-10. complet ed 017 fl 4 ed blood 07:10 platele t mean volume austyn Blood = 255 142-424 complet platele 017 K/mm3 ed t count 07:10 Red = 3.80 4.6-6.2 complet blood 017 M/mm3 ed cell 07:10 count Basic metabolic panel (12-15-2016 07:10) Serum = 35 7-18 complet or 017 mg/dL ed plasma 07:10 urea nitroge n measure men Serum = 8.4 8.5-10. complet or 017 mg/dL 1 ed plasma 07:10 calcium measure ment (mas Serum = 103 98-107 complet or 017 mmoL/L ed plasma 07:10 chlorid e measure ment (mo Carbon = 27 21.0-32 complet dioxide 017 mmoL/L .0 ed 07:10 measure ment Serum = 1.6 0.70-1. complet or 017 mg/dL 30 ed plasma 07:10 creatin ine measure ment ( Estimat = 52 50-200 complet ion of 017 ML/MIN ed creatin 07:10 ine renal clearan ce Estimat = 43 >60 complet ed 017 ML/MIN ed glomeru 07:10 lar filtrat ion rate (GF Comment: REFERENCE RANGE: >60 ML/MIN/1.73 SQUARE METERS Comment: If this patient is -Bruneian, then multiply the Comment: result by 1.210. Serum = 93 74-106 complet or 017 mg/dL ed plasma 07:10 glucose measure ment (mas Serum = 4.4 3.5-5.1 complet potassi 017 mmoL/L [...] 017 K/mm3 ed monocyt 06:40 e count Anson % = 11.7 1.7-9.3 complet 017 % [...] SQUARE METERS Comment: If this patient is -Bruneian, then multiply the Comment: result by 1.210. [...] vol Brain natriuretic peptide (12-13-2016 23:35) Brain = 402 0-100 complet natriur 017 pg/mL [...] SQUARE METERS Comment: If this patient is -Bruneian, then multiply the Comment: result by 1.210. [...] bin 23:35 measure ment (mass/v olum Absolut = 1.2 [...] 017 K/mm3 ed monocyt 23:35 e count Anson % = 12.1 1.7-9.3 complet 017 % [...] context for Comment: interpretation. Comment: Performed at: [facility] Comment: [id number], [place] [id number] Comment: Machine Operator Cane Cutter: Salvador Martínez PhD, Phone: [phone] Body fluid glucose assay (12-03-2016 12:45) Body [...] 017 K/mm3 ed monocyt 06:30 e count Anson % 10-25-2 = 16.9 1.7-9.3 complet 017 % ed 06:30 Automat 2 = 7.6 7.4-10. complet ed [...] meghan 017 mcg/mL 0 ed trough 13:30 Comprehensive metabolic panel (12-01-2016 04:20) Serum 2 = 0.3 1.1-1.8 complet or 017 ed [...] mmoL/L .0 ed 04:20 measure ment Serum 10-23-2 = 1.2 0.70-1. complet or 017 mg/dL 30 ed plasma 04:20 creatin ine measure ment ( Estimat = 90 50-200 complet ion of 017 ML/MIN ed creatin 04:20 ine renal clearan ce Estimat = 59 >60 complet ed 017 ML/MIN ed glomeru 04:20 lar filtrat ion rate (GF Comment: REFERENCE RANGE: >60 ML/MIN/1.73 SQUARE METERS Comment: If this patient is -Bruneian, then multiply the Comment: result by 1.210. [...] total 017 gm/dL ed ser/wolfgang 04:20 s CBC w auto diff (12-01-2016 04:20) Automat [...] 017 K/mm3 ed monocyt 04:20 e count Anson % = 15.9 1.7-9.3 complet 017 % [...] total 017 #CELLS ed cell 04:20 count Differential panel, method unspecified - (12-01-2016 04:20) Anisocy 1+ complet tosis 017 ed [Presen 04:20 ce] in Blood Hypochr 2+ complet omia 017 ed [Presen 04:20 ce] in Blood LYMPH 8 % 10% - Low complet 017 50% ed 04:20 Platele 2 NORMAL complet ts 017 ed [Presen 04:20 [...] 017 K/mm3 ed monocyt 06:30 e count Anson % = 15.8 1.7-9.3 complet 017 % [...] erythro 06:30 cyte distrib ution width Blood 11-30- = 12.8 4.8-10. complet leukocy 017 K/MM3 8 ed kelley 06:30 count (number /volume ) Basic metabolic panel (11-30-2016 06:30) Serum 11-30-2 = 37 7-18 complet or 017 mg/dL ed plasma 06:30 urea nitroge n measure men Serum 11-30-2 = 8.6 8.5-10. complet or 017 mg/dL 1 ed plasma 06:30 calcium measure ment (mas Serum = 108 98-107 complet or 017 mmoL/L ed plasma 06:30 chlorid e measure ment (mo Carbon = 27 21.0-32 complet dioxide 017 mmoL/L .0 ed 06:30 measure ment Serum 2 = 1.3 0.70-1. complet or 017 mg/dL 30 ed plasma 06:30 creatin ine measure ment ( Estimat = 83 50-200 complet ion of 017 ML/MIN ed creatin 06:30 ine renal clearan ce Estimat = 54 >60 complet ed 017 ML/MIN ed glomeru 06:30 lar filtrat ion rate (GF Comment: REFERENCE RANGE: >60 ML/MIN/1.73 SQUARE METERS Comment: If this patient is -Bruneian, then multiply the Comment: result by 1.210. Serum = 115 74-106 complet or 017 mg/dL ed plasma 06:30 glucose measure ment (mas Serum 2 = 4.6 3.5-5.1 complet potassi 017 mmoL/L ed um 06:30 measure ment Serum 11-30- = 140 136-145 complet sodium 017 mmoL/L ed measure 06:30 ment Vancomycin trough (11-30-2016 06:30) Vancomy --2 = 19.3 5.0-10. complet meghan 017 mcg/mL 0 ed trough 06:30 Comment: CALLED TO Jeff [facility] 11/30/16 0725 CREATININE (11-29-2016 09:15) Serum 11-29-2 = 1.4 [...] SQUARE METERS Comment: If this patient is -Bruneian, then multiply the Comment: result by 1.210. [...] WILL HOLD YEAST FOR 5 DAYS. Sputum [id number] complet culture 017 5 Yeast ed 02:35 [...] ied in Sputum by Culture Body fluid albumin measurement (mass/vol (11-27-2016 12:00) Comment: COMMENTS TO CLINICAL DOCUMENTATION IMPROVEMENT SPECIALIST: ascites Body = 0.5 . complet fluid [...] fluid, total (11-27-2016 12:00) Comment: COMMENTS TO CLINICAL DOCUMENTATION IMPROVEMENT SPECIALIST: ascites Protein = 1.7 . complet , [...] context for Comment: interpretation. Comment: Performed at: [facility] Comment: [id number], [place] [id number] Comment: Machine Operator Cane Cutter: Salvador Martínez PhD, Phone: [phone] Body fluid glucose assay (11-27-2016 12:00) Comment: COMMENTS TO CLINICAL DOCUMENTATION IMPROVEMENT SPECIALIST: ascites Body = 123 . complet fluid [...] body fluid (11-27-2016 12:00) Comment: COMMENTS TO CLINICAL DOCUMENTATION IMPROVEMENT SPECIALIST: ascites BODY COMMENT complet FLUID 017 ed [...] BRAYDEN Escamilla Comment: 11/27/16 0809 Edgardo Polanco CBC w auto diff (11-26-2016 06:04) Automat = 0.0 0-0.2 complet ed 017 K/MM3 ed blood 06:04 basophi l count (count/ vo Automat = 0.1 0.0-0.4 complet ed 017 K/mm3 ed blood 06:04 eosinop hil count Automat = 0.4 % 0.1-12. complet ed 017 0 ed blood 06:04 eosinop hils/10 0 leukocy t Blood = 8.5 1.3-8.0 complet granulo 017 K/mm3 ed cytes 06:04 automat ed count (numb Granulo = 80.3 37.0-80 complet cyte 017 % .0 ed percent 06:04 age Blood = 33.4 42.0-52 complet hematoc 017 % .0 ed rit 06:04 (volume fractio n) Blood = 9.7 14.1-18 complet hemoglo 017 g/dL .0 ed bin 06:04 measure ment (mass/v olum Absolut = 1.1 0.7-4.5 complet e 017 K/mm3 ed lymphoc 06:04 yte count Lymphoc = 10.2 10-50 complet yte 017 % ed count, 06:04 blood, automat ed Mean = 25.2 27-31.2 complet corpusc 017 pg ed ular 06:04 hemoglo bin (MCH) determ Automat = 28.9 31.8-35 complet ed 017 g/dl .4 ed erythro 06:04 cyte mean corpusc ular h Automat = 87.2 82.2-97 complet ed 017 fl .8 ed erythro 06:04 cyte mean corpusc ular v Absolut = 0.9 0.1-1.0 complet e 017 K/mm3 ed monocyt 06:04 e count Anson % = 8.8 % 1.7-9.3 complet 017 ed 06:04 Automat = 8.2 7.4-10. complet ed 017 fl 4 ed blood 06:04 platele t mean volume austyn Blood = 357 142-424 complet platele 017 K/mm3 ed t count 06:04 Red = 3.83 4.6-6.2 complet blood 017 M/mm3 ed cell 06:04 count Automat = 16.9 11.5-17 complet ed 017 % .5 ed erythro 06:04 cyte distrib ution width Blood = 10.6 4.8-10. complet leukocy 017 K/MM3 8 ed kelley 06:04 count (number /volume ) Baso % = 0.2 % 0.1-2.0 complet 017 ed 06:04 Comprehensive metabolic panel (11-26-2016 06:04) Serum = 0.2 1.1-1.8 complet or 017 ed plasma 06:04 albumin /globul in mass ra Serum = 1.3 3.4-5.0 complet or 017 gm/dL ed plasma 06:04 albumin measure ment (mas Serum = 467 46-116 complet or 017 U/L ed plasma 06:04 alkalin e phospha tase austyn Serum = 1.1 0.2-1.0 complet or 017 mg/dL ed plasma 06:04 total bilirub in measure m Serum = 42 7-18 complet or 017 mg/dL ed plasma 06:04 urea nitroge n measure men Serum = 8.1 8.5-10. complet or 017 mg/dL 1 ed plasma 06:04 calcium measure ment (mas Serum = 108 98-107 complet or 017 mmoL/L ed plasma 06:04 chlorid e measure ment (mo Carbon = 24 21.0-32 complet dioxide 017 mmoL/L .0 ed 06:04 measure ment Serum 2 = 1.2 0.70-1. complet or 017 mg/dL 30 ed plasma 06:04 creatin ine measure ment ( Estimat = 95 50-200 complet ion of 017 ML/MIN ed creatin 06:04 ine renal clearan ce Estimat = 59 >60 complet ed 017 ML/MIN ed glomeru 06:04 lar filtrat ion rate (GF Comment: REFERENCE RANGE: >60 ML/MIN/1.73 SQUARE METERS Comment: If this patient is -Bruneian, then multiply the Comment: result by 1.210. Serum = 5.6 1.3-3.2 complet globuli 017 gm/dL ed n 06:04 measure ment (mass/v olume) Serum = 103 74-106 complet or 017 mg/dL ed plasma 06:04 glucose measure ment (mas Serum = 4.7 3.5-5.1 complet potassi 017 mmoL/L ed um 06:04 measure ment Serum = 138 136-145 complet sodium 017 mmoL/L ed measure 06:04 ment Serum = 39 15-37 complet or 017 U/L ed plasma 06:04 asparta te aminotr ansfera ALT = 36 12-78 complet (SGPT) 017 U/L ed ser/wolfgang 06:04 s Protein = 6.9 6.4-8.2 complet total 017 gm/dL ed ser/wolfgang 06:04 s Urinalysis with microscopy (11-25-2016 13:05) Comment: Collected by nurse? Y Comment: Hold specimen in OE? N Bacteri 4+ 4+ L O complet a 017 ed detecti 13:05 on in urine sedimen t by Urine 3+ 3+ L NEG complet blood 017 ed detecti 13:05 on Urine DK YELLOW complet color 017 YELLOW ed 13:05 DK YELLOW L Glucose = NEG complet ur 017 NEGATIV ed test 13:05 E strip Hyaline 5-10 NONE complet casts 017 5-10 L ed detecti 13:05 #/lpf on in urine sedimen Urine NEGATIV NEG complet ketones 017 E ed 13:05 NEGATIV detecti E L on by mg/dL automat ed kelley Mucus NEGATIV NEG complet detecti 017 E ed on in 13:05 NEGATIV urine E L sedimen t by lig Mucus 2+ 2+ L NONE complet detecti 017 ed on in 13:05 urine sedimen t by lig Urine NEGATIV NEG complet nitrite 017 E ed 13:05 NEGATIV detecti E L on by test strip Urine = 5.5 5.0-8.5 complet pH 017 ed 13:05 Urine = TRACE NEG complet protein 017 mg/dL ed 13:05 measure ment by automat ed t Erythro 5-10 0 complet cytes 017 5-10 L ed detecti 13:05 rbc/hpf on in urine sedimen t Urine > = 1.005-1 complet specifi 017 1.030 .030 ed c 13:05 gravity measure ment [place] NONE OCC complet s 017 NONE L ed epithel 13:05 #/hpf ial cells detecti on in u Urine 4.0 4.0 NEG complet urobili 017 L ed nogen 13:05 E.U./dL detecti on by test str Urine 3 - 5 O complet leukocy 017 wbc/hpf ed kelley 13:05 count (number /volume ) Urine CLOUDY CLEAR complet appeara 017 CLOUDY ed nce 13:05 L determi nation Urine NEGATIV NEG complet total 017 E ed bilirub 13:05 NEGATIV in E L detecti on by test Comment: BILIRUBIN CONFIRMED WITH ICTOTEST:NEGATIVE Gamma glutamyl transferase (GGT) measure (11-24-2016 13:30) Gamma = 147 15-85 complet glutamy 017 U/L ed l 13:30 transfe rase (GGT) measure Ammonia measurement (11-24-2016 13:30) Comment: COMMENTS TO CLINICAL DOCUMENTATION IMPROVEMENT SPECIALIST: COLLECTED BY PHYSICIAN Ammonia = 17 19-54 complet 017 umoL/L ed measure 13:30 ment Whole blood INR measurement (11-24-2016 13:30) Comment: COMMENTS TO CLINICAL DOCUMENTATION IMPROVEMENT SPECIALIST: COLLECTED BY PHYSICIAN Comment: IS PATIENT ON ANTICOAGULANTS? N Whole = 1.16 0.9-1.1 complet blood 017 ed INR 13:30 measure ment Comment: INDICATION INR RANGE Comment: Comment: THERAPY FOR DVT, PE, ATRIAL FIB; 2.0 - 3.0 Comment: PROPHYLAXIS FOR VTE Comment: Comment: THERAPY FOR MECHANICAL HEART 2.5 - 3.5 Comment: VALVE; PREVENTION OF SYSTEMIC Comment: EMBOLISM SECONDARY TO AMI Prothro --2 = 12.5 9.4-11. complet mbin 017 SECONDS 8 ed time 13:30 (PT) in platele t poor p MARIANGEL (11-24-2016 13:30) Comment: COMMENTS TO CLINICAL DOCUMENTATION IMPROVEMENT SPECIALIST: COLLECTED BY PHYSICIAN MARIANGEL = 26 14-82 complet 017 U/L ed 13:30 Comment: Performed at: [facility] Comment: [id number], [place] [id number] Comment: Machine Operator Cane Cutter: Salvador Martínez PhD, Phone: [phone] Alk Phos Isoenzyme (11-24-2016 13:30) Serum 16-2 = 50 % 12-68 complet or 017 ed plasma 13:30 bone alkalin e phospha tas Serum = 0 % 0-18 complet or 017 ed plasma 13:30 intesti nal alkalin e phos Comment: Performed at: [facility] Comment: [id number], [place] [id number] Comment: Machine Operator Cane Cutter: Salvador Martínez PhD, Phone: [phone] Serum 16-2 = 50 % 13-88 complet or 017 ed plasma 13:30 liver alkalin e phospha ta Serum = 438 39-117 complet or 017 IU/L ed plasma 13:30 alkalin e phospha tase austyn Comment: Performed at: [facility] Comment: [id number], [place] [id number] Comment: Machine Operator Cane Cutter: Salvador Martínez PhD, Phone: [phone] Hepatitis B profile (11-24-2016 13:30) Comment: COMMENTS TO CLINICAL DOCUMENTATION IMPROVEMENT SPECIALIST: COLLECTED BY PHYSICIAN HBcAb Negativ Negativ complet IgM 017 e e ed 13:30 Negativ e L Serum 2 < 0.1 0.0-0.9 complet or 017 ed plasma 13:30 hepatit is C virus antibo Comment: INFCE Result Units: s/co ratio Comment: Negative: < 0.8 Comment: Indeterminate: 0.8 - 0.9 Comment: Positive: > 0.9 Comment: Comment: The CDC recommends that a positive HCV antibody result Comment: be followed up with a HCV Nucleic Acid Amplification Comment: test ([id number]). Comment: Performed at: [facility] Comment: [id number], [place] [id number] Comment: Machine Operator Cane Cutter: Salvador Martínez PhD, Phone: [phone] Serum Negativ Negativ complet hepatit 017 e e ed is B 13:30 Negativ virus e L surface antigen Hepatit Negativ Negativ complet is A 017 e e ed IgM 13:30 Negativ e L Serum IgA antibody assay (11-24-2016 13:30) Comment: COMMENTS TO CLINICAL DOCUMENTATION IMPROVEMENT SPECIALIST: COLLECTED BY PHYSICIAN Serum = 703 61-437 complet IgA 017 mg/dL ed antibod 13:30 y assay Serum or plasma IgG measurement (mass/vo (11-24-2016 13:30) Comment: COMMENTS TO CLINICAL DOCUMENTATION IMPROVEMENT SPECIALIST: COLLECTED BY PHYSICIAN Serum = 1984 700-160 complet or 017 mg/dL 0 ed plasma 13:30 IgG measure ment (mass/v o Quantitative serum IgM measurement (11-24-2016 13:30) Comment: COMMENTS TO CLINICAL DOCUMENTATION IMPROVEMENT SPECIALIST: COLLECTED BY PHYSICIAN Quantit = 48 15-143 complet ative 017 mg/dL ed serum 13:30 IgM measure ment Comment: Performed at: [facility] Comment: [id number], [place] [id number] Comment: Machine Operator Cane Cutter: Salvador Martínez PhD, Phone: [phone] M2 mitochondrial IgG ab (11-24-2016 13:30) Comment: COMMENTS TO CLINICAL DOCUMENTATION IMPROVEMENT SPECIALIST: COLLECTED BY PHYSICIAN M2 < 20.0 0.0-20. complet mitocho 017 Units 0 ed ndrial 13:30 IgG ab Comment: Negative 0.0 - 20.0 Comment: Equivocal 20.1 - 24.9 Comment: Positive >24.9 Comment: Comment: Mitochondrial (M2) Antibodies are found in 90-96% of Comment: patients with primary biliary cirrhosis. Comment: Performed at: [facility] Comment: [id number], [place] [id number] Comment: Machine Operator Cane Cutter: Salvador Martínez PhD, Phone: [phone] Serum or plasma actin IgG antibody assay (11-24-2016 13:30) Comment: COMMENTS TO CLINICAL DOCUMENTATION IMPROVEMENT SPECIALIST: COLLECTED BY PHYSICIAN Serum = 7 0-19 [...] 22% of patients with primary biliary cirrhosis. CBC w auto diff (11-24-2016 06:20) Automat = 0.0 0-0.2 complet ed 017 K/MM3 ed blood 06:20 basophi l count (count/ vo Baso % = 0.1 % 0.1-2.0 complet 017 ed 06:20 Automat = 0.1 0.0-0.4 complet ed 017 K/mm3 ed blood 06:20 eosinop hil count Automat = 0.5 % 0.1-12. complet ed 017 0 ed blood 06:20 eosinop hils/10 0 leukocy t Blood = 8.0 1.3-8.0 complet granulo 017 K/mm3 ed cytes 06:20 automat ed count (numb Granulo = 76.8 37.0-80 complet cyte 017 % .0 ed percent 06:20 age Blood = 32.3 42.0-52 complet hematoc 017 % .0 ed rit 06:20 (volume fractio n) Blood = 9.5 14.1-18 complet hemoglo 017 g/dL .0 ed bin 06:20 measure ment (mass/v olum Absolut = 1.2 0.7-4.5 complet e 017 K/mm3 ed lymphoc 06:20 yte count Lymphoc = 11.6 10-50 complet yte 017 % ed count, 06:20 blood, automat ed Mean = 25.6 27-31.2 complet corpusc 017 pg ed ular 06:20 hemoglo bin (MCH) determ Automat = 29.4 31.8-35 complet ed 017 g/dl .4 ed erythro 06:20 cyte mean corpusc ular h Automat = 87.3 82.2-97 complet ed 017 fl .8 ed erythro 06:20 cyte mean corpusc ular v Absolut = 1.1 0.1-1.0 complet e 017 K/mm3 ed monocyt 06:20 e count Anson % = 10.8 1.7-9.3 complet 017 % ed 06:20 Automat = 7.8 7.4-10. complet ed 017 fl 4 ed blood 06:20 platele t mean volume austyn Blood = 268 142-424 complet platele 017 K/mm3 ed t count 06:20 Red = 3.70 4.6-6.2 complet blood 017 M/mm3 ed cell 06:20 count Automat = 17.1 11.5-17 complet ed 017 % .5 ed erythro 06:20 cyte distrib ution width Blood = 10.4 4.8-10. complet leukocy 017 K/MM3 8 ed kelley 06:20 count (number /volume ) Comprehensive metabolic panel (11-24-2016 06:20) Serum = 0.3 1.1-1.8 complet or 017 ed plasma 06:20 albumin /globul in mass ra Serum = 1.4 3.4-5.0 complet or 017 gm/dL ed plasma 06:20 albumin measure ment (mas Serum = 443 46-116 complet or 017 U/L ed plasma 06:20 alkalin e phospha tase austyn Serum = 1.1 0.2-1.0 complet or 017 mg/dL ed plasma 06:20 total bilirub in measure m Serum = 39 7-18 complet or 017 mg/dL ed plasma 06:20 urea nitroge n measure men Serum = 7.9 8.5-10. complet or 017 mg/dL 1 ed plasma 06:20 calcium measure ment (mas Carbon = 22 21.0-32 complet dioxide 017 mmoL/L .0 ed 06:20 measure ment Serum = 1.1 0.70-1. complet or 017 mg/dL 30 ed plasma 06:20 creatin ine measure ment ( Estimat = 102 50-200 complet ion of 017 ML/MIN ed creatin 06:20 ine renal clearan ce Estimat = 66 >60 complet ed 017 ML/MIN ed glomeru 06:20 lar filtrat ion rate (GF Comment: REFERENCE RANGE: >60 ML/MIN/1.73 SQUARE METERS Comment: If this patient is -Bruneian, then multiply the Comment: result by 1.210. Serum = 5.3 1.3-3.2 complet globuli 017 gm/dL ed n 06:20 measure ment (mass/v olume) Serum = 112 74-106 complet or 017 mg/dL ed plasma 06:20 glucose measure ment (mas Serum = 4.2 3.5-5.1 complet potassi 017 mmoL/L ed um 06:20 measure ment Serum = 136 136-145 complet sodium 017 mmoL/L ed measure 06:20 ment Serum = 42 15-37 complet or 017 U/L ed plasma 06:20 asparta te aminotr ansfera ALT = 34 12-78 complet (SGPT) 017 U/L ed ser/wolfgang 06:20 s Protein = 6.7 6.4-8.2 complet total 017 gm/dL ed ser/wolfgang 06:20 s Serum = 106 98-107 complet or 017 mmoL/L ed plasma 06:20 chlorid e measure ment (mo Gram negative automated antibiotic susceptibility test (11-23-2016 08:25) Erythro 11-23-2 = 0.5 complet mycin 017 ug/ml ed suscept 08:25 ibility test by minimum inhibit ory concent ration Nitrofu 11-23-2 <= 16 complet rantoin 017 ug/ml ed 08:25 suscept ibility test by minimum inhibit ory concent ration Gentami 11-23-2 <= 0.5 complet meghan 017 ug/ml ed [...] negative automated antibiotic susceptibility test (11-23-2016 08:24) Clindam 10-15-2 <= 0.25 complet ycin 017 [...] concent ration Antibiotic sensitivity studies (11-23-2016 08:22) Trimeth 10-15-2 <= 20 complet oprim/s 017 [...] test by minimum inhibit ory concent ration Cefazol 10-15-2 <= 4 complet in 017 ug/ml ed suscept 08:22 ibility test by minimum inhibit ory concent ration Extende 10-15-2 = ug/ml complet d 017 ed spectru 08:22 m beta lactama se (ESBL) produci ng bacteri a suscept ibility test by minimum inhibit ory Ertapen 10-15-2 <= 0.5 complet em 017 [...] test by minimum inhibit ory concent ration Piperac 10-15-2 <= 4 complet illin/t 017 ug/ml ed azobact 08:22 am suscept ibility test by minimum inhibit ory concent ration Comprehensive metabolic panel (11-22-2016 05:50) Serum = 1.5 3.4-5.0 complet or 017 gm/dL ed plasma 05:50 albumin measure ment (mas Serum = 326 46-116 complet or 017 U/L ed plasma 05:50 alkalin e phospha tase austyn Serum = 1.0 0.2-1.0 complet or 017 mg/dL ed plasma 05:50 total bilirub in measure m Serum = 39 7-18 complet or 017 mg/dL ed plasma 05:50 urea nitroge n measure men Serum = 0.3 1.1-1.8 complet or 017 ed plasma 05:50 albumin /globul in mass ra Serum = 7.7 8.5-10. complet or 017 mg/dL 1 ed plasma 05:50 calcium measure ment (mas Serum = 104 98-107 complet or 017 mmoL/L ed plasma 05:50 chlorid e measure ment (mo Carbon = 25 21.0-32 complet dioxide 017 mmoL/L .0 ed 05:50 measure ment Serum = 1.3 0.70-1. complet or 017 mg/dL 30 ed plasma 05:50 creatin ine measure ment ( Estimat = 85 50-200 complet ion of 017 ML/MIN ed creatin 05:50 ine renal clearan ce Estimat = 54 >60 complet ed 017 ML/MIN ed glomeru 05:50 lar filtrat ion rate (GF Comment: REFERENCE RANGE: >60 ML/MIN/1.73 SQUARE METERS Comment: If this patient is -Bruneian, then multiply the Comment: result by 1.210. Serum = 4.5 1.3-3.2 complet globuli 017 gm/dL ed n 05:50 measure ment (mass/v olume) Serum = 107 74-106 complet or 017 mg/dL ed plasma 05:50 glucose measure ment (mas Serum = 4.6 3.5-5.1 complet potassi 017 mmoL/L ed um 05:50 measure ment Serum = 137 136-145 complet sodium 017 mmoL/L ed measure 05:50 ment Serum = 29 15-37 complet or 017 U/L ed plasma 05:50 asparta te aminotr ansfera ALT = 25 12-78 complet (SGPT) 017 U/L ed ser/wolfgang 05:50 s Protein = 6.0 6.4-8.2 complet total 017 gm/dL ed ser/wolfgang 05:50 s CBC w auto diff (11-22-2016 05:50) Automat = 0.0 0-0.2 complet ed 017 K/MM3 ed blood 05:50 basophi l count (count/ vo Baso % = 0.2 % 0.1-2.0 complet 017 ed 05:50 Automat 10-14-2 = 0.0 0.0-0.4 complet ed 017 K/mm3 ed blood 05:50 eosinop hil count Automat = 0.1 % 0.1-12. complet ed 017 0 ed blood 05:50 eosinop hils/10 0 leukocy t Blood = 9.2 1.3-8.0 complet granulo 017 K/mm3 ed cytes 05:50 automat ed count (numb Granulo = 84.5 37.0-80 complet cyte 017 % .0 ed percent 05:50 age Blood = 31.1 42.0-52 complet hematoc 017 % .0 ed rit 05:50 (volume fractio n) Blood = 9.1 14.1-18 complet hemoglo 017 g/dL .0 ed bin 05:50 measure ment (mass/v olum Absolut = 0.9 0.7-4.5 complet e 017 K/mm3 ed lymphoc 05:50 yte count Lymphoc = 8.3 % 10-50 complet yte 017 ed count, 05:50 blood, automat ed Mean = 25.1 27-31.2 complet corpusc 017 pg ed ular 05:50 hemoglo bin (MCH) determ Automat = 29.2 31.8-35 complet ed 017 g/dl .4 ed erythro 05:50 cyte mean corpusc ular h Automat = 85.9 82.2-97 complet ed 017 fl .8 ed erythro 05:50 cyte mean corpusc ular v Absolut = 0.8 0.1-1.0 complet e 017 K/mm3 ed monocyt 05:50 e count Anson % = 6.9 % 1.7-9.3 complet 017 ed 05:50 Automat = 7.7 7.4-10. complet ed 017 fl 4 ed blood 05:50 platele t mean volume austyn Blood = 199 142-424 complet platele 017 K/mm3 ed t count 05:50 Red = 3.62 4.6-6.2 complet blood 017 M/mm3 ed cell 05:50 count Automat = 17.4 11.5-17 complet ed 017 % .5 ed erythro 05:50 cyte distrib ution width Blood = 10.9 4.8-10. complet leukocy 017 K/MM3 8 ed kelley 05:50 count (number /volume ) Blood lactic acid measurement (moles/vol (11-21-2016 11:40) Blood = 1.6 0.4-2.0 complet lactic 017 mmol/L ed acid 11:40 measure ment (moles/ vol Aerobic bacterial blood culture (11-21-2016 11:40) Comment: Is patient on antibiotics? N Aerobic RESULTS complet 017 CALLED ed bacteri 11:40 TO: Horace angulo REESE blood RN culture 7 0450 Paul Jenkins Aerobic bacterial blood culture (11-21-2016 11:40) Comment: Is patient on antibiotics? N Aerobic RESULTS complet 017 : ed bacteri 11:40 STAPHYL al OCOCCUS blood AUREUS culture Aerobic RESULTS complet 017 CALLED ed bacteri 11:40 TO: Dominique angulo REESE blood RN culture 7 0455 Paul Jenkins Aerobic [id number] complet 017 ed bacteri 11:40 Staphyl al ococcus blood aureus culture SCT SAUR STAPHYL OCOCCUS AUREUS L Blood anaerobic culture (11-21-2016 11:40) Comment: Is patient on antibiotics? N Blood RESULTS complet anaerob 017 : ed ic 11:40 culture Blood REFER complet anaerob 017 TO ed ic 11:40 AEROBIC culture BLOOD CULTURE Blood RESULTS complet anaerob 017 CALLED ed ic 11:40 TO: culture DERRICK.CAC H 7 0828 Giancarlo,Ri chard Blood [id number] complet anaerob 017 ed ic 11:40 Staphyl culture ococcus aureus SCT SAUR STAPHYL OCOCCUS AUREUS L Urinalysis with microscopy (11-21-2016 10:55) Urine TURBID CLEAR complet appeara 017 TURBID ed nce 10:55 L determi nation Bacteri 4+ 4+ L O complet a 017 ed detecti 10:55 on in urine sedimen t by Urine NEGATIV NEG complet total 017 E ed bilirub 10:55 NEGATIV in E L detecti on by test Urine 3+ 3+ L NEG complet blood 017 ed detecti 10:55 on Urine DK YELLOW complet color 017 YELLOW ed 10:55 DK YELLOW L Glucose = NEG complet ur 017 NEGATIV ed test 10:55 E strip Urine NEGATIV NEG complet ketones 017 E ed 10:55 NEGATIV detecti E L on by mg/dL automat ed kelley Mucus 1+ 1+ L NEG complet detecti 017 ed on in 10:55 urine sedimen t by lig Urine POSITIV NEG complet nitrite 017 E ed 10:55 POSITIV detecti E L on by test strip Urine = 7.5 5.0-8.5 complet pH 017 ed 10:55 Urine 1 + NEG complet protein 017 mg/dL ed 10:55 measure ment by automat ed t Erythro 20-50 0 complet cytes 017 20-50 L ed detecti 10:55 on in rbc/hpf urine sedimen t Urine = 1.010 1.005-1 complet specifi 017 .030 ed c 10:55 gravity measure ment [place] 3-5 3-5 OCC complet s 017 L ed epithel 10:55 #/hpf ial cells detecti on in u Urine 4.0 4.0 NEG complet urobili 017 L ed nogen 10:55 E.U./dL detecti on by test str Urine 20 - 50 O complet leukocy 017 ed kelley 10:55 wbc/hpf count (number /volume ) Urine culture (11-21-2016 10:55) Urine [id number] complet culture 017 07 ed 10:55 Escheri anne coli SCT EC ESCHERI ANNE COLI L Urinalysis dipstick W Reflex Microscopic panel in [...] 10:55 ce] in Urine by Test strip Comprehensive metabolic panel (11-21-2016 10:50) Serum = 0.3 1.1-1.8 complet or 017 ed plasma 10:50 albumin /globul in mass ra Serum = 2.0 3.4-5.0 complet or 017 gm/dL ed plasma 10:50 albumin measure ment (mas Serum = 405 46-116 complet or 017 U/L ed plasma 10:50 alkalin e phospha tase austyn Serum = 1.5 0.2-1.0 complet or 017 mg/dL ed plasma 10:50 total bilirub in measure m Serum = 41 7-18 complet or 017 mg/dL ed plasma 10:50 urea nitroge n measure men Serum = 8.7 8.5-10. complet or 017 mg/dL 1 ed plasma 10:50 calcium measure ment (mas Serum = 100 98-107 complet or 017 mmoL/L ed plasma 10:50 chlorid e measure ment (mo Carbon = 27 21.0-32 complet dioxide 017 mmoL/L .0 ed 10:50 measure ment Serum = 1.5 0.70-1. complet or 017 mg/dL 30 ed plasma 10:50 creatin ine measure ment ( Estimat = 70 50-200 complet ion of 017 ML/MIN ed creatin 10:50 ine renal clearan ce Estimat = 46 >60 complet ed 017 ML/MIN ed glomeru 10:50 lar filtrat ion rate (GF Comment: REFERENCE RANGE: >60 ML/MIN/1.73 SQUARE METERS Comment: If this patient is -Bruneian, then multiply the Comment: result by 1.210. Serum = 6.4 1.3-3.2 complet globuli 017 gm/dL ed n 10:50 measure ment (mass/v olume) Serum = 108 74-106 complet or 017 mg/dL ed plasma 10:50 glucose measure ment (mas Serum = 4.7 3.5-5.1 complet potassi 017 mmoL/L ed um 10:50 measure ment Serum = 134 136-145 complet sodium 017 mmoL/L ed measure 10:50 ment Serum = 39 15-37 complet or 017 U/L ed plasma 10:50 asparta te aminotr ansfera ALT = 35 12-78 complet (SGPT) 017 U/L ed ser/wolfgang 10:50 s Protein = 8.4 6.4-8.2 complet total 017 gm/dL ed ser/wolfgang 10:50 s Cardiac enzymes (11-21-2016 10:50) Serum = 1.6 0-4.0 complet or 017 U/L ed plasma 10:50 creatin e kinase MB (CK-M Serum < 0.5 0.0-3.6 complet or 017 ng/mL ed plasma 10:50 creatin e kinase MB measu Serum = 32 39-308 complet or 017 U/L ed plasma 10:50 creatin e kinase measure m Serum < 0.02 0.00-0. complet or 017 ng/mL 06 ed plasma 10:50 troponi n i.cardi ac measu CBC w auto diff (11-21-2016 10:50) Automat = 0.0 0-0.2 complet ed 017 K/MM3 ed blood 10:50 basophi l count (count/ vo Baso % = 0.2 % 0.1-2.0 complet 017 ed 10:50 Automat = 0.0 0.0-0.4 complet ed 017 K/mm3 ed blood 10:50 eosinop hil count Automat = 0.1 % 0.1-12. complet ed 017 0 ed blood 10:50 eosinop hils/10 0 leukocy t Blood = 11.9 1.3-8.0 complet granulo 017 K/mm3 ed cytes 10:50 automat ed count (numb Granulo = 88.9 37.0-80 complet cyte 017 % .0 ed percent 10:50 age Blood = 37.8 42.0-52 complet hematoc 017 % .0 ed rit 10:50 (volume fractio n) Blood = 11.1 14.1-18 complet hemoglo 017 g/dL .0 ed bin 10:50 measure ment (mass/v olum Absolut = 0.7 0.7-4.5 complet e 017 K/mm3 ed lymphoc 10:50 yte count Lymphoc = 5.5 % 10-50 complet yte 017 ed count, 10:50 blood, automat ed Mean = 25.5 27-31.2 complet corpusc 017 pg ed ular 10:50 hemoglo bin (MCH) determ Automat = 29.3 31.8-35 complet ed 017 g/dl .4 ed erythro 10:50 cyte mean corpusc ular h Automat = 86.9 82.2-97 complet ed 017 fl .8 ed erythro 10:50 cyte mean corpusc ular v Absolut = 0.7 0.1-1.0 complet e 017 K/mm3 ed monocyt 10:50 e count Anson % = 5.3 % 1.7-9.3 complet 017 ed 10:50 Automat = 7.3 7.4-10. complet ed 017 fl 4 ed blood 10:50 platele t mean volume austyn Blood = 267 142-424 complet platele 017 K/mm3 ed t count 10:50 Red = 4.35 4.6-6.2 complet blood 017 M/mm3 ed cell 10:50 count Automat = 17.2 11.5-17 complet ed 017 % .5 ed erythro 10:50 cyte distrib ution width Blood = 13.3 4.8-10. complet leukocy 017 K/MM3 8 ed kelley 10:50 count (number /volume ) Differential panel, method unspecified - (11-21-2016 10:50) Automat = 2 % 0-8 complet ed 017 ed blood 10:50 band neutrop hil percent a Manual = 1 % 0-3 complet blood 017 ed eosinop 10:50 hils/10 0 leukocy kelley Hypochr 1+ 1+ L complet omatic 017 ed red 10:50 blood cell detecti on LYMPH 6 % 10-50 complet 017 ed 10:50 Monocyt = 2 % 2-9 complet e % 017 ed 10:50 Platele NORMAL complet t 017 NORMAL ed estimat 10:50 L e Neutrop = 89 % 42-76 complet hil 017 ed count 10:50 Blood = 100 complet total 017 #CELLS ed cell 10:50 count Blood 1+ 1+ L complet anisocy 017 ed tosis 10:50 detecti on Amylase ser/plas (11-21-2016 10:50) Comment: COMMENTS TO CLINICAL DOCUMENTATION IMPROVEMENT SPECIALIST: PLEASE USE BLOOD ALREADY DRAWN Amylase 10-13-2 = 41 25-115 complet 017 U/L ed ser/wolfgang 10:50 s Lipase measurement (11-21-2016 10:50) Comment: COMMENTS TO CLINICAL DOCUMENTATION IMPROVEMENT SPECIALIST: PLEASE USE BLOOD ALREADY DRAWN Lipase = 128 73-393 complet measure 017 U/L ed ment 10:50 Differential panel, method unspecified - (11-21-2016 10:50) [...] by Test strip URINALYSIS/COMPLETE (05-04-2012 09:10) URINE 05-04- YELLOW YELLOW complet COLOR 013 ed 09:10 URINE CLEAR CLEAR complet APPEARA 013 ed NCE 09:10 URINE 03-26-2 NEGATIV NEG complet GLUCOSE 013 E ed [...] 013 mmoL/L ed SerPl-s 06:30 Cnc CO2 -26-2 27 21.0-32 complet SerPl-s 013 mmoL/L .0 ed Cnc 06:30 Calcium -26-2 7.9 8.5-10. complet 013 mg/dL 1 ed SerPl-m 06:30 Cnc CBC with AUTO DIFF (05-04-2012 06:30) WBC # 03-26-2 4.6 4.8-10. complet Bld 013 K/MM3 8 ed Auto 06:30 RBC # 03-26-2 3.75 4.6-6.2 complet Bld 013 M/mm3 ed Auto 06:30 Hgb -26-2 11.3 14.1-18 complet Bld-mCn 013 g/dL .0 [...] Fr 013 ed Bld 06:30 Auto Eosinop -26-2 0.8 % 0.1-12. complet hil Fr 013 0 ed Bld 06:30 Auto Basophi -26-2 0.5 % 0.1-2.0 complet ls Fr 013 [...] 013 K/mm3 ed Bld 06:30 Auto Basophi 26-2 0.0 0-0.2 complet ls # 013 K/MM3 ed Bld 06:30 Auto COMPREHENSIVE METABOLIC PANEL (05-03-2012 10:30) Glucose 05-03- 113 74-106 complet 013 mg/dL ed Bld-mCn 10:30 c BUN 05-03-2 22 7-18 complet Bld-mCn 013 mg/dL ed c 10:30 Creat 05-03-2 1.4 0.8-1.3 complet SerPl-m 013 mg/dL ed Cnc 10:30 GFR 2 50 Greater complet (ESTIMA 013 ML/MIN than [...] with AUTO DIFF (05-03-2012 10:30) WBC # -25-2 6.3 4.8-10. complet Bld 013 K/MM3 8 ed Auto 10:30 RBC # 25-2 3.82 4.6-6.2 complet Bld 013 M/mm3 ed Auto 10:30 Hgb --2 11.4 14.1-18 complet Bld-mCn 013 g/dL .0 ed c 10:30 Hct Fr 05-03-2 35.2 % 42.0-52 complet Bld 013 .0 ed 10:30 MCV RBC 05-03-2 92.2 fl 82.2-97 complet 013 .8 ed 10:30 MCH RBC 05-03-2 29.8 pg 27-31.2 complet Qn 013 ed Auto 10:30 MEAN 05-03-2 32.4 31.8-35 complet CORPUSC 013 g/dl .4 ed ULAR 10:30 HGB CONC RDW RBC 25-2 16.2 % 11.5-17 complet Auto 013 .5 ed 10:30 Platele -25-2 263 142-424 complet t Bld 013 K/mm3 ed Ql 10:30 Manual MEAN -25-2 7.1 fl 7.4-10. complet PLATELE 013 4 ed T 10:30 VOLUME Granulo 05-03-2 80.3 % 37.0-80 complet cytes 013 .0 [...] Leroy Husain ([place]) 3 10:17 3 17:50 [facility]
--- OUTSIDE RECORDS SUMMARY | 2016-12-27 19:01 | External Medical Summary Rpt | CCD ---
Author Author , ELIGIO Organization ELIGIO Address Unknown Phone [email or web address] Providers Care Starting Gate Driver Name Role Phone Anne Traore APRN, Unavailable Unavailable Anne Husain MD, Unavailable Unavailable Harinder Husain MD Purpose Continuity of Care Document - 05-03-2012 through 2016 Problems Code Diagnosis DOS Provider Status [id number] Headache [facility] [id number] Cervicogeni [facility] 401.9 Essential [place] hypertensio [facility] 458.8 Drug-induce [facility] [id number] Anxiety [facility] 729.82 Leg cramp [facility] 780.2 Syncope [facility] D64.9 ANEMIA, UNSPECIFIED E87.5 HYPERKALEMI A [...] ENCOUNTER FOR OTHER PREPROCEDUR AL EXAMINATION Z79.01 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 [...] SQUARE METERS Comment: If this patient is -Israeli, then multiply the Comment: result by 1.210. [...] 017 K/mm3 ed monocyt 06:37 e count Clark % = 21.5 1.7-9.3 complet 017 % [...] 017 K/mm3 ed monocyt 07:10 e count Clark % = 15.5 1.7-9.3 complet 017 % [...] SQUARE METERS Comment: If this patient is -Israeli, then multiply the Comment: result by 1.210. [...] 017 K/mm3 ed monocyt 06:40 e count Clark % = 11.7 1.7-9.3 complet 017 % [...] SQUARE METERS Comment: If this patient is -Israeli, then multiply the Comment: result by 1.210. [...] SQUARE METERS Comment: If this patient is -Israeli, then multiply the Comment: result by 1.210. [...] 017 K/mm3 ed monocyt 23:35 e count Clark % = 12.1 1.7-9.3 complet 017 % [...] context for Comment: interpretation. Comment: Performed at: [facility] Comment: [id number], [place] [id number] Comment: Medical Dosimetrist: Salvador Martínez PhD, Phone: [phone] Body fluid glucose assay (12-03-2016 12:45) Body [...] 017 K/mm3 ed monocyt 06:30 e count Clark % 10-25-2 = 16.9 1.7-9.3 complet 017 [...] SQUARE METERS Comment: If this patient is -Israeli, then multiply the Comment: result by 1.210. [...] 017 K/mm3 ed monocyt 04:20 e count Clark % = 15.9 1.7-9.3 complet 017 % [...] 017 K/mm3 ed monocyt 06:30 e count Clark % = 15.8 1.7-9.3 complet 017 % [...] SQUARE METERS Comment: If this patient is -Israeli, then multiply the Comment: result by 1.210. [...] trough 06:30 Comment: CALLED TO Jeff MILLARD [facility] 11/30/16 0725 CREATININE (11-29-2016 09:15) Serum 11-29-2 [...] SQUARE METERS Comment: If this patient is -Israeli, then multiply the Comment: result by 1.210. [...] WILL HOLD YEAST FOR 5 DAYS. Sputum [id number] complet culture 017 5 Yeast ed 02:35 [...] measurement (mass/vol (11-27-2016 12:00) Comment: COMMENTS TO TRANSLATION DIRECTOR: ascites Body = 0.5 . complet fluid [...] fluid, total (11-27-2016 12:00) Comment: COMMENTS TO TRANSLATION DIRECTOR: ascites Protein = 1.7 . complet , [...] context for Comment: interpretation. Comment: Performed at: [facility] Comment: [id number], [place] [id number] Comment: Medical Dosimetrist: Salvador Martínez PhD, Phone: [phone] Body fluid glucose assay (11-27-2016 12:00) Comment: COMMENTS TO TRANSLATION DIRECTOR: ascites Body = 123 . complet fluid [...] body fluid (11-27-2016 12:00) Comment: COMMENTS TO TRANSLATION DIRECTOR: ascites BODY COMMENT complet FLUID 017 ed [...] 017 K/mm3 ed monocyt 06:04 e count Clark % = 8.8 % 1.7-9.3 complet 017 [...] SQUARE METERS Comment: If this patient is -Israeli, then multiply the Comment: result by 1.210. [...] Ammonia measurement (11-24-2016 13:30) Comment: COMMENTS TO TRANSLATION DIRECTOR: COLLECTED BY PHYSICIAN Ammonia = 17 19-54 complet 017 umoL/L ed measure 13:30 ment Whole blood INR measurement (11-24-2016 13:30) Comment: COMMENTS TO TRANSLATION DIRECTOR: COLLECTED BY PHYSICIAN Comment: IS PATIENT ON [...] p MARIANGEL (11-24-2016 13:30) Comment: COMMENTS TO TRANSLATION DIRECTOR: COLLECTED BY PHYSICIAN MARIANGEL = 26 14-82 complet 017 U/L ed 13:30 Comment: Performed at: [facility] Comment: [id number], [place] [id number] Comment: Medical Dosimetrist: Salvador Martínez PhD, Phone: [phone] Alk Phos Isoenzyme (11-24-2016 13:30) Serum 16-2 = 50 % 12-68 complet or 017 ed plasma 13:30 bone alkalin e phospha tas Serum = 0 % 0-18 complet or 017 ed plasma 13:30 intesti nal alkalin e phos Comment: Performed at: [facility] Comment: [id number], [place] [id number] Comment: Medical Dosimetrist: Salvador Martínez PhD, Phone: [phone] Serum 16-2 = 50 % 13-88 complet or 017 ed plasma 13:30 liver alkalin e phospha ta Serum = 438 39-117 complet or 017 IU/L ed plasma 13:30 alkalin e phospha tase austyn Comment: Performed at: [facility] Comment: [id number], [place] [id number] Comment: Medical Dosimetrist: Salvador Martínez PhD, Phone: [phone] Hepatitis B profile (11-24-2016 13:30) Comment: COMMENTS TO TRANSLATION DIRECTOR: COLLECTED BY PHYSICIAN HBcAb Negativ Negativ complet [...] a HCV Nucleic Acid Amplification Comment: test ([id number]). Comment: Performed at: [facility] Comment: [id number], [place] [id number] Comment: Medical Dosimetrist: Salvador Martínez PhD, Phone: [phone] Serum Negativ Negativ complet hepatit 017 e e ed is B 13:30 Negativ virus e L surface antigen Hepatit Negativ Negativ complet is A 017 e e ed IgM 13:30 Negativ e L Serum IgA antibody assay (11-24-2016 13:30) Comment: COMMENTS TO TRANSLATION DIRECTOR: COLLECTED BY PHYSICIAN Serum = 703 61-437 complet IgA 017 mg/dL ed antibod 13:30 y assay Serum or plasma IgG measurement (mass/vo (11-24-2016 13:30) Comment: COMMENTS TO TRANSLATION DIRECTOR: COLLECTED BY PHYSICIAN Serum = 1984 700-160 complet or 017 mg/dL 0 ed plasma 13:30 IgG measure ment (mass/v o Quantitative serum IgM measurement (11-24-2016 13:30) Comment: COMMENTS TO TRANSLATION DIRECTOR: COLLECTED BY PHYSICIAN Quantit = 48 15-143 complet ative 017 mg/dL ed serum 13:30 IgM measure ment Comment: Performed at: [facility] Comment: [id number], [place] [id number] Comment: Medical Dosimetrist: Salvador Martínez PhD, Phone: [phone] M2 mitochondrial IgG ab (11-24-2016 13:30) Comment: COMMENTS TO TRANSLATION DIRECTOR: COLLECTED BY PHYSICIAN M2 < 20.0 0.0-20. complet mitocho 017 Units 0 ed ndrial 13:30 IgG ab Comment: Negative 0.0 - 20.0 Comment: Equivocal 20.1 - 24.9 Comment: Positive >24.9 Comment: Comment: Mitochondrial (M2) Antibodies are found in 90-96% of Comment: patients with primary biliary cirrhosis. Comment: Performed at: [facility] Comment: [id number], [place] [id number] Comment: Medical Dosimetrist: Salvador Martínez PhD, Phone: [phone] Serum or plasma actin IgG antibody assay (11-24-2016 13:30) Comment: COMMENTS TO TRANSLATION DIRECTOR: COLLECTED BY PHYSICIAN Serum = 7 0-19 [...] 017 K/mm3 ed monocyt 06:20 e count Clark % = 10.8 1.7-9.3 complet 017 % [...] SQUARE METERS Comment: If this patient is -Israeli, then multiply the Comment: result by 1.210. [...] SQUARE METERS Comment: If this patient is -Israeli, then multiply the Comment: result by 1.210. [...] 017 K/mm3 ed monocyt 05:50 e count Clark % = 6.9 % 1.7-9.3 complet 017 [...] RN culture 7 0455 Paul Jenkins Aerobic [id number] complet 017 ed bacteri 11:40 Staphyl al [...] DERRICK.CAC H 7 0828 Giancarlo,Ri chard Blood [id number] complet anaerob 017 ed ic 11:40 Staphyl [...] /volume ) Urine culture (11-21-2016 10:55) Urine [id number] complet culture 017 07 ed 10:55 Escheri [...] SQUARE METERS Comment: If this patient is -Israeli, then multiply the Comment: result by 1.210. [...] 017 K/mm3 ed monocyt 10:50 e count Clark % = 5.3 % 1.7-9.3 complet 017 [...] Amylase ser/plas (11-21-2016 10:50) Comment: COMMENTS TO TRANSLATION DIRECTOR: PLEASE USE BLOOD ALREADY DRAWN Amylase 10-13-2 = 41 25-115 complet 017 U/L ed ser/wolfgang 10:50 s Lipase measurement (11-21-2016 10:50) Comment: COMMENTS TO TRANSLATION DIRECTOR: PLEASE USE BLOOD ALREADY DRAWN Lipase = [...] Leroy Husain ([place]) 3 10:17 3 17:50 [facility]
--- OUTSIDE RECORDS SUMMARY | 2016-12-27 19:02 | External Medical Summary Rpt | CCD ---
Demographics Preferred Language Lao Marital Status Unknown Mu-Ism Affiliation Unknown Race Unknown Ethnic Group Unknown Author Author , AURELIA DEL VALLE Address Unknown Phone Immunization No patient found.
--- OUTSIDE RECORDS SUMMARY | 2016-12-27 19:02 | External Medical Summary Rpt | CCD ---
Demographics Preferred Language Ugandan Marital Status Unknown Congregation Affiliation Unknown Race Unknown Ethnic Group Unknown Author Author , AURELIA DEL VALLE Address Unknown Phone Immunization No patient found.
--- OUTSIDE RECORDS SUMMARY | 2016-12-27 19:05 | External Medical Summary Rpt ---
Author Author [employer], [employer] Organization [employer] Address Unknown Phone Unavailable Results Natriutietic peptide B [Mass/volume] in Serum or Plasma Observa Value Referen Units Interpr Notes Date tion ce etation Range Natriutie 0 - 100 pg/mL High No Dec 27 tic informati 2017 5:45 peptide B on in PM source [Mass/vol data ume] in Serum or Plasma Comprehensive metabolic 2000 panel in Serum or Plasma Observa Value Referen Units Interpr Notes Date tion ce etation Range Albumin/G 1.1 - 1.8 No Low No Dec 27 lobulin informati informati 2016 5:45 [Mass on in on in PM ratio] in source source Serum or data data Plasma Albumin 3.4 - 5.0 gm/dL Low No Dec 27 [Mass/vol informati 2017 5:45 ume] in on in PM Serum or source Plasma data Alkaline 46 - 116 U/L High No Dec 27 phosphata informati 2016 5:45 se on in PM [Enzymati source c data activity/ volume] in Serum or Plasma Bilirubin 0.2 - 1.0 mg/dL Normal No Dec 27 .total informati 2016 5:45 [Mass/vol on in PM ume] in source Serum or data Plasma Urea 7 - 18 mg/dL High No Dec 27 nitrogen informati 2017 5:45 [Mass/vol on in PM ume] in source Serum or data Plasma Calcium 8.5 - mg/dL Normal No Dec 27 [Mass/vol 10.1 informati 2017 5:45 ume] in on in PM Serum or source Plasma data Chloride 98 - 107 mmoL/L Normal No Dec 27 [Moles/vo informati 2016 5:45 lume] in on in PM Serum or source Plasma data Carbon 21.0 - mmoL/L Normal No Dec 27 dioxide, 32.0 informati 2017 5:45 total on in PM [Moles/vo source lume] in data Serum or Plasma Creatinin 0.70 - mg/dL High No Dec 27 e 1.30 informati 2017 5:45 [Mass/vol on in PM ume] in source Serum or data Plasma Estimated >60 ML/MIN No REFERENCE Dec 27 informati RANGE: 2017 5:45 glomerula on in >60 PM r source ML/MIN/1. filtratio data 73 SQUARE n rate METERSIf (GF this patient is -A merican, then multiply theresult by 1.210. Globulin 1.3 - 3.2 gm/dL High Dec 27 [Mass/vol informati 2016 5:45 ume] in on in PM Serum source data Glucose 74 - 106 mg/dL High No Dec 27 [Mass/vol informati 2016 5:45 ume] in on in PM Serum or source Plasma data Potassium 3.5 - 5.1 mmoL/L Normal No Dec 272016 5:45 [Moles/vo on in PM lume] in source Serum or data Plasma Sodium 136 - 145 mmoL/L Low Dec 27 [Moles/vo informati 2016 5:45 lume] in on in PM Serum or source Plasma data Aspartate 15 - 37 U/L Normal No Dec 27 informati 2016 5:45 aminotran on in PM sferase source [Enzymati data c activity/ volume] in Serum or Plasma Alanine 12 - 78 U/L Normal Dec 27 aminotran 2016 5:45 sferase on in PM [Enzymati source c data activity/ volume] in Serum or Plasma Protein 6.4 - 8.2 gm/dL Normal No Dec 27 [Mass/vol informati 2016 5:45 ume] in on in PM Serum or source Plasma data Troponin I.cardiac [Mass/volume] in Serum or Plasma Observa Value Referen Units Interpr Notes Date ti ce etation Range Troponin 0.00 - ng/mL Normal No Dec 27 I.cardiac 0.06 informati 2016 5:45 on in PM [Mass/vol source ume] in data Serum or Plasma Ammonia [Mass/volume] in Unspecified specimen Observa Value Referen Units Interpr Notes Date ti ce etation Range Ammonia 19 - 54 umoL/L Normal No Dec 27 [Mass/vol informati 2016 5:45 ume] in on in PM Unspecifi source ed data specimen CBC W Auto Differential panel in Blood Observa Value Referen Units Interpr Notes Date ti ce etation Range Basophils 0 - 0.2 K/MM3 Normal No Dec 18 inform2016 5:45 [#/volume on in PM ] in source Blood by data Automated count Basophils 0.1 - 2.0 % Normal No Dec 18 /100 informati 2016 5:45 leukocyte on in PM s in source Blood by data Automated count Eosinophi 0.0 - 0.4 K/mm3 Normal No Dec 27 ls informati 2016 5:45 [#/volume on in PM ] in source Blood by data Automated count Eosinophi 0.1 - % Normal No Dec 27 ls/100 12.0 informati 2016 5:45 leukocyte on in PM s in source Blood by data Automated count Granulocy 1.3 - 8.0 K/mm3 High No Dec 27 kelley informati 2016 5:45 [#/volume on in PM ] in source Blood by data Automated count Granulocy 37.0 - % Normal No Dec 27 kelley/100 80.0 informati 2016 5:45 leukocyte on in PM s in source Blood by data Automated count Hematocri 42.0 - % Low No Dec 27 t [Volume 52.0 informati 2016 5:45 on in PM Fraction] source of Blood data Hemoglobi 14.1 - g/dL Low No Dec 27 n 18.0 informati 2016 5:45 [Mass/vol on in PM ume] in source Blood data Lymphocyt 0.7 - 4.5 K/mm3 Normal No Dec 27 es inform2016 5:45 [#/volume on in PM ] in source Unspecifi data ed specimen by Automated count Lymphocyt 10 - 50 % Low No Dec 27 es 2016 5:45 [#/volume on in PM ] in source Unspecifi data ed specimen by Automated count Erythrocy 27 - 31.2 pg Low No Dec 27 te mean informati 2016 5:45 corpuscul on in PM ar source hemoglobi data n [Entitic mass] Erythrocy 31.8 - g/dl Low No Dec 27 te mean 35.4 informati 2016 5:45 corpuscul on in PM ar source hemoglobi data n concentra tion [Mass/vol ume] by Automated count Erythrocy 82.2 - fl Normal No Dec 27 te mean 97.8 informati 2016 5:45 corpuscul on in PM ar volume source [Entitic data volume] by Automated count Monocytes 0.1 - 1.0 K/mm3 High No Dec 272016 5:45 [#/volume on in PM ] in source Blood by data Automated count Monocytes 1.7 - 9.3 % High No Dec 27 /100 informati 2016 5:45 leukocyte on in PM s in source Blood by data Automated count Platelet 7.4 - fl Normal No Dec 27 mean 10.4 inform2016 5:45 volume on in PM [Entitic source volume] data in Blood by Automated count Platelets 142 - 424 K/mm3 No No Dec 27 inform informati 2016 5:45 [#/volume on in on in PM ] in source source Blood data data Erythrocy 4.6 - 6.2 M/mm3 Low No Dec 27 kelley informati 2016 5:45 [#/volume on in PM ] in source Amniotic data fluid Erythrocy 11.5 - % High No Dec 27 te 17.5 informati 2016 5:45 distribut on in PM ion width source [Entitic data volume] by Automated count Leukocyte 4.8 - K/MM3 High No Dec 27 s 10.8 alert ati 2016 5:45 [#/volume on in PM ] in source Blood data Differential panel, method unspecified - Observa Value Referen Units Interpr Notes Date tion ce etation Range Neutrophi 0 - 8 % Normal No Dec 27 ls.band 2016 5:45 form/100 on in PM leukocyte source s in data Blood by Automated count LYMPH 4 10 - 50 % Low No Dec 272016 tion in 5:45 PM source data Monocytes 2 - 9 % Normal No Dec 18 ati 2016 5:45 leukocyte on in PM s in source Blood by data Automated count Platele NORMAL No No No No Dec 27 ts informa informa informa informa 2016 [Presen tion in tion in tion in tion in 5:45 PM ce] in source source source source Blood data data data data by Light microsc opy Neutrophi 42 - 76 % High No Dec 27 ls informati 2016 5:45 [#/volume on in PM ] in source Blood by data Automated count Cells No #CELLS No No Dec 27 Counted informati informati ati 2016 5:45 Total [#] on in on in on in PM in Blood source source source data data data Lipase [Enzymatic activity/volume] in Serum or Plasma Observa Value Referen Units Interpr Notes Date tion ce etation Range Lipase 73 - 393 U/L Low No Dec 18 [Enzymati informati 2017 5:45 c on in PM activity/ source volume] data in Serum or Plasma CBC W Auto Differential panel in Blood Observa Value Referen Units Interpr Notes Date tion ce etation Range Basophils 0 - 0.2 K/MM3 Normal No Dec 16 inform2016 6:37 [#/volume on in AM ] in source Blood by data Automated count Basophils 0.1 - 2.0 % Normal No Dec 16 /100 informati 2017 6:37 leukocyte on in AM s in source Blood by data Automated count Eosinophi 0.0 - 0.4 K/mm3 Normal No Dec 16 ls informati 2016 6:37 [#/volume on in AM ] in source Blood by data Automated count Eosinophi 0.1 - % Normal No Dec 16 ls/100 12.0 informati 2016 6:37 leukocyte on in AM s in source Blood by data Automated count Granulocy 1.3 - 8.0 K/mm3 Normal No Dec 16 kelley informati 2016 6:37 [#/volume on in AM [...] Low No Dec 16 n 18.0 informati 2016 6:37 [Mass/vol on in AM ume] in source Blood data Lymphocyt 0.7 - 4.5 K/mm3 Normal No Dec 16 es informati 2016 6:37 [#/volume on in AM ] in source Unspecifi data ed specimen by Automated count Lymphocyt 10 - 50 % Normal No Dec 16 es informati 2016 6:37 [#/volume on in AM ] in source Unspecifi data ed specimen by Automated count Erythrocy 27 - 31.2 pg Low No Dec 16 te mean informati 2017 6:37 corpuscul on in AM ar source hemoglobi data n [Entitic mass] Erythrocy 31.8 - g/dl Low Dec 16 te mean 35.4 informati 2016 6:37 corpuscul on in AM ar source hemoglobi data n concentra tion [Mass/vol ume] by Automated count Erythrocy 82.2 - fl Normal No Dec 16 te mean 97.8 informati 2016 6:37 corpuscul on in AM ar volume source [Entitic data volume] by Automated count Monocytes 0.1 - 1.0 K/mm3 High Dec 16 informati 2016 6:37 [#/volume on in AM ] in source Blood by data Automated count Monocytes 1.7 - 9.3 % High No Dec 16 informati 2016 6:37 leukocyte on in AM s in source Blood by data Automated count Platelet 7.4 - fl Normal No Dec 16 mean 10.4 informati 2016 6:37 volume on in AM [Entitic source volume] data in Blood by Automated count Platelets 142 - 424 K/mm3 Normal Dec 16 informati 2016 6:37 [#/volume on in AM ] in source Blood data Erythrocy 4.6 - 6.2 M/mm3 Low No Dec 16 kelley informati 2016 6:37 [#/volume on in AM ] in source Amniotic data fluid Erythrocy 11.5 - % High Dec 16 te 17.5 informati 2016 6:37 distribut on in AM ion width source [Entitic data volume] by Automated count Leukocyte 4.8 - K/MM3 No Dec 16 s 10.8 informati informati 2016 6:37 [#/volume on in on in AM ] in source source Blood data data Differential panel, method unspecified - Observa Value Referen Units Interpr Notes Date tion ce etation Range Basophils 0 - 1 % Normal No Dec 16 informati 2016 6:37 leukocyte on in AM s in source Blood by data Automated count Hypochr 1+ No No No No Dec 16 omia informa informa informa informa 2016 [Presen tion in tion in tion in tion in 6:37 AM ce] in source source source source Blood data data data data LYMPH 9 10 - 50 % Low Dec 162016 tion in 6:37 AM source data Monocytes 2 - 9 % High Dec 16 informati 2016 6:37 leukocyte on [...] No Dec 16 Counted informati informati informati 2017 6:37 Total [#] on in on in [...] 3.4 - 5.0 gm/dL Low No Dec 16 [Mass/vol informati 2016 6:37 ume] in on in AM Serum or source Plasma data Alkaline 46 - 116 U/L High No Dec 16 phosphata informati 2016 6:37 se on in AM [Enzymati source c data activity/ volume] in Serum or Plasma Bilirubin 0.2 - 1.0 mg/dL Normal No Dec 16 .total informati 2016 6:37 [Mass/vol on in AM ume] in source Serum or data Plasma Urea 7 - 18 mg/dL High No Dec 16 nitrogen informati 2016 6:37 [Mass/vol on in AM ume] in source Serum or data Plasma Calcium 8.5 - mg/dL Low No Dec 16 [Mass/vol 10.1 informati 2017 6:37 ume] in on in AM Serum or source Plasma data Chloride 98 - 107 mmoL/L Normal No Dec 16 [Moles/vo informati 2016 6:37 [...] 50 - 200 ML/MIN Normal No Dec 16 e renal informati 2017 6:37 clearance on [...] data Glucose 74 - 106 mg/dL Normal Dec 16 [Mass/vol informati 2016 6:37 ume] in on in AM Serum or source Plasma data Potassium 3.5 - 5.1 mmoL/L Normal No Dec 16 informati 2016 6:37 [Moles/vo on in AM lume] in source Serum or data Plasma Sodium 136 - 145 mmoL/L Low Dec 16 [Moles/vo informati 2017 6:37 lume] in on in AM Serum or source Plasma data Aspartate 15 - 37 U/L High Dec 16 informati 2017 6:37 aminotran on in AM sferase source [Enzymati data c activity/ volume] in Serum or Plasma Alanine 12 - 78 U/L Normal No Dec 16 aminotran informati 2016 6:37 sferase on in AM [Enzymati source c data activity/ volume] in Serum or Plasma Protein 6.4 - 8.2 gm/dL Low Dec 16 [Mass/vol informati 2017 [...] Plasma Calcium 8.5 - mg/dL Low Dec 15 [Mass/vol 10.1 informati 2017 7:10 ume] in on in AM Serum or source Plasma data Chloride 98 - 107 mmoL/L Normal No Dec 15 [Moles/vo informati 2017 7:10 lume] in on in AM Serum or source Plasma data Carbon 21.0 - mmoL/L Normal No Dec 15 dioxide, 32.0 informati 2017 7:10 total on in AM [Moles/vo source lume] in data Serum or Plasma Creatinin 0.70 - mg/dL High No Dec 15 e 1.30 informati 2017 7:10 [Mass/vol on in AM ume] in source Serum or data Plasma Creatinin 50 - 200 ML/MIN Normal No Dec 6 e renal informati 2016 7:10 clearance on in AM source predicted data by Cockcroft -Gault formula Estimated >60 ML/MIN No REFERENCE Dec 15 informati RANGE: 2017 7:10 glomerula on in >60 AM r source ML/MIN/1. filtratio data 73 SQUARE n rate METERSIf (GF this patient is -A merican, then multiply theresult by 1.210. Glucose 74 - 106 mg/dL Normal No Dec 15 [Mass/vol informati 2016 7:10 ume] in on in AM Serum or source Plasma data Potassium 3.5 - 5.1 mmoL/L Normal No Dec 15 informati 2016 7:10 [Moles/vo on in AM lume] in [...] Hematocri 42.0 - % Low No Dec 15 t [Volume 52.0 informati 2016 7:10 on in AM Fraction] source of Blood data Hemoglobi 14.1 - g/dL Low No Nov 6 n 18.0 informati 2017 7:10 [Mass/vol on in AM ume] in source Blood data Lymphocyt 0.7 - 4.5 K/mm3 Normal No Dec 6 es informati 2017 7:10 [#/volume on in AM ] in source Unspecifi data ed specimen by Automated count Lymphocyt 10 - 50 % Low No Dec 6 es informati 2017 7:10 [#/volume on in AM ] in source Unspecifi data ed specimen by Automated count Erythrocy 27 - 31.2 pg Low No Dec 6 te mean informati 2017 7:10 corpuscul on in AM ar source hemoglobi data n [Entitic mass] Erythrocy 31.8 - g/dl Low No Dec 6 te mean 35.4 informati 2017 7:10 corpuscul on in AM ar source hemoglobi data n concentra tion [Mass/vol ume] by Automated count Erythrocy 82.2 - fl Normal No Dec 15 te mean 97.8 informati 2017 7:10 corpuscul on in AM ar volume source [Entitic data volume] by Automated count Monocytes 0.1 - 1.0 K/mm3 High No Dec 6 informati 2017 7:10 [#/volume on in AM ] in source Blood by data Automated count Monocytes 1.7 - 9.3 % High No Dec 6 /100 informati 2017 7:10 leukocyte on in AM s in source Blood by data Automated count Platelet 7.4 - fl Normal No Dec 6 mean 10.4 informati 2017 7:10 volume on in AM [Entitic source volume] data in Blood by Automated count Platelets 142 - 424 K/mm3 Normal No Dec 6 informati 2017 7:10 [#/volume on in AM ] in source Blood data Erythrocy 4.6 - 6.2 M/mm3 Low No Dec 6 kelley informati 2017 7:10 [#/volume on in AM ] in source Amniotic data fluid Erythrocy 11.5 - % High No Dec 6 te 17.5 informati 2017 7:10 distribut on in AM ion width source [Entitic data volume] by Automated count Leukocyte 4.8 - K/MM3 High No Dec 6 s 10.8 informati 2017 7:10 [#/volume on in AM ] in source Blood data Basic metabolic panel in Blood Observa Value Referen Units Interpr Notes Date tion ce etation Range Urea 7 - 18 mg/dL High No Nov 5 nitrogen informati 2016 6:40 [Mass/vol on in [...] 1.210. Glucose 74 - 106 mg/dL High Dec 14 [Mass/vol informati 2016 6:40 ume] in on in AM Serum or source Plasma data Potassium 3.5 - 5.1 mmoL/L High Dec 14 informati 2016 6:40 [Moles/vo on in AM lume] in source Serum or data Plasma Sodium 136 - 145 mmoL/L Low Dec 14 [Moles/vo informati 2016 6:40 lume] [...] 0.1 - 2.0 % Normal No Dec 14 /100 informati 2016 6:40 leukocyte on in AM s in source Blood by data Automated count Eosinophi 0.0 - 0.4 K/mm3 Normal No Dec 14 ls informati 2016 6:40 [#/volume on in AM ] in source Blood by data Automated count Eosinophi 0.1 - % Normal No Dec 14 ls/100 12.0 informati 2016 6:40 leukocyte on in AM s in source Blood by data Automated count Granulocy 1.3 - 8.0 K/mm3 Normal No Dec 5 kelley informati 2016 6:40 [#/volume on in AM ] in source Blood by data Automated count Granulocy 37.0 - % Normal No Dec 14 kelley/100 80.0 informati 2016 6:40 leukocyte on in AM s in source Blood by data Automated count Hematocri 42.0 - % Low No Dec 14 t [Volume 52.0 informati 2016 6:40 on in AM Fraction] source of Blood data Hemoglobi 14.1 - g/dL Low No Dec 14 n 18.0 informati 2016 6:40 [Mass/vol on in AM ume] in source Blood data Lymphocyt 0.7 - 4.5 K/mm3 Normal No Dec 14 es informati 2016 6:40 [#/volume on in AM ] in source Unspecifi data ed specimen by Automated count Lymphocyt 10 - 50 % Normal No Dec 14 es informati 2016 6:40 [#/volume on in AM ] in source Unspecifi data ed specimen by Automated count Erythrocy 27 - 31.2 pg Low No Dec 14 te mean informati 2017 6:40 corpuscul on in AM ar source hemoglobi data n [Entitic mass] Erythrocy 31.8 - g/dl Low No Dec 14 te mean 35.4 informati 2017 6:40 corpuscul on in AM ar source hemoglobi data n concentra tion [Mass/vol ume] by Automated count Erythrocy 82.2 - fl Normal No Dec 14 te mean 97.8 informati 2017 6:40 corpuscul on in AM ar volume source [Entitic data volume] by Automated count Monocytes 0.1 - 1.0 K/mm3 Normal No Dec 5 informati 2017 6:40 [#/volume on in AM ] in source Blood by data Automated count Monocytes 1.7 - 9.3 % High No Dec 5 /100 informati 2017 6:40 leukocyte on in AM s in source Blood by data Automated count Platelet 7.4 - fl Low No Dec 14 mean 10.4 informati 2016 6:40 volume on in AM [Entitic source [...] 0 - 100 pg/mL High No Dec 4 tic inform 2017 peptide B on in 11:35 PM source [Mass/vol data ume] in Serum or Plasma Comprehensive metabolic 2000 panel in Serum or Plasma Observa Value Referen Units Interpr Notes Date tion ce etation Range Albumin/G 1.1 - 1.8 No Low No Dec 4 lobulin informati informati 2016 [Mass on in on in 11:35 PM ratio] in source source Serum or data data Plasma Albumin 3.4 - 5.0 gm/dL Low No Dec 4 [Mass/vol informati 2016 ume] in on in 11:35 PM Serum or source Plasma data Alkaline 46 - 116 U/L High No Dec 13 phosphata inform2016 se on in 11:35 PM [Enzymati source c data activity/ volume] in Serum or Plasma Bilirubin 0.2 - 1.0 mg/dL Normal No Dec 4 .total informati 2016 [Mass/vol on in 11:35 [...] data Glucose 74 - 106 mg/dL High Dec 13 [Mass/vol informati 2016 ume] in [...] 78 U/L Normal No Dec 13 aminotran inform2016 sferase on in 11:35 PM [Enzymati source c data activity/ volume] in Serum or Plasma Protein 6.4 - 8.2 gm/dL Normal No Dec 13 [Mass/vol informati 2016 ume] [...] 2.0 % Normal No Nov 4 /100 2016 leukocyte on in 11:35 PM [...] Erythrocy 82.2 - fl Normal No Dec 4 te mean 97.8 2016 corpuscul on in 11:35 PM ar volume source [Entitic data volume] by Automated count Monocytes 0.1 - 1.0 K/mm3 High No Dec 4 inform2016 [#/volume on in 11:35 PM ] in source Blood by data Automated count Monocytes 1.7 - 9.3 % High No Dec 4 /100 informati 2017 leukocyte on in 11:35 PM s in source Blood by data Automated count Platelet 7.4 - fl Low No Dec 13 mean 10.4 2016 volume on in 11:35 PM [Entitic source volume] data in Blood by Automated count Platelets 142 - 424 K/mm3 Normal No Dec 13 inform2016 [#/volume on in 11:35 PM ] in source Blood data Erythrocy 4.6 - 6.2 M/mm3 Low No Dec 13 kelley informati 2016 [#/volume on in 11:35 PM ] in source Amniotic data fluid Erythrocy 11.5 - % High Dec 13 te 17.5 informati 2016 distribut on in 11:35 PM ion width source [Entitic data volume] by Automated count Leukocyte 4.8 - K/MM3 Normal Dec 13 s 10.8 inform2016 [#/volume on in 11:35 PM ] in source Blood data Protein [Mass/volume] in Body fluid Observa Value Referen Units Interpr Notes Date tion ce etation Range Protein . g/dL No Dec 03 [Mass/vol informati 2016 [facility]] in on in 12:45 PM Body source [...] the clinical context forinterp retation. Performed at: [address] [id number] [employer] Operator: Salvador Martínez PhD, Phone: [phone] Glucose [Mass/volume] in Body fluid Observa Value Referen Units Interpr Notes Date tion ce etation Range Glucose . mg/dL No Dec 03 [Mass/vol informati 2016 e] [...] Granulocy 1.3 - 8.0 K/mm3 High No Oct 25 kelley informati 2017 6:30 [#/volume on in [...] No Dec 03 te mean 97.8 informati 2017 6:30 corpuscul [...] % High No Dec 01 /100 informati 2016 4:20 [...] - 9 % Normal No Dec 01 / informati 2017 4:20 leukocyte on in AM [...] Low No Dec 01 lobulin informati informati 2017 4:20 [Mass on [...] mg/dL High No Nov 30 nitrogen informati 2017 6:30 [Mass/vol on in [...] CALLED TO Nov 30 n 10.0 L 2016 6:30 [Mass/vol FREEMAN AM ume] in [facility] Serum or 11/30/16 Plasma 0725 [...] K/mm3 High No Nov 30 kelley informati 2017 6:30 [...] % Low No Nov 30 es informati 2016 6:30 [#/volume on in AM ] in source Unspecifi data ed specimen by Automated count Erythrocy 27 - 31.2 pg Low No Nov 30 te mean informati 2016 6:30 corpuscul on in AM ar source hemoglobi data n [Entitic mass] Erythrocy 31.8 - g/dl Low No Nov 30 te mean 35.4 informati 2017 6:30 corpuscul on in AM ar source hemoglobi data n concentra tion [Mass/vol ume] by Automated count Erythrocy 82.2 - fl Normal No Nov 30 te mean 97.8 informati 2016 6:30 corpuscul on in AM ar volume source [Entitic data volume] by Automated count Monocytes 0.1 - 1.0 K/mm3 High No Nov 30 informati 2017 6:30 [#/volume on in AM ] in source Blood by data Automated count Monocytes 1.7 - 9.3 % High No Nov 22 /100 informati 2017 6:30 leukocyte on in AM s in source Blood by data Automated count Platelet 7.4 - fl Normal No Nov 30 mean 10.4 informati 2017 6:30 volume on in AM [Entitic source volume] data in Blood by Automated count Platelets 142 - 424 K/mm3 Normal No Nov 30 informati 2016 6:30 [...] Interpr Notes Date ti ce etation Range Vancomyci 5.0 - mcg/mL High RESULTS Nov 29 n 10.0 CALLED TO 2017 9:15 [Mass/vol AM ume] in PHARMACIS Serum or T: CHE Plasma 11/29/16 --trough [id number] Mondragon Bacteria identified in Sputum by Culture Observa Value Referen Units Interpr Notes Date ti ce etation Range Collected by nurse? Y [...] Value Referen Units Interpr Notes Date ti etation Range COMMENTS TO GREASE REFINING SUPERVISOR: CALL PHARMACIST ELECTRONICS SUPERVISOR WITH LEVEL Vancomyci 5.0 - mcg/mL High No Nov 27 n 10.0 informati 2016 7:25 [Mass/vol on in PM ume] in source Serum or data Plasma --trough Albumin [Mass/volume] in Body fluid Observa Value Referen Units Interpr Notes Date ti ce etation Range COMMENTS TO GREASE REFINING SUPERVISOR: ascites Albumin . g/dL No Nov 27 [...] Date tion ce etation Range COMMENTS TO GREASE REFINING SUPERVISOR: ascites Protein . g/dL No Nov 27 [...] the clinical context forinterp retation. Performed at: [address] [id number] [employer] Operator: Salvador Martínez PhD, Phone: [phone] Glucose [Mass/volume] in Body fluid Observa Value Referen Units Interpr Notes Date tion ce etation Range COMMENTS TO GREASE REFINING SUPERVISOR: ascites Glucose . mg/dL No Nov 27 [Mass/vol informati 2016] in on in 12:00 PM Body source [...] 1.1 - 1.8 No Low No Oct 18 lobulin informati informati 2017 6:04 [Mass [...] Carbon 21.0 - mmoL/L Normal No Nov 26 dioxide, 32.0 informati 2016 6:04 total on in AM [Moles/vo source lume] in data Serum or Plasma Creatinin 0.70 - mg/dL Normal No Nov 18 e 1.30 informati 2016 6:04 [Mass/vol on in AM ume] in source Serum or data Plasma Creatinin 50 - 200 ML/MIN Normal No Nov 26 e renal informati 2016 6:04 clearance on in AM source predicted data by Cockcroft -Gault formula Estimated >60 ML/MIN No REFERENCE Nov 26 informati RANGE: 2017 6:04 glomerula on in [...] 3.5 - 5.1 mmoL/L Normal No Nov 26 informati 2016 6:04 [Moles/vo on in AM [...] No Nov 18 t [Volume 52.0 informati 2016 6:04 on [...] Platelet 7.4 - fl Normal No Nov 26 mean 10.4 informati 2016 6:04 volume on in AM [Entitic source volume] data in Blood by Automated count Platelets 142 - 424 K/mm3 No No Nov 26 informati informati 2017 6:04 [#/volume on in on in AM ] in source source Blood data data Erythrocy 4.6 - 6.2 M/mm3 Low No Nov 26 kelely informati 2016 6:04 [#/volume on in AM [...] - [facility] PM inal/Radha source line data [id number] phosphata [address], in Serum [place], or Plasma [place] [id number] [employer] Operator: Salvador Martínez PhD, Phone: [phone] Alkaline 13 - 88 % No No Nov 24 phosphata informati informati 2017 1:30 se.liver/ on in on in PM Alkaline source source phosphata data data se.total in Serum or Plasma Alkaline 39 - 117 IU/L High Performed Nov 24 phosphata at: CB 2017 1:30 se - [facility] PM [Enzymati c [id number] activity/ [address]] Road, in Serum [place], or Plasma [place] [id number] [employer] Operator: Salvador Martínez PhD, Phone: [phone] INR in Blood by Coagulation assay Observa Value Referen Units Interpr Notes Date tion ce etation Range COMMENTS TO GREASE REFINING SUPERVISOR: COLLECTED BY PHYSICIAN IS PATIENT ON ANTICOAGULANTS? N INR in 0.9 - 1.1 No High INDICATIO Nov 24 Blood by informati N 2016 1:30 Coagulati on in PM on assay [...] Date tion ce etation Range COMMENTS TO GREASE REFINING SUPERVISOR: COLLECTED BY PHYSICIAN Ammonia 19 - 54 [...] U/L High No Nov 24 phosphata informati 2016 6:20 se on in AM [Enzymati source [...] 136 - 145 mmoL/L Normal No Nov 16 [Moles/vo informati 2017 6:20 lume] in on in AM Serum or source Plasma data Aspartate 15 - 37 U/L High No Nov 16 informati 2016 6:20 aminotran on in AM sferase source [Enzymati data c activity/ volume] in Serum or Plasma Alanine 12 - 78 U/L No No Nov 16 aminotran informati informati 2017 6:20 sferase on in on in AM [Enzymati source source c data data activity/ volume] in Serum or Plasma Protein 6.4 - 8.2 gm/dL Normal No Nov 16 [Mass/vol informati 2017 6:20 [...] % Normal No Nov 24 /100 informati 2016 6:20 [...] Low No Nov 24 te mean informati 2017 6:20 corpuscul on in AM ar source hemoglobi data n [Entitic mass] Erythrocy 31.8 - g/dl Low No Nov 24 te mean 35.4 informati 2017 6:20 corpuscul on in AM ar source hemoglobi data n concentra tion [Mass/vol ume] by Automated count Erythrocy 82.2 - fl Normal No Oct 16 te mean 97.8 informati 2016 6:20 corpuscul on in AM ar volume source [Entitic data volume] by Automated count Monocytes 0.1 - 1.0 K/mm3 High No Nov 16 inform2016 6:20 [#/volume on in AM ] in source Blood by data Automated count Monocytes 1.7 - 9.3 % High No Nov 16 /100 informati 2016 6:20 leukocyte on in AM s in source Blood by data Automated count Platelet 7.4 - fl Normal No Nov 16 mean 10.4 informati 2016 6:20 volume on [...] - 0.2 K/MM3 Normal No Nov 14 inform2016 5:50 [#/volume on in AM ] [...] Hematocri 42.0 - % Low No Nov 22 t [Volume 52.0 informati 2016 5:50 on in AM Fraction] source of Blood data Hemoglobi 14.1 - g/dL Low No Nov 14 n 18.0 inform2016 5:50 [Mass/vol on in AM ume] in source Blood data Lymphocyt 0.7 - 4.5 K/mm3 Normal No Nov 22 es inform2016 5:50 [#/volume on in AM ] in source Unspecifi data ed specimen by Automated count Lymphocyt 10 - 50 % Low No Nov 22 es informati 2016 5:50 [#/volume on in AM ] in source Unspecifi data ed specimen by Automated count Erythrocy 27 - 31.2 pg Low No Nov 22 te mean inform2016 5:50 corpuscul on in AM ar source hemoglobi data n [Entitic mass] Erythrocy 31.8 - g/dl Low No Nov 22 te mean 35.4 informati 2016 5:50 corpuscul on in AM ar source hemoglobi data n concentra tion [Mass/vol ume] by Automated count Erythrocy 82.2 - fl Normal No Nov 22 te mean 97.8 informati 2016 5:50 corpuscul on in AM ar volume source [Entitic data volume] by Automated count Monocytes 0.1 - 1.0 K/mm3 Normal No Nov 14 inform2016 5:50 [#/volume on in AM ] in source Blood by data Automated count Monocytes 1.7 - 9.3 % Normal No Nov 14 /100 informati 2016 5:50 leukocyte on in AM s in source Blood by data Automated count Platelet 7.4 - fl Normal No Nov 22 mean 10.4 informati 2016 5:50 volume on in AM [Entitic source volume] data in Blood by Automated count Platelets 142 - 424 K/mm3 No No Nov 14 informati informati 2016 5:50 [#/volume on in on in AM ] in source source Blood data data Erythrocy 4.6 - 6.2 M/mm3 Low No Nov 22 kelley informati 2016 5:50 [#/volume on in AM ] in source Amniotic data fluid Erythrocy 11.5 - % Normal No Nov 22 te 17.5 informati 2016 5:50 distribut on [...] Low No Oct 14 [Mass/vol 10.1 informati 2017 5:50 ume] in on in AM Serum [...] U/L No No Nov 22 aminotran informati inform2016 5:50 sferase on in on in AM [...] Date tion ce etation Range COMMENTS TO GREASE REFINING SUPERVISOR: PLEASE USE BLOOD ALREADY DRAWN Amylase 25 - 115 U/L Normal No Nov 21 [Enzymati inform2016 c on in 10:50 AM activity/ source volume] data in Serum or Plasma Lipase [Enzymatic activity/volume] in Serum or Plasma Observa Value Referen Units Interpr Notes Date ti ce etation Range COMMENTS TO GREASE REFINING SUPERVISOR: PLEASE USE BLOOD ALREADY DRAWN Lipase 73 [...] 424 K/mm3 No No Nov 21 informati inform2016 [#/volume on in on in 10:50 AM [...] - 9 % Normal No Nov 21 / inform2016 [...] #CELLS No No Nov 21 Counted informati ati 2016 Total [#] on in on [...] Creatinin 0.70 - mg/dL High No Nov 13 e 1.30 informati 2016 [Mass/vol on in [...] 3.5 - 5.1 mmoL/L Normal No Nov 13 informati 2016 [Moles/vo on in 10:50 AM lume] in source Serum or data Plasma Sodium 136 - 145 mmoL/L Low No Nov 13 [Moles/vo informati 2017 lume] in on in 10:50 AM Serum or source Plasma data Aspartate 15 - 37 U/L High No Nov 21 informati 2017 aminotran on in 10:50 AM sferase source [Enzymati data c activity/ volume] in Serum or Plasma Alanine 12 - 78 U/L Normal No Nov 21 aminotran informati 2017 sferase on in 10:50 AM [Enzymati source c data activity/ volume] in Serum or Plasma Protein 6.4 - 8.2 gm/dL High No Nov 21 [Mass/vol informati 2017 [...] No Nov 07 a informa informa informa 2017 [Presen tion [...] No Nov 07 [Presen informa l informa 2017 ce] in tion in tion in Urine source source sedimen data data t by Light microsc opy Nitrite NEGATIV NEG No No No Sep E informa informa informa 2017 [Presen tion [...] strip Erythro OCC 0 rbc/hpf No No Sep 29 cytes informa informa 2017 [Presen tion in tion in ce] in source source Urine data data sedimen t by Light microsc opy Specific 1.005 - No Normal No Sep 29 gravity 1.030 informati informati 2017 of Urine on in on in source source data data Epithel OCC OCC #/hpf No No Sep 29 ial informa informa 2017 cells.s tion [...] Bilirub NEGATIV NEG No No No Sep 29 in E informa informa informa 2017 [Presen tion in tion in tion in ce] in source source source Urine data data data by Test strip Erythro TRACE-I NEG No No No Sep 29 cytes NTACT informa informa informa 2017 [Presen tion in tion in tion in ce] in source source source Urine data data data Color YELLOW YELLOW No No No Sep 29 of informa informa informa 2017 Urine tion [...] data Protein NEG mg/dL No No Sep [Mass/vol informati informati 2017 ume] in on in on in Urine by source source Automated data data test strip Specific 1.005 - No Normal No Sep gravity 1.030 informati informati 2016 of Urine [...] Sep 4 nce of informa informa informa 2016 Urine [...] No Sep 4 of informa informa informa 2016 Urine tion [...] 0.2 NEG E.U./dL No No Sep 4 randy informa informa 2017 [Presen tion in tion in 5:15 AM ce] in source source Urine data data by Test strip
--- OUTSIDE RECORDS SUMMARY | 2016-12-27 19:05 | External Medical Summary Rpt ---
[...] g/dL No Dec 03 [Mass/vol informati 2016 [facility]] in on in 12:45 PM Body source [...] the clinical context forinterp retation. Performed at: [address] [id number] [employer] Operator Helper: Salvador Martínez PhD, Phone: [phone] Glucose [Mass/volume] in Body fluid Observa [...] 2016 6:30 [Mass/vol FREEMAN AM ume] in [facility] Serum or 11/30/16 Plasma 0725 [...] Notes Date ti etation Range COMMENTS TO CARAMEL CANDY MAKER: CALL PHARMACIST WIRE COATING OPERATOR METAL WITH LEVEL Vancomyci 5.0 - mcg/mL High No Nov 27 n 10.0 informati 2016 7:25 [Mass/vol on in PM ume] in source Serum or data Plasma --trough Albumin [Mass/volume] in Body fluid Observa Value Referen Units Interpr Notes Date ti ce etation Range COMMENTS TO CARAMEL CANDY MAKER: ascites Albumin . g/dL No Nov 27 [...] Date tion ce etation Range COMMENTS TO CARAMEL CANDY MAKER: ascites Protein . g/dL No Nov 27 [...] the clinical context forinterp retation. Performed at: [address] [id number] [employer] Hel[employer]: Salvador Martínez PhD, Phone: [phone] Glucose [Mass/volume] in Body fluid Observa Value Referen Units Interpr Notes Date tion ce etation Range COMMENTS TO CARAMEL CANDY MAKER: ascites Glucose . mg/dL No Nov 27 [...] - [facility] PM inal/Radha source line data [id number] phosphata [address], in Serum [place], or [place] [id number] [employer] Operator Helper: Salvador Martínez PhD, Phone: [phone] Alkaline 13 - 88 % No No Nov 24 phosphata informati informati 2017 1:30 se.liver/ on in on in PM Alkaline source source phosphata data data se.total in Serum or Plasma Alkaline 39 - 117 IU/L High Performed Nov 24 phosphata at: CB 2017 1:30 se - [facility] PM [Enzymati c [id number] activity/ [address] volume] Road, in Serum [place], or Plasma [place] [id number] [employer] Helper: Salvador Martínez PhD, Phone: [phone] INR in Blood by Coagulation assay Observa Value Referen Units Interpr Notes Date tion ce etation Range COMMENTS TO CARAMEL CANDY MAKER: COLLECTED BY PHYSICIAN IS PATIENT ON ANTICOAGULANTS? [...] Date tion ce etation Range COMMENTS TO CARAMEL CANDY MAKER: COLLECTED BY PHYSICIAN Ammonia 19 - 54 [...] Date tion ce etation Range COMMENTS TO CARAMEL CANDY MAKER: PLEASE USE BLOOD ALREADY DRAWN Amylase 25 - 115 U/L Normal No Nov 21 [Enzymati inform2016 c on in 10:50 AM activity/ source volume] data in Serum or Plasma Lipase [Enzymatic activity/volume] in Serum or Plasma Observa Value Referen Units Interpr Notes Date ti ce etation Range COMMENTS TO CARAMEL CANDY MAKER: PLEASE USE BLOOD ALREADY DRAWN Lipase 73 [...]
--- NOTE | 2016-12-27 19:33 | RADIOLOGY REPORT PS360 ---
CT ABD PELVIS W/O CONTRAST HISTORY: Abdominal PAIN altered mental status.. Patient Age: 71 years: Male Ordering Physician: Cecil Sanches MD TECHNIQUE: Helical CT scanning performed at of pelvis with no oral or IV contrast utilized. Patient could not raise arms above head which yields streak artifact throughout upper abdomen COMPARISON :CT abdomen pelvis November 22, 2015 FINDINGS LUNG BASES included on this study & revealLarge right pleural effusion with compression atelectasis & consolidation right lower lobe.. Recommend 2 view chest film. The right pleural effusion has increased since Nov 21, 2016. CT abdomen. Notable leftward shift of the heart reflecting increased volume right chest from the from the right pleural effusion.. . The previous left pleural effusion seen in November is no longer evident longer evident . Previous left lower lobe atelectasis/ consolidation has shown significant improvement with ureter aerated left lower lobe. Minimal subtle atelectasis with possible scant interstitial slight peribronchial infiltrate question towards left infrahilar region. Note old right 10th and 11th rib fractures ABDOMEN/PELVIS. Lack of oral and IV contrast decreases sensitivity. In addition patient cannot raise arms above head which yields moderate streak artifact throughout the upper abdomen. . Diffuse ascites throughout the abdomen and pelvis. Fluid is most evident surrounding the cirrhotic liver. Minimal amount of fluid is seen surrounding the spleen... We again see fluid along paracolic gutters bilaterally and continuing into the pelvis with moderate free ascites fluid throughout pelvis & cul-de-sac. Overall the amount ascites overall is less than seen previous study from November 21. Previously there was more pronounced overall abdominal distention than seen today. Liver: Small Cirrhotic liver again noted. Slightly lobular margins in some areas reflecting cirrhosis. The large caudate lobe compatible with cirrhosis extends medially. No focal mass appreciated on this noncontrast study.. Gallbladder distended measuring over 10 cm cm length x 4.2 cm AP- but difficult delineate from the adjacent ascites particularly with the streak artifact. No discrete gallstones. May benefit from a follow-up ultrasound to further evaluate gallbladder & survey liver,- particularly if elevated alkaline phosphatase. . Spleen appears upper normal in size 12 cm AP X 12.5 cm length... Pancreas not well seen but grossly unremarkable. Extensive diffuse atherosclerotic calcifications aorta, SMA, celiac artery, splenic artery, iliac arteries seen throughout. The diffuse character may reflect underlying diabetes.. No aneurysm. No significant retroperitoneal adenopathy.. GI TRACT A limited images stomach unremarkable. Proximal small bowel appears normal in caliber. Distal small bowel upper normal wall thickness. Right colon and transverse colon with increased wall thickening as nicely seen on axial image 72,: & Coronal Image 37. The generous colon wall thickening is more than could be attributed to lack of distention. Suspect colitis.. Nonspecific but More likely infectious.. However with extensive atheroslight calcification could not totally exclude ischemic changes bowel... Correlation required. There is also some mild thickening of the left colon and to lesser degree rectosigmoid. This is a change since prior study.Also would note if if patient is hypoproteinemic , some of the bowel wall thickening could reflect edematous state if present, but I do not see edematous changes in subcutaneous the fat to to further support a the latter TRACT Kidneys. No urinary tract calculi nor obstruction. No hydronephrosis. Ureters unremarkable. Bladder unremarkable. A generous wall thickness of bladder most likely reflecting lack of distention here. Moderate-generous size prostate with calcification. Difficult to delineate appendix but I see no discrete evidence of separate appendicitis. Mild levoscoliosis by multilevel degenerative changes lower L-spine is similar to prior studies. No focal osseous lesions IMPRESSION 1. Increasing now large right pleural effusion., since 11/21/2016. This increased volume right chest shifts the heart leftward.. Compression atelectasis & consolidation more pronounced at right RLL as well. . Recommend PA and lateral chest to further evaluate this feature Prior Left pleural effusion & LLL airspace disease has regressed since 11/21/1969. Left pleural effusion has resolved only Only minor residual infiltrate LLL 2. Cirrhotic liver-with diffuse ascites throughout abdomen & pelvis.. Moderate amount ascites-but There is been Decreased overall volume of ascites abdomen & pelvis since 11/21/2016. . 3. Prominent edematous appearing wall thickening large bowel most evident at right & transverse colon; and lesser degree left colon, & rectosigmoid. Suspect developing colitis- most likely infectious colitis, ( but noting the extensive atherosclerotic calcifications & disease-difficult to exclude ischemic change). 4. Distended gallbladder. No gallstones evident no ductal dilatation . Consider gallbladder ultrasound in follow-up if significant elevated phosphatase along with the elevated LFTs
[2016-12-28] VITALS (24 sets, daily range): BP systolic 88–119; BP diastolic 49–86
[2016-12-28] MEDS ORDERED: PANTOPRAZOLE SO40 MG PO (05:24)
[2016-12-28] MEDS ORDERED: RISPERIDONE0.5 MG PO (05:26)
[2016-12-28] MEDS ORDERED: PSEUDOEPHEDRINE PO (05:29)
[2016-12-28] MEDS ORDERED: TRAMADOL 50MG T50 M1 PO (05:30)
[2016-12-28] MEDS ORDERED: TRIPLE ANTIBIO1 EACH TP (05:31)
[2016-12-28] MEDS ORDERED: ROBITUSSIN DM S10 ML NG (05:33)
[2016-12-28 06:16] LABS: LYMPH # 0.9 K/mm3 (0.7-4.5); LYMPH % 3.6 % (10-50)
[2016-12-28 06:22] LABS: HEMOGLOBIN 10.2 g/dL (14.1-18.0)
--- NOTE | 2016-12-28 12:30 | PHARMACY CLINIC NOTE ---
Patient Demographics Patient Demographics Admission date: 12/27/16 Date: 12/28/16 Time: 1223 Allergies Coded Allergies: No Known Allergies (12/27/16) HEIGHT- FT: 6 IN: 5.00 K.992 VTE General Information Labs: Laboratory Tests 12/28 12/27 0540 1745 Hematology Hgb (14.1 - 18.0 g/dL) 10.2 L 11.5 L Hct (42.0 - 52.0 %) 35.1 L 37.5 L Plt Count (142 - 424 K/mm3) 212 278 Disclaimer The following section includes nursing documentation that has been pulled in for pharmacy review. Patient's VTE score: 4 Patient's VTE Risk: LOW RISK Clinical trial participant? No VTE prophylaxis NQF [id number] VTE prophylaxis ordered? Yes Type of prophylaxis/treatment: ALFA at 9715
--- NOTE | 2016-12-28 14:48 | HISTORY AND PHYSICAL REPORT ---
History and Physical ([facility]CA) Date of admission: 12/27/16 Chief complaint: Altered mental status History: History of Present Illness: 71 [address] old patient of Dr. Husain'leann with a history of mental retardation and numerous recent hospital admissions. Presented to the [facility] ER with the complaint of frequent yelling out episodes associated with staring spells and decreased level on interaction. Patient has chronic a. fib, he has recently been diagnosed with cirrhosis with ascites and has recently had problems with diarrhea. During ER evaluation HR was noted to be in the 170s with a. fib Past Medical History: Medical History: CAD? Yes Angina: No MA: No Hypertension? Yes Hyperlipidemia? Yes CHF? Yes DVT? No PE? No COPD? No Asthma? No Anemia? Yes GERD? Yes GI Bleed? Yes Hernia? No Thyroid Problems? No Hypothyroidism? No CVA? No Seizures? No Diabetes? No Renal Insuffiency? Yes UTI? No Stones? No GB Disease: No Nephritic Syndrome? No Asplenia? No Hepatitis? No Sickle Cell Disease? No Arthritis? No Cataracts? Yes Glaucoma? No MRSA? No TB? No Anxiety? Yes Depression? No Cancer? No More? Yes Additional hx: 1. SHARKO FOOT 2. AFIB 3. TIA 4. MENTAL RETARDATION Surgical history: Previous Surgery?Y RIGHT KNEE APPY DULCE CATARACTS CARDIAC CATH WITH STENT Medications: Active Scripts Ferrous Sulfate (Ferrous Sulfate 325MG) 325 MG PO BID #30 TAB Ref 4 Prov: 09/04/15 ASPIRIN (Aspirin) 81 MG PO DAILY #30 TABLET Ref 2 Prov: 09/04/15 Furosemide (Lasix 40MG) 40 MG PO DAILY #30 TAB Ref 3 Prov: 12/04/16 NYSTATIN (Nystatin Topical Powder 30GM) 0 GM TP QID #1 POW Ref 2 Prov: 12/04/16 Spironolactone (Aldactone 100MG) 100 MG PO DAILY #30 TAB Ref 2 Prov: 12/04/16 Diltiazem Hcl (Cardizem Generic 60MG Tab) 60 MG OR TID #90 TAB Ref 2 Prov: 12/04/16 Potassium Chloride (Klor-Con M20) 40 MEQ PO BID #60 TAB Ref 2 Prov: 12/04/16 BENZONATATE (Benzonatate) 100 MG PO QIDP PRN COUGH #30 CAPSULE Prov: 12/16/16 Reported Medications Clopidogrel Bisulfate (Plavix) 75 MG PO DAILY #30 TAB Ref 2 Cyanocobalamin (Vitamin B-12) (B-12) 500 MCG PO DAILY Metoprolol Tartrate 25 MG PO BID Acetaminophen (Acetaminophen Extra Strength) 1,000 MG PO Q6HP PRN PAIN Haloperidol (Haloperidol 5MG. Tablet) 5 MG OR QHS Hydrocortisone (Scalacort) 30 ML TP BID IPRATROPIUM/ALBUTEROL SULFATE (Iprat-Albut 0.5-3(2.5) MG/3 Ml) 3 ML IH TID Pantoprazole Sodium (Pantoprazole 40MG) 40 MG PO DAILY Risperidone 0.5 MG PO BID PSEUDOEPHEDRINE HCL (Sudogest) 30 MG PO TID TRAMADOL HCL (Tramadol) 50 MG PO QID Exevsijc-Ryabsyixjb-Dlexeeqes (Triple Antibiotic Ointment) 1 EACH TP DAILY Dextromethorphan-Gg (Guaifenesin Dm Syrup) 10 ML NG Q6HP PRN COUGH CHOLECALCIFEROL (VITAMIN D3) (Vitamin D) 1 TAB PO DAILY Lorazepam (Ativan) 0.5 MG PO QID PRN ANXIETY Allergies: Coded Allergies: No Known Allergies (12/27/16) Family History: Family history: Postive for: CAD. Social History: Smoking Hx Tobacco: No Smoker: Never Smoker Type: N/A Packs/day: N/A Are you exposed to second hand No Alcohol: Alcohol: No Hx of Drug Use: Drug Use? No Patient's support system is: good (cousin helps care for patient) Review of Systems: Patient unresponsive? No (no, but only minimally respons) Physical Exam: Vital signs: Vital Signs Date Time Temp Pulse Resp B/P Pulse O2 O2 Flow FiO2 Ox Delivery Rate 12/28 1406 97.5 104 20 99/62 98 OXYGEN 3 12/28 1345 3 12/28 1337 22 12/28 1300 97.5 113 22 103/53 96 OXYGEN 3 12/28 1200 97.5 96 22 105/64 96 OXYGEN 3 12/28 1116 3 12/28 1100 97.6 96 22 108/64 96 OXYGEN 3 12/28 1034 22 12/28 1000 97.6 86 22 119/86 96 OXYGEN 3 12/28 0920 3 12/28 0900 97.6 71 22 105/71 96 OXYGEN 3 12/28 0840 97.6 109 22 97/57 96 12/28 0840 97.6 109 22 97/57 96 12/28 0837 22 12/28 0800 97.6 63 22 112/81 96 OXYGEN 3 12/28 0655 3 12/28 0629 2 12/28 0600 109 97/57 96 OXYGEN 2 12/28 0500 2 12/28 0500 73 100/61 95 OXYGEN 2 12/28 0400 111 92/65 95 OXYGEN 2 12/28 0300 3 12/28 0300 118 107/56 94 OXYGEN 2 12/28 0201 2 12/28 0200 97.6 110 24 92/49 93 3 12/28 0200 110 92/49 93 OXYGEN 2 12/28 0100 3 12/28 0100 107 102/59 95 OXYGEN 2 12/28 0000 2 12/28 0000 120 22 100/57 95 OXYGEN 2 12/27 2326 2 12/27 2326 2 12/27 2300 3 12/27 2300 113 98/61 95 OXYGEN 2 12/27 2200 121 22 99/53 95 OXYGEN 2 12/27 2145 3 12/27 2130 63 16 87/67 96 2 12/275 85 12/27 2124 97.9 128 22 87/67 12/27 2125 99 OXYGEN 12/27 2100 110 90/58 94 OXYGEN 2 12/27 2044 98.1 121 16 105/67 96 2 12/27 2044 98.1 121 16 105/67 96 OXYGEN 12/27 2033 97.9 85 18 142/73 99 12/27 1900 18 12/27 1829 97.9 88 22 142/7 96 Exam: General appearance: awake (non communicative) Eyes: pupils reactive to light ENT: mucous membranes moist Cardiovascular: irregularly irregular Respiratory: distant breath sounds ABD: no rebound, soft, no tenderness Extremities: edema (bilateral lower) Lab data: Labs: Laboratory Tests 12/28/16 0540: Sodium 142, Potassium 4.8, Chloride 109 H, Carbon Dioxide 24, BUN 57 H, Creatinine 2.6 H, Estimated Creat Clear 30 L, Estimated GFR (MDRD) 24, Glucose 117 H, Calcium 8.3 L, WBC 26.2 *H, RBC 4.01 L, Hgb 10.2 L, Hct 35.1 L, MCV 87.4, RDW 18.2 H, Plt Count 212, MPV 7.6, Gran % 85.3 H, Gran # 22.4 H, Lymphocytes % 3.6 L, Monocytes % 10.8 H, Eosinophils % 0.1, Basophils % 0.2, Lymphocytes # 0.9, Monocytes # 2.8 H, Eosinophils # 0.0, Basophils # 0.1, PUBS MCHC 29.0 L, MCH 25.3 L 12/27/16 2350: Creatine Kinase 35 L, CK-MB (CK-2) Rel Index 3.4, CK and CKMB Interp 1.2, Troponin I 0.04 12/27/162104: Lactic Acid 1.8 12/27/162104: Creatine Kinase 51, CK-MB (CK-2) Rel Index 1.8, CK and CKMB Interp 0.9, Troponin I 0.04 12/27/16 1834: Stl Aeromonas (PCR) NOT DETECTED, Stl Cyclospora species NOT DETECTED, Stool Rotavirus (PCR) NOT DETECTED, Stool Astrovirus (PCR) NOT DETECTED, Stool Campylobacter PCR NOT DETECTED, Stool Cryptosporidium PCR NOT DETECTED, Stl E. histolytica PCR NOT DETECTED, Stool Giardia Lamblia PCR NOT DETECTED, Stl P. shigelloides PCR NOT DETECTED, Stool Sapovirus (PCR) NOT DETECTED, Stool Vibrio (PCR) NOT DETECTED, Stl Vibrio cholerae PCR NOT DETECTED, Stl Norovirus GI/GII PCR NOT DETECTED, Adenovirus (PCR) NOT DETECTED, C. difficile Tox (PCR) DETECTED H, E. coli (PCR) NOT DETECTED, Salmonella (PCR) NOT DETECTED, Yersinia (PCR) NOT DETECTED, Urine Color YELLOW, Urine Appearance SL CLOUDY, Urine pH 5.0, Ur Specific [place] 1.025, Urine Protein NEGATIVE, Urine Ketones NEGATIVE, Urine Blood 3+ H, Urine Nitrate NEGATIVE, Urine Bilirubin NEGATIVE, Urine Urobilinogen 0.2, Ur Leukocyte Esterase NEGATIVE, Urine RBC TNTC, Amorphous Sediment 3+, Urine Glucose NEGATIVE 12/27/161744: Lipase 53 L 12/27/161744: Lactic Acid 2.3 H 12/27/161744: Ammonia 33 12/27/161744: Sodium 135 L, Potassium 5.0, Chloride 103, Carbon Dioxide 25, BUN 53 H, Creatinine 2.7 H, Estimated GFR (MDRD) 23, Glucose 113 H, Calcium 8.8, Total Bilirubin 0.9, AST 20, ALT 20, Alkaline Phosphatase 310 H, Troponin I 0.04, B- Natriuretic Peptide 521 H, Total Protein 7.3, Albumin 1.6 L, Globulin 5.7 H, Albumin/Globulin Ratio 0.3 L, WBC 23.0 *H, RBC 4.38 L, Hgb 11.5 L, Hct 37.5 L, MCV 85.6, RDW 18.1 H, Plt Count 278, MPV 7.4, Gran % 79.9, Gran # 18.4 H, Total Counted 100, Lymphocytes % 4.5 L, Monocytes % 15.1 H, Eosinophils % 0.2, Basophils % 0.3, Neutrophils 89 H, Band Neutrophils 5, Lymphocytes (Manual) 4 L, Lymphocytes # 1.1, Monocytes (Manual) 2, Monocytes # 3.5 H, Eosinophils # 0.0, Basophils # 0.1, Platelet Estimate NORMAL, PUBS MCHC 30.4 L, MCH 26.1 L Microbiology 12/27 1821 BLOOD: Anaerobic Blood Culture - CAN Cancelled: PER KIERSTEN NEWMAN 12/27 1821 BLOOD: Aerobic Blood Culture - CAN Cancelled: PER KIERSTEN NEWMAN 12/27 1744 BLOOD: Anaerobic Blood Culture - RECD 12/27 1744 BLOOD: Aerobic Blood Culture - RECD Radiology results: Results: Preliminary report of CT Abd/pelvis shows right sided pleural effusion and evidence of colitis. Diagnosis(es): 1. C. difficile colitis Status: Acute 2. Atrial fibrillation with rapid ventricular response Status: Acute 3. Acute kidney injury Status: Acute 4. Altered mental state Status: Acute 5. Chronic atrial fibrillation Status: Chronic 6. Renal insufficiency Status: Chronic 7. Pleural effusion on right Status: Chronic 8. Debility Status: Chronic 9. CHF (congestive heart failure) Status: Chronic 10. Cirrhosis Status: Chronic 11. Anasarca Status: Chronic 12. Liver failure Status: Chronic 13. Essential hypertension Status: Chronic 14. Anxiety Status: Chronic Plan: Patient admitted for further treatment of his C. diff colitis and A. fib with RVR. Cefepime started by ER physician due to possible pneumonia. Discussed poor prognosis with patient's family. at 3517
--- NOTE | 2016-12-28 19:06 | RADIOLOGY REPORT PS360 ---
CHEST-PORTABLE Ordering Physician: Harinder Husain MD Patient Age: 71 years: Male HISTORY: confusionAP portable upright chest TECHNIQUE: AP portable chest COMPARISON AP portable chest 07/26 and 12/14/2016. :CT abdomen pelvis from today which includes lung bases from 12/27/2016... FINDINGS Progression of right pleural effusion. Is more impressive on CT but we do see increased density at the right lung base due to this moderate right pleural effusion. Pleural fluid is more evident overlying the right lung extending along the right chest wall and interposed within the minor fissure. Significant increased density at the right midlung and right base primarily reflecting the increased pleural effusion. Could not exclude infiltrate extending to the upper lobe and I suspect this appears minimal fluid at the fissure and lower lobe airspace disease. No subpulmonic pleural effusion seen on the prior CT accounts for the appearance inferior to the right lung-. This is not elevation right hemidiaphragm but rather there is subpulmonic fluid seen at yielding this appearance.. Marked volume loss RLL as well as likely RML was evident on CT.. Reflecting consolidation and atelectasis & airspace RLL RML.. There is slight shift of the heart to the left. Mild cardiomegaly. No CHF no cephalization. Left lung remains clear on plain film with only subtle questionable infiltrate left infrahilar region. PICC line imaging from the right as been removed since prior study. IMPRESSION... 1.RIGHT CHEST- progression of findings since 12/15/2016 Increasing RIGHT pleural effusion when compared to 12/15/2016. Increased pleural fluid surrounds the right lung, with subpulmonic pleural effusion evident Progressive atelectasis/consolidation RLL & RML along with a pleural effusion increased throughout the right midlung & right base. It appears the volume of the right pleural effusion no shift the heart and lower mediastinum to the left. 2 LEFT CHEST. Improvement left lung since recent studies Left lung appears clear except a question of a scant residual infiltrate at the medial left base. 3. Cardiomegaly.
[2016-12-29] VITALS (19 sets, daily range): BP systolic 86–123; BP diastolic 44–73
[2016-12-29 05:21] LABS: HEMOGLOBIN 10.4 g/dL (14.1-18.0); LYMPH # 0.8 K/mm3 (0.7-4.5); LYMPH % 2.8 % (10-50)
[2016-12-29 05:51] LABS: NEUTROPHILS 81 % (42-76)
--- NOTE | 2016-12-29 08:30 | ACUTE CARE PROGRESS NOTE (QUA) ---
Progress Notes Subjective Date 12/29/16 Time 0818 Note Candy is at bedside and feeding him ice chips which he seems to like; having no difficulty in swallowing; She stayed with him all night and says he was comfortable with the morphine. He has had no vomiting and no stools. He has a aquino Objective Findings Laboratory Tests 12/29/16 0500: Sodium 147 H, Potassium 4.1, Chloride 113 H, Carbon Dioxide 23, BUN 61 H, Creatinine 2.5 H, Estimated Creat Clear 32 L, Estimated GFR (MDRD) 25, Glucose 101, Calcium 8.3 L, Total Bilirubin 0.7, AST 12 L, ALT 11 L, Alkaline Phosphatase 239 H, Total Protein 6.3 L, Albumin 1.3 L, Globulin 5.0 H, Albumin/Globulin Ratio 0.3 L, WBC 27.7 *H, RBC 3.88 L, Hgb 10.4 L, Hct 35.0 L, MCV 90.2, RDW 17.9 H, Plt Count 194, MPV 7.7, Gran % 87.8 H, Gran # 24.3 H , Total Counted 100, Lymphocytes % 2.8 L, Monocytes % 9.1, Eosinophils % 0.2, Basophils % 0.1, Neutrophils 81 H, Band Neutrophils 13 H, Lymphocytes (Manual) 5 L, Lymphocytes # 0.8, Monocytes (Manual) 1 L, Monocytes # 2.5 H, Eosinophils # 0.1, Basophils # 0.0, Platelet Estimate NORMAL, Hypochromasia 3+, Poikilocytosis SL., Anisocytosis 1+, Microcytosis 1+, Rouleaux SL., PUBS MCHC 29.7 L, MCH 26.7 L Vital Signs Date Time Temp Pulse Resp B/P Pulse O2 O2 Flow FiO2 Ox Delivery Rate 12/29 0803 3 12/29 0700 107 104/54 97 OXYGEN 3 12/29 0655 3 12/29 0600 109 105/68 98 OXYGEN 3 12/29 0550 3 12/29 0500 111 106/49 97 OXYGEN 3 12/29 0442 3 12/29 0400 97.7 100 24 96/55 97 3 12/29 0400 97.7 100 24 96/55 97 OXYGEN 3 12/29 0312 90 ROOM AIR 12/29 0304 20 12/29 0300 3 12/29 0300 96 105/65 96 OXYGEN 3 12/29 0200 97 20 97/53 98 OXYGEN 3 12/29 0100 3 12/29 0100 119 20 94/49 99 OXYGEN 3 12/29 0015 97 98/44 97 3 12/29 0010 3 12/29 0000 96.9 119 20 88/65 96 OXYGEN 3 12/28 2300 3 12/28 2300 114 88/59 98 OXYGEN 3 12/28 2224 20 12/28 2200 3 12/28 2100 108 113/68 96 OXYGEN 3 12/28 2046 3 12/28 2029 3 12/28 2029 97.1 103 22 103/66 96 3 12/28 2000 107 22 97/56 97 OXYGEN 3 12/28 1935 3 12/28 1900 97.4 60 20 111/70 97 OXYGEN 3 12/28 1800 97.4 89 20 95/64 97 OXYGEN 3 12/28 1703 3 12/28 1702 97.0 127 20 115/60 97 OXYGEN 3 12/28 1637 20 12/28 1600 97.0 68 20 98/53 97 OXYGEN 3 12/28 1546 97.0 98 20 102/62 97 OXYGEN 12/28 1545 3 12/28 1539 97.0 104 20 99/62 98 3 12/28 1406 97.5 104 20 99/62 98 OXYGEN 3 12/28 1345 3 12/28 1337 22 12/28 1300 97.5 113 22 103/53 96 OXYGEN 3 12/28 1200 97.5 96 22 105/64 96 OXYGEN 3 12/28 1116 3 12/28 1100 97.6 96 22 108/64 96 OXYGEN 3 12/28 1034 22 12/28 1000 97.6 86 22 119/86 96 OXYGEN 3 12/28 0920 3 12/28 0900 97.6 71 22 105/71 96 OXYGEN 3 12/28 0840 97.6 109 22 97/57 96 12/28 0840 97.6 109 22 97/57 96 12/28 0837 22 Current Medications Diltiazem HCl 0 .STK-MED ONE IV (DC) Sodium Chloride 100 ML .STK-MED ONE IV (DC) Morphine Sulfate 0 .STK-MED ONE .ROUTE (DC) Morphine Sulfate 0 .STK-MED ONE .ROUTE (DC) Morphine Sulfate 0 .STK-MED ONE .ROUTE (DC) Morphine Sulfate 0 .STK-MED ONE .ROUTE (DC) Morphine Sulfate 4 MG Q2HP PRN IV Sodium Chloride 1,000 ML .STK-MED ONE IV (DC) Morphine Sulfate 0 .STK-MED ONE .ROUTE (DC) Metronidazole 100 ML Q8 IV Sodium Chloride 10 ML PRN PRN IV Morphine Sulfate 2 MG Q2HP PRN IV (DC) Ondansetron HCl 4 MG Q6HP PRN IV Sodium Chloride 1,000 ML .Q10H IV Diltiazem HCl 100 MG .Q10H IV Sodium Chloride 100 ML Sodium Chloride 10 ML PRN PRN IV (DC) Ondansetron HCl 4 MG IV (CAN) 12/28 1500 12/28 2300 12/29 0700 Intake Total 195 Output Total 650 200 Balance 1309 -200 Intake, IV 1958 Output, Stool Output, Urine 650 200 Patient 187 lb Weight Last VS-Temp:97.7 B/P:104/54 Pulse:107 Resp:24 SaO2:97 OXYGEN Last weight lbs:187 oz:6 K.992 Method:Bed Scales 12/27/16 CXR IMPRESSION... 1.RIGHT CHEST- progression of findings since 12/15/2016 Increasing RIGHT pleural effusion when compared to 12/15/2016. Increased pleural fluid surrounds the right lung, with subpulmonic pleural effusion evident Progressive atelectasis/consolidation RLL & RML along with a pleural effusion increased throughout the right midlung & right base. It appears the volume of the right pleural effusion no shift the heart and lower mediastinum to the left. 2 LEFT CHEST. Improvement left lung since recent studies Left lung appears clear except a question of a scant residual infiltrate at the medial left base. 3. Cardiomegaly. 12/27/16 CT of ABD and pelvis IMPRESSION 1. Increasing now large right pleural effusion., since 11/21/2016. This increased volume right chest shifts the heart leftward.. Compression atelectasis & consolidation more pronounced at right RLL as well. . Recommend PA and lateral chest to further evaluate this feature Prior Left pleural effusion & LLL airspace disease has regressed since 11/21/1969. Left pleural effusion has resolved only Only minor residual infiltrate LLL 2. Cirrhotic liver-with diffuse ascites throughout abdomen & pelvis.. Moderate amount ascites-but There is been Decreased overall volume of ascites abdomen & pelvis since 11/21/2016. . 3. Prominent edematous appearing wall thickening large bowel most evident at right & transverse colon; and lesser degree left colon, & rectosigmoid. Suspect developing colitis- most likely infectious colitis, ( but noting the extensive atherosclerotic calcifications & disease-difficult to exclude ischemic change). 4. Distended gallbladder. No gallstones evident no ductal dilatation . Consider gallbladder ultrasound in follow-up if significant elevated phosphatase along with the elevated LFTs Exam General appearance: alert, no acute distress, frail, speaks to Candy Cardiovascular: irregularly irregular, remains in At Fib Respiratory: breath sounds equal bilaterally anteriorly ABD: soft, no guarding, bowel sounds present Genitourinary: catheter in place Extremities: no peripheral edema Neuro: speaks with Candy and makes needs known most of the time Assessment/Plan Problem List 1. C. difficile colitis Status: Acute 2. Atrial fibrillation with rapid ventricular response Status: Acute 3. Acute kidney injury Status: Acute 4. Altered mental state Status: Acute 5. Chronic atrial fibrillation Status: Chronic 6. Renal insufficiency Status: Chronic 7. Pleural effusion on right Status: Chronic 8. Debility Status: Chronic 9. CHF (congestive heart failure) Status: Chronic 10. Cirrhosis Status: Chronic 11. Anasarca Status: Chronic 12. Liver failure Status: Chronic 13. Essential hypertension Status: Chronic 14. Anxiety Status: Chronic Patient condition Guarded Plan: GI to see today; continue IVF and Flagyl; maintain comfort. This inpt stay is expected to cross 2 MNs from start of care Yes (Anne Traore APRN) Subjective Date 12/29/16 Assessment/Plan Problem List 1. C. difficile colitis Status: Acute 2. Atrial fibrillation with rapid ventricular response Status: Acute 3. Acute kidney injury Status: Acute 4. Altered mental state Status: Acute 5. Chronic atrial fibrillation Status: Chronic 6. Renal insufficiency Status: Chronic 7. 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 Debility Status: Chronic 9. CHF (congestive heart failure) Status: Chronic 10. Cirrhosis Status: Chronic 11. Anasarca Status: Chronic 12. Liver failure Status: Chronic 13. Essential hypertension Status: Chronic 14. Anxiety Status: Chronic Plan: Pt seen and examined. Concur with above assessment an plan. Will await GI recommendations. Will switch to po Diltiazem. Prognosis is guarded. (Harinder Husain MD) at 0830 at [phone]
--- NOTE | 2016-12-29 10:09 | CONSULT NOTE ---
Dr. Lloyd' Consult History: History of Present Illness: Mr. Wu is a 71 cherrie old male with a hx of mental retardation and numerous recent hospital admissions. He has known cirrhosis with ascites and had required paracentesis on last several admissions. The pt apparently was restless and [facility] and was brought to ED on 12/27. He was found to have right pleural effusion, abdominal ascites, and C-Diff. The pt's CT scan did show prominent edematous appearing wall thickening of large bowel at right and transverse colon. The pt did have distended gallbladder but no evidence of obstruction. Labs showed Creatinine of 2.7, Alk Phos 310, BNP 521, Albumin 1.6 and WBC of 23. Past Medical History: Medical History: CAD? Yes Angina: No [place]: No Hypertension? Yes Hyperlipidemia? Yes CHF? Yes DVT? No PE? No COPD? No Asthma? No Anemia? Yes GERD? Yes GI Bleed? Yes Hernia? No Thyroid Problems? No Hypothyroidism? No CVA? No Seizures? No Diabetes? No Renal Insuffiency? Yes UTI? No Stones? No GB Disease: No Nephritic Syndrome? No Asplenia? No Hepatitis? No Sickle Cell Disease? No Arthritis? No Cataracts? Yes Glaucoma? No MRSA? No TB? No Anxiety? Yes Depression? No Cancer? No More? Yes Additional hx: 1. SHARKO FOOT 2. AFIB 3. TIA 4. MENTAL RETARDATION Surgical history: Previous Surgery?Y RIGHT KNEE APPY DULCE CATARACTS CARDIAC CATH WITH STENT Medications: Active Scripts Ferrous Sulfate (Ferrous Sulfate 325MG) 325 MG PO BID #30 TAB Ref 4 Prov: 09/04/15 ASPIRIN (Aspirin) 81 MG PO DAILY #30 TABLET Ref 2 Prov: 09/04/15 Furosemide (Lasix 40MG) 40 MG PO DAILY #30 TAB Ref 3 Prov: 12/04/16 NYSTATIN (Nystatin Topical Powder 30GM) 0 GM TP QID #1 POW Ref 2 Prov: 12/04/16 Spironolactone (Aldactone 100MG) 100 MG PO DAILY #30 TAB Ref 2 Prov: 12/04/16 Diltiazem Hcl (Cardizem Generic 60MG Tab) 60 MG OR TID #90 TAB Ref 2 Prov: 12/04/16 Potassium Chloride (Klor-Con M20) 40 MEQ PO BID #60 TAB Ref 2 Prov: 12/04/16 BENZONATATE (Benzonatate) 100 MG PO QIDP PRN COUGH #30 CAPSULE Prov: 12/16/16 Reported Medications Cyanocobalamin (Vitamin B-12) (B-12) 500 MCG PO DAILY Metoprolol Tartrate 25 MG PO BID Clopidogrel Bisulfate (Plavix) 75 MG PO DAILY #30 TAB Ref 2 Acetaminophen (Acetaminophen Extra Strength) 1,000 MG PO Q6HP PRN PAIN Haloperidol (Haloperidol 5MG. Tablet) 5 MG OR QHS Hydrocortisone (Scalacort) 30 ML TP BID IPRATROPIUM/ALBUTEROL SULFATE (Iprat-Albut 0.5-3(2.5) MG/3 Ml) 3 ML IH TID Pantoprazole Sodium (Pantoprazole 40MG) 40 MG PO DAILY Risperidone 0.5 MG PO BID PSEUDOEPHEDRINE HCL (Sudogest) 30 MG PO TID TRAMADOL HCL (Tramadol) 50 MG PO QID Xddnyuxe-Iwygtlyqkt-Zcdlmbqku (Triple Antibiotic Ointment) 1 EACH TP DAILY Dextromethorphan-Gg (Guaifenesin Dm Syrup) 10 ML NG Q6HP PRN COUGH CHOLECALCIFEROL (VITAMIN D3) (Vitamin D) 1 TAB PO DAILY Lorazepam (Ativan) 0.5 MG PO QID PRN ANXIETY Allergies: Coded Allergies: No Known Allergies (12/27/16) Family History: Family history: Negative for: unknown. Social History: Smoking Hx Tobacco: No Smoker: Never Smoker Type: N/A Packs/day: N/A Are you exposed to second hand No Alcohol: Alcohol: No Hx of Drug Use: Drug Use? No Physical Exam: Vital signs: 1ST Vital Signs Result Date Time Pulse Ox 96 12/27 1828 B/P 142/7 12/27 1828 Temp 97.9 12/27 1828 Pulse 88 12/27 1828 Resp 22 12/27 1828 O2 Delivery OXYGEN 12/27 2044 O2 Flow Rate 2 12/27 2044 Exam: Eyes: normal exam Cardiovascular: irregularly irregular Respiratory: diminished breath sounds (absent in Right lower lobe ) ABD: normal exam, normal bowel sounds Extremities: edema Skin: no gross abnormalities Lab data: Labs: Laboratory Tests 12/29/16 0500: Sodium 147 H, Potassium 4.1, Chloride 113 H, Carbon Dioxide 23, BUN 61 H, Creatinine 2.5 H, Estimated Creat Clear 32 L, Estimated GFR (MDRD) 25, Glucose 101, Calcium 8.3 L, Total Bilirubin 0.7, AST 12 L, ALT 11 L, Alkaline Phosphatase 239 H, Total Protein 6.3 L, Albumin 1.3 L, Globulin 5.0 H, Albumin/Globulin Ratio 0.3 L, WBC 27.7 *H, RBC 3.88 L, Hgb 10.4 L, Hct 35.0 L, MCV 90.2, RDW 17.9 H, Plt Count 194, MPV 7.7, Gran % 87.8 H, Gran # 24.3 H , Total Counted 100, Lymphocytes % 2.8 L, Monocytes % 9.1, Eosinophils % 0.2, Basophils % 0.1, Neutrophils 81 H, Band Neutrophils 13 H, Lymphocytes (Manual) 5 L, Lymphocytes # 0.8, Monocytes (Manual) 1 L, Monocytes # 2.5 H, Eosinophils # 0.1, Basophils # 0.0, Platelet Estimate NORMAL, Hypochromasia 3+, Poikilocytosis SL., Anisocytosis 1+, Microcytosis 1+, Rouleaux SL., PUBS MCHC 29.7 L, MCH 26.7 L Diagnosis(es): 1. C. difficile colitis Status: Acute 2. Atrial fibrillation with rapid ventricular response Status: Acute 3. Acute kidney injury Status: Acute 4. Altered mental state Status: Acute 5. Chronic atrial fibrillation Status: Chronic 6. Renal insufficiency Status: Chronic 7. Pleural effusion on right Status: Chronic 8. Debility Status: Chronic 9. CHF (congestive heart failure) Status: Chronic 10. Cirrhosis Status: Chronic 11. Anasarca Status: Chronic 12. Liver failure Status: Chronic 13. Essential hypertension Status: Chronic 14. Anxiety Status: Chronic Plan: 1.) Cirrhosis - with right lower lobe hydrothorax with is a result of cirrhosis and portal HTN as is ascites. Recommend paracentesis with albumin replacement if more than 4 liters replaced. Would avoid thoracentesis as this is likely to reacumulate. Recommend pt be diuresed as tolerated. The pt has numerous chronic conditions and high mortality. Do not feel Cirrhosis is primary etiology of illness at this time. Please contact Dr. Lloyd or myself if further clarification of rec's are needed. Would recommend DNR status be evaluated. 2.) C-Diff colitis - Recommend oral Vancomycin 125mg q. 6 hours x's 10-14 days. (GAGAN DICKEY APRN) Diagnosis(es): 1. C. difficile colitis Status: Acute 2. Atrial fibrillation with rapid ventricular response Status: Acute 3. Acute kidney injury Status: Acute 4. Altered mental state Status: Acute 5. Chronic atrial fibrillation Status: Chronic 6. Renal insufficiency Status: Chronic 7. Pleural effusion on right Status: Chronic 8. Debility Status: Chronic 9. CHF (congestive heart failure) Status: Chronic 10. Cirrhosis Status: Chronic 11. Anasarca Status: Chronic 12. Liver failure Status: Chronic 13. Essential hypertension Status: Chronic 14. Anxiety Status: Chronic Plan: I agree with the plan as outlined above. The patient does have hepatic hydrothorax secondary to portal hypertension and I would continue sodium restriction, diuretic therapy and paracentesis. I was certainly consider albumin administration with any paracentesis. The patient does have some renal insufficiency. I would treat the C. difficile with vancomycin 125 mg by mouth 4 times a day (ARIEL LLOYD) at 1008 at 1616
[2016-12-30 02:00] VITALS: BP 111/64
[2016-12-30 04:00] VITALS: BP 118/65
[2016-12-30 06:21] LABS: HEMOGLOBIN 9.8 g/dL (14.1-18.0); LYMPH # 0.9 K/mm3 (0.7-4.5); LYMPH % 2.7 % (10-50)
[2016-12-30 09:00] VITALS: BP 121/67
--- NOTE | 2016-12-30 09:07 | ACUTE CARE PROGRESS NOTE (QUA) ---
Progress Notes Subjective Date 12/30/16 Time 0830 Note Per Candy-patient does not seem as alert and she thinks he is worse; has had Morphine about p2copyp; continues to take ice chips PO; taking PO meds in apple sauce; will talk with Hospice Dr. Lloyd note appreciated Off Cardizem gtt; WBC's and Creatinine have increased Objective Findings Laboratory Tests 12/30/16 0615: Sodium 143, Potassium 4.1, Chloride 112 H, Carbon Dioxide 20 L, BUN 65 H, Creatinine 2.6 H, Estimated Creat Clear 32 L, Estimated GFR (MDRD) 24, Glucose 118 H, Calcium 8.0 L, WBC 33.0 *H, RBC 3.83 L, Hgb 9.8 L, Hct 34.0 L, MCV 88.6, RDW 18.2 H, Plt Count 187, MPV 7.6, Gran % 91.0 H, Gran # 30.0 H, Lymphocytes % 2.7 L, Monocytes % 6.1, Eosinophils % 0.1, Basophils % 0.1, Lymphocytes # 0.9, Monocytes # 2.0 H, Eosinophils # 0.0, Basophils # 0.0, PUBS MCHC 29.0 L, MCH 25.7 L Vital Signs Date Time Temp Pulse Resp B/P Pulse O2 O2 Flow FiO2 Ox Delivery Rate 12/30 0731 3 12/30 0647 16 12/30 0642 3 12/30 0606 3 12/30 0518 3 12/30 0400 97.5 12/30 0400 3 12/30 0400 97.5 117 16 118/65 93 3 12/30 0335 3 12/30 0200 66 111/64 93 OXYGEN 3 12/30 0151 15 12/30 0151 3 12/30 0127 3 12/30 0000 97.0 12/30 0000 3 12/29 2258 3 12/29 2200 88 15 96/55 92 OXYGEN 3 12/292 3 12/29 2112 17 12/296 3 12/29 2000 97.1 80 17 86/55 92 3 12/29 1953 97.1 12/29 1953 3 12/29 1800 97.6 82 20 107/56 96 OXYGEN 3 12/29 1759 3 12/29 1600 3 12/29 1600 97.8 108 20 120/64 91 OXYGEN 3 12/29 1500 97.6 87 20 119/61 96 OXYGEN 3 12/29 1458 24 12/29 1322 3 12/29 1300 3 12/29 1300 97.6 112 24 109/63 97 3 12/29 1200 97.6 99 20 99/66 96 OXYGEN 3 12/29 1141 3 12/29 1100 97.7 96 20 104/49 96 OXYGEN 3 12/29 1000 3 12/29 1000 97.6 105 20 120/70 95 OXYGEN 3 Current Medications Vancomycin HCl 125 MG Q6 PO Morphine Sulfate 0 .STK-MED ONE .ROUTE (DC) Morphine Sulfate 0 .STK-MED ONE .ROUTE (DC) Vancomycin HCl 0 .STK-MED ONE .ROUTE (DC) Morphine Sulfate 0 .STK-MED ONE .ROUTE (DC) Diphenhydramine HCl 0 .STK-MED ONE PO (DC) Gabapentin 0 .STK-MED ONE .ROUTE (DC) Gabapentin 0 .STK-MED ONE .ROUTE (DC) Tramadol HCl 0 .STK-MED ONE .ROUTE (DC) Vancomycin HCl 0 .STK-MED ONE .ROUTE (DC) Vancomycin HCl 125 MG Q6H PO (DC) Ondansetron HCl 0 .STK-MED ONE .ROUTE (DC) Morphine Sulfate 0 .STK-MED ONE .ROUTE (DC) Diltiazem HCl 60 MG Q8 PO Morphine Sulfate 4 MG Q2HP PRN IV Metronidazole 100 ML Q8 IV (DC) Sodium Chloride 10 ML PRN PRN IV Ondansetron HCl 4 MG Q6HP PRN IV Sodium Chloride 1,000 ML .Q10H IV Diltiazem HCl 100 MG .Q10H IV Sodium Chloride 100 ML 12/29 1500 12/29 2300 12/30 0700 Intake Total 240 3370 Output Total 400 75 Balance 240 -400 3295 Intake, IV 3370 Intake, Oral 240 Output, Stool Output, Urine 400 75 Patient 187 lb 197 lb Weight Last VS-Temp:97.5 B/P:118/65 Pulse:117 Resp:16 SaO2:93 OXYGEN Last weight lbs:197 oz:3 K.443 Method:Bed Scales Exam General appearance: does not awakened with gentle exam Cardiovascular: irregularly irregular, monitor showing At Fib with V Rate 100 -110 Respiratory: breath sounds sound equal anteriorly; RR easy/ not labored ABD: soft, no tenderness, no guarding, bowel sounds present Extremities: trace of leg edema Neuro: does respond with verbal stimulus Assessment/Plan Problem List 1. C. difficile colitis Status: Acute 2. Atrial fibrillation with rapid ventricular response Status: Acute 3. Acute kidney injury Status: Acute 4. Altered mental state Status: Acute 5. Chronic atrial fibrillation Status: Chronic 6. Renal insufficiency Status: Chronic 7. Pleural effusion on right Status: Chronic 8. Debility Status: Chronic 9. CHF (congestive heart failure) Status: Chronic 10. Cirrhosis Status: Chronic 11. Anasarca Status: Chronic 12. Liver failure Status: Chronic 13. Essential hypertension Status: Chronic 14. Anxiety Status: Chronic Patient condition poor and guarded Plan: will continue with PO ABX and IVF; maintain comfort; JOSEMANUEL Gupta, will talk with Hospice This inpt stay is expected to cross 2 MNs from start of care Yes (Anne Traore APRN) Subjective Date 12/30/16 Assessment/Plan Problem List 1. C. difficile colitis Status: Acute 2. Atrial fibrillation with rapid ventricular response Status: Acute 3. Acute kidney injury Status: Acute 4. Altered mental state Status: Acute 5. Chronic atrial fibrillation Status: Chronic 6. Renal insufficiency Status: Chronic 7. Pleural effusion on right Status: Chronic 8. Debility Status: Chronic 9. CHF (congestive heart failure) Status: Chronic 10. Cirrhosis Status: Chronic 11. Anasarca Status: Chronic 12. Liver failure Status: Chronic 13. Essential hypertension Status: Chronic 14. Anxiety Status: Chronic Plan: Pt seen and examined this AM. Agree he is less responsive. Had long discussion with POA this AM regarding short and extermination inspector prognosis. His immediate concern is the colitis. With the increase in WBC today, does not seem to be responding to antibiotics although was just started on PO Vancomycin last night per GI recommendations. [facility] prognosis is poor given his cirrhosis, ascites, hepatic hydrothorax, renal failure, cardiac dysrhythmia, weight loss, and protein malnutrition. With this in mind, we discussed Hospice consult and Anamaria is agreeable to speak with Hospice installation service representative but not yet ready to enroll in Hospice. She would like to see how he responds to antibiotic treatment over next 48-72 hours. (Harinder Husain MD) at 0906 at [phone]
[2016-12-30 13:36] LABS: NEUTROPHILS 94 % (42-76)
[2016-12-30 16:00] VITALS: BP 136/70
[2016-12-30 19:20] VITALS: BP 120/59
[2016-12-30 20:18] VITALS: BP 120/59
[2016-12-31] VITALS (7 sets, daily range): BP systolic 113–135; BP diastolic 68–81
[2016-12-31 07:29] LABS: LYMPH # 1.5 K/mm3 (0.7-4.5)
[2016-12-31 07:39] LABS: HEMOGLOBIN 11.6 g/dL (14.1-18.0)
--- NOTE | 2016-12-31 08:14 | ACUTE CARE PROGRESS NOTE (QUA) ---
Progress Notes Subjective Date 12/31/16 Time 0808 Note answers questions at times; voice very weak; less pain med required; no stools; aquino in place Family has not decided about Hospice WBC and Creatinine increased. Objective Findings Laboratory Tests 12/31/16 0610: Sodium 143, Potassium 4.1, Chloride 112 H, Carbon Dioxide 19 L, BUN 72 H, Creatinine 2.9 H, Estimated Creat Clear 29 L, Estimated GFR (MDRD) 21, Glucose 70 L, Calcium 8.6, WBC 38.5 *H, RBC 4.49 L, Hgb 11.6 L, Hct 40.6 L, MCV 90.3 , RDW 18.3 H, Plt Count 216, MPV 7.7, Gran % 86.6 H, Gran # 33.4 H, Lymphocytes % 4.0 L, Monocytes % 9.2, Eosinophils % 0.1, Basophils % 0.1, Lymphocytes # 1.5, Monocytes # 3.6 H, Eosinophils # 0.0, Basophils # 0.0, PUBS MCHC 28.4 L, MCH 25.7 L Vital Signs Date Time Temp Pulse Resp B/P Pulse O2 O2 Flow FiO2 Ox Delivery Rate 12/31 0735 3 12/31 0607 3 12/31 0544 3 12/31 0400 3 12/31 0400 97.2 79 18 135/79 91 OXYGEN 3 12/31 0334 3 12/31 0200 3 12/31 0100 3 12/31 0000 3 12/31 0000 96.6 64 16 117/76 94 OXYGEN 3 12/30 2353 16 12/30 2300 3 12/30 2200 3 12/30 2130 3 12/30 2017 3 12/30 2017 97.7 64 16 120/59 96 OXYGEN 3 12/30 1920 3 12/30 1920 97.7 64 16 120/59 96 3 12/30 1907 16 12/30 1900 3 12/30 1700 3 12/30 1606 3 12/30 1600 96.6 65 16 136/70 94 OXYGEN 3 12/30 1500 3 12/30 1500 3 12/30 1400 3 12/30 1300 3 12/30 1134 3 12/30 0938 3 12/30 0900 3 12/30 0900 97.6 110 16 121/67 93 3 Current Medications Metronidazole 100 ML Q6 IV Diltiazem HCl 0 .STK-MED ONE .ROUTE (DC) Morphine Sulfate 0 .STK-MED ONE .ROUTE (DC) Diltiazem HCl 60 MG Q8 PO Morphine Sulfate 0 .STK-MED ONE .ROUTE (DC) Sodium Chloride 1,000 ML .Q10H IV Diltiazem HCl 100 MG .Q10H IV (CAN) Sodium Chloride 100 ML Vancomycin HCl 125 MG Q6 PO Morphine Sulfate 4 MG Q2HP PRN IV Ondansetron HCl 4 MG Q6HP PRN IV Sodium Chloride 10 ML PRN PRN IV Vancomycin HCl 125 MG Q6 PO (DC) Diltiazem HCl 60 MG Q8 PO (DC) Morphine Sulfate 4 MG Q2HP PRN IV (DC) Sodium Chloride 10 ML PRN PRN IV (DC) Ondansetron HCl 4 MG Q6HP PRN IV (DC) Sodium Chloride 1,000 ML .Q10H IV (DC) Diltiazem HCl 100 MG .Q10H IV (DC) Sodium Chloride 100 ML 12/30 1500 12/30 2300 12/31 0700 Intake Total 642 Output Total 150 Balance 492 Intake, IV 642 Output, Stool Output, Urine 150 Last VS-Temp:97.2 B/P:135/79 Pulse:79 Resp:18 SaO2:91 OXYGEN Last weight lbs:197 oz:3 K.443 Method:Bed Scales Exam General appearance: alert, no acute distress, cachetic Cardiovascular: irregularly irregular Respiratory: decreased breath sounds on the right ABD: bowel sounds present, more distended Extremities: trace ankle edema Neuro: follows people with his eyes; answers some questions Assessment/Plan Problem List 1. C. difficile colitis Status: Acute 2. Atrial fibrillation with rapid ventricular response Status: Acute 3. Acute kidney injury Status: Acute 4. Altered mental state Status: Acute 5. Chronic atrial fibrillation Status: Chronic 6. Renal insufficiency Status: Chronic 7. Pleural effusion on right Status: Chronic 8. Debility Status: Chronic 9. CHF (congestive heart failure) Status: Chronic 10. Cirrhosis Status: Chronic 11. Anasarca Status: Chronic 12. Liver failure Status: Chronic 13. Essential hypertension Status: Chronic 14. Anxiety Status: Chronic Patient condition Deteriorating Plan: continue current care, add Flagyl back; Family continues to consider Hospice This inpt stay is expected to cross 2 MNs from start of care Yes (Anne Traore APRN) Assessment/Plan Problem List 1. C. difficile colitis Status: Acute 2. Atrial fibrillation with rapid ventricular response Status: Acute 3. Acute kidney injury Status: Acute 4. Altered mental state Status: Acute 5. Chronic atrial fibrillation Status: Chronic 6. Renal insufficiency Status: Chronic 7. Pleural effusion on right Status: Chronic 8. Debility Status: Chronic 9. CHF (congestive heart failure) Status: Chronic 10. Cirrhosis Status: Chronic 11. Anasarca Status: Chronic 12. Liver failure Status: Chronic 13. Essential hypertension Status: Chronic 14. Anxiety Status: Chronic Comments: Patient seen and agree with above note. (Tanmay Carrillo MD) at 0814 at 0818
[2017-01-01] VITALS (7 sets, daily range): BP systolic 98–127; BP diastolic 58–77
--- NOTE | 2017-01-01 10:46 | ACUTE CARE PROGRESS NOTE (QUA) ---
Progress Notes Subjective Date 01/01/17 Time 1043 Note No new problems reported today Objective Findings Vital Signs Date Time Temp Pulse Resp B/P Pulse O2 O2 Flow FiO2 Ox Delivery Rate 01/01 1033 3 01/01 1020 18 01/01 0950 3 01/01 0823 97.8 65 18 115/74 96 OXYGEN 01/01 0649 3 01/01 0606 3 01/01 0540 20 01/01 0512 3 01/01 0458 3 01/01 0458 97.4 59 20 121/77 94 OXYGEN 3 01/01 0306 3 01/01 0157 18. 01/01 0154 3 01/01 0100 3 01/01 0010 3 01/01 0007 97.6 80 18. 127/62 94 OXYGEN 3 12/31 2300 3 12/31 2220 3 12/31 210 97.6 52 18 119/71 94 3 12/31 2103 3 12/31 2054 18 12/31 1952 97.6 52 18 119/71 94 OXYGEN 3 12/31 1837 3 12/31 1700 3 12/31 1600 98.0 68 18 119/68 96 OXYGEN 12/31 1500 3 12/31 1300 3 12/31 1200 96.8 58 20 113/81 95 OXYGEN 12/31 1100 3 I&O Past 24 Hrs-ending at 0700 01/01 0700 Intake Total 2804 Output Total 350 Balance 2454 Last VS-Temp:97.8 B/P:115/74 Pulse:65 Resp:18 SaO2:96 OXYGEN Last weight lbs:207 oz:2 K.95 Method:Bed Scales Exam General appearance: responsive (by sedate) ENT: mucous membranes moist Cardiovascular: irregular rate & rhythm ABD: distended Assessment/Plan Problem List 1. C. difficile colitis Status: Acute 2. Atrial fibrillation with rapid ventricular response Status: Acute 3. Acute kidney injury Status: Acute 4. Altered mental state Status: Acute 5. Chronic atrial fibrillation Status: Chronic 6. Renal insufficiency Status: Chronic 7. Pleural effusion on right Status: Chronic 8. Debility Status: Chronic 9. CHF (congestive heart failure) Status: Chronic 10. Cirrhosis Status: Chronic 11. Anasarca Status: Chronic 12. Liver failure Status: Chronic 13. Essential hypertension Status: Chronic 14. Anxiety Status: Chronic Patient condition Deteriorating This inpt stay is expected to cross 2 MNs from start of care Yes Comments: Patient has not improved with treatment, had a long discussion with patient's cousin, who is his POA. She plans on accepting Hospice care tomorrow. Will transition to more palliative care, she would like to continue treatment for C.diff. at [phone]
[2017-01-02] VITALS (7 sets, daily range): BP systolic 107–146; BP diastolic 57–97
--- NOTE | 2017-01-02 08:10 | ACUTE CARE PROGRESS NOTE (QUA) ---
Progress Notes Subjective Date 01/02/17 Time 0810 Assessment/Plan Problem List 1. C. difficile colitis Status: Acute 2. Atrial fibrillation with rapid ventricular response Status: Acute 3. Acute kidney injury Status: Acute 4. Altered mental state Status: Acute 5. Chronic atrial fibrillation Status: Chronic 6. Renal insufficiency Status: Chronic 7. Pleural effusion on right Status: Chronic 8. Debility Status: Chronic 9. CHF (congestive heart failure) Status: Chronic 10. Cirrhosis Status: Chronic 11. Anasarca Status: Chronic 12. Liver failure Status: Chronic 13. Essential hypertension Status: Chronic 14. Anxiety Status: Chronic This inpt stay is expected to cross 2 MNs from start of care Yes Antibiotic Stewardship (2) Current Culture Results Microbiology 12/27 1821 BLOOD: Anaerobic Blood Culture - CAN Cancelled: PER KIERSTEN NEWMAN 12/27 1821 BLOOD: Aerobic Blood Culture - CAN Cancelled: PER KIERSTEN NEWMAN Infxn that will respond? Yes (C. DIFF) Right drug,dose,and route? Yes (PO VANC) More targeted antbx? No at 0810
--- NOTE | 2017-01-02 08:26 | ACUTE CARE PROGRESS NOTE (QUA) ---
See Addendum Progress Notes Subjective Date 01/02/17 Time 0735 Note Pt resting quietly with family at bedside, still with non-productive cough, no response to verbal stimuli. Family considering hospice. Objective Findings Last VS-Temp:97.9 B/P:135/97 Pulse:50 Resp:18 SaO2:95 OXYGEN Last weight lbs:212 oz:1 K.19 Method:Bed Scales Exam General appearance: no acute distress Cardiovascular: irregular Respiratory: diminished with rhonchi throughout ABD: distended Extremities: trace BUE edema, 2+ BLE edema Neuro: non-verbal, non-responsive to voice or touch Reviewed: vital signs, nursing notes Assessment/Plan Problem List 1. C. difficile colitis Status: Acute 2. Atrial fibrillation with rapid ventricular response Status: Acute 3. Acute kidney injury Status: Acute 4. Altered mental state Status: Acute 5. Chronic atrial fibrillation Status: Chronic 6. Renal insufficiency Status: Chronic 7. Pleural effusion on right Status: Chronic 8. Debility Status: Chronic 9. CHF (congestive heart failure) Status: Chronic 10. Cirrhosis Status: Chronic 11. Anasarca Status: Chronic 12. Liver failure Status: Chronic 13. Essential hypertension Status: Chronic 14. Anxiety Status: Chronic Patient condition Deteriorating Plan: continue with more palliative care, await family decision regarding hospice This inpt stay is expected to cross 2 MNs from start of care Yes at 0826 at 0846
[2017-01-02 09:47] LABS: HEMOGLOBIN 11.2 g/dL (14.1-18.0); LYMPH # 1.3 K/mm3 (0.7-4.5); LYMPH % 4.8 % (10-50)
[2017-01-02 11:13] LABS: NEUTROPHILS 82 % (42-76)
--- NOTE | 2017-01-02 11:29 | RADIOLOGY REPORT PS360 ---
CHEST-PORTABLE COMPARISON: Portable upright chest 12/27/2016 HISTORY: Follow-up pneumonia pleural effusion TECHNIQUE: Portable upright chest FINDINGS: Diffuse pneumonia remains in right perihilar region extending to the right upper lobe and involving the right lower lobe. There is a [id number] sized pleural effusion along the right chest wall with fluid extending into the minor fissure. There is lateral elevation of the right hemidiaphragm likely due to subpulmonic pleural fluid. There is been little or no interval improvement from the previous chest films in early December. Left lung field remains well expanded and clear. There is cardio megaly with left ventricular prominence but there is no evidence of failure. The PICC line has been removed. IMPRESSION: Persistent diffuse pneumonia involving the right lung sparing of the right apex associated with moderate sized right pleural effusion some of which is subpulmonic in location
--- NOTE | 2017-01-02 11:29 | RADIOLOGY REPORT PS360 ---
CHEST-PORTABLE COMPARISON: Portable upright chest 12/27/2016 HISTORY: Follow-up pneumonia pleural effusion TECHNIQUE: Portable upright chest FINDINGS: Diffuse pneumonia remains in right perihilar region extending to the right upper lobe and involving the right lower lobe. There is a [id number] sized pleural effusion along the right chest wall with fluid extending into the minor fissure. There is lateral elevation of the right hemidiaphragm likely due to subpulmonic pleural fluid. There is been little or no interval improvement from the previous chest films in early December. Left lung field remains well expanded and clear. There is cardio megaly with left ventricular prominence but there is no evidence of failure. The PICC line has been removed. IMPRESSION: Persistent diffuse pneumonia involving the right lung sparing of the right apex associated with moderate sized right pleural effusion some of which is subpulmonic in location
[2017-01-03 03:59] VITALS: BP 110/80
[2017-01-03 08:22] VITALS: BP 133/80
[2017-01-03 08:43] VITALS: BP 133/80
[2017-01-03 12:11] VITALS: BP 140/85
--- NOTE | 2017-01-03 14:18 | ACUTE CARE PROGRESS NOTE (QUA) ---
Progress Notes Subjective Date 01/03/17 Time 1416 Note He appears stable today. He was evaluated by Hospice yesterday. Orders were adjusted accordingly. He actually seems to have less edema today. Objective Findings Last VS-Temp:97.0 B/P:140/85 Pulse:47 Resp:24 SaO2:93 OXYGEN Last weight lbs:214 oz:1 K.097 Method:Floor Scales Exam General appearance: not very responsive Cardiovascular: regular rate & rhythm Respiratory: no respiratory distress Extremities: edema (seems less) Assessment/Plan Problem List 1. C. difficile colitis Status: Acute 2. Atrial fibrillation with rapid ventricular response Status: Acute 3. Acute kidney injury Status: Acute 4. Altered mental state Status: Acute 5. Chronic atrial fibrillation Status: Chronic 6. Renal insufficiency Status: Chronic 7. Pleural effusion on right Status: Chronic 8. Debility Status: Chronic 9. CHF (congestive heart failure) Status: Chronic 10. Cirrhosis Status: Chronic 11. Anasarca Status: Chronic 12. Liver failure Status: Chronic 13. Essential hypertension Status: Chronic 14. Anxiety Status: Chronic Patient condition Guarded Plan: continue current care This inpt stay is expected to cross 2 MNs from start of care Yes at 1418
[2017-01-03 16:17] VITALS: BP 101/62
[2017-01-03 20:00] VITALS: BP 130/68
[2017-01-04] VITALS: BP 131/78
[2017-01-04 04:00] VITALS: BP 134/93
[2017-01-04 08:18] VITALS: BP 132/96
[2017-01-04 12:30] VITALS: BP 125/60
--- NOTE | 2017-01-04 14:53 | ACUTE CARE PROGRESS NOTE (QUA) ---
Progress Notes Subjective Date 01/04/17 Time 1451 Note He is truthfully, about the same. He does raise his LEFT hand when I speak to him. He has some edema related to anasarca. His respirations are somewhat rattling but is in no respiratory distress. He does cough occasionally. Objective Findings Last VS-Temp:97.3 B/P:125/60 Pulse:66 Resp:20 SaO2:94 OXYGEN Last weight lbs:214 oz:1 K.097 Method:Floor Scales Exam General appearance: no acute distress Eyes: anicteric Cardiovascular: regular rate & rhythm Respiratory: no respiratory distress ABD: soft Genitourinary: urine is concentrated. Catheter in place. Extremities: edema (trace) Assessment/Plan Problem List 1. C. difficile colitis Status: Acute 2. Atrial fibrillation with rapid ventricular response Status: Acute 3. Acute kidney injury Status: Acute 4. Altered mental state Status: Acute 5. Chronic atrial fibrillation Status: Chronic 6. Renal insufficiency Status: Chronic 7. Pleural effusion on right Status: Chronic 8. Debility Status: Chronic 9. CHF (congestive heart failure) Status: Chronic 10. Cirrhosis Status: Chronic 11. Anasarca Status: Chronic 12. Liver failure Status: Chronic 13. Essential hypertension Status: Chronic 14. Anxiety Status: Chronic Patient condition Guarded Plan: continue current care This inpt stay is expected to cross 2 MNs from start of care Yes at 1454
[2017-01-04 16:09] VITALS: BP 107/86
[2017-01-04 20:12] VITALS: BP 149/64
--- NOTE | 2017-01-07 15:49 | DISCHARGE SUMMARY STANDARD ---
Discharge Summary (FCA2) Date of admission: 12/27/16 Date of discharge: 01/04/17 Problem List: 1. C. difficile colitis 2. Atrial fibrillation with rapid ventricular response 3. Acute kidney injury 4. Altered mental state 5. Chronic atrial fibrillation 6. Renal insufficiency 7. Pleural effusion on right 8. Debility 9. CHF (congestive heart failure) 10. Cirrhosis 11. Anasarca 12. Liver failure 13. Essential hypertension 14. Anxiety History of present illness: Mr. Wu was a 71 year old patient of Dr. Levy with a history of mental retardation and numerous recent hospital admissions. He presented to the [facility] ER with the complaint of frequent yelling out episodes associated with staring spells and decreased level on interaction. Patient had chronic a. fib, he had recently been diagnosed with cirrhosis with ascites and had recently had problems with diarrhea. During ER evaluation, HR was noted to be in the 170s with a. fib. He was admitted for further evaluation and treatment. Exam on admission: General appearance: awake (non communicative) Eyes: pupils reactive to light ENT: mucous membranes moist Cardiovascular: irregularly irregular Respiratory: distant breath sounds ABD: no rebound, soft, no tenderness Extremities: edema (bilateral lower) Hospital Course: The patient was placed on a cardizem drip which controlled his rate and he was able to be switched to PO cardizem. A CT of the abd/pelvis showed a right pleural effusion and colitis. His stool tests were positive for C. Diff. He was started on Flagyl and IVF's. He had a CXR showing worsening of his right pleural effusion. GI was consulted. He was seen by GI and they felt he would need paracentesis with albumin replacement. They recommended to avoid thoracentesis. They also recommended oral vancomycin for his C. Diff. He was started on oral vancomycin but his WBC continued to rise as did his renal functions. His poor prognosis was discussed with his POA who decided to pursue hospice. Hospice was consulted and the patient was switched to palliative care. He on 01/06/17. Disposition: Pt on 01/06/17 at 4600
== END 2017-01-04 20:37 | disposition expired | DRG 372 ==
LOC: ER 16:52 → 2ND 18:49 → ER 18:49 → 2ND 20:01
PROVIDERS: Emergency Medicine; Family Medicine
DX: A04.72 Enterocolitis due to Clostridium difficile, not specified as recurrent (principal); K76.6 Portal hypertension; I48.2 Chronic atrial fibrillation; I50.9 Heart failure, unspecified; K70.31 Alcoholic cirrhosis of liver with ascites; F10.21 Alcohol dependence, in remission; F79 Unspecified intellectual disabilities
CPT/HCPCS: J2405; J2543; J3370